=== PATIENT | female | born 1940 | race Caucasian/White ===

== ENCOUNTER 2016-10-30 12:22 | Outpatient (CLI) | payer MEDICARE ==
[~2016-10-30] VITALS: Ht 175.3 cm; Wt 96.6 kg
[~2016-10-30 12:22] MED LIST: AMOX500C2; AMOX500C2 PO; ASP81CT PO; ASPI-198 PO; ASPI-892 PO; CARB1DRO19 OP; CARV6.252 PO; CLOP75TA PO; DEXT1DRO7 OP; DILT90TA18 PO; DLT90CCR; DOXY100C2 PO; EYE SUPPLEMENT PO; FISH PO; I-VITE PO; IBUP200C92 PO; INSASP10V; INSASP10V SC; INSASP10V SQ; INSU100V5 SQ; INSU100V6; LEVO75TA58 PO; LORA10CA PO; MTF500T PO; NAPR-248 PO; NIAC-4 PO; NOVALOG; OMEP20CA6 PO; PRAV40TA PO; PRD20T PO
--- OUTSIDE RECORDS SUMMARY | 2016-10-30 12:28 | XMS REPORT | Continuity of Care Document ---
Author Author [facility] Organization [facility] Address Unknown Phone Unavailable Allergies Active Description Code Type Severity Reaction Onset Reported/Identified Relationship to Patient Clinical Status Yes adhesive [id number] Drug Allergy Unknown N/A 08/11/2013 Yes lisinopril [id number] Drug Allergy Unknown COUGH 08/11/2013 Yes Isnrefb-Ylw-Wgc Reductase Inhibitor [id number] Drug Allergy Unknown MUSCLE PAIN 08/11/2013 Yes lisinopril lisinopril Drug Allergy Severe COUGH 08/10/2014 Yes Uwclotq-Tle-Aae Reductase Inhibitor Muhpqxn-Ppd-Iaw Reductase Inhibitor Drug Allergy Severe MUSCLE ACHES 08/10/2014 Medications Problems Date Dx Coded Attending Type Code Diagnosis Diagnosed By 09/11/2010 Ot 562.10 09/11/2010 Ot V12.72 09/11/2010 Ot V76.51 01/15/2011 Ot 244.9 01/15/2011 Ot 401.9 01/15/2011 Ot 719.46 01/15/2011 Ot 724.3 01/15/2011 Ot V57.1 02/05/2011 Ot 250.00 02/05/2011 Ot 272.4 02/05/2011 Ot 309.0 02/05/2011 Ot 401.9 02/05/2011 Ot 434.91 02/05/2011 Ot 728.87 02/05/2011 Ot 784.59 02/05/2011 Ot 787.20 02/05/2011 Ot V58.67 04/03/2013 BRANDON GAYLE Ot 692.9 04/03/2013 BRANDON GAYLE Ot 911.4 04/03/2013 BRANDON GAYLE Ot E000.8 04/03/2013 BRANDON GAYLE Ot E906.4 08/16/2013 EDWIN DDS, KEYANNA Ot 173.31 08/16/2013 LOWKeren DDS, KEYANNA Ot 173.32 08/16/2013 LOWKeren DDS, KEYANNA Ot 250.00 08/16/2013 LOWE DDS, KEYANNA Ot 401.9 08/16/2013 LOWE DDS, KEYANNA Ot V58.69 08/07/2014 Ot 794.5 08/07/2014 Ot 250.00 08/07/2014 Ot 272.4 08/07/2014 Ot 401.9 08/07/2014 Ot 786.09 08/07/2014 LOWE DDS, KEYANNA Ot 173.31 08/07/2014 LOWE DDS, KEYANNA Ot V72.81 08/07/2014 LOWE DDS, KEYANNA Ot V74.8 08/15/2014 JUD ALLRED MD, Ot V72.84 08/30/2014 JUD ALLRED MD, Ot V72.84 09/25/2014 JUD ALLRED MD, Ot V72.84 Procedures Code Description Performed By Performed On 65.63 LAPAROSCOP REMOVE OVARIES/TUBES Jud Allred MD 08/11/2014 70.78 VAGINAL SUSPENSION AND FIXATION WITH GRAFT OR PROS Jud Allred MD 08/11/2014 Results Test Result Range CBC - 08/11/14 13:29 MEAN CELL HGB 27.5 pg 27.0-33.0 MEAN CELL HGB CONCENTRATION 31.6 g/dL 32.0-37.0 MEAN CELL VOLUME 86.8 fl 80.0-100.0 RED BLOOD CELL 4.33 m/cumm 4.00-6.00 RED CELL DISTRIBUTION WIDTH 13.8 % 11.0- 15.6 WHITE BLOOD CELL 4.0 k/cumm 5.0-10.0 HEMOGLOBIN 11.9 gm/dL 12.0-16.0 HEMATOCRIT 37.6 % 37.0-47.0 PLATELET COUNT 145 k/cumm 150-400 MRSA SURVEILLANCE SCREEN - 08/11/14 13:29 Microbiology METABOLIC PANEL, BASIC - 08/11/14 13:30 POTASSIUM 4.0 mmol/L 3.5-5.3 EST GFR (MDRD) > 60 mL/min > 59 ANION GAP 7 mmol/L 5-15 EST CrCl (CG) > 60 mL/min > 59 GLUCOSE 115 mg/dL 70-99 CALCIUM 9.7 mg/dL 8.5-10.1 BLOOD UREA NITROGEN 26 mg/dL 7-20 CREATININE 0.8 mg/dL 0.6-1.0 SODIUM 144 mmol/L 135-148 CHLORIDE 107 mmol/L 98-110 CARBON DIOXIDE 30 mmol/L 21-32 GLUCOSE (POC) - 08/11/14 13:56 GLUCOSE (POC) 107 mg/dL 70-99 GLUCOSE (POC) - 08/11/14 20:55 GLUCOSE (POC) 163 mg/dL 70-99 HGB HCT - 08/11/14 22:20 MEAN CELL VOLUME 84.5 fl 80.0-100.0 HEMOGLOBIN 12.1 gm/dL 12.0-16.0 HEMATOCRIT 36.0 % 37.0-47.0 CBC - 08/12/14 05:22 MEAN CELL HGB 27.6 pg 27.0-33.0 MEAN CELL HGB CONCENTRATION 32.4 g/dL 32.0-37.0 MEAN CELL VOLUME 85.2 fl 80.0-100.0 RED BLOOD CELL 4.20 m/cumm 4.00-6.00 RED CELL DISTRIBUTION WIDTH 13.7 % 11.0- 15.6 WHITE BLOOD CELL 7.1 k/cumm 5.0-10.0 HEMOGLOBIN 11.6 gm/dL 12.0-16.0 HEMATOCRIT 35.8 % 37.0-47.0 PLATELET COUNT 124 k/cumm 150-400 GLUCOSE (POC) - 08/12/14 06:38 GLUCOSE (POC) 155 mg/dL 70-99 GLUCOSE (POC) - 08/12/14 10:52 GLUCOSE (POC) 196 mg/dL 70-99 Encounters ACCT No. Visit Date/Time Discharge Status Pt. Type Provider Facility Loc./Unit Complaint [id number] 08/07/2014 08:38:00 2013 23:59:59 CLS Outpatient JUD ALLRED MD [facility] CARD [id number] 08/15/2013 10:38:00 2012 11:00:00 DIS Outpatient EDWIN NEVAREZKEYANNA [facility] SDC [id number] 08/11/2013 12:31:00 2012 23:59:59 CLS Outpatient EDWIN NEVAREZROSALINDAEW [facility] PREOP [id number] 04/03/2013 18:40:00 2012 21:17:00 DIS Emergency BRANDON GAYLE [facility] ER [id number] 06/16/2011 09:52:00 Document Registration [id number] 02/03/2011 08:17:00 Document Registration [id number] 01/15/2011 08:35:00 Document Registration [id number] 09/11/2010 07:40:00 Document Registration [id number] 01/11/2010 14:45:00 Document Registration
[2016-10-30] MEDS ORDERED: CARB15DR3 OP (12:52)
[2016-10-30] MEDS ORDERED: [UNRECOGNIZED DRUG - CODE] TP (12:52)
[2016-10-30] MEDS ORDERED: CARV12.53 PO (12:52)
[2016-10-30] MEDS ORDERED: METF500T4 PO (12:52)
[2016-10-30] MEDS ORDERED: OXYB10TA PO (12:52)
[2016-10-30] MEDS ORDERED: MELO15TA39 PO (12:52)
[2016-10-30] MEDS ORDERED: CHOL10007 PO (12:52)
[2016-10-30] MEDS ORDERED: VIT1CAPS44 PO (12:52)
[2016-10-30] MEDS ORDERED: NF-COLE1GM PO (12:52)
[2016-10-30] MEDS ORDERED: POLY17PO6 PO (12:57)
[2016-10-30 12:59] VITALS: BP 149/82
[2016-10-30 13:37] LABS: BASOPHILS % (AUTO) 0 % (0-10); EOSINOPHILS # (AUTO) 0.1 10^3/uL (0.0-0.3); EOSINOPHILS % (AUTO) 2 % (0-10); LYMPHOCYTES # (AUTO) 1.3 X 10^3 (1.0-4.0); LYMPHOCYTES % (AUTO) 25 % (12-44); MEAN CORPUSCULAR HEMOGLOBIN 28 PG (25-34); MEAN CORPUSCULAR HGB CONC 33 G/DL (32-36); MEAN CORPUSCULAR VOLUME 84 FL (80-99); MEAN PLATELET VOLUME 10.9 FL (7.4-10.4); MONOCYTES # (AUTO) 0.3 X 10^3 (0.0-1.0); MONOCYTES % (AUTO) 6 % (0-12); NEUTROPHILS # (AUTO) 3.5 X 10^3 (1.8-7.8); NEUTROPHILS % (AUTO) 67 % (42-75); PLATELET COUNT 156 10^3/uL (130-400); RED CELL DISTRIBUTION WIDTH 13.9 % (10.0-14.5); WHITE BLOOD COUNT 5.2 10^3/uL (4.3-11.0)
[2016-10-30 14:00] LABS: ALBUMIN 4.2 G/DL (3.2-4.5); BILIRUBIN,TOTAL 0.6 MG/DL (0.1-1.0); CALCIUM 9.7 MG/DL (8.5-10.1); CREATININE SERUM 0.94 MG/DL (0.60-1.30); POTASSIUM 4.4 MMOL/L (3.6-5.0); TOTAL PROTEIN 6.7 G/DL (6.4-8.2)
== END 2016-10-30 14:51 | disposition home or self-care (01) ==
LOC: PREOP 12:22
PROVIDERS: ATTEND Otolaryngology Otolaryngology/Facial Plastic Surgery
DX: Z01.812 Encounter for preprocedural laboratory examination (principal); Z01.818 Encounter for other preprocedural examination; Z11.2 Encounter for screening for other bacterial diseases; L98.9 Disorder of the skin and subcutaneous tissue, unspecified; E11.9 Type 2 diabetes mellitus without complications
CPT/HCPCS: 36415; 80053; 85025; 87081; 93005

== ENCOUNTER 2016-11-07 06:49 | Day surgery (SDC) | payer MEDICARE ==
[~2016-11-07] VITALS: Ht 175.3 cm; Wt 96.6 kg
[~2016-11-07 06:49] MED LIST changes: +CARB15DR3 OP; +CARV12.53 PO; +CHOL10007 PO; +MELO15TA39 PO; +METF500T4 PO; +NF-COLE1GM PO; +OXYB10TA PO; +POLY17PO6 PO; +VIT1CAPS44 PO; +[UNRECOGNIZED DRUG - CODE] TP
--- OUTSIDE RECORDS SUMMARY | 2016-11-07 06:53 | XMS REPORT | Continuity of Care Document ---
Author Author [facility] Organization [facility] Address Unknown Phone Unavailable Care Team Providers Care Hematology Technician Name Role Phone HUGO ALEXIS MD PCP Insurance Providers Payer Name Policy Number Subscriber Name Relationship Wps Medicare [id number] Leonora Tompkins 18 Self / Same As Patient Blue Cross [facility] Supp [id number] Leonora Tompkins 18 Self / Same As Patient Advance Directives Directive Response Recorded Date/Time Advance Directives Yes 10/30/16 12:41pm Health Care Power of Package Delivery Room Service Runner Yes 10/30/16 12:41pm Organ Donor Yes 08/15/13 8:23pm Resuscitation Status Full Code 10/30/16 12:41pm Problems No problem information available. Medications Current Home Medications Medication Dose Units Route Directions Days/Qty Instructions Start Date Levothyroxine Sodium 75 Mcg 75 Mcg Oral Daily 02/01/11 Loratadine 10 Mg 10 Mg Oral Daily 02/01/11 Omeprazole 20 Mg 20 Mg Oral Daily 02/01/11 Insulin Aspart 10 Unit/0.1 Ml 8 Unit Subcutaneously Twice A Day 08/12 Insulin Detemir 100 Unit/1 Ml 10 Unit Sub-Q Bedtime 08/11/13 Colestipol Hcl 1 Gm 1 Gm Oral Daily 10/30/16 Vit C/E/Zn/Coppr/Lutein/Zeaxan 1 Each 2 Each Oral Daily 10/30/16 Oxybutynin Chloride 10 Mg 10 Mg Oral Daily 10/30/16 Meloxicam 15 Mg 15 Mg Oral Daily 10/30/16 Cholecalciferol (Vitamin D3) 1,000 Unit 2,000 Unit Oral Daily Metformin Hcl 500 Mg 500 Mg Oral Daily 10/30/16 Carvedilol 12.5 Mg 6.25 Mg Oral Twice A Day 10/30/16 Urea 255 Gm 255 Gm Topical Twice A Day 10/30/16 Carboxymethylcellulose Sodium 15 Ml 15 Ml Ophthalmic Q3hr From Start Time 10/30/16 Polyethylene Glycol 3350 17 Gm 17 Gm Oral Daily 10/30/16 Past Home Medications Medication Directions Ordered Status Insulin Glargine 100 Unit/1 Ml Vial, 42 Noon 02/01/11 Discontinued [Novalog] , 02/01/11 Discontinued Amoxicillin 500 Mg Capsule, 02/01/11 Discontinued Aspirin 81 Mg Tabec, 81 Mg Oral Daily 02/01/11 Discontinued Carvedilol (Coreg) 6.25 Mg Tablet, 3.125 Mg Oral Twice A Day 02/01/11 Discontinued Diltiazem Hcl 90 Mg Cap.sr.12h, 0.5 Daily 02/01/11 Discontinued Metformin Hcl (Glucophage) 500 Mg Tablet, 500 Mg Oral Twice A Day 02/01/11 Discontinued Pravastatin Sodium 40 Mg Tablet, 80 Mg Oral Bedtime 02/01/11 Discontinued Insulin Aspart 10 Unit/0.1 Ml Susp, 14 Am 02/01/11 Discontinued Insulin Aspart 10 Unit/0.1 Ml Susp, 12 Unit Sub-Q Ac Bkfst Ac Supper Discontinued Diltiazem Hcl 90 Mg Tablet, 240 Mg Oral Bedtime 02/02/11 Discontinued Aspirin/Calcium Carbonate/Mag 325 Mg Tablet, 325 Mg Oral Daily 02/05/11 Discontinued Amoxicillin 500 Mg Capsule, 1 Each Oral Twice A Day 02/05/11 Discontinued Clopidogrel Bisulfate 75 Mg Tablet, 1 Each Oral Daily 02/05/11 Discontinued Prednisone 20 Mg Tab, 40 Mg Oral Daily 04/03/13 Discontinued Doxycycline Hyclate (Vibramycin) 100 Mg Capsule, 1 Each Oral Twice A Day 12/11 Discontinued Dextran 70/Hypromellose 1 Each Droperette, 1 Each Ophthalmic 5 Times Per Day 08/11/13 Discontinued Aspirin 81 Mg Chew, 81 Mg Oral Daily 08/11/13 Discontinued Ibuprofen 200 Mg Capsule, 200 Mg Oral As Needed as needed for Pain 08/11/13 Discontinued Naproxen 500 Mg Tablet.dr, 250 Mg Oral Three Times A Day 08/11/13 Discontinued Niacin 500 Mg Tab.er.24h, 500 Mg Oral Bedtime 08/11/13 Discontinued Carboxymethylcellulose Sodium 1 Each Droperette, 1 Each Ophthalmic Bedtime Discontinued [Eye Supplement+Fish] , 1 Tab Oral Twice A Day 08/11/13 Discontinued [I-Robert] , 2 Tab Oral Twice A Day 08/11/13 Discontinued Social History Social History Problem Response Recorded Date/Time Alcohol Use Rarely Uses 08/15/2013 8:23pm Recreational Drug Use No 08/15/2013 8:23pm Recent Foreign Travel No 10/30/2016 12:39pm Recent Infectious Disease Exposure No 10/30/2016 12:39pm Sexually Transmitted Disease No 10/30/2016 12:41pm HIV/AIDS No 10/30/2016 12:41pm Smoking Status Never a Smoker 10/30/2016 12:41pm Recent Hopitalizations No 10/30/2016 12:41pm Sexually Transmitted Disease No 10/30/2016 12:41pm Query Response Start Date Stop Date Smoking Status Never a Smoker Hospital Discharge Instructions No hospital discharge instructions. Plan of Care Discharge Date 10/30/16 2:51pm Prescriptions See Medication Section Functional Status No functional status results. Allergies, Adverse Reactions, Alerts Allergen Type Severity Reaction Status Last Updated Tmystbo-Xuu-Bqa Reductase Inhibitors ([id number]) Allergy Unknown MUSCLE PAIN Active 10/30/16 lisinopril ([id number]) Adverse Reaction Unknown COUGH Active 10/30/16 adhesive ([id number]) Allergy Unknown Active 10/30/16 Immunizations No immunization records. Vital Signs Acute Vital Signs Vital Response Date/Time Pulse Rate (adult) 68 bpm (60 - 90) 10/30/2016 12:59pm Respiratory Rate 16 bpm (12 - 24) 10/30/2016 12:59pm O2 Sat by Pulse Oximetry 98 % (88 - 100) 10/30/2016 12:59pm Blood Pressure 149/82 mm Hg 10/30/2016 12:59pm Blood Pressure Mean 104 mm Hg 10/30/2016 12:59pm Pain Numeric Pain Scale 0-No Pain 10/30/2016 12:59pm Height (Feet) 5 feet 10/30/2016 12:39pm Height (Inches) 9.00 inches 10/30/2016 12:39pm Height (Calculated Centimeters) 175.855794 cm 10/30/2016 12:39pm Weight (Pounds) 213 pounds 10/30/2016 12:39pm Weight (Ounces) 0.0 oz 10/30/2016 12:39pm Weight (Calculated Grams) 47629.18 gm 10/30/2016 12:39pm Weight (Calculated Kilograms) 96.808740 kilograms 10/30/2016 12:39pm Calculated BMI 31.5 10/30/2016 12:39pm Results Laboratory Results Test Name Result Units Flags Reference Collection Date/Time Result Date/ Time Comments White Blood Count 5.2 10^3/uL 4.3-11.0 10/30/2016 1:10pm 10/30/2016 1: 38pm Red Blood Count 4.60 10^6/uL 4.35-5.85 10/30/2016 1:10pm 10/30/2016 1: 38pm Hemoglobin 12.8 G/DL 11.5-16.0 10/30/2016 1:10pm 10/30/2016 1:38pm Hematocrit 39 % 35-52 10/30/2016 1:10pm 10/30/2016 1:38pm Mean Corpuscular Volume 84 FL 80-99 10/30/2016 1:10pm 10/30/2016 1: 38pm Mean Corpuscular Hemoglobin 28 PG 25-34 10/30/2016 1:10pm 10/30/2016 1: 38pm Mean Corpuscular Hemoglobin Concent 33 G/DL 32-36 10/30/2016 1:10pm 10/2016 1:38pm Red Cell Distribution Width 13.9 % 10.0-14.5 10/30/2016 1:10pm 2016 1:38pm Platelet Count 156 10^3/uL 130-400 10/30/2016 1:10pm 10/30/2016 1:38pm Mean Platelet Volume 10.9 FL H 7.4-10.4 10/30/2016 1:10pm 10/30/2016 1: 38pm Neutrophils (%) (Auto) 67 % 42-75 10/30/2016 1:10pm 10/30/2016 1:38pm Lymphocytes (%) (Auto) 25 % 12-44 10/30/2016 1:10pm 10/30/2016 1:38pm Monocytes (%) (Auto) 6 % 0-12 10/30/2016 1:10pm 10/30/2016 1:38pm Eosinophils (%) (Auto) 2 % 0-10 10/30/2016 1:10pm 10/30/2016 1:38pm Basophils (%) (Auto) 0 % 0-10 10/30/2016 1:10pm 10/30/2016 1:38pm Neutrophils # (Auto) 3.5 X 10^3 1.8-7.8 10/30/2016 1:10pm 10/30/2016 1: 38pm Lymphocytes # (Auto) 1.3 X 10^3 1.0-4.0 10/30/2016 1:10pm 10/30/2016 1: 38pm Monocytes # (Auto) 0.3 X 10^3 0.0-1.0 10/30/2016 1:10pm 10/30/2016 1: 38pm Eosinophils # (Auto) 0.1 10^3/uL 0.0-0.3 10/30/2016 1:10pm 10/30/2016 1 :38pm Basophils # (Auto) 0.0 10^3/uL 0.0-0.1 10/30/2016 1:10pm 10/30/2016 1: 38pm Sodium Level 141 MMOL/L 135-145 10/30/2016 1:10pm 10/30/2016 2:02pm Potassium Level 4.4 MMOL/L 3.6-5.0 10/30/2016 1:10pm 10/30/2016 2:02pm Chloride Level 108 MMOL/L H 98-107 10/30/2016 1:10pm 10/30/2016 2:02pm Carbon Dioxide Level 24 MMOL/L 21-32 10/30/2016 1:10pm 10/30/2016 2: 02pm Anion Gap 9 MMOL/L 5-14 10/30/2016 1:10pm 10/30/2016 2:02pm Blood Urea Nitrogen 23 MG/DL H 7-18 10/30/2016 1:10pm 10/30/2016 2:02pm Creatinine 0.94 MG/DL 0.60-1.30 10/30/2016 1:10pm 10/30/2016 2:02pm BUN/Creatinine Ratio 24 10/30/2016 1:10pm 10/30/2016 2:02pm Estimat Glomerular Filtration Rate 58 10/30/2016 1:10pm 10/30/2016 2:02pm GFR INTERPRETIVE DATA UNITS FOR ESTIMATED GFR (eGFR): mL/min/1.73 M2 REFERENCE RANGE FOR ESTIMATED GFR (eGFR) eGFR NORMAL eGFR >60 MODERATELY DECREASED eGFR 30-59 SEVERLY DECREASED eGFR 15-29 KIDNEY FAILURE <15 (OR DIALYSIS) Glucose Level 194 MG/DL H 70-105 10/30/2016 1:10pm 10/30/2016 2:02pm Calcium Level 9.7 MG/DL 8.5-10.1 10/30/2016 1:10pm 10/30/2016 2:02pm Total Bilirubin 0.6 MG/DL 0.1-1.0 10/30/2016 1:10pm 10/30/2016 2:02pm Alkaline Phosphatase 67 U/L 40-136 10/30/2016 1:10pm 10/30/2016 2:02pm Aspartate Amino Transf (AST/SGOT) 19 U/L 5-34 10/30/2016 1:10pm 2016 2:02pm Alanine Aminotransferase (ALT/SGPT) 14 U/L 0-55 10/30/2016 1:10pm 10/30 2:02pm Total Protein 6.7 G/DL 6.4-8.2 10/30/2016 1:10pm 10/30/2016 2:02pm Albumin 4.2 G/DL 3.2-4.5 10/30/2016 1:10pm 10/30/2016 2:02pm Procedures Procedure Status Date Provider(s) Tracing only of electrocardiogram Active 10/30/16 DAVID KEITA MD Encounters Encounter Location Arrival/Admit Date Discharge/Depart Date Attending Provider Departed Clinic [facility] 10/30/16 12:22pm 10/30/16 2: 51pm DAVID KEITA MD
--- OUTSIDE RECORDS SUMMARY | 2016-11-07 06:54 | XMS REPORT | Continuity of Care Document ---
Author Author [facility] Organization [facility] Address Unknown Phone Unavailable Care Team Providers Care Pressure Welder Name Role Phone HUGO ALEXIS MD PCP Insurance Providers Payer Name Policy Number Subscriber Name Relationship Wps Medicare [id number] Leonora Tompkins 18 Self / Same As Patient Blue Cross [facility] Supp [id number] Leonora Tompkins 18 Self / Same As Patient Advance Directives Directive Response Recorded Date/Time Advance Directives Yes 10/30/16 12:41pm Health Care Power of Gear Inspector Yes 10/30/16 12:41pm Organ Donor Yes 08/15/13 [...] Allergen Type Severity Reaction Status Last Updated Gmzahzk-Bsz-Mrn Reductase Inhibitors ([id number]) Allergy Unknown MUSCLE PAIN Active 10/30/16 lisinopril ([id number]) Adverse Reaction Unknown COUGH Active 10/30/16 adhesive ([id number]) Allergy Unknown Active 10/30/16 Immunizations No immunization [...] 9.00 inches 10/30/2016 12:39pm Height (Calculated Centimeters) 175.924304 cm 10/30/2016 12:39pm Weight (Pounds) 213 pounds 10/30/2016 12:39pm Weight (Ounces) 0.0 oz 10/30/2016 12:39pm Weight (Calculated Grams) 63416.18 gm 10/30/2016 12:39pm Weight (Calculated Kilograms) 96.647899 kilograms 10/30/2016 12:39pm Calculated BMI 31.5 10/30/2016 [...] Discharge/Depart Date Attending Provider Departed Clinic [facility] 10/30/16 12:22pm 10/30/16 2: 51pm DAVID KEITA MD
[2016-11-07] MEDS ORDERED: FAMOTIDINE 20MG/2ML IV (PEPCID) ONE (07:27)
[2016-11-07 07:30] VITALS: BP 186/84
[2016-11-07] MEDS: LACTATED RINGERS 1,000 ML IV PRN ×2 (07:45→10:08)
[2016-11-07] MEDS ORDERED: ONDANSETRON 4 MG/2 ML (SDV) Z0FRAN ONE (08:02)
[2016-11-07] MEDS ORDERED: LACTATED RINGERS 1,000 ML IV ONE ×2 (08:02→10:03)
[2016-11-07] MEDS ORDERED: proPOfol 200 MG/20 ML (DIPRIVAN) VIAL IV ONE (08:02)
[2016-11-07] MEDS ORDERED: LIDOCAINE PF 2% 10 ML (XYLOCAINE) AMP ONE (08:02)
[2016-11-07] MEDS ORDERED: MIDAZOLAM 2 MG/2 ML (VERSED) VIAL ONE (08:03)
[2016-11-07] MEDS ORDERED: fentaNYL INJECTION 100 MCG/2 ML AMP ONE (08:03)
[2016-11-07] MEDS ORDERED: SEVOFLURANE (ULTANE) 15 ML INHAL SOLN ONE ×8 (08:06→10:21)
[2016-11-07] MEDS ORDERED: LACTATED RINGERS 1,000 ML IV PRN (08:06)
[2016-11-07] MEDS ORDERED: MUPIROCIN 2% OINT 22 GM (BACTROBAN) TUBE ONE (08:11)
[2016-11-07] MEDS ORDERED: LIDOCAINE/EPI 1%-1:100,000 (XYLOCAINE) 20ML ONE (08:11)
[2016-11-07] MEDS ORDERED: FAMOTIDINE 20MG/2ML IV (PEPCID) IV ONE (08:15)
--- NOTE | 2016-11-07 08:32 | Progress Note-Pre Operative ---
Pre-Operative Progress Note H&P Reviewed The H&P was reviewed, patient examined and no changes noted. Date H&P Reviewed: Nov 07, 2016 Time H&P Reviewed: 08:00 Pre-Operative Diagnosis: Right EAr Lesion DAVID KEITA MD Nov 07, 2016 8:32 am
[2016-11-07] MEDS ORDERED: GLYCOPYRROLATE 0.2 MG/ML (ROBINUL) 2 ML VIAL ONE (09:05)
[2016-11-07] MEDS ORDERED: HYDROcodone/APAP 5 MG/325 MG (LORTAB) TAB PO PRN (10:30)
[2016-11-07] MEDS ORDERED: ACETAMINOPHEN 325 MG TABLET/CAPLET (TYLENOL) PO PRN ×3 (10:30)
--- NOTE | 2016-11-07 10:30 | Progress Note-Post Operative ---
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
[2016-11-07] MEDS ORDERED: ONDANSETRON 4 MG/2 ML (SDV) Z0FRAN IVP PRN (10:45)
[2016-11-07] MEDS ORDERED: MEPERIDINE (DEMEROL) INJ 50 MG/ML IVP PRN (10:45)
[2016-11-07] MEDS ORDERED: morphine INJ 10 MG/ML 1ML (SYR OR VIAL) IVP PRN (10:45)
[2016-11-07 11:30] VITALS: BP 172/85
[2016-11-07 12:00] VITALS: BP 181/92
[2016-11-07] MEDS ORDERED: HYDR-3812 PO (12:05)
[2016-11-07] MEDS ORDERED: CEPH-507 PO (12:05)
[2016-11-07] MEDS ORDERED: MUPI22OI2 TP (12:05)
[2016-11-07 12:30] VITALS: BP 179/98
== END 2016-11-07 12:37 | disposition home or self-care (01) ==
LOC: SDC 06:49
PROVIDERS: ATTEND Otolaryngology Otolaryngology/Facial Plastic Surgery
DX: C44.212 Basal cell carcinoma of skin of right ear and external auricular canal (principal); C44.310 Basal cell carcinoma of skin of unspecified parts of face; E11.9 Type 2 diabetes mellitus without complications
CPT/HCPCS: 82962; 88305; 88331

== ENCOUNTER 2016-12-16 19:22 | Emergency (ER) | payer MEDICARE ==
[~2016-12-16] VITALS: Ht 172.7 cm; Wt 96.6 kg
[~2016-12-16 19:22] MED LIST changes: +CEPH-507 PO; +HYDR-3812 PO; +MUPI22OI2 TP
--- NOTE | 2016-12-16 20:30 | ED General ---
General Chief Complaint: General Problems/Pain Stated Complaint: POST OP R EAR BLEEDING Nursing Triage Note: Post op bleeding to right ear, had skin cancer removed this a.m. in . Bleeding began on the way home, arrived home around 1900. Pt had a wide margin cut to clear area of cancer. Nursing Sepsis Screen: No Definite Risk Source of Information: Patient, Family Exam Limitations: No Limitations (BRANDON ELKINS) Source of Information: Patient (ORACIO POSEY DO) History of Present Illness Time Seen by Provider: 20:30 Initial Comments Patient seen, evaluated, and care provided by Dr. Posey. (BRANDON ELKINS) Time Seen by Provider: 19:34 Initial Comments PT HAD MOHS SURGERY TO RIGHT EAR AND FACE FOR BASAL CELL SKIN CANCER TODAY BY DR. RILEY IN [place] PT STATES SHE LEFT THERE AROUND 1600 AND DROVE HOME. SOMETIME ON THE WAY HOME, SHE BEGAN TO HAVE BLEEDING FROM THE SURGICAL SITE AND THEN CAME HERE HAS NOT ATTEMPTED TO CONTACT DR. RILEY SINCE SHE LEFT THERE. NO SIGNIFICANT PAIN, AREA STILL FEELS NUMB FROM LOCAL ANESTHETIC PT IS NOT CURRENTLY TAKING ANY ASPIRIN OR BLOOD THINNERS PT HAD SAME SURGERY TO LEFT FOREHEAD/SIKHISM AREA A WEEK AGO, AND THAT AREA IS HEALING WELL PT IS TO RETURN NEXT WEEK AND HAVE SKIN GRAFTS TO BOTH AREAS. PT HAS HAD 4 PRIOR SURGERIES TO THIS SAME AREA AROUND RIGHT EAR FOR SKIN CANCER , AND IT KEEPS COMING BACK PCP: DR. MARIE (ORACIO POSEY DO) Allergies and Home Medications Allergies Coded Allergies: Fbeezkk-Lci-Cqf Reductase Inhibitor (Unverified Allergy, Unknown, MUSCLE PAIN, 10/30/16) adhesive (Unverified Allergy, Unknown, 10/30/16) lisinopril (Unverified Adverse Reaction, Unknown, COUGH, 10/30/16) Home Medications Carboxymethylcellulose Sodium 15 Ml Drp.lq.gel, 15 ML OP Q3HR, (Reported) Carvedilol 12.5 Mg Tablet, 6.25 MG PO BID, (Reported) Cephalexin 500 Mg Capsule, 1 CAP PO TID for 10 Days, Ref 1 Prescribed by: MOR LINARES on 11/07/16 1205 Cholecalciferol (Vitamin D3) 1,000 Unit Capsule, 2,000 UNIT PO DAILY, (Reported) Colestipol HCl 1 Gm Tab, 1 GM PO DAILY, (Reported) Hydrocodone/Acetaminophen 1 Each Tablet, 1-2 TAB PO Q4H PRN for PAIN, #40 Ref 0 Prescribed by: MOR LINARES on 11/07/16 1205 Insulin Aspart 10 Unit/0.1 Ml Susp, 8 UNIT SC BID, (Reported) Insulin Detemir 100 Unit/1 Ml Vial, 10 UNIT SQ HS, (Reported) Levothyroxine Sodium 75 Mcg Tablet, 75 MCG PO DAILY, (Reported) Loratadine 10 Mg Capsule, 10 MG PO DAILY, (Reported) Meloxicam 15 Mg Tablet, 15 MG PO DAILY, (Reported) Metformin HCl 500 Mg Tablet, 500 MG PO DAILY, (Reported) Mupirocin 22 Gm Oint...g., 1 APPLIC TP BID, #1 Ref 0 Prescribed by: MOR LINARES on 11/07/16 1205 Omeprazole 20 Mg Capsule.dr, 20 MG PO DAILY, (Reported) Oxybutynin Chloride 10 Mg Tab.er.24, 10 MG PO DAILY, (Reported) Polyethylene Glycol 3350 17 Gm Powd.pack, 17 GM PO DAILY, (Reported) Urea 255 Gm Cream..g., 255 GM TP BID, (Reported) Vit C/E/Zn/Coppr/Lutein/Zeaxan 1 Each Capsule, 2 EACH PO DAILY, (Reported) Constitutional: no symptoms reported EENTM: see HPI Musculoskeletal: see HPI Skin: see HPI Psychiatric/Neurological: No Symptoms Reported (ORACIO POSEY DO) Past Ygboahf-Fxlvma-Bevpqz Hx Patient Social History Alcohol Use: Occasionally Uses Recreational Drug Use: No Smoking Status: Former Smoker Recent Foreign Travel: No Contact w/Someone Who Travel: No Recent Infectious Disease Expo: No Recent Hopitalizations: No (BRANDON ELKINS) Alcohol Use: Denies Use Recreational Drug Use: No Smoking Status: Never a Smoker (ORACIO POSEY DO) Immunizations Up To Date Tetanus Booster (TDap): Unknown Date of Pneumonia Vaccine: Jun 09, 2016 Date of Influenza Vaccine: Jun 09, 2016 (BRANDON ELKINS) Seasonal Allergies Seasonal Allergies: Yes (MILD) (BRANDON ELKINS) Surgeries HX Surgeries: Yes (EYE LIDS, CATARACTS, BLADDER TIE UP x2, SKIN CANCERS REMOVED ) Surgeries: Adenoidectomy, Hysterectomy, Tonsillectomy (BRANDON ELKINS) HX Surgeries: Yes (SKIN CANCERS REMOVED FROM FACE; BLEPHAROPLASTY; COLONOSCOPIES; HYST/OVARIES INTACT;BLADDER SUSPENSION) Surgeries: Adenoidectomy, Bladder Surgery, Hysterectomy, Tonsillectomy (JAZ,ORACIO K DO) Respiratory Hx Respiratory Disorders: No (BRANDON ELKINS) Hx Respiratory Disorders: No (JAZ,ORACIO K DO) Cardiovascular Hx Cardiac Disorders: Yes Cardiac Disorders: Hypertension (BRANDON ELKINS) Hx Cardiac Disorders: Yes Cardiac Disorders: High Cholesterol, Hypertension (JAZ,ORACIO K DO) Neurological Hx Neurological Disorders: Yes (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) Neurological Disorders: Stroke (BRANDON ELKINS) Hx Neurological Disorders: Yes Neurological Disorders: Stroke (JAZ,ORACIO K DO) Reproductive System Hx Reproductive Disorders: No Sexually Transmitted Disease: No HIV/AIDS: No 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 (BRANDON ELKINS) Genitourinary Hx Genitourinary Disorders: No (BRANDON ELKINS) Hx Genitourinary Disorders: Yes (BLADDER CONTROL ISSUES) (JAZ,ORACIO K DO) Gastrointestinal Hx Gastrointestinal Disorders: Yes Gastrointestinal Disorders: Gastroesophageal Reflux, Chronic Constipation, Diverticulosis (BRANDON ELKINS) Hx Gastrointestinal Disorders: No (JAZ,ORACIO K DO) Musculoskeletal Hx Musculoskeletal Disorders: Yes Musculoskeletal Disorders: Arthritis (BRANDON ELKINS) Hx Musculoskeletal Disorders: Yes Musculoskeletal Disorders: Arthritis (JAZ,ORACIO K DO) Endocrine Hx Endocrine Disorders: Yes Endocrine Disorders: Diabetes, Insulin dep, Hypothyroidsim (BRANDON ELKINS) Hx Endocrine Disorders: Yes (INSULIN + ORAL MEDICAITONS) Endocrine Disorders: Diabetes, Insulin dep, Hypothyroidsim (JAZ,ORACIO K DO) HEENT HX ENT Disorders: Yes (GLASSES) Loss of Vision: Bilateral Hearing Impairment: Denies (BRANDON ELKINS) HX ENT Disorders: Yes (RETINAL BLEEDS--NO SURGERY) (JAZ,ORACIO K DO) Cancer Hx Cancer: Yes Cancer: Skin (BRANDON ELKINS) Hx Cancer: Yes (BASAL CELL SKIN CANCERS--MULTIPLE) Cancer: Skin (JAZ,ORACIO K DO) Psychosocial Hx Psychiatric Problems: No (BRANDON ELKINS) Hx Psychiatric Problems: No (ORACIO POSEY DO) Integumentary HX Skin/Integumentary Disorder: Yes (Dressing to right ear with shadowing and bleeding noted, drsg to left head) (BRANDON ELKINS) HX Skin/Integumentary Disorder: Yes (SKIN CANCER) (ORACIO POSEY DO) Blood Transfusions Hx Blood Disorders: No (BRANDON ELKINS) Hx Blood Disorders: No (ORACIO POSEY DO) Family Medical History Significant Family History: No Pertinent Family Hx Family Medial History: Cancer 09 SISTER Family history: Diabetes mellitus 03 MOTHER Stroke 03 MOTHER (BRANDON ELKINS) Family Medial History: Cancer 09 SISTER Family history: Diabetes mellitus 03 MOTHER Stroke 03 MOTHER (ORACIO POSEY DO) Physical Exam Vital Signs Vital Sign - Last 12Hours 12/16/16 19:25 Temp 98.2 Pulse 71 Resp 16 B/P (MAP) 195/97 Pulse Ox 95 O2 Delivery Room Air (ORACIO POSEY DO) Vital Signs Capillary Refill : Less Than 3 Seconds (BRANDON ELKINS) General Appearance: No Apparent Distress HEENT: PERRL/EOMI, Other (LEFT PERIORBITAL EDEMA, NO BRUISING. PT WITH HEALING , VERY LARGE SKIN DEFECT TO LEFT FOREHEAD/SIKHISM FROM RECENT SKIN CANCER REMOVAL --NO BLEEDING OR SIGNS OF INFECTION. VERY LARGE FRESH SURGICAL DEFECT TO RIGHT EAR AND PREAURICULAR AREA. DRESSING WITH MODERATE AMOUNT OF BLOOD. WOUND BASE WITH MILD DIFFUSE OOZING OF BLOOD. 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 (ORACIO POSEY DO) Progress/Results/Core Measures Results/Orders Vital Signs/I&O Vital Sign - Last 12Hours 12/16/16 12/16/16 19:25 20:56 Temp 98.2 98.2 Pulse 71 71 Resp 16 16 B/P (MAP) 195/97 Pulse Ox 95 95 O2 Delivery Room Air (ORACIO POSEY DO) Blood Pressure Mean: 129 Departure Communication Progress Notes 1940--PAGING DR. RILEY 1948--SPOKE WITH DR. RILEY. SHE OK'S REMOVAL OF SURGICAL DRESSING, APPLICATION OF ANY HEMOSTATIC AGENT ( SURGICEL NU-SKIN OR GELFOAM ) AND APPLICATION OF THICK COMPRESSION BANDAGE. (ORACIO POSEY DO) Impression Impression: Primary Impression: Post-op bleeding Disposition: HOME, SELF-CARE Condition: Improved Departure-Patient Inst. Referrals: HUGO ALEXIS MD (PCP/Family) Primary Care Physician Patient Instructions: POST OP BLEEDING Add. Discharge Instructions: FOLLOW ALL POST OP INSTRUCTIONS FROM YOUR SURGEON APPLY PRESSURE, ADDITIONAL BANDAGES, THEN APPLY ICE TO AREA AT 20 MINUTE INTERVALS IF AREA STARTS TO BLEED AGAIN RETURN TO ER IF BLEEDING DOES NOT STOP AFTER AN HOUR FOLLOW UP WITH YOUR SURGEON SCHEDULED, OR SOONER IF SYMPTOMS CONTINUE All discharge instructions reviewed with patient and/or family. Voiced understanding. Images Head/Face Progress SEE ADDITIONAL PAPER DIAGRAMS FOR IMAGES (ORACIO POSEY DO) BRANDON ELKINS Dec 16, 2016 20:30 ORACIO POSEY DO Dec 16, 2016 20:45
[2016-12-16 20:56] VITALS: BP 195/97
== END 2016-12-16 20:56 | disposition home or self-care (01) ==
LOC: EDUNIT# 19:22 → ER 19:24
DX: L76.21 Postprocedural hemorrhage of skin and subcutaneous tissue following a dermatologic procedure (principal); I10 Essential (primary) hypertension; E11.9 Type 2 diabetes mellitus without complications; Z79.4 Long term (current) use of insulin; Z79.899 Other long term (current) drug therapy; Z79.84 Long term (current) use of oral hypoglycemic drugs
CPT/HCPCS: 99282

== ENCOUNTER → 2016-12-23 | Outpatient (CLI) | payer MEDICARE ==
--- NOTE | 2016-12-23 14:22 | Diagnostic Imaging Report ---
EXAMINATION: PET-CT TECHNIQUE: Serum glucose level at the time of the study is: 188 mg/dL. 13.6 mCi of FDG was administered intravenously followed by obtaining PET images with corresponding noncontrast CT scan images. The CT scan was performed for anatomic correlation and attenuation correction and was not performed according to the diagnostic protocol of the areas covered. The scan was performed from the head to mid thighs. INDICATION: Basal cell carcinoma of the right ear. FINDINGS: The brain demonstrate symmetric FDG uptake. There is mild focus of increased uptake seen involving the subcutaneous tissue anterior to the right external auditory canal with a maximum SUV of 4.6. This corresponds to nonspecific soft tissue thickening seen along the region with minimal FDG uptake and soft tissue thickening seen around the right ear pinna region in general. This might relate to recent biopsy with or without remaining local disease. There is no hypermetabolic enlarged lymph node seen in the neck. In the chest there is FDG uptake with maximum SUV of 2.8 seen in the right supraclavicular region. This appears to correlate with a supraclavicular lymph node in a relatively lateral position on the right side with short axis measurement of one CM. No significant hypermetabolic mass is seen in the chest otherwise. Abdomen and pelvis: There is expected urinary tract excretion seen. There is a hypermetabolic lesion with maximum SUV of 6.5 seen in the right sided aspect of the sacrum. This does not have a obvious correlating lytic or blastic lesion on the correlating CT scan. It is located along the undersurface of the first sacral foramen on the right side. Nonfocal generally mild to moderate FDG uptake in the colon and small bowel is seen likely physiologic or inflammatory. There is diverticulosis of the sigmoid colon seen. No diverticulitis. CT findings also include nonobstructive kidney stones in the upper and lower poles of right kidney, the larger stone is at the upper pole measuring 9 mm. IMPRESSION: 1. Mild soft tissue thickening and increased FDG uptake around the right ear may relate to a recent procedure and possible remnants of the primary tumor. 2. Minimal increase of the FDG uptake in a borderline sized right supraclavicular lymph node, favored to be reactive. Followup studies recommended. 3. Moderate hypermetabolism in the right side of the sacrum concerning for underlying metastasis. Further evaluation with enhanced MRI of the sacrum is recommended. Dictated by: Dictated on workstation # [id number]
== END ==
LOC: RAD 07:49
PROVIDERS: ATTEND Plastic Surgery
DX: C44.212 Basal cell carcinoma of skin of right ear and external auricular canal (principal)

== ENCOUNTER → 2017-01-13 | Outpatient (CLI) | payer MEDICARE ==
[~2017-01-13] VITALS: Ht 172.7 cm; Wt 96.6 kg
[~2017-01-13] MED LIST changes: +LIDOCAINE 1% INJ 20 ML (XYLOCAINE) VIAL INJ ONE; +LIDOCAINE 1% INJ 20 ML (XYLOCAINE) VIAL ONE
--- NOTE | 2017-01-13 11:47 | Diagnostic Imaging Report ---
Ultrasound of the right supraclavicular region. INDICATION: Hypermetabolic lymph node seen on PET/CT. FINDINGS: There is a 1.6-cm lymph node seen inferior to the right clavicle compatible with a deep axillary lymph node. This appears to correlate with the hypermetabolic node seen on PET/CT. IMPRESSION: A 1.6-cm lymph node in the subclavicular region laterally on the right side represents a deep axillary lymph node. This is amenable for ultrasound-guided biopsy if needed. Dictated by: Dictated on workstation # [id number]
[2017-01-13 12:04] VITALS: BP 128/72
[2017-01-13 12:33] VITALS: BP 124/74
--- NOTE | 2017-01-13 18:12 | Diagnostic Imaging Report ---
EXAMINATION: US-guided core biopsy-chest. INDICATION: Right infraclavicular lymph node. Current history and physical and other medical records are reviewed prior to the procedure. CONSENT: Informed consent was obtained from the patient. The risks, benefits, potential complications and alternatives were reviewed and all questions answered to the patient's satisfaction. The patient's vital signs, cardiac rhythm, and pulse oximetry with observed throughout the procedure by qualified nursing personnel. Sedation/medications: none. FINDINGS: Lateral right infraclavicular (anterior deep axillary) lymph node. PROCEDURE: After maximal sterile barrier technique preparation and draping, 1% lidocaine was utilized for local anesthesia. With the patient in supine position, and via anterior approach, a 19-gauge guide needle is introduced into the right subclavicular lymph node under live ultrasound guidance. After confirming adequate positioning with saved ultrasound images, multiple 20 gauge core biopsy specimens were obtained. The patient tolerated the procedure well with no immediate complications. IMPRESSION: Successful US-guided core biopsy of right infraclavicular lymph node. Dictated by: Dictated on workstation # [id number]
== END ==
LOC: RAD 09:54
PROVIDERS: ATTEND Otolaryngology Otolaryngology/Facial Plastic Surgery
DX: D49.89 Neoplasm of unspecified behavior of other specified sites (principal)
CPT/HCPCS: 76942; 76999

== ENCOUNTER → 2018-02-18 | Outpatient (CLI) | payer MEDICARE, OTHER ==
[~2018-02-18] MED LIST changes: +ACHD5005 PO; -HYDR-3812 PO; -LIDOCAINE 1% INJ 20 ML (XYLOCAINE) VIAL INJ ONE; -LIDOCAINE 1% INJ 20 ML (XYLOCAINE) VIAL ONE; -METF500T4 PO; +METF500T5 PO
--- NOTE | 2018-02-18 13:25 | Diagnostic Imaging Report ---
INDICATION: Pain in the left axilla. COMPARISON: Correlation is made with outside mammograms from 11/13/2017 and 11/06/2015. TECHNIQUE: Unilateral left 2D and 3D diagnostic mammography was performed. FINDINGS: Scattered fibroglandular densities are noted. There are multiple prominent lymph nodes in the left axilla which appear to be increased since the mammogram from 11/06/2015. An ovoid density in the lateral anterior left breast appears stable and mostly benign. No spiculated mass is seen. No suspicious calcifications are identified. IMPRESSION: Multiple prominent lymph nodes in the left axilla are noted, increased since the study dating back to 2015. Sonographic interrogation of the left axilla is recommended. In addition, sonographic interrogation of the area of pain near the patient's chest wall in the upper outer left breast is also recommended. ACR BI-RADS Category 0: Incomplete. (Needs additional imaging evaluation). Result letter will be mailed to the patient. Note: At least 10% of breast cancer is not imaged by mammography. Dictated by: Dictated on workstation # [id number]
--- NOTE | 2018-02-18 14:47 | Diagnostic Imaging Report ---
INDICATION: Palpable fullness in the left upper chest as well as multiple enlarged lymph nodes in the left axilla seen on the diagnostic study. This ultrasound is performed for further evaluation. COMPARISON: Correlation is made with the diagnostic mammography from earlier this same day. FINDINGS: Sonographic interrogation of the area of fullness in the left upper chest and left axilla was performed. This appears to represent multiple enlarged lymph nodes accounting for the fullness in the left upper chest as well as the left axilla. The largest node is approximately 3.4 x 1.8 x 2.5 cm. No fluid collections are seen. IMPRESSION: There are numerous large lymph nodes at the area of palpable fullness in the left upper chest as well as the left axilla. These appear to be pathologic. Tissue sampling is recommended. These lymph nodes would be amenable to ultrasound-guided core biopsy. ACR BI-RADS Category 4: Suspicious abnormality. Dictated by: Dictated on workstation # [id number]
== END ==
LOC: RAD 12:41
PROVIDERS: ATTEND Family Medicine
DX: R59.0 Localized enlarged lymph nodes (principal)
CPT/HCPCS: 76642

== ENCOUNTER → 2018-02-25 | Outpatient (CLI) | payer MEDICARE, OTHER ==
[~2018-02-25] VITALS: Ht 172.7 cm; Wt 96.6 kg
[~2018-02-25] MED LIST changes: +HYDR25TA4 PO; +INSU100I29 SQ; +LEVO75TA6 PO; +LIDOCAINE 1% INJ 20 ML 20 ML VIAL INJ ONE; +LORA10TA7 PO; +OMEP20TA7 PO; +SAXA5TAB PO
[2018-02-25 13:30] VITALS: BP 118/74
[2018-02-25 14:05] VITALS: BP 121/74
--- NOTE | 2018-02-25 18:19 | Diagnostic Imaging Report ---
INDICATION: Multiple enlarged left axillary lymph nodes and left upper chest lymph nodes. Patient presents for ultrasound-guided biopsy. Patient was brought to the procedure room, placed on the table in the supine position. Ultrasound imaging over the left axilla was performed to evaluate appropriate entry site. The skin of the left axilla was prepped and draped in usual sterile fashion. A small amount of 1% lidocaine was utilized for local anesthesia. A total of 4 core biopsies were made through an enlarged node in the left axilla. A localizer clip was then deployed. Hemostasis was obtained using manual compression. Patient tolerated the procedure well. IMPRESSION: Successful ultrasound-guided core biopsy of an enlarged left axillary lymph node, as described. Pathology results are currently pending. Dictated by: Dictated on workstation # [id number]
== END ==
LOC: RAD 12:48
PROVIDERS: ATTEND Nurse Practitioner Family
DX: C85.14 Unspecified B-cell lymphoma, lymph nodes of axilla and upper limb (principal); C82.14 Follicular lymphoma grade II, lymph nodes of axilla and upper limb
CPT/HCPCS: 19083; 88184; 88185; 88305; 88341; 88342

== ENCOUNTER 2018-03-05 13:33 | Outpatient (RCR) | payer MEDICARE, OTHER ==
[~2018-03-05 13:33] MED LIST changes: -HYDR25TA4 PO; -INSU100I29 SQ; -LEVO75TA6 PO; -LIDOCAINE 1% INJ 20 ML 20 ML VIAL INJ ONE; -LORA10TA7 PO; -OMEP20TA7 PO; -SAXA5TAB PO
[2018-03-09] MEDS ORDERED: INSU100I29 SQ (14:38)
[2018-03-09] MEDS ORDERED: OMEP20TA7 PO (14:38)
[2018-03-09] MEDS ORDERED: LORA10TA7 PO (14:38)
[2018-03-09] MEDS ORDERED: HYDR25TA4 PO (14:38)
[2018-03-09] MEDS ORDERED: LEVO75TA6 PO (14:38)
[2018-03-09] MEDS ORDERED: SAXA5TAB PO (14:38)
[2018-03-10] MEDS ORDERED: ACHD5005 PO (13:21)
== END 2018-03-26 10:19 | disposition home or self-care (01) ==
LOC: ONC 13:33
PROVIDERS: ATTEND Internal Medicine Hematology & Oncology
DX: C82.98 Follicular lymphoma, unspecified, lymph nodes of multiple sites (principal); E11.9 Type 2 diabetes mellitus without complications; I10 Essential (primary) hypertension; E78.5 Hyperlipidemia, unspecified; E03.9 Hypothyroidism, unspecified; K21.9 Gastro-esophageal reflux disease without esophagitis; M19.91 Primary osteoarthritis, unspecified site; I73.9 Peripheral vascular disease, unspecified; E66.9 Obesity, unspecified; Z68.31 Body mass index [BMI] 31.0-31.9, adult; Z79.4 Long term (current) use of insulin; Z79.899 Other long term (current) drug therapy
CPT/HCPCS: 99214

== ENCOUNTER 2018-03-09 12:21 | Outpatient (CLI) | payer MEDICARE, OTHER ==
[~2018-03-09] VITALS: Ht 172.7 cm; Wt 96.6 kg
[~2018-03-09 12:21] MED LIST changes: -DEXAMETHASONE 10 MG/ML (DECADRON) 1 ML VIAL ONE; -HURRICAINE EXT TUBE (BENZOCAINE) ONE; -HYDR25TA4 PO; -INSU100I29 SQ; -LACTATED RINGERS 1,000 ML IV ONE; -LEVO75TA6 PO; -LIDOCAINE PF 2% 5 ML (XYLOCAINE) VIAL ONE; -LORA10TA7 PO; -MIDAZOLAM 2 MG/2 ML (VERSED) VIAL ONE; -OMEP20TA7 PO; -SAXA5TAB PO; -SEVOFLURANE (ULTANE) 15 ML INHAL SOLN ONE; -fentaNYL INJECTION 100 MCG/2 ML AMP ONE; -proPOfol 200 MG/20 ML (DIPRIVAN) VIAL IV ONE
[2018-03-09] MEDS ORDERED: HYDR25TA4 PO (14:38)
[2018-03-09] MEDS ORDERED: LEVO75TA6 PO (14:38)
[2018-03-09] MEDS ORDERED: SAXA5TAB PO (14:38)
[2018-03-09] MEDS ORDERED: INSU100I29 SQ (14:38)
[2018-03-09] MEDS ORDERED: OMEP20TA7 PO (14:38)
[2018-03-09] MEDS ORDERED: LORA10TA7 PO (14:38)
[2018-03-10] MEDS ORDERED: ACHD5005 PO (13:21)
== END 2018-03-09 14:50 | disposition home or self-care (01) ==
LOC: PREOP 12:21
PROVIDERS: ATTEND Surgery
DX: Z01.818 Encounter for other preprocedural examination (principal)

== ENCOUNTER → 2018-03-09 | Outpatient (CLI) | payer MEDICARE, OTHER ==
[~2018-03-09] MED LIST changes: +DEXAMETHASONE 10 MG/ML (DECADRON) 1 ML VIAL ONE; +HURRICAINE EXT TUBE (BENZOCAINE) ONE; +HYDR25TA4 PO; +INSU100I29 SQ; +LACTATED RINGERS 1,000 ML IV ONE; +LEVO75TA6 PO; +LIDOCAINE PF 2% 5 ML (XYLOCAINE) VIAL ONE; +LORA10TA7 PO; +MIDAZOLAM 2 MG/2 ML (VERSED) VIAL ONE; +OMEP20TA7 PO; +SAXA5TAB PO; +SEVOFLURANE (ULTANE) 15 ML INHAL SOLN ONE; +fentaNYL INJECTION 100 MCG/2 ML AMP ONE; +proPOfol 200 MG/20 ML (DIPRIVAN) VIAL IV ONE
--- NOTE | 2018-03-09 15:01 | Diagnostic Imaging Report ---
INDICATION: Follicular lymphoma. This study is performed for initial staging. TECHNIQUE: Serum blood glucose level at the time of injection is 115 mg/dL. The patient was administered 12.7 mCi F-18 FDG intravenously administered in the right antecubital location. PET imaging was performed from the top of skull to mid thighs. Noncontrast CT was also performed for attenuation correction and anatomic correlation. COMPARISON: Comparison is made with prior PET/CT from 12/23/2016. FINDINGS: Symmetric activity within the brain is identified. Hypermetabolic nodes in the neck are identified, greatest on the right. A dominant mass on the right is just lateral to the right submandibular gland measuring 2.6 x 1.7 cm. This demonstrates SUV max of 12.5. Additional hypermetabolic submandibular nodes are seen bilaterally. There are hypermetabolic lymph nodes in the posterior cervical chain bilaterally as well. Hypermetabolic right supraclavicular node measures 1.2 x 0.7 cm with SUV max of 5.8. Marked bilateral axillary lymphadenopathy is noted which shows significant hypermetabolism. Numerous lymph nodes demonstrate an SUV max of 10 or greater. Hypermetabolic nodes more inferiorly along the right and left chest rivera are seen, largest is on the left demonstrating an SUV max of approximately 11. This node measures 2.2 cm in diameter. No pulmonary parenchymal hypermetabolism is seen. There are hypermetabolic mediastinal lymph nodes present. Superior mediastinal at the level of the great vessels lymph node demonstrates SUV max 6.4. This lymph node measures 1.3 cm. There are right paratracheal and AP window nodes present as well. No hypermetabolic hilar adenopathy is seen. There is some low-level activity in the subcarinal region. Imaging through the abdomen does show hypermetabolic node near the celiac axis measuring 2.5 cm in diameter. The SUV max is approximately 8. Bulky hypermetabolism more inferiorly is seen at the level of the aortic bifurcation. Large hypermetabolic masses are identified along the left common iliac chain as well as the right iliac chain extending inferiorly into the external iliac and obturator regions. A karrie mass at the aortic bifurcation measures 4.2 x 3.7 cm. More inferiorly, karrie mass on the left measures 6.3 x 3.0 cm. Karrie mass in the right external iliac region measures 3.6 x 3.9 cm. All of these regions demonstrate intense hypermetabolism. There are hypermetabolic bilateral inguinal lymph nodes as well. IMPRESSION: Hypermetabolic lymphadenopathy in the cervical regions bilaterally, right supraclavicular and bilateral axillary regions. There is hypermetabolic lymph nodes in the mediastinum as well as in the central retroperitoneum and bilateral iliac and obturator regions as well as the bilateral inguinal regions consistent with patient's diagnosis of lymphoma. Dictated by: Dictated on workstation # [id number]
== END ==
LOC: RAD 09:59
PROVIDERS: ATTEND Internal Medicine Hematology & Oncology
DX: C82.91 Follicular lymphoma, unspecified, lymph nodes of head, face, and neck (principal)

== ENCOUNTER 2018-03-10 09:36 | Day surgery (SDC) | payer MEDICARE, OTHER ==
[~2018-03-10] VITALS: Ht 172.7 cm; Wt 96.6 kg
[~2018-03-10 09:36] MED LIST changes: +HYDR25TA4 PO; +INSU100I29 SQ; +LEVO75TA6 PO; +LORA10TA7 PO; +OMEP20TA7 PO; +SAXA5TAB PO
--- OUTSIDE RECORDS SUMMARY | 2018-03-10 09:40 | XMS REPORT | Continuity of Care Document ---
Author Author [facility] Organization [facility] Address Unknown Phone Unavailable Allergies Active Description Code Type Severity Reaction Onset Reported/Identified Relationship to Patient Clinical Status Yes lisinopril lisinopril Drug Allergy Severe COUGH 08/10/2014 Yes Ullnrlx-Wbx-Pfm Reductase Inhibitor Qywjgxe-Mhi-Rbv Reductase Inhibitor Drug Allergy Severe MUSCLE ACHES 08/10/2014 Yes adhesive [id number] Drug Allergy Unknown N/A 10/30/2016 Yes lisinopril [id number] Drug Allergy Unknown COUGH 10/30/2016 Yes Axssrty-Wme-Sxw Reductase Inhibitor [id number] Drug Allergy Unknown MUSCLE PAIN 10/30/2016 Medications There is no data. 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 08/16/2013 LOWE DDS, KEYANNA Ot 250.00 DIAB STEPHANIE WO COMPL, TYPE II OR UNSPEC TY 08/16/2013 LOWE DDS, KEYANNA Ot 401.9 HYPERTENSION NOS 08/16/2013 LOWE DDS, KEYANNA Ot V58.69 [facility],CURRENT USE 08/07/2014 Ot 794.5 08/07/2014 Ot 250.00 08/07/2014 Ot 272.4 08/07/2014 Ot 401.9 08/07/2014 Ot 786.09 08/07/2014 LOWE DDS, KEYANNA Ot 173.31 08/07/2014 LOWE DDS, KEYANNA Ot V72.81 08/07/2014 LOWE DDS, KEYANNA Ot V74.8 08/15/2014 JEAN ORTEGA MD Ot V72.84 08/30/2014 JEAN ORTEGA MD Ot V72.84 09/25/2014 JEAN ORTEGA MD Ot V72.84 10/30/2016 Ot 250.00 DIAB STEPHANIE WO COMPL, TYPE II OR UNSPEC TY 10/30/2016 Ot 272.4 HYPERLIPIDEMIA NEC/NOS 10/30/2016 Ot 401.9 HYPERTENSION NOS 10/30/2016 Ot 786.09 RESPIRATORY ABNORM NEC 10/30/2016 LOWE DDS, KEYANNA Ot 173.31 BASAL CELL CARCINOMA OF SKIN OF [facility] 10/30/2016 LOWE DDS, KEYANNA Ot V72.81 WUOF-NWM-WISBNEUVL CARDIOVASCULAR 10/30/2016 LOWE DDS, KEYANNA Ot V74.8 SCREEN-BACTERIAL DIS NEC 10/30/2016 JEAN ORTEGA MD Ot V72.84 EXAM PRE-OPERATIVE NOS 10/30/2016 DAVID KEITA MD Ot E11.9 TYPE 2 DIABETES MELLITUS WITHOUT COMPLIC 10/30/2016 DAVID KEITA MD Ot L98.9 DISORDER OF THE SKIN AND SUBCUTANEOUS TI 10/30/2016 DAVID KEITA MD Ot Z01.812 ENCOUNTER FOR PREPROCEDURAL LABORATORY E 10/30/2016 DAVID KEITA MD Ot Z01.818 ENCOUNTER FOR OTHER PREPROCEDURAL EXAMIN 10/30/2016 DAVID KEITA MD Ot Z11.2 ENCOUNTER FOR SCREENING FOR OTHER BACTER 10/31/2016 DAVID KEITA MD Ot E11.9 TYPE 2 DIABETES MELLITUS WITHOUT COMPLIC 10/31/2016 DAVID KEITA MD, Ot L98.9 DISORDER OF THE SKIN AND SUBCUTANEOUS TI 10/31/2016 DAVID KEITA MD Ot Z01.812 ENCOUNTER FOR PREPROCEDURAL LABORATORY E 10/31/2016 DAVID KEITA MD Ot Z01.818 ENCOUNTER FOR OTHER PREPROCEDURAL EXAMIN 10/31/2016 DAVID KEITA MD Ot Z11.2 ENCOUNTER FOR SCREENING FOR OTHER BACTER 11/01/2016 DAVID KEITA MD, Ot E11.9 TYPE 2 DIABETES MELLITUS WITHOUT COMPLIC 11/01/2016 DAVID KEITA MD, Ot L98.9 DISORDER OF THE SKIN AND SUBCUTANEOUS TI 11/01/2016 DAVID KEITA MD Ot Z01.812 ENCOUNTER FOR PREPROCEDURAL LABORATORY E 11/01/2016 DAVID KEITA MD Ot Z01.818 ENCOUNTER FOR OTHER PREPROCEDURAL EXAMIN 11/01/2016 DAVID KEITA MD Ot Z11.2 ENCOUNTER FOR SCREENING FOR OTHER BACTER 11/07/2016 DAVID KEITA MD Ot C44.212 BASAL CELL CARCINOMA SKIN/ R EAR AND EXT 11/07/2016 DAVID KEITA MD Ot C44.310 BASAL CELL CARCINOMA OF SKIN OF UNSPECIF 11/07/2016 DAVID KEITA MD Ot E11.9 TYPE 2 DIABETES MELLITUS WITHOUT COMPLIC 11/10/2016 DAVID KEITA MD Ot C44.212 BASAL CELL CARCINOMA SKIN/ R EAR AND EXT 11/10/2016 DAVID KEITA MD Ot C44.310 BASAL CELL CARCINOMA OF SKIN OF UNSPECIF 11/10/2016 DAVID KEITA MD Ot E11.9 TYPE 2 DIABETES MELLITUS WITHOUT COMPLIC 12/16/2016 JAZ CURRAN ORACIO K Ot E11.9 TYPE 2 DIABETES MELLITUS WITHOUT COMPLIC 12/16/2016 JAZPaige CURRAN ORACIO K Ot I10 ESSENTIAL (PRIMARY) HYPERTENSION 12/16/2016 JAZ CURRAN ORACIO K Ot L76.21 POSTPROC HEMOR OF SKIN, SUBCU FOL A DERM 12/16/2016 JAZ CURRAN ORACIO K Ot Z79.4 HELICOPTER DISPATCHER (CURRENT) USE OF INSULIN 12/16/2016 JAZ CURRAN ORACIO K Ot Z79.84 PRISON (CURRENT) USE OF ORAL HYPOGLYC 12/16/2016 JAZ CURRAN ORACIO K Ot Z79.899 OTHER HELICOPTER DISPATCHER (CURRENT) DRUG THERAPY 12/17/2016 JAZ DO, ORACIO K Ot E11.9 TYPE 2 DIABETES MELLITUS WITHOUT COMPLIC 12/17/2016 JAZ DO, ORACIO K Ot I10 ESSENTIAL (PRIMARY) HYPERTENSION 12/17/2016 JAZ DO, ORACIO K Ot L76.21 POSTPROC HEMOR OF SKIN, SUBCU FOL A DERM 12/17/2016 JAZ DO, ORACIO K Ot Z79.4 PRISON (CURRENT) USE OF INSULIN 12/17/2016 JAZ DO, ORACIO K Ot Z79.84 PRISON (CURRENT) USE OF ORAL HYPOGLYC 12/17/2016 JAZ DO, ORACIO K Ot Z79.899 OTHER HELICOPTER DISPATCHER (CURRENT) DRUG THERAPY 12/18/2016 JAZ DO, ORACIO K Ot E11.9 TYPE 2 DIABETES MELLITUS WITHOUT COMPLIC 12/18/2016 JAZ DO, ORACIO K Ot I10 ESSENTIAL (PRIMARY) HYPERTENSION 12/18/2016 JAZ DO, ORACIO K Ot L76.21 POSTPROC HEMOR OF SKIN, SUBCU FOL A DERM 12/18/2016 JAZ DO, ORACIO K Ot Z79.4 HELICOPTER DISPATCHER (CURRENT) USE OF INSULIN 12/18/2016 JAZ DO, ORACIO K Ot Z79.84 PRISON (CURRENT) USE OF ORAL HYPOGLYC 12/18/2016 JAZ DO, ORACIO K Ot Z79.899 OTHER PRISON (CURRENT) DRUG THERAPY 12/22/2016 JAZ DO, ORACIO K Ot E11.9 TYPE 2 DIABETES MELLITUS WITHOUT COMPLIC 12/22/2016 JAZ DO, ORACIO K Ot I10 ESSENTIAL (PRIMARY) HYPERTENSION 12/22/2016 JAZ DO, ORACIO K Ot L76.21 POSTPROC HEMOR OF SKIN, SUBCU FOL A DERM 12/22/2016 JAZ DO, ORACIO K Ot Z79.4 HELICOPTER DISPATCHER (CURRENT) USE OF INSULIN 12/22/2016 JAZ DO, ORACIO K Ot Z79.84 HELICOPTER DISPATCHER (CURRENT) USE OF ORAL HYPOGLYC 12/22/2016 JAZ DO, ORACIO K Ot Z79.899 OTHER HELICOPTER DISPATCHER (CURRENT) DRUG THERAPY 12/23/2016 PETE SOFIA MD, Ot 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 12/24/2016 BORTNICK MD, PETE P Ot 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 01/08/2017 PETE SOFIA MD Ot C44.212 BASAL CELL CARCINOMA SKIN/ R EAR AND EXT 01/19/2017 DAVID KEITA MD Ot 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 01/21/2017 DAVID KEITA MD Ot 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 01/22/2017 DAVID KEITA MD Ot 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 02/03/2017 PETE SOFIA MD, Ot C44.212 BASAL CELL CARCINOMA SKIN/ R EAR AND EXT 02/05/2017 DAVID KEITA MD Ot 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 02/09/2017 PETE SOFIA MD, Ot C44.212 BASAL CELL CARCINOMA SKIN/ R EAR AND EXT 02/11/2017 DAVID KEITA MD Ot 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 02/11/2018 REUBEN HEWITT, HUGO Quiñonez Ot N63.21 UNSPECIFIED LUMP IN THE LEFT BREAST, UPP 02/11/2018 HUGO ALEXIS MD A Ot N63.21 UNSPECIFIED LUMP IN THE LEFT BREAST, UPP 02/11/2018 REUBEN HEWITT, HUGO Quiñonez Ot N63.21 UNSPECIFIED LUMP IN THE LEFT BREAST, UPP 02/19/2018 REUBEN HEWITT, HUGO A Ot R59.0 LOCALIZED ENLARGED LYMPH NODES 02/22/2018 GUADENCIO MCKEON POLICY WRITER Ot R59.0 LOCALIZED ENLARGED LYMPH NODES 02/25/2018 GAUDENCIO MCKEON POLICY WRITER Ot R59.0 LOCALIZED ENLARGED LYMPH NODES 03/02/2018 EDWIN DDS, KEYANNA Ot 173.31 BASAL CELL CARCINOMA OF SKIN OF OTH UN 03/02/2018 LUIS AE DDS, KEYANNA Ot V72.81 QWYM-XYT-HVPMDJJKX CARDIOVASCULAR 03/02/2018 EDWIN DDS, KEYANNA Ot V74.8 SCREEN-BACTERIAL DIS NEC 03/02/2018 JORDAN HEWITT, JEAN Veliz Ot V72.84 EXAM PRE-OPERATIVE NOS 03/02/2018 PETE SOFIA MD Ot C44.212 BASAL CELL CARCINOMA SKIN/ R EAR AND EXT 03/02/2018 DAVID KEITA MD Ot 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 03/02/2018 REUBEN HEWITT, HUGO Quiñonez Ot R59.0 LOCALIZED ENLARGED LYMPH NODES 03/02/2018 LINDA GAUDENCIO M ARNP Ot R59.0 LOCALIZED ENLARGED LYMPH NODES 03/04/2018 MCKEONJASSJALIL Matson POLICY WRITER Ot 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, NODES OF A 03/04/2018 GAUDENCIO MCKEON POLICY WRITER Ot 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, LYMPH NODES OF AXI 03/06/2018 MCKEONGAUDENCIO Huyen POLICY WRITER Ot 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, NODES OF A 03/06/2018 GAUDENCIO MCKEON POLICY WRITER Ot 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, LYMPH NODES OF AXI 03/08/2018 LOWE DDS, KEYANNA Ot 173.31 BASAL CELL CARCINOMA OF SKIN OF OTH UN 03/08/2018 LOWE DDS, KEYANNA Ot V72.81 WMNP-QZE-TUIQGJEJJ CARDIOVASCULAR 03/08/2018 LOWE DDS, KEYANNA Ot V74.8 SCREEN-BACTERIAL DIS NEC 03/08/2018 JEAN ORTEGA MD Ot V72.84 EXAM PRE-OPERATIVE NOS 03/08/2018 BISMARK HEWITT, PETE P Ot C44.212 BASAL CELL CARCINOMA SKIN/ R EAR AND EXT 03/08/2018 BOSSMAN HEWITT, DAVID P Ot 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 03/08/2018 REUBEN HEWITT, HUGO Quiñonez Ot R59.0 LOCALIZED ENLARGED LYMPH NODES 03/08/2018 DAVID MCKEONHANJALIL SOUSA Ot 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, NODES OF A 03/08/2018 LINADJASSJALIL SOUSA Ot 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, LYMPH NODES OF AXI Procedures Code Description Performed By Performed On 65.63 LAPAROSCOP REMOVE OVARIES/ TUBES Jean Ortega MD 08/11/2014 70.78 VAGINAL SUSPENSION AND FIXATION WITH GRAFT OR PROS Jean Ortega MD 08/11/2014 <section xmlns="urn:hl7-org:v3" xmlns:xsi="http://www.w3.org/2001/ XMLSchema-instance"> <templateId root="[id number]" /> < templateId root="[id number]" /> <code codeSystemName= "MARQUIS" codeSystem="[id number]" code="46333-8" displayName="Results" /> <title>Results</title> <text> <table> <thead> <tr> <th>Test</th> <th>Result</th> <th>Range</th> </tr> </thead> <tbody> <tr> <th colspan="10">CBC - 08/11/14 13: 29</th> </tr> <tr> <td>MEAN CELL HGB</td> <td> 27.5 pg</td> <td>27.0-33.0</td> </tr> <tr> <td> MEAN CELL HGB CONCENTRATION</td> <td>31.6 g/dL</td> <td>32.0- 37.0</td> </tr> <tr> <td>MEAN CELL VOLUME</td> < td>86.8 fl</td> <td>80.0-100.0</td> </tr> <tr> < td>RED BLOOD CELL</td> <td>4.33 m/cumm</td> <td>4.00-6.00</td > </tr> <tr> <td>RED CELL DISTRIBUTION WIDTH</td> <td>13.8 %</td> <td>11.0-15.6</td> </tr> <tr> <td>WHITE BLOOD CELL</td> <td>4.0 k/cumm</td> <td>5.0- 10.0</td> </tr> <tr> <td>HEMOGLOBIN</td> <td> 11.9 gm/dL</td> <td>12.0-16.0</td> </tr> <tr> < td>HEMATOCRIT</td> <td>37.6 %</td> <td>37.0-47.0</td> </tr> <tr> <td>PLATELET COUNT</td> <td>145 k/cumm</ td> <td>150-400</td> </tr> <tr> <th colspan="10 ">MRSA SURVEILLANCE SCREEN - 08/11/14 13:29</th> </tr> <tr> <td>Microbiology</td> <td> </td> <td /> </tr> <tr> <th colspan="10">METABOLIC PANEL, BASIC - 08/11/14 13:30</th> </tr> <tr> <td>POTASSIUM</td> <td>4.0 mmol/L</td > <td>3.5-5.3</td> </tr> <tr> <td>EST GFR (MDRD) </td> <td>> 60 mL/min</td> <td>> 59</td> </tr> <tr> <td>ANION GAP</td> <td>7 mmol/L</td> <td>5 -15</td> </tr> <tr> <td>EST CrCl (CG)</td> <td>& gt; 60 mL/min</td> <td>> 59</td> </tr> <tr> < td>GLUCOSE</td> <td>115 mg/dL</td> <td>70-99</td> </tr > <tr> <td>CALCIUM</td> <td>9.7 mg/dL</td> <td >8.5-10.1</td> </tr> <tr> <td>BLOOD UREA NITROGEN</td> <td>26 mg/dL</td> <td>7-20</td> </tr> <tr> <td>CREATININE</td> <td>0.8 mg/dL</td> <td>0.6-1.0</td> </tr> <tr> <td>SODIUM</td> <td>144 mmol/L</td> <td>135-148</td> </tr> <tr> <td>CHLORIDE</td> <td>107 mmol/L</td> <td>98-110</td> </tr> <tr> <td>CARBON DIOXIDE</td> <td>30 mmol/L</td> <td>21-32</ td> </tr> <tr> <th colspan="10">GLUCOSE (POC) - 08/11/14 13:56</th> </tr> <tr> <td>GLUCOSE (POC)</td> <td >107 mg/dL</td> <td>70-99</td> </tr> <tr> <th colspan="10">GLUCOSE (POC) - 08/11/14 20:55</th> </tr> <tr> <td>GLUCOSE (POC)</td> <td>163 mg/dL</td> <td>70-99</td> </tr> <tr> < colspan="10">HGB HCT - 08/11/14 22:20</ th> </tr> <tr> <td>MEAN CELL VOLUME</td> <td> 84.5 fl</td> <td>80.0-100.0</td> </tr> <tr> <td> HEMOGLOBIN</td> <td>12.1 gm/dL</td> <td>12.0-16.0</td> </tr> <tr> <td>HEMATOCRIT</td> <td>36.0 %</td> <td>37.0-47.0</td> </tr> <tr> <th colspan="10">CBC - 08/12/14 05:22</th> </tr> <tr> <td>MEAN CELL HGB</td> <td>27.6 pg</td> <td>27.0-33.0</td> </tr> <tr> <td>MEAN CELL HGB CONCENTRATION</td> <td>32.4 g/dL</td> <td>32.0-37.0</td> </tr> <tr> <td>MEAN CELL VOLUME</ td> <td>85.2 fl</td> <td>80.0-100.0</td> </tr> < tr> <td>RED BLOOD CELL</td> <td>4.20 m/cumm</td> <td> 4.00-6.00</td> </tr> <tr> <td>RED CELL DISTRIBUTION WIDTH </td> <td>13.7 %</td> <td>11.0-15.6</td> </tr> <tr> <td>WHITE BLOOD CELL</td> <td>7.1 k/cumm</td> <td>5.0-10.0</td> </tr> <tr> <td>HEMOGLOBIN</td> <td>11.6 gm/dL</td> <td>12.0-16.0</td> </tr> <tr> <td>HEMATOCRIT</td> <td>35.8 %</td> <td>37.0-47.0< /td> </tr> <tr> <td>PLATELET COUNT</td> <td>124 k/cumm</td> <td>150-400</td> </tr> <tr> <th colspan="10">GLUCOSE (POC) - 08/12/14 06:38</th> </tr> <tr> <td>GLUCOSE (POC)</td> <td>155 mg/dL</td> <td>70-99</td> </tr> <tr> <th colspan="10">GLUCOSE (POC) - 08/12/14 10: 52</th> </tr> <tr> <td>GLUCOSE (POC)</td> <td> 196 mg/dL</td> <td>70-99</td> </tr> <tr> <th colspan="10">Complete blood count (CBC) with automated white blood cell (WBC) differential - 10/30/16 13:10</th> </tr> <tr> <td>Blood leukocytes automated count (number/volume)</td> <td>5.2 10*3/uL</td> <td>4.3-11.0</td> </tr> <tr> <td>Blood erythrocytes automated count (number/volume)</td> <td>4.60 10*6/uL</td > <td>4.35-5.85</td> </tr> <tr> <td>Venous blood hemoglobin measurement (mass/volume)</td> <td>12.8 g/dL</td> <td>11.5-16.0</td> </tr> <tr> <td>Blood hematocrit (volume fraction)</td> <td>39 %</td> <td>35-52</td> </tr> <tr> <td>Automated erythrocyte mean corpuscular volume</ td> <td>84 [foz_us]</td> <td>80-99</td> </tr> < tr> <td>Automated erythrocyte mean corpuscular hemoglobin (mass per erythrocyte)</td> <td>28 pg</td> <td>25-34</td> </tr> <tr> <td>Automated erythrocyte mean corpuscular hemoglobin concentration measurement (mass/volume)</td> <td>33 g/dL</td> <td>32-36</td> </tr> <tr> <td>Automated erythrocyte distribution width ratio</td> <td>13.9 %</td> <td>10.0- 14.5</td> </tr> <tr> <td>Automated blood platelet count ( count/volume)</td> <td>156 10*3/uL</td> <td>130-400</td> </tr> <tr> <td>Automated blood platelet mean volume measurement</td> <td>10.9 [foz_us]</td> <td>7.4-10.4</td> </tr> <tr> <td>Automated blood neutrophils/100 leukocytes</ td> <td>67 %</td> <td>42-75</td> </tr> <tr> <td>Automated blood lymphocytes/100 leukocytes</td> <td>25 &# 37;</td> <td>12-44</td> </tr> <tr> <td>Blood monocytes/100 leukocytes</td> <td>6 %</td> <td>0-12</td> </tr> <tr> <td>Automated blood eosinophils/100 leukocytes </td> <td>2 %</td> <td>0-10</td> </tr> <tr> <td>Automated blood basophils/100 leukocytes</td> <td>0 % </td> <td>0-10</td> </tr> <tr> <td>Blood neutrophils automated count (number/volume)</td> <td>3.5 10*3</td> <td>1.8-7.8</td> </tr> <tr> <td>Blood lymphocytes automated count (number/volume)</td> <td>1.3 10*3</td> <td>1.0 -4.0</td> </tr> <tr> <td>Blood monocytes automated count (number/volume)</td> <td>0.3 10*3</td> <td>0.0-1.0</td> </tr> <tr> <td>Automated eosinophil count</td> <td> 0.1 10*3/uL</td> <td>0.0-0.3</td> </tr> <tr> <td >Automated blood basophil count (count/volume)</td> <td>0.0 10*3/uL</td > <td>0.0-0.1</td> </tr> <tr> <th colspan="10"> Comprehensive metabolic panel - 10/30/16 13:10</th> </tr> <tr> <td>Serum or plasma sodium measurement (moles/volume)</td> <td> 141 mmol/L</td> <td>135-145</td> </tr> <tr> <td> Serum or plasma potassium measurement (moles/volume)</td> <td>4.4 mmol/ L</td> <td>3.6-5.0</td> </tr> <tr> <td>Serum or plasma chloride measurement (moles/volume)</td> <td>108 mmol/L</td> <td>98-107</td> </tr> <tr> <td>Carbon dioxide</td > <td>24 mmol/L</td> <td>21-32</td> </tr> <tr> <td>Serum or plasma anion gap determination (moles/volume)</td> <td>9 mmol/L</td> <td>5-14</td> </tr> <tr> < td>Serum or plasma urea nitrogen measurement (mass/volume)</td> <td>23 mg/dL</td> <td>7-18</td> </tr> <tr> <td>Serum or plasma creatinine measurement (mass/volume)</td> <td>0.94 mg/dL</td > <td>0.60-1.30</td> </tr> <tr> <td>Serum or plasma urea nitrogen/creatinine mass ratio</td> <td>24 </td> < td>NRG</td> </tr> <tr> <td>Serum or plasma creatinine measurement with calculation of estimated glomerular filtration rate</td> <td>58 </td> <td>NRG</td> </tr> <tr> <td> Serum or plasma glucose measurement (mass/volume)</td> <td>194 mg/dL</ td> <td>70-105</td> </tr> <tr> <td>Serum or plasma calcium measurement (mass/volume)</td> <td>9.7 mg/dL</td> <td>8.5-10.1</td> </tr> <tr> <td>Serum or plasma total bilirubin measurement (mass/volume)</td> <td>0.6 mg/dL</td> <td>0.1-1.0</td> </tr> <tr> <td>Serum or plasma alkaline phosphatase measurement (enzymatic activity/volume)</td> <td> 67 U/L</td> <td>40-136</td> </tr> <tr> <td> Serum or plasma aspartate aminotransferase measurement (enzymatic activity/ volume)</td> <td>19 U/L</td> <td>5-34</td> </tr> <tr> <td>Serum or plasma alanine aminotransferase measurement ( enzymatic activity/volume)</td> <td>14 U/L</td> <td>0-55</td> </tr> <tr> <td>Serum or plasma protein measurement (mass /volume)</td> <td>6.7 g/dL</td> <td>6.4-8.2</td> </tr> <tr> <td>Serum or plasma albumin measurement (mass/volume)</td > <td>4.2 g/dL</td> <td>3.2-4.5</td> </tr> <tr> <th colspan="10">Methicillin resistant Staphylococcus aureus (MRSA) screening culture - 10/30/16 13:10</th> </tr> <tr> <td> Methicillin resistant Staphylococcus aureus (MRSA) screening culture</td> <td>NEG </td> <td>NRG</td> </tr> <tr> <th colspan="10">Capillary blood glucose measurement by glucometer (mass/volume) - 11/07/16 07:22</th> </tr> <tr> <td>Capillary blood glucose measurement by glucometer (mass/volume)</td> <td>168 mg/dL</td > <td>70-110</td> </tr> </tbody> </table> </text> < entry> <organizer moodCode="EVN" classCode="BATTERY"> <templateId root= "[id number]" /> <id nullFlavor="NA" /> <code codeSystem="local" code="CBC" displayName="CBC" /> <statusCode code= "completed" /> <component> <observation moodCode="EVN" classCode= "OBS"> <templateId root="[id number]" /> < id nullFlavor="NA" /> <code codeSystem="local" code="MCH" displayName= "MEAN CELL HGB" /> <statusCode code="completed" /> < effectiveTime value="" /> <value unit="pg" xsi:type="PQ" value="27.5" /> <referenceRange> <observationRange> <text>27.0-33.0</text> </observationRange> </ referenceRange> </observation> </component> <component> <observation moodCode="EVN" classCode="OBS"> <templateId root= "[id number]" /> <id nullFlavor="NA" /> < code codeSystem="local" code="MCHC" displayName="MEAN CELL HGB CONCENTRATION" / > <statusCode code="completed" /> <effectiveTime value= "" /> <value unit="g/dL" xsi:type="PQ" value="31.6" /> <interpretationCode codeSystem="local" code="*" /> < referenceRange> <observationRange> <text>32.0-37.0</text > </observationRange> </referenceRange> </observation > </component> <component> <observation moodCode="EVN" classCode="OBS"> <templateId root="[id number]" /> <id nullFlavor="NA" /> <code codeSystem="local" code="MCV" displayName="MEAN CELL VOLUME" /> <statusCode code="completed" /> <effectiveTime value="" /> <value unit="fl" xsi:type= "PQ" value="86.8" /> <referenceRange> <observationRange> <text>80.0-100.0</text> </observationRange> </ referenceRange> </observation> </component> <component> <observation moodCode="EVN" classCode="OBS"> <templateId root= "[id number]" /> <id nullFlavor="NA" /> < code codeSystem="local" code="RBC" displayName="RED BLOOD CELL" /> < statusCode code="completed" /> <effectiveTime value="" /> <value unit="m/cumm" xsi:type="PQ" value="4.33" /> < referenceRange> <observationRange> <text>4.00-6.00</text > </observationRange> </referenceRange> </observation > </component> <component> <observation moodCode="EVN" classCode="OBS"> <templateId root="[id number]" /> <id nullFlavor="NA" /> <code codeSystem="local" code="RDW" displayName="RED CELL DISTRIBUTION WIDTH" /> <statusCode code= "completed" /> <effectiveTime value="" /> <value unit="%" xsi:type="PQ" value="13.8" /> <referenceRange> <observationRange> <text>11.0-15.6</text> </ observationRange> </referenceRange> </observation> </ component> <component> <observation moodCode="EVN" classCode="OBS"> <templateId root="[id number].2" /> <id nullFlavor="NA" /> <code codeSystem="local" code="WBC" displayName= "WHITE BLOOD CELL" /> <statusCode code="completed" /> < effectiveTime value="" /> <value unit="k/cumm" xsi:type="PQ " value="4.0" /> <interpretationCode codeSystem="local" code="*" /> <referenceRange> <observationRange> <text>5.0- 10.0</text> </observationRange> </referenceRange> </ observation> </component> <component> <observation moodCode= "EVN" classCode="OBS"> <templateId root="840.1.512060.10..4.2 " /> <id nullFlavor="NA" /> <code codeSystem="local" code= "HGBT" displayName="HEMOGLOBIN" /> <statusCode code="completed" /> <effectiveTime value="" /> <value unit="gm/dL" xsi: type="PQ" value="11.9" /> <interpretationCode codeSystem="local" code= "*" /> <referenceRange> <observationRange> < text>12.0-16.0</text> </observationRange> </referenceRange> </observation> </component> <component> <observation moodCode="EVN" classCode="OBS"> <templateId root= "840.1.088655.10.2022.4.2" /> <id nullFlavor="NA" /> < code codeSystem="local" code="HCTT" displayName="HEMATOCRIT" /> < statusCode code="completed" /> <effectiveTime value="" /> <value unit="%" xsi:type="PQ" value="37.6" /> < referenceRange> <observationRange> <text>37.0-47.0</text > </observationRange> </referenceRange> </observation > </component> <component> <observation moodCode="EVN" classCode="OBS"> <templateId root="16.840.1.550823.10.4.2" /> <id nullFlavor="NA" /> <code codeSystem="local" code="PLT" displayName="PLATELET COUNT" /> <statusCode code="completed" /> <effectiveTime value="" /> <value unit="k/cumm" xsi:type ="PQ" value="145" /> <interpretationCode codeSystem="local" code="*" / > <referenceRange> <observationRange> <text>150 -400</text> </observationRange> </referenceRange> </ observation> </component> </organizer> </entry> <entry> <organizer moodCode="EVN" classCode="BATTERY"> <templateId root= "10.16.840.1.702024.06.19.22.4.1" /> <id nullFlavor="NA" /> <code codeSystem="local" code="MRSAS" displayName="MRSA SURVEILLANCE SCREEN" /> < statusCode code="completed" /> <component> <observation moodCode= "EVN" classCode="OBS"> <templateId root="10.16.840.1.771849.10.4.2 " /> <id nullFlavor="NA" /> <code codeSystem="local" code="MB " displayName="Microbiology" /> <statusCode code="completed" /> <effectiveTime value="[id number]" /> <value xsi:type="ST" value="< pre><b>MRSA SURVEILLANCE SCREEN</b> See BelowMRSA SURVEILLANCE SCREEN(F) Sus[place] Date/Time: 08/11/2014 13:29 [place] Date/Time: 08/12/2014 13:57SOURCE: ANTERIOR NARESSPEC DESC: [facility] [phone] [place] [address] </pre>" /> <referenceRange> <observationRange> <text /> </observationRange> </referenceRange> </ observation> </component> </organizer> </entry> <entry> <organizer moodCode="EVN" classCode="BATTERY"> <templateId root= "2.16.840.1.741123.10..22.4.1" /> <id nullFlavor="NA" /> <code codeSystem="local" code="METAB" displayName="METABOLIC PANEL, BASIC" /> < statusCode code="completed" /> <component> <observation moodCode= "EVN" classCode="OBS"> <templateId root="2.16.840.1.546521.10..22.4.2 " /> <id nullFlavor="NA" /> <code codeSystem="local" code="K" displayName="POTASSIUM" /> <statusCode code="completed" /> < effectiveTime value="[id number]" /> <value unit="mmol/L" xsi:type="PQ " value="4.0" /> <referenceRange> <observationRange> <text>3.5-5.3</text> </observationRange> </ referenceRange> </observation> </component> <component> <observation moodCode="EVN" classCode="OBS"> <templateId root= "2.16.840.1.147203.10..22.4.2" /> <id nullFlavor="NA" /> < code codeSystem="local" code="eGFR" displayName="EST GFR (MDRD)" /> < statusCode code="completed" /> <effectiveTime value="" /> <value unit="mL/min" xsi:type="PQ" value="> 60" /> < referenceRange> <observationRange> <text>> 59</text> </observationRange> </referenceRange> </observation > </component> <component> <observation moodCode="EVN" classCode="OBS"> <templateId root="216.840.1.023691.22.4.2" /> <id nullFlavor="NA" /> <code codeSystem="local" code="GAP" displayName="ANION GAP" /> <statusCode code="completed" /> < effectiveTime value="" /> <value unit="mmol/L" xsi:type="PQ " value="7" /> <referenceRange> <observationRange> <text>5-15</text> </observationRange> </referenceRange > </observation> </component> <component> <observation moodCode="EVN" classCode="OBS"> <templateId root= "10.16.840.1.171127.22.4.2" /> <id nullFlavor="NA" /> < code codeSystem="local" code="eCrCl" displayName="EST CrCl (CG)" /> < statusCode code="completed" /> <effectiveTime value="" /> <value unit="mL/min" xsi:type="PQ" value="> 60" /> < referenceRange> <observationRange> <text>> 59</text> </observationRange> </referenceRange> </observation > </component> <component> <observation moodCode="EVN" classCode="OBS"> <templateId root="216.840.1.486800.10.2022.4.2" /> <id nullFlavor="NA" /> <code codeSystem="local" code="GLU" displayName="GLUCOSE" /> <statusCode code="completed" /> < effectiveTime value="" /> <value unit="mg/dL" xsi:type="PQ " value="115" /> <interpretationCode codeSystem="local" code="*" /> <referenceRange> <observationRange> <text>70-99</ text> </observationRange> </referenceRange> </ observation> </component> <component> <observation moodCode= "EVN" classCode="OBS"> <templateId root="2.16.840.1.904135.10...4.2 " /> <id nullFlavor="NA" /> <code codeSystem="local" code="CA " displayName="CALCIUM" /> <statusCode code="completed" /> < effectiveTime value="" /> <value unit="mg/dL" xsi:type="PQ " value="9.7" /> <referenceRange> <observationRange> <text>8.5-10.1</text> </observationRange> </ referenceRange> </observation> </component> <component> <observation moodCode="EVN" classCode="OBS"> <templateId root= "2.16.840.1.656805.10...4.2" /> <id nullFlavor="NA" /> < code codeSystem="local" code="BUN" displayName="BLOOD UREA NITROGEN" /> <statusCode code="completed" /> <effectiveTime value="" / > <value unit="mg/dL" xsi:type="PQ" value="26" /> < interpretationCode codeSystem="local" code="*" /> <referenceRange> <observationRange> <text>7-20</text> </ observationRange> </referenceRange> </observation> </ component> <component> <observation moodCode="EVN" classCode="OBS"> <templateId root="216.840.1.255631.10..4.2" /> <id nullFlavor="NA" /> <code codeSystem="local" code="CREAT" displayName= "CREATININE" /> <statusCode code="completed" /> < effectiveTime value="" /> <value unit="mg/dL" xsi:type="PQ " value="0.8" /> <referenceRange> <observationRange> <text>0.6-1.0</text> </observationRange> </ referenceRange> </observation> </component> <component> <observation moodCode="EVN" classCode="OBS"> <templateId root= "216.840.1.312485.06.19.22.4.2" /> <id nullFlavor="NA" /> < code codeSystem="local" code="NA" displayName="SODIUM" /> <statusCode code="completed" /> <effectiveTime value="" /> < value unit="mmol/L" xsi:type="PQ" value="144" /> <referenceRange> <observationRange> <text>135-148</text> </ observationRange> </referenceRange> </observation> </ component> <component> <observation moodCode="EVN" classCode="OBS"> <templateId root="16.840.1.443911...4.2" /> <id nullFlavor="NA" /> <code codeSystem="local" code="CL" displayName= "CHLORIDE" /> <statusCode code="completed" /> <effectiveTime value="" /> <value unit="mmol/L" xsi:type="PQ" value="107" /> <referenceRange> <observationRange> <text>98 -110</text> </observationRange> </referenceRange> </ observation> </component> <component> <observation moodCode= "EVN" classCode="OBS"> <templateId root="216.840.1.638425.10..22.4.2 " /> <id nullFlavor="NA" /> <code codeSystem="local" code="CO2 " displayName="CARBON DIOXIDE" /> <statusCode code="completed" /> <effectiveTime value="[id number]" /> <value unit="mmol/L" xsi: type="PQ" value="30" /> <referenceRange> <observationRange> <text>21-32</text> </observationRange> </ referenceRange> </observation> </component> </organizer> </entry > <entry> <organizer moodCode="EVN" classCode="BATTERY"> <templateId root="216.840.1.162729.10..22.4.1" /> <id nullFlavor="NA" /> <code codeSystem="local" code="GLUMON" displayName="GLUCOSE (POC)" /> < statusCode code="completed" /> <component> <observation moodCode= "EVN" classCode="OBS"> <templateId root="216.840.1.256274.10..22.4.2 " /> <id nullFlavor="NA" /> <code codeSystem="local" code= "GLUMON" displayName="GLUCOSE (POC)" /> <statusCode code="completed" / > <effectiveTime value="[id number]" /> <value unit="mg/dL" xsi:type="PQ" value="107" /> <interpretationCode codeSystem="local" code="*" /> <referenceRange> <observationRange> <text>70-99</text> </observationRange> </referenceRange> </observation> </component> </organizer> </entry> <entry> < organizer moodCode="EVN" classCode="BATTERY"> <templateId root= "840.1.081134.06.19.22.4.1" /> <id nullFlavor="NA" /> <code codeSystem="local" code="GLUMON" displayName="GLUCOSE (POC)" /> < statusCode code="completed" /> <component> <observation moodCode= "EVN" classCode="OBS"> <templateId root="840.1.373768.06.19.224.2 " /> <id nullFlavor="NA" /> <code codeSystem="local" code= "GLUMON" displayName="GLUCOSE (POC)" /> <statusCode code="completed" / > <effectiveTime value="964565211944" /> <value unit="mg/dL" xsi:type="PQ" value="163" /> <interpretationCode codeSystem="local" code="*" /> <referenceRange> <observationRange> <text>70-99</text> </observationRange> </referenceRange> </observation> </component> </organizer> </entry> <entry> < organizer moodCode="EVN" classCode="BATTERY"> <templateId root= "840.1.653798.06.19.22.4.1" /> <id nullFlavor="NA" /> <code codeSystem="local" code="HH" displayName="HGB HCT" /> <statusCode code= "completed" /> <component> <observation moodCode="EVN" classCode= "OBS"> <templateId root="840.1.595343.06.19.22.4.2" /> < id nullFlavor="NA" /> <code codeSystem="local" code="MCV" displayName= "MEAN CELL VOLUME" /> <statusCode code="completed" /> < effectiveTime value="" /> <value unit="fl" xsi:type="PQ" value="84.5" /> <referenceRange> <observationRange> <text>80.0-100.0</text> </observationRange> </ referenceRange> </observation> </component> <component> <observation moodCode="EVN" classCode="OBS"> <templateId root= "216.840.1.032791.10.20.22.4.2" /> <id nullFlavor="NA" /> < code codeSystem="local" code="HGBT" displayName="HEMOGLOBIN" /> < statusCode code="completed" /> <effectiveTime value="" /> <value unit="gm/dL" xsi:type="PQ" value="12.1" /> < referenceRange> <observationRange> <text>12.0-16.0</text > </observationRange> </referenceRange> </observation > </component> <component> <observation moodCode="EVN" classCode="OBS"> <templateId root="2.16.840.1.798609.10.20.22.4.2" /> <id nullFlavor="NA" /> <code codeSystem="local" code="HCTT" displayName="HEMATOCRIT" /> <statusCode code="completed" /> < effectiveTime value="" /> <value unit="%" xsi:type="PQ " value="36.0" /> <interpretationCode codeSystem="local" code="*" /> <referenceRange> <observationRange> <text>37.0- 47.0</text> </observationRange> </referenceRange> </ observation> </component> </organizer> </entry> <entry> <organizer moodCode="EVN" classCode="BATTERY"> <templateId root= "10.16.840.1.770781.10...4.1" /> <id nullFlavor="NA" /> <code codeSystem="local" code="CBC" displayName="CBC" /> <statusCode code= "completed" /> <component> <observation moodCode="EVN" classCode= "OBS"> <templateId root="840.1.545881.06.19.22.4.2" /> < id nullFlavor="NA" /> <code codeSystem="local" code="MCH" displayName= "MEAN CELL HGB" /> <statusCode code="completed" /> < effectiveTime value="" /> <value unit="pg" xsi:type="PQ" value="27.6" /> <referenceRange> <observationRange> <text>27.0-33.0</text> </observationRange> </ referenceRange> </observation> </component> <component> <observation moodCode="EVN" classCode="OBS"> <templateId root= "840.1.806179.06.19.22.4.2" /> <id nullFlavor="NA" /> < code codeSystem="local" code="MCHC" displayName="MEAN CELL HGB CONCENTRATION" / > <statusCode code="completed" /> <effectiveTime value= "" /> <value unit="g/dL" xsi:type="PQ" value="32.4" /> <referenceRange> <observationRange> <text>32.0- 37.0</text> </observationRange> </referenceRange> </ observation> </component> <component> <observation moodCode= "EVN" classCode="OBS"> <templateId root="10.16.840.1.113192.06.19.22.4.2 " /> <id nullFlavor="NA" /> <code codeSystem="local" code="MCV " displayName="MEAN CELL VOLUME" /> <statusCode code="completed" /> <effectiveTime value="" /> <value unit="fl" xsi:type ="PQ" value="85.2" /> <referenceRange> <observationRange> <text>80.0-100.0</text> </observationRange> </ referenceRange> </observation> </component> <component> <observation moodCode="EVN" classCode="OBS"> <templateId root= "2.16.840.1.678356.06.19.22.4.2" /> <id nullFlavor="NA" /> < code codeSystem="local" code="RBC" displayName="RED BLOOD CELL" /> < statusCode code="completed" /> <effectiveTime value="" /> <value unit="m/cumm" xsi:type="PQ" value="4.20" /> < referenceRange> <observationRange> <text>4.00-6.00</text > </observationRange> </referenceRange> </observation > </component> <component> <observation moodCode="EVN" classCode="OBS"> <templateId root="2.16.840.1.687268.06.19.22.4.2" /> <id nullFlavor="NA" /> <code codeSystem="local" code="RDW" displayName="RED CELL DISTRIBUTION WIDTH" /> <statusCode code= "completed" /> <effectiveTime value="" /> <value unit="%" xsi:type="PQ" value="13.7" /> <referenceRange> <observationRange> <text>11.0-15.6</text> </ observationRange> </referenceRange> </observation> </ component> <component> <observation moodCode="EVN" classCode="OBS"> <templateId root="16.840.1.654096.10.20.22.4.2" /> <id nullFlavor="NA" /> <code codeSystem="local" code="WBC" displayName= "WHITE BLOOD CELL" /> <statusCode code="completed" /> < effectiveTime value="" /> <value unit="k/cumm" xsi:type="PQ " value="7.1" /> <referenceRange> <observationRange> <text>5.0-10.0</text> </observationRange> </ referenceRange> </observation> </component> <component> <observation moodCode="EVN" classCode="OBS"> <templateId root= "10.16.840.1.763623.22.4.2" /> <id nullFlavor="NA" /> < code codeSystem="local" code="HGBT" displayName="HEMOGLOBIN" /> < statusCode code="completed" /> <effectiveTime value="" /> <value unit="gm/dL" xsi:type="PQ" value="11.6" /> < interpretationCode codeSystem="local" code="*" /> <referenceRange> <observationRange> <text>12.0-16.0</text> </ observationRange> </referenceRange> </observation> </ component> <component> <observation moodCode="EVN" classCode="OBS"> <templateId root="10.16.840.1.351604.10.22.4.2" /> <id nullFlavor="NA" /> <code codeSystem="local" code="HCTT" displayName= "HEMATOCRIT" /> <statusCode code="completed" /> < effectiveTime value="" /> <value unit="%" xsi:type="PQ " value="35.8" /> <interpretationCode codeSystem="local" code="*" /> <referenceRange> <observationRange> <text>37.0- 47.0</text> </observationRange> </referenceRange> </ observation> </component> <component> <observation moodCode= "EVN" classCode="OBS"> <templateId root="10.16.840.1.433914.06.19.22.4.2 " /> <id nullFlavor="NA" /> <code codeSystem="local" code="PLT " displayName="PLATELET COUNT" /> <statusCode code="completed" /> <effectiveTime value="" /> <value unit="k/cumm" xsi: type="PQ" value="124" /> <interpretationCode codeSystem="local" code="* " /> <referenceRange> <observationRange> <text> 150-400</text> </observationRange> </referenceRange> </observation> </component> </organizer> </entry> <entry> < organizer moodCode="EVN" classCode="BATTERY"> <templateId root= "10.16.840.1.481325...4.1" /> <id nullFlavor="NA" /> <code codeSystem="local" code="GLUMON" displayName="GLUCOSE (POC)" /> < statusCode code="completed" /> <component> <observation moodCode= "EVN" classCode="OBS"> <templateId root="10.16.840.1.611818.06.19.22.4.2 " /> <id nullFlavor="NA" /> <code codeSystem="local" code= "GLUMON" displayName="GLUCOSE (POC)" /> <statusCode code="completed" / > <effectiveTime value="" /> <value unit="mg/dL" xsi:type="PQ" value="155" /> <interpretationCode codeSystem="local" code="*" /> <referenceRange> <observationRange> <text>70-99</text> </observationRange> </referenceRange> </observation> </component> </organizer> </entry> <entry> < organizer moodCode="EVN" classCode="BATTERY"> <templateId root= "216.840.1.121345.10..22.4.1" /> <id nullFlavor="NA" /> <code codeSystem="local" code="GLUMON" displayName="GLUCOSE (POC)" /> < statusCode code="completed" /> <component> <observation moodCode= "EVN" classCode="OBS"> <templateId root="2.16.840.1.822848.10..22.4.2 " /> <id nullFlavor="NA" /> <code codeSystem="local" code= "GLUMON" displayName="GLUCOSE (POC)" /> <statusCode code="completed" / > <effectiveTime value="359114626891" /> <value unit="mg/dL" xsi:type="PQ" value="196" /> <interpretationCode codeSystem="local" code="*" /> <referenceRange> <observationRange> <text>70-99</text> </observationRange> </referenceRange> </observation> </component> </organizer> </entry> <entry> < organizer moodCode="EVN" classCode="BATTERY"> <templateId root= "216.840.1.524135.10..22.4.1" /> <id nullFlavor="NA" /> <code codeSystem="local" code="12435-2" displayName="Complete blood count (CBC) with automated white blood cell (WBC) differential" /> <statusCode code= "completed" /> <component> <observation moodCode="EVN" classCode= "OBS"> <templateId root="2.16.840.1.781694.10.20.22.4.2" /> < id nullFlavor="NA" /> <code codeSystem="local" code="6690-2" displayName="Blood leukocytes automated count (number/volume)" /> < statusCode code="completed" /> <effectiveTime value="" /> <value unit="10*3/uL" xsi:type="PQ" value="5.2" /> < referenceRange> <observationRange> <text>4.3-11.0</text > </observationRange> </referenceRange> </observation > </component> <component> <observation moodCode="EVN" classCode="OBS"> <templateId root="2.16.840.1.166449.10..22.4.2" /> <id nullFlavor="NA" /> <code codeSystem="local" code="789-8" displayName="Blood erythrocytes automated count (number/volume)" /> < statusCode code="completed" /> <effectiveTime value="" /> <value unit="10*6/uL" xsi:type="PQ" value="4.60" /> < referenceRange> <observationRange> <text>4.35-5.85</text > </observationRange> </referenceRange> </observation > </component> <component> <observation moodCode="EVN" classCode="OBS"> <templateId root="2.16.840.1.775739.10.20.22.4.2" /> <id nullFlavor="NA" /> <code codeSystem="local" code="03974-4 " displayName="Venous blood hemoglobin measurement (mass/volume)" /> < statusCode code="completed" /> <effectiveTime value="" /> <value unit="g/dL" xsi:type="PQ" value="12.8" /> < referenceRange> <observationRange> <text>11.5-16.0</text > </observationRange> </referenceRange> </observation > </component> <component> <observation moodCode="EVN" classCode="OBS"> <templateId root="2.16.840.1.194095.10.20.22.4.2" /> <id nullFlavor="NA" /> <code codeSystem="local" code="60836-0 " displayName="Blood hematocrit (volume fraction)" /> <statusCode code= "completed" /> <effectiveTime value="238886903309" /> <value unit="%" xsi:type="PQ" value="39" /> <referenceRange> < observationRange> <text>35-52</text> </observationRange > </referenceRange> </observation> </component> < component> <observation moodCode="EVN" classCode="OBS"> < templateId root="216.840.1.852311.10..22.4.2" /> <id nullFlavor="NA " /> <code codeSystem="local" code="787-2" displayName="Automated erythrocyte mean corpuscular volume" /> <statusCode code="completed" / > <effectiveTime value="825376198009" /> <value unit="[foz_us] " xsi:type="PQ" value="84" /> <referenceRange> < observationRange> <text>80-99</text> </observationRange > </referenceRange> </observation> </component> < component> <observation moodCode="EVN" classCode="OBS"> < templateId root="2.16.840.1.204377.10.20.22.4.2" /> <id nullFlavor="NA " /> <code codeSystem="local" code="785-6" displayName="Automated erythrocyte mean corpuscular hemoglobin (mass per erythrocyte)" /> < statusCode code="completed" /> <effectiveTime value="" /> <value unit="pg" xsi:type="PQ" value="28" /> <referenceRange> <observationRange> <text>25-34</text> </ observationRange> </referenceRange> </observation> </ component> <component> <observation moodCode="EVN" classCode="OBS"> <templateId root="2.16.840.1.416901.10.20.22.4.2" /> <id nullFlavor="NA" /> <code codeSystem="local" code="786-4" displayName= "Automated erythrocyte mean corpuscular hemoglobin concentration measurement ( mass/volume)" /> <statusCode code="completed" /> < effectiveTime value="660549370502" /> <value unit="g/dL" xsi:type="PQ" value="33" /> <referenceRange> <observationRange> <text>32-36</text> </observationRange> </referenceRange > </observation> </component> <component> <observation moodCode="EVN" classCode="OBS"> <templateId root= "2.16.840.1.013623.10.20.22.4.2" /> <id nullFlavor="NA" /> < code codeSystem="local" code="788-0" displayName="Automated erythrocyte distribution width ratio" /> <statusCode code="completed" /> < effectiveTime value="" /> <value unit="%" xsi:type="PQ " value="13.9" /> <referenceRange> <observationRange> <text>10.0-14.5</text> </observationRange> </ referenceRange> </observation> </component> <component> <observation moodCode="EVN" classCode="OBS"> <templateId root= "216.840.1.122675.10.20.22.4.2" /> <id nullFlavor="NA" /> < code codeSystem="local" code="777-3" displayName="Automated blood platelet count (count/volume)" /> <statusCode code="completed" /> < effectiveTime value="412631185426" /> <value unit="10*3/uL" xsi:type= "PQ" value="156" /> <referenceRange> <observationRange> <text>130-400</text> </observationRange> </ referenceRange> </observation> </component> <component> <observation moodCode="EVN" classCode="OBS"> <templateId root= "216.840.1.639132..22.4.2" /> <id nullFlavor="NA" /> < code codeSystem="local" code="79100-4" displayName="Automated blood platelet mean volume measurement" /> <statusCode code="completed" /> < effectiveTime value="331961308310" /> <value unit="[foz_us]" xsi:type= "PQ" value="10.9" /> <interpretationCode codeSystem="local" code="" / > <referenceRange> <observationRange> <text>7.4 -10.4</text> </observationRange> </referenceRange> </ observation> </component> <component> <observation moodCode= "EVN" classCode="OBS"> <templateId root="216.840.1.577174.10.20.22.4.2 " /> <id nullFlavor="NA" /> <code codeSystem="local" code="770 -8" displayName="Automated blood neutrophils/100 leukocytes" /> < statusCode code="completed" /> <effectiveTime value="443709279317" /> <value unit="%" xsi:type="PQ" value="67" /> < referenceRange> <observationRange> <text>42-75</text> </observationRange> </referenceRange> </observation> </component> <component> <observation moodCode="EVN" classCode= "OBS"> <templateId root="2.16.840.1.993740.10..22.4.2" /> < id nullFlavor="NA" /> <code codeSystem="local" code="736-9" displayName ="Automated blood lymphocytes/100 leukocytes" /> <statusCode code= "completed" /> <effectiveTime value="055130113080" /> <value unit="%" xsi:type="PQ" value="25" /> <referenceRange> < observationRange> <text>12-44</text> </observationRange > </referenceRange> </observation> </component> < component> <observation moodCode="EVN" classCode="OBS"> < templateId root="216.840.1.363983.10..22.4.2" /> <id nullFlavor="NA " /> <code codeSystem="local" code="06879-9" displayName="Blood monocytes/100 leukocytes" /> <statusCode code="completed" /> < effectiveTime value="402987449418" /> <value unit="%" xsi:type="PQ " value="6" /> <referenceRange> <observationRange> <text>0-12</text> </observationRange> </referenceRange > </observation> </component> <component> <observation moodCode="EVN" classCode="OBS"> <templateId root= "216.840.1.595782.06.19.22.4.2" /> <id nullFlavor="NA" /> < code codeSystem="local" code="713-8" displayName="Automated blood eosinophils/ 100 leukocytes" /> <statusCode code="completed" /> < effectiveTime value="661633562622" /> <value unit="%" xsi:type="PQ " value="2" /> <referenceRange> <observationRange> <text>0-10</text> </observationRange> </referenceRange > </observation> </component> <component> <observation moodCode="EVN" classCode="OBS"> <templateId root= "2.16.840.1.482903.06.19.22.4.2" /> <id nullFlavor="NA" /> < code codeSystem="local" code="706-2" displayName="Automated blood basophils/100 leukocytes" /> <statusCode code="completed" /> <effectiveTime value="615225563473" /> <value unit="%" xsi:type="PQ" value="0" /> <referenceRange> <observationRange> <text>0-10 </text> </observationRange> </referenceRange> </ observation> </component> <component> <observation moodCode= "EVN" classCode="OBS"> <templateId root="2.16.840.1.784033.06.19.22.4.2 " /> <id nullFlavor="NA" /> <code codeSystem="local" code="751 -8" displayName="Blood neutrophils automated count (number/volume)" /> <statusCode code="completed" /> <effectiveTime value="462352218359" /> <value unit="10*3" xsi:type="PQ" value="3.5" /> < referenceRange> <observationRange> <text>1.8-7.8</text> </observationRange> </referenceRange> </observation > </component> <component> <observation moodCode="EVN" classCode="OBS"> <templateId root="2.16.840.1.782169.10..22.4.2" /> <id nullFlavor="NA" /> <code codeSystem="local" code="731-0" displayName="Blood lymphocytes automated count (number/volume)" /> < statusCode code="completed" /> <effectiveTime value="" /> <value unit="10*3" xsi:type="PQ" value="1.3" /> < referenceRange> <observationRange> <text>1.0-4.0</text> </observationRange> </referenceRange> </observation > </component> <component> <observation moodCode="EVN" classCode="OBS"> <templateId root="2.16.840.1.252093.22.4.2" /> <id nullFlavor="NA" /> <code codeSystem="local" code="742-7" displayName="Blood monocytes automated count (number/volume)" /> < statusCode code="completed" /> <effectiveTime value="065496802791" /> <value unit="10*3" xsi:type="PQ" value="0.3" /> < referenceRange> <observationRange> <text>0.0-1.0</text> </observationRange> </referenceRange> </observation > </component> <component> <observation moodCode="EVN" classCode="OBS"> <templateId root="2.16.840.1.459449.10.2022.4.2" /> <id nullFlavor="NA" /> <code codeSystem="local" code="711-2" displayName="Automated eosinophil count" /> <statusCode code="completed " /> <effectiveTime value="851809485125" /> <value unit="10*3/ uL" xsi:type="PQ" value="0.1" /> <referenceRange> < observationRange> <text>0.0-0.3</text> </ observationRange> </referenceRange> </observation> </ component> <component> <observation moodCode="EVN" classCode="OBS"> <templateId root="10.16.840.1.889630.06.19.22.4.2" /> <id nullFlavor="NA" /> <code codeSystem="local" code="704-7" displayName= "Automated blood basophil count (count/volume)" /> <statusCode code= "completed" /> <effectiveTime value="270918676771" /> <value unit="10*3/uL" xsi:type="PQ" value="0.0" /> <referenceRange> <observationRange> <text>0.0-0.1</text> </ observationRange> </referenceRange> </observation> </ component> </organizer> </entry> <entry> <organizer moodCode="EVN" classCode="BATTERY"> <templateId root="10.16.840.1.589654.10..4.1" /> <id nullFlavor="NA" /> <code codeSystem="local" code="56241-3" displayName="Comprehensive metabolic panel" /> <statusCode code="completed " /> <component> <observation moodCode="EVN" classCode="OBS"> <templateId root="10.16.840.1.397827.10..4.2" /> <id nullFlavor ="NA" /> <code codeSystem="local" code="2951-2" displayName="Serum or plasma sodium measurement (moles/volume)" /> <statusCode code= "completed" /> <effectiveTime value="191450596410" /> <value unit="mmol/L" xsi:type="PQ" value="141" /> <referenceRange> <observationRange> <text>135-145</text> </ observationRange> </referenceRange> </observation> </ component> <component> <observation moodCode="EVN" classCode="OBS"> <templateId root="2.16.840.1.745875.10.20.22.4.2" /> <id nullFlavor="NA" /> <code codeSystem="local" code="2823-3" displayName= "Serum or plasma potassium measurement (moles/volume)" /> <statusCode code="completed" /> <effectiveTime value="797886114614" /> < value unit="mmol/L" xsi:type="PQ" value="4.4" /> <referenceRange> <observationRange> <text>3.6-5.0</text> </ observationRange> </referenceRange> </observation> </ component> <component> <observation moodCode="EVN" classCode="OBS"> <templateId root="2.16.840.1.454725.10.20.22.4.2" /> <id nullFlavor="NA" /> <code codeSystem="local" code="2075-0" displayName= "Serum or plasma chloride measurement (moles/volume)" /> <statusCode code="completed" /> <effectiveTime value="632427924534" /> < value unit="mmol/L" xsi:type="PQ" value="108" /> <interpretationCode codeSystem="local" code="" /> <referenceRange> < observationRange> <text>98-107</text> </observationRange > </referenceRange> </observation> </component> < component> <observation moodCode="EVN" classCode="OBS"> < templateId root="216.840.1.337471.10..22.4.2" /> <id nullFlavor="NA " /> <code codeSystem="local" code="2028-05" displayName="Carbon dioxide " /> <statusCode code="completed" /> <effectiveTime value= "945530232073" /> <value unit="mmol/L" xsi:type="PQ" value="24" /> <referenceRange> <observationRange> <text>21-32</ text> </observationRange> </referenceRange> </ observation> </component> <component> <observation moodCode= "EVN" classCode="OBS"> <templateId root="2.16.840.1.678239.10..22.4.2 " /> <id nullFlavor="NA" /> <code codeSystem="local" code= "86470-9" displayName="Serum or plasma anion gap determination (moles/volume)" / > <statusCode code="completed" /> <effectiveTime value= "681799681273" /> <value unit="mmol/L" xsi:type="PQ" value="9" /> <referenceRange> <observationRange> <text>5-14</ text> </observationRange> </referenceRange> </ observation> </component> <component> <observation moodCode= "EVN" classCode="OBS"> <templateId root=".16.840.1.134562.10..22.4.2 " /> <id nullFlavor="NA" /> <code codeSystem="local" code= "3094-0" displayName="Serum or plasma urea nitrogen measurement (mass/volume)" / > <statusCode code="completed" /> <effectiveTime value= "" /> <value unit="mg/dL" xsi:type="PQ" value="23" /> <interpretationCode codeSystem="local" code="" /> < referenceRange> <observationRange> <text>7-18</text> </observationRange> </referenceRange> </observation> </component> <component> <observation moodCode="EVN" classCode= "OBS"> <templateId root="216.840.1.709902.10.20.22.4.2" /> < id nullFlavor="NA" /> <code codeSystem="local" code="2160-0" displayName="Serum or plasma creatinine measurement (mass/volume)" /> < statusCode code="completed" /> <effectiveTime value="442659432333" /> <value unit="mg/dL" xsi:type="PQ" value="0.94" /> < referenceRange> <observationRange> <text>0.60-1.30</text > </observationRange> </referenceRange> </observation > </component> <component> <observation moodCode="EVN" classCode="OBS"> <templateId root="10.16.840.1.151849.10.20.22.4.2" /> <id nullFlavor="NA" /> <code codeSystem="local" code="3097-3" displayName="Serum or plasma urea nitrogen/creatinine mass ratio" /> < statusCode code="completed" /> <effectiveTime value="766424059614" /> <value unit="" xsi:type="PQ" value="24" /> <referenceRange> <observationRange> <text>NRG</text> </ observationRange> </referenceRange> </observation> </ component> <component> <observation moodCode="EVN" classCode="OBS"> <templateId root="10.16.840.1.615027.10.20.22.4.2" /> <id nullFlavor="NA" /> <code codeSystem="local" code="24880-5" displayName= "Serum or plasma creatinine measurement with calculation of estimated glomerular filtration rate" /> <statusCode code="completed" /> <effectiveTime value="012620597906" /> <value unit="" xsi:type="PQ" value="58" /> <referenceRange> <observationRange> <text>NRG</text> </observationRange> </referenceRange> </observation> </component> <component> <observation moodCode="EVN" classCode="OBS"> <templateId root= "2.16.840.1.581540.10.20.22.4.2" /> <id nullFlavor="NA" /> < code codeSystem="local" code="2345-7" displayName="Serum or plasma glucose measurement (mass/volume)" /> <statusCode code="completed" /> <effectiveTime value="023976449685" /> <value unit="mg/dL" xsi:type="PQ " value="194" /> <interpretationCode codeSystem="local" code="" /> <referenceRange> <observationRange> <text>70-105 </text> </observationRange> </referenceRange> </ observation> </component> <component> <observation moodCode= "EVN" classCode="OBS"> <templateId root="2.16.840.1.384134.10.20.22.4.2 " /> <id nullFlavor="NA" /> <code codeSystem="local" code= "80551-1" displayName="Serum or plasma calcium measurement (mass/volume)" /> <statusCode code="completed" /> <effectiveTime value= "996363680196" /> <value unit="mg/dL" xsi:type="PQ" value="9.7" /> <referenceRange> <observationRange> <text>8.5-10.1 </text> </observationRange> </referenceRange> </ observation> </component> <component> <observation moodCode= "EVN" classCode="OBS"> <templateId root="2.16.840.1.005657.10.20.22.4.2 " /> <id nullFlavor="NA" /> <code codeSystem="local" code= "1974-10" displayName="Serum or plasma total bilirubin measurement (mass/volume) " /> <statusCode code="completed" /> <effectiveTime value= "393472549731" /> <value unit="mg/dL" xsi:type="PQ" value="0.6" /> <referenceRange> <observationRange> <text>0.1-1.0< /text> </observationRange> </referenceRange> </ observation> </component> <component> <observation moodCode= "EVN" classCode="OBS"> <templateId root="2.16.840.1.193115.10..22.4.2 " /> <id nullFlavor="NA" /> <code codeSystem="local" code= "6768-6" displayName="Serum or plasma alkaline phosphatase measurement ( enzymatic activity/volume)" /> <statusCode code="completed" /> <effectiveTime value="455743739957" /> <value unit="U/L" xsi:type="PQ " value="67" /> <referenceRange> <observationRange> <text>40-136</text> </observationRange> </ referenceRange> </observation> </component> <component> <observation moodCode="EVN" classCode="OBS"> <templateId root= "2.16.840.1.927154.10.20.22.4.2" /> <id nullFlavor="NA" /> < code codeSystem="local" code="192" displayName="Serum or plasma aspartate aminotransferase measurement (enzymatic activity/volume)" /> < statusCode code="completed" /> <effectiveTime value="830812709330" /> <value unit="U/L" xsi:type="PQ" value="19" /> <referenceRange > <observationRange> <text>5-34</text> </ observationRange> </referenceRange> </observation> </ component> <component> <observation moodCode="EVN" classCode="OBS"> <templateId root="2.16.840.1.473646.10.20.22.4.2" /> <id nullFlavor="NA" /> <code codeSystem="local" code="1742-6" displayName= "Serum or plasma alanine aminotransferase measurement (enzymatic activity/volume )" /> <statusCode code="completed" /> <effectiveTime value= "730495290283" /> <value unit="U/L" xsi:type="PQ" value="14" /> <referenceRange> <observationRange> <text>0-55</text > </observationRange> </referenceRange> </observation > </component> <component> <observation moodCode="EVN" classCode="OBS"> <templateId root="2.16.840.1.383891.10..22.4.2" /> <id nullFlavor="NA" /> <code codeSystem="local" code="2885-2" displayName="Serum or plasma protein measurement (mass/volume)" /> < statusCode code="completed" /> <effectiveTime value="614970368483" /> <value unit="g/dL" xsi:type="PQ" value="6.7" /> < referenceRange> <observationRange> <text>6.4-8.2</text> </observationRange> </referenceRange> </observation > </component> <component> <observation moodCode="EVN" classCode="OBS"> <templateId root="2.16.840.1.972791.10.20.22.4.2" /> <id nullFlavor="NA" /> <code codeSystem="local" code="1751-7" displayName="Serum or plasma albumin measurement (mass/volume)" /> < statusCode code="completed" /> <effectiveTime value="324126170269" /> <value unit="g/dL" xsi:type="PQ" value="4.2" /> < referenceRange> <observationRange> <text>3.2-4.5</text> </observationRange> </referenceRange> </observation > </component> </organizer> </entry> <entry> <organizer moodCode= "EVN" classCode="BATTERY"> <templateId root="2.16.840.1.987545.10.20.22.4.1 " /> <id nullFlavor="NA" /> <code codeSystem="local" code="83622-1" displayName="Methicillin resistant Staphylococcus aureus (MRSA) screening culture" /> <statusCode code="completed" /> <component> < observation moodCode="EVN" classCode="OBS"> <templateId root= "2.16.840.1.777807.10.20.22.4.2" /> <id nullFlavor="NA" /> < code codeSystem="local" code="55132-2" displayName="Methicillin resistant Staphylococcus aureus (MRSA) screening culture" /> <statusCode code= "completed" /> <effectiveTime value="842259793661" /> <value unit="" xsi:type="PQ" value="NEG" /> <referenceRange> < observationRange> <text>NRG</text> </observationRange> </referenceRange> </observation> </component> </ organizer> </entry> <entry> <organizer moodCode="EVN" classCode="BATTERY"> <templateId root="2.16.840.1.021152.10.20.22.4.1" /> <id nullFlavor= "NA" /> <code codeSystem="local" code="62262-2" displayName="Capillary blood glucose measurement by glucometer (mass/volume)" /> <statusCode code= "completed" /> <component> <observation moodCode="EVN" classCode= "OBS"> <templateId root="2.16.840.1.869138.10.20.22.4.2" /> < id nullFlavor="NA" /> <code codeSystem="local" code="64329-9" displayName="Capillary blood glucose measurement by glucometer (mass/volume)" / > <statusCode code="completed" /> <effectiveTime value= "872330370324" /> <value unit="mg/dL" xsi:type="PQ" value="168" /> <interpretationCode codeSystem="local" code="" /> < referenceRange> <observationRange> <text>70-110</text> </observationRange> </referenceRange> </observation> </component> </organizer> </entry></section> Encounters ACCT No. Visit Date/Time Discharge Status Pt. Type Provider Facility Loc./Unit Complaint [id number] 03/05/2018 13:33:00 03/05/2018 23:59:59 CLS Outpatient TISHA PINK MD [facility] ONC [id number] 02/25/2018 12:48:00 02/25/2018 23:59:59 CLS Outpatient GAUDENCIO MCKEON [facility] RAD ENLARGED LYMPH NODES LEFT [id number] 02/18/2018 12:41:00 02/18/2018 23:59:59 CLS Outpatient REUBEN HEWITT, HUGO Quiñonez [facility] RAD LT CHEST WALL PAIN W / LUMP [id number] 01/13/2017 09:54:00 01/13/2017 23:59:59 CLS Outpatient DAVID KEITA MD [facility] RAD HYPERMATBOLIC LYMPH NODE D49.89 [id number] 12/23/2016 07:49:00 12/23/2016 23:59:59 CLS Outpatient BISMARK HEWITT, PETE Jones [facility] RAD 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 [id number] 12/16/2016 19:24:00 12/16/2016 20:56:00 DIS Emergency ORACIO SEBASTIAN DO [facility] ER POST OP R EAR BLEEDING [id number] 11/07/2016 06:49:00 11/07/2016 12:37:00 DIS Outpatient DAVID KEITA MD [facility] RIGHT EAR LESION [id number] 10/30/2016 12:22:00 10/30/2016 14:51:00 DIS Outpatient DAVID KEITA MD [facility] PREOP RIGHT EAR LESION [id number] 08/07/2014 08:38:00 08/07/2014 23:59:59 CLS Outpatient JEAN ORTGEA MD [facility] CARD PRE OP UNSPECIFIED [id number] 08/15/2013 10:38:00 08/16/2013 11:00:00 DIS Outpatient LUIS AE DDKEYANNA Walters [facility] BCC CHEEK AND FOREHEAD [id number] 08/11/2013 12:31:00 08/11/2013 23:59:59 CLS Outpatient LUIS AE DDKEYANNA Walters [facility] PREOP BCC FOREHEAD AND CHEEK [id number] 04/03/2013 18:40:00 04/03/2013 21:17:00 DIS Emergency BRANDON GAYLE [facility] ER RASH [id number] 03/09/2018 09:59:00 ACT Outpatient EFRAIN HERRING [facility] RAD FOLLICULAR LYMPHOMA [id number] 06/16/2011 09:52:00 Document Registration [id number] 02/03/2011 08:17:00 Document Registration [id number] 01/15/2011 08:35:00 Document Registration [id number] 09/11/2010 07:40:00 Document Registration [id number] 01/11/2010 14:45:00 Document Registration [id number] 08/11/2014 09:35:00 08/12/2014 14:36:00 DIS Outpatient Jordan HEWITT, Jean Veliz [facility] W.OPRA [id number] 08/11/2014 13:00:00 08/11/2014 13:00:00 CAN Outpatient Jean Ortega MD 05/14/2017 16:51:51 05/14/2017 23:59:59 CLS Outpatient
[2018-03-10] MEDS ORDERED: LIDOCAINE PF 2% 5 ML (XYLOCAINE) VIAL INJ ONE (10:08)
[2018-03-10] MEDS ORDERED: HURRICAINE EXT TUBE (BENZOCAINE) XX ONE (10:08)
[2018-03-10] MEDS ORDERED: LACTATED RINGERS 1,000 ML IV ONE (10:08)
[2018-03-10] MEDS ORDERED: proPOfol 200 MG/20 ML (DIPRIVAN) VIAL IV ONE (10:08)
[2018-03-10] MEDS ORDERED: DEXAMETHASONE 10 MG/ML (DECADRON) 1 ML VIAL IV ONE (10:08)
[2018-03-10] MEDS ORDERED: MIDAZOLAM 2 MG/2 ML (VERSED) VIAL INJ ONE (10:09)
[2018-03-10] MEDS ORDERED: fentaNYL INJECTION 100 MCG/2 ML AMP INJ ONE (10:09)
[2018-03-10 10:10] VITALS: BP 136/70
--- NOTE | 2018-03-10 10:24 | Progress Note-Pre Operative ---
Pre-Operative Progress Note H&P Reviewed The H&P was reviewed, patient examined and no changes noted. Date Seen by Provider: Mar 09, 2018 Time Seen by Provider: 11:20 Date H&P Reviewed: Mar 10, 2018 Time H&P Reviewed: 10:24 Pre-Operative Diagnosis: Lymphoma JESSI FIGUEROA MD Mar 10, 2018 10:24 am
[2018-03-10] MEDS ORDERED: ceFAZolin 2 GM IV Premixed 50 ML IV ONE (10:30)
[2018-03-10] MEDS ORDERED: 0.9% SODIUM CHLORIDE PF INJ 20 ML VIAL ONE (10:40)
[2018-03-10] MEDS ORDERED: HEParin (CENTRAL IV FLUSH) 500 UNIT/5 ML SYR ONE (10:40)
[2018-03-10] MEDS ORDERED: BUP/EPI 0.5% 1:200,000 (SENSORCAINE) 30 ML VIAL ONE (10:40)
[2018-03-10] MEDS: LACTATED RINGERS 1,000 ML IV SCH ×2 (10:55→12:24)
[2018-03-10] MEDS ORDERED: SEVOFLURANE (ULTANE) 15 ML INHAL SOLN INH ONE ×3 (11:44→13:15)
--- NOTE | 2018-03-10 13:19 | Operative Report ---
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 To facilitate further histologic identification to direct systemic therapy, excision biopsy of a lymph node was requested by the oncologist. In anticipation of systemic therapy, placing an Sanyne-i-Rtov was also felt to be reasonable. Informed consent was obtained after reviewing the operative details and complications of hematoma and wound infection. Description of the procedures: 1. Tclcib-e-Kpqd placement: She was placed supine on the operating table and general anesthesia induced. Ancef was administered intravenously as prophylaxis against wound infection sequential compression devices were placed around her legs, to minimize the risk of venous thrombosis. Her neck and upper chest were prepared and draped in the usual sterile manner. Right internal jugular vein was localized using and 12 MHz ultrasound probe and a floppy guidewire introduced into the heart, under fluoroscopy's pocket was created over the infraclavicular fossa and the Jeremias catheter brought into the neck, in a retrograde fashion. It was then advanced into the heart, under fluoroscopy , subsequently being pulled back to the superior vena cava. The port was then connected to the catheter and secured to the pectoralis tissue using 2-0 Prolene sutures. Incision was closed using 3-0 Vicryl for the subcutaneous tissue and 4-0 Vicryl for skin, in a subcuticular fashion. 0.5 percent Marcaine with epinephrine was infiltrated along the incision preemptively. 2. Excision biopsy of left axillary lymph node: After adequate antiseptic preparation, preemptive analgesia was established using 0.5 percent Marcaine with epinephrine. A 5 cm incision was made inferior to the axillary hairline and axillary fascia incised. A large superficial lymph node came into view and was excised intact, lymphatics being controlled with ligaclips. The tissue was sent fresh for histologic examination. Hemostasis was optimized using ligaclips and a use of cautery. The incision was then closed using 3-0 Vicryl for the subcutaneous tissue and 4-0 Vicryl for skin, in a subcuticular fashion. She tolerated the procedures well, was extubated in the operating room and taken to the recovery room in a stable condition. Findings of the Procedure See op report Allergies and Home Medications Allergies Coded Allergies: Vbvpepd-Jip-Ezm Reductase Inhibitor (Unverified Allergy, Mild, MUSCLE PAIN , 03/09/18) adhesive (Unverified Allergy, Unknown, 03/09/18) lisinopril (Unverified Adverse Reaction, Mild, COUGH, 03/09/18) Home Medications Carboxymethylcellulose Sodium 15 Ml Drp.lq.gel, 15 ML OP Q3HR, (Reported) Carvedilol 12.5 Mg Tablet, 6.25 MG PO BID, (Reported) Cholecalciferol (Vitamin D3) 1,000 Unit Capsule, 2,000 UNIT PO DAILY, (Reported) Hydrochlorothiazide 25 Mg Tablet, 25 MG PO EVERY OTHER DAY, (Reported) Insulin Detemir 100 Unit/1 Ml Insuln.pen, 13 UNIT SQ BID, (Reported) Levothyroxine Sodium 75 Mcg Tablet, 75 MCG PO DAILY, (Reported) Loratadine 10 Mg Tablet, 10 MG PO DAILY, (Reported) Meloxicam 15 Mg Tablet, 15 MG PO DAILY, (Reported) Metformin HCl 500 Mg Tablet, 500 MG PO BID, (Reported) Omeprazole 20 Mg Tablet.dr, 20 MG PO DAILY, (Reported) Oxybutynin Chloride 10 Mg Tab.er.24, 10 MG PO DAILY, (Reported) Polyethylene Glycol 3350 17 Gm Powd.pack, 17 GM PO DAILY, (Reported) Saxagliptin HCl 5 Mg Tablet, 5 MG PO DAILY, (Reported) Urea 255 Gm Cream..g., 255 GM TP BID, (Reported) Vit C/E/Zn/Coppr/Lutein/Zeaxan 1 Each Capsule, 2 EACH PO DAILY, (Reported) Patient Home Medication List Home Medication List Reviewed: Yes JESSI FIGUEROA MD Mar 10, 2018 1:19 pm
[2018-03-10] MEDS ORDERED: ACHD5005 PO (13:21)
--- NOTE | 2018-03-10 13:22 | Discharge Inst-Simple/Standard ---
Discharge Inst-Standard Discharge Medications New, Converted or Re-Newed RX: RX on Chart Patient Instructions/Follow Up Plan of Care/Instructions/FU: Dressings off in 48 hours. Incentive spirometry. Follow-up in 2 weeks. Activity as Tolerated: Yes Discharge Diet: No Restrictions JESSI FIGUEROA MD Mar 10, 2018 1:22 pm
[2018-03-10] MEDS ORDERED: morphine INJ 10 MG/ML 1ML (SYR OR VIAL) IVP PRN (13:30)
[2018-03-10] MEDS ORDERED: ONDANSETRON 4 MG/2 ML (SDV) Z0FRAN IVP PRN (13:30)
--- NOTE | 2018-03-10 13:58 | Diagnostic Imaging Report ---
Indication: Fluoroscopy for port placement. Fluoroscopy was provided for Dr. Tovar for port placement. 59 seconds of fluoroscopy was utilized. The right IJ line appears to have the tip at the SVC right atrial junction. Impression: Fluoroscopy for right chest wall port placement. Dictated by: Dictated on workstation # [id number]
[2018-03-10 14:10] VITALS: BP 177/71
[2018-03-10 14:40] VITALS: BP 159/87
[2018-03-10 15:00] VITALS: BP 159/81
[2018-03-10 15:10] VITALS: BP 159/81
--- NOTE | 2018-03-10 15:19 | Anesthesia-General Post-Op ---
General Patient Condition Mental Status/LOC: Same as Preop Cardiovascular: Satisfactory Nausea/Vomiting: Absent Respiratory: Satisfactory Pain: Controlled Complications: Absent Post Op Complications Complications None Follow Up Care/Instructions Patient Instructions None needed. Anesthesia/Patient Condition Patient Condition Patient was seen after the procedure and she was doing well, no complaints, stable vital signs, no apparent adverse anesthesia problems. KELTON PEREZ DO Mar 10, 2018 15:19
== END 2018-03-10 15:15 | disposition home or self-care (01) ==
LOC: SDC 09:36
PROVIDERS: ATTEND Surgery
DX: C85.14 Unspecified B-cell lymphoma, lymph nodes of axilla and upper limb (principal); E11.9 Type 2 diabetes mellitus without complications; I10 Essential (primary) hypertension; Z79.4 Long term (current) use of insulin; Z79.899 Other long term (current) drug therapy
CPT/HCPCS: 82962; 87081; 94664

== ENCOUNTER 2018-05-27 12:30 | Outpatient (RCR) | payer MEDICARE, OTHER ==
[2018-04-08 12:34] LABS: BASOPHILS % (AUTO) 0 % (0-10); EOSINOPHILS # (AUTO) 0.1 10^3/uL (0.0-0.3); EOSINOPHILS % (AUTO) 2 % (0-10); HEMATOCRIT 36 % (35-52); HEMOGLOBIN 11.8 G/DL (11.5-16.0); LYMPHOCYTES # (AUTO) 0.8 X 10^3 (1.0-4.0); LYMPHOCYTES % (AUTO) 19 % (12-44); MEAN CORPUSCULAR HEMOGLOBIN 27 PG (25-34); MEAN CORPUSCULAR HGB CONC 33 G/DL (32-36); MEAN CORPUSCULAR VOLUME 83 FL (80-99); MEAN PLATELET VOLUME 10.6 FL (7.4-10.4); MONOCYTES # (AUTO) 0.3 X 10^3 (0.0-1.0); MONOCYTES % (AUTO) 7 % (0-12); NEUTROPHILS # (AUTO) 3.1 X 10^3 (1.8-7.8); NEUTROPHILS % (AUTO) 71 % (42-75); PLATELET COUNT 141 10^3/uL (130-400); RED CELL DISTRIBUTION WIDTH 15.1 % (10.0-14.5); WHITE BLOOD COUNT 4.3 10^3/uL (4.3-11.0)
[2018-04-08 12:54] LABS: ALBUMIN 4.2 GM/DL (3.2-4.5); BILIRUBIN,TOTAL 0.6 MG/DL (0.1-1.0); CREATININE SERUM 0.98 MG/DL (0.60-1.30); POTASSIUM 4.5 MMOL/L (3.6-5.0); TOTAL PROTEIN 6.4 GM/DL (6.4-8.2); URIC ACID 5.8 MG/DL (2.6-7.2)
[2018-04-09 08:07] LABS: HEPATITIS C ANTIBODY C Non-Reactive (Non-Reactive)
[2018-04-21 09:48] LABS: BASOPHILS % (AUTO) 0 % (0-10); EOSINOPHILS # (AUTO) 0.1 10^3/uL (0.0-0.3); EOSINOPHILS % (AUTO) 3 % (0-10); HEMATOCRIT 37 % (35-52); HEMOGLOBIN 12.1 G/DL (11.5-16.0); LYMPHOCYTES # (AUTO) 0.3 X 10^3 (1.0-4.0); LYMPHOCYTES % (AUTO) 7 % (12-44); MEAN CORPUSCULAR HEMOGLOBIN 28 PG (25-34); MEAN CORPUSCULAR HGB CONC 33 G/DL (32-36); MEAN CORPUSCULAR VOLUME 83 FL (80-99); MEAN PLATELET VOLUME 10.3 FL (7.4-10.4); MONOCYTES # (AUTO) 0.4 X 10^3 (0.0-1.0); MONOCYTES % (AUTO) 9 % (0-12); NEUTROPHILS # (AUTO) 3.6 X 10^3 (1.8-7.8); NEUTROPHILS % (AUTO) 81 % (42-75); PLATELET COUNT 150 10^3/uL (130-400); RED BLOOD COUNT 4.39 10^6/uL (4.35-5.85); RED CELL DISTRIBUTION WIDTH 14.9 % (10.0-14.5); WHITE BLOOD COUNT 4.5 10^3/uL (4.3-11.0)
[2018-04-21 10:08] LABS: BUN/CREATININE RATIO 22; CALCIUM 10.4 MG/DL (8.5-10.1); CARBON DIOXIDE 30 MMOL/L (21-32); CHLORIDE 103 MMOL/L (98-107); CREATININE SERUM 0.86 MG/DL (0.60-1.30); GFR ESTIMATED > 60; GLUCOSE 194 MG/DL (70-105); POTASSIUM 4.8 MMOL/L (3.6-5.0); SODIUM 138 MMOL/L (135-145)
[2018-04-29 13:04] LABS: BASOPHILS % (AUTO) 0 % (0-10); EOSINOPHILS # (AUTO) 0.1 10^3/uL (0.0-0.3); EOSINOPHILS % (AUTO) 2 % (0-10); HEMATOCRIT 35 % (35-52); HEMOGLOBIN 11.9 G/DL (11.5-16.0); LYMPHOCYTES # (AUTO) 0.7 X 10^3 (1.0-4.0); LYMPHOCYTES % (AUTO) 12 % (12-44); MEAN CORPUSCULAR HEMOGLOBIN 28 PG (25-34); MEAN CORPUSCULAR HGB CONC 34 G/DL (32-36); MEAN CORPUSCULAR VOLUME 83 FL (80-99); MONOCYTES # (AUTO) 0.6 X 10^3 (0.0-1.0); MONOCYTES % (AUTO) 10 % (0-12); NEUTROPHILS # (AUTO) 4.4 X 10^3 (1.8-7.8); NEUTROPHILS % (AUTO) 76 % (42-75); PLATELET COUNT 141 10^3/uL (130-400); RED BLOOD COUNT 4.25 10^6/uL (4.35-5.85); RED CELL DISTRIBUTION WIDTH 14.9 % (10.0-14.5); WHITE BLOOD COUNT 5.9 10^3/uL (4.3-11.0)
[2018-04-29 13:20] LABS: CALCIUM 10.3 MG/DL (8.5-10.1); CREATININE SERUM 1.13 MG/DL (0.60-1.30); POTASSIUM 4.2 MMOL/L (3.6-5.0)
[2018-05-06 11:29] LABS: BASOPHILS % (AUTO) 0 % (0-10); EOSINOPHILS # (AUTO) 0.1 10^3/uL (0.0-0.3); EOSINOPHILS % (AUTO) 3 % (0-10); HEMATOCRIT 34 % (35-52); HEMOGLOBIN 11.3 G/DL (11.5-16.0); LYMPHOCYTES # (AUTO) 0.5 X 10^3 (1.0-4.0); LYMPHOCYTES % (AUTO) 14 % (12-44); MEAN CORPUSCULAR HEMOGLOBIN 27 PG (25-34); MEAN CORPUSCULAR HGB CONC 33 G/DL (32-36); MEAN CORPUSCULAR VOLUME 82 FL (80-99); MEAN PLATELET VOLUME 9.9 FL (7.4-10.4); MONOCYTES # (AUTO) 0.4 X 10^3 (0.0-1.0); MONOCYTES % (AUTO) 10 % (0-12); NEUTROPHILS # (AUTO) 2.7 X 10^3 (1.8-7.8); NEUTROPHILS % (AUTO) 73 % (42-75); PLATELET COUNT 156 10^3/uL (130-400); RED BLOOD COUNT 4.14 10^6/uL (4.35-5.85); RED CELL DISTRIBUTION WIDTH 14.8 % (10.0-14.5); WHITE BLOOD COUNT 3.7 10^3/uL (4.3-11.0)
[2018-05-06 11:45] LABS: BUN/CREATININE RATIO 20; CALCIUM 9.7 MG/DL (8.5-10.1); CARBON DIOXIDE 24 MMOL/L (21-32); CHLORIDE 104 MMOL/L (98-107); CREATININE SERUM 0.87 MG/DL (0.60-1.30); GFR ESTIMATED > 60; GLUCOSE 197 MG/DL (70-105); POTASSIUM 3.9 MMOL/L (3.6-5.0); SODIUM 136 MMOL/L (135-145)
[2018-05-12 12:55] LABS: BASOPHILS % (AUTO) 1 % (0-10); EOSINOPHILS # (AUTO) 0.2 10^3/uL (0.0-0.3); EOSINOPHILS % (AUTO) 4 % (0-10); HEMATOCRIT 35 % (35-52); HEMOGLOBIN 11.8 G/DL (11.5-16.0); LYMPHOCYTES # (AUTO) 0.6 X 10^3 (1.0-4.0); LYMPHOCYTES % (AUTO) 12 % (12-44); MEAN CORPUSCULAR HEMOGLOBIN 28 PG (25-34); MEAN CORPUSCULAR HGB CONC 34 G/DL (32-36); MEAN CORPUSCULAR VOLUME 82 FL (80-99); MEAN PLATELET VOLUME 10.1 FL (7.4-10.4); MONOCYTES # (AUTO) 0.5 X 10^3 (0.0-1.0); MONOCYTES % (AUTO) 10 % (0-12); NEUTROPHILS # (AUTO) 3.4 X 10^3 (1.8-7.8); NEUTROPHILS % (AUTO) 73 % (42-75); PLATELET COUNT 143 10^3/uL (130-400); RED BLOOD COUNT 4.27 10^6/uL (4.35-5.85); RED CELL DISTRIBUTION WIDTH 14.9 % (10.0-14.5); WHITE BLOOD COUNT 4.6 10^3/uL (4.3-11.0)
[2018-05-12 13:12] LABS: ALANINE AMINOTRANSFERASE 14 U/L (0-55); ALBUMIN 4.1 GM/DL (3.2-4.5); ALKALINE PHOSPHATASE 61 U/L (40-136); BILIRUBIN,TOTAL 0.6 MG/DL (0.1-1.0); BUN/CREATININE RATIO 26; CALCIUM 9.7 MG/DL (8.5-10.1); CARBON DIOXIDE 24 MMOL/L (21-32); CHLORIDE 105 MMOL/L (98-107); CREATININE SERUM 0.85 MG/DL (0.60-1.30); GFR ESTIMATED > 60; GLUCOSE 196 MG/DL (70-105); POTASSIUM 4.2 MMOL/L (3.6-5.0); SODIUM 137 MMOL/L (135-145); TOTAL PROTEIN 6.7 GM/DL (6.4-8.2)
[2018-05-20 12:38] LABS: BASOPHILS % (AUTO) 0 % (0-10); EOSINOPHILS # (AUTO) 0.2 10^3/uL (0.0-0.3); EOSINOPHILS % (AUTO) 5 % (0-10); HEMATOCRIT 33 % (35-52); HEMOGLOBIN 11.2 G/DL (11.5-16.0); LYMPHOCYTES # (AUTO) 0.2 X 10^3 (1.0-4.0); LYMPHOCYTES % (AUTO) 5 % (12-44); MEAN CORPUSCULAR HEMOGLOBIN 29 PG (25-34); MEAN CORPUSCULAR HGB CONC 34 G/DL (32-36); MEAN CORPUSCULAR VOLUME 83 FL (80-99); MONOCYTES # (AUTO) 0.4 X 10^3 (0.0-1.0); MONOCYTES % (AUTO) 11 % (0-12); NEUTROPHILS % (AUTO) 79 % (42-75); PLATELET COUNT 104 10^3/uL (130-400); RED BLOOD COUNT 3.92 10^6/uL (4.35-5.85); RED CELL DISTRIBUTION WIDTH 14.9 % (10.0-14.5); WHITE BLOOD COUNT 3.7 10^3/uL (4.3-11.0)
[2018-05-20 12:47] LABS: CALCIUM 9.4 MG/DL (8.5-10.1); CREATININE SERUM 0.97 MG/DL (0.60-1.30); POTASSIUM 4.5 MMOL/L (3.6-5.0)
[~2018-05-27] VITALS: Ht 176.5 cm; Wt 95.3 kg
[~2018-05-27 12:30] MED LIST changes: +ACETAMINOPHEN 325 MG TAB (TYLENOL) CANCER CTR PO PRN; +BENDAMUSTINE HCL 180 MG in NS (IVPB) CANCER CENTER 50 ML IV SCH; +MEPERIDINE (DEMEROL) INJ 50 MG/ML CANCER CTR IV PRN; +METF-397 PO; -METF500T5 PO; +NS IV 1000 ML (CANCER CTR) IV SCH; +ONDANSETRON MDV (CANCER CENTER 16 MG, DEXAMETHASONE INJECTION 10 MG in NS (IVPB) CANCER... IV SCH; +PALONOSETRON HCL 0.25 MG, DEXAMETHASONE INJECTION 10 MG in NS (IVPB) CANCER CENTER 50 ML IV SCH; +diphenhydrAMINE 25 MG TAB (BENADRYL) CANCER CENTER PO SCH; +riTUXimab 500 MG, riTUXimab FOR IV INJ CONC 300 MG in NS (IVPB) CANCER CENTER 186 ML IV SCH
[2018-05-27 12:45] LABS: BASOPHILS % (AUTO) 0 % (0-10); EOSINOPHILS # (AUTO) 0.1 10^3/uL (0.0-0.3); EOSINOPHILS % (AUTO) 3 % (0-10); HEMATOCRIT 33 % (35-52); HEMOGLOBIN 11.1 G/DL (11.5-16.0); LYMPHOCYTES # (AUTO) 0.3 X 10^3 (1.0-4.0); LYMPHOCYTES % (AUTO) 8 % (12-44); MEAN CORPUSCULAR HEMOGLOBIN 28 PG (25-34); MEAN CORPUSCULAR HGB CONC 34 G/DL (32-36); MEAN CORPUSCULAR VOLUME 82 FL (80-99); MEAN PLATELET VOLUME 10.1 FL (7.4-10.4); MONOCYTES # (AUTO) 0.5 X 10^3 (0.0-1.0); MONOCYTES % (AUTO) 11 % (0-12); NEUTROPHILS # (AUTO) 3.1 X 10^3 (1.8-7.8); NEUTROPHILS % (AUTO) 78 % (42-75); PLATELET COUNT 139 10^3/uL (130-400); RED BLOOD COUNT 3.98 10^6/uL (4.35-5.85); RED CELL DISTRIBUTION WIDTH 15.2 % (10.0-14.5); WHITE BLOOD COUNT 4.1 10^3/uL (4.3-11.0)
[2018-05-27 13:04] LABS: CALCIUM 9.1 MG/DL (8.5-10.1); CREATININE SERUM 0.91 MG/DL (0.60-1.30); POTASSIUM 3.9 MMOL/L (3.6-5.0)
== END 2018-06-03 11:18 | disposition home or self-care (01) ==
LOC: ONC 12:30
PROVIDERS: ATTEND Internal Medicine Hematology & Oncology
DX: Z51.11 Encounter for antineoplastic chemotherapy (principal); C82.98 Follicular lymphoma, unspecified, lymph nodes of multiple sites; E11.9 Type 2 diabetes mellitus without complications; I10 Essential (primary) hypertension; E78.5 Hyperlipidemia, unspecified; E03.9 Hypothyroidism, unspecified; K21.9 Gastro-esophageal reflux disease without esophagitis; M19.91 Primary osteoarthritis, unspecified site; I73.9 Peripheral vascular disease, unspecified; E66.9 Obesity, unspecified; Z68.31 Body mass index [BMI] 31.0-31.9, adult; Z79.4 Long term (current) use of insulin; Z79.899 Other long term (current) drug therapy
CPT/HCPCS: 36415; 36591; 80048; 80053; 80074; 82232; 82784; 83615; 84155; 84165; 84550; 85025; 96375; 96409; 96411; 96413; 96415; 99213

== ENCOUNTER → 2018-09-01 | Outpatient (RCR) | payer MEDICARE, OTHER ==
[2018-06-03 11:36] LABS: BASOPHILS % (AUTO) 1 % (0-10); EOSINOPHILS # (AUTO) 0.1 10^3/uL (0.0-0.3); EOSINOPHILS % (AUTO) 3 % (0-10); HEMATOCRIT 33 % (35-52); HEMOGLOBIN 11.3 G/DL (11.5-16.0); LYMPHOCYTES # (AUTO) 0.5 X 10^3 (1.0-4.0); LYMPHOCYTES % (AUTO) 11 % (12-44); MEAN CORPUSCULAR HEMOGLOBIN 28 PG (25-34); MEAN CORPUSCULAR HGB CONC 34 G/DL (32-36); MEAN CORPUSCULAR VOLUME 83 FL (80-99); MEAN PLATELET VOLUME 10.4 FL (7.4-10.4); MONOCYTES # (AUTO) 0.5 X 10^3 (0.0-1.0); MONOCYTES % (AUTO) 12 % (0-12); NEUTROPHILS # (AUTO) 3.1 X 10^3 (1.8-7.8); NEUTROPHILS % (AUTO) 73 % (42-75); PLATELET COUNT 149 10^3/uL (130-400); RED CELL DISTRIBUTION WIDTH 14.9 % (10.0-14.5); WHITE BLOOD COUNT 4.3 10^3/uL (4.3-11.0)
[2018-06-03 11:53] LABS: CALCIUM 9.6 MG/DL (8.5-10.1); CREATININE SERUM 0.93 MG/DL (0.60-1.30); POTASSIUM 4.1 MMOL/L (3.6-5.0)
[2018-06-09 13:06] LABS: BASOPHILS % (AUTO) 0 % (0-10); EOSINOPHILS # (AUTO) 0.2 10^3/uL (0.0-0.3); EOSINOPHILS % (AUTO) 3 % (0-10); HEMATOCRIT 34 % (35-52); HEMOGLOBIN 11.5 G/DL (11.5-16.0); LYMPHOCYTES # (AUTO) 0.6 X 10^3 (1.0-4.0); LYMPHOCYTES % (AUTO) 11 % (12-44); MEAN CORPUSCULAR HEMOGLOBIN 28 PG (25-34); MEAN CORPUSCULAR HGB CONC 34 G/DL (32-36); MEAN CORPUSCULAR VOLUME 82 FL (80-99); MEAN PLATELET VOLUME 10.6 FL (7.4-10.4); MONOCYTES # (AUTO) 0.5 X 10^3 (0.0-1.0); MONOCYTES % (AUTO) 11 % (0-12); NEUTROPHILS # (AUTO) 3.7 X 10^3 (1.8-7.8); NEUTROPHILS % (AUTO) 75 % (42-75); PLATELET COUNT 129 10^3/uL (130-400); RED BLOOD COUNT 4.15 10^6/uL (4.35-5.85); RED CELL DISTRIBUTION WIDTH 15.2 % (10.0-14.5); WHITE BLOOD COUNT 4.9 10^3/uL (4.3-11.0)
[2018-06-09 13:26] LABS: ALBUMIN 4.1 GM/DL (3.2-4.5); BILIRUBIN,TOTAL 0.6 MG/DL (0.1-1.0); CALCIUM 9.6 MG/DL (8.5-10.1); CREATININE SERUM 0.98 MG/DL (0.60-1.30); POTASSIUM 4.1 MMOL/L (3.6-5.0); TOTAL PROTEIN 6.8 GM/DL (6.4-8.2)
[2018-06-17 13:18] LABS: BASOPHILS % (AUTO) 1 % (0-10); EOSINOPHILS # (AUTO) 0.1 10^3/uL (0.0-0.3); EOSINOPHILS % (AUTO) 3 % (0-10); HEMATOCRIT 33 % (35-52); LYMPHOCYTES # (AUTO) 0.3 X 10^3 (1.0-4.0); LYMPHOCYTES % (AUTO) 7 % (12-44); MEAN CORPUSCULAR HEMOGLOBIN 28 PG (25-34); MEAN CORPUSCULAR HGB CONC 33 G/DL (32-36); MEAN CORPUSCULAR VOLUME 83 FL (80-99); MEAN PLATELET VOLUME 10.5 FL (7.4-10.4); MONOCYTES # (AUTO) 0.6 X 10^3 (0.0-1.0); MONOCYTES % (AUTO) 14 % (0-12); NEUTROPHILS # (AUTO) 3.2 X 10^3 (1.8-7.8); NEUTROPHILS % (AUTO) 75 % (42-75); PLATELET COUNT 129 10^3/uL (130-400); RED BLOOD COUNT 3.98 10^6/uL (4.35-5.85); RED CELL DISTRIBUTION WIDTH 15.3 % (10.0-14.5); WHITE BLOOD COUNT 4.3 10^3/uL (4.3-11.0)
[2018-06-17 13:40] LABS: CALCIUM 9.2 MG/DL (8.5-10.1); CREATININE SERUM 0.97 MG/DL (0.60-1.30); POTASSIUM 4.1 MMOL/L (3.6-5.0)
[2018-06-24 13:20] LABS: BASOPHILS % (AUTO) 1 % (0-10); EOSINOPHILS # (AUTO) 0.1 10^3/uL (0.0-0.3); EOSINOPHILS % (AUTO) 3 % (0-10); HEMATOCRIT 34 % (35-52); HEMOGLOBIN 11.2 G/DL (11.5-16.0); LYMPHOCYTES # (AUTO) 0.4 X 10^3 (1.0-4.0); LYMPHOCYTES % (AUTO) 11 % (12-44); MEAN CORPUSCULAR HEMOGLOBIN 28 PG (25-34); MEAN CORPUSCULAR HGB CONC 33 G/DL (32-36); MEAN CORPUSCULAR VOLUME 83 FL (80-99); MEAN PLATELET VOLUME 10.7 FL (7.4-10.4); MONOCYTES # (AUTO) 0.6 X 10^3 (0.0-1.0); MONOCYTES % (AUTO) 16 % (0-12); NEUTROPHILS # (AUTO) 2.7 X 10^3 (1.8-7.8); NEUTROPHILS % (AUTO) 70 % (42-75); PLATELET COUNT 151 10^3/uL (130-400); RED BLOOD COUNT 4.08 10^6/uL (4.35-5.85); RED CELL DISTRIBUTION WIDTH 15.4 % (10.0-14.5); WHITE BLOOD COUNT 3.8 10^3/uL (4.3-11.0)
[2018-06-24 13:41] LABS: CALCIUM 9.4 MG/DL (8.5-10.1); CREATININE SERUM 0.97 MG/DL (0.60-1.30); POTASSIUM 3.9 MMOL/L (3.6-5.0)
[2018-07-01 12:25] LABS: BASOPHILS % (AUTO) 1 % (0-10); EOSINOPHILS # (AUTO) 0.1 10^3/uL (0.0-0.3); EOSINOPHILS % (AUTO) 4 % (0-10); HEMATOCRIT 34 % (35-52); HEMOGLOBIN 11.4 G/DL (11.5-16.0); LYMPHOCYTES # (AUTO) 0.5 X 10^3 (1.0-4.0); LYMPHOCYTES % (AUTO) 13 % (12-44); MEAN CORPUSCULAR HEMOGLOBIN 28 PG (25-34); MEAN CORPUSCULAR HGB CONC 34 G/DL (32-36); MEAN CORPUSCULAR VOLUME 83 FL (80-99); MEAN PLATELET VOLUME 10.1 FL (7.4-10.4); MONOCYTES # (AUTO) 0.5 X 10^3 (0.0-1.0); MONOCYTES % (AUTO) 14 % (0-12); NEUTROPHILS # (AUTO) 2.6 X 10^3 (1.8-7.8); NEUTROPHILS % (AUTO) 70 % (42-75); PLATELET COUNT 135 10^3/uL (130-400); RED CELL DISTRIBUTION WIDTH 15.4 % (10.0-14.5); WHITE BLOOD COUNT 3.8 10^3/uL (4.3-11.0)
[2018-07-01 12:44] LABS: CREATININE SERUM 0.93 MG/DL (0.60-1.30); POTASSIUM 4.4 MMOL/L (3.6-5.0)
[2018-07-07 11:34] LABS: BASOPHILS % (AUTO) 0 % (0-10); EOSINOPHILS # (AUTO) 0.2 10^3/uL (0.0-0.3); EOSINOPHILS % (AUTO) 4 % (0-10); HEMATOCRIT 33 % (35-52); HEMOGLOBIN 11.1 G/DL (11.5-16.0); LYMPHOCYTES # (AUTO) 0.5 X 10^3 (1.0-4.0); LYMPHOCYTES % (AUTO) 15 % (12-44); MEAN CORPUSCULAR HEMOGLOBIN 27 PG (25-34); MEAN CORPUSCULAR HGB CONC 33 G/DL (32-36); MEAN CORPUSCULAR VOLUME 82 FL (80-99); MEAN PLATELET VOLUME 10.4 FL (7.4-10.4); MONOCYTES # (AUTO) 0.4 X 10^3 (0.0-1.0); MONOCYTES % (AUTO) 11 % (0-12); NEUTROPHILS # (AUTO) 2.3 X 10^3 (1.8-7.8); NEUTROPHILS % (AUTO) 69 % (42-75); PLATELET COUNT 124 10^3/uL (130-400); RED BLOOD COUNT 4.06 10^6/uL (4.35-5.85); RED CELL DISTRIBUTION WIDTH 15.2 % (10.0-14.5); WHITE BLOOD COUNT 3.4 10^3/uL (4.3-11.0)
[2018-07-07 11:57] LABS: ALANINE AMINOTRANSFERASE 19 U/L (0-55); ALKALINE PHOSPHATASE 79 U/L (40-136); BILIRUBIN,TOTAL 0.5 MG/DL (0.1-1.0); BUN/CREATININE RATIO 23; CALCIUM 9.6 MG/DL (8.5-10.1); CARBON DIOXIDE 23 MMOL/L (21-32); CHLORIDE 105 MMOL/L (98-107); CREATININE SERUM 0.88 MG/DL (0.60-1.30); GFR ESTIMATED > 60; GLUCOSE 235 MG/DL (70-105); POTASSIUM 4.5 MMOL/L (3.6-5.0); SODIUM 136 MMOL/L (135-145); TOTAL PROTEIN 6.5 GM/DL (6.4-8.2)
[2018-07-15 12:14] LABS: BASOPHILS % (AUTO) 0 % (0-10); EOSINOPHILS # (AUTO) 0.1 10^3/uL (0.0-0.3); EOSINOPHILS % (AUTO) 4 % (0-10); HEMATOCRIT 33 % (35-52); HEMOGLOBIN 11.1 G/DL (11.5-16.0); LYMPHOCYTES # (AUTO) 0.2 X 10^3 (1.0-4.0); LYMPHOCYTES % (AUTO) 7 % (12-44); MEAN CORPUSCULAR HEMOGLOBIN 28 PG (25-34); MEAN CORPUSCULAR HGB CONC 33 G/DL (32-36); MEAN CORPUSCULAR VOLUME 83 FL (80-99); MEAN PLATELET VOLUME 10.7 FL (7.4-10.4); MONOCYTES # (AUTO) 0.4 X 10^3 (0.0-1.0); MONOCYTES % (AUTO) 15 % (0-12); NEUTROPHILS # (AUTO) 2.2 X 10^3 (1.8-7.8); NEUTROPHILS % (AUTO) 74 % (42-75); PLATELET COUNT 115 10^3/uL (130-400); RED BLOOD COUNT 4.01 10^6/uL (4.35-5.85)
[2018-07-15 12:36] LABS: BUN/CREATININE RATIO 23; CALCIUM 9.4 MG/DL (8.5-10.1); CARBON DIOXIDE 27 MMOL/L (21-32); CHLORIDE 103 MMOL/L (98-107); CREATININE SERUM 0.83 MG/DL (0.60-1.30); GFR ESTIMATED > 60; GLUCOSE 187 MG/DL (70-105); POTASSIUM 4.1 MMOL/L (3.6-5.0); SODIUM 138 MMOL/L (135-145)
[2018-07-21 11:19] LABS: BASOPHILS % (AUTO) 0 % (0-10); EOSINOPHILS # (AUTO) 0.1 10^3/uL (0.0-0.3); EOSINOPHILS % (AUTO) 3 % (0-10); HEMATOCRIT 33 % (35-52); HEMOGLOBIN 10.7 G/DL (11.5-16.0); LYMPHOCYTES # (AUTO) 0.4 X 10^3 (1.0-4.0); LYMPHOCYTES % (AUTO) 15 % (12-44); MEAN CORPUSCULAR HEMOGLOBIN 27 PG (25-34); MEAN CORPUSCULAR HGB CONC 32 G/DL (32-36); MEAN CORPUSCULAR VOLUME 84 FL (80-99); MEAN PLATELET VOLUME 10.3 FL (7.4-10.4); MONOCYTES # (AUTO) 0.4 X 10^3 (0.0-1.0); MONOCYTES % (AUTO) 13 % (0-12); NEUTROPHILS % (AUTO) 69 % (42-75); PLATELET COUNT 133 10^3/uL (130-400); RED BLOOD COUNT 3.94 10^6/uL (4.35-5.85); RED CELL DISTRIBUTION WIDTH 15.4 % (10.0-14.5); WHITE BLOOD COUNT 2.9 10^3/uL (4.3-11.0)
[2018-07-21 11:41] LABS: BUN/CREATININE RATIO 24; CALCIUM 9.6 MG/DL (8.5-10.1); CARBON DIOXIDE 27 MMOL/L (21-32); CHLORIDE 106 MMOL/L (98-107); CREATININE SERUM 0.85 MG/DL (0.60-1.30); GFR ESTIMATED > 60; GLUCOSE 143 MG/DL (70-105); POTASSIUM 4.6 MMOL/L (3.6-5.0); SODIUM 139 MMOL/L (135-145)
[2018-07-29 13:32] LABS: BASOPHILS % (AUTO) 1 % (0-10); EOSINOPHILS # (AUTO) 0.1 10^3/uL (0.0-0.3); EOSINOPHILS % (AUTO) 3 % (0-10); HEMATOCRIT 35 % (35-52); HEMOGLOBIN 11.7 G/DL (11.5-16.0); LYMPHOCYTES # (AUTO) 0.5 X 10^3 (1.0-4.0); LYMPHOCYTES % (AUTO) 16 % (12-44); MEAN CORPUSCULAR HEMOGLOBIN 28 PG (25-34); MEAN CORPUSCULAR HGB CONC 33 G/DL (32-36); MEAN CORPUSCULAR VOLUME 84 FL (80-99); MEAN PLATELET VOLUME 10.4 FL (7.4-10.4); MONOCYTES # (AUTO) 0.4 X 10^3 (0.0-1.0); MONOCYTES % (AUTO) 13 % (0-12); NEUTROPHILS # (AUTO) 2.2 X 10^3 (1.8-7.8); NEUTROPHILS % (AUTO) 68 % (42-75); PLATELET COUNT 147 10^3/uL (130-400); RED BLOOD COUNT 4.21 10^6/uL (4.35-5.85); RED CELL DISTRIBUTION WIDTH 15.5 % (10.0-14.5); WHITE BLOOD COUNT 3.2 10^3/uL (4.3-11.0)
[2018-07-29 13:47] LABS: CALCIUM 10.1 MG/DL (8.5-10.1); CREATININE SERUM 0.95 MG/DL (0.60-1.30); POTASSIUM 4.5 MMOL/L (3.6-5.0)
[2018-08-04 10:38] LABS: BASOPHILS % (AUTO) 0 % (0-10); EOSINOPHILS # (AUTO) 0.1 10^3/uL (0.0-0.3); EOSINOPHILS % (AUTO) 2 % (0-10); HEMATOCRIT 34 % (35-52); HEMOGLOBIN 11.3 G/DL (11.5-16.0); LYMPHOCYTES # (AUTO) 0.4 X 10^3 (1.0-4.0); LYMPHOCYTES % (AUTO) 14 % (12-44); MEAN CORPUSCULAR HEMOGLOBIN 28 PG (25-34); MEAN CORPUSCULAR HGB CONC 33 G/DL (32-36); MEAN CORPUSCULAR VOLUME 83 FL (80-99); MEAN PLATELET VOLUME 10.1 FL (7.4-10.4); MONOCYTES # (AUTO) 0.4 X 10^3 (0.0-1.0); MONOCYTES % (AUTO) 14 % (0-12); NEUTROPHILS % (AUTO) 69 % (42-75); PLATELET COUNT 118 10^3/uL (130-400); RED BLOOD COUNT 4.11 10^6/uL (4.35-5.85); RED CELL DISTRIBUTION WIDTH 15.1 % (10.0-14.5); WHITE BLOOD COUNT 2.9 10^3/uL (4.3-11.0)
[2018-08-04 10:52] LABS: ALANINE AMINOTRANSFERASE 19 U/L (0-55); ALKALINE PHOSPHATASE 89 U/L (40-136); BILIRUBIN,TOTAL 0.4 MG/DL (0.1-1.0); BUN/CREATININE RATIO 23; CARBON DIOXIDE 27 MMOL/L (21-32); CHLORIDE 104 MMOL/L (98-107); CREATININE SERUM 0.83 MG/DL (0.60-1.30); GFR ESTIMATED > 60; GLUCOSE 179 MG/DL (70-105); POTASSIUM 4.5 MMOL/L (3.6-5.0); SODIUM 138 MMOL/L (135-145); TOTAL PROTEIN 6.5 GM/DL (6.4-8.2)
[2018-08-12 13:29] LABS: BASOPHILS % (AUTO) 1 % (0-10); EOSINOPHILS # (AUTO) 0.1 10^3/uL (0.0-0.3); EOSINOPHILS % (AUTO) 3 % (0-10); HEMATOCRIT 34 % (35-52); HEMOGLOBIN 11.4 G/DL (11.5-16.0); LYMPHOCYTES # (AUTO) 0.2 X 10^3 (1.0-4.0); LYMPHOCYTES % (AUTO) 8 % (12-44); MEAN CORPUSCULAR HEMOGLOBIN 28 PG (25-34); MEAN CORPUSCULAR HGB CONC 33 G/DL (32-36); MEAN CORPUSCULAR VOLUME 84 FL (80-99); MEAN PLATELET VOLUME 10.5 FL (7.4-10.4); MONOCYTES # (AUTO) 0.4 X 10^3 (0.0-1.0); MONOCYTES % (AUTO) 14 % (0-12); NEUTROPHILS # (AUTO) 2.2 X 10^3 (1.8-7.8); NEUTROPHILS % (AUTO) 74 % (42-75); PLATELET COUNT 132 10^3/uL (130-400); RED BLOOD COUNT 4.08 10^6/uL (4.35-5.85); RED CELL DISTRIBUTION WIDTH 15.1 % (10.0-14.5); WHITE BLOOD COUNT 2.9 10^3/uL (4.3-11.0)
[2018-08-12 13:49] LABS: BUN/CREATININE RATIO 21; CALCIUM 9.9 MG/DL (8.5-10.1); CARBON DIOXIDE 25 MMOL/L (21-32); CHLORIDE 104 MMOL/L (98-107); CREATININE SERUM 0.89 MG/DL (0.60-1.30); GFR ESTIMATED > 60; GLUCOSE 211 MG/DL (70-105); POTASSIUM 4.2 MMOL/L (3.6-5.0); SODIUM 139 MMOL/L (135-145)
[2018-08-19 13:14] LABS: BASOPHILS % (AUTO) 0 % (0-10); EOSINOPHILS # (AUTO) 0.1 10^3/uL (0.0-0.3); EOSINOPHILS % (AUTO) 3 % (0-10); HEMATOCRIT 32 % (35-52); HEMOGLOBIN 10.9 G/DL (11.5-16.0); LYMPHOCYTES # (AUTO) 0.4 X 10^3 (1.0-4.0); LYMPHOCYTES % (AUTO) 15 % (12-44); MEAN CORPUSCULAR HEMOGLOBIN 28 PG (25-34); MEAN CORPUSCULAR HGB CONC 34 G/DL (32-36); MEAN CORPUSCULAR VOLUME 83 FL (80-99); MEAN PLATELET VOLUME 10.3 FL (7.4-10.4); MONOCYTES # (AUTO) 0.5 X 10^3 (0.0-1.0); MONOCYTES % (AUTO) 16 % (0-12); NEUTROPHILS # (AUTO) 1.8 X 10^3 (1.8-7.8); NEUTROPHILS % (AUTO) 66 % (42-75); PLATELET COUNT 134 10^3/uL (130-400); RED BLOOD COUNT 3.91 10^6/uL (4.35-5.85); RED CELL DISTRIBUTION WIDTH 15.2 % (10.0-14.5); WHITE BLOOD COUNT 2.8 10^3/uL (4.3-11.0)
[2018-08-19 13:32] LABS: BUN/CREATININE RATIO 20; CALCIUM 9.5 MG/DL (8.5-10.1); CARBON DIOXIDE 26 MMOL/L (21-32); CHLORIDE 104 MMOL/L (98-107); CREATININE SERUM 0.88 MG/DL (0.60-1.30); GFR ESTIMATED > 60; GLUCOSE 233 MG/DL (70-105); POTASSIUM 4.5 MMOL/L (3.6-5.0); SODIUM 138 MMOL/L (135-145)
[2018-08-26 10:02] LABS: BASOPHILS % (AUTO) 0 % (0-10); EOSINOPHILS # (AUTO) 0.1 10^3/uL (0.0-0.3); EOSINOPHILS % (AUTO) 2 % (0-10); HEMATOCRIT 32 % (35-52); HEMOGLOBIN 10.7 G/DL (11.5-16.0); LYMPHOCYTES # (AUTO) 0.3 X 10^3 (1.0-4.0); LYMPHOCYTES % (AUTO) 15 % (12-44); MEAN CORPUSCULAR HEMOGLOBIN 28 PG (25-34); MEAN CORPUSCULAR HGB CONC 34 G/DL (32-36); MEAN CORPUSCULAR VOLUME 84 FL (80-99); MONOCYTES # (AUTO) 0.3 X 10^3 (0.0-1.0); MONOCYTES % (AUTO) 13 % (0-12); NEUTROPHILS # (AUTO) 1.6 X 10^3 (1.8-7.8); NEUTROPHILS % (AUTO) 70 % (42-75); PLATELET COUNT 111 10^3/uL (130-400); RED BLOOD COUNT 3.78 10^6/uL (4.35-5.85); RED CELL DISTRIBUTION WIDTH 15.4 % (10.0-14.5); WHITE BLOOD COUNT 2.4 10^3/uL (4.3-11.0)
[2018-08-26 10:21] LABS: BUN/CREATININE RATIO 18; CALCIUM 9.5 MG/DL (8.5-10.1); CARBON DIOXIDE 26 MMOL/L (21-32); CHLORIDE 106 MMOL/L (98-107); CREATININE SERUM 0.87 MG/DL (0.60-1.30); GFR ESTIMATED > 60; GLUCOSE 235 MG/DL (70-105); POTASSIUM 4.5 MMOL/L (3.6-5.0); SODIUM 139 MMOL/L (135-145)
[~2018-09-01] VITALS: Ht 176.5 cm; Wt 96.2 kg
[2018-09-01 13:30] LABS: BASOPHILS % (AUTO) 0 % (0-10); EOSINOPHILS # (AUTO) 0.1 10^3/uL (0.0-0.3); EOSINOPHILS % (AUTO) 3 % (0-10); HEMATOCRIT 33 % (35-52); HEMOGLOBIN 11.1 G/DL (11.5-16.0); LYMPHOCYTES # (AUTO) 0.5 X 10^3 (1.0-4.0); LYMPHOCYTES % (AUTO) 17 % (12-44); MEAN CORPUSCULAR HEMOGLOBIN 28 PG (25-34); MEAN CORPUSCULAR HGB CONC 34 G/DL (32-36); MEAN CORPUSCULAR VOLUME 84 FL (80-99); MEAN PLATELET VOLUME 10.3 FL (7.4-10.4); MONOCYTES # (AUTO) 0.5 X 10^3 (0.0-1.0); MONOCYTES % (AUTO) 18 % (0-12); NEUTROPHILS # (AUTO) 1.7 X 10^3 (1.8-7.8); NEUTROPHILS % (AUTO) 62 % (42-75); PLATELET COUNT 106 10^3/uL (130-400); RED BLOOD COUNT 3.93 10^6/uL (4.35-5.85); RED CELL DISTRIBUTION WIDTH 15.6 % (10.0-14.5); WHITE BLOOD COUNT 2.7 10^3/uL (4.3-11.0)
[2018-09-01 13:52] LABS: ALBUMIN 4.1 GM/DL (3.2-4.5); BILIRUBIN,TOTAL 0.5 MG/DL (0.1-1.0); CALCIUM 9.8 MG/DL (8.5-10.1); CREATININE SERUM 0.99 MG/DL (0.60-1.30); POTASSIUM 4.4 MMOL/L (3.6-5.0); TOTAL PROTEIN 6.7 GM/DL (6.4-8.2)
== END | disposition home or self-care (01) ==
LOC: ONC 06-03 11:21
PROVIDERS: ATTEND Internal Medicine Hematology & Oncology
DX: Z51.11 Encounter for antineoplastic chemotherapy (principal); C82.98 Follicular lymphoma, unspecified, lymph nodes of multiple sites; E11.9 Type 2 diabetes mellitus without complications; I10 Essential (primary) hypertension; E78.5 Hyperlipidemia, unspecified; E03.9 Hypothyroidism, unspecified; K21.9 Gastro-esophageal reflux disease without esophagitis; M19.91 Primary osteoarthritis, unspecified site; I73.9 Peripheral vascular disease, unspecified; E66.9 Obesity, unspecified; Z68.31 Body mass index [BMI] 31.0-31.9, adult; Z79.4 Long term (current) use of insulin; Z79.899 Other long term (current) drug therapy
CPT/HCPCS: 36415; 36591; 80048; 80053; 83615; 85025; 96375; 96409; 96411; 96413; J9310; J9312

== ENCOUNTER → 2018-09-22 | Outpatient (CLI) | payer MEDICARE, OTHER ==
[~2018-09-22] MED LIST changes: -ACETAMINOPHEN 325 MG TAB (TYLENOL) CANCER CTR PO PRN; +BARIUM SUSPENSION 2.1% (VANILLA SILQ) 450 ML PO ONE; -BENDAMUSTINE HCL 180 MG in NS (IVPB) CANCER CENTER 50 ML IV SCH; +IOHEXOL 350 MG/ML 100 ML (OMNIPAQUE 350) VIAL IV ONE; -MEPERIDINE (DEMEROL) INJ 50 MG/ML CANCER CTR IV PRN; +NS 100 ML (IVPB) BAG IV ONE; -NS IV 1000 ML (CANCER CTR) IV SCH; -ONDANSETRON MDV (CANCER CENTER 16 MG, DEXAMETHASONE INJECTION 10 MG in NS (IVPB) CANCER... IV SCH; -PALONOSETRON HCL 0.25 MG, DEXAMETHASONE INJECTION 10 MG in NS (IVPB) CANCER CENTER 50 ML IV SCH; +RECEIVED CONTRAST (Hold Metformin) IV SCH; -diphenhydrAMINE 25 MG TAB (BENADRYL) CANCER CENTER PO SCH; -riTUXimab 500 MG, riTUXimab FOR IV INJ CONC 300 MG in NS (IVPB) CANCER CENTER 186 ML IV SCH
--- NOTE | 2018-09-22 13:19 | Diagnostic Imaging Report ---
INDICATION: Lymphoma. TECHNIQUE: CT chest, abdomen and pelvis obtained with a post IV contrast CT of the chest with pre-and post IV contrast CT of the abdomen and pelvis. COMPARISON: There is no prior CT study for comparison. CT CHEST FINDINGS: Port-A-Cath is seen over the right chest with catheter entering the right internal jugular vein. There are no enlarged mediastinal or hilar nodes. There are coronary artery calcifications. There appear to be some surgical clips in the left axilla. There are no appreciably enlarged nodes in the axilla, there are a few scattered subcentimeter nodes in both axillary regions. There is no chest wall lesion. There is no pleural or pericardial fluid. Lung parenchymal windows demonstrate no pulmonary parenchymal lesions. CT ABDOMEN AND PELVIS FINDINGS: The liver appears unremarkable. The gallbladder shows a few small stones posteriorly without gallbladder distention. The spleen is mildly enlarged measuring up to 13.5 cm. The adrenals and pancreas appear normal. The kidneys bilaterally show no hydronephrosis. There is a small nonocclusive stone in the lower pole of the right kidney. There is a larger nonocclusive stone in the upper pole of the right kidney with area of cortical scarring in the right kidney superiorly. There is no retroperitoneal adenopathy or mass. There is no ascites or abnormal fluid collection. There is no pelvic mass or lymphadenopathy. There is moderate stool throughout the colon with colonic diverticulosis. There is no overt bowel obstruction. There is a small ventral hernia in the midline in the periumbilical region containing fat. IMPRESSION: 1. CT chest demonstrates evidence of previous surgical clips in the left axilla. There are no enlarged nodes in the mediastinum or devin or axillary regions. There is no pleural fluid or pulmonary parenchymal lesion. There are coronary artery calcifications compatible with coronary artery disease. Port-A-Cath is in place as above. 2. CT of the abdomen and pelvis demonstrates no overt mass or adenopathy. There are incidental gallstones. There are nonocclusive stones in the right kidney with cortical scarring in the right kidney superiorly. There is a small ventral hernia containing fat. There is prominent stool in the colon. There is uncomplicated colonic diverticulosis. Dictated by: Dictated on workstation # [id number]
== END ==
LOC: RAD 11:03
PROVIDERS: ATTEND Internal Medicine Hematology & Oncology
DX: C82.88 Other types of follicular lymphoma, lymph nodes of multiple sites (principal); I25.10 Atherosclerotic heart disease of native coronary artery without angina pectoris; N20.0 Calculus of kidney; K43.9 Ventral hernia without obstruction or gangrene; K57.30 Diverticulosis of large intestine without perforation or abscess without bleeding; Z95.828 Presence of other vascular implants and grafts
CPT/HCPCS: 71260; 74178

== ENCOUNTER → 2018-10-19 | Outpatient (CLI) | payer MEDICARE, OTHER ==
--- NOTE | 2018-10-19 17:49 | Diagnostic Imaging Report ---
INDICATION: Routine screening. COMPARISON: 11/13/2017 and 11/06/2015. TECHNIQUE: 2D and 3D bilateral screening mammography was performed with CAD. FINDINGS: Both breasts are heterogeneously dense, limiting the sensitivity of mammography. A circumscribed density in the outer left breast at anterior depth on the CC view appears stable. No new mass or malignant appearing microcalcifications are seen. The axillae are unremarkable. There are surgical clips in the left axilla. The previously noted large lymph nodes have resolved. IMPRESSION: No mammographic features suspicious for malignancy are identified. ACR BI-RADS Category 2: Benign findings. Result letter will be mailed to the patient. Note: At least 10% of breast cancer is not imaged by mammography. Dictated by: Dictated on workstation # [id number]
== END ==
LOC: RAD 10:10
PROVIDERS: ATTEND Nurse Practitioner Adult Health
DX: Z12.31 Encounter for screening mammogram for malignant neoplasm of breast (principal)
CPT/HCPCS: 77067

== ENCOUNTER 2018-11-25 13:17 | Outpatient (RCR) | payer MEDICARE, OTHER ==
[2018-09-09 11:20] LABS: BASOPHILS % (AUTO) 0 % (0-10); EOSINOPHILS # (AUTO) 0.1 10^3/uL (0.0-0.3); EOSINOPHILS % (AUTO) 2 % (0-10); HEMATOCRIT 33 % (35-52); HEMOGLOBIN 11.3 G/DL (11.5-16.0); LYMPHOCYTES # (AUTO) 0.2 X 10^3 (1.0-4.0); LYMPHOCYTES % (AUTO) 6 % (12-44); MEAN CORPUSCULAR HEMOGLOBIN 28 PG (25-34); MEAN CORPUSCULAR HGB CONC 34 G/DL (32-36); MEAN CORPUSCULAR VOLUME 84 FL (80-99); MEAN PLATELET VOLUME 10.1 FL (7.4-10.4); MONOCYTES # (AUTO) 0.4 X 10^3 (0.0-1.0); MONOCYTES % (AUTO) 12 % (0-12); NEUTROPHILS # (AUTO) 2.4 X 10^3 (1.8-7.8); NEUTROPHILS % (AUTO) 79 % (42-75); PLATELET COUNT 118 10^3/uL (130-400); RED CELL DISTRIBUTION WIDTH 15.2 % (10.0-14.5)
[2018-09-09 11:39] LABS: CALCIUM 9.7 MG/DL (8.5-10.1); CREATININE SERUM 0.97 MG/DL (0.60-1.30)
[2018-09-16 13:30] LABS: BASOPHILS % (AUTO) 0 % (0-10); EOSINOPHILS # (AUTO) 0.1 10^3/uL (0.0-0.3); EOSINOPHILS % (AUTO) 3 % (0-10); HEMATOCRIT 34 % (35-52); HEMOGLOBIN 11.3 G/DL (11.5-16.0); LYMPHOCYTES # (AUTO) 0.4 X 10^3 (1.0-4.0); LYMPHOCYTES % (AUTO) 14 % (12-44); MEAN CORPUSCULAR HEMOGLOBIN 28 PG (25-34); MEAN CORPUSCULAR HGB CONC 33 G/DL (32-36); MEAN CORPUSCULAR VOLUME 84 FL (80-99); MEAN PLATELET VOLUME 10.5 FL (7.4-10.4); MONOCYTES # (AUTO) 0.3 X 10^3 (0.0-1.0); MONOCYTES % (AUTO) 13 % (0-12); NEUTROPHILS # (AUTO) 1.8 X 10^3 (1.8-7.8); NEUTROPHILS % (AUTO) 69 % (42-75); PLATELET COUNT 124 10^3/uL (130-400); RED CELL DISTRIBUTION WIDTH 15.2 % (10.0-14.5); WHITE BLOOD COUNT 2.5 10^3/uL (4.3-11.0)
[2018-09-16 13:55] LABS: CALCIUM 9.3 MG/DL (8.5-10.1); CREATININE SERUM 0.96 MG/DL (0.60-1.30); POTASSIUM 3.6 MMOL/L (3.6-5.0)
[2018-09-23 13:50] LABS: BASOPHILS % (AUTO) 1 % (0-10); EOSINOPHILS # (AUTO) 0.1 10^3/uL (0.0-0.3); EOSINOPHILS % (AUTO) 3 % (0-10); HEMATOCRIT 33 % (35-52); HEMOGLOBIN 11.1 G/DL (11.5-16.0); LYMPHOCYTES # (AUTO) 0.3 X 10^3 (1.0-4.0); LYMPHOCYTES % (AUTO) 15 % (12-44); MEAN CORPUSCULAR HEMOGLOBIN 28 PG (25-34); MEAN CORPUSCULAR HGB CONC 34 G/DL (32-36); MEAN CORPUSCULAR VOLUME 84 FL (80-99); MEAN PLATELET VOLUME 10.5 FL (7.4-10.4); MONOCYTES # (AUTO) 0.4 X 10^3 (0.0-1.0); MONOCYTES % (AUTO) 17 % (0-12); NEUTROPHILS # (AUTO) 1.4 X 10^3 (1.8-7.8); NEUTROPHILS % (AUTO) 64 % (42-75); PLATELET COUNT 113 10^3/uL (130-400); RED CELL DISTRIBUTION WIDTH 15.3 % (10.0-14.5); WHITE BLOOD COUNT 2.2 10^3/uL (4.3-11.0)
[2018-09-23 13:58] LABS: CALCIUM 9.5 MG/DL (8.5-10.1); CREATININE SERUM 1.11 MG/DL (0.60-1.30); POTASSIUM 4.1 MMOL/L (3.6-5.0)
[2018-09-29 13:09] LABS: BASOPHILS % (AUTO) 1 % (0-10); EOSINOPHILS # (AUTO) 0.1 10^3/uL (0.0-0.3); EOSINOPHILS % (AUTO) 2 % (0-10); HEMATOCRIT 32 % (35-52); HEMOGLOBIN 10.8 G/DL (11.5-16.0); LYMPHOCYTES # (AUTO) 0.4 X 10^3 (1.0-4.0); LYMPHOCYTES % (AUTO) 16 % (12-44); MEAN CORPUSCULAR HEMOGLOBIN 28 PG (25-34); MEAN CORPUSCULAR HGB CONC 34 G/DL (32-36); MEAN CORPUSCULAR VOLUME 84 FL (80-99); MEAN PLATELET VOLUME 9.8 FL (7.4-10.4); MONOCYTES # (AUTO) 0.3 X 10^3 (0.0-1.0); MONOCYTES % (AUTO) 13 % (0-12); NEUTROPHILS # (AUTO) 1.7 X 10^3 (1.8-7.8); NEUTROPHILS % (AUTO) 67 % (42-75); PLATELET COUNT 91 10^3/uL (130-400); RED CELL DISTRIBUTION WIDTH 14.9 % (10.0-14.5); WHITE BLOOD COUNT 2.5 10^3/uL (4.3-11.0)
[2018-09-29 13:26] LABS: ALANINE AMINOTRANSFERASE 18 U/L (0-55); ALKALINE PHOSPHATASE 86 U/L (40-136); BILIRUBIN,TOTAL 0.5 MG/DL (0.1-1.0); BUN/CREATININE RATIO 24; CALCIUM 9.7 MG/DL (8.5-10.1); CARBON DIOXIDE 25 MMOL/L (21-32); CHLORIDE 106 MMOL/L (98-107); CREATININE SERUM 0.82 MG/DL (0.60-1.30); GFR ESTIMATED > 60; GLUCOSE 147 MG/DL (70-105); POTASSIUM 4.4 MMOL/L (3.6-5.0); SODIUM 141 MMOL/L (135-145); TOTAL PROTEIN 6.5 GM/DL (6.4-8.2)
[~2018-11-25 13:17] MED LIST changes: +ACETAMINOPHEN 325 MG TAB (TYLENOL) CANCER CTR PO PRN; -BARIUM SUSPENSION 2.1% (VANILLA SILQ) 450 ML PO ONE; +BENDAMUSTINE HCL 180 MG in NS (IVPB) CANCER CENTER 50 ML IV SCH; -IOHEXOL 350 MG/ML 100 ML (OMNIPAQUE 350) VIAL IV ONE; +MEPERIDINE (DEMEROL) INJ 50 MG/ML CANCER CTR IV PRN; -NS 100 ML (IVPB) BAG IV ONE; +NS IV 1000 ML (CANCER CTR) IV SCH; +ONDANSETRON MDV (CANCER CENTER 16 MG, DEXAMETHASONE INJECTION 10 MG in NS (IVPB) CANCER... IV SCH; +PALONOSETRON HCL 0.25 MG, DEXAMETHASONE INJECTION 10 MG in NS (IVPB) CANCER CENTER 50 ML IV SCH; -RECEIVED CONTRAST (Hold Metformin) IV SCH; +diphenhydrAMINE 25 MG TAB (BENADRYL) CANCER CENTER PO SCH; +riTUXimab 500 MG, riTUXimab FOR IV INJ CONC 300 MG in NS (IVPB) CANCER CENTER 186 ML IV SCH
== END 2018-12-01 | disposition home or self-care (01) ==
LOC: ONC 13:17
PROVIDERS: ATTEND Internal Medicine Hematology & Oncology
DX: C82.98 Follicular lymphoma, unspecified, lymph nodes of multiple sites (principal); E11.9 Type 2 diabetes mellitus without complications; I10 Essential (primary) hypertension; E78.5 Hyperlipidemia, unspecified; E03.9 Hypothyroidism, unspecified; K21.9 Gastro-esophageal reflux disease without esophagitis; M19.91 Primary osteoarthritis, unspecified site; I73.9 Peripheral vascular disease, unspecified; E66.9 Obesity, unspecified; Z68.31 Body mass index [BMI] 31.0-31.9, adult; Z79.4 Long term (current) use of insulin; Z79.899 Other long term (current) drug therapy; Z45.2 Encounter for adjustment and management of vascular access device
CPT/HCPCS: 36415; 36591; 80048; 80053; 83615; 85025; 96375; 96409; 96523; J9312

== ENCOUNTER 2019-06-09 13:59 | Outpatient (RCR) | payer OTHER ==
[2019-03-24 13:17] LABS: BASOPHILS % (AUTO) 0 % (0-10); EOSINOPHILS # (AUTO) 0.1 10^3/uL (0.0-0.3); EOSINOPHILS % (AUTO) 2 % (0-10); HEMATOCRIT 35 % (35-52); HEMOGLOBIN 11.5 G/DL (11.5-16.0); LYMPHOCYTES # (AUTO) 0.6 X 10^3 (1.0-4.0); LYMPHOCYTES % (AUTO) 10 % (12-44); MEAN CORPUSCULAR HEMOGLOBIN 28 PG (25-34); MEAN CORPUSCULAR HGB CONC 33 G/DL (32-36); MEAN CORPUSCULAR VOLUME 85 FL (80-99); MEAN PLATELET VOLUME 10.4 FL (7.4-10.4); MONOCYTES # (AUTO) 0.5 X 10^3 (0.0-1.0); MONOCYTES % (AUTO) 8 % (0-12); NEUTROPHILS # (AUTO) 4.9 X 10^3 (1.8-7.8); NEUTROPHILS % (AUTO) 80 % (42-75); PLATELET COUNT 154 10^3/uL (130-400); RED CELL DISTRIBUTION WIDTH 14.1 % (10.0-14.5); WHITE BLOOD COUNT 6.2 10^3/uL (4.3-11.0)
[2019-03-24 13:38] LABS: ALBUMIN 4.2 GM/DL (3.2-4.5); BILIRUBIN,TOTAL 0.5 MG/DL (0.1-1.0); CALCIUM 10.2 MG/DL (8.5-10.1); CREATININE SERUM 1.32 MG/DL (0.60-1.30); POTASSIUM 4.7 MMOL/L (3.6-5.0); TOTAL PROTEIN 6.8 GM/DL (6.4-8.2)
[~2019-06-09 13:59] MED LIST changes: -ACETAMINOPHEN 325 MG TAB (TYLENOL) CANCER CTR PO PRN; -BENDAMUSTINE HCL 180 MG in NS (IVPB) CANCER CENTER 50 ML IV SCH; -MEPERIDINE (DEMEROL) INJ 50 MG/ML CANCER CTR IV PRN; -NS IV 1000 ML (CANCER CTR) IV SCH; -ONDANSETRON MDV (CANCER CENTER 16 MG, DEXAMETHASONE INJECTION 10 MG in NS (IVPB) CANCER... IV SCH; -PALONOSETRON HCL 0.25 MG, DEXAMETHASONE INJECTION 10 MG in NS (IVPB) CANCER CENTER 50 ML IV SCH; -diphenhydrAMINE 25 MG TAB (BENADRYL) CANCER CENTER PO SCH; -riTUXimab 500 MG, riTUXimab FOR IV INJ CONC 300 MG in NS (IVPB) CANCER CENTER 186 ML IV SCH
[2019-06-09 14:19] LABS: BASOPHILS % (AUTO) 0 % (0-10); EOSINOPHILS # (AUTO) 0.2 10^3/uL (0.0-0.3); EOSINOPHILS % (AUTO) 4 % (0-10); HEMATOCRIT 35 % (35-52); HEMOGLOBIN 11.5 G/DL (11.5-16.0); LYMPHOCYTES # (AUTO) 0.6 X 10^3 (1.0-4.0); LYMPHOCYTES % (AUTO) 10 % (12-44); MEAN CORPUSCULAR HEMOGLOBIN 28 PG (25-34); MEAN CORPUSCULAR HGB CONC 33 G/DL (32-36); MEAN CORPUSCULAR VOLUME 84 FL (80-99); MEAN PLATELET VOLUME 10.2 FL (7.4-10.4); MONOCYTES # (AUTO) 0.5 X 10^3 (0.0-1.0); MONOCYTES % (AUTO) 8 % (0-12); NEUTROPHILS % (AUTO) 78 % (42-75); PLATELET COUNT 178 10^3/uL (130-400); RED CELL DISTRIBUTION WIDTH 14.3 % (10.0-14.5); WHITE BLOOD COUNT 6.4 10^3/uL (4.3-11.0)
[2019-06-09 14:41] LABS: ALBUMIN 4.1 GM/DL (3.2-4.5); BILIRUBIN,TOTAL 0.4 MG/DL (0.1-1.0); CREATININE SERUM 1.06 MG/DL (0.60-1.30); POTASSIUM 4.4 MMOL/L (3.6-5.0); TOTAL PROTEIN 6.9 GM/DL (6.4-8.2)
== END 2019-06-22 | disposition home or self-care (01) ==
LOC: ONC 13:59
PROVIDERS: ATTEND Internal Medicine Hematology & Oncology
DX: C82.98 Follicular lymphoma, unspecified, lymph nodes of multiple sites (principal); E11.9 Type 2 diabetes mellitus without complications; I10 Essential (primary) hypertension; E78.5 Hyperlipidemia, unspecified; E03.9 Hypothyroidism, unspecified; K21.9 Gastro-esophageal reflux disease without esophagitis; M19.91 Primary osteoarthritis, unspecified site; I73.9 Peripheral vascular disease, unspecified; E66.9 Obesity, unspecified; Z68.31 Body mass index [BMI] 31.0-31.9, adult; Z79.4 Long term (current) use of insulin; Z79.899 Other long term (current) drug therapy; Z45.2 Encounter for adjustment and management of vascular access device
CPT/HCPCS: 36591; 80053; 83615; 85025; 96523

== ENCOUNTER 2019-09-02 12:55 | Outpatient (RCR) | payer OTHER ==
[~2019-09-02 12:55] MED LIST changes: -OXYB10TA PO; +OXYB10TA2 PO
[2019-09-02 13:23] LABS: BASOPHILS % (AUTO) 0 % (0-10); EOSINOPHILS # (AUTO) 0.2 10^3/uL (0.0-0.3); EOSINOPHILS % (AUTO) 3 % (0-10); HEMATOCRIT 37 % (35-52); HEMOGLOBIN 11.8 G/DL (11.5-16.0); LYMPHOCYTES # (AUTO) 0.7 X 10^3 (1.0-4.0); LYMPHOCYTES % (AUTO) 15 % (12-44); MEAN CORPUSCULAR HEMOGLOBIN 28 PG (25-34); MEAN CORPUSCULAR HGB CONC 32 G/DL (32-36); MEAN CORPUSCULAR VOLUME 86 FL (80-99); MEAN PLATELET VOLUME 10.7 FL (7.4-10.4); MONOCYTES # (AUTO) 0.3 X 10^3 (0.0-1.0); MONOCYTES % (AUTO) 6 % (0-12); NEUTROPHILS # (AUTO) 3.9 X 10^3 (1.8-7.8); NEUTROPHILS % (AUTO) 76 % (42-75); PLATELET COUNT 146 10^3/uL (130-400); RED CELL DISTRIBUTION WIDTH 14.7 % (10.0-14.5); WHITE BLOOD COUNT 5.1 10^3/uL (4.3-11.0)
[2019-09-02 13:44] LABS: ALBUMIN 4.1 GM/DL (3.2-4.5); BILIRUBIN,TOTAL 0.4 MG/DL (0.1-1.0); CALCIUM 9.6 MG/DL (8.5-10.1); CREATININE SERUM 1.02 MG/DL (0.60-1.30); POTASSIUM 4.3 MMOL/L (3.6-5.0); TOTAL PROTEIN 6.8 GM/DL (6.4-8.2)
== END 2019-10-05 | disposition home or self-care (01) ==
LOC: ONC 12:55
PROVIDERS: ATTEND Internal Medicine Hematology & Oncology
DX: C82.98 Follicular lymphoma, unspecified, lymph nodes of multiple sites (principal); E11.9 Type 2 diabetes mellitus without complications; I10 Essential (primary) hypertension; E78.5 Hyperlipidemia, unspecified; E03.9 Hypothyroidism, unspecified; K21.9 Gastro-esophageal reflux disease without esophagitis; M19.91 Primary osteoarthritis, unspecified site; I73.9 Peripheral vascular disease, unspecified; E66.9 Obesity, unspecified; Z68.31 Body mass index [BMI] 31.0-31.9, adult; Z79.4 Long term (current) use of insulin; Z79.899 Other long term (current) drug therapy; Z45.2 Encounter for adjustment and management of vascular access device
CPT/HCPCS: 36591; 80053; 83615; 85025; 96523

== ENCOUNTER 2019-12-20 12:37 | Outpatient (RCR) | payer MEDICARE, OTHER ==
[~2019-12-20 12:37] MED LIST changes: -OXYB10TA2 PO; +OXYB10TA29 PO
[2019-12-20 12:54] LABS: BASOPHILS % (AUTO) 0 % (0-10); EOSINOPHILS # (AUTO) 0.1 10^3/uL (0.0-0.3); EOSINOPHILS % (AUTO) 2 % (0-10); HEMATOCRIT 37 % (35-52); HEMOGLOBIN 12.3 G/DL (11.5-16.0); LYMPHOCYTES # (AUTO) 0.8 X 10^3 (1.0-4.0); LYMPHOCYTES % (AUTO) 16 % (12-44); MEAN CORPUSCULAR HGB CONC 33 G/DL (32-36); MEAN CORPUSCULAR VOLUME 85 FL (80-99); MEAN PLATELET VOLUME 9.8 FL (7.4-10.4); MONOCYTES # (AUTO) 0.4 X 10^3 (0.0-1.0); MONOCYTES % (AUTO) 8 % (0-12); NEUTROPHILS # (AUTO) 3.4 X 10^3 (1.8-7.8); NEUTROPHILS % (AUTO) 73 % (42-75); PLATELET COUNT 169 10^3/uL (130-400); RED CELL DISTRIBUTION WIDTH 14.6 % (10.0-14.5); WHITE BLOOD COUNT 4.6 10^3/uL (4.3-11.0)
[2019-12-20 12:57] LABS: MEAN CORPUSCULAR HEMOGLOBIN 28 PG (25-34)
[2019-12-20 13:19] LABS: BILIRUBIN,TOTAL 0.5 MG/DL (0.1-1.0); CALCIUM 9.8 MG/DL (8.5-10.1); CREATININE SERUM 1.04 MG/DL (0.60-1.30); POTASSIUM 4.4 MMOL/L (3.6-5.0); TOTAL PROTEIN 6.7 GM/DL (6.4-8.2)
== END 2020-01-12 | disposition home or self-care (01) ==
LOC: ONC 12:37
PROVIDERS: ATTEND Internal Medicine Hematology & Oncology
DX: C82.98 Follicular lymphoma, unspecified, lymph nodes of multiple sites (principal); E11.9 Type 2 diabetes mellitus without complications; I10 Essential (primary) hypertension; E78.5 Hyperlipidemia, unspecified; E03.9 Hypothyroidism, unspecified; K21.9 Gastro-esophageal reflux disease without esophagitis; M19.91 Primary osteoarthritis, unspecified site; I73.9 Peripheral vascular disease, unspecified; E66.9 Obesity, unspecified; Z68.31 Body mass index [BMI] 31.0-31.9, adult; Z79.4 Long term (current) use of insulin; Z79.899 Other long term (current) drug therapy; Z45.2 Encounter for adjustment and management of vascular access device
CPT/HCPCS: 36591; 80053; 83615; 85025; 96523

== ENCOUNTER 2020-01-19 12:16 | Outpatient (RCR) | payer MEDICARE, OTHER | END 2020-02-02 11:14 | disposition home or self-care (01) | LOC: ONC 12:16 | PROVIDERS: ATTEND Internal Medicine Hematology & Oncology | DX: Z45.2 Encounter for adjustment and management of vascular access device (principal); C82.88 Other types of follicular lymphoma, lymph nodes of multiple sites; I10 Essential (primary) hypertension; E78.5 Hyperlipidemia, unspecified; E03.9 Hypothyroidism, unspecified; K21.9 Gastro-esophageal reflux disease without esophagitis; M19.91 Primary osteoarthritis, unspecified site; E11.51 Type 2 diabetes mellitus with diabetic peripheral angiopathy without gangrene; E66.9 Obesity, unspecified; I73.9 Peripheral vascular disease, unspecified; Z79.4 Long term (current) use of insulin; Z79.899 Other long term (current) drug therapy; Z68.31 Body mass index [BMI] 31.0-31.9, adult | CPT/HCPCS: 96523 ==

== ENCOUNTER → 2020-02-10 | Outpatient (CLI) | payer MEDICARE, OTHER ==
[~2020-02-10] MED LIST changes: +BARIUM SUSPENSION 2.1% (VANILLA SILQ) 450 ML PO ONE; +HOLD METFORMIN - RECEIVED CONTRAST 20 ML VIAL IV SCH; +IOHEXOL 350 MG/ML 100 ML (OMNIPAQUE 350) VIAL IV ONE; +NS 100 ML (IVPB) BAG IV ONE
--- NOTE | 2020-02-10 09:36 | Diagnostic Imaging Report ---
PROCEDURE: CT chest with contrast, CT abdomen and pelvis with and without contrast. TECHNIQUE: Pre and post intravenous contrast axial imaging of the abdomen and pelvis and post contrast axial imaging of the chest were performed. Auto Exposure Controls were utilized during the CT exam to meet ALARA standards for radiation dose reduction. INDICATION: Lymphoma. Correlation is made with prior CT from 09/22/2018. CT CHEST: A right chest wall port has the tip at the SVC right atrial junction. No axillary lymphadenopathy is detected. Mediastinal or hilar lymphadenopathy is detected. No pericardial or pleural fluid is detected. Coronary arterial calcifications are again noted. Tiny nodule right middle lobe 3 to 4 mm in size appears stable. No new pulmonary nodule is identified. No infiltrates or masses are seen. IMPRESSION: Stable CT chest since 09/22/2018. No thoracic lymphadenopathy is detected. CT abdomen and pelvis: No discrete liver mass is detected. There are small stones in the gallbladder. No biliary duct dilatation is identified. The pancreas and spleen are unremarkable. No adrenal mass is detected. Right upper pole renal scarring with right upper pole calculus is again noted. No hydronephrosis is identified. Aorta and iliac vessels are calcified but non-aneurysmal. No pathologically enlarged lymph nodes in the central retroperitoneum or mesentery are identified. The small and large bowel loops are normal caliber. There is no obstruction. There is diverticulosis of the sigmoid colon but no evidence of acute diverticulitis. No free fluid or fluid collection is identified. The bladder is unremarkable. Uterus appears to be surgically absent. No pelvic lymphadenopathy is detected. Bony structures are unremarkable. A fat-containing midline ventral hernia is again noted. IMPRESSION: 1. Stable CT abdomen and pelvis since 09/22/2018. Cholelithiasis and right renal calculus stable. No abdominal or pelvic lymphadenopathy is detected. Dictated by: Dictated on workstation # [id number]
== END ==
LOC: RAD 08:17
PROVIDERS: ATTEND Internal Medicine Hematology & Oncology
DX: C82.88 Other types of follicular lymphoma, lymph nodes of multiple sites (principal); N20.0 Calculus of kidney; K80.20 Calculus of gallbladder without cholecystitis without obstruction; Z95.828 Presence of other vascular implants and grafts
CPT/HCPCS: 71260; 74178

== ENCOUNTER 2020-04-10 09:54 | Outpatient (RCR) | payer MEDICARE, OTHER ==
[2020-02-03 10:54] LABS: BASOPHILS % (AUTO) 0 % (0-10); EOSINOPHILS # (AUTO) 0.2 10^3/uL (0.0-0.3); EOSINOPHILS % (AUTO) 3 % (0-10); HEMATOCRIT 37 % (35-52); HEMOGLOBIN 12.2 G/DL (11.5-16.0); LYMPHOCYTES # (AUTO) 0.8 X 10^3 (1.0-4.0); LYMPHOCYTES % (AUTO) 15 % (12-44); MEAN CORPUSCULAR HEMOGLOBIN 28 PG (25-34); MEAN CORPUSCULAR HGB CONC 33 G/DL (32-36); MEAN CORPUSCULAR VOLUME 86 FL (80-99); MEAN PLATELET VOLUME 10.2 FL (7.4-10.4); MONOCYTES # (AUTO) 0.4 X 10^3 (0.0-1.0); MONOCYTES % (AUTO) 8 % (0-12); NEUTROPHILS # (AUTO) 3.8 X 10^3 (1.8-7.8); NEUTROPHILS % (AUTO) 73 % (42-75); PLATELET COUNT 164 10^3/uL (130-400); WHITE BLOOD COUNT 5.2 10^3/uL (4.3-11.0)
[2020-02-03 11:16] LABS: BILIRUBIN,TOTAL 0.4 MG/DL (0.1-1.0); CALCIUM 9.4 MG/DL (8.5-10.1); CREATININE SERUM 0.98 MG/DL (0.60-1.30); POTASSIUM 4.3 MMOL/L (3.6-5.0); TOTAL PROTEIN 6.5 GM/DL (6.4-8.2)
[~2020-04-10 09:54] MED LIST changes: -BARIUM SUSPENSION 2.1% (VANILLA SILQ) 450 ML PO ONE; -HOLD METFORMIN - RECEIVED CONTRAST 20 ML VIAL IV SCH; -IOHEXOL 350 MG/ML 100 ML (OMNIPAQUE 350) VIAL IV ONE; -NS 100 ML (IVPB) BAG IV ONE
== END 2020-05-03 | disposition home or self-care (01) ==
LOC: ONC 09:54
PROVIDERS: ATTEND Internal Medicine Hematology & Oncology
DX: Z45.2 Encounter for adjustment and management of vascular access device (principal); C82.88 Other types of follicular lymphoma, lymph nodes of multiple sites; I10 Essential (primary) hypertension; E78.5 Hyperlipidemia, unspecified; E03.9 Hypothyroidism, unspecified; K21.9 Gastro-esophageal reflux disease without esophagitis; M19.91 Primary osteoarthritis, unspecified site; E11.51 Type 2 diabetes mellitus with diabetic peripheral angiopathy without gangrene; E66.9 Obesity, unspecified; I73.9 Peripheral vascular disease, unspecified; Z79.4 Long term (current) use of insulin; Z79.899 Other long term (current) drug therapy; Z68.31 Body mass index [BMI] 31.0-31.9, adult
CPT/HCPCS: 80053; 83615; 85025; G0463; 96523; 99213

== ENCOUNTER 2020-08-02 13:07 | Outpatient (RCR) | payer MEDICARE, OTHER | END 2020-08-06 | disposition home or self-care (01) | LOC: ONC 13:07 | PROVIDERS: ATTEND Internal Medicine Hematology & Oncology | DX: Z45.2 Encounter for adjustment and management of vascular access device (principal); C82.88 Other types of follicular lymphoma, lymph nodes of multiple sites; I10 Essential (primary) hypertension; E78.5 Hyperlipidemia, unspecified; E03.9 Hypothyroidism, unspecified; K21.9 Gastro-esophageal reflux disease without esophagitis; M19.91 Primary osteoarthritis, unspecified site; E11.51 Type 2 diabetes mellitus with diabetic peripheral angiopathy without gangrene; E11.65 Type 2 diabetes mellitus with hyperglycemia; E66.9 Obesity, unspecified; K80.20 Calculus of gallbladder without cholecystitis without obstruction; N20.0 Calculus of kidney; I73.9 Peripheral vascular disease, unspecified; Z79.4 Long term (current) use of insulin; Z79.899 Other long term (current) drug therapy; Z68.31 Body mass index [BMI] 31.0-31.9, adult | CPT/HCPCS: 96523 ==

== ENCOUNTER 2020-08-30 12:19 | Outpatient (RCR) | payer MEDICARE, OTHER | END 2020-09-21 12:38 | disposition still patient (30) | LOC: ONC 12:19 | PROVIDERS: ATTEND Internal Medicine Hematology & Oncology | DX: Z45.2 Encounter for adjustment and management of vascular access device (principal); C82.88 Other types of follicular lymphoma, lymph nodes of multiple sites; I10 Essential (primary) hypertension; E78.5 Hyperlipidemia, unspecified; K21.9 Gastro-esophageal reflux disease without esophagitis; E66.9 Obesity, unspecified; K80.20 Calculus of gallbladder without cholecystitis without obstruction; N20.0 Calculus of kidney; R73.9 Hyperglycemia, unspecified; Z79.899 Other long term (current) drug therapy | CPT/HCPCS: 96523 ==

== ENCOUNTER 2020-12-20 09:00 | Outpatient (RCR) | payer MEDICARE, OTHER ==
[2020-09-27 13:56] LABS: BASOPHILS % (AUTO) 1 % (0-10); EOSINOPHILS % (AUTO) 1 % (0-10); HEMATOCRIT 38 % (35-52); HEMOGLOBIN 12.2 g/dL (11.5-16.0); LYMPHOCYTES # (AUTO) 0.9 10^3/uL (1.0-4.0); LYMPHOCYTES % (AUTO) 22 % (12-44); MEAN CORPUSCULAR HEMOGLOBIN 28 pg (25-34); MEAN CORPUSCULAR HGB CONC 32 g/dL (32-36); MEAN CORPUSCULAR VOLUME 89 fL (80-99); MEAN PLATELET VOLUME 10.9 fL (9.0-12.2); MONOCYTES # (AUTO) 0.3 10^3/uL (0.0-1.0); MONOCYTES % (AUTO) 7 % (0-12); NEUTROPHILS # (AUTO) 2.8 10^3/uL (1.8-7.8); NEUTROPHILS % (AUTO) 70 % (42-75); PLATELET COUNT 148 10^3/uL (130-400); WHITE BLOOD COUNT 4.1 10^3/uL (4.3-11.0)
[2020-09-27 14:15] LABS: ALBUMIN 3.8 GM/DL (3.2-4.5); BILIRUBIN,TOTAL 0.4 MG/DL (0.1-1.0); CALCIUM 8.9 MG/DL (8.5-10.1); CREATININE SERUM 1.02 MG/DL (0.60-1.30); POTASSIUM 4.1 MMOL/L (3.6-5.0); TOTAL PROTEIN 6.1 GM/DL (6.4-8.2)
== END 2020-12-26 | disposition home or self-care (01) ==
LOC: ONC 09:00
PROVIDERS: ATTEND Internal Medicine Hematology & Oncology
DX: Z45.2 Encounter for adjustment and management of vascular access device (principal); C82.88 Other types of follicular lymphoma, lymph nodes of multiple sites; I10 Essential (primary) hypertension; E78.5 Hyperlipidemia, unspecified; E03.9 Hypothyroidism, unspecified; K21.9 Gastro-esophageal reflux disease without esophagitis; M19.91 Primary osteoarthritis, unspecified site; E11.51 Type 2 diabetes mellitus with diabetic peripheral angiopathy without gangrene; E11.65 Type 2 diabetes mellitus with hyperglycemia; E66.9 Obesity, unspecified; K80.20 Calculus of gallbladder without cholecystitis without obstruction; N20.0 Calculus of kidney; I73.9 Peripheral vascular disease, unspecified; Z79.4 Long term (current) use of insulin; Z79.899 Other long term (current) drug therapy; Z68.31 Body mass index [BMI] 31.0-31.9, adult
CPT/HCPCS: 80053; 83615; 85025; G0463; 36591; 96523

== ENCOUNTER 2021-04-01 10:22 | Outpatient (RCR) | payer MEDICARE, OTHER ==
[2021-04-01 11:08] LABS: BASOPHILS % (AUTO) 1 % (0-10); HEMOGLOBIN 11.8 g/dL (11.5-16.0)
[2021-04-01 11:10] LABS: EOSINOPHILS # (AUTO) 0.1 10^3/uL (0.0-0.3); EOSINOPHILS % (AUTO) 3 % (0-10); HEMATOCRIT 36 % (35-52); LYMPHOCYTES # (AUTO) 0.8 10^3/uL (1.0-4.0); LYMPHOCYTES % (AUTO) 19 % (12-44); MEAN CORPUSCULAR HEMOGLOBIN 28 pg (25-34); MEAN CORPUSCULAR HGB CONC 33 g/dL (32-36); MEAN CORPUSCULAR VOLUME 86 fL (80-99); MEAN PLATELET VOLUME 10.5 fL (9.0-12.2); MONOCYTES # (AUTO) 0.3 10^3/uL (0.0-1.0); MONOCYTES % (AUTO) 8 % (0-12); NEUTROPHILS # (AUTO) 2.7 10^3/uL (1.8-7.8); NEUTROPHILS % (AUTO) 69 % (42-75); PLATELET COUNT 145 10^3/uL (130-400); WHITE BLOOD COUNT 3.9 10^3/uL (4.3-11.0)
[2021-04-01 11:30] LABS: ALBUMIN 3.7 GM/DL (3.2-4.5); BILIRUBIN,TOTAL 0.5 MG/DL (0.1-1.0); CALCIUM 8.9 MG/DL (8.5-10.1); CREATININE SERUM 1.17 MG/DL (0.60-1.30); POTASSIUM 4.2 MMOL/L (3.6-5.0); TOTAL PROTEIN 6.4 GM/DL (6.4-8.2)
== END 2021-04-17 | disposition home or self-care (01) ==
LOC: ONC 10:22
PROVIDERS: ATTEND Internal Medicine Hematology & Oncology
DX: Z45.2 Encounter for adjustment and management of vascular access device (principal); C85.18 Unspecified B-cell lymphoma, lymph nodes of multiple sites; I10 Essential (primary) hypertension; E78.5 Hyperlipidemia, unspecified; K21.9 Gastro-esophageal reflux disease without esophagitis; E66.9 Obesity, unspecified; R73.9 Hyperglycemia, unspecified; Z79.899 Other long term (current) drug therapy; Z68.31 Body mass index [BMI] 31.0-31.9, adult; Z87.891 Personal history of nicotine dependence
CPT/HCPCS: 36591; 80053; 83615; 85025; 96523

== ENCOUNTER 2021-07-24 10:46 | Outpatient (RCR) | payer MEDICARE, OTHER | END 2021-07-28 | disposition home or self-care (01) | LOC: ONC 10:46 | PROVIDERS: ATTEND Internal Medicine Hematology & Oncology | DX: Z45.2 Encounter for adjustment and management of vascular access device (principal); C82.88 Other types of follicular lymphoma, lymph nodes of multiple sites; N20.0 Calculus of kidney; I10 Essential (primary) hypertension; E78.5 Hyperlipidemia, unspecified; E66.9 Obesity, unspecified; R73.9 Hyperglycemia, unspecified; Z79.899 Other long term (current) drug therapy; Z68.31 Body mass index [BMI] 31.0-31.9, adult | CPT/HCPCS: 96523 ==

== ENCOUNTER 2021-08-29 14:17 | Emergency (ER) | payer MEDICARE, OTHER ==
[~2021-08-29] VITALS: Ht 172.7 cm; Wt 102.0 kg
--- NOTE | 2021-08-29 14:56 | ED General ---
General Chief Complaint: Glucose Problems Stated Complaint: LOW BLOOD SUGAR Nursing Triage Note: AMB TO ROOM WITH DAUGHTER REPORTS THAT PATIENT BS WAS IN THER 50'S SHE WAS ON HER WAY TO THE [facility] ATE SOME CANDY IS DOING BETTER HER DEXCOM SHOWS 86 PATIENT ALERT AND TALKING. REPORTS THAT [facility] DR [facility] MEDS FOR BLOOD SUGAR, Source of Information: Patient (ASHLEE SNIDER) History of Present Illness Date Seen by Provider: Aug 29, 2021 Time Seen by Provider: 14:53 Initial Comments Patient is a 81-year-old female with a history of type 2 diabetes who presents to the ED with low blood sugar. She states her blood sugar has been running low for the past 2 days. She recently increased her empagliflozin and pioglitazone to a full tablet few weeks ago. Currently on regular insulin and long-acting insulin. She states today her blood sugar got as low as 57. Has been running in the 60s to 70s over the past 2 days. She reports symptoms of fatigue, weakness, jitteriness and not feeling as well. She states she feels much better at this time. Initial blood sugar on arrival 87. She did attempt to eat a biscuit and candy this morning with improvement. Was not able to go to her chiropractor visit. She denies any chest pain, shortness of breath, vomiting, diarrhea, dysuria, headache, dizziness. She states she just feels "different". She denies Frequent urination, dysuria (ASHLEE SNIDER) Allergies and Home Medications Allergies Coded Allergies: Laotoyo-Itm-Lzo Reductase Inhibitor (Unverified Allergy, Mild, MUSCLE PAIN, 03/09/18) adhesive (Unverified Allergy, Unknown, 03/09/18) lisinopril (Unverified Adverse Reaction, Mild, COUGH, 03/09/18) Patient Home Medication List Home Medication List Reviewed: Yes (ASHLEE SNIDER) Home Medication List Reviewed: Yes (DAVID GRIMALDO MD) Carboxymethylcellulose Sodium (Refresh Liquigel) 15 Ml Drp.lq.gel, 15 ML OP Q3HR, (Reported) Entered as Reported by: CHRISTIANO LOPEZ on 10/30/16 1252 Carvedilol (Carvedilol) 12.5 Mg Tablet, 6.25 MG PO BID, (Reported) Entered as Reported by: CHRISTIANO LOPEZ on 10/30/16 1252 Cholecalciferol (Vitamin D3) (Vitamin D3) 1,000 Unit Capsule, 2,000 UNIT PO DAILY, (Reported) Entered as Reported by: CHRISTIANO LOPEZ on 10/30/16 1252 Hydrochlorothiazide (Hydrochlorothiazide) 25 Mg Tablet, 25 MG PO EVERY OTHER DAY, (Reported) Entered as Reported by: CHRISTIANO LOPEZ on 03/09/18 1438 Hydrocodone Bit/Acetaminophen (Lortab 5 Mg Tablet) 1 Tab Tab, 1-2 TAB PO 4-6HR PRN for PAIN Prescribed by: JESSI FIGUEROA on 03/10/18 1321 Insulin Detemir (Levemir Flextouch) 100 Unit/1 Ml Insuln.pen, 13 UNIT SQ BID, (Reported) Entered as Reported by: CHRISTIANO LOPEZ on 03/09/18 1438 Levothyroxine Sodium (Levothyroxine Sodium) 75 Mcg Tablet, 75 MCG PO DAILY, (Reported) Entered as Reported by: CHRISTIANO LOPEZ on 03/09/18 1438 Loratadine (Loratadine) 10 Mg Tablet, 10 MG PO DAILY, (Reported) Entered as Reported by: CHRISTIANO LOPEZ on 03/09/18 1438 Meloxicam (Meloxicam) 15 Mg Tablet, 15 MG PO DAILY, (Reported) Entered as Reported by: CHRISTIANO LOPEZ on 10/30/16 1252 Metformin HCl (Metformin HCl) 500 Mg Tablet, 500 MG PO BID, (Reported) Entered as Reported by: CHRISTIANO LOPEZ on 10/30/16 1252 Omeprazole (Omeprazole) 20 Mg Tablet.dr, 20 MG PO DAILY, (Reported) Entered as Reported by: CHRISTIANO LOPEZ on 03/09/18 1438 Oxybutynin Chloride (Oxybutynin Chloride ER) 10 Mg Tab.er.24, 10 MG PO DAILY, (Reported) Entered as Reported by: CHRISTIANO LOPEZ on 10/30/16 1252 Polyethylene Glycol 3350 (Miralax) 17 Gm Powd.pack, 17 GM PO DAILY, (Reported) Entered as Reported by: CHRISTIANO LOPEZ on 10/30/16 1257 Saxagliptin HCl (Onglyza) 5 Mg Tablet, 5 MG PO DAILY, (Reported) Entered as Reported by: CHRISTIANO LOPEZ on 03/09/18 1438 Urea (Urea) 255 Gm Cream..g., 255 GM TP BID, (Reported) Entered as Reported by: CHRISTIANO LOPEZ on 10/30/16 1252 Vit C/E/Zn/Coppr/Lutein/Zeaxan (Preservision Areds 2 Softgel) 1 Each Capsule, 2 EACH PO DAILY, (Reported) Entered as Reported by: CHRISTIANO LOPEZ on 10/30/16 1252 Review of Systems Review of Systems Constitutional: No chills, No diaphoresis, No dizziness; malaise, weakness EENTM: No hearing loss, No ear pain, No blurred vision, No double vision Respiratory: No cough, No dyspnea on exertion, No hemoptysis, No orthopnea Gastrointestinal: No abdominal pain, No diarrhea, No nausea, No vomiting Genitourinary: No see HPI, No dysuria, No frequency Musculoskeletal: No back pain, No joint pain, No joint swelling, No muscle pain Skin: No change in color, No change in hair/nails Hematologic/Lymphatic: Denies Anemia (ASHLEE SNIDER) Past Zrgsbwo-Noywie-Wwsril Hx Immunizations Up To Date Tetanus Booster (TDap): Unknown (ASHLEE SNIDER) Seasonal Allergies Seasonal Allergies: Yes (MILD) (ASHLEE SNIDER) Past Medical History Adenoidectomy, Bladder Surgery, Hysterectomy, Tonsillectomy High Cholesterol, Hypertension Stroke Reproductive Disorders: No 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 Sexually Transmitted Disease: No HIV/AIDS: No Gastroesophageal Reflux, Chronic Constipation, Diverticulosis Arthritis Diabetes, Insulin dep, Hypothyroidsim Loss of Vision: Bilateral Hearing Impairment: Denies Skin, Lymphoma What Type of Treatment Did You: Surgical Intervention Adverse Reaction/Blood Tranf: No (N/A) (ASHLEE SNIDER) Family Medical History Cancer 09 SISTER Family history: Diabetes mellitus 03 MOTHER Stroke 03 MOTHER No Pertinent Family Hx (ASHLEE SNIDER) Physical Exam Vital Signs Vital Signs - First Documented 08/29/21 14:23 Temp 35.1 Pulse 78 Resp 18 B/P (MAP) 178/108 (131) Pulse Ox 98 O2 Delivery Room Air (DAVID GRIMALDO MD) Vital Signs Capillary Refill : Less Than 3 Seconds (ASHLEE SNIDER) Height, Weight, BMI Height: 5'8.00" Weight: 213lbs. 0.0oz. [id number]; 34.00 BMI Method:Stated General Appearance: No Apparent Distress, WD/WN Eyes: Bilateral Eye Normal Inspection, Bilateral Eye PERRL, Bilateral Eye EOMI HEENT: PERRL/EOMI, TMs Normal, Normal ENT Inspection, Pharynx Normal Neck: Full Range of Motion, Normal Inspection, Non Tender, Supple Respiratory: Chest Non Tender, Lungs Clear, Normal Breath Sounds Cardiovascular: Regular Rate, Rhythm, No Edema, No Gallop Gastrointestinal: Normal Bowel Sounds, No Organomegaly, No Pulsatile Mass, Non Tender Back: Normal Inspection, No CVA Tenderness Extremity: Normal Capillary Refill, Normal Inspection, Normal Range of Motion, Non Tender Neurologic/Psychiatric: Alert, Oriented x3, No Motor/Sensory Deficits Skin: Normal Color (ASHLEE SNIDER) Progress/Results/Core Measures Suspected Sepsis SIRS Temperature: Pulse: 78 Respiratory Rate: 18 Laboratory Tests 08/29/21 14:55: White Blood Count 5.3 Blood Pressure 178 /108 Mean: 131 Laboratory Tests 08/29/21 14:55: Creatinine 1.30, Platelet Count 208, Total Bilirubin 0.4 (ASHLEE SNIDER) Results/Orders Lab Results Laboratory Tests Test 08/29/21 14:32 08/29/21 14:55 08/29/21 16:16 Range/Units Glucometer 65 L 115 H 70-110 MG/DL White Blood Count 5.3 4.3-11.0 10^3/uL Red Blood Count 5.25 H 3.80-5.11 10^6/uL Hemoglobin 14.3 11.5-16.0 g/dL Hematocrit 47 35-52 % Mean Corpuscular Volume 89 80-99 fL Mean Corpuscular Hemoglobin 27 25-34 pg Mean Corpuscular Hemoglobin Concent 31 L 32-36 g/dL Red Cell Distribution Width 15.0 H 10.0-14.5 % Platelet Count 208 130-400 10^3/uL Mean Platelet Volume 10.3 9.0-12.2 fL Immature Granulocyte % (Auto) 0 % Neutrophils (%) (Auto) 60 42-75 % Lymphocytes (%) (Auto) 25 12-44 % Monocytes (%) (Auto) 10 0-12 % Eosinophils (%) (Auto) 4 0-10 % Basophils (%) (Auto) 0 0-10 % Neutrophils # (Auto) 3.2 1.8-7.8 10^3/uL Lymphocytes # (Auto) 1.3 1.0-4.0 10^3/uL Monocytes # (Auto) 0.5 0.0-1.0 10^3/uL Eosinophils # (Auto) 0.2 0.0-0.3 10^3/uL Basophils # (Auto) 0.0 0.0-0.1 10^3/uL Immature Granulocyte # (Auto) 0.0 0.0-0.1 10^3/uL Sodium Level 142 135-145 MMOL/L Potassium Level 4.2 3.6-5.0 MMOL/L Chloride Level 104 98-107 MMOL/L Carbon Dioxide Level 28 21-32 MMOL/L Anion Gap 10 5-14 MMOL/L Blood Urea Nitrogen 33 H 7-18 MG/DL Creatinine 1.30 0.60-1.30 MG/DL Estimat Glomerular Filtration Rate 40 BUN/Creatinine Ratio 25 Glucose Level 62 L 70-105 MG/DL Calcium Level 10.0 8.5-10.1 MG/DL Corrected Calcium 9.8 8.5-10.1 MG/DL Total Bilirubin 0.4 0.1-1.0 MG/DL Aspartate Amino Transf (AST/SGOT) 28 5-34 U/L Alanine Aminotransferase (ALT/SGPT) 20 0-55 U/L Alkaline Phosphatase 72 40-136 U/L Total Protein 7.5 6.4-8.2 GM/DL Albumin 4.3 3.2-4.5 GM/DL (DAVID GRIMALDO MD) Vital Signs/I&O 08/29/21 08/29/21 14:23 16:27 Temp 35.1 Pulse 78 76 Resp 18 18 B/P (MAP) 178/108 (131) 144/87 Pulse Ox 98 O2 Delivery Room Air Room Air (DAVID GRIMALDO MD) Vital Signs/I&O Capillary Refill : Less Than 3 Seconds (ASHLEE SNIDER) Blood Pressure Mean: 131 Point of Care Testing Finger Stick Blood Glucose: 65 Blood Glucose Action Taken: RN AND HEATING AND VENTILATION ENGINEER NOTIFIED (ASHLEE SNIDER) Departure Communication (Admissions) Patient arrival has no current complaints. Recently increased her Jardiance and actos which may have increased the effect of her insulin. Currently on a fast acting insulin and long-acting insulin. Initial blood sugar 67. Improvement to 115 through over a 2-hour. Patient did eat here in the ED. She had no current complaints. Lab work was otherwise unremarkable. Patient resting comfortably. Recommend recheck within another 30 to 45 minutes. Patient refused and is wanting to go home. She states she monitors her sugar quite often. She does have her own monitor. Type II diabetic. Discussed monitoring over the next 6 to 8 hours. Continue with eating if need be. If any worsening symptoms strongly recommend return back to ED. Discussed with patient if her blood sugar continues to decrease may need supplement IV D50 or even a D10 drip. Patient acknowledges. She will follow up with her primary care physician for further evaluation. Discussed possibly decreasing the amount of her Jardiance and Actos back to her previous level. No recent infection. No other change in medication. (ASHLEE SNIDER) Impression Primary Impression: Hypoglycemia Disposition: 01 HOME, SELF-CARE Condition: Stable Departure-Patient Inst. Decision time for Depature: 16:23 (ASHLEE SNIDER) Referrals: [facility],LOCAL PHYSICIAN (PCP) Primary Care Physician Patient Instructions: Low Blood Sugar in People With Diabetes ATTENDING PHYSICIAN NOTE: I was physically present as attending physician in the emergency department during the care of this patient, but I was not directly involved in the decision making or delivery of care for this patient. (DAVID GRIMALDO MD) ASHLEE SNIDER Aug 29, 2021 14:56 DAVID GRIMALDO MD Aug 29, 2021 19:15
[2021-08-29 15:23] LABS: BASOPHILS % (AUTO) 0 % (0-10); EOSINOPHILS # (AUTO) 0.2 10^3/uL (0.0-0.3); EOSINOPHILS % (AUTO) 4 % (0-10); HEMATOCRIT 47 % (35-52); HEMOGLOBIN 14.3 g/dL (11.5-16.0); LYMPHOCYTES # (AUTO) 1.3 10^3/uL (1.0-4.0); LYMPHOCYTES % (AUTO) 25 % (12-44); MEAN CORPUSCULAR HEMOGLOBIN 27 pg (25-34); MEAN CORPUSCULAR HGB CONC 31 g/dL (32-36); MEAN CORPUSCULAR VOLUME 89 fL (80-99); MEAN PLATELET VOLUME 10.3 fL (9.0-12.2); MONOCYTES # (AUTO) 0.5 10^3/uL (0.0-1.0); MONOCYTES % (AUTO) 10 % (0-12); NEUTROPHILS # (AUTO) 3.2 10^3/uL (1.8-7.8); NEUTROPHILS % (AUTO) 60 % (42-75); PLATELET COUNT 208 10^3/uL (130-400); WHITE BLOOD COUNT 5.3 10^3/uL (4.3-11.0)
[2021-08-29 15:31] LABS: ALBUMIN 4.3 GM/DL (3.2-4.5); POTASSIUM 4.2 MMOL/L (3.6-5.0)
[2021-08-29 15:34] LABS: TOTAL PROTEIN 7.5 GM/DL (6.4-8.2)
[2021-08-29 15:36] LABS: BILIRUBIN,TOTAL 0.4 MG/DL (0.1-1.0)
[2021-08-29 15:38] LABS: CREATININE SERUM 1.3 MG/DL (0.60-1.30)
[2021-08-29 16:27] VITALS: BP 144/87
== END 2021-08-29 16:29 | disposition home or self-care (01) ==
LOC: EDUNIT# 14:17 → ER 14:20
DX: E11.649 Type 2 diabetes mellitus with hypoglycemia without coma (principal); I10 Essential (primary) hypertension; K21.9 Gastro-esophageal reflux disease without esophagitis; E03.9 Hypothyroidism, unspecified; Z86.73 Personal history of transient ischemic attack (TIA), and cerebral infarction without residual deficits; Z79.890 Hormone replacement therapy; Z79.4 Long term (current) use of insulin
CPT/HCPCS: 36415; 80053; 82947; 85025

== ENCOUNTER 2021-09-02 11:13 | Outpatient (RCR) | payer MEDICARE, OTHER | END 2021-09-30 | disposition home or self-care (01) | LOC: ONC 11:13 | PROVIDERS: ATTEND Internal Medicine Hematology & Oncology | DX: Z45.2 Encounter for adjustment and management of vascular access device (principal); C82.88 Other types of follicular lymphoma, lymph nodes of multiple sites; N20.0 Calculus of kidney; I10 Essential (primary) hypertension; E78.5 Hyperlipidemia, unspecified; E66.9 Obesity, unspecified; K21.9 Gastro-esophageal reflux disease without esophagitis; R73.9 Hyperglycemia, unspecified; Z79.899 Other long term (current) drug therapy; Z68.31 Body mass index [BMI] 31.0-31.9, adult | CPT/HCPCS: 96523 ==

== ENCOUNTER 2021-10-07 10:39 | Outpatient (RCR) | payer MEDICARE, OTHER ==
[2021-10-07 11:35] LABS: BASOPHILS % (AUTO) 0 % (0-10); EOSINOPHILS # (AUTO) 0.2 10^3/uL (0.0-0.3); EOSINOPHILS % (AUTO) 4 % (0-10); HEMATOCRIT 44 % (35-52); HEMOGLOBIN 13.7 g/dL (11.5-16.0); LYMPHOCYTES # (AUTO) 0.8 10^3/uL (1.0-4.0); LYMPHOCYTES % (AUTO) 22 % (12-44); MEAN CORPUSCULAR HEMOGLOBIN 27 pg (25-34); MEAN CORPUSCULAR HGB CONC 31 g/dL (32-36); MEAN CORPUSCULAR VOLUME 86 fL (80-99); MEAN PLATELET VOLUME 10.5 fL (9.0-12.2); MONOCYTES # (AUTO) 0.3 10^3/uL (0.0-1.0); MONOCYTES % (AUTO) 9 % (0-12); NEUTROPHILS # (AUTO) 2.4 10^3/uL (1.8-7.8); NEUTROPHILS % (AUTO) 65 % (42-75); PLATELET COUNT 165 10^3/uL (130-400); WHITE BLOOD COUNT 3.8 10^3/uL (4.3-11.0)
[2021-10-07 11:58] LABS: ALBUMIN 3.9 GM/DL (3.2-4.5); BILIRUBIN,TOTAL 0.4 MG/DL (0.1-1.0); CALCIUM 9.5 MG/DL (8.5-10.1); CREATININE SERUM 1.29 MG/DL (0.60-1.30); TOTAL PROTEIN 6.9 GM/DL (6.4-8.2)
== END 2021-10-28 | disposition home or self-care (01) ==
LOC: ONC 10:39
PROVIDERS: ATTEND Internal Medicine Hematology & Oncology
DX: Z45.2 Encounter for adjustment and management of vascular access device (principal); C82.90 Follicular lymphoma, unspecified, unspecified site; I10 Essential (primary) hypertension; E78.5 Hyperlipidemia, unspecified; R73.9 Hyperglycemia, unspecified; K21.9 Gastro-esophageal reflux disease without esophagitis; E66.9 Obesity, unspecified; Z79.899 Other long term (current) drug therapy; Z68.31 Body mass index [BMI] 31.0-31.9, adult
CPT/HCPCS: 80053; 85025; 96523; G0463; 36591; 99213

== ENCOUNTER 2021-12-05 12:37 | Outpatient (RCR) | payer MEDICARE, OTHER ==
[~2021-12-05 12:37] MED LIST changes: +OMEP20TA56 PO; -OMEP20TA7 PO
[2021-12-05] MEDS ORDERED: HEParin (CENTRAL IV FLUSH) 500 UNIT/5 ML SYR ONE (12:59)
== END 2021-12-28 | disposition home or self-care (01) ==
LOC: ONC 12:37
PROVIDERS: ATTEND Internal Medicine Hematology & Oncology
DX: Z45.2 Encounter for adjustment and management of vascular access device (principal); C82.90 Follicular lymphoma, unspecified, unspecified site; I10 Essential (primary) hypertension; E78.5 Hyperlipidemia, unspecified; R73.9 Hyperglycemia, unspecified; K21.9 Gastro-esophageal reflux disease without esophagitis; E66.9 Obesity, unspecified; Z79.899 Other long term (current) drug therapy; Z68.31 Body mass index [BMI] 31.0-31.9, adult
CPT/HCPCS: 36591

== ENCOUNTER 2022-01-09 11:55 | Outpatient (RCR) | payer MEDICARE, OTHER | END 2022-01-28 | disposition home or self-care (01) | LOC: ONC 11:55 | PROVIDERS: ATTEND Internal Medicine Hematology & Oncology | DX: Z45.2 Encounter for adjustment and management of vascular access device (principal); C82.90 Follicular lymphoma, unspecified, unspecified site; I10 Essential (primary) hypertension; E78.5 Hyperlipidemia, unspecified; R73.9 Hyperglycemia, unspecified; K21.9 Gastro-esophageal reflux disease without esophagitis; E66.9 Obesity, unspecified; Z79.899 Other long term (current) drug therapy; Z68.31 Body mass index [BMI] 31.0-31.9, adult | CPT/HCPCS: 96523 ==

== ENCOUNTER 2022-02-20 12:18 | Outpatient (RCR) | payer MEDICARE, OTHER ==
[2022-02-20] MEDS ORDERED: HEParin (CENTRAL IV FLUSH) 500 UNIT/5 ML SYR ONE (12:45)
== END 2022-02-27 | disposition home or self-care (01) ==
LOC: ONC 12:18
PROVIDERS: ATTEND Internal Medicine Hematology & Oncology
DX: Z45.2 Encounter for adjustment and management of vascular access device (principal); C82.90 Follicular lymphoma, unspecified, unspecified site; I10 Essential (primary) hypertension; E78.5 Hyperlipidemia, unspecified; R73.9 Hyperglycemia, unspecified; K21.9 Gastro-esophageal reflux disease without esophagitis; E66.9 Obesity, unspecified; Z79.899 Other long term (current) drug therapy; Z68.31 Body mass index [BMI] 31.0-31.9, adult
CPT/HCPCS: 96523

== ENCOUNTER 2022-04-10 12:34 | Outpatient (RCR) | payer MEDICARE, OTHER ==
[2022-04-10 13:25] LABS: MONOCYTES # (AUTO) 0.3 10^3/uL (0.0-1.0)
[2022-04-10 13:27] LABS: BASOPHILS % (AUTO) 0 % (0-10); EOSINOPHILS # (AUTO) 0.2 10^3/uL (0.0-0.3); EOSINOPHILS % (AUTO) 5 % (0-10); HEMATOCRIT 36 % (35-52); HEMOGLOBIN 11.5 g/dL (11.5-16.0); LYMPHOCYTES # (AUTO) 0.8 10^3/uL (1.0-4.0); LYMPHOCYTES % (AUTO) 24 % (12-44); MEAN CORPUSCULAR HEMOGLOBIN 29 pg (25-34); MEAN CORPUSCULAR HGB CONC 32 g/dL (32-36); MEAN CORPUSCULAR VOLUME 88 fL (80-99); MEAN PLATELET VOLUME 10.5 fL (9.0-12.2); MONOCYTES % (AUTO) 8 % (0-12); NEUTROPHILS % (AUTO) 61 % (42-75); PLATELET COUNT 121 10^3/uL (130-400); WHITE BLOOD COUNT 3.3 10^3/uL (4.3-11.0)
[2022-04-10 13:50] LABS: ALBUMIN 3.8 GM/DL (3.2-4.5); BILIRUBIN,TOTAL 0.6 MG/DL (0.1-1.0); CALCIUM 9.5 MG/DL (8.5-10.1); CREATININE SERUM 1.19 MG/DL (0.60-1.30); POTASSIUM 4.3 MMOL/L (3.6-5.0); TOTAL PROTEIN 6.2 GM/DL (6.4-8.2)
== END 2022-04-30 14:01 | disposition home or self-care (01) ==
LOC: ONC 12:34
PROVIDERS: ATTEND Internal Medicine Hematology & Oncology
DX: Z45.2 Encounter for adjustment and management of vascular access device (principal); C82.90 Follicular lymphoma, unspecified, unspecified site; I10 Essential (primary) hypertension; E78.5 Hyperlipidemia, unspecified; R73.9 Hyperglycemia, unspecified; K21.9 Gastro-esophageal reflux disease without esophagitis; E66.9 Obesity, unspecified; Z79.899 Other long term (current) drug therapy; Z68.31 Body mass index [BMI] 31.0-31.9, adult
CPT/HCPCS: 80053; 83615; 85025; G0463; 36591

== ENCOUNTER → 2022-04-15 | Outpatient (CLI) | payer MEDICARE, OTHER ==
[~2022-04-15] MED LIST changes: +CATHETER FLUSH 10 ML SYR IV PRN; +HOLD METFORMIN - RECEIVED CONTRAST 20 ML VIAL IV SCH; +IOHEXOL 350 MG/ML 100 ML (OMNIPAQUE 350) VIAL IV ONE; +NS 100 ML (IVPB) BAG IV ONE
--- NOTE | 2022-04-15 12:44 | Diagnostic Imaging Report ---
PROCEDURE: CT chest, abdomen, and pelvis with contrast. TECHNIQUE: Multiple contiguous axial images were obtained through the chest, abdomen, and pelvis after the administration of intravenous contrast. Auto Exposure Controls were utilized during the CT exam to meet ALARA standards for radiation dose reduction. INDICATION: History of lymphoma, for follow-up. COMPARISON: Exam is compared with study 02/10/2020. FINDINGS: CHEST: There is new mild bilateral axillary lymphadenopathy. The largest node on the right measures 1.9 x 1.6 cm, the largest node on the left measures 9 mm x 7 mm. There is no hilar or mediastinal lymphadenopathy. No lung mass. No pulmonary consolidation. No findings of pneumonia or edema. There is no pleural or pericardial effusion. Heart and aorta appeared unremarkable. There are coronary artery atherosclerotic vascular calcifications. No suspicious or acute soft tissue or osseous chest wall pathology. ABDOMEN AND PELVIS: There is new mild periaortic retroperitoneal adenopathy. Nodes have developed below the level of the renal arteries. The largest left-sided node near the aorta's bifurcation measured 1.6 x 1.1 cm. The largest aortocaval node has a diameter of 1.1 cm. The precaval node is 1.2 x 1.0 cm. There is some new mild right common iliac chain adenopathy where the largest node was 12 mm x 11 mm. Some new pelvic sidewall adenopathy. The largest node on the left measures 2.3 x 1.7 cm. Right-sided pelvic sidewall node at the obturator level medial to the acetabulum is 2.4 x 1.3 cm. There is a distal left external iliac elongated node, 2.8 x 1.5 cm. There is new mild bilateral inguinal adenopathy, the largest node on the right 1.7 x 1.3 cm. There is also a new right subcutaneous nodule lateral and superficial to sartorius, 1.7 x 1.4 cm. There is no bowel, biliary, or urinary tract obstruction. There is noninflamed sigmoid diverticulosis. There is a fatty umbilical hernia, noninflamed. Spleen size is normal and nonfocal. The adrenals and pancreas are negative. The gallbladder and bile ducts are normal. There is nonobstructing right-sided nephrolithiasis and a chronic unruptured benign fatty nodule at the upper pole of the right kidney consistent with angiomyolipoma, 1.3 cm. No suspicious bony lesion. IMPRESSION: Interval development of mild axillary, abdominal, and pelvic lymphadenopathy. None of the nodes are suspiciously enlarged; however, these are all new and more numerous than typically expected as well as mildly prominent, and given the history, neoplastic recurrence could not be excluded. Metabolic PET/CT may be of benefit. Right inguinal and lateral subcutaneous nodules may also provide appropriate targets for percutaneous sampling if desired. Otherwise, chronic benign findings detailed above include: Nonobstructing nephrolithiasis, benign right renal angiomyolipoma, noninflamed colonic diverticulosis, and cholecystolithiasis without evidence for cholecystitis. Dictated by: Dictated on workstation # [id number]
== END ==
LOC: RAD 11:07
PROVIDERS: ATTEND Internal Medicine Hematology & Oncology
DX: D17.71 Benign lipomatous neoplasm of kidney (principal); N20.0 Calculus of kidney; K57.30 Diverticulosis of large intestine without perforation or abscess without bleeding; K80.20 Calculus of gallbladder without cholecystitis without obstruction; Z85.72 Personal history of non-Hodgkin lymphomas
CPT/HCPCS: 71260; 74177

== ENCOUNTER 2022-05-01 12:47 | Outpatient (RCR) | payer MEDICARE, OTHER ==
[~2022-05-01 12:47] MED LIST changes: -CATHETER FLUSH 10 ML SYR IV PRN; -HOLD METFORMIN - RECEIVED CONTRAST 20 ML VIAL IV SCH; -IOHEXOL 350 MG/ML 100 ML (OMNIPAQUE 350) VIAL IV ONE; -NS 100 ML (IVPB) BAG IV ONE
== END 2022-05-30 | disposition home or self-care (01) ==
LOC: ONC 12:47
PROVIDERS: ATTEND Internal Medicine Hematology & Oncology
DX: C82.90 Follicular lymphoma, unspecified, unspecified site (principal); I10 Essential (primary) hypertension; E78.5 Hyperlipidemia, unspecified; R73.9 Hyperglycemia, unspecified; K21.9 Gastro-esophageal reflux disease without esophagitis; E66.9 Obesity, unspecified; Z79.899 Other long term (current) drug therapy
CPT/HCPCS: 99213

== ENCOUNTER → 2022-05-26 | Outpatient (CLI) | payer MEDICARE, OTHER ==
--- NOTE | 2022-05-26 15:08 | Diagnostic Imaging Report ---
INDICATION: B-cell lymphoma, restaging. Serum blood glucose level time injection is 147 mg/dL. Patient was administered 13.7 mCi F-18 FDG intravenously and whole body PET imaging was performed. In addition, noncontrast CT was performed for attenuation correction and anatomic correlation. Correlation is made with prior PET/CT study from 03/09/2018. There is symmetric activity throughout the brain. There has been significant response to therapy when compared with prior PET/CT study from 03/09/2018. Multiple cervical lymph nodes have reduced in size. There is a left-sided mildly hypermetabolic lymph node with SUV maximum of approximately 4.8. This compares to 12.5 SUV max of the larger lymph nodes on prior exam. SUV max of the right supraclavicular node is 4.7. There has been significant improvement in bilateral axillary lymph nodes, a dominant lymph node in the right axilla has SUV max of 7.0. No definite hypermetabolic foci in the mediastinum or hilar identified on today's exam. No hypermetabolic foci in the central retroperitoneum is identified on today's study. Bulky iliac hypermetabolic lymphadenopathy has markedly improved. Bilateral inguinal hypermetabolic lymphadenopathy has markedly improved. Bilateral lower extremities are unremarkable. IMPRESSION: There has been significant improvement in hypermetabolic lymphadenopathy within the neck, chest, abdomen and pelvis when compared with prior PET/CT study from 03/09/2018. Dictated by: Dictated on workstation # [id number]
== END ==
LOC: RAD 05-19 08:45
PROVIDERS: ATTEND Internal Medicine Hematology & Oncology
DX: C85.10 Unspecified B-cell lymphoma, unspecified site (principal)
CPT/HCPCS: 78816; A9552

== ENCOUNTER 2022-06-05 12:35 | Outpatient (RCR) | payer MEDICARE, OTHER ==
[2022-06-23] MEDS ORDERED: CARB15DR OU (14:28)
[2022-06-23] MEDS ORDERED: ALIR75PE5 SQ (14:30)
[2022-06-23] MEDS ORDERED: INSU100I74 SQ (14:32)
[2022-06-23] MEDS ORDERED: PIOG45TA65 PO (14:33)
[2022-06-23] MEDS ORDERED: DICL20GE TP (14:34)
[2022-06-23] MEDS ORDERED: DEXT-157 PO (14:37)
[2022-06-23] MEDS ORDERED: UREA85CR23 TP (14:41)
[2022-06-25] MEDS ORDERED: GANC5GEL2 OS (10:47)
[2022-06-25] MEDS ORDERED: VALA10007 PO (10:47)
[2022-06-25] MEDS ORDERED: PRED5DRO17 OS (10:47)
[2022-06-30] MEDS ORDERED: VALA10007 PO (09:53)
[2022-06-30] MEDS ORDERED: PRED5DRO17 OP (09:58)
[2022-06-30] MEDS ORDERED: GANC5GEL2 OS (10:02)
[2022-06-30] MEDS ORDERED: CEPH500T PO (10:59)
== END 2022-06-30 | disposition home or self-care (01) ==
LOC: ONC 12:35
PROVIDERS: ATTEND Internal Medicine Hematology & Oncology
DX: C82.90 Follicular lymphoma, unspecified, unspecified site (principal); I10 Essential (primary) hypertension; E78.5 Hyperlipidemia, unspecified; R73.9 Hyperglycemia, unspecified; K21.9 Gastro-esophageal reflux disease without esophagitis; E66.9 Obesity, unspecified; Z79.899 Other long term (current) drug therapy
CPT/HCPCS: 99213

== ENCOUNTER 2022-06-23 07:03 | Inpatient (IN) | payer MEDICARE, OTHER ==
[~2022-06-23] VITALS: Ht 172 cm; Wt 103.4 kg
[2022-06-23] MEDS ORDERED: ONDANSETRON 4 MG/2 ML (SDV) Z0FRAN ONE (07:39)
--- NOTE | 2022-06-23 07:39 | ED General ---
General Chief Complaint: Skin/Wound Problems Stated Complaint: SWELLING ON FACE/UPSET STOMACH Source of Information: Patient, Family (Son) Exam Limitations: No Limitations History of Present Illness Date Seen by Provider: Jun 23, 2022 Time Seen by Provider: 07:34 Initial Comments Patient is an 82-year-old diabetic who presents to the emergency department today with a chief complaint of severe nausea and vomiting, generalized malaise and fatigue, not feeling well for the last 4 days. She developed a rash to her face a couple of days ago. She states she does have pain to her face. She denies fevers or chills. No abdominal pain. No dysuria, urgency or frequency. No diarrhea. She wears a diabetic monitor on her right upper shoulder. She tells me that she has recently had bedbugs in her home. She has had itching legs. She states that her monitor does give her low limits and high limit alarms. She does not recall any recently. Her son is present at the bedside, she lives with him. He states she has not eaten any food since Thursday. She has been sipping on fluids. She denies any recent falls. [facility] She cannot recall the last time she saw her doctor. On my entry into the room the patient is satting 82 to 83% on room air. She is not tachycardic her blood pressure is good. All other review of systems reviewed and negative except as stated. Timing/Duration: 2-3 Days Severity: Moderate Associated Systoms: Malaise, Nausea/Vomiting, Weakness Allergies and Home Medications Allergies Coded Allergies: Nkpymfs-HAU-DmZ Reductase Inhibitor (Unverified Allergy, Mild, MUSCLE PAIN , 03/09/18) adhesive (Unverified Allergy, Unknown, 03/09/18) lisinopril (Unverified Adverse Reaction, Mild, COUGH, 03/09/18) Patient Home Medication List Home Medication List Reviewed: Yes Carboxymethylcellulose Sodium (Refresh Liquigel) 15 Ml Drp.lq.gel, 15 ML OP Q3HR, (Reported) Entered as Reported by: CHRISTIANO LOPEZ on 10/30/16 1252 Carvedilol (Carvedilol) 12.5 Mg Tablet, 6.25 MG PO BID, (Reported) Entered as Reported by: CHRISTIANO LOPEZ on 10/30/16 1252 Cholecalciferol (Vitamin D3) (Vitamin D3) 1,000 Unit Capsule, 2,000 UNIT PO DAILY, (Reported) Entered as Reported by: CHRISTIANO LOPEZ on 10/30/16 1252 Hydrochlorothiazide (Hydrochlorothiazide) 25 Mg Tablet, 25 MG PO EVERY OTHER DAY, (Reported) Entered as Reported by: CHRISTIANO LOPEZ on 03/09/18 1438 Hydrocodone Bit/Acetaminophen (Lortab 5 Mg Tablet) 1 Tab Tab, 1-2 TAB PO 4-6HR PRN for PAIN Prescribed by: JESSI FIGUEROA on 03/10/18 1321 Insulin Detemir (Levemir Flextouch) 100 Unit/1 Ml Insuln.pen, 13 UNIT SQ BID, (Reported) Entered as Reported by: CHRISTIANO LOPEZ on 03/09/18 1438 Levothyroxine Sodium (Levothyroxine Sodium) 75 Mcg Tablet, 75 MCG PO DAILY, (Reported) Entered as Reported by: CHRISTIANO LOPEZ on 03/09/18 1438 Loratadine (Loratadine) 10 Mg Tablet, 10 MG PO DAILY, (Reported) Entered as Reported by: CHRISTIANO LOPEZ on 03/09/18 1438 Meloxicam (Meloxicam) 15 Mg Tablet, 15 MG PO DAILY, (Reported) Entered as Reported by: CHRISTIANO LOPEZ on 10/30/16 1252 Metformin HCl (Metformin HCl) 500 Mg Tablet, 500 MG PO BID, (Reported) Entered as Reported by: CHRISTIANO LOPEZ on 10/30/16 1252 Omeprazole (Omeprazole) 20 Mg Tablet.dr, 20 MG PO DAILY, (Reported) Entered as Reported by: CHRISTIANO LOPEZ on 03/09/18 1438 Oxybutynin Chloride (Oxybutynin Chloride ER) 10 Mg Tab.er.24, 10 MG PO DAILY, (Reported) Entered as Reported by: CHRISTIANO LOPEZ on 10/30/16 1252 Polyethylene Glycol 3350 (Miralax) 17 Gm Powd.pack, 17 GM PO DAILY, (Reported) Entered as Reported by: CHRISTIANO LOPEZ on 10/30/16 1257 Saxagliptin HCl (Onglyza) 5 Mg Tablet, 5 MG PO DAILY, (Reported) Entered as Reported by: CHRISTIANO LOPEZ on 03/09/18 1438 Urea (Urea) 255 Gm Cream..g., 255 GM TP BID, (Reported) Entered as Reported by: CHRISTIANO LOPEZ on 10/30/16 1252 Vit C/E/Zn/Coppr/Lutein/Zeaxan (Preservision Areds 2 Softgel) 1 Each Capsule, 2 EACH PO DAILY, (Reported) Entered as Reported by: CHRISTIANO LOPEZ on 10/30/16 1252 Review of Systems Review of Systems Constitutional: dizziness, malaise, weakness EENTM: eye pain (left) Respiratory: no symptoms reported Cardiovascular: no symptoms reported Gastrointestinal: nausea, vomiting Genitourinary: no symptoms reported : No Musculoskeletal: no symptoms reported Skin: rash (left upper face) All Other Systems Reviewed Negative Unless Noted: Yes Past Jsemytq-Fnlfty-Dlfgep Hx Patient Social History Tobacco Use?: No Substance use?: No Alcohol Use?: No Pt feels they are or have been: No Immunizations Up To Date Tetanus Booster (TDap): Unknown Influenza Vaccine Up-to-Date: No; Not Current Seasonal Allergies Seasonal Allergies: Yes (MILD) Past Medical History Adenoidectomy, Bladder Surgery, Hysterectomy, Tonsillectomy High Cholesterol, Hypertension Stroke Reproductive Disorders: No 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 0.0oz. 96.163893dt; 34.00 BMI Method:Stated General Appearance: No Apparent Distress, WD/WN Eyes: Right Eye Normal Inspection; Left Eye Other (conjunctival injection; periororbital edema and erythema); Bilateral Eye PERRL, Bilateral Eye EOMI HEENT: Other (dry oral mucosa; left TM occluded by cerumen, no lesions appreciated on my limited visualization of the EAC on the left) Respiratory: Lungs Clear, Normal Breath Sounds, No Accessory Muscle Use, No Respiratory Distress Cardiovascular: Regular Rate, Rhythm, Normal Peripheral Pulses Gastrointestinal: Non Tender, Soft, Abnormal Bowel Sounds (hyperactive) Extremity: Normal Capillary Refill, Normal Inspection, Pedal Edema Neurologic/Psychiatric: Alert, Oriented x3, No Motor/Sensory Deficits, Normal Mood/Affect, 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 Norm as Tested Skin: Normal Color, Warm/Dry, Rash (erythematous rash to the left upper face with blistering, yellow) Focused Exam Lactate Level 06/23/22 07:40: Lactic Acid Level 1.70 Lactic Acid Level Laboratory Tests Test 06/23/22 07:40 Lactic Acid Level 1.70 MMOL/L (0.50-2.00) Progress/Results/Core Measures Suspected Sepsis SIRS Temperature: Pulse: Respiratory Rate: Laboratory Tests 06/23/22 07:25: White Blood Count 5.3 Blood Pressure / Mean: 06/23/22 07:40: Lactic Acid Level 1.70 Laboratory Tests 06/23/22 07:25: Creatinine 1.31H, INR Comment 1.0, Platelet Count 153, Total Bilirubin 0.8 Results/Orders Lab Results Laboratory Tests Test 06/23/22 07:25 06/23/22 07:40 06/23/22 08:25 Range/Units White Blood Count 5.3 4.3-11.0 10^3/uL Red Blood Count 4.99 3.80-5.11 10^6/uL Hemoglobin 13.8 11.5-16.0 g/dL Hematocrit 43 35-52 % Mean Corpuscular Volume 86 80-99 fL Mean Corpuscular Hemoglobin 28 25-34 pg Mean Corpuscular Hemoglobin Concent 32 32-36 g/dL Red Cell Distribution Width 15.2 H 10.0-14.5 % Platelet Count 153 130-400 10^3/uL Mean Platelet Volume 10.3 9.0-12.2 fL Immature Granulocyte % (Auto) 0 % Neutrophils (%) (Auto) 69 42-75 % Lymphocytes (%) (Auto) 24 12-44 % Monocytes (%) (Auto) 7 0-12 % Eosinophils (%) (Auto) 0 0-10 % Basophils (%) (Auto) 0 0-10 % Neutrophils # (Auto) 3.6 1.8-7.8 10^3/uL Lymphocytes # (Auto) 1.3 1.0-4.0 10^3/uL Monocytes # (Auto) 0.4 0.0-1.0 10^3/uL Eosinophils # (Auto) 0.0 0.0-0.3 10^3/uL Basophils # (Auto) 0.0 0.0-0.1 10^3/uL Immature Granulocyte # (Auto) 0.0 0.0-0.1 10^3/uL Prothrombin Time 13.3 12.2-14.7 SEC INR Comment 1.0 0.8-1.4 Activated Partial Thromboplast Time 24 24-35 SEC Sodium Level 139 135-145 MMOL/L Potassium Level 4.3 3.6-5.0 MMOL/L Chloride Level 102 98-107 MMOL/L Carbon Dioxide Level 23 21-32 MMOL/L Anion Gap 14 5-14 MMOL/L Blood Urea Nitrogen 26 H 7-18 MG/DL Creatinine 1.31 H 0.60-1.30 MG/DL Estimat Glomerular Filtration Rate 41 BUN/Creatinine Ratio 20 Glucose Level 343 H 70-105 MG/DL Calcium Level 10.0 8.5-10.1 MG/DL Corrected Calcium 10.2 H 8.5-10.1 MG/DL Total Bilirubin 0.8 0.1-1.0 MG/DL Aspartate Amino Transf (AST/SGOT) 19 5-34 U/L Alanine Aminotransferase (ALT/SGPT) 17 0-55 U/L Alkaline Phosphatase 58 40-136 U/L Total Protein 6.9 6.4-8.2 GM/DL Albumin 3.8 3.2-4.5 GM/DL Lactic Acid Level 1.70 0.50-2.00 MMOL/L Influenza Type A (RT-PCR) Not Detected Not Detecte Influenza Type B (RT-PCR) Not Detected Not Detecte SARS-CoV-2 RNA (RT-PCR) Not Detected Not Detecte My Orders Orders - MAXWELL ORELLANA MD Ondansetron Injection (Zofran Injectio (06/23/22 07:39) Cbc With Automated Diff (06/23/22 07:52) Comprehensive Metabolic Panel (06/23/22 07:52) Blood Culture (06/23/22 07:52) Sputum Culture (06/23/22 07:52) Urinalysis (06/23/22 07:52) Urine Culture (06/23/22 07:52) Protime With Inr (06/23/22 07:52) Partial Thromboplastin Time (06/23/22 07:52) Chest 1 View, Ap/Pa Only (06/23/22 07:52) Ed Iv/Invasive Line Start (06/23/22 07:52) Ed Iv/Invasive Line Start (06/23/22 07:52) Vital Signs Adult Sepsis Patie Q15M (06/23/22 07:52) O2 (06/23/22 07:52) Remove Rings In Anticipation O (06/23/22 07:52) Lactic Acid Analyzer (06/23/22 07:52) Tetracaine 0.5% Ophth Chel Sdv (Tetracai (06/23/22 08:00) Fluorescein Strips (Rwmie-G-Wueshq) (06/23/22 08:00) Ns Iv 1000 Ml (Sodium Chloride 0.9%) (06/23/22 08:00) Accucheck Stat ONCE (06/23/22 07:52) Covid 19 Inhouse Test (06/23/22 07:52) Influenza A And B By Pcr (06/23/22 07:52) Isolation Central Supply Req (06/23/22 07:52) Ondansetron Injection (Zofran Injectio (06/23/22 08:00) Acyclovir Injection (Zovirax Injection) (06/23/22 11:33) Ondansetron Injection (Zofran Injectio (06/23/22 11:45) Fentanyl Inj (Sublimaze Injection) (06/23/22 11:45) Ns Iv 1000 Ml (Sodium Chloride 0.9%) (06/23/22 11:45) Prednisolone 1% Ophthalmic Katya (Pred For (06/23/22 11:40) Ganciclovir 0.15% Ophth Gel (Zirgan 0.15 (06/23/22 11:40) Ed Admission (Communication) (06/23/22 11:40) Medications Given in ED Current Medications Medications Dose Ordered Sig/Williams Route Start Time Stop Time Status Last Admin Dose Admin Fluorescein Sodium 1 mg ONCE ONCE OU 06/23/22 08:00 10/24/22 08:01 DC 06/23/22 08:20 1 MG Ondansetron HCl 4 mg STK-MED ONCE .ROUTE 06/23/22 07:39 06/23/22 07:40 DC 06/23/22 07:45 4 MG Tetracaine HCl 4 ml ONCE ONCE OU 06/23/22 08:00 06/23/22 08:01 DC 06/23/22 08:20 4 ML Vital Signs/I&O Capillary Refill : Progress Note : Time: 11:51 Progress Note Patient reevaluated after labs, IV fluids. She I stained her left eye to evaluate for involvement of the conjunctive a, there does appear to be some uptake over the cornea. Discussed with Dr. Jerez who recommends Pred forte 1 to 2 drops 4 times daily as well as Zirgan 4 times daily 1/4 inch ribbon. He indicated these were not to be applied within 15 minutes of each other. Acyclovir has been ordered. I discussed the case with Dr. Wolfe who accepts the patient for observation admission to the medical floor. She is complaining of mild to moderate discomfort in the face. 25 mcg of fentanyl was ordered. She is also nauseated. We will give some Zofran. She has no clinical or objective findings concerning for sepsis at this time. She does not have disseminated zoster. Anticipate fluids, treatment of the zoster and discharged home within a couple of days. Her son is at the bedside I discussed the plan of care with him he is comfortable. All questions are sought and answered Critical Care Note Critical Care Start Time: 07:34 Departure Communication (Admissions) Time/Spoke to Admitting Phy: 11:[address] Wolfe Time/Spoke to Consulting Phy: 11:[address] Armendariz Impression Primary Impression: Herpes zoster Qualified Codes: B02.31 - Zoster conjunctivitis Additional Impressions: Ophthalmic herpes zoster Diabetes Qualified Codes: E13.39 - Other specified diabetes mellitus with other diabetic ophthalmic complication; Z79.4 - terminal gauger (current) use of insulin Disposition: ADMITTED INPATIENT Condition: Stable Admissions Decision to Admit Reason: Admit from ER (General) Decision to Admit/Date: Jun 23, 2022 Time/Decision to Admit Time: 11:49 Departure-Patient Inst. Referrals: NO,LOCAL PHYSICIAN (PCP/Family) Primary Care Physician MAXWELL ORELLANA MD Jun 23, 2022 07:39
[2022-06-23] MEDS ORDERED: FLUORESCEIN (FLUOR-I-STRIPS) 1 MG STRP OU ONE (08:00)
[2022-06-23] MEDS ORDERED: TETRACAINE 0.5% OPHTH SOLN 4 ML BTL (SINGLE DOSE ONLY) OU ONE (08:00)
[2022-06-23] MEDS ORDERED: ONDANSETRON 4 MG/2 ML (SDV) Z0FRAN IVP ONE ×2 (08:00→11:45)
[2022-06-23] MEDS ORDERED: NS IV 1000 ML 1,000 ML IV SCH ×2 (08:00→11:45)
[2022-06-23 08:05] LABS: BASOPHILS % (AUTO) 0 % (0-10); EOSINOPHILS % (AUTO) 0 % (0-10); HEMATOCRIT 43 % (35-52); HEMOGLOBIN 13.8 g/dL (11.5-16.0); LYMPHOCYTES # (AUTO) 1.3 10^3/uL (1.0-4.0); LYMPHOCYTES % (AUTO) 24 % (12-44); MEAN CORPUSCULAR HEMOGLOBIN 28 pg (25-34); MEAN CORPUSCULAR HGB CONC 32 g/dL (32-36); MEAN CORPUSCULAR VOLUME 86 fL (80-99); MEAN PLATELET VOLUME 10.3 fL (9.0-12.2); MONOCYTES # (AUTO) 0.4 10^3/uL (0.0-1.0); MONOCYTES % (AUTO) 7 % (0-12); NEUTROPHILS # (AUTO) 3.6 10^3/uL (1.8-7.8); NEUTROPHILS % (AUTO) 69 % (42-75); PLATELET COUNT 153 10^3/uL (130-400); WHITE BLOOD COUNT 5.3 10^3/uL (4.3-11.0)
[2022-06-23 08:07] LABS: ALBUMIN 3.8 GM/DL (3.2-4.5); POTASSIUM 4.3 MMOL/L (3.6-5.0)
[2022-06-23 08:10] LABS: TOTAL PROTEIN 6.9 GM/DL (6.4-8.2)
[2022-06-23 08:12] LABS: BILIRUBIN,TOTAL 0.8 MG/DL (0.1-1.0)
[2022-06-23 08:13] LABS: CREATININE SERUM 1.31 MG/DL (0.60-1.30)
[2022-06-23 08:22] LABS: PROTHROMBIN TIME PATIENT 13.3 SEC (12.2-14.7)
--- NOTE | 2022-06-23 08:39 | Diagnostic Imaging Report ---
INDICATION: Facial swelling Portable chest 8:23 AM Heart and mediastinum are normal. Lungs are clear. There are no effusions or pneumothoraces. Right IJ Port-A-Cath tip projects over the SVC. IMPRESSION: No acute abnormalities in the chest Dictated by: Dictated on workstation # [id number]
[2022-06-23] MEDS ORDERED: ACYCLOVIR INJECTION 800 MG in NS (IVPB) 250 ML IV STA (11:33)
[2022-06-23] MEDS ORDERED: GANCICLOVIR 0.15% OS STA (11:40)
[2022-06-23] MEDS ORDERED: prednisoLONE 1% OPTH (PRED FORTE) 5 ML BTL OS STA (11:40)
[2022-06-23] MEDS ORDERED: fentaNYL INJ 100 MCG/2 ML AMP IVP ONE (11:45)
[2022-06-23] MEDS ORDERED: MELATONIN 3 MG TABLET PO PRN (13:30)
[2022-06-23] MEDS ORDERED: ACETAMINOPHEN 325 MG TABLET PO PRN (13:30)
[2022-06-23] MEDS ORDERED: BISACODYL 10 MG SUPP (DULCOLAX) PR PRN (13:30)
[2022-06-23] MEDS ORDERED: NS IV 500 ML 500 ML IV PRN (13:30)
[2022-06-23] MEDS ORDERED: diphenhydrAMINE 50 MG/ML INJ (BENADRYL) IVP PRN (13:30)
[2022-06-23] MEDS ORDERED: ONDANSETRON 4 MG (ZOFRAN) ORAL DISSOLVE TAB PO PRN (13:30)
[2022-06-23] MEDS ORDERED: diphenhydrAMINE 25 MG TAB (BENADRYL) PO PRN (13:30)
[2022-06-23] MEDS ORDERED: LACTULOSE SYRUP 10GM/15ML (ENULOSE) 30ML UDC PO PRN (13:30)
[2022-06-23] MEDS ORDERED: ANTACID SUSP 30 ML UDC (MYLANTA) PO PRN (13:30)
[2022-06-23] MEDS ORDERED: CALCIUM CARBONATE 500 MG (TUMS) TAB.CHEW PO PRN (13:30)
[2022-06-23] MEDS ORDERED: ONDANSETRON 4 MG/2 ML (SDV) Z0FRAN IV PRN (13:30)
[2022-06-23] MEDS ORDERED: MILK OF MAGNESIA 400 MG/5 ML 30 ML UDC PO PRN (13:30)
[2022-06-23] MEDS ORDERED: polyethylene glycoL POWDER 17 GM (MIRALAX) PACK PO PRN (13:30)
--- NOTE | 2022-06-23 13:59 | Physical Therapy Progress Note ---
Therapy Progress Note Order received for PT evaluation. Attempted but patient and daughter refuse therapy at this time due to patient fatigue. Patient educated on the importance of therapy but continues to refuse. JACLYN GERMAN PT Jun 23, 2022 13:59
[2022-06-23] MEDS ORDERED: prednisoLONE 1% OPTH (PRED FORTE) 5 ML BTL OS SCH (14:00)
[2022-06-23] MEDS ORDERED: ACYCLOVIR INJECTION 500 MG/10 ML INJ IV SCH (14:00)
--- NOTE | 2022-06-23 14:11 | Occ Therapy Progress Note ---
Therapy Progress Note OT orders received and chart reviewed. Upon arrival to room, pt was laying in bed with eyes closed with family present. Pt stayed asleep/with eyes closed and family member requested we come back tomorrow, due to fatigue. 1 visit Noemi Aldana OT Jun 23, 2022 14:11
[2022-06-23] MEDS ORDERED: CARB15DR OU (14:28)
[2022-06-23 14:30] VITALS: BP 185/76
[2022-06-23] MEDS ORDERED: ALIR75PE5 SQ (14:30)
[2022-06-23] MEDS: ENOXAPARIN 40 MG/0.4 ML (LOVENOX) SYR SC SCH (14:30)
[2022-06-23] MEDS: NS IV 1000 ML 1,000 ML IV SCH ×2 (14:30→23:16)
[2022-06-23] MEDS ORDERED: INSU100I74 SQ (14:32)
[2022-06-23] MEDS ORDERED: PIOG45TA65 PO (14:33)
[2022-06-23] MEDS ORDERED: DICL20GE TP (14:34)
[2022-06-23] MEDS ORDERED: DEXT-157 PO (14:37)
[2022-06-23] MEDS ORDERED: UREA85CR23 TP (14:41)
[2022-06-23 16:09] VITALS: BP 175/74
[2022-06-23] MEDS: inSUlin ASPART (NovoLOG) 1 UNIT/0.01 ML (CHARGE PER UNIT) SC SCH ×2 (16:20→21:18)
[2022-06-23] MEDS: prednisoLONE 1% OPTH (PRED FORTE) 5 ML BTL OS SCH ×2 (18:15→23:15)
[2022-06-23] MEDS: GANCICLOVIR 0.15% OS SCH (18:40)
[2022-06-23 20:20] VITALS: BP 176/102
[2022-06-23] MEDS: DOCUSATE SODIUM 100 MG (COLACE) CAP PO SCH (20:42)
[2022-06-23] MEDS: SENNOSIDES 8.6 MG (SENOKOT) TAB PO SCH (20:42)
[2022-06-23] MEDS ORDERED: ACYCLOVIR 800 MG/NS 250 ML IVPB IV SCH ×2 (23:00)
[2022-06-24] VITALS (7 sets, daily range): BP systolic 144–184; BP diastolic 65–84
[2022-06-24] MEDS: GANCICLOVIR 0.15% OS SCH ×4 (00:58→17:45)
[2022-06-24] MEDS: inSUlin ASPART (NovoLOG) 1 UNIT/0.01 ML (CHARGE PER UNIT) SC SCH ×4 (05:11→21:35)
[2022-06-24] MEDS: prednisoLONE 1% OPTH (PRED FORTE) 5 ML BTL OS SCH ×4 (05:12→23:48)
[2022-06-24 06:14] LABS: CALCIUM 9.4 MG/DL (8.5-10.1); CREATININE SERUM 1.03 MG/DL (0.60-1.30); MAGNESIUM 1.8 MG/DL (1.6-2.4); POTASSIUM 3.9 MMOL/L (3.6-5.0)
[2022-06-24] MEDS: POTASSIUM CL 10MEQ/50ML IVPB 50 ML IV SCH (06:17)
[2022-06-24] MEDS: MAGNESIUM 1 GM/100 ML IVPB 100 ML IV SCH (06:17)
[2022-06-24] MEDS: KCL 20 MEQ TAB (K-DUR) PO SCH (06:18)
[2022-06-24] MEDS: LORATADINE (CLARITIN) 10 MG TAB PO SCH (09:08)
[2022-06-24] MEDS: SENNOSIDES 8.6 MG (SENOKOT) TAB PO SCH ×2 (09:09→22:06)
[2022-06-24] MEDS: LEVOTHYROXINE 75 MCG (LEVOTHROID) TABLET PO SCH (09:09)
[2022-06-24] MEDS: polyethylene glycoL POWDER 17 GM (MIRALAX) PACK PO SCH (09:09)
[2022-06-24] MEDS: DOCUSATE SODIUM 100 MG (COLACE) CAP PO SCH ×2 (09:09→21:44)
[2022-06-24] MEDS: NS IV 1000 ML 1,000 ML IV SCH ×2 (09:10→21:35)
[2022-06-24] MEDS: ACYCLOVIR 800 MG/NS 250 ML IVPB IV SCH ×4 (10:00→17:03)
[2022-06-24] MEDS: PANTOPRAZOLE 20 MG TABLET (PROTONIX) PO SCH (10:00)
[2022-06-24] MEDS: OXYBUTYNIN (DITROPAN) 5 MG TAB PO SCH (10:00)
[2022-06-24] MEDS: ARTIFICAL TEARS 0.4 ML UNIT DOSE (REFRESH PLUS) OU SCH ×4 (10:01→21:44)
--- NOTE | 2022-06-24 10:02 | Physical Therapy Progress Note ---
Therapy Progress Note Patient adamantly declined PT stating she is up with nursing to restroom and does not want to do any more activity than that. RN notified. Family present and confirms. No skilled PT indicated due to patient not actively participating. 1 ref/DC from services SAURAV BROWER PT Jun 24, 2022 10:02
--- NOTE | 2022-06-24 10:18 | Occupational Therapy Eval ---
OT Evaluation-General/PLF Medical Diagnosis Admission Date Jun 23, 2022 at 11:47 Medical Diagnosis: DM Onset Date: Jun 23, 2022 Therapy Diagnosis Therapy Diagnosis: N/a Height/Weight Height (Feet): 5 Height (Inches): 8.00 Weight (Pounds): 213 Weight (Ounces): 0.0 Precautions Precautions/Isolations: Contact Isolation, Fall Prevention Referral Physician: Tameka Referral Reason: Evaluation/Treatment Medical History Pertinent Medical History: Arthritis, CVA, DM, HTN Current History Pt came to ER with nausea, malaise and vomiting for the last 4 days. She lives with her son in a single story. She was independent with all ADLs and IADLs. She is able to drive, but her son drives her around to appointments and to the grocery store, but she is able to shop for herself. She uses a cane sometimes at home, but often forgets it. Reviewed History: Yes Social History Home: Single Level Current Living Status: Children Entry Into Home: Ramp, Stairs With Railing Steps Into Home: 6 ADL-Prior Level of Function SCALE: Activities may be completed with or without assistive devices. 7-Augewgrtua-mzudbfv completes the activity by him/herself with no assistance from a helper. 5-Set-up or Clean-up Assistance-helper sets up or cleans up; patient completes activity. Dorr assists only prior to or following the activity. 4-Supervision or Touching Assistance-helper provides verbal cues and/or touchi ng/steadying and/or contact guard assistance as patient completes activity. Assistance may be provided throughout the activity or intermittently. 3-Partial/Moderate Assistance-helper does LESS THAN HALF the effort. Dorr lifts, holds or supports trunk or limbs, but provides less than half the effort. 2-Substantial/Maximal Assistance-helper does MORE THAN HALF the effort. Dorr lifts or holds trunk or limbs and provides more than half the effort. 4-Dvrlwmmyx-elnrjp does ALL the effort. Patient does none of the effort to complete the activity. Or, the assistance of 2 or more helpers is required for the patient to complete the activity. If activity was not attempted, code reason: 7-Patient Refused. 9-Not Applicable-not attempted and the patient did not perform the activity before the current illness, exacerbation or injury. 10-Not Attempted due to Environmental Limitations-(lack of equipment, weather restraints, etc.). 88-Not Attempted due to Medical Conditions or Safety Concerns. Self Care: Independent Functional Cognition: Independent DME/Equipment: Tub/Shower OT Current Status Subjective Pt laying in bed upon arrival. She agrees to a therapy eval. Appearance Pt was left laying in bed with all needs within reach and nursing present. 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 Sit<>stand: independent. Pt is able to manage her IV pole throughout room and bathroom with independence. Pt performed toileting and toileting hygiene with independence. Pt noticed urine incontinence and was able to clean herself, and doff/don new clothes with independence. She reported no concerns with self-care tasks once return to home and per today's eval, she does not qualify for skilled OT service s due to independence with self-care tasks. She will be d/c from skilled OT at this time. Education OT Patient Education: Progress toward Goal/Update tx plan, Purpose of tx/functional activities, Reviewed precautions, Rehab process Teaching Recipient: Patient, Family Teaching Methods: Discussion Response to Teaching: Verbalize Understanding, Return Demonstration OT Optics Test Technician Goals Longterm Goals 1=Demonstrate adherence to instructed precautions during ADL tasks. 2=Patient will verbalize/demonstrate understanding of assistive devices/modifications for ADL. 3=Patient will improve strength/tolerance for activity to enable patient to perform ADL's. OT Education/Plan Problem List/Assessment Assessment: No Skilled OT Needs ID'd Discharge Recommendations Plan/Recommendations: Discontinue OT Therapy Discharge Recommendati: Homemaker Support, Home & Family Equpiment Recommendations-D/C: Bath Chair Treatment Plan/Plan of Care Treatment,Training & Education: Yes Patient would benefit from OT for education, treatment and training to promote independence in ADL's, mobility, safety and/or upper extremity function for ADL's. Plan of Care: ADL Retraining, Functional Mobility Treatment Duration: Jun 24, 2022 Frequency: 1 time per week Estimated Hrs Per Day: .25 hour per day Agreement: Yes Time/GCodes Start Time: 09:54 Stop Time: 10:10 Total Time Billed (hr/min): 16 Billed Treatment Time 1 visit Noemi Nails OT Jun 24, 2022 10:18
[2022-06-24] MEDS ORDERED: DICLOFENAC 1% GEL 100 GM (VOLTAREN) TUBE TP PRN (10:30)
[2022-06-24] MEDS: ENOXAPARIN 40 MG/0.4 ML (LOVENOX) SYR SC SCH (13:14)
--- NOTE | 2022-06-24 18:57 | History & Physical-Hospitalist ---
History of Present Illness HPI/Chief Complaint Leonora Leger is an 82 year old female with PMH HTN, T2DM, GERD, obesity, who presented with facial pain. She has also had nausea and vomiting. She has a rash on the left side of her face. She reports pain and itching. She has chronic vision issues due to macular degeneration. She denies any further visual impairment at this time. She has not had any further vomiting since arrival. She is feeling nauseous. She tried some food this morning but it made her more nauseous. She says she never had chicken pox as a kid. Her brother and sister had it. She did have measles. She did not get the shingles vaccine. Source: patient, family Exam Limitations: no limitations Date Seen 06/24/22 Time Seen by a Provider: 10:15 Attending Physician No,Local Physician PCP Admitting Physician: Tameka Grigsby MD Attending Physician: Tameka Grigsby MD Referring Physician Date of Admission Jun 23, 2022 at 11:47 Home Medications & Allergies Home Medications Reviewed patient Home Medication Reconciliation performed by pharmacy medication reconciliations health care sanitary technician and/or nursing. Patients Allergies have been reviewed. Allergies Allergies Coded Allergies Wpbzrrv-VMM-WkO Reductase Inhibitor (Unverified Allergy, Mild, MUSCLE PAIN, 03/09/18) adhesive (Unverified Allergy, Unknown, 03/09/18) lisinopril (Unverified Adverse Reaction, Mild, COUGH, 03/09/18) Past Rkjfzki-Eutrfp-Bupogj Hx Patient Social History Tobacco Use?: No Smoking Status: Never a Smoker Use of E-Cig and/or Vaping dev: No Substance use?: No Alcohol Use?: No Pt feels they are or have been: No Immunizations Up To Date Date of Influenza Vaccine: Jun 09, 2016 Tetanus Booster (TDap): Unknown Hepatitis A: No Hepatitis B: No Date of Pneumonia Vaccine: Jun 09, 2016 Seasonal Allergies Seasonal Allergies: Yes (MILD) Current Status Advance Directives: Yes Advance Directive Location: Family not sure- been 11 yrs Communicates: Verbally Primary Language: South Korean Preferred Spoken Language: South Korean Is interpretation needed?: No Sensory deficits: Vision impairment Additional sensory deficits: because of shingles- doesn't use glassess Implanted or Applied Medical D: Port-a-cath Past Medical History Surgeries: Adenoidectomy, Bladder Surgery, Hysterectomy, Tonsillectomy High Cholesterol, Hypertension 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 Sexually Transmitted Disease: No HIV/AIDS: No Gastroesophageal Reflux, Chronic Constipation, Diverticulosis Arthritis Diabetes, Insulin dep, Hypothyroidsim Loss of Vision: Bilateral Hearing Impairment: Denies Skin, Lymphoma What Type of Treatment Did You: Surgical Intervention Adverse Reaction/Blood Tranf: No (N/A) Family Medical History Cancer 09 SISTER Family history: Diabetes mellitus 03 MOTHER Stroke 03 MOTHER No Pertinent Family Hx Review of Systems Constitutional: malaise Respiratory: no symptoms reported Cardiovascular: no symptoms reported Gastrointestinal: nausea, vomiting Genitourinary: no symptoms reported Physical Exam Physical Exam Vital Signs Vital Signs - First Documented 06/23/22 07:15 Temp 36.9 Pulse 63 Resp 24 B/P (MAP) 170/80 (110) Pulse Ox 99 O2 Delivery Nasal Cannula O2 Flow Rate 2.00 Capillary Refill : Less Than 3 Seconds Height, Weight, BMI Height: 5'8.00" Weight: 213lbs. 0.0oz. 96.800951si; 34.95 BMI Method:Stated General Appearance: No Apparent Distress, Obese HEENT: PERRL/EOMI, Pharynx Normal Neck: Normal Inspection, Supple Respiratory: Lungs Clear, No Respiratory Distress Cardiovascular: Regular Rate, Rhythm, No Murmur Gastrointestinal: Normal Bowel Sounds, Soft Extremity: Normal Inspection, No Pedal Edema Neurologic/Psychiatric: Alert, Normal Mood/Affect Skin: Normal Color, Warm/Dry Results Results/Procedures Labs Laboratory Tests 06/23/22 07:25 06/24/22 05:51 Patient resulted labs reviewed. 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
[2022-06-24] MEDS ORDERED: hydrALAZINE (APESOLINE) 20 MG/ML VIAL IV PRN (19:00)
[2022-06-25 00:33] VITALS: BP 169/72
[2022-06-25] MEDS: ACYCLOVIR 800 MG/NS 250 ML IVPB IV SCH ×4 (00:42→09:36)
[2022-06-25] MEDS: GANCICLOVIR 0.15% OS SCH ×3 (00:42→13:41)
[2022-06-25 04:53] VITALS: BP 176/74
[2022-06-25] MEDS: NS IV 1000 ML 1,000 ML IV SCH ×2 (06:07→09:39)
[2022-06-25] MEDS: prednisoLONE 1% OPTH (PRED FORTE) 5 ML BTL OS SCH ×2 (06:07→12:29)
[2022-06-25] MEDS: LEVOTHYROXINE 75 MCG (LEVOTHROID) TABLET PO SCH (06:07)
[2022-06-25 06:08] LABS: CALCIUM 8.7 MG/DL (8.5-10.1); CREATININE SERUM 1.02 MG/DL (0.60-1.30); MAGNESIUM 1.6 MG/DL (1.6-2.4); POTASSIUM 3.7 MMOL/L (3.6-5.0)
[2022-06-25] MEDS: inSUlin ASPART (NovoLOG) 1 UNIT/0.01 ML (CHARGE PER UNIT) SC SCH ×3 (06:10→16:49)
[2022-06-25] MEDS: POTASSIUM CL 10MEQ/50ML IVPB 50 ML IV SCH (06:15)
[2022-06-25] MEDS: KCL 20 MEQ TAB (K-DUR) PO SCH (06:15)
[2022-06-25] MEDS: MAGNESIUM 1 GM/100 ML IVPB 100 ML IV SCH ×3 (06:27→07:56)
[2022-06-25 07:53] VITALS: BP 139/63
[2022-06-25] MEDS: PANTOPRAZOLE 20 MG TABLET (PROTONIX) PO SCH (07:56)
[2022-06-25] MEDS: OXYBUTYNIN (DITROPAN) 5 MG TAB PO SCH (07:58)
[2022-06-25] MEDS: LORATADINE (CLARITIN) 10 MG TAB PO SCH (07:58)
[2022-06-25] MEDS: ARTIFICAL TEARS 0.4 ML UNIT DOSE (REFRESH PLUS) OU SCH ×2 (08:00→13:41)
[2022-06-25] MEDS: DOCUSATE SODIUM 100 MG (COLACE) CAP PO SCH (08:41)
[2022-06-25] MEDS: SENNOSIDES 8.6 MG (SENOKOT) TAB PO SCH (08:42)
[2022-06-25] MEDS: polyethylene glycoL POWDER 17 GM (MIRALAX) PACK PO SCH (08:42)
[2022-06-25] MEDS ORDERED: GANC5GEL2 OS (10:47)
[2022-06-25] MEDS ORDERED: PRED5DRO17 OS (10:47)
[2022-06-25] MEDS ORDERED: VALA10007 PO (10:47)
[2022-06-25 12:00] VITALS: BP 139/64
[2022-06-25] MEDS: ENOXAPARIN 40 MG/0.4 ML (LOVENOX) SYR SC SCH (13:41)
[2022-06-25 16:16] VITALS: BP 168/78
--- NOTE | 2022-06-25 16:34 | Discharge Summary ---
Discharge Summary Hospital Course Problems/Dx: (1) Herpes zoster ophthalmicus Status: Acute (2) T2DM (type 2 diabetes mellitus) Status: Chronic Qualifiers: Qualified Codes: E11.9 - Type 2 diabetes mellitus without complications; Z79.4 - [employer] (current) use of insulin (3) HTN (hypertension) Status: Acute (4) GERD (gastroesophageal reflux disease) Status: Chronic (5) Obesity Status: Chronic Hospital Course Date of Admission: Jun 23, 2022 at 11:47 Admission Diagnosis : Herpes zoster ophthalmicus Family Physician/Provider: IleneLocal Physician Date of Discharge: 06/25/22 Discharge Diagnosis: Herpes zoster ophthalmicus Hospital Course: Leonora Leger is an 82 year old female who was admitted with herpes zoster ophthalmicus. Dr. Chaparro was consulted from the ER and assisted with her plan of care. She was treated with IV Acyclovir. She was also given Pred Forte eye drops and Zirgan gel at the request of Dr. Chaparro. Her pain improved. Her rash was evolving with pustules and blisters in various stages, some crusted and some remaining fluid filled. She was given a prescription of Valtrex, Pred Forte, and Zirgan, to continue treating her shingles infection at home. She should follow up with Dr. Chaparro as scheduled. [facility] and [facility] up with them in the next 1-2 weeks. She was discharged home in improved, stable condition. Labs and Pending Lab Test: Laboratory Tests 06/24/22 20:38: Glucometer 151H 06/25/22 04:56: Glucometer 154H 06/25/22 05:45: Sodium Level 140, Potassium Level 3.7, Chloride Level 107, Carbon Dioxide Level 23, Anion Gap 10, Blood Urea Nitrogen 15, Creatinine 1.02, Estimat Glomerular Filtration Rate 56, BUN/Creatinine Ratio 15, Glucose Level 174H, Calcium Level 8.7, Magnesium Level 1.6 06/25/22 11:47: Glucometer 217H 06/25/22 11:54: Glucometer 224H 06/25/22 16:06: Glucometer 219H Microbiology 06/23/22 Blood Culture - Preliminary, Resulted No growth Home Meds Active Valacyclovir (Valacyclovir HCl) 1,000 Mg Tablet 1,000 Mg PO Q8H 7 Days Prednisolone Acetate 1 % Drops.susp 0 Ml OS Q6H 10 Days 1 TO 2 DROPS TO LEFT EYE FOUR TIMES DAILY, DO NOT USE WITHIN 15 MINUTES OF ZIRGAN Zirgan (Ganciclovir) 0.15 % Gel..gram. 0 Gm OS Q6H 10 Days APPLY TO LEFT EYE FOUR TIMES DAILY, DO NOT USE WITHIN 15 MINUTES OF PRED FORTE Reported Urea 20 % Cream..g. 1 Applic TP DAILY PRN Glucose (Dextrose) 4 Gram Tab.chew 4 Gm PO DAILY PRN Voltaren Arthritis Pain (Diclofenac Sodium) 1 % Gel..gram. 1 Applic TP DAILY PRN Pioglitazone HCl 45 Mg Tablet 45 Mg PO DAILY Semglee (Yfgn) Pen (Insulin Glargine-Yfgn) 100 Unit/Ml (3 Ml) Insuln.pen 47 Unit SQ HS Praluent Pen (Alirocumab) 75 Mg/Ml Pen.injctr 75 Mg SQ [id number] ON SATURDAYS Refresh Tears (Carboxymethylcellulose Sodium) 0.5 % Drops 1 Drop OU QID Hydrochlorothiazide 25 Mg Tablet 25 Mg PO DAILY Omeprazole 20 Mg Tablet.dr 20 Mg PO DAILY Loratadine 10 Mg Tablet 10 Mg PO DAILY Levothyroxine Sodium 75 Mcg Tablet 75 Mcg PO DAILY Miralax (Polyethylene Glycol 3350) 17 Gm Powd.pack 17 Gm PO DAILY Carvedilol 12.5 Mg Tablet 6.25 Mg PO BID TAKES 1/2 OF (12.5MG) TAB Oxybutynin Chloride ER (Oxybutynin Chloride) 10 Mg Tab.er.24 10 Mg PO DAILY Preservision Areds 2 Softgel (Vit C/E/Zn/Coppr/Lutein/Zeaxan) 1 Each Capsule 2 Each PO DAILY Assessment/Pt Instructions See instructions Discharge Planning: >30 minutes discharge planning Discharge Instructions Discharge Diet: Low Sodium Diet, ADA Diet Activity as Tolerated: Yes Discharge Physical Examination Vital Signs Vital Signs Date Time Temp Pulse Resp B/P (MAP) Pulse Ox O2 Delivery O2 Flow Rate FiO2 06/25/22 16:16 36.8 70 18 168/78 (108) 99 Nasal Cannula 2.00 General Appearance: No Apparent Distress, Obese HEENT: Other (left forehead rash, left eye swelling and erythema, vision and extraocular movements intact) Respiratory: Lungs Clear, No Respiratory Distress Cardiovascular: Regular Rate, Rhythm, No Murmur Gastrointestinal: Normal Bowel Sounds, Soft Extremity: Normal Inspection, Pedal Edema Skin: Rash (left face V1 distrubution with blisters and pustules some crusted) Neurologic/Psychiatric: Alert, Normal Mood/Affect Allergies: Coded Allergies: Uuscvdx-YBA-TsP Reductase Inhibitor (Unverified Allergy, Mild, MUSCLE PAIN, 03/09/18) adhesive (Unverified Allergy, Unknown, 03/09/18) lisinopril (Unverified Adverse Reaction, Mild, COUGH, 03/09/18) Copy Copies To 1: LATRICE CHAPARRO OD Discharge Summary Date of Admission Jun 23, 2022 at 11:47 Date of Discharge Discharge Date: Jun 25, 2022 Discharge Time: 16:30 Admission Diagnosis Herpes zoster ophthalmicus Discharge Diagnosis Herpes zoster ophthalmicus T2DM HTN GERD Obesity (1) Herpes zoster ophthalmicus Status: Acute (2) T2DM (type 2 diabetes mellitus) Status: Chronic Qualifiers: Qualified Codes: E11.9 - Type 2 diabetes mellitus without complications; Z79.4 - [facility] (current) use of insulin (3) HTN (hypertension) Status: Acute (4) GERD (gastroesophageal reflux disease) Status: Chronic (5) Obesity Status: Chronic JACQUES GRIGSBY MD Jun 25, 2022 16:34
[2022-06-25 16:50] VITALS: BP 168/78
== END 2022-06-25 16:50 | disposition home or self-care (01) | DRG 125 ==
LOC: EDUNIT# 07:03 → ER 07:05 → OBSVTOIN 11:47 → 4TH 11:47
PROVIDERS: ADMIT Internal Medicine; ATTEND Internal Medicine
DX: B02.30 Zoster ocular disease, unspecified (principal); E11.9 Type 2 diabetes mellitus without complications; I10 Essential (primary) hypertension; K21.9 Gastro-esophageal reflux disease without esophagitis; E66.9 Obesity, unspecified; Z68.35 Body mass index [BMI] 35.0-35.9, adult; H54.3 Unqualified visual loss, both eyes; E78.00 Pure hypercholesterolemia, unspecified; Z20.822 Contact with and (suspected) exposure to COVID-19; Z85.72 Personal history of non-Hodgkin lymphomas; Z79.84 Long term (current) use of oral hypoglycemic drugs; Z79.4 Long term (current) use of insulin; Z91.09 Other allergy status, other than to drugs and biological substances
CPT/HCPCS: 36415; 71045; 80048; 80053; 82947; 83605; 83735; 85025; 85610; 85730; 87040; 87636; 94761

== ENCOUNTER 2022-06-27 10:30 | Inpatient (IN) | payer MEDICARE, OTHER ==
[~2022-06-27] VITALS: Ht 174 cm; Wt 103.7 kg
[~2022-06-27 10:30] MED LIST changes: +ALIR75PE5 SQ; +CARB15DR OU; +DEXT-157 PO; +DICL20GE TP; +GANC5GEL2 OS; +INSU100I74 SQ; +PIOG45TA65 PO; +PRED5DRO17 OS; +UREA85CR23 TP; +VALA10007 PO
--- NOTE | 2022-06-27 10:59 | ED EENT ---
History of Present Illness General Chief Complaint: Facial Problems Stated Complaint: FACE SWELLING Source: patient Exam Limitations: no limitations History of Present Illness Date Seen by Provider: Jun 27, 2022 Time Seen by Provider: 10:55 Initial Comments To ER by private vehicle with worsening facial swelling. She has herpes of the face admitted last week for this for a few days. She was discharged on Thursday. Comes in today with now right infraorbital edema and erythema. She is still on her valacyclovir 1 g 3 times a day, Zirgan ophthalmic and prednisolone ophthalmic. Has been Timing/Duration: this morning Severity: moderate Location: eye (L) Prearrival Treatment: prescription meds Associated Symptoms: facial pain/swelling Allergies and Home Medications Allergies Coded Allergies: Hswwcxj-MRI-CaF Reductase Inhibitor (Unverified Allergy, Mild, MUSCLE PAIN, 03/09/18) adhesive (Unverified Allergy, Unknown, 03/09/18) lisinopril (Unverified Adverse Reaction, Mild, COUGH, 03/09/18) Patient Home Medication List Home Medication List Reviewed: Yes Alirocumab (Praluent Pen) 75 Mg/Ml Pen.injctr, 75 MG SQ [id number], (Reported) Entered as Reported by: NURA DENNIS on 06/23/22 1430 Carboxymethylcellulose Sodium (Refresh Tears) 0.5 % Drops, 1 DROP OU QID, (Reported) Entered as Reported by: NURA DENNIS on 06/23/22 1428 Carvedilol (Carvedilol) 12.5 Mg Tablet, 6.25 MG PO BID, (Reported) Entered as Reported by: CHRISTIANO LOPEZ on 10/30/16 1252 Dextrose (Glucose) 4 Gram Tab.chew, 4 GM PO DAILY PRN for HYPOGLYCEMIA, (Reported) Entered as Reported by: NURA DENNIS on 06/23/22 1437 Diclofenac Sodium (Voltaren Arthritis Pain) 1 % Gel..gram., 1 APPLIC TP DAILY PRN for PAIN-MILD (1-4), (Reported) Entered as Reported by: NURA DENNIS on 06/23/22 1434 Ganciclovir (Zirgan) 0.15 % Gel..gram., 0 GM OS Q6H Prescribed by: JACQUES GRIGSBY on 06/25/22 1047 Hydrochlorothiazide (Hydrochlorothiazide) 25 Mg Tablet, 25 MG PO DAILY, (Reported) Entered as Reported by: CHRISTIANO LOPEZ on 03/09/18 1438 Insulin Glargine-Yfgn (Semglee (Yfgn) Pen) 100 Unit/Ml (3 Ml) Insuln.pen, 47 UNIT SQ HS, (Reported) Entered as Reported by: NURA DENNIS on 06/23/22 1432 Levothyroxine Sodium (Levothyroxine Sodium) 75 Mcg Tablet, 75 MCG PO DAILY, (Reported) Entered as Reported by: CHRISTIANO LOPEZ on 03/09/18 1438 Loratadine (Loratadine) 10 Mg Tablet, 10 MG PO DAILY, (Reported) Entered as Reported by: CHRISTIANO LOPEZ on 03/09/18 1438 Omeprazole (Omeprazole) 20 Mg Tablet.dr, 20 MG PO DAILY, (Reported) Entered as Reported by: CHRISTIANO LOPEZ on 03/09/18 1438 Oxybutynin Chloride (Oxybutynin Chloride ER) 10 Mg Tab.er.24, 10 MG PO DAILY, (Reported) Entered as Reported by: CHRISTIANO LOPEZ on 10/30/16 1252 Pioglitazone HCl (Pioglitazone HCl) 45 Mg Tablet, 45 MG PO DAILY, (Reported) Entered as Reported by: NURA DENNIS on 06/23/22 1433 Polyethylene Glycol 3350 (Miralax) 17 Gm Powd.pack, 17 GM PO DAILY, (Reported) Entered as Reported by: CHRISTIANO LOPEZ on 10/30/16 1257 Prednisolone Acetate (Prednisolone Acetate) 1 % Drops.susp, 0 ML OS Q6H Prescribed by: JACQUES GRIGSBY on 06/25/22 1047 Urea (Urea) 20 % Cream..g., 1 APPLIC TP DAILY PRN for DRY SKIN, (Reported) Entered as Reported by: NURA DENNIS on 06/23/22 1441 Valacyclovir HCl (Valacyclovir) 1,000 Mg Tablet, 1,000 MG PO Q8H Prescribed by: JACQUES GRIGSBY on 06/25/22 1047 Vit C/E/Zn/Coppr/Lutein/Zeaxan (Preservision Areds 2 Softgel) 1 Each Capsule, 2 EACH PO DAILY, (Reported) Entered as Reported by: CHRISTIANO LOPEZ on 10/30/16 1252 Review of Systems Review of Systems Constitutional: see HPI Eyes: See HPI Ears: No Symptoms Reported Nose: no symptoms reported Mouth: no symptoms reported Throat: no symptoms reported Respiratory: no symptoms reported Cardiovascular: no symptoms reported Musculoskeletal: no symptoms reported Skin: no symptoms reported Neurological: No Symptoms Reported Hematologic/Lymphatic: No Symptoms Reported Past Erdlpfm-Jsbtbv-Ybzuei Hx Patient Social History Tobacco Use?: No Use of E-Cig and/or Vaping dev: No Substance use?: No Alcohol Use?: No Immunizations Up To Date Tetanus Booster (TDap): Unknown Influenza Vaccine Up-to-Date: No; Not Current Seasonal Allergies Seasonal Allergies: Yes (MILD) Past Medical History Adenoidectomy, Bladder Surgery, Hysterectomy, Tonsillectomy High Cholesterol, Hypertension Stroke Reproductive Disorders: No 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 Sexually Transmitted Disease: No HIV/AIDS: No Gastroesophageal Reflux, Chronic Constipation, Diverticulosis Arthritis Diabetes, Insulin dep, Hypothyroidsim Loss of Vision: Bilateral Hearing Impairment: Denies Skin, Lymphoma What Type of Treatment Did You: Surgical Intervention Adverse Reaction/Blood Tranf: No (N/A) Family Medical History Cancer 09 SISTER Family history: Diabetes mellitus 03 MOTHER Stroke 03 MOTHER No Pertinent Family Hx Physical Exam Vital Signs Vital Signs - First Documented 06/27/22 10:34 Temp 37.7 Pulse 64 Resp 20 B/P (MAP) 163/80 (107) Pulse Ox 93 O2 Delivery Room Air Height, Weight, BMI Height: 5'8.00" Weight: 213lbs. 0.0oz. 96.622125gn; 34.95 BMI Method:Stated General Appearance: WD/WN, no apparent distress Eyes: left eye other (Left facial erythema and vesicles, some ruptured, a lot of purulent exudate from left eye. Right infraorbital eyelid sweling and erythema. There is no fluorescein dye uptake. There is bulbar and palpebral conjunctivitis. The right intraocular pressure is 15 mmHg the left is 12.); bilateral eye PERRL, bilateral eye EOMI Ears: bilateral ear auricle normal, bilateral ear canal normal, bilateral ear TM normal Mouth/Throat: normal mouth inspection, pharynx normal Neck: non-tender, full range of motion Cardiovascular: regular rate, rhythm, no murmur Respiratory: no respiratory distress, no accessory muscle use Gastrointestinal: non tender, soft Neurologic/Psychiatric: alert, normal mood/affect, oriented x 3 Skin: normal color, warm/dry Progress/Results/Core Measures Results/Orders Lab Results Laboratory Tests Test 06/27/22 10:53 Range/Units White Blood Count 4.1 L 4.3-11.0 10^3/uL Red Blood Count 4.19 3.80-5.11 10^6/uL Hemoglobin 11.7 11.5-16.0 g/dL Hematocrit 36 35-52 % Mean Corpuscular Volume 85 80-99 fL Mean Corpuscular Hemoglobin 28 25-34 pg Mean Corpuscular Hemoglobin Concent 33 32-36 g/dL Red Cell Distribution Width 14.4 10.0-14.5 % Platelet Count 89 L 130-400 10^3/uL Mean Platelet Volume 10.5 9.0-12.2 fL Immature Granulocyte % (Auto) 0 % Neutrophils (%) (Auto) 68 42-75 % Lymphocytes (%) (Auto) 22 12-44 % Monocytes (%) (Auto) 9 0-12 % Eosinophils (%) (Auto) 1 0-10 % Basophils (%) (Auto) 0 0-10 % Neutrophils # (Auto) 2.8 1.8-7.8 10^3/uL Lymphocytes # (Auto) 0.9 L 1.0-4.0 10^3/uL Monocytes # (Auto) 0.4 0.0-1.0 10^3/uL Eosinophils # (Auto) 0.0 0.0-0.3 10^3/uL Basophils # (Auto) 0.0 0.0-0.1 10^3/uL Immature Granulocyte # (Auto) 0.0 0.0-0.1 10^3/uL Percent Immature Platelet Fraction 3.4 0.0-7.6 % Sodium Level 132 L 135-145 MMOL/L Potassium Level 3.1 L 3.6-5.0 MMOL/L Chloride Level 96 L 98-107 MMOL/L Carbon Dioxide Level 26 21-32 MMOL/L Anion Gap 10 5-14 MMOL/L Blood Urea Nitrogen 16 7-18 MG/DL Creatinine 1.01 0.60-1.30 MG/DL Estimat Glomerular Filtration Rate 56 BUN/Creatinine Ratio 16 Glucose Level 230 H 70-105 MG/DL Calcium Level 8.5 8.5-10.1 MG/DL Corrected Calcium 9.0 8.5-10.1 MG/DL Total Bilirubin 0.8 0.1-1.0 MG/DL Aspartate Amino Transf (AST/SGOT) 27 5-34 U/L Alanine Aminotransferase (ALT/SGPT) 19 0-55 U/L Alkaline Phosphatase 50 40-136 U/L Total Protein 6.0 L 6.4-8.2 GM/DL Albumin 3.4 3.2-4.5 GM/DL My Orders Orders - ALFREDO FOREMAN APRN Body Fluid Culture (06/27/22 10:49) Cbc With Automated Diff (06/27/22 10:49) Comprehensive Metabolic Panel (06/27/22 10:49) Ed Iv/Invasive Line Start (06/27/22 10:49) Tetracaine 0.5% Ophth Chel Sdv (Tetracai (06/27/22 11:00) Fluorescein Strips (Uhxso-A-Jbjudv) (06/27/22 11:00) Ceftriaxone 1 Gm Pre-Mix (Rocephin 1 Gm (06/27/22 11:45) Vancomycin Injection (Vancomycin Injecti (06/27/22 11:45) Ed Admission (Communication) (06/27/22 11:37) Medications Given in ED Current Medications Medications Dose Ordered Sig/Williams Route Start Time Stop Time Status Last Admin Dose Admin Fluorescein Sodium 1 mg ONCE ONCE OU 06/27/22 11:00 06/27/22 11:01 DC 06/27/22 11:08 1 MG Tetracaine HCl 4 ml ONCE ONCE OU 06/27/22 11:00 06/27/22 11:01 DC 06/27/22 11:08 4 ML Vital Signs/I&O 06/27/22 10:34 Temp 37.7 Pulse 64 Resp 20 B/P (MAP) 163/80 (107) Pulse Ox 93 O2 Delivery Room Air Departure Communication (Admissions) 1140-spoke with Dr. Jasso, patient's own computer clerk. Like to see her admitted for IV acyclovir, he will be up to see the patient later this afternoon or evening. Spoke with Dr. Grigsby agrees to admit. I will do a dose of Rocephin and vancomycin here in the emergency room in case 1 of these open wounds is secondarily bacterial infected given the spread of redness and edema to the right side of the face. Wound culture pending. Impression Primary Impression: Herpes zoster ophthalmicus Disposition: ADMITTED INPATIENT Condition: Stable Admissions Decision to Admit Reason: Admit from ER (General) Decision to Admit/Date: Jun 27, 2022 Time/Decision to Admit Time: 11:42 Departure-Patient Inst. Referrals: NO,LOCAL PHYSICIAN (PCP/Family) Primary Care Physician ALFREDO FOREMAN APRN Jun 27, 2022 10:58
[2022-06-27] MEDS ORDERED: TETRACAINE 0.5% OPHTH SOLN 4 ML BTL (SINGLE DOSE ONLY) OU ONE (11:00)
[2022-06-27] MEDS ORDERED: FLUORESCEIN (FLUOR-I-STRIPS) 1 MG STRP OU ONE (11:00)
[2022-06-27 11:03] LABS: BASOPHILS % (AUTO) 0 % (0-10); EOSINOPHILS % (AUTO) 1 % (0-10); HEMOGLOBIN 11.7 g/dL (11.5-16.0); MEAN CORPUSCULAR HEMOGLOBIN 28 pg (25-34); MEAN PLATELET VOLUME 10.5 fL (9.0-12.2)
[2022-06-27 11:04] LABS: HEMATOCRIT 36 % (35-52); LYMPHOCYTES # (AUTO) 0.9 10^3/uL (1.0-4.0); LYMPHOCYTES % (AUTO) 22 % (12-44); MEAN CORPUSCULAR HGB CONC 33 g/dL (32-36); MEAN CORPUSCULAR VOLUME 85 fL (80-99); MONOCYTES # (AUTO) 0.4 10^3/uL (0.0-1.0); MONOCYTES % (AUTO) 9 % (0-12); NEUTROPHILS # (AUTO) 2.8 10^3/uL (1.8-7.8); NEUTROPHILS % (AUTO) 68 % (42-75); WHITE BLOOD COUNT 4.1 10^3/uL (4.3-11.0)
[2022-06-27 11:06] LABS: PLATELET COUNT 89 10^3/uL (130-400)
[2022-06-27 11:16] LABS: ALBUMIN 3.4 GM/DL (3.2-4.5); POTASSIUM 3.1 MMOL/L (3.6-5.0)
[2022-06-27 11:17] LABS: CALCIUM 8.5 MG/DL (8.5-10.1)
[2022-06-27 11:20] LABS: BILIRUBIN,TOTAL 0.8 MG/DL (0.1-1.0)
[2022-06-27 11:22] LABS: CREATININE SERUM 1.01 MG/DL (0.60-1.30)
[2022-06-27] MEDS ORDERED: VANCOMYCIN INJECTION 1,000 MG in NS (IVPB) 250 ML IV ONE (11:45)
[2022-06-27] MEDS ORDERED: cefTRIAXone 1 GM PRE-MIX 50 ML IV ONE (11:45)
[2022-06-27] MEDS ORDERED: diphenhydrAMINE 25 MG TAB (BENADRYL) PO PRN (13:30)
[2022-06-27] MEDS ORDERED: ACETAMINOPHEN 325 MG TABLET PO PRN (13:30)
[2022-06-27] MEDS ORDERED: MILK OF MAGNESIA 400 MG/5 ML 30 ML UDC PO PRN (13:30)
[2022-06-27] MEDS ORDERED: LACTULOSE SYRUP 10GM/15ML (ENULOSE) 30ML UDC PO PRN (13:30)
[2022-06-27] MEDS ORDERED: ONDANSETRON 4 MG (ZOFRAN) ORAL DISSOLVE TAB PO PRN (13:30)
[2022-06-27] MEDS ORDERED: ONDANSETRON 4 MG/2 ML (SDV) Z0FRAN IV PRN (13:30)
[2022-06-27] MEDS ORDERED: ANTACID SUSP 30 ML UDC (MYLANTA) PO PRN (13:30)
[2022-06-27] MEDS ORDERED: MELATONIN 3 MG TABLET PO PRN (13:30)
[2022-06-27] MEDS ORDERED: CALCIUM CARBONATE 500 MG (TUMS) TAB.CHEW PO PRN (13:30)
[2022-06-27] MEDS ORDERED: BISACODYL 10 MG SUPP (DULCOLAX) PR PRN (13:30)
[2022-06-27] MEDS ORDERED: diphenhydrAMINE 50 MG/ML INJ (BENADRYL) IVP PRN (13:30)
[2022-06-27] MEDS ORDERED: polyethylene glycoL POWDER 17 GM (MIRALAX) PACK PO PRN (13:30)
[2022-06-27] MEDS: NS IV 1000 ML 1,000 ML IV SCH (14:17)
[2022-06-27] MEDS: ENOXAPARIN 40 MG/0.4 ML (LOVENOX) SYR SC SCH (14:17)
[2022-06-27] MEDS ORDERED: ACYCLOVIR INJECTION 500 MG/10 ML INJ IV SCH (15:00)
[2022-06-27] MEDS: ACYCLOVIR INJECTION 650 MG in NS (IVPB) 250 ML IV SCH ×2 (15:29→23:14)
[2022-06-27 16:02] VITALS: BP 169/78
[2022-06-27] MEDS: inSUlin ASPART (NovoLOG) 1 UNIT/0.01 ML (CHARGE PER UNIT) SC SCH ×2 (16:49→21:00)
[2022-06-27] MEDS: GANCICLOVIR 0.15% OS SCH ×2 (16:50→23:04)
[2022-06-27] MEDS ORDERED: GANCICLOVIR 0.15% OS SCH (17:00)
[2022-06-27] MEDS ORDERED: hydrALAZINE (APESOLINE) 20 MG/ML VIAL IV PRN (17:45)
[2022-06-27 19:32] VITALS: BP 169/80
[2022-06-27] MEDS: SENNOSIDES 8.6 MG (SENOKOT) TAB PO SCH (23:04)
[2022-06-27] MEDS: DOCUSATE SODIUM 100 MG (COLACE) CAP PO SCH (23:04)
[2022-06-28 00:13] VITALS: BP 185/81
[2022-06-28] MEDS: NS IV 1000 ML 1,000 ML IV SCH ×3 (01:04→21:14)
[2022-06-28 04:00] VITALS: BP 167/74
[2022-06-28] MEDS: inSUlin ASPART (NovoLOG) 1 UNIT/0.01 ML (CHARGE PER UNIT) SC SCH ×4 (07:07→22:46)
[2022-06-28] MEDS: ACYCLOVIR INJECTION 650 MG in NS (IVPB) 250 ML IV SCH ×2 (07:08→14:32)
[2022-06-28 07:48] VITALS: BP 161/72
[2022-06-28] MEDS ORDERED: VANCOMYCIN INJECTION 0.1 MG in NS (IVPB) 250 ML IV SCH (09:00)
[2022-06-28] MEDS: SENNOSIDES 8.6 MG (SENOKOT) TAB PO SCH ×3 (09:40→21:15)
[2022-06-28] MEDS: GANCICLOVIR 0.15% OS SCH ×5 (09:40→22:45)
[2022-06-28] MEDS: DOCUSATE SODIUM 100 MG (COLACE) CAP PO SCH ×3 (09:40→21:15)
[2022-06-28] MEDS ORDERED: VANCOMYCIN 2000 MG/NS 500 ML IVPB IV NR ×2 (10:00)
[2022-06-28 11:27] VITALS: BP 157/72
[2022-06-28] MEDS: ENOXAPARIN 40 MG/0.4 ML (LOVENOX) SYR SC SCH (13:08)
[2022-06-28] MEDS: prednisoLONE 1% OPTH (PRED FORTE) 5 ML BTL OS SCH ×3 (13:08→22:46)
[2022-06-28 16:10] VITALS: BP 170/72
--- NOTE | 2022-06-28 18:10 | History & Physical-Hospitalist ---
History of Present Illness HPI/Chief Complaint Leonora Leger is an 82 year old female with PMH HTN, T2DM, GERD, obesity, who presented with facial swelling. She was recently discharged after being admitted with a shingles infection on the left side of her face. She was improving and was discharged home on oral Valtrex, Zirgan gel, and Pred Forte eye drops. She began developing redness and swelling around her right eye as well. She has pustular lesions on the left side of her forehead. She has had fevers. She denies chest pain, shortness of breath, and abdominal pain. Her supervisor money room, Dr. Jasso, came by to see her last night and reportedly agreed with all current treatment. Source: patient, family Exam Limitations: no limitations Date Seen 06/28/22 Time Seen by a Provider: 11:10 Attending Physician No,Local Physician PCP Admitting Physician: Tameka Grigsby MD Attending Physician: Tameka Grigsby MD Referring Physician Date of Admission Jun 28, 2022 at 12:46 Home Medications & Allergies Home Medications Reviewed patient Home Medication Reconciliation performed by pharmacy medication reconciliations quick technician and/or nursing. Patients Allergies have been reviewed. Allergies Allergies Coded Allergies Rdsedmu-UCK-PwJ Reductase Inhibitor (Unverified Allergy, Mild, MUSCLE PAIN, 06/17) adhesive (Unverified Allergy, Unknown, 03/09/18) lisinopril (Unverified Adverse Reaction, Mild, COUGH, 03/09/18) Past Yfbnncl-Jsbrcw-Ogtgtx Hx Patient Social History Tobacco Use?: No Smoking Status: Former Smoker Smokeless Tobacco Frequency: Never a User Use of E-Cig and/or Vaping dev: No Substance use?: No Alcohol Use?: No Pt feels they are or have been: No Immunizations Up To Date Date of Influenza Vaccine: Jun 09, 2016 Tetanus Booster (TDap): Unknown Hepatitis A: No Hepatitis B: No Date of Pneumonia Vaccine: Jun 09, 2016 Seasonal Allergies Seasonal Allergies: Yes (MILD) Current Status Advance Directives: Yes Advance Directive Location: Unknown Communicates: Verbally Primary Language: Syriac Preferred Spoken Language: Syriac Is interpretation needed?: No Implanted or Applied Medical D: Port-a-cath Past Medical History Surgeries: Adenoidectomy, Bladder Surgery, Hysterectomy, Tonsillectomy High Cholesterol, Hypertension 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 Sexually Transmitted Disease: No HIV/AIDS: No Gastroesophageal Reflux, Chronic Constipation, Diverticulosis Arthritis Diabetes, Insulin dep, Hypothyroidsim Loss of Vision: Bilateral Hearing Impairment: Denies Skin, Lymphoma What Type of Treatment Did You: Surgical Intervention Adverse Reaction/Blood Tranf: No (N/A) Family Medical History Cancer 09 SISTER Family history: Diabetes mellitus 03 MOTHER Stroke 03 MOTHER No Pertinent Family Hx Review of Systems Constitutional: fever EENTM: no symptoms reported Respiratory: no symptoms reported Cardiovascular: no symptoms reported Gastrointestinal: no symptoms reported Physical Exam Physical Exam Vital Signs Vital Signs - First Documented 06/27/22 10:34 Temp 37.7 Pulse 64 Resp 20 B/P (MAP) 163/80 (107) Pulse Ox 93 O2 Delivery Room Air Capillary Refill : Less Than 3 Seconds Height, Weight, BMI Height: 5'8.00" Weight: 213lbs. 0.0oz. 96.415783gb; 34.25 BMI Method:Stated General Appearance: No Apparent Distress, Obese HEENT: Pharynx Normal, Other (bilateral suborbital swelling, redness, left forehead with rash and pustular discharge) Neck: Normal Inspection, Supple Respiratory: Lungs Clear, No Respiratory Distress Cardiovascular: Regular Rate, Rhythm, No Murmur Gastrointestinal: Normal Bowel Sounds, Non Tender, Soft Extremity: Normal Inspection, No Pedal Edema Neurologic/Psychiatric: Alert, Normal Mood/Affect Skin: Normal Color, Warm/Dry Results Results/Procedures Labs Laboratory Tests 06/27/22 10:53 Patient resulted labs reviewed. Imaging: Reviewed Imaging Report Assessment/Plan Admission Diagnosis Facial cellulitis Admission Status: Observation Assessment and Plan Herpes zoster ophthalmicus Facial cellulitis Bacterial superinfection IV Acyclovir Zirgan gel Pred forte eye drops Cultures with presumed MSSA IV Vancomycin T2DM Levemir Sliding scale insulin HTN GERD Hypothyroidism Obesity Continue home meds DVT prophylaxis: Lovenox Diagnosis/Problems Diagnosis/Problems (1) Herpes zoster ophthalmicus Status: Acute (2) Superinfection Status: Acute (3) Facial cellulitis Status: Acute (4) T2DM (type 2 diabetes mellitus) Status: Chronic Qualifiers: Diabetes mellitus longterm insulin use: with termite technician use (5) HTN (hypertension) Status: Acute (6) Obesity Status: Chronic (7) GERD (gastroesophageal reflux disease) Status: Chronic TAMEKA GRIGSBY MD Jun 28, 2022 18:10
[2022-06-28 19:20] VITALS: BP 174/80
[2022-06-28] MEDS: VANCOMYCIN 1250 MG/NS 250 ML IVPB IV SCH ×2 (21:16)
[2022-06-29] VITALS (7 sets, daily range): BP systolic 130–167; BP diastolic 61–79
[2022-06-29] MEDS: ACYCLOVIR INJECTION 650 MG in NS (IVPB) 250 ML IV SCH ×3 (01:00→14:22)
[2022-06-29] MEDS: LEVOTHYROXINE 75 MCG (LEVOTHROID) TABLET PO SCH (06:31)
[2022-06-29] MEDS: GANCICLOVIR 0.15% OS SCH ×5 (06:34→21:44)
[2022-06-29] MEDS: inSUlin ASPART (NovoLOG) 1 UNIT/0.01 ML (CHARGE PER UNIT) SC SCH ×4 (06:37→21:43)
[2022-06-29] MEDS: DOCUSATE SODIUM 100 MG (COLACE) CAP PO SCH ×2 (09:14→21:42)
[2022-06-29] MEDS: OXYBUTYNIN (DITROPAN) 5 MG TAB PO SCH (09:14)
[2022-06-29] MEDS: SENNOSIDES 8.6 MG (SENOKOT) TAB PO SCH ×2 (09:14→21:42)
[2022-06-29] MEDS: PANTOPRAZOLE 20 MG TABLET (PROTONIX) PO SCH (09:14)
[2022-06-29] MEDS: NS IV 1000 ML 1,000 ML IV SCH ×3 (09:14→21:59)
[2022-06-29] MEDS: prednisoLONE 1% OPTH (PRED FORTE) 5 ML BTL OS SCH ×4 (09:15→21:44)
[2022-06-29 09:37] LABS: BASOPHILS % (AUTO) 0 % (0-10); MONOCYTES # (AUTO) 0.3 10^3/uL (0.0-1.0); PLATELET COUNT 86 10^3/uL (130-400)
[2022-06-29 09:39] LABS: EOSINOPHILS # (AUTO) 0.1 10^3/uL (0.0-0.3); EOSINOPHILS % (AUTO) 4 % (0-10); HEMATOCRIT 33 % (35-52); HEMOGLOBIN 10.9 g/dL (11.5-16.0); LYMPHOCYTES % (AUTO) 31 % (12-44); MEAN CORPUSCULAR HEMOGLOBIN 28 pg (25-34); MEAN CORPUSCULAR HGB CONC 33 g/dL (32-36); MEAN CORPUSCULAR VOLUME 85 fL (80-99); MEAN PLATELET VOLUME 10.7 fL (9.0-12.2); MONOCYTES % (AUTO) 8 % (0-12); NEUTROPHILS # (AUTO) 1.8 10^3/uL (1.8-7.8); NEUTROPHILS % (AUTO) 57 % (42-75); WHITE BLOOD COUNT 3.2 10^3/uL (4.3-11.0)
[2022-06-29 09:55] LABS: CALCIUM 7.7 MG/DL (8.5-10.1)
[2022-06-29] MEDS: VANCOMYCIN 1250 MG/NS 250 ML IVPB IV SCH ×4 (10:19→23:00)
[2022-06-29] MEDS ORDERED: KCL 20 MEQ TAB (K-DUR) PO ONE (13:15)
[2022-06-29] MEDS: ENOXAPARIN 40 MG/0.4 ML (LOVENOX) SYR SC SCH (13:23)
--- NOTE | 2022-06-29 17:02 | Progress Note - Hospitalist ---
Subjective HPI/CC On Admission Date Seen by Provider: Jun 29, 2022 Time Seen by Provider: 10:45 Leonora Leger is an 82 year old female with PMH HTN, T2DM, GERD, obesity, who presented with facial swelling. She was recently discharged after being admitted with a shingles infection on the left side of her face. She was improving and was discharged home on oral Valtrex, Zirgan gel, and Pred Forte eye drops. She began developing redness and swelling around her right eye as well. She has pustular lesions on the left side of her forehead. She has had fevers. She denies chest pain, shortness of breath, and abdominal pain. Her electrical timing device calibrator, Dr. Jasso, came by to see her last night and reportedly agreed with all current treatment. Subjective/Events-last exam She is feeling better. Her swelling and redness if improving. She is not having pain. Objective Exam Vital Signs Vital Signs Date Time Temp Pulse Resp B/P (MAP) Pulse Ox O2 Delivery O2 Flow Rate FiO2 06/29/22 16:22 36.2 95 18 167/79 (108) 97 Room Air Capillary Refill : Less Than 3 Seconds General Appearance: No Apparent Distress, Obese Neck: Normal Inspection, Supple Respiratory: Lungs Clear, No Respiratory Distress Cardiovascular: Regular Rate, Rhythm, No Murmur Gastrointestinal: Normal Bowel Sounds, Soft Extremity: Normal Inspection, No Pedal Edema Neurologic/Psychiatric: Alert, Normal Mood/Affect Skin: Rash (left forehead crusted, bilateral infraorbital edema ) Results/Procedures Lab Laboratory Tests 06/29/22 09:30 Patient resulted labs reviewed. Imaging: Reviewed Imaging Report Assessment/Plan Assessment and Plan Assess & Plan/Chief Complaint Herpes zoster ophthalmicus Facial cellulitis Bacterial superinfection IV Acyclovir Zirgan gel Pred forte eye drops Cultures with presumed MSSA IV Vancomycin T2DM Levemir Sliding scale insulin HTN GERD Hypothyroidism Obesity Continue home meds DVT prophylaxis: Lovenox Diagnosis/Problems Diagnosis/Problems (1) Herpes zoster ophthalmicus Status: Acute (2) Superinfection Status: Acute (3) Facial cellulitis Status: Acute (4) T2DM (type 2 diabetes mellitus) Status: Chronic Qualifiers: Diabetes mellitus terminologist insulin use: with retirement use (5) HTN (hypertension) Status: Acute (6) Obesity Status: Chronic (7) GERD (gastroesophageal reflux disease) Status: Chronic JACQUES GRIGSBY MD Jun 29, 2022 17:02
[2022-06-29] MEDS ORDERED: TROUGH ORDER-PHARMACY XX NR (21:00)
[2022-06-30 00:08] VITALS: BP 142/80
[2022-06-30] MEDS: ACYCLOVIR INJECTION 650 MG in NS (IVPB) 250 ML IV SCH ×2 (00:28→06:07)
[2022-06-30 04:05] VITALS: BP 152/71
[2022-06-30] MEDS: LEVOTHYROXINE 75 MCG (LEVOTHROID) TABLET PO SCH (06:07)
[2022-06-30] MEDS: inSUlin ASPART (NovoLOG) 1 UNIT/0.01 ML (CHARGE PER UNIT) SC SCH ×3 (06:21→12:17)
[2022-06-30] MEDS: GANCICLOVIR 0.15% OS SCH ×3 (06:22→12:18)
[2022-06-30] MEDS: prednisoLONE 1% OPTH (PRED FORTE) 5 ML BTL OS SCH ×2 (08:11→12:18)
[2022-06-30] MEDS: PANTOPRAZOLE 20 MG TABLET (PROTONIX) PO SCH (08:11)
[2022-06-30] MEDS: OXYBUTYNIN (DITROPAN) 5 MG TAB PO SCH (08:11)
[2022-06-30 08:12] VITALS: BP 139/65
[2022-06-30] MEDS: SENNOSIDES 8.6 MG (SENOKOT) TAB PO SCH (08:12)
[2022-06-30] MEDS: DOCUSATE SODIUM 100 MG (COLACE) CAP PO SCH (08:12)
[2022-06-30] MEDS ORDERED: VALA10007 PO (09:53)
[2022-06-30] MEDS ORDERED: PRED5DRO17 OP (09:58)
[2022-06-30] MEDS ORDERED: VANCOMYCIN 1 GM/NS 250 ML IVPB IV SCH ×2 (10:00)
[2022-06-30] MEDS ORDERED: GANC5GEL2 OS (10:02)
[2022-06-30] MEDS: NS IV 1000 ML 1,000 ML IV SCH (10:05)
--- NOTE | 2022-06-30 10:45 | Discharge Summary ---
Diagnosis/Chief Complaint Date of Admission Jun 28, 2022 at 12:46 Date of Discharge Admission Diagnosis Facial cellulitis Primary Care No,Local Physician Discharge Diagnosis (1) Herpes zoster ophthalmicus Status: Acute (2) Superinfection Status: Acute (3) Facial cellulitis Status: Acute (4) T2DM (type 2 diabetes mellitus) Status: Chronic (5) HTN (hypertension) Status: Acute (6) Obesity Status: Chronic (7) GERD (gastroesophageal reflux disease) Status: Chronic Discharge Summary Discharge Physical Exam Allergies: Coded Allergies: Kufgozl-YWX-XhO Reductase Inhibitor (Unverified Allergy, Mild, MUSCLE CHIDI N, 03/09/18) adhesive (Unverified Allergy, Unknown, 03/09/18) lisinopril (Unverified Adverse Reaction, Mild, COUGH, 03/09/18) Vitals & I&Os Vital Signs Date Time Temp Pulse Resp B/P (MAP) Pulse Ox O2 Delivery O2 Flow Rate FiO2 06/30/22 08:12 36.4 110 18 139/65 (89) Room Air 06/30/22 04:05 98 Hospital Course Labs (last 24 hrs) Laboratory Tests 06/29/22 10:55: Glucometer 109 06/29/22 16:25: Glucometer 147H 06/29/22 20:51: Glucometer 213H 06/29/22 21:45: Vancomycin Level Trough 18.1 06/30/22 06:09: Glucometer 163H Microbiology 06/27/22 Gram Stain - Final, Complete 06/27/22 Wound Culture - Final, Complete Staphylococcus aureus Gram Positive Titus Patient resulted labs reviewed. Pending Labs Laboratory Tests 06/30/22 06:09: Glucometer 163 Imaging: Reviewed Imaging Report Discharge Home Medications: Active Scripts Active Reported Zirgan (Ganciclovir) 0.15 % Gel..gram. 1 Applic OS QID FILLED 06-25-2022 #5, DO NOT USE WITHIN 15 MINUTES OF PREDNISOLONE EYE DROPS Prednisolone Acetate 1 % Drops.susp 1-2 Drop OP QID FILLED 06-25-2022 #06/24 DAY SUPPLY, ONLY USE FOR 10 DAYS Valacyclovir (Valacyclovir HCl) 1,000 Mg Tablet 1,000 Mg PO TID FILLED 06-25-2022 #20/03 DAY SUPPLY Urea 20 % Cream..g. 1 Applic TP DAILY PRN Glucose (Dextrose) 4 Gram Tab.chew 4 Gm PO DAILY PRN Voltaren Arthritis Pain (Diclofenac Sodium) 1 % Gel..gram. 1 Applic TP DAILY PRN Pioglitazone HCl 45 Mg Tablet 45 Mg PO DAILY Semglee (Yfgn) Pen (Insulin Glargine-Yfgn) 100 Unit/Ml (3 Ml) Insuln.pen 47 Unit SQ HS Praluent Pen (Alirocumab) 75 Mg/Ml Pen.injctr 75 Mg SQ [id number] ON SATURDAYS Refresh Tears (Carboxymethylcellulose Sodium) 0.5 % Drops 1 Drop OU QID Hydrochlorothiazide 25 Mg Tablet 25 Mg PO DAILY Omeprazole 20 Mg Tablet.dr 20 Mg PO DAILY Loratadine 10 Mg Tablet 10 Mg PO DAILY Levothyroxine Sodium 75 Mcg Tablet 75 Mcg PO DAILY Miralax (Polyethylene Glycol 3350) 17 Gm Powd.pack 17 Gm PO DAILY Carvedilol 12.5 Mg Tablet 6.25 Mg PO BID TAKES 1/2 OF (12.5MG) TAB Oxybutynin Chloride ER (Oxybutynin Chloride) 10 Mg Tab.er.24 10 Mg PO DAILY Preservision Areds 2 Softgel (Vit C/E/Zn/Coppr/Lutein/Zeaxan) 1 Each Capsule 2 Each PO DAILY Instructions to patient/family Please see electronic discharge instructions given to patient. Problem Qualifiers (1) T2DM (type 2 diabetes mellitus): Diabetes mellitus jail insulin use: with jail use FITZ MCCARTHY MD Jun 30, 2022 10:45
[2022-06-30] MEDS ORDERED: CEPH500T PO (10:59)
--- NOTE | 2022-06-30 11:01 | Discharge Inst-Simple/Standard ---
Discharge Inst-Standard Discharge Medications New, Converted or Re-Newed RX: Transmitted to Pharmacy Patient Instructions/Follow Up Plan of Care/Instructions/FU: Please continue to take your medications as written. Please follow up with your primary care doctor to follow up this hospital stay. Activity as Tolerated: Yes Discharge Diet: ADA Diet Return to The Hospital For: Chest pain, shortness of breath, fever, weakness, if you feel you are getting worse. FITZ MCCARTHY MD Jun 30, 2022 11:01
[2022-06-30 11:08] LABS: HEMOGLOBIN 10.6 g/dL (11.5-16.0)
[2022-06-30 11:10] LABS: MEAN PLATELET VOLUME 11.4 fL (9.0-12.2); WHITE BLOOD COUNT 2.3 10^3/uL (4.3-11.0)
[2022-06-30 11:22] LABS: POTASSIUM 3.3 MMOL/L (3.6-5.0)
[2022-06-30 11:23] LABS: CALCIUM 7.9 MG/DL (8.5-10.1)
[2022-06-30 11:27] LABS: CREATININE SERUM 0.93 MG/DL (0.60-1.30)
[2022-06-30 12:47] VITALS: BP 121/84
[2022-06-30 14:02] VITALS: BP 121/84
[2022-06-30] MEDS: ENOXAPARIN 40 MG/0.4 ML (LOVENOX) SYR SC SCH (14:37)
[2022-07-01] MEDS ORDERED: TROUGH ORDER-PHARMACY XX ONE (21:00)
== END 2022-06-30 15:00 | disposition home or self-care (01) | DRG 125 ==
LOC: EDUNIT# 10:30 → ER 10:33 → 4TH 11:39 → OBSVTOIN 06-28 12:46
PROVIDERS: ADMIT Internal Medicine; ATTEND Internal Medicine
DX: B02.39 Other herpes zoster eye disease (principal); L03.211 Cellulitis of face; A02.9 Salmonella infection, unspecified; E11.9 Type 2 diabetes mellitus without complications; I10 Essential (primary) hypertension; E66.9 Obesity, unspecified; K21.9 Gastro-esophageal reflux disease without esophagitis; E03.9 Hypothyroidism, unspecified; Z87.891 Personal history of nicotine dependence; E78.00 Pure hypercholesterolemia, unspecified; K57.90 Diverticulosis of intestine, part unspecified, without perforation or abscess without bleeding; Z79.4 Long term (current) use of insulin; Z79.899 Other long term (current) drug therapy; Z68.34 Body mass index [BMI] 34.0-34.9, adult
CPT/HCPCS: 36415; 80048; 80053; 80202; 82947; 85025; 85027; 87070; 87077; 87186; 87205; G0378

== ENCOUNTER 2022-12-02 10:41 | Day surgery (SDC) | payer MEDICARE, OTHER ==
[~2022-12-02] VITALS: Ht 176 cm; Wt 114.0 kg
[2022-12-02] VITALS (9 sets, daily range): BP systolic 140–176; BP diastolic 65–83
[~2022-12-02 10:41] MED LIST changes: +CARB15DR OD; -CARB15DR OU; +CEPH500T PO; -INSU100I29 SQ; +INSU100I30 SQ; +PRED5DRO17 OP
[2022-12-02] MEDS ORDERED: LIDOCAINE 1% INJ 20 ML VIAL ONE (10:58)
[2022-12-02] MEDS ORDERED: NS IV 1000 ML 1,000 ML ONE (10:58)
[2022-12-02] MEDS ORDERED: HEParin (CATH LAB) 2,000 ML IV ONE (10:58)
[2022-12-02] MEDS ORDERED: NS IV 1000 ML 1,000 ML IV SCH ×2 (11:00→16:00)
[2022-12-02 11:26] LABS: HEMATOCRIT 37 % (35-52); HEMOGLOBIN 11.8 g/dL (11.5-16.0); MEAN CORPUSCULAR HEMOGLOBIN 29 pg (25-34); MEAN CORPUSCULAR HGB CONC 32 g/dL (32-36); MEAN CORPUSCULAR VOLUME 90 fL (80-99); MEAN PLATELET VOLUME 9.2 fL (9.0-12.2); PLATELET COUNT 150 10^3/uL (130-400); WHITE BLOOD COUNT 4.7 10^3/uL (4.3-11.0)
[2022-12-02 11:38] LABS: PROTHROMBIN TIME PATIENT 13.8 SEC (12.2-14.7)
[2022-12-02 11:47] LABS: ALBUMIN 4.4 GM/DL (3.2-4.5); BILIRUBIN,TOTAL 0.4 MG/DL (0.1-1.0); CALCIUM 10.4 MG/DL (8.5-10.1); CREATININE SERUM 1.05 MG/DL (0.60-1.30); POTASSIUM 3.8 MMOL/L (3.6-5.0); TOTAL PROTEIN 7.2 GM/DL (6.4-8.2)
[2022-12-02] MEDS ORDERED: CLOB15CR2 TP (12:07)
[2022-12-02] MEDS ORDERED: CHOL-34 PO (12:07)
[2022-12-02] MEDS ORDERED: FURO20TA4 PO (12:07)
[2022-12-02] MEDS ORDERED: ASPI-1238 PO (12:07)
[2022-12-02] MEDS ORDERED: CARB10DR5 OS (12:07)
[2022-12-02] MEDS ORDERED: ACET-2267 PO (12:10)
[2022-12-02] MEDS ORDERED: fentaNYL INJ 100 MCG/2 ML AMP ONE (13:52)
[2022-12-02] MEDS ORDERED: VERAPAMIL 5 MG/2 ML (CALAN) VIAL IV ONE (13:52)
[2022-12-02] MEDS ORDERED: HEParin 1000 UNIT/ML (10ML VIAL) FOR BOLUS ONE (13:53)
[2022-12-02] MEDS ORDERED: NITRO DRIP 25000 MCG/D5W 250 ML IV ONE (13:53)
[2022-12-02] MEDS ORDERED: MIDAZOLAM 5 MG/5 ML (VERSED) VIAL ONE (13:53)
--- NOTE | 2022-12-02 15:18 | Cardiac Procedure Note-CS/ASA ---
Pre-Procedure Note Pre-Op Procedure Note Date of Available H&P: Nov 27, 2022 Date H&P Reviewed: Dec 02, 2022 Time H&P Reviewed: 14:00 History & Physical: H&P Reviewed, No changes noted Moderate Sedation PreProcedure ASA Score 3 Airway Lungs Heart ASA score ASA 1: a normal healthy patient ASA 2: a patient with a mild systemic disease (mid diabetes, controlled hypertension, obesity ASA 3: a patient with a severe systemic disease that limits activity (angina, COPD, prior Myocardial infarction) ASA 4: a patient with an incapacitating disease that is a constant threat to life (CHF, renal failure) ASA 5: a moribund patient not expected to survive 24 hrs. (ruptured aneurysm) ASA 6: a declared brain- patient whose organs are being harvested. For emergent operations, add the letter E after the classification Mallampati Classification Grade 2 Sedation Plan Analgesia, Amnesia, Plan communicated to team members The patient is an appropriate candidate to undergo the planned procedure, sedation, and anesthesia. The patient immediately re-assessed prior to indication. MAXIM WRIGHT MD FACP [facility] Dec 02, 2022 15:18
--- NOTE | 2022-12-02 15:28 | Cardiac Cath Report ---
CARDIAC CATHETERIZATION DATE OF PROCEDURE: 12-02-22 INDICATION: New onset of exertional angina HISTORY: The patient is a 82 year old female with onset of exertional angina a few months. Has risk factors of hypertension, hyperlipidemia, and DM II. Has h/o non-Hodgkin's treated only with chemo (no radiation) and now stated to be in remission (per patient). Last chemo was a few years ago PROCEDURES PERFORMED: 1. Cor angio 2. LHC PROCEDURE DESCRIPTION: After informed consent and in the fasting state, left heart catheterization was performed through the R radial artery utilizing a 6 Latvian system by percutaneous approach. TIG cath for L cors, JR4 for R cor and LHC and left ventricular angio. All catheters were exchanged over a guidewire. HEMODYNAMICS: LVEDP 20 mmHg, no significant gradient on pullback CORONARY ANGIOGRAPHY: Coronary calcification present LEFT VENTRICULAR ANGIO: LVEF approx 60% IMPRESSION: 1) CAD Left main coronary artery: Ok; Left anterior descending coronary artery: Long, up to 90% in ostial and prox LAD; Left circumflex coronary artery: Long, up to 80 in prox portion of a large OM, and 80% distal left circumflex; Right coronary artery: Dominant with up to 80 distal (but prox to PDA and PL) 2) LVEDP 20 mmHg 3) LVEF 60% PLAN CABG appears to be the best treatment option. I have called Dr Benjamin of CV Surg at [facility] and referred her to him. MAXIM WRIGHT MD FACP [facility] Dec 02, 2022 15:28
[2022-12-02] MEDS ORDERED: PATIENT MAY USE OWN MEDS, ALL PO SCH (16:00)
[2022-12-02] MEDS ORDERED: ASPI-999 PO (16:02)
[2022-12-02] MEDS ORDERED: POTA-177 PO (16:05)
[2022-12-02] MEDS ORDERED: CARV12.53 PO (16:05)
[2022-12-02] MEDS ORDERED: NITR0.4T42 SL (16:05)
--- NOTE | 2022-12-02 16:07 | Discharge Inst-Post CATH ---
Discharge Inst-CATH/EP Post Cardiac Cath/EP D/C Inst Follow Up/Plan F/u with Dr Sharma in 2 weeks ACTIVITY * Go Home directly and rest. * Limit activity of the leg (or wrist if it was used) for 7 days including aerobics, swimming, jogging, bicycling, etc. * Restrict stair-climbing for 7 days if possible, if not, climb up with your no n-cath leg, then bring together on the same step. * Avoid lifting, pushing, pulling or excessive movement of the affected ext remity for 7 days. * Customary sexual activity may be resumed after 2 days-use caution not to use a position that strains or causes pain to the affected extremity. * No driving for 24 hours. * NO SMOKING. * Avoid straining for bowel movements for 7 days. * Gentle walking on level ground is allowed. * Returning to work will depend on the type of procedure and the results. Your doctor will discuss this with you. CALL YOUR DOCTOR FOR ANY OF THE FOLLOWING: *If bleeding from the puncture site occurs- Apply gentle pressure to site with clean cloth and call your doctor or EMS. * If a knot or lump forms under the skin, increases in size, or causes pain. * If bruising appears to be worsening or moving further down your leg instead of disappearing. * Temperature above 101 F. CARE OF YOUR GROIN INCISION; * Bruising or purple discoloration of the skin near the puncture site is common. * You may shower only, no bathtub bathing for 5 days. Be careful to avoid slipping as your leg may feel stiff. * If a closure device was used on your femoral artery, please see the attached guide regarding care of the device and your leg. * Leave dressing on FOR 24 hours. CARE OF YOUR WRIST INCISION; * Bruising or purple discoloration of the skin near the puncture site is common. * You may shower. * DO NOT submerge wrist. * Leave dressing on FOR 24 hours. MAXIM SHARMA MD [facility] Dec 02, 2022 16:07
--- NOTE | 2022-12-02 16:07 | Discharge Inst-Cardiology ---
Discharge Inst-Cardiac Discharge Medications New Medications: Aspirin (Aspirin) 81 Mg Tab.chew 81 MG PO DAILY, #90 TAB 3 Refills Carvedilol (Carvedilol) 12.5 Mg Tablet 12.5 MG PO BID, #60 TAB 3 Refills Nitroglycerin (Nitroglycerin) 0.4 Mg Tab.subl 0.4 MG SL PRN, #25 TAB 3 Refills Potassium Chloride (Potassium Chloride) 10 Meq Tab.er.prt 10 MEQ PO DAILY, #30 TAB 5 Refills Continued Medications: Acetaminophen (Tylenol Extra Strength) 500 Mg Tablet 1000 MG PO Q8H PRN for PAIN-MILD (1-4), TAB TAKES 2 (500MG) TABS Alirocumab (Praluent Pen) 75 Mg/Ml Pen.injctr 75 MG SQ [id number], EA ON SATURDAYS Carboxymethylcellulos/Glycerin (Refresh Relieva 0.5-0.9% Drop) 0.5 %-0.9 % Drops 1 DROP OS QID PRN for DRY EYES, DROPS Carboxymethylcellulose Sodium (Refresh Tears) 0.5 % Drops 1 DROP OD QID PRN for DRY EYES, DROPS Cholecalciferol (Vitamin D3) (Vitamin D3) 25 Mcg (1000 Unit) Tablet 25 MCG PO DAILY, TAB Clobetasol Propionate (Clobetasol Propionate) 0.05 % Cream..g. 1 APPLIC TP BID, EA Dextrose (Glucose) 4 Gram Tab.chew 4 GM PO DAILY PRN for HYPOGLYCEMIA, TAB Furosemide (Furosemide) 20 Mg Tablet 20 MG PO DAILY, TAB Hydrochlorothiazide (Hydrochlorothiazide) 25 Mg Tablet 25 MG PO DAILY, TAB Insulin Glargine-Yfgn (Semglee (Yfgn) Pen) 100 Unit/Ml (3 Ml) Insuln.pen 28 UNIT SQ BID, EA Levothyroxine Sodium (Levothyroxine Sodium) 75 Mcg Tablet 75 MCG PO DAILY, TAB Loratadine (Loratadine) 10 Mg Tablet 10 MG PO DAILY, TAB Omeprazole (Omeprazole) 20 Mg Tablet.dr 20 MG PO DAILY, TAB Oxybutynin Chloride (Oxybutynin Chloride ER) 10 Mg Tab.er.24 10 MG PO DAILY, TAB Pioglitazone HCl (Pioglitazone HCl) 45 Mg Tablet 45 MG PO DAILY, TAB Vit C/E/Zn/Coppr/Lutein/Zeaxan (Preservision Areds 2 Softgel) 1 Each Capsule 2 EACH PO DAILY, CAP Discontinued Medications: Aspirin (Aspirin EC) 81 Mg Tablet.dr 81 MG PO DAILY, TAB Carvedilol (Carvedilol) 12.5 Mg Tablet 6.25 MG PO BID, TAB TAKES 1/2 OF (12.5MG) TAB MAXIM WRIGHT MD [facility]S Dec 02, 2022 16:07
[2022-12-02] MEDS ORDERED: ASPIRIN 81 MG CHEW (CHILDREN'S ASA) PO ONE (16:15)
== END 2022-12-02 18:00 | disposition home or self-care (01) ==
LOC: CATH 10:41 → SDC 15:45 → CATH 18:00
PROVIDERS: ATTEND Internal Medicine Cardiovascular Disease
DX: I25.118 Atherosclerotic heart disease of native coronary artery with other forms of angina pectoris (principal); I10 Essential (primary) hypertension; E11.9 Type 2 diabetes mellitus without complications; E78.5 Hyperlipidemia, unspecified; E66.9 Obesity, unspecified; Z68.36 Body mass index [BMI] 36.0-36.9, adult; Z87.891 Personal history of nicotine dependence; Z28.310 Unvaccinated for COVID-19; Z85.72 Personal history of non-Hodgkin lymphomas; Z79.4 Long term (current) use of insulin
CPT/HCPCS: 80053; 80061; 85027; 85610; 85730; 87081; 93458; C1894; 36415

== ENCOUNTER 2022-12-04 12:57 | Outpatient (RCR) | payer MEDICARE, OTHER ==
[~2022-12-04 12:57] MED LIST changes: +ACET-2267 PO; +ASPI-1238 PO; +ASPI-999 PO; +CARB10DR5 OS; +CHOL-34 PO; +CLOB15CR2 TP; +FURO20TA4 PO; +NITR0.4T42 SL; +POTA-177 PO
[2022-12-04 13:33] LABS: BASOPHILS % (AUTO) 0 % (0-10); EOSINOPHILS # (AUTO) 0.2 10^3/uL (0.0-0.3); EOSINOPHILS % (AUTO) 7 % (0-10); HEMATOCRIT 34 % (35-52); HEMOGLOBIN 10.8 g/dL (11.5-16.0); LYMPHOCYTES # (AUTO) 0.9 10^3/uL (1.0-4.0); LYMPHOCYTES % (AUTO) 25 % (12-44); MEAN CORPUSCULAR HEMOGLOBIN 29 pg (25-34); MEAN CORPUSCULAR HGB CONC 32 g/dL (32-36); MEAN CORPUSCULAR VOLUME 91 fL (80-99); MEAN PLATELET VOLUME 9.6 fL (9.0-12.2); MONOCYTES # (AUTO) 0.3 10^3/uL (0.0-1.0); MONOCYTES % (AUTO) 8 % (0-12); NEUTROPHILS # (AUTO) 2.1 10^3/uL (1.8-7.8); NEUTROPHILS % (AUTO) 60 % (42-75); PLATELET COUNT 147 10^3/uL (130-400); WHITE BLOOD COUNT 3.5 10^3/uL (4.3-11.0)
[2022-12-04 13:51] LABS: ALBUMIN 3.9 GM/DL (3.2-4.5); POTASSIUM 4.7 MMOL/L (3.6-5.0)
[2022-12-04 13:53] LABS: CALCIUM 9.4 MG/DL (8.5-10.1)
[2022-12-04 13:54] LABS: TOTAL PROTEIN 6.4 GM/DL (6.4-8.2)
[2022-12-04 13:55] LABS: BILIRUBIN,TOTAL 0.4 MG/DL (0.1-1.0)
[2022-12-04 13:57] LABS: CREATININE SERUM 1.31 MG/DL (0.60-1.30)
[2022-12-10] MEDS ORDERED: NITR0.4T39 SL (10:41)
[2022-12-10] MEDS ORDERED: DICL100G13 TOP (10:41)
[2022-12-10] MEDS ORDERED: POLY17PO6 PO (10:41)
[2022-12-10] MEDS ORDERED: POTA10CA44 PO (10:41)
[2022-12-10] MEDS ORDERED: ASPI-1238 PO (10:41)
[2022-12-10] MEDS ORDERED: CARV12.53 PO (10:41)
[2022-12-10] MEDS ORDERED: UREA85CR23 TOP (10:45)
[2022-12-17] MEDS ORDERED: PANT40TA52 PO (12:38)
== END 2022-12-28 | disposition home or self-care (01) ==
LOC: ONC 12:57
PROVIDERS: ATTEND Internal Medicine Hematology & Oncology
DX: C85.10 Unspecified B-cell lymphoma, unspecified site (principal); I10 Essential (primary) hypertension; E78.5 Hyperlipidemia, unspecified; R73.9 Hyperglycemia, unspecified; E66.9 Obesity, unspecified; Z79.899 Other long term (current) drug therapy
CPT/HCPCS: 36415; 80053; 82728; 83540; 83550; 85025

== ENCOUNTER 2022-12-10 03:33 | Inpatient (IN) | payer MEDICARE, OTHER ==
[2022-12-10] VITALS (9 sets, daily range): BP systolic 118–144; BP diastolic 60–79
[~2022-12-10] VITALS: Ht 172 cm; Wt 114.6 kg
[2022-12-10 04:12] LABS: BASOPHILS % (AUTO) 0 % (0-10); EOSINOPHILS # (AUTO) 0.4 10^3/uL (0.0-0.3); EOSINOPHILS % (AUTO) 7 % (0-10); HEMATOCRIT 28 % (35-52); HEMOGLOBIN 8.9 g/dL (11.5-16.0); LYMPHOCYTES % (AUTO) 19 % (12-44); MEAN CORPUSCULAR HEMOGLOBIN 29 pg (25-34); MEAN CORPUSCULAR HGB CONC 31 g/dL (32-36); MEAN CORPUSCULAR VOLUME 92 fL (80-99); MEAN PLATELET VOLUME 9.6 fL (9.0-12.2); MONOCYTES # (AUTO) 0.4 10^3/uL (0.0-1.0); MONOCYTES % (AUTO) 8 % (0-12); NEUTROPHILS # (AUTO) 3.4 10^3/uL (1.8-7.8); NEUTROPHILS % (AUTO) 65 % (42-75); PLATELET COUNT 151 10^3/uL (130-400); WHITE BLOOD COUNT 5.2 10^3/uL (4.3-11.0)
[2022-12-10 04:20] LABS: ALBUMIN 3.4 GM/DL (3.2-4.5)
[2022-12-10 04:22] LABS: CALCIUM 9.1 MG/DL (8.5-10.1)
[2022-12-10 04:23] LABS: TOTAL PROTEIN 5.8 GM/DL (6.4-8.2)
[2022-12-10 04:24] LABS: INR 1.1 (0.8-1.4); PROTHROMBIN TIME PATIENT 14.7 SEC (12.2-14.7)
[2022-12-10 04:25] LABS: BILIRUBIN,TOTAL 0.4 MG/DL (0.1-1.0)
[2022-12-10 04:27] LABS: CREATININE SERUM 1.16 MG/DL (0.60-1.30)
--- NOTE | 2022-12-10 04:34 | ED General ---
General Chief Complaint: Rect Problems Stated Complaint: BLOOD IN STOOL Nursing Triage Note: patient states since last night has had bright red bleeding from rectum. patient states started with a large bloody formed stool, and now no stool just blood. Source of Information: Patient Exam Limitations: No Limitations History of Present Illness Date Seen by Provider: Dec 10, 2022 Time Seen by Provider: 03:50 Initial Comments This 82-year-old woman presents to the emergency room with complaints of bright red blood per rectum that started around 2200. It started as a small amount of reddish bowel movement and has escalated into grossly bloody stool. She denies any pain or fever. She is not taking any blood thinning medications. Review of her chart notes a history of diverticulosis on a prior colonoscopy. She denies ever having problems with significant rectal bleeding in the past. She has history of lymphoma which is in remission and she [facility] week. Vital signs are stable at this time. Allergies and Home Medications Allergies Coded Allergies: Mwmbhft-GOA-GyH Reductase Inhibitor (Unverified Allergy, Mild, MUSCLE PAIN, 03/09/18) adhesive (Unverified Allergy, Unknown, 03/09/18) lisinopril (Unverified Adverse Reaction, Mild, COUGH, 03/09/18) Patient Home Medication List Home Medication List Reviewed: Yes Acetaminophen (Tylenol Extra Strength) 500 Mg Tablet, 1,000 MG PO Q8H PRN for PAIN-MILD (1-4), (Reported) Entered as Reported by: NURA DENNIS on 12/02/22 1210 Alirocumab (Praluent Pen) 75 Mg/Ml Pen.injctr, 75 MG SQ [id number], (Reported) Entered as Reported by: NURA DENNIS on 06/23/22 1430 Aspirin (Aspirin) 81 Mg Tab.chew, 81 MG PO DAILY Prescribed by: MAXIM SHARMA on 12/02/22 1602 Carboxymethylcellulos/Glycerin (Refresh Relieva 0.5-0.9% Drop) 0.5 %-0.9 % Drops, 1 DROP OS QID PRN for DRY EYES, (Reported) Entered as Reported by: NURA DENNIS on 12/02/22 1207 Carboxymethylcellulose Sodium (Refresh Tears) 0.5 % Drops, 1 DROP OD QID PRN for DRY EYES, (Reported) Entered as Reported by: NURA DENNIS on 06/23/22 1428 Carvedilol (Carvedilol) 12.5 Mg Tablet, 12.5 MG PO BID Prescribed by: MAXIM SHARMA on 12/02/22 1605 Cholecalciferol (Vitamin D3) (Vitamin D3) 25 Mcg (1000 Unit) Tablet, 25 MCG PO DAILY, (Reported) Entered as Reported by: NURA DENNIS on 12/02/22 1207 Clobetasol Propionate (Clobetasol Propionate) 0.05 % Cream..g., 1 APPLIC TP BID, (Reported) Entered as Reported by: NURA DENNIS on 12/02/22 1207 Dextrose (Glucose) 4 Gram Tab.chew, 4 GM PO DAILY PRN for HYPOGLYCEMIA, (Reported) Entered as Reported by: NURA DENNIS on 06/23/22 143 Furosemide (Furosemide) 20 Mg Tablet, 20 MG PO DAILY, (Reported) Entered as Reported by: NURA DENNIS on 12/02/22 1207 Hydrochlorothiazide (Hydrochlorothiazide) 25 Mg Tablet, 25 MG PO DAILY, (Reported) Entered as Reported by: CHRISTIANO LOPEZ on 03/09/18 1438 Insulin Glargine-Yfgn (Semglee (Yfgn) Pen) 100 Unit/Ml (3 Ml) Insuln.pen, 28 UNIT SQ BID, (Reported) Entered as Reported by: NURA DENNIS on 06/23/22 1432 Levothyroxine Sodium (Levothyroxine Sodium) 75 Mcg Tablet, 75 MCG PO DAILY, (Reported) Entered as Reported by: CHRISTIANO LOPEZ on 03/09/18 1438 Loratadine (Loratadine) 10 Mg Tablet, 10 MG PO DAILY, (Reported) Entered as Reported by: CHRISTIANO LOPEZ on 03/09/18 1438 Nitroglycerin (Nitroglycerin) 0.4 Mg Tab.subl, 0.4 MG SL PRN Prescribed by: MAXIM SHARMA on 12/02/22 1605 Omeprazole (Omeprazole) 20 Mg Tablet.dr, 20 MG PO DAILY, (Reported) Entered as Reported by: CHRISTIANO LOPEZ on 03/09/18 1438 Oxybutynin Chloride (Oxybutynin Chloride ER) 10 Mg Tab.er.24, 10 MG PO DAILY, (Reported) Entered as Reported by: CHRISTIANO LOPEZ on 10/30/16 1252 Pioglitazone HCl (Pioglitazone HCl) 45 Mg Tablet, 45 MG PO DAILY, (Reported) Entered as Reported by: NURA DENNIS on 06/23/22 1433 Potassium Chloride (Potassium Chloride) 10 Meq Tab.er.prt, 10 MEQ PO DAILY Prescribed by: MAXIM SHARMA on 12/02/22 1605 Vit C/E/Zn/Coppr/Lutein/Zeaxan (Preservision Areds 2 Softgel) 1 Each Capsule, 2 EACH PO DAILY, (Reported) Entered as Reported by: CHRISTIANO LOPEZ on 10/30/16 1252 Review of Systems Review of Systems Constitutional: no symptoms reported EENTM: no symptoms reported Respiratory: no symptoms reported Cardiovascular: no symptoms reported Gastrointestinal: see HPI Genitourinary: no symptoms reported : No Musculoskeletal: no symptoms reported Skin: no symptoms reported Psychiatric/Neurological: No Symptoms Reported Hematologic/Lymphatic: No Symptoms Reported Past Upvtuim-Ncexxj-Nkpypn Hx Patient Social History Tobacco Use?: No Use of E-Cig and/or Vaping dev: No Substance use?: No Alcohol Use?: No Immunizations Up To Date Tetanus Booster (TDap): Unknown Seasonal Allergies Seasonal Allergies: Yes (MILD) Past Medical History Surgeries: Yes Abdominal (Colonoscopy), Adenoidectomy, Bladder Surgery, Cardiac (Heart cath without intervention), Hysterectomy, Tonsillectomy Respiratory: No Cardiac: Yes Coronary Artery Disease, High Cholesterol, Hypertension Stroke Reproductive Disorders: No [employer] History: Hysterectomy Sexually Transmitted Disease: No HIV/AIDS: No Gastrointestinal: Yes Gastroesophageal Reflux, Chronic Constipation, Diverticulosis Musculoskeletal: Yes Arthritis Endocrine: Yes Diabetes, Insulin dep, Hypothyroidsim Loss of Vision: Bilateral Hearing Impairment: Denies Cancer: Yes Skin, Lymphoma Did You Recieve Any Treatments: Yes What Type of Treatment Did You: Surgical Intervention Integumentary: Yes (Chronic shingles of the left face and scalp) Adverse Reaction/Blood Tranf: No (N/A) Family Medical History Cancer 09 SISTER Family history: Diabetes mellitus 03 MOTHER Stroke 03 MOTHER No Pertinent Family Hx Physical Exam Vital Signs Vital Signs - First Documented 12/10/22 03:38 Temp 36.0 Pulse 94 Resp 20 B/P (MAP) 163/88 (113) Pulse Ox 98 O2 Delivery Room Air Capillary Refill : Less Than 3 Seconds Height, Weight, BMI Height: 5'8.00" Weight: 213lbs. 0.0oz. 96.450554fo; 38.00 BMI Method:Stated General Appearance: No Apparent Distress, WD/WN HEENT: PERRL/EOMI, Normal ENT Inspection Neck: Normal Inspection Respiratory: Lungs Clear, Normal Breath Sounds, No Accessory Muscle Use Cardiovascular: Regular Rate, Rhythm, No Murmur, Other (Lower extremity edema) Gastrointestinal: Non Tender, Soft; No Distended Extremity: Swelling Neurologic/Psychiatric: Alert, Oriented x3, No Motor/Sensory Deficits, Normal Mood/Affect Skin: Normal Color, Warm/Dry, Other (Stage II pressure ulcers on the buttock bilaterally) Progress/Results/Core Measures Suspected Sepsis SIRS Temperature: Pulse: 94 Respiratory Rate: 20 Laboratory Tests 12/10/22 04:00: White Blood Count 5.2 Blood Pressure 163 /88 Mean: 113 Laboratory Tests 12/10/22 04:00: Creatinine 1.16, INR Comment 1.1, Platelet Count 151, Total Bilirubin 0.4 Results/Orders Lab Results Laboratory Tests Test 12/10/22 04:00 Range/Units White Blood Count 5.2 4.3-11.0 10^3/uL Red Blood Count 3.08 L 3.80-5.11 10^6/uL Hemoglobin 8.9 L 11.5-16.0 g/dL Hematocrit 28 L 35-52 % Mean Corpuscular Volume 92 80-99 fL Mean Corpuscular Hemoglobin 29 25-34 pg Mean Corpuscular Hemoglobin Concent 31 L 32-36 g/dL Red Cell Distribution Width 14.6 H 10.0-14.5 % Platelet Count 151 130-400 10^3/uL Mean Platelet Volume 9.6 9.0-12.2 fL Immature Granulocyte % (Auto) 0 % Neutrophils (%) (Auto) 65 42-75 % Lymphocytes (%) (Auto) 19 12-44 % Monocytes (%) (Auto) 8 0-12 % Eosinophils (%) (Auto) 7 0-10 % Basophils (%) (Auto) 0 0-10 % Neutrophils # (Auto) 3.4 1.8-7.8 10^3/uL Lymphocytes # (Auto) 1.0 1.0-4.0 10^3/uL Monocytes # (Auto) 0.4 0.0-1.0 10^3/uL Eosinophils # (Auto) 0.4 H 0.0-0.3 10^3/uL Basophils # (Auto) 0.0 0.0-0.1 10^3/uL Immature Granulocyte # (Auto) 0.0 0.0-0.1 10^3/uL Prothrombin Time 14.7 12.2-14.7 SEC INR Comment 1.1 0.8-1.4 Activated Partial Thromboplast Time 28 24-35 SEC Sodium Level 139 135-145 MMOL/L Potassium Level 5.0 3.6-5.0 MMOL/L Chloride Level 108 H 98-107 MMOL/L Carbon Dioxide Level 22 21-32 MMOL/L Anion Gap 9 5-14 MMOL/L Blood Urea Nitrogen 35 H 7-18 MG/DL Creatinine 1.16 0.60-1.30 MG/DL Estimat Glomerular Filtration Rate 48 BUN/Creatinine Ratio 30 Glucose Level 154 H 70-105 MG/DL Calcium Level 9.1 8.5-10.1 MG/DL Corrected Calcium 9.6 8.5-10.1 MG/DL Total Bilirubin 0.4 0.1-1.0 MG/DL Aspartate Amino Transf (AST/SGOT) 14 5-34 U/L Alanine Aminotransferase (ALT/SGPT) 18 0-55 U/L Alkaline Phosphatase 63 40-136 U/L Total Protein 5.8 L 6.4-8.2 GM/DL Albumin 3.4 3.2-4.5 GM/DL My Orders Orders - DAVID GRIMALDO MD Cbc With Automated Diff (12/10/22 03:52) Comprehensive Metabolic Panel (12/10/22 03:52) Protime With Inr (12/10/22 03:52) Partial Thromboplastin Time (12/10/22 03:52) Ed Iv/Invasive Line Start (12/10/22 03:52) Type And Screen (12/10/22 04:44) D5 1/2 Ns 1000 Ml Iv Solution (Dextrose (12/10/22 04:44) Red Cells Leukocytes Reduced (12/10/22 05:36) Ondansetron Injection (Zofran Injectio (12/10/22 06:15) Code/Resuscitation (12/10/22 06:02) Ed Admission (Communication) (12/10/22 06:03) Vital Signs/I&O 12/10/22 03:38 Temp 36.0 Pulse 94 Resp 20 B/P (MAP) 163/88 (113) Pulse Ox 98 O2 Delivery Room Air Capillary Refill : Less Than 3 Seconds Blood Pressure Mean: 113 Progress Note #1: Time: 04:46 Progress Note Patient was interviewed and examined. Labs have been reviewed including CBC, CMP, and coagulation panel. Hemoglobin demonstrated a 2 g drop from 10.8 on December 04 down to 8.9 today. Patient [facility] on December 04 for routine maintenance as she is in remission from lymphoma. CMP and coag panel are grossly unremarkable. Patient has had multiple bloody stools since arrival. She is presently hemodynamically stable. We discussed options. She was offered admission for observation with monitoring of vital signs, recheck on blood work, and consultation with a surgeon. Alternatively, she was offered observation in the emergency room for 1 to 2 hours and reevaluation at that time. She elects the latter. She experienced some hypoglycemia on her continuous glucose monitoring system with blood sugars as low as the 60s. She drank some sweet tea to correct this. We are keeping her n.p.o. now at this point. We will run some D5 half-normal saline to maintain her blood sugars. Progress Note #2: Time: 05:44 Progress Note Patient has continued to have frequent bouts of bloody stool. She is now starting to feel weak and ill. She would like to be admitted to the hospital. I have ordered a crossmatch of 2 units of PRBC to be held. I have discussed the case with Dr. Forbes, surgeon on-call. He requests a CT scan with GI bleed protocol. Once that is reviewed, plan is to admit to the medicine service with a surgery consult. He also requested that Dr. Sharma be consulted. Progress Note #3: Time: 05:[address] staff is uncertain of what contrast protocol should be done to obtain the images requested by Dr. Forbes. I have communicated [id number] between Dr. Forbes and the construction equipment technician. We will hold off on imaging at this time. I discussed case with Dr. Doran who will place admission orders. Progress Note #4: Time: 06:01 Progress Note I have discussed CODE STATUS with the patient. She request to remain full code. We just checked her blood sugar with her own continuous monitor. Blood sugars presently 73. The D5 half-normal saline is infusing. She has had some transient nausea which will be treated with Zofran. Departure Communication (Admissions) Time/Spoke to Admitting Phy: 05:56 Dr. Doran Time/Spoke to Consulting Phy: 05:52 Dr. Forbes Impression Primary Impression: Rectal bleeding Additional Impressions: History of diverticulosis Acute blood loss anemia Hypoglycemia Disposition: ADMITTED INPATIENT Condition: Stable Admissions Decision to Admit Reason: Admit from ER (General) Decision to Admit/Date: Dec 10, 2022 Time/Decision to Admit Time: 05:52 Departure-Patient Inst. Referrals: NO,LOCAL PHYSICIAN (PCP/Family) Primary Care Physician DAVID GRIMALDO MD Dec 10, 2022 04:34
[2022-12-10] MEDS ORDERED: D5 1/2 NS 1000 ML IV SOLUTION 1,000 ML IV STA (04:44)
[2022-12-10] MEDS ORDERED: ONDANSETRON 4 MG/2 ML (SDV) Z0FRAN IVP ONE (06:15)
[2022-12-10] MEDS ORDERED: HYDROmorphone 2 MG/ML VIAL (DILAUDID) IV PRN (07:30)
[2022-12-10] MEDS ORDERED: CALCIUM CARBONATE 500 MG (TUMS) TAB.CHEW PO PRN (07:30)
[2022-12-10] MEDS ORDERED: BISACODYL 10 MG SUPP (DULCOLAX) PR PRN (07:30)
[2022-12-10] MEDS ORDERED: MELATONIN 3 MG TABLET PO PRN (07:30)
[2022-12-10] MEDS ORDERED: ANTACID SUSP 30 ML UDC (MYLANTA) PO PRN (07:30)
[2022-12-10] MEDS ORDERED: LACTULOSE SYRUP 10GM/15ML (ENULOSE) 30ML UDC PO PRN (07:30)
[2022-12-10] MEDS ORDERED: ONDANSETRON 4 MG (ZOFRAN) ORAL DISSOLVE TAB PO PRN (07:30)
[2022-12-10] MEDS ORDERED: ONDANSETRON 4 MG/2 ML (SDV) Z0FRAN IV PRN (07:30)
[2022-12-10] MEDS ORDERED: diphenhydrAMINE 50 MG/ML INJ (BENADRYL) IVP PRN (07:30)
[2022-12-10] MEDS ORDERED: ACETAMINOPHEN 325 MG TABLET PO PRN (07:30)
[2022-12-10] MEDS ORDERED: polyethylene glycoL POWDER 17 GM (MIRALAX) PACK PO PRN (07:30)
[2022-12-10] MEDS ORDERED: ALPRAZolam 0.25 MG (XANAX) TAB PO PRN (07:30)
[2022-12-10] MEDS ORDERED: diphenhydrAMINE 25 MG TAB (BENADRYL) PO PRN (07:30)
[2022-12-10] MEDS ORDERED: MILK OF MAGNESIA 400 MG/5 ML 30 ML UDC PO PRN (07:30)
--- NOTE | 2022-12-10 07:56 | Consultation-Cardiology ---
HPI-Cardiology Cardiology Consultation: Date of Consultation 12/10/22 Date of Admission Attending Physician Esme Odom Physician Admitting Physician Admitting Physician: Breana Doran DO Attending Physician: Breana Doran DO Consulting Physician ERIKA SOUSA Review of Systems-Cardiology Review of Systems : No GMN-Ibnzhi-Yfalej Hx Patient Social History Alcohol Use?: No Immunizations Up To Date Tetanus Booster (TDap): Unknown Date of Pneumonia Vaccine: Jun 09, 2016 Date of Influenza Vaccine: Jun 09, 2016 Past Medical History PMH As described under Assessment. Family Medical History Family History: Cancer 09 SISTER Family history: Diabetes mellitus 03 MOTHER Stroke 03 MOTHER Allergies and Home Medications Allergies Coded Allergies: Nigvvnm-PXK-LaK Reductase Inhibitor (Unverified Allergy, Mild, MUSCLE PAIN, 03/09/18) adhesive (Unverified Allergy, Unknown, 03/09/18) lisinopril (Unverified Adverse Reaction, Mild, COUGH, 03/09/18) Patient Home Medication List Acetaminophen (Tylenol Extra Strength) 500 Mg Tablet, 1,000 MG PO Q8H PRN for PAIN-MILD (1-4), (Reported) Entered as Reported by: NURA DENNIS on 12/02/22 1210 Last Action: Held Alirocumab (Praluent Pen) 75 Mg/Ml Pen.injctr, 75 MG SQ [id number], (Reported) Entered as Reported by: NURA DENNIS on 06/23/22 1430 Last Action: Held Aspirin (Aspirin EC) 81 Mg Tablet.dr, 81 MG PO DAILY, (Reported) Entered as Reported by: CRISTIN JEFFREY on 12/10/22 1041 Last Action: Held Carboxymethylcellulos/Glycerin (Refresh Relieva 0.5-0.9% Drop) 0.5 %-0.9 % Drops, 1 DROP OS QID PRN for DRY EYES, (Reported) Entered as Reported by: NURA DENNIS on 12/02/22 1207 Last Action: Converted Carboxymethylcellulose Sodium (Refresh Tears) 0.5 % Drops, 1 DROP OD QID PRN for DRY EYES, (Reported) Entered as Reported by: NURA DENNIS on 06/23/22 1428 Last Action: Converted Carvedilol (Carvedilol) 12.5 Mg Tablet, 12.5 MG PO BID, (Reported) Entered as Reported by: CRISTIN JEFFREY on 12/10/221040 Last Action: Continued Cholecalciferol (Vitamin D3) (Vitamin D3) 25 Mcg (1000 Unit) Tablet, 50 MCG PO BID, (Reported) Entered as Reported by: NURA DENNIS on 12/02/221206 Last Action: Continued Clobetasol Propionate (Clobetasol Propionate) 0.05 % Cream..g., 1 APPLIC TP BID, (Reported) Entered as Reported by: NURA DENNIS on 12/02/221206 Last Action: Converted Dextrose (Glucose) 4 Gram Tab.chew, 4 GM PO UD PRN for HYPOGLYCEMIA, (Reported) Entered as Reported by: NURA DENNIS on 06/23/221436 Last Action: Held Diclofenac Sodium (Diclofenac Sodium) 1 % Gel..gram., 1 APPLIC TOP QID PRN for PAIN-BREAKTHROUGH, (Reported) Entered as Reported by: CRISTIN JEFFREY on 12/10/221040 Last Action: Continued Furosemide (Furosemide) 20 Mg Tablet, 20 MG PO DAILY, (Reported) Entered as Reported by: NURA DENNIS on 12/02/221206 Last Action: Continued Hydrochlorothiazide (Hydrochlorothiazide) 25 Mg Tablet, 25 MG PO DAILY, (Reported) Entered as Reported by: CHRISTIANO LOPEZ on 03/09/181437 Last Action: Held Insulin Glargine-Yfgn (Semglee (Yfgn) Pen) 100 Unit/Ml (3 Ml) Insuln.pen, 28 UNIT SQ BID, (Reported) Entered as Reported by: NURA DENNIS on 06/23/22 143 Last Action: Held Levothyroxine Sodium (Levothyroxine Sodium) 75 Mcg Tablet, 75 MCG PO DAILY, (Reported) Entered as Reported by: CHRISTIANO LOPEZ on 03/09/181437 Last Action: Continued Loratadine (Loratadine) 10 Mg Tablet, 10 MG PO DAILY, (Reported) Entered as Reported by: CHRISTIANO LOPEZ on 03/09/181437 Last Action: Continued Nitroglycerin (Nitroglycerin) 0.4 Mg Tab.subl, 0.4 MG SL UD PRN for CHEST PAIN, (Reported) Entered as Reported by: CRISTIN JEFFREY on 4/12/23 1041 Last Action: Continued Omeprazole (Omeprazole) 20 Mg Tablet.dr, 20 MG PO DAILY, (Reported) Entered as Reported by: CHRISTIANO LOPEZ on 03/09/18 1438 Last Action: Converted Oxybutynin Chloride (Oxybutynin Chloride ER) 10 Mg Tab.er.24, 10 MG PO DAILY, (Reported) Entered as Reported by: CHRISTIANO LOPEZ on 10/30/16 1252 Last Action: Converted Pioglitazone HCl (Pioglitazone HCl) 45 Mg Tablet, 45 MG PO DAILY, (Reported) Entered as Reported by: NURA DENNIS on 06/23/22 1433 Last Action: Converted Polyethylene Glycol 3350 (Miralax) 17 Gram Powd.pack, 17 GM PO DAILY, (Reported) Entered as Reported by: CRISTIN JEFFREY on 12/10/22 104 Last Action: Continued Potassium Chloride (Potassium Chloride) 10 Meq Capsule.er, 10 MEQ PO DAILY, ( Reported) Entered as Reported by: CRISTIN JEFFREY on 12/10/22 104 Last Action: Converted Urea (Urea) 20 % Cream..g., 1 APPLIC TOP UD PRN for ITCHING, (Reported) Entered as Reported by: CRISTIN JEFFREY on 12/10/22 104 Last Action: Converted Vit C/E/Zn/Coppr/Lutein/Zeaxan (Preservision Areds 2 Softgel) 250MG-90MG Capsule, 1 EACH PO BID, (Reported) Entered as Reported by: CHRISTIANO LOPEZ on 10/30/16 1252 Last Action: Converted Discontinued Medications Aspirin (Aspirin) 81 Mg Tab.chew, 81 MG PO DAILY Discontinued Reason: Duplicate Order Prescribed by: MAXIM WRIGHT on 12/02/22 160 Last Action: Discontinued Carvedilol (Carvedilol) 12.5 Mg Tablet, 12.5 MG PO BID Discontinued Reason: Duplicate Order Prescribed by: MAXIM WRIGHT on 12/02/221604 Last Action: Discontinued Nitroglycerin (Nitroglycerin) 0.4 Mg Tab.subl, 0.4 MG SL PRN Discontinued Reason: Duplicate Order Prescribed by: MAXIM WRIGHT on 12/02/22 160 Last Action: Discontinued Potassium Chloride (Potassium Chloride) 10 Meq Tab.er.prt, 10 MEQ PO DAILY Discontinued Reason: Duplicate Order Prescribed by: MAXIM WRIGHT on 12/02/22 2096 Last Action: Discontinued Physical Exam-Cardiology Physical Exam Vital Signs/I&O 12/10/22 12/11/22 12/11/22 12/11/22 23:12 01:00 03:36 07:00 Temp 36.9 36.7 Pulse 80 80 82 81 Resp 18 18 B/P (MAP) 121/60 (80) 132/62 (85) Pulse Ox 95 96 O2 Delivery Room Air Room Air 12/11/22 08:12 Temp 36.8 Pulse 77 Resp 19 B/P (MAP) 117/58 (77) Pulse Ox 97 O2 Delivery Room Air 12/10/22 23:59 Intake Total 1960 ml Output Total 1300 ml Balance 660 ml Capillary Refill : Less Than 3 Seconds Data Review Labs Laboratory Tests 12/10/22 12:00: White Blood Count 4.7, Red Blood Count 2.48L, Hemoglobin 7.0L, Hematocrit 23L, Mean Corpuscular Volume 91, Mean Corpuscular Hemoglobin 28, Mean Corpuscular Hemoglobin Concent 31L, Red Cell Distribution Width 14.6H, Platelet Count 142, Mean Platelet Volume 9.8, Immature Granulocyte % (Auto) 0, Neutrophils (%) (Auto) 72, Lymphocytes (%) (Auto) 17, Monocytes (%) (Auto) 7, Eosinophils (%) (Auto) 4, Basophils (%) (Auto) 0, Neutrophils # (Auto) 3.3, Lymphocytes # (Auto) 0.8L, Monocytes # (Auto) 0.3, Eosinophils # (Auto) 0.2, Basophils # (Auto) 0.0, Immature Granulocyte # (Auto) 0.0, Percent Immature Platelet Fraction 1.3 12/11/22 06:35: White Blood Count 4.5, Red Blood Count 2.51L, Hemoglobin 7.1L, Hematocrit 22L, Mean Corpuscular Volume 89, Mean Corpuscular Hemoglobin 28, Mean Corpuscular Hemoglobin Concent 32, Red Cell Distribution Width 16.8H, Platelet Count 127L, Mean Platelet Volume 9.7, Immature Granulocyte % (Auto) 0, Neutrophils (%) (Auto) 71, Lymphocytes (%) (Auto) 17, Monocytes (%) (Auto) 7, Eosinophils (%) (Auto) 4, Basophils (%) (Auto) 0, Neutrophils # (Auto) 3.2, Lymphocytes # (Auto) 0.8L, Monocytes # (Auto) 0.3, Eosinophils # (Auto) 0.2, Basophils # (Auto) 0.0, Immature Granulocyte # (Auto) 0.0, Percent Immature Platelet Fraction 1.6, Sod ium Level 137, Potassium Level 4.4, Chloride Level 108H, Carbon Dioxide Level 21, Anion Gap 8, Blood Urea Nitrogen 23H, Creatinine 1.05, Estimat Glomerular Filtration Rate 54, BUN/Creatinine Ratio 22, Glucose Level 201H, Calcium Level 8.6, Corrected Calcium 9.5, Total Bilirubin 0.4, Aspartate Amino Transf (AST/SGOT) 19, Alanine Aminotransferase (ALT/SGPT) 15, Alkaline Phosphatase 39L, Total Protein 4.9L, Albumin 2.9L A/P-Cardiology Assessment/Admission Diagnosis GIB - management per Dr. Forbes CAD - Cardiac cath of 12-02-22: Left main coronary artery: Ok; Left anterior descending coronary artery: Long, up to 90% in ostial and prox LAD; Left circumflex coronary artery: Long, up to 80 in prox portion of a large OM, and 80% distal left circumflex; Right coronary artery: Dominant with up to 80 distal (but prox to PDA and PL). LVEDP 20 mmHg. LVEF 60% - referred to [facility] for eval for CABG DM II Hyperlipidemia Hypertension Non-Hodgkin's Lymphoma - following with Dr. Torres Clinical Quality Measures DVT/VTE Risk/Contraindication: Contraindications-Pharm: Other *list below* Other: ERIKA Pearson [employer] Dec 10, 2022 07:56
[2022-12-10] MEDS ORDERED: RT-ALBUTEROL SULF 2.5 MG/3 ML PRE-MIX VIAL INH PRN (08:30)
--- NOTE | 2022-12-10 08:43 | History & Physical ---
RAFAEL POZO 12/10/22 0843: History of Present Illness History of Present Illness Reason for visit/HPI This patient is an 82 year old female with history of Diverticulosis, CAD, HLD, HTN, CVA, GERD, Chronic Constipation, Insulin dependent Diabetes, hypothyroidism, lymphoma (in remission), skin cancer, and shingles who presented to the ED overnight for acute hematochezia which began last night at around 2200. She reports having a small BM at that time and noticing bright red blood in a small amount. Following this she had several other BM's with increasing amount of bright red blood. She denies pain associated with the BM's and also denies rectal bleeding between BM's. She denies fevers, chills, recent abd pain, or prior occurence of this happening. While in the ED her Hgb was found to be 8.9 which is down from 10.8 on 12/04/22. Date of Admission Dec 10, 2022 at 07:30 Date Seen by a Provider: Dec 10, 2022 Time Seen by a Provider: 07:40 I consulted on this patient on 12/10/22 08:35 Attending Physician No,Local Physician Admitting Physician Admitting Physician: Breana Blount DO Attending Physician: Breana Blount DO Consult Allergies and Home Medications Allergies Coded Allergies: Iikptiy-GPX-WlN Reductase Inhibitor (Unverified Allergy, Mild, MUSCLE PAIN, 03/09/18) adhesive (Unverified Allergy, Unknown, 03/09/18) lisinopril (Unverified Adverse Reaction, Mild, COUGH, 03/09/18) Patient Home Medication List Acetaminophen (Tylenol Extra Strength) 500 Mg Tablet, 1,000 MG PO Q8H PRN for PAIN-MILD (1-4), (Reported) Entered as Reported by: NURA DENNIS on 12/02/22 1210 Last Action: Held Alirocumab (Praluent Pen) 75 Mg/Ml Pen.injctr, 75 MG SQ [id number], (Reported) Entered as Reported by: NURA DENNIS on 06/23/22 1430 Last Action: Held Aspirin (Aspirin EC) 81 Mg Tablet.dr, 81 MG PO DAILY, (Reported) Entered as Reported by: CRISTIN JEFFREY on 12/10/22 1041 Last Action: Held Carboxymethylcellulos/Glycerin (Refresh Relieva 0.5-0.9% Drop) 0.5 %-0.9 % Drops, 1 DROP OS QID PRN for DRY EYES, (Reported) Entered as Reported by: NURA DENNIS on 12/02/221206 Last Action: Converted Carboxymethylcellulose Sodium (Refresh Tears) 0.5 % Drops, 1 DROP OD QID PRN for DRY EYES, (Reported) Entered as Reported by: NURA DENNIS on 06/23/22 1428 Last Action: Converted Carvedilol (Carvedilol) 12.5 Mg Tablet, 12.5 MG PO BID, (Reported) Entered as Reported by: CRISTIN JEFFREY on 12/10/22 104 Last Action: Continued Cholecalciferol (Vitamin D3) (Vitamin D3) 25 Mcg (1000 Unit) Tablet, 50 MCG PO BID, (Reported) Entered as Reported by: NURA DENNIS on 12/02/221206 Last Action: Continued Clobetasol Propionate (Clobetasol Propionate) 0.05 % Cream..g., 1 APPLIC TP BID, (Reported) Entered as Reported by: NURA DENNIS on 12/02/221206 Last Action: Converted Dextrose (Glucose) 4 Gram Tab.chew, 4 GM PO UD PRN for HYPOGLYCEMIA, (Reported) Entered as Reported by: NURA DENNIS on 06/23/22 143 Last Action: Held Diclofenac Sodium (Diclofenac Sodium) 1 % Gel..gram., 1 APPLIC TOP QID PRN for PAIN-BREAKTHROUGH, (Reported) Entered as Reported by: CRISTIN JEFFREY on 12/10/22 104 Last Action: Continued Furosemide (Furosemide) 20 Mg Tablet, 20 MG PO DAILY, (Reported) Entered as Reported by: NURA DENNIS on 12/02/221206 Last Action: Continued Hydrochlorothiazide (Hydrochlorothiazide) 25 Mg Tablet, 25 MG PO DAILY, (Reported) Entered as Reported by: CHRISTIANO LOPEZ on 03/09/18 1438 Last Action: Held Insulin Glargine-Yfgn (Semglee (Yfgn) Pen) 100 Unit/Ml (3 Ml) Insuln.pen, 28 UNIT SQ BID, (Reported) Entered as Reported by: NURA DENNIS on 06/23/22 1432 Last Action: Held Levothyroxine Sodium (Levothyroxine Sodium) 75 Mcg Tablet, 75 MCG PO DAILY, (Reported) Entered as Reported by: CHRISTIANO LOPEZ on 03/09/181437 Last Action: Continued Loratadine (Loratadine) 10 Mg Tablet, 10 MG PO DAILY, (Reported) Entered as Reported by: CHRISTIANO LOPEZ on 03/09/181437 Last Action: Continued Nitroglycerin (Nitroglycerin) 0.4 Mg Tab.subl, 0.4 MG SL UD PRN for CHEST PAIN, (Reported) Entered as Reported by: CRISTIN JEFFREY on 12/10/22 104 Last Action: Continued Omeprazole (Omeprazole) 20 Mg Tablet.dr, 20 MG PO DAILY, (Reported) Entered as Reported by: CHRISTIANO LOPEZ on 03/09/181437 Last Action: Converted Oxybutynin Chloride (Oxybutynin Chloride ER) 10 Mg Tab.er.24, 10 MG PO DAILY, (Reported) Entered as Reported by: CHRISTIANO LOPEZ on 10/30/16 1252 Last Action: Converted Pioglitazone HCl (Pioglitazone HCl) 45 Mg Tablet, 45 MG PO DAILY, (Reported) Entered as Reported by: NURA DENNIS on 06/23/22 1433 Last Action: Converted Polyethylene Glycol 3350 (Miralax) 17 Gram Powd.pack, 17 GM PO DAILY, (Reported) Entered as Reported by: CRISTIN JEFFREY on 12/10/22 1041 Last Action: Continued Potassium Chloride (Potassium Chloride) 10 Meq Capsule.er, 10 MEQ PO DAILY, (Reported) Entered as Reported by: CRISTIN JEFFREY on 12/10/22 1041 Last Action: Converted Urea (Urea) 20 % Cream..g., 1 APPLIC TOP UD PRN for ITCHING, (Reported) Entered as Reported by: CRISTIN JEFFREY on 12/10/22 1045 Last Action: Converted Vit C/E/Zn/Coppr/Lutein/Zeaxan (Preservision Areds 2 Softgel) 250MG-90MG Capsule, 1 EACH PO BID, (Reported) Entered as Reported by: CHRISTIANO LOPEZ on 10/30/16 1252 Last Action: Converted Discontinued Medications Aspirin (Aspirin) 81 Mg Tab.chew, 81 MG PO DAILY Discontinued Reason: Duplicate Order Prescribed by: MAXIM SHARMA on 12/02/22 160 Last Action: Discontinued Carvedilol (Carvedilol) 12.5 Mg Tablet, 12.5 MG PO BID Discontinued Reason: Duplicate Order Prescribed by: MAXIM SHARMA on 12/02/221604 Last Action: Discontinued Nitroglycerin (Nitroglycerin) 0.4 Mg Tab.subl, 0.4 MG SL PRN Discontinued Reason: Duplicate Order Prescribed by: MAXIM SHARMA on 12/02/221604 Last Action: Discontinued Potassium Chloride (Potassium Chloride) 10 Meq Tab.er.prt, 10 MEQ PO DAILY Discontinued Reason: Duplicate Order Prescribed by: MAXIM SHARMA on 12/02/221604 Last Action: Discontinued Past Boarrnx-Fvwkwp-Lgbcns Hx Patient Social History Marrital Status: Employed/Student: retired Tobacco Use?: No Use of E-Cig and/or Vaping dev: No Substance use?: No Alcohol Use?: No Immunizations Up To Date Date of Influenza Vaccine: Jun 09, 2016 Tetanus Booster (TDap): Unknown Hepatitis A: No Hepatitis B: No Date of Pneumonia Vaccine: Jun 09, 2016 Seasonal Allergies Seasonal Allergies: Yes (MILD) Current Status Communicates: Verbally Primary Language: Malay Preferred Spoken Language: Malay Past Medical History Surgeries: Abdominal (Colonoscopy), Adenoidectomy, Bladder Surgery, Cardiac (Heart cath without intervention), Hysterectomy, Tonsillectomy Coronary Artery Disease, High Cholesterol, Hypertension Stroke [employer] History: Hysterectomy Sexually Transmitted Disease: No HIV/AIDS: No Gastroesophageal Reflux, Chronic Constipation, Diverticulosis Arthritis Diabetes, Insulin dep, Hypothyroidsim Loss of Vision: Bilateral Hearing Impairment: Denies Skin, Lymphoma Did You Recieve Any Treatments: Yes What Type of Treatment Did You: Surgical Intervention Adverse Reaction/Blood Tranf: No (N/A) Family Medical History Cancer 09 SISTER Family history: Diabetes mellitus 03 MOTHER Stroke 03 MOTHER No Pertinent Family Hx Review of Systems Constitutional: No chills, No fever EENTM: No hearing loss, No vision loss Respiratory: No cough; dyspnea on exertion; No short of breath Cardiovascular: No palpitations; other (on going chest pressure last few months) Gastrointestinal: No abdominal pain, No constipation; nausea; No vomiting; other Genitourinary: No decreased output, No dysuria, No hematuria Musculoskeletal: no symptoms reported Skin: no symptoms reported Psychiatric/Neurological: No Symptoms Reported Physical Exam Vital Signs Vital Signs - First Documented 12/10/22 12/10/22 03:38 08:18 Temp 36.0 Pulse 94 Resp 20 B/P (MAP) 163/88 (113) Pulse Ox 98 O2 Delivery Room Air FiO2 21 Capillary Refill : Less Than 3 Seconds Height, Weight, BMI Height: 5'8.00" Weight: 213lbs. 0.0oz. 96.019911qg; 38.00 BMI Method:Stated General Appearance: No Apparent Distress, WD/WN, Obese Eyes: Bilateral Eye PERRL, Bilateral Eye EOMI HEENT: PERRL/EOMI, Moist Mucous Membranes Neck: Non Tender, Supple Respiratory: Chest Non Tender, Lungs Clear, Normal Breath Sounds, No Accessory Muscle Use, No Respiratory Distress Cardiovascular: Regular Rate, Rhythm, No Murmur, Normal Peripheral Pulses Gastrointestinal: Normal Bowel Sounds, Non Tender, Soft Back: Normal Inspection, No Vertebral Tenderness Extremity: Normal Capillary Refill, Non Tender, No Calf Tenderness, No Pedal Edema Neurologic/Psychiatric: Alert, Oriented x3, No Motor/Sensory Deficits, Normal Mood/Affect Skin: Normal Color, Warm/Dry Lymphatic: No Adenopathy Assessment/Plan Assessment and Plan Acute Rectal Bleeding -upper vs. lower GI bleed. 2nd to diverticulosis vs. internal hemorrhoid vs mass vs upper GI. -No history of Blood thinner use and normal coag study. -NPO. Hold ASA until bleeding stops. Zofran for nausea. Consult Surg Anemia -Hgb 8.9 today down from 10.8 on 12/04. Will monitor and replace with pRBC for Hgb < 8.0 given CAD history. Insulin Dependent Diabetes -Insulin sliding scale HX CAD -Heart Cath 12/02/[address] Sharma -> Multi-vessel disease. Refferal placed to Dr. Benjamin at [place] to discuss CABG. LVEF of 60% at that time. -Praluent Injectable for HLD. Allergic to statins. -Cardiology Consulted with recommendations appreciated HLD HTN -Will monitor BP and restart home meds as able. Hypothyroidism -Continue home medications Diet: NPO DVT proph: Lovenox & SCDs Clinical Quality Measures DVT/VTE Risk/Contraindication: Contraindications-Pharm: Other *list below* Other: BREANA Fritz DO 12/11/22 0458: Allergies and Home Medications Allergies Coded Allergies: Nmymdqw-IYT-ZfR Reductase Inhibitor (Unverified Allergy, Mild, MUSCLE PAIN, 03/09/18) adhesive (Unverified Allergy, Unknown, 03/09/18) lisinopril (Unverified Adverse Reaction, Mild, COUGH, 03/09/18) Patient Home Medication List Home Medication List Reviewed: Yes Acetaminophen (Tylenol Extra Strength) 500 Mg Tablet, 1,000 MG PO Q8H PRN for PAIN-MILD (1-4), (Reported) Entered as Reported by: NURA DENNIS on 12/02/22 1210 Last Action: Held Alirocumab (Praluent Pen) 75 Mg/Ml Pen.injctr, 75 MG SQ [id number], (Reported) Entered as Reported by: NURA DENNIS on 06/23/22 1430 Last Action: Held Aspirin (Aspirin EC) 81 Mg Tablet.dr, 81 MG PO DAILY, (Reported) Entered as Reported by: CRISTIN JEFFREY on 12/10/22 1041 Last Action: Held Carboxymethylcellulos/Glycerin (Refresh Relieva 0.5-0.9% Drop) 0.5 %-0.9 % Drops , 1 DROP OS QID PRN for DRY EYES, (Reported) Entered as Reported by: NURA DENNIS on 12/02/22 120 Last Action: Converted Carboxymethylcellulose Sodium (Refresh Tears) 0.5 % Drops, 1 DROP OD QID PRN for DRY EYES, (Reported) Entered as Reported by: NURA DENNIS on 06/23/22 1428 Last Action: Converted Carvedilol (Carvedilol) 12.5 Mg Tablet, 12.5 MG PO BID, (Reported) Entered as Reported by: CRISTIN JEFFREY on 12/10/22 104 Last Action: Continued Cholecalciferol (Vitamin D3) (Vitamin D3) 25 Mcg (1000 Unit) Tablet, 50 MCG PO BID, (Reported) Entered as Reported by: NURA DENNIS on 12/02/22 120 Last Action: Continued Clobetasol Propionate (Clobetasol Propionate) 0.05 % Cream..g., 1 APPLIC TP BID, (Reported) Entered as Reported by: NURA DENNIS on 12/02/22 120 Last Action: Converted Dextrose (Glucose) 4 Gram Tab.chew, 4 GM PO UD PRN for HYPOGLYCEMIA, (Reported) Entered as Reported by: NURA DENNIS on 06/23/22 143 Last Action: Held Diclofenac Sodium (Diclofenac Sodium) 1 % Gel..gram., 1 APPLIC TOP QID PRN for PAIN-BREAKTHROUGH, (Reported) Entered as Reported by: CRISTIN JEFFREY on 12/10/22 1041 Last Action: Continued Furosemide (Furosemide) 20 Mg Tablet, 20 MG PO DAILY, (Reported) Entered as Reported by: NURA DENNIS on 12/02/22 1207 Last Action: Continued Hydrochlorothiazide (Hydrochlorothiazide) 25 Mg Tablet, 25 MG PO DAILY, ( Reported) Entered as Reported by: CHRISTIANO LOPEZ on 03/09/18 143 Last Action: Held Insulin Glargine-Yfgn (Semglee (Yfgn) Pen) 100 Unit/Ml (3 Ml) Insuln.pen, 28 UNIT SQ BID, (Reported) Entered as Reported by: NURA DENNIS on 06/23/22 143 Last Action: Held Levothyroxine Sodium (Levothyroxine Sodium) 75 Mcg Tablet, 75 MCG PO DAILY, (Reported) Entered as Reported by: CHRISTIANO LOPEZ on 03/09/18 143 Last Action: Continued Loratadine (Loratadine) 10 Mg Tablet, 10 MG PO DAILY, (Reported) Entered as Reported by: CHRISTIANO LOPEZ on 03/09/181437 Last Action: Continued Nitroglycerin (Nitroglycerin) 0.4 Mg Tab.subl, 0.4 MG SL UD PRN for CHEST PAIN, (Reported) Entered as Reported by: CRISTIN JEFFREY on 12/10/22 1041 Last Action: Continued Omeprazole (Omeprazole) 20 Mg Tablet.dr, 20 MG PO DAILY, (Reported) Entered as Reported by: CHRISTIANO LOPEZ on 03/09/18 143 Last Action: Converted Oxybutynin Chloride (Oxybutynin Chloride ER) 10 Mg Tab.er.24, 10 MG PO DAILY, (Reported) Entered as Reported by: CHRISTIANO LOPEZ on 10/30/16 1252 Last Action: Converted Pioglitazone HCl (Pioglitazone HCl) 45 Mg Tablet, 45 MG PO DAILY, (Reported) Entered as Reported by: NURA DENNIS on 06/23/22 1433 Last Action: Converted Polyethylene Glycol 3350 (Miralax) 17 Gram Powd.pack, 17 GM PO DAILY, (Reported) Entered as Reported by: CRISTIN JEFFREY on 12/10/22 104 Last Action: Continued Potassium Chloride (Potassium Chloride) 10 Meq Capsule.er, 10 MEQ PO DAILY, (Reported) Entered as Reported by: CRISTIN JEFFREY on 12/10/22 104 Last Action: Converted Urea (Urea) 20 % Cream..g., 1 APPLIC TOP UD PRN for ITCHING, (Reported) Entered as Reported by: CRISTIN JEFFREY on 12/10/22 104 Last Action: Converted Vit C/E/Zn/Coppr/Lutein/Zeaxan (Preservision Areds 2 Softgel) 250MG-90MG Capsule, 1 EACH PO BID, (Reported) Entered as Reported by: CHRISTIANO LOPEZ on 10/30/16 1252 Last Action: Converted Discontinued Medications Aspirin (Aspirin) 81 Mg Tab.chew, 81 MG PO DAILY Discontinued Reason: Duplicate Order Prescribed by: MAXIM SHARMA on 12/02/22 160 Last Action: Discontinued Carvedilol (Carvedilol) 12.5 Mg Tablet, 12.5 MG PO BID Discontinued Reason: Duplicate Order Prescribed by: MAXIM SHARMA on 12/02/221604 Last Action: Discontinued Nitroglycerin (Nitroglycerin) 0.4 Mg Tab.subl, 0.4 MG SL PRN Discontinued Reason: Duplicate Order Prescribed by: MAXIM SHARMA on 12/02/221604 Last Action: Discontinued Potassium Chloride (Potassium Chloride) 10 Meq Tab.er.prt, 10 MEQ PO DAILY Discontinued Reason: Duplicate Order Prescribed by: MAXIM SHARMA on 12/02/221604 Last Action: Discontinued Past Pxwfgvl-Jwhmfh-Ffnuze Hx Patient Social History Marrital Status: Employed/Student: retired Past Medical History Coronary Artery Disease, High Cholesterol, Hypertension Family Medical History Cancer 09 SISTER Family history: Diabetes mellitus 03 MOTHER Stroke 03 MOTHER Review of Systems Constitutional: see HPI Physical Exam General Appearance: No Apparent Distress, WD/WN, Chronically ill Respiratory: Lungs Clear, Normal Breath Sounds Cardiovascular: Regular Rate, Rhythm Assessment/Plan Assessment and Plan Problems: (1) Rectal bleeding Status: Acute (2) Acute blood loss anemia Status: Acute (3) Hypoglycemia Status: Acute Admission Diagnosis Admission Status: Observation Supervisory-Addendum Brief Verification & Attestation Participated in pt care: history, MDM, physical Personally performed: exam, history, MDM, supervision of care Care discussed with: Medical Student Procedures: n/a Results interpretation: Verified all documentation Verification and Attestation of Medical Student E/M Service A medical student performed and documented this service in my presence. I reviewed and verified all information documented by the medical student and made modifications to such information, when appropriate. I personally performed the physical exam and medical decision making. Breana Blount, Dec 11, 2022,04:57 RAFAEL POZO Dec 10, 2022 08:43 BREANA BLOUNT DO Dec 11, 2022 04:58
--- NOTE | 2022-12-10 08:53 | Consultation-Cardiology ---
HPI-Cardiology Cardiology Consultation: Date of Consultation 12/10/22 Time Seen by a Provider: 08:00 Date of Admission Attending Physician No,Local Physician Admitting Physician Admitting Physician: Breana Doran DO Attending Physician: Breana Doran DO Consulting Physician MAXIM WRIGHT MD, MA, FACP, FACC, FSCAI, CCDS Physician requesting consult: Dr Doran HPI: Chief Complaint: Reason for Card consult: CAD 82 yo woman who develop bright red blood per rectum last night and has not been hospitalized. No cp or abd pain or syncope or shortness of breath at rest. Has been diagnosed with multivessel CAD on card cath of 12/02/22. Is awaiting CABG. Has not been having any chest pain lately. No n/v/d. No focal weakness. Some gen malaise and weakness. Mild chronic ankle swelling Review of Systems-Cardiology Review of Systems Constitutional: malaise; No weight loss; weight gain (states 50lb wgt gain since developing L facial shingle in May 2022); No other Eyes: No vision change Ears/Nose/Throat: No ear discharge, No nasal drainage, No recent hearing loss Respiratory: As described under HPI Cardiovascular: As described under HPI Gastrointestinal: As described under HPI Genitourinary: No dysuria, No hematuria, No urine frequency changes : No Musculoskeletal: back pain (chronic), joint pain (chronic) Skin: No rash, No ulcerations Psychiatric/Neurological: No seizure, No focal weakness, No syncope Hematologic: No bleeding abnormalities DKF-Vdclsy-Msastc Hx Patient Social History Alcohol Use?: No Immunizations Up To Date Tetanus Booster (TDap): Unknown Date of Pneumonia Vaccine: Jun 09, 2016 Date of Influenza Vaccine: Jun 09, 2016 Past Medical History PMH As described under Assessment. Family Medical History Family History: Cancer 09 SISTER Family history: Diabetes mellitus 03 MOTHER Stroke 03 MOTHER Allergies and Home Medications Allergies Coded Allergies: Frzjfco-FWJ-NfO Reductase Inhibitor (Unverified Allergy, Mild, MUSCLE PAIN, 03/09/18) adhesive (Unverified Allergy, Unknown, 03/09/18) lisinopril (Unverified Adverse Reaction, Mild, COUGH, 03/09/18) Patient Home Medication List Home Medication List Reviewed: Yes Acetaminophen (Tylenol Extra Strength) 500 Mg Tablet, 1,000 MG PO Q8H PRN for PAIN-MILD (1-4), (Reported) Entered as Reported by: NURA DENNIS on 12/02/22 1210 Alirocumab (Praluent Pen) 75 Mg/Ml Pen.injctr, 75 MG SQ [id number], (Reported) Entered as Reported by: NURA DENNIS on 06/23/22 1430 Aspirin (Aspirin) 81 Mg Tab.chew, 81 MG PO DAILY Prescribed by: MAXIM WRIGHT on 12/02/22 1602 Carboxymethylcellulos/Glycerin (Refresh Relieva 0.5-0.9% Drop) 0.5 %-0.9 % Drops, 1 DROP OS QID PRN for DRY EYES, (Reported) Entered as Reported by: NURA DENNIS on 12/02/22 1207 Carboxymethylcellulose Sodium (Refresh Tears) 0.5 % Drops, 1 DROP OD QID PRN for DRY EYES, (Reported) Entered as Reported by: NURA DENNIS on 06/23/22 1428 Carvedilol (Carvedilol) 12.5 Mg Tablet, 12.5 MG PO BID Prescribed by: MAXIM WRIGHT on 12/02/22 1605 Cholecalciferol (Vitamin D3) (Vitamin D3) 25 Mcg (1000 Unit) Tablet, 25 MCG PO DAILY, (Reported) Entered as Reported by: NURA DENNIS on 12/02/22 1207 Clobetasol Propionate (Clobetasol Propionate) 0.05 % Cream..g., 1 APPLIC TP BID, (Reported) Entered as Reported by: NURA DENNIS on 12/02/22 1207 Dextrose (Glucose) 4 Gram Tab.chew, 4 GM PO DAILY PRN for HYPOGLYCEMIA, (Reported) Entered as Reported by: NURA DENNIS on 06/23/22 1437 Furosemide (Furosemide) 20 Mg Tablet, 20 MG PO DAILY, (Reported) Entered as Reported by: NURA DENNIS on 12/02/22 1207 Hydrochlorothiazide (Hydrochlorothiazide) 25 Mg Tablet, 25 MG PO DAILY, (Reported) Entered as Reported by: CHRISTIANO LOPEZ on 03/09/18 1438 Insulin Glargine-Yfgn (Semglee (Yfgn) Pen) 100 Unit/Ml (3 Ml) Insuln.pen, 28 UNIT SQ BID, (Reported) Entered as Reported by: NURA DENNIS on 06/23/22 1432 Levothyroxine Sodium (Levothyroxine Sodium) 75 Mcg Tablet, 75 MCG PO DAILY, (Reported) Entered as Reported by: CHRISTIANO LOPEZ on 03/09/18 1438 Loratadine (Loratadine) 10 Mg Tablet, 10 MG PO DAILY, (Reported) Entered as Reported by: CHRISTIANO LOPEZ on 03/09/18 1438 Nitroglycerin (Nitroglycerin) 0.4 Mg Tab.subl, 0.4 MG SL PRN Prescribed by: MAXIM WRIGHT on 12/02/22 1605 Omeprazole (Omeprazole) 20 Mg Tablet.dr, 20 MG PO DAILY, (Reported) Entered as Reported by: CHRISTIANO LOPEZ on 03/09/18 1438 Oxybutynin Chloride (Oxybutynin Chloride ER) 10 Mg Tab.er.24, 10 MG PO DAILY, (Reported) Entered as Reported by: CHRISTIANO LOPEZ on 10/30/16 1252 Pioglitazone HCl (Pioglitazone HCl) 45 Mg Tablet, 45 MG PO DAILY, (Reported) Entered as Reported by: NURA DENNIS on 06/23/22 1433 Potassium Chloride (Potassium Chloride) 10 Meq Tab.er.prt, 10 MEQ PO DAILY Prescribed by: MAXIM WRIGHT on 12/02/22 1605 Vit C/E/Zn/Coppr/Lutein/Zeaxan (Preservision Areds 2 Softgel) 1 Each Capsule, 2 EACH PO DAILY, (Reported) Entered as Reported by: CHRISTIANO LOPEZ on 10/30/16 1252 Physical Exam-Cardiology Physical Exam Vital Signs/I&O 12/10/22 12/10/22 12/10/22 12/10/22 03:38 07:47 08:18 08:25 Temp 36.0 36.1 36.1 Pulse 94 71 71 Resp 20 19 B/P (MAP) 163/88 (113) 142/79 (100) Pulse Ox 98 100 100 100 O2 Delivery Room Air Room Air Room Air FiO2 21 Capillary Refill : Less Than 3 Seconds Constitutional: AAO x 3, well-developed, well-nourished HEENT: EOMI, hearing is well preserved Neck: carotid pulses are 2 + bilaterally, with good upstrokes Respiratory: No accessory muscle use; chest expansion is symmetric, chest is bilaterally symmetric, other (good, bilateral air entry) Cardiovascular: regular rate-rhythm, S1 and S2, systolic murmur Gastrointestinal: No tender; soft; No guarding, No rebound; audible bowel sounds Extremities: swelling (mild, bilat leg swelling); No clubbing, No cyanosis Neurologic/Psychiatric: oriented x 3, other (moves all limbs equally) Skin: rash (mild rash and swelling on L forehead (pt states residual from shingles)) Data Review Labs Laboratory Tests 12/10/22 04:00: White Blood Count 5.2, Red Blood Count 3.08L, Hemoglobin 8.9L, Hematocrit 28L, Mean Corpuscular Volume 92, Mean Corpuscular Hemoglobin 29, Mean Corpuscular Hemoglobin Concent 31L, Red Cell Distribution Width 14.6H, Platelet Count 151, Mean Platelet Volume 9.6, Immature Granulocyte % (Auto) 0, Neutrophils (%) (Auto) 65, Lymphocytes (%) (Auto) 19, Monocytes (%) (Auto) 8, Eosinophils (%) (Auto) 7, Basophils (%) (Auto) 0, Neutrophils # (Auto) 3.4, Lymphocytes # (Auto) 1.0, Monocytes # (Auto) 0.4, Eosinophils # (Auto) 0.4H, Basophils # (Auto) 0.0, Immature Granulocyte # (Auto) 0.0, Prothrombin Time 14.7, INR Comment 1.1, Activated Partial Thromboplast Time 28, Sodium Level 139, Potassium Level 5.0, Chloride Level 108H, Carbon Dioxide Level 22, Anion Gap 9, Blood Urea Nitrogen 35H, Creatinine 1.16, Estimat Glomerular Filtration Rate 48, BUN/Creatinine Ratio 30, Glucose Level 154H, Calcium Level 9.1, Corrected Calcium 9.6, Total Bilirubin 0.4, Aspartate Amino Transf (AST/SGOT) 14, Alanine Aminotransferase (ALT/SGPT) 18, Alkaline Phosphatase 63, Total Protein 5.8L, Albumin 3.4 A/P-Cardiology Assessment/Admission Diagnosis GIB - management per Dr. Forbes CAD - Cardiac cath of 12-02-22: Left main coronary artery: Ok; Left anterior descending coronary artery: Long, up to 90% in ostial and prox LAD; Left circumflex coronary artery: Long, up to 80 in prox portion of a large OM, and 80% distal left circumflex; Right coronary artery: Dominant with up to 80 distal (but prox to PDA and PL). LVEDP 20 mmHg. LVEF 60% - referred to [facility] for eval for CABG DM II Hyperlipidemia Hypertension Non-Hodgkin's Lymphoma - following with Dr. Torres Discussion and Recomendations * Complex management due to parallel issues of multivessel CAD (needs ASA) and GIB (needs to hold ASA) * We recommend that ASA 81 mg daily be continued if possible and if not bleeding actively * Ok for endoscopy form cardiac standpoint. Risk reviewed with her * Monitor labs closely * I called Dr Forbes and spoke with him Clinical Quality Measures DVT/VTE Risk/Contraindication: Contraindications-Pharm: Other *list below* Other: MAXIM Alamo MD [facility] CCDS Dec 10, 2022 08:53
--- NOTE | 2022-12-10 09:08 | Consultation - Surgery ---
[facility] 12[facility]10[facility]22 0908: History of Present Illness History of Present Illness Patient Consulted On(erinn/time) 12/10/22 09:02 Date Seen by Provider: Dec 10, 2022 Time Seen by Provider: 09:04 History of Present Illness Consult requested by Dr. Doran for hematochezia. This is an 82y F with PMH of diverticulosis who presented to the ER overnight with BRBPR that started at 10pm last night. She had multiple BMs since that time with 5 since being in the ER. She has not had any pain or vomiting though she had some slight nausea last night relieved with antiemetics. She has had a colonoscopy in the past that revealed diverticulosis but has never had bleeding like this in the past. Today she reports she is more cold than normal. Her hemoglobin was 10.8 on 12/04 and down to Denies SOB, CP, fevers. Allergies and Home Medications Allergies Coded Allergies: Gadmlpq-OHM-NgP Reductase Inhibitor (Unverified Allergy, Mild, MUSCLE PAIN, 03/09/18) adhesive (Unverified Allergy, Unknown, 03/09/18) lisinopril (Unverified Adverse Reaction, Mild, COUGH, 03/09/18) Patient Home Medication List Home Medication List Reviewed: Yes Acetaminophen (Tylenol Extra Strength) 500 Mg Tablet, 1,000 MG PO Q8H PRN for PAIN-MILD (1-4), (Reported) Entered as Reported by: NURA DENNIS on 12/02/22 1210 Last Action: Held Alirocumab (Praluent Pen) 75 Mg/Ml Pen.injctr, 75 MG SQ [id number], (Reported) Entered as Reported by: NURA DENNIS on 06/23/22 1430 Last Action: Held Aspirin (Aspirin EC) 81 Mg Tablet.dr, 81 MG PO DAILY, (Reported) Entered as Reported by: CRISTIN JEFFREY on 12/10/22 1041 Last Action: Held Carboxymethylcellulos/Glycerin (Refresh Relieva 0.5-0.9% Drop) 0.5 %-0.9 % Drops, 1 DROP OS QID PRN for DRY EYES, (Reported) Entered as Reported by: NURA DENNIS on 12/02/22 1207 Last Action: Converted Carboxymethylcellulose Sodium (Refresh Tears) 0.5 % Drops, 1 DROP OD QID PRN for DRY EYES, (Reported) Entered as Reported by: NURA DENNIS on 06/23/22 1428 Last Action: Converted Carvedilol (Carvedilol) 12.5 Mg Tablet, 12.5 MG PO BID, (Reported) Entered as Reported by: CRISTIN JEFFREY on 12/10/22 1041 Last Action: Continued Cholecalciferol (Vitamin D3) (Vitamin D3) 25 Mcg (1000 Unit) Tablet, 50 MCG PO BID, (Reported) Entered as Reported by: NURA DENNIS on 12/02/22 120 Last Action: Continued Clobetasol Propionate (Clobetasol Propionate) 0.05 % Cream..g., 1 APPLIC TP BID, (Reported) Entered as Reported by: NURA DENNIS on 12/02/221206 Last Action: Converted Dextrose (Glucose) 4 Gram Tab.chew, 4 GM PO UD PRN for HYPOGLYCEMIA, (Reported) Entered as Reported by: NURA DENNIS on 06/23/22 143 Last Action: Held Diclofenac Sodium (Diclofenac Sodium) 1 % Gel..gram., 1 APPLIC TOP QID PRN for PAIN-BREAKTHROUGH, (Reported) Entered as Reported by: CRISTIN JEFFREY on 12/10/22 104 Last Action: Continued Furosemide (Furosemide) 20 Mg Tablet, 20 MG PO DAILY, (Reported) Entered as Reported by: NURA DENNIS on 12/02/221206 Last Action: Continued Hydrochlorothiazide (Hydrochlorothiazide) 25 Mg Tablet, 25 MG PO DAILY, (Reported) Entered as Reported by: CHRISTIANO LOPEZ on 03/09/18 143 Last Action: Held Insulin Glargine-Yfgn (Semglee (Yfgn) Pen) 100 Unit/Ml (3 Ml) Insuln.pen, 28 UNIT SQ BID, (Reported) Entered as Reported by: NURA DENNIS on 06/23/22 143 Last Action: Held Levothyroxine Sodium (Levothyroxine Sodium) 75 Mcg Tablet, 75 MCG PO DAILY, (Reported) Entered as Reported by: CHRISTIANO LOPEZ on 03/09/18 143 Last Action: Continued Loratadine (Loratadine) 10 Mg Tablet, 10 MG PO DAILY, (Reported) Entered as Reported by: CHRISTIANO LOPEZ on 7/10/18 1438 Last Action: Continued Nitroglycerin (Nitroglycerin) 0.4 Mg Tab.subl, 0.4 MG SL UD PRN for CHEST PAIN, (Reported) Entered as Reported by: CRISTIN JEFFREY on 12/10/22 1041 Last Action: Continued Omeprazole (Omeprazole) 20 Mg Tablet.dr, 20 MG PO DAILY, (Reported) Entered as Reported by: CHRISTIANO LOPEZ on 03/09/18 1438 Last Action: Converted Oxybutynin Chloride (Oxybutynin Chloride ER) 10 Mg Tab.er.24, 10 MG PO DAILY, (Reported) Entered as Reported by: CHRISTIANO LOPEZ on 10/30/16 1252 Last Action: Converted Pioglitazone HCl (Pioglitazone HCl) 45 Mg Tablet, 45 MG PO DAILY, (Reported) Entered as Reported by: NURA DENNIS on 06/23/22 1433 Last Action: Converted Polyethylene Glycol 3350 (Miralax) 17 Gram Powd.pack, 17 GM PO DAILY, (Reported) Entered as Reported by: CRISTIN JEFFREY on 12/10/22 1041 Last Action: Continued Potassium Chloride (Potassium Chloride) 10 Meq Capsule.er, 10 MEQ PO DAILY, (Reported) Entered as Reported by: CRISTIN JEFFREY on 12/10/22 104 Last Action: Converted Urea (Urea) 20 % Cream..g., 1 APPLIC TOP UD PRN for ITCHING, (Reported) Entered as Reported by: CRISTIN JEFFREY on 12/10/22 1045 Last Action: Converted Vit C/E/Zn/Coppr/Lutein/Zeaxan (Preservision Areds 2 Softgel) 250MG-90MG Capsule, 1 EACH PO BID, (Reported) Entered as Reported by: CHRISTIANO LOPEZ on 10/30/16 1252 Last Action: Converted Discontinued Medications Aspirin (Aspirin) 81 Mg Tab.chew, 81 MG PO DAILY Discontinued Reason: Duplicate Order Prescribed by: MAXIM WRIGHT on 12/02/22 1602 Last Action: Discontinued Carvedilol (Carvedilol) 12.5 Mg Tablet, 12.5 MG PO BID Discontinued Reason: Duplicate Order Prescribed by: MAXIM WRIGHT on 12/02/22 1605 Last Action: Discontinued Nitroglycerin (Nitroglycerin) 0.4 Mg Tab.subl, 0.4 MG SL PRN Discontinued Reason: Duplicate Order Prescribed by: MAXIM WRIGHT on 12/02/221604 Last Action: Discontinued Potassium Chloride (Potassium Chloride) 10 Meq Tab.er.prt, 10 MEQ PO DAILY Discontinued Reason: Duplicate Order Prescribed by: MAXIM WRIGHT on 12/02/221604 Last Action: Discontinued Past Xmmnjpz-Buxtli-Atuhpk Hx Patient Social History Smoking Status: Never a Smoker Former Smoker, Quit: Aug 31, 1967 Recent Hopitalizations: No Alcohol Use?: No Have you traveled recently?: No Immunizations Up To Date Tetanus Booster (TDap): Unknown Date of Pneumonia Vaccine: Jun 09, 2016 Date of Influenza Vaccine: Jun 09, 2016 Seasonal Allergies Seasonal Allergies: Yes (MILD) Surgeries History of Surgeries: Yes Surgeries: Abdominal (Colonoscopy), Adenoidectomy, Bladder Surgery, Cardiac (Heart cath without intervention), Hysterectomy, Oophorectomy, Tonsillectomy Respiratory History of Respiratory Disorde: No Cardiovascular History of Cardiac Disorders: Yes Cardiac Disorders: Coronary Artery Disease, High Cholesterol, Hypertension Neurological History of Neurological Disord: Yes Neurological Disorders: Stroke Reproductive System Hx Reproductive Disorders: No Sexually Transmitted Disease: No HIV/AIDS: No 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 Gastrointestinal History of Gastrointestinal Di: Yes Gastrointestinal Disorders: Gastroesophageal Reflux, Chronic Constipation, Diverticulosis Musculoskeletal History of Musculoskeletal Dis: Yes Musculoskeletal Disorders: Arthritis Endocrine History of Endocrine Disorders: Yes Endocrine Disorders: Diabetes, Insulin dep, Hypothyroidsim HEENT Loss of Vision: Bilateral Hearing Impairment: Denies Cancer History of Cancer: Yes Cancer: Skin, Lymphoma Integumentary History of Skin or Integumenta: Yes (Chronic shingles of the left face and scalp, multiple skin cancers removed) Blood Transfusions Adverse Reaction to a Blood Tr: No (N/A) Family Medical History Significant Family History: No Pertinent Family Hx Family Medial History: Cancer 09 SISTER Family history: Diabetes mellitus 03 MOTHER Stroke 03 MOTHER Review of Systems-General Constitutional: No chills, No dizziness; other (colder than normal for her) EENTM: No blurred vision, No double vision Respiratory: No cough, No short of breath Cardiovascular: No chest pain, No edema Gastrointestinal: No abdominal pain; other (hematochezia) Genitourinary: No decreased output, No dysuria : No Musculoskeletal: No back pain, No joint pain Skin: hx of skin cancer, other (pale) Psychiatric/Neurological: Denies Anxiety, Denies Depressed All Other Systems Reviewed Negative Unless Noted: Yes (Negative excepted noted.) Physical Exam-General Problems Physical Exam Vital Signs Vital Signs - First Documented 12/10/22 12/10/22 03:38 08:18 Temp 36.0 Pulse 94 Resp 20 B/P (MAP) 163/88 (113) Pulse Ox 98 O2 Delivery Room Air FiO2 21 Capillary Refill : Less Than 3 Seconds General Appearance: WD/WN, no apparent distress HEENT: PERRL/EOMI, pharynx normal Neck: non-tender, full range of motion Respiratory: chest non-tender, no respiratory distress, no accessory muscle use Cardiovascular: normal peripheral pulses, no edema Gastrointestinal: non tender, soft Rectal: deferred Back: normal inspection, no vertebral tenderness Extremities: non-tender, normal inspection, no pedal edema Neurologic/Psychiatric: no motor/sensory deficits, alert, normal mood/affect, oriented x 3 Skin: cool, pallor Lymphatic: no adenopathy Data Review Labs Laboratory Tests 12/10/22 04:00: White Blood Count 5.2, Red Blood Count 3.08L, Hemoglobin 8.9L, Hematocrit 28L, Mean Corpuscular Volume 92, Mean Corpuscular Hemoglobin 29, Mean Corpuscular Hemoglobin Concent 31L, Red Cell Distribution Width 14.6H, Platelet Count 151, Mean Platelet Volume 9.6, Immature Granulocyte % (Auto) 0, Neutrophils (%) (Auto) 65, Lymphocytes (%) (Auto) 19, Monocytes (%) (Auto) 8, Eosinophils (%) (Auto) 7, Basophils (%) (Auto) 0, Neutrophils # (Auto) 3.4, Lymphocytes # (Auto) 1.0, Monocytes # (Auto) 0.4, Eosinophils # (Auto) 0.4H, Basophils # (Auto) 0.0, Immature Granulocyte # (Auto) 0.0, Prothrombin Time 14.7, INR Comment 1.1, Activated Partial Thromboplast Time 28, Sodium Level 139, Potassium Level 5.0, Chloride Level 108H, Carbon Dioxide Level 22, Anion Gap 9, Blood Urea Nitrogen 35H, Creatinine 1.16, Estimat Glomerular Filtration Rate 48, BUN/Creatinine Ratio 30, Glucose Level 154H, Calcium Level 9.1, Corrected Calcium 9.6, Total Bilirubin 0.4, Aspartate Amino Transf (AST/SGOT) 14, Alanine Aminotransferase (ALT/SGPT) 18, Alkaline Phosphatase 63, Total Protein 5.8L, Albumin 3.4 Assessment/Plan Assessment/Plan Assessment/Plan GI bleed Diverticulosis Anemia NPO IV fluids, antiemetics Track and trend hemoglobin, transfuse as needed Repeat CBC at noon today Discussed likely diverticular bleed given hx of diverticulosis and no pain Continue conservative management Discussed need for colonoscopy outpatient after resolution of symptoms in near future Clinical Quality Measures DVT/VTE Risk/Contraindication: Contraindications-Pharm: Other *list below* Other: VARUN Hagan DO 12/10/221915: History of Present Illness History of Present Illness History of Present Illness 82 year old female that began having bright red blood per rectum last night starting around 10 pm. Having multiple bowel movements and continued today as well. While in the ER early this morning had about 5 more. Patient states it seemed to have slown down a little currently. She has no abomdinal pain. She states years ago had a colonoscopy and told has diverticulosis. Hgb down to 8.9. Had some nausea, no emesis. Denies fever sweats chills shortness of breath or chest pain. Allergies and Home Medications Allergies Coded Allergies: Wvmrtrz-AFG-YgX Reductase Inhibitor (Unverified Allergy, Mild, MUSCLE PAIN, 03/09/18) adhesive (Unverified Allergy, Unknown, 03/09/18) lisinopril (Unverified Adverse Reaction, Mild, COUGH, 03/09/18) Patient Home Medication List Home Medication List Reviewed: Yes Acetaminophen (Tylenol Extra Strength) 500 Mg Tablet, 1,000 MG PO Q8H PRN for PAIN-MILD (1-4), (Reported) Entered as Reported by: NURA DENNIS on 12/02/22 1210 Last Action: Held Alirocumab (Praluent Pen) 75 Mg/Ml Pen.injctr, 75 MG SQ [id number], (Reported) Entered as Reported by: NURA DENNIS on 06/23/22 1430 Last Action: Held Aspirin (Aspirin EC) 81 Mg Tablet.dr, 81 MG PO DAILY, (Reported) Entered as Reported by: CRISTIN JEFFREY on 12/10/22 1041 Last Action: Held Carboxymethylcellulos/Glycerin (Refresh Relieva 0.5-0.9% Drop) 0.5 %-0.9 % Drops, 1 DROP OS QID PRN for DRY EYES, (Reported) Entered as Reported by: NURA DENNIS on 12/02/221206 Last Action: Converted Carboxymethylcellulose Sodium (Refresh Tears) 0.5 % Drops, 1 DROP OD QID PRN for DRY EYES, (Reported) Entered as Reported by: NURA DENNIS on 06/23/22 1428 Last Action: Converted Carvedilol (Carvedilol) 12.5 Mg Tablet, 12.5 MG PO BID, (Reported) Entered as Reported by: CRISTIN JEFFREY on 12/10/22 104 Last Action: Continued Cholecalciferol (Vitamin D3) (Vitamin D3) 25 Mcg (1000 Unit) Tablet, 50 MCG PO BID, (Reported) Entered as Reported by: NURA DENNIS on 12/02/221206 Last Action: Continued Clobetasol Propionate (Clobetasol Propionate) 0.05 % Cream..g., 1 APPLIC TP BID, (Reported) Entered as Reported by: NURA DENNIS on 12/02/221206 Last Action: Converted Dextrose (Glucose) 4 Gram Tab.chew, 4 GM PO UD PRN for HYPOGLYCEMIA, (Reported) Entered as Reported by: NURA DENNIS on 06/23/22 143 Last Action: Held Diclofenac Sodium (Diclofenac Sodium) 1 % Gel..gram., 1 APPLIC TOP QID PRN for PAIN-BREAKTHROUGH, (Reported) Entered as Reported by: CRISTIN JEFFREY on 12/10/22 104 Last Action: Continued Furosemide (Furosemide) 20 Mg Tablet, 20 MG PO DAILY, (Reported) Entered as Reported by: NURA DENNIS on 12/02/221206 Last Action: Continued Hydrochlorothiazide (Hydrochlorothiazide) 25 Mg Tablet, 25 MG PO DAILY, (R eported) Entered as Reported by: CHRISTIANO LOPEZ on 03/09/18 1438 Last Action: Held Insulin Glargine-Yfgn (Semglee (Yfgn) Pen) 100 Unit/Ml (3 Ml) Insuln.pen, 28 UNIT SQ BID, (Reported) Entered as Reported by: NURA DENNIS on 06/23/22 1432 Last Action: Held Levothyroxine Sodium (Levothyroxine Sodium) 75 Mcg Tablet, 75 MCG PO DAILY, (Reported) Entered as Reported by: CHRISTIANO LOPEZ on 03/09/18 1438 Last Action: Continued Loratadine (Loratadine) 10 Mg Tablet, 10 MG PO DAILY, (Reported) Entered as Reported by: CHRISTIANO LOPEZ on 03/09/18 1438 Last Action: Continued Nitroglycerin (Nitroglycerin) 0.4 Mg Tab.subl, 0.4 MG SL UD PRN for CHEST PAIN, (Reported) Entered as Reported by: CRITSIN JEFFREY on 12/10/22 104 Last Action: Continued Omeprazole (Omeprazole) 20 Mg Tablet.dr, 20 MG PO DAILY, (Reported) Entered as Reported by: CHRISTIANO LOPEZ on 03/09/18 143 Last Action: Converted Oxybutynin Chloride (Oxybutynin Chloride ER) 10 Mg Tab.er.24, 10 MG PO DAILY, (Reported) Entered as Reported by: CHRISTIANO LOPEZ on 10/30/16 1252 Last Action: Converted Pioglitazone HCl (Pioglitazone HCl) 45 Mg Tablet, 45 MG PO DAILY, (Reported) Entered as Reported by: NURA DENNIS on 06/23/22 1433 Last Action: Converted Polyethylene Glycol 3350 (Miralax) 17 Gram Powd.pack, 17 GM PO DAILY, (Reported) Entered as Reported by: CRISTIN JEFFREY on 12/10/22 1041 Last Action: Continued Potassium Chloride (Potassium Chloride) 10 Meq Capsule.er, 10 MEQ PO DAILY, (Reported) Entered as Reported by: CRISTIN JEFFREY on 12/10/22 1041 Last Action: Converted Urea (Urea) 20 % Cream..g., 1 APPLIC TOP UD PRN for ITCHING, (Reported) Entered as Reported by: CRISTIN JEFFREY on 12/10/22 1045 Last Action: Converted Vit C/E/Zn/Coppr/Lutein/Zeaxan (Preservision Areds 2 Softgel) 250MG-90MG Capsule, 1 EACH PO BID, (Reported) Entered as Reported by: CHRISTIANO LOPEZ on 10/30/16 1252 Last Action: Converted Discontinued Medications Aspirin (Aspirin) 81 Mg Tab.chew, 81 MG PO DAILY Discontinued Reason: Duplicate Order Prescribed by: MAXIM WRIGHT on 12/02/221601 Last Action: Discontinued Carvedilol (Carvedilol) 12.5 Mg Tablet, 12.5 MG PO BID Discontinued Reason: Duplicate Order Prescribed by: MAXIM WRIGHT on 12/02/221604 Last Action: Discontinued Nitroglycerin (Nitroglycerin) 0.4 Mg Tab.subl, 0.4 MG SL PRN Discontinued Reason: Duplicate Order Prescribed by: MAXIM WRIGHT on 12/02/221604 Last Action: Discontinued Potassium Chloride (Potassium Chloride) 10 Meq Tab.er.prt, 10 MEQ PO DAILY Discontinued Reason: Duplicate Order Prescribed by: MAXIM WRIGHT on 12/02/221604 Last Action: Discontinued Past Rnaehng-Hoabjt-Qdytbt Hx Surgeries Surgeries: Abdominal (Colonoscopy), Adenoidectomy, Bladder Surgery, Cardiac (Heart cath without intervention), Hysterectomy, Oophorectomy, Tonsillectomy Respiratory History of Respiratory Disorde: No Cardiovascular History of Cardiac Disorders: No Genitourinary History of Genitourinary Disor: No Gastrointestinal Gastrointestinal Disorders: Diverticulosis Musculoskeletal History of Musculoskeletal Dis: No Cancer History of Cancer: Yes Cancer: Skin Psychosocial History of Psychiatric Problem: No Integumentary History of Skin or Integumenta: Yes (Chronic shingles of the left face and scalp, multiple skin cancers removed) Reviewed Nursing Assessment Reviewed/Agree w Nursing PMH: Yes Family Medical History Family Medial History: Cancer 09 SISTER Family history: Diabetes mellitus 03 MOTHER Stroke 03 MOTHER Review of Systems-General Constitutional: No chills, No dizziness EENTM: No blurred vision, No double vision Respiratory: No cough, No short of breath Cardiovascular: No edema Gastrointestinal: No abdominal pain; nausea; No vomiting; other (hematochezia) Genitourinary: No decreased output, No dysuria Musculoskeletal: No back pain, No joint pain Skin: change in color, hx of skin cancer, other (pale) Psychiatric/Neurological: Denies Anxiety, Denies Depressed, Denies Emotional Problems All Other Systems Reviewed Negative Unless Noted: Yes (Negative excepted noted.) Physical Exam-General Problems Physical Exam General Appearance: WD/WN, no apparent distress HEENT: PERRL/EOMI, normal ENT inspection Neck: non-tender, full range of motion Respiratory: chest non-tender, no respiratory distress, no accessory muscle use Cardiovascular: normal peripheral pulses, no edema Gastrointestinal: non tender, soft Rectal: deferred Back: normal inspection, no vertebral tenderness Extremities: non-tender, normal inspection, no pedal edema Neurologic/Psychiatric: no motor/sensory deficits, alert, normal mood/affect, oriented x 3 Skin: cool, pallor Lymphatic: no adenopathy Assessment/Plan Assessment/Plan Assessment/Plan GI bleed-likely lower Diverticulosis Anemia NPO IV fluids, antiemetics Track and trend hemoglobin, transfuse as needed Repeat CBC at noon today Discussed likely diverticular bleed given hx of diverticulosis and no pain Continue conservative management Discussed need for colonoscopy outpatient after resolution of symptoms in near future unless continues to drop and need to do for futher evaluation Supervisory-Addendum Brief Verification & Attestation Participated in pt care: history, MDM, physical Personally performed: exam, history, MDM, supervision of care Care discussed with: Medical Student Procedures: n/a Results interpretation: Verified all documentation Verification and Attestation of Medical Student E/M Service A medical student performed and documented this service in my presence. I reviewed and verified all information documented by the medical student and made modifications to such information, when appropriate. I personally performed the physical exam and medical decision making. Varun Betancourt, Dec 10, 2022,19:20 MELISA MONAHAN Dec 10, 2022 09:08 VARUN BETANCOURT DO Dec 10, 2022 19:16
[2022-12-10] MEDS: PANTOPRAZOLE 40 MG (PROTONIX) VIAL IV SCH (09:26)
[2022-12-10] MEDS: D5 1/2 NS W/KCL 10 MEQ/L 1,000 ML IV SCH ×3 (09:34→20:53)
[2022-12-10] MEDS: DOCUSATE SODIUM 100 MG (COLACE) CAP PO SCH ×2 (09:35→20:33)
[2022-12-10] MEDS: SENNOSIDES 8.6 MG (SENOKOT) TAB PO SCH ×2 (09:35→20:33)
[2022-12-10] MEDS ORDERED: ASPI-1238 PO (10:41)
[2022-12-10] MEDS ORDERED: NITR0.4T39 SL (10:41)
[2022-12-10] MEDS ORDERED: POLY17PO6 PO (10:41)
[2022-12-10] MEDS ORDERED: CARV12.53 PO (10:41)
[2022-12-10] MEDS ORDERED: DICL100G13 TOP (10:41)
[2022-12-10] MEDS ORDERED: POTA10CA44 PO (10:41)
[2022-12-10] MEDS ORDERED: UREA85CR23 TOP (10:45)
[2022-12-10 12:46] LABS: BASOPHILS % (AUTO) 0 % (0-10); EOSINOPHILS # (AUTO) 0.2 10^3/uL (0.0-0.3); EOSINOPHILS % (AUTO) 4 % (0-10); HEMATOCRIT 23 % (35-52); LYMPHOCYTES # (AUTO) 0.8 10^3/uL (1.0-4.0); LYMPHOCYTES % (AUTO) 17 % (12-44); MEAN CORPUSCULAR HEMOGLOBIN 28 pg (25-34); MEAN CORPUSCULAR HGB CONC 31 g/dL (32-36); MEAN CORPUSCULAR VOLUME 91 fL (80-99); MEAN PLATELET VOLUME 9.8 fL (9.0-12.2); MONOCYTES # (AUTO) 0.3 10^3/uL (0.0-1.0); MONOCYTES % (AUTO) 7 % (0-12); NEUTROPHILS # (AUTO) 3.3 10^3/uL (1.8-7.8); NEUTROPHILS % (AUTO) 72 % (42-75); PLATELET COUNT 142 10^3/uL (130-400); WHITE BLOOD COUNT 4.7 10^3/uL (4.3-11.0)
[2022-12-10] MEDS ORDERED: NS IV 500 ML 500 ML IV SCH (16:00)
[2022-12-10] MEDS ORDERED: NON-FORMULARY MEDICATION 1 EA EA (Carboxymethylcellulose Sodium (Refresh Tears) 1 DROP) OD PRN (16:00)
[2022-12-10] MEDS ORDERED: UREA TOP PRN (16:00)
[2022-12-10] MEDS ORDERED: [UNRECOGNIZED DRUG - OTHER] OS PRN (16:00)
[2022-12-10] MEDS ORDERED: GLYCERIN OS PRN (16:00)
[2022-12-10] MEDS ORDERED: CARBOXYMETHYLCELLULOS OS PRN (16:00)
[2022-12-10] MEDS ORDERED: DICLOFENAC 1% GEL 100 GM (VOLTAREN) TUBE TOP PRN (16:00)
[2022-12-10] MEDS ORDERED: ARTIFICAL TEARS 0.4 ML UNIT DOSE (REFRESH PLUS) OS PRN (16:15)
[2022-12-10] MEDS ORDERED: ARTIFICAL TEARS 0.4 ML UNIT DOSE (REFRESH PLUS) OU PRN (16:15)
[2022-12-10] MEDS: VITAMIN D3 25 MCG (1,000 UNITS) TABLET PO SCH (20:35)
[2022-12-10] MEDS: BETAMETHASONE DIPRO (AUGMENTED) 0.05% CREAM 15 GM TOP SCH (20:36)
[2022-12-10] MEDS ORDERED: OXYBUTYNIN (DITROPAN) 5 MG TAB ONE (20:48)
[2022-12-10] MEDS: OXYBUTYNIN (DITROPAN) 5 MG TAB PO SCH (20:49)
[2022-12-10] MEDS ORDERED: NON-FORMULARY MEDICATION 1 EA EA (Clobetasol Propionate 1 APPLIC) TP SCH (21:00)
[2022-12-11] VITALS (9 sets, daily range): BP systolic 110–148; BP diastolic 53–65
[2022-12-11] MEDS: LEVOTHYROXINE 75 MCG (LEVOTHROID) TABLET PO SCH (05:19)
[2022-12-11] MEDS: NITROGLYCERIN 0.4 MG SL TABS BTL 25'S SL PRN (05:27)
[2022-12-11 06:42] LABS: EOSINOPHILS # (AUTO) 0.2 10^3/uL (0.0-0.3); HEMOGLOBIN 7.1 g/dL (11.5-16.0); MEAN PLATELET VOLUME 9.7 fL (9.0-12.2)
[2022-12-11] MEDS: PIOGLITAZONE 30MG (ACTOS) TAB PO SCH (06:43)
[2022-12-11 06:44] LABS: BASOPHILS % (AUTO) 0 % (0-10); EOSINOPHILS % (AUTO) 4 % (0-10); HEMATOCRIT 22 % (35-52); LYMPHOCYTES # (AUTO) 0.8 10^3/uL (1.0-4.0); LYMPHOCYTES % (AUTO) 17 % (12-44); MEAN CORPUSCULAR HEMOGLOBIN 28 pg (25-34); MEAN CORPUSCULAR HGB CONC 32 g/dL (32-36); MEAN CORPUSCULAR VOLUME 89 fL (80-99); MONOCYTES # (AUTO) 0.3 10^3/uL (0.0-1.0); MONOCYTES % (AUTO) 7 % (0-12); NEUTROPHILS # (AUTO) 3.2 10^3/uL (1.8-7.8); NEUTROPHILS % (AUTO) 71 % (42-75); PLATELET COUNT 127 10^3/uL (130-400); WHITE BLOOD COUNT 4.5 10^3/uL (4.3-11.0)
[2022-12-11 07:08] LABS: ALBUMIN 2.9 GM/DL (3.2-4.5); POTASSIUM 4.4 MMOL/L (3.6-5.0)
[2022-12-11 07:09] LABS: CALCIUM 8.6 MG/DL (8.5-10.1)
[2022-12-11 07:10] LABS: TOTAL PROTEIN 4.9 GM/DL (6.4-8.2)
[2022-12-11 07:12] LABS: BILIRUBIN,TOTAL 0.4 MG/DL (0.1-1.0)
[2022-12-11 07:14] LABS: CREATININE SERUM 1.05 MG/DL (0.60-1.30)
[2022-12-11] MEDS ORDERED: NS IV 500 ML 500 ML IV SCH (07:15)
--- NOTE | 2022-12-11 08:31 | Progress Note ---
RAFAEL POZO 12/11/22 0831: Subjective Date Seen by a Provider: Dec 11, 2022 Time Seen by a Provider: 07:45 Subjective/Events-last exam Patient was awake sitting in bed when seen this morning. She received 1 unit pRBC yesterday afternoon after having a Hgb of 7.0 with noon bloodwork. She has not had any rectal bleeding or BM's since being seen yesterday. Her Hgb this morning is 7.1. She reports having continued Chest pain/tightness. She took a sublingual Nitro this morning and reports a resolution in symptoms. This is unchanged from baseline and she sees Dr. Sharma who has not been by yet today. Her diet was advanced to clear liquids yesterday and Surgery is assessing the need for scopes. She Denies LH, Palpitations, SOB, Dyspnea w/ exertion, abd pain, N/V/D, numbness/weakness of extremities. Of note, when doing my exam today the patient reports ongoing bed bugs at home. Review of Systems General: No Chills; Fatigue HEENT: No Head Aches Pulmonary: No Dyspnea, No Cough Cardiovascular: Chest Pain; No: Palpitations Gastrointestinal: No: Nausea, Vomiting, Abdominal Pain, Diarrhea, Hematochezia (None since yesterday morning) Genitourinary: No Dysuria, No Hematuria Neurological: No: Weakness, Numbness Objective Exam Last Set of Vital Signs Vital Signs Date Time Temp Pulse Resp B/P (MAP) Pulse Ox O2 Delivery O2 Flow Rate FiO2 12/11/22 08:12 36.8 77 19 117/58 (77) 97 Room Air 12/10/22 08:18 21 Capillary Refill : Less Than 3 Seconds I&O Intake and Output 12/11/22 00:00 Intake Total 1960 ml Output Total 1300 ml Balance 660 ml Intake Oral 960 ml IV Total 1000 ml Output Urine Total 1300 ml Daily Weight Change No General: Alert, Oriented X3, No Acute Distress HEENT: Atraumatic, PERRLA Neck: Supple, No Thyromegaly Lungs: Clear to Auscultation, Normal Air Movement Heart: Regular Rate, No Murmurs Abdomen: Normal Bowel Sounds, Soft, No Tenderness Extremities: No Clubbing, No Cyanosis, No Edema, Other (Has some non-blanching petechiae on LE.) Skin: No Breakdown, No Significant Lesion Neuro: Normal Speech, Normal Tone, Sensation Intact Psych/Mental Status: Mental Status NL Results Lab Laboratory Tests 12/10/22 12:00: White Blood Count 4.7, Red Blood Count 2.48L, Hemoglobin 7.0L, Hematocrit 23L, Mean Corpuscular Volume 91, Mean Corpuscular Hemoglobin 28, Mean Corpuscular Hemoglobin Concent 31L, Red Cell Distribution Width 14.6H, Platelet Count 142, Mean Platelet Volume 9.8, Immature Granulocyte % (Auto) 0, Neutrophils (%) (Auto) 72, Lymphocytes (%) (Auto) 17, Monocytes (%) (Auto) 7, Eosinophils (%) (Auto) 4, Basophils (%) (Auto) 0, Neutrophils # (Auto) 3.3, Lymphocytes # (Auto) 0.8L, Monocytes # (Auto) 0.3, Eosinophils # (Auto) 0.2, Basophils # (Auto) 0.0, Immature Granulocyte # (Auto) 0.0, Percent Immature Platelet Fraction 1.3 12/11/22 06:35: White Blood Count 4.5, Red Blood Count 2.51L, Hemoglobin 7.1L, Hematocrit 22L, Mean Corpuscular Volume 89, Mean Corpuscular Hemoglobin 28, Mean Corpuscular Hemoglobin Concent 32, Red Cell Distribution Width 16.8H, Platelet Count 127L, Mean Platelet Volume 9.7, Immature Granulocyte % (Auto) 0, Neutrophils (%) (Auto) 71, Lymphocytes (%) (Auto) 17, Monocytes (%) (Auto) 7, Eosinophils (%) (Auto) 4, Basophils (%) (Auto) 0, Neutrophils # (Auto) 3.2, Lymphocytes # (Auto) 0.8L, Monocytes # (Auto) 0.3, Eosinophils # (Auto) 0.2, Basophils # (Auto) 0.0, Immature Granulocyte # (Auto) 0.0, Percent Immature Platelet Fraction 1.6, Sodium Level 137, Potassium Level 4.4, Chloride Level 108H, Carbon Dioxide Level 21, Anion Gap 8, Blood Urea Nitrogen 23H, Creatinine 1.05, Estimat Glomerular Filtration Rate 54, BUN/Creatinine Ratio 22, Glucose Level 201H, Calcium Level 8.6, Corrected Calcium 9.5, Total Bilirubin 0.4, Aspartate Amino Transf (AST/SGOT) 19, Alanine Aminotransferase (ALT/SGPT) 15, Alkaline Phosphatase 39L, Total Protein 4.9L, Albumin 2.9L Assessment/Plan Assessment/Plan Assess & Plan/Chief Complaint Acute Rectal Bleeding -upper vs. lower GI bleed. 2nd to diverticulosis vs. internal hemorrhoid vs mass vs upper GI. -No history of Blood thinner use and normal coag study. -Clear liquid diet. Hold ASA until bleeding stops. Zofran for nausea. Seeing Surgery to assess need for scope. Anemia -(12/10) Hgb 8.9 today down from 10.8 on 12/04. Will monitor and replace with pRBC for Hgb < 8.0 given CAD history. -(12/11) Patient had repeat CBC yesterday afternoon which showed Hgb 7.0. She was given 1 unit pRBC yesterday yesterday. Hgb this morning 7.1. Insulin Dependent Diabetes -Insulin sliding scale HX CAD -Heart Cath 12/02/[address] Sharma -> Multi-vessel disease. Refferal placed to Dr. Benjamin at [place] to discuss CABG. LVEF of 60% at that time. -Reports seeing a Doctor at [place] 12/09 and was told she isn't a candidate for CABG due to small vessel size and that they would try medication for a year instead. -Praluent Injectable for HLD. Allergic to statins. -Cardiology Consulted with recommendations appreciated Angina -Ongoing in nature. Part of what initiated the work-up above. Management per cardiology. HLD HTN -Will monitor BP and restart home meds as able. Hypothyroidism -Continue home medications Diet: NPO DVT proph: SCDs Clinical Quality Measures Admission Status Admission Dx Acute Rectal Bleeding -upper vs. lower GI bleed. 2nd to diverticulosis vs. internal hemorrhoid vs mass vs upper GI. -No history of Blood thinner use and normal coag study. -NPO. Hold ASA until bleeding stops. Zofran for nausea. Consult Surg Anemia -Hgb 8.9 today down from 10.8 on 12/04. Will monitor and replace with pRBC for Hgb < 8.0 given CAD history. Insulin Dependent Diabetes -Insulin sliding scale HX CAD -Heart Cath 12/02/[address] Sharma -> Multi-vessel disease. Refferal placed to Dr. Benjamin at [place] [facility] to discuss CABG. LVEF of 60% at that time. -Praluent Injectable for HLD. Allergic to statins. -Cardiology Consulted with recommendations appreciated HLD HTN -Will monitor BP and restart home meds as able. Hypothyroidism -Continue home medications Diet: NPO DVT proph: Lovenox & SCDs DVT/VTE Risk/Contraindication: Contraindications-Pharm: Other *list below* Other: BREANA Fritz DO 12/12/22 0449: Supervisory-Addendum Brief Verification & Attestation Participated in pt care: history, MDM, physical Personally performed: exam, history, MDM, supervision of care Care discussed with: Medical Student Procedures: n/a Results interpretation: Verified all documentation Verification and Attestation of Medical Student E/M Service A medical student performed and documented this service in my presence. I reviewed and verified all information documented by the medical student and made modifications to such information, when appropriate. I personally performed the physical exam and medical decision making. Breana Blount, Dec 12, 2022,04:49 RAFAEL POZO Dec 11, 2022 08:31 BREANA BLOUNT DO Dec 12, 2022 04:49
[2022-12-11] MEDS: VITAMIN D3 25 MCG (1,000 UNITS) TABLET PO SCH ×2 (08:57→19:58)
[2022-12-11] MEDS: FUROSEMIDE 20 MG (LASIX) TAB PO SCH (08:57)
[2022-12-11] MEDS: polyethylene glycoL POWDER 17 GM (MIRALAX) PACK PO SCH (08:58)
[2022-12-11] MEDS: PANTOPRAZOLE 40 MG (PROTONIX) VIAL IV SCH (08:58)
[2022-12-11] MEDS: LORATADINE (CLARITIN) 10 MG TAB PO SCH (08:58)
[2022-12-11] MEDS: OXYBUTYNIN (DITROPAN) 5 MG TAB PO SCH ×2 (08:58→19:59)
[2022-12-11] MEDS: KCL 10 MEQ TAB (MICRO K) PO SCH (08:58)
[2022-12-11] MEDS: SENNOSIDES 8.6 MG (SENOKOT) TAB PO SCH ×2 (08:58→19:59)
[2022-12-11] MEDS: DOCUSATE SODIUM 100 MG (COLACE) CAP PO SCH ×2 (08:58→19:59)
--- NOTE | 2022-12-11 08:59 | Progress Note - Surgery ---
ISRAEL RONQUILLO 12/11/22 0859: Subjective Date Seen by a Provider: Dec 11, 2022 Time Seen by a Provider: 07:30 Subjective/Events-last exam Patient says she is feeling fine today. She denies any pain. She has not had a BM since she has been admitted. She was transfused 1 unit of blood yesterday w hich only raised her Hgb from 7.0 to 7.1. Review of Systems General: No Chills, No Night Sweats HEENT: No Head Aches, No Dysphasia, No Sore Throat Pulmonary: No Dyspnea, No Cough Cardiovascular: No: Chest Pain, Palpitations, Lt Headedness Gastrointestinal: No: Nausea, Vomiting, Abdominal Pain Genitourinary: No Dysuria, No Frequency Musculoskeletal: No: neck pain, back pain Neurological: No: Weakness, Numbness, Confusion Objective Exam Vital Signs Date Time Temp Pulse Resp B/P (MAP) Pulse Ox O2 Delivery O2 Flow Rate FiO2 12/11/22 08:12 36.8 77 19 117/58 (77) 97 Room Air 12/11/22 07:00 81 12/11/22 03:36 36.7 82 18 132/62 (85) 96 Room Air 12/11/22 01:00 80 12/10/22 23:12 36.9 80 18 121/60 (80) 95 Room Air 12/10/22 19:13 36.4 87 18 118/77 (91) 96 Room Air 12/10/22 19:09 36.4 88 18 118/77 96 Room Air 12/10/22 19:00 90 12/10/22 16:57 36.4 83 18 127/63 95 Room Air 12/10/22 16:35 36.5 83 18 144/72 96 Room Air 12/10/22 16:16 36.5 83 18 144/72 (96) 96 Room Air 12/10/22 12:59 78 12/10/22 12:00 36.1 83 18 126/66 (86) 99 Room Air 12/10/22 09:08 81 I & O 12/11/22 07:00 Intake Total 2330 ml Output Total 2000 ml Balance 330 ml Capillary Refill : Less Than 3 Seconds General Appearance: No Apparent Distress, Chronically ill, Obese HEENT: PERRL/EOMI, Moist Mucous Membranes Neck: Non Tender, Supple Respiratory: Lungs Clear, Normal Breath Sounds Cardiovascular: Regular Rate, Rhythm, No Murmur Gastrointestinal: non tender, soft Extremity: Normal Capillary Refill, Calf Tenderness (bilaterally tender, pain only occurred when I pressed very hard, there is no obvious calf size discrepency, no erythema), Pedal Edema (3+) Neurologic/Psychiatric: Alert, Oriented x3, No Motor/Sensory Deficits, Normal Mood/Affect Skin: Normal Color, Warm/Dry Lymphatic: No Adenopathy Results Lab Laboratory Tests 12/10/22 12:00: White Blood Count 4.7, Red Blood Count 2.48L, Hemoglobin 7.0L, Hematocrit 23L, Mean Corpuscular Volume 91, Mean Corpuscular Hemoglobin 28, Mean Corpuscular Hemoglobin Concent 31L, Red Cell Distribution Width 14.6H, Platelet Count 142, Mean Platelet Volume 9.8, Immature Granulocyte % (Auto) 0, Neutrophils (%) (Auto) 72, Lymphocytes (%) (Auto) 17, Monocytes (%) (Auto) 7, Eosinophils (%) (Auto) 4, Basophils (%) (Auto) 0, Neutrophils # (Auto) 3.3, Lymphocytes # (Auto) 0.8L, Monocytes # (Auto) 0.3, Eosinophils # (Auto) 0.2, Basophils # (Auto) 0.0, Immature Granulocyte # (Auto) 0.0, Percent Immature Platelet Fraction 1.3 12/11/22 06:35: White Blood Count 4.5, Red Blood Count 2.51L, Hemoglobin 7.1L, Hematocrit 22L, Mean Corpuscular Volume 89, Mean Corpuscular Hemoglobin 28, Mean Corpuscular Hemoglobin Concent 32, Red Cell Distribution Width 16.8H, Platelet Count 127L, Mean Platelet Volume 9.7, Immature Granulocyte % (Auto) 0, Neutrophils (%) (Auto) 71, Lymphocytes (%) (Auto) 17, Monocytes (%) (Auto) 7, Eosinophils (%) ( Auto) 4, Basophils (%) (Auto) 0, Neutrophils # (Auto) 3.2, Lymphocytes # (Auto) 0.8L, Monocytes # (Auto) 0.3, Eosinophils # (Auto) 0.2, Basophils # (Auto) 0.0, Immature Granulocyte # (Auto) 0.0, Percent Immature Platelet Fraction 1.6, Sodium Level 137, Potassium Level 4.4, Chloride Level 108H, Carbon Dioxide Level 21, Anion Gap 8, Blood Urea Nitrogen 23H, Creatinine 1.05, Estimat Glomerular Filtration Rate 54, BUN/Creatinine Ratio 22, Glucose Level 201H, Calcium Level 8.6, Corrected Calcium 9.5, Total Bilirubin 0.4, Aspartate Amino Transf (AST/SGOT) 19, Alanine Aminotransferase (ALT/SGPT) 15, Alkaline Phosphatase 39L, Total Protein 4.9L, Albumin 2.9L Assessment/Plan Assessment/Plan Assessment/Plan GI bleed-likely lower Diverticulosis Anemia NPO IV fluids Antiemetics as needed Track and trend hemoglobin, transfuse as needed- pt. received one unit of RBC yesterday, hgb went from 7.0 to 7.1 Transfuse 1 more unit of RBC today, recheck hgb after Discussed likely diverticular bleed given hx of diverticulosis and no pain Continue conservative management Discussed need for colonoscopy, due to her Hgb not rising after a unit of blood was given, we will likely do on this admission as opposed to outpatient, started colon prep today Clinical Quality Measures DVT/VTE Risk/Contraindication: Contraindications-Pharm: Other *list below* Other: VARUN Hagan DO 12/11/22 0940: Subjective Subjective/Events-last exam Feeling okay. Got 1 unit prbc yesterday. Hgb went up 0.1. No abdominal pain. No bm since admitted. Denies n/v fever sweats chills shortness of breath or chest pain. Objective Exam General Appearance: No Apparent Distress, Chronically ill, Obese HEENT: Moist Mucous Membranes, Other (rash left forehead (shingles)) Neck: Non Tender, Supple Respiratory: Chest Non Tender, No Accessory Muscle Use, No Respiratory Distress Cardiovascular: Regular Rate, Rhythm, No JVD Gastrointestinal: non tender, soft Extremity: Normal Capillary Refill, Pedal Edema (3+) Neurologic/Psychiatric: Alert, Oriented x3, No Motor/Sensory Deficits, Normal Mood/Affect Skin: Warm/Dry, Pallor Lymphatic: No Adenopathy Assessment/Plan Assessment/Plan Assessment/Plan GI bleed-likely lower Diverticulosis Anemia NPO IV fluids Antiemetics as needed Track and trend hemoglobin, transfuse as needed- pt. received one unit of RBC yesterday, hgb went from 7.0 to 7.1 Transfuse 1 more unit of RBC today, Discussed likely diverticular bleed given hx of diverticulosis and no pain Continue conservative management Discussed need for egd/ colonoscopy to further evaluate, start colon prep today consent npo after midnight Supervisory-Addendum Brief Verification & Attestation Participated in pt care: history, MDM, physical Personally performed: exam, history, MDM, supervision of care Care discussed with: Medical Student Procedures: n/a Results interpretation: Verified all documentation Verification and Attestation of Medical Student E/M Service A medical student performed and documented this service in my presence. I reviewed and verified all information documented by the medical student and made modifications to such information, when appropriate. I personally performed the physical exam and medical decision making. Varun Forbes, Dec 11, 2022,09:40 ISRAEL RONQUILLO Dec 11, 2022 08:59 VARUN FORBES DO Dec 11, 2022 09:40
[2022-12-11] MEDS ORDERED: GOLYTELY POWDER 4000 ML BTL PO NR (09:00)
[2022-12-11] MEDS: BETAMETHASONE DIPRO (AUGMENTED) 0.05% CREAM 15 GM TOP SCH ×2 (09:00→19:59)
[2022-12-11] MEDS ORDERED: NON-FORMULARY MEDICATION 1 EA EA (Potassium Chloride 10 MEQ) PO SCH (09:00)
[2022-12-11] MEDS ORDERED: NON-FORMULARY MEDICATION 1 EA EA (Pioglitazone HCl 45 MG) PO SCH (09:00)
[2022-12-11] MEDS ORDERED: NON-FORMULARY MEDICATION 1 EA EA (Oxybutynin Chloride (Oxybutynin Chloride ER) 10 MG) PO SCH (09:00)
--- NOTE | 2022-12-11 09:41 | Progress Note - Cardiology ---
Cardiology SOAP Progress Note Subjective: Sitting up in bed States she has had no further blood in her stools No c/o CP or SOB or palpitations Objective: I&O/Vital Signs 12/11/22 12/12/22 12/12/22 12/12/22 23:03 01:00 04:39 07:00 Temp 36.0 37.5 Pulse 78 80 80 82 Resp 20 20 B/P (MAP) 123/58 (79) 124/60 (81) Pulse Ox 96 96 O2 Delivery Room Air Room Air 12/12/22 07:58 Temp 36.4 Pulse 79 Resp 18 B/P (MAP) 125/61 (82) Pulse Ox 97 O2 Delivery Room Air 12/12/22 00:00 Intake Total 6750 ml Balance 6750 ml Weight (Pounds): 213 Weight (Ounces): 0.0 Weight (Calculated Kilograms): 96.052182 Constitutional: AAO x 3, well-developed, well-nourished Respiratory: No accessory muscle use; chest expansion is symmetric, chest is bilaterally symmetric, other (good, bilateral air entry) Cardiovascular: regular rate-rhythm, S1 and S2, systolic murmur Gastrointestional: No tender; soft; No guarding, No rebound; audible bowel sounds Extremities: swelling (mild, bilat leg swelling); No clubbing, No cyanosis Neurologic/Psychiatric: oriented x 3, other (moves all limbs equally) Skin: rash (mild rash and swelling on L forehead (pt states residual from shingles)) Results/Procedures: Labs Laboratory Tests 12/12/22 04:58: Glucometer 148H 12/12/22 05:12: White Blood Count 3.0L, Red Blood Count 2.95L, Hemoglobin 8.2L, Hematocrit 26L, Mean Corpuscular Volume 87, Mean Corpuscular Hemoglobin 28, Mean Corpuscular Hemoglobin Concent 32, Red Cell Distribution Width 16.4H, Platelet Count 120L, Mean Platelet Volume 9.9, Immature Granulocyte % (Auto) 0, Neutrophils (%) (Auto) 64, Lymphocytes (%) (Auto) 19, Monocytes (%) (Auto) 10, Eosinophils (%) (Auto) 6, Basophils (%) (Auto) 1, Neutrophils # (Auto) 1.9, Lymphocytes # (Auto) 0.6L, Monocytes # (Auto) 0.3, Eosinophils # (Auto) 0.2, Basophils # (Auto) 0.0, Immature Granulocyte # (Auto) 0.0, Percent Immature Platelet Fraction 1.6, Sodium Level 140, Potassium Level 3.9, Chloride Level 107, Carbon Dioxide Level 23, Anion Gap 10, Blood Urea Nitrogen 17, Creatinine 1.01, Estimat Glomerular Filtration Rate 56, BUN/Creatinine Ratio 17, Glucose Level 159H, Calcium Level 9.1, Corrected Calcium 9.7, Total Bilirubin 0.5, Aspartate Amino Transf (AST/SGOT) 27, Alanine Aminotransferase (ALT/SGPT) 20, Alkaline Phosphatase 46, Total Protein 5.3L, Albumin 3.2 Microbiology 12/11/22 MRSA Screen - Final, Complete MRSA not isolated A/P: Assessment: GIB with anemia - management per Dr. Forbes - endoscopy planned for tomorrow CAD - Cardiac cath of 12-02-22: Left main coronary artery: Ok; Left anterior descending coronary artery: Long, up to 90% in ostial and prox LAD; Left circumflex coronary artery: Long, up to 80 in prox portion of a large OM, and 80% distal left circumflex; Right coronary artery: Dominant with up to 80 distal (but prox to PDA and PL). LVEDP 20 mmHg. LVEF 60% - referred to [place] [facility] for eval for CABG - pt reports she saw Dr. Rdz at [place] and then she saw Dr. Rodriguez who she reports has advise medication tx and then consideration for stent placement at a later date DM II Hyperlipidemia Hypertension Non-Hodgkin's Lymphoma - following with Dr. Torres Plan: * Complex management due to parallel issues of multivessel CAD (needs ASA) and GIB (needs to hold ASA) * We recommend that ASA 81 mg daily be continued as soon as allowed by the surgical services * We advise Hgb be kept greater than 8.0 d/t severe 3 vessel CAD * Ok for endoscopy form cardiac standpoint. Risk reviewed with her * Monitor labs closely * I called Dr Forbes and spoke with him ERIKA MEDINA Dec 11, 2022 09:40
[2022-12-11] MEDS ORDERED: diphenhydrAMINE 50 MG/ML INJ (BENADRYL) IVP NR (11:30)
[2022-12-11] MEDS ORDERED: diphenhydrAMINE 50 MG/ML INJ (BENADRYL) IVP PRN (11:30)
--- NOTE | 2022-12-11 17:16 | Progress Note - Cardiology ---
Cardiology SOAP Progress Note Subjective: Gen weakness and malaise No cp or palp or syncope Shortness of breath with exertion No n/v/d No further rectal bleed Objective: I&O/Vital Signs 12/11/22 12/11/22 12/11/22 12/11/22 07:00 08:12 09:45 10:05 Temp 36.8 36.5 36.7 Pulse 81 77 74 72 Resp 19 16 14 B/P (MAP) 117/58 (77) 121/56 124/58 Pulse Ox 97 94 94 O2 Delivery Room Air Room Air Room Air 12/11/22 12/11/22 12/11/22 12/11/22 12:04 12:18 13:00 16:36 Temp 36.3 36.6 37.1 Pulse 72 73 76 75 Resp 18 14 16 B/P (MAP) 110/56 (74) 115/53 116/56 (76) Pulse Ox 93 97 O2 Delivery Room Air OxyMask Room Air 12/11/22 00:00 Intake Total 1960 ml Output Total 1300 ml Balance 660 ml Weight (Pounds): 213 Weight (Ounces): 0.0 Weight (Calculated Kilograms): 96.595293 Constitutional: AAO x 3, well-developed, well-nourished Respiratory: No accessory muscle use; chest expansion is symmetric, chest is bilaterally symmetric, other (good, bilateral air entry) Cardiovascular: regular rate-rhythm, S1 and S2, systolic murmur Gastrointestional: No tender; soft; No guarding, No rebound; audible bowel sounds Extremities: swelling (mild, bilat leg swelling); No clubbing, No cyanosis Neurologic/Psychiatric: oriented x 3, other (moves all limbs equally) Skin: rash (mild rash and swelling on L forehead (pt states residual from shingles)) Results/Procedures: Labs Laboratory Tests 12/11/22 06:35: White Blood Count 4.5, Red Blood Count 2.51L, Hemoglobin 7.1L, Hematocrit 22L, Mean Corpuscular Volume 89, Mean Corpuscular Hemoglobin 28, Mean Corpuscular Hemoglobin Concent 32, Red Cell Distribution Width 16.8H, Platelet Count 127L, Mean Platelet Volume 9.7, Immature Granulocyte % (Auto) 0, Neutrophils (%) (Auto) 71, Lymphocytes (%) (Auto) 17, Monocytes (%) (Auto) 7, Eosinophils (%) (Auto) 4, Basophils (%) (Auto) 0, Neutrophils # (Auto) 3.2, Lymphocytes # (Auto) 0.8L, Monocytes # (Auto) 0.3, Eosinophils # (Auto) 0.2, Basophils # (Auto) 0.0, Immature Granulocyte # (Auto) 0.0, Percent Immature Platelet Fraction 1.6, Sodium Level 137, Potassium Level 4.4, Chloride Level 108H, Carbon Dioxide Level 21, Anion Gap 8, Blood Urea Nitrogen 23H, Creatinine 1.05, Estimat Glomerular Filtration Rate 54, BUN/Creatinine Ratio 22, Glucose Level 201H, Calcium Level 8.6, Corrected Calcium 9.5, Total Bilirubin 0.4, Aspartate Amino Transf (AST/SGOT) 19, Alanine Aminotransferase (ALT/SGPT) 15, Alkaline Phosphatase 39L, Total Protein 4.9L, Albumin 2.9L Laboratory Tests 12/10/22 04:00 12/10/22 12:00 12/11/22 06:35 A/P: Assessment: GIB with anemia - management per Dr. Forbes - endoscopy planned for tomorrow CAD - Cardiac cath of 12-02-22: Left main coronary artery: Ok; Left anterior descending coronary artery: Long, up to 90% in ostial and prox LAD; Left circumflex coronary artery: Long, up to 80 in prox portion of a large OM, and 80% distal left circumflex; Right coronary artery: Dominant with up to 80 distal (but prox to PDA and PL). LVEDP 20 mmHg. LVEF 60% - referred to [place] [facility] for eval for CABG - CV Surg felt coronaries to be too small for bypass, referred to interventional cardiology (Dr Ely) who advised med therapy as an initial step DM II Hyperlipidemia Hypertension Non-Hodgkin's Lymphoma - following with Dr. Torres Plan: * Complex management due to parallel issues of multivessel CAD (needs ASA) and GIB (needs to hold ASA) * We recommend that ASA 81 mg daily be continued as soon as allowed by the surgical services * We advise Hgb be kept greater than 8.0 d/t severe 3 vessel CAD. We recommend blood transfusions today * Ok for endoscopy form cardiac standpoint. Risk reviewed with her * Monitor labs closely * I reviewed her CV surg consult records from [facility] (summarized above) MAXIM WRIGHT MD FACP FACC CCDS Dec 11, 2022 17:16
[2022-12-11] MEDS: D5 1/2 NS W/KCL 10 MEQ/L 1,000 ML IV SCH (21:39)
[2022-12-12] VITALS (8 sets, daily range): BP systolic 107–147; BP diastolic 53–80
[2022-12-12] MEDS: PIOGLITAZONE 30MG (ACTOS) TAB PO SCH (05:21)
[2022-12-12 05:28] LABS: HEMOGLOBIN 8.2 g/dL (11.5-16.0); LYMPHOCYTES % (AUTO) 19 % (12-44); MEAN PLATELET VOLUME 9.9 fL (9.0-12.2)
[2022-12-12 05:31] LABS: BASOPHILS % (AUTO) 1 % (0-10); EOSINOPHILS # (AUTO) 0.2 10^3/uL (0.0-0.3); EOSINOPHILS % (AUTO) 6 % (0-10); HEMATOCRIT 26 % (35-52); LYMPHOCYTES # (AUTO) 0.6 10^3/uL (1.0-4.0); MEAN CORPUSCULAR HEMOGLOBIN 28 pg (25-34); MEAN CORPUSCULAR HGB CONC 32 g/dL (32-36); MEAN CORPUSCULAR VOLUME 87 fL (80-99); MONOCYTES # (AUTO) 0.3 10^3/uL (0.0-1.0); MONOCYTES % (AUTO) 10 % (0-12); NEUTROPHILS # (AUTO) 1.9 10^3/uL (1.8-7.8); NEUTROPHILS % (AUTO) 64 % (42-75); PLATELET COUNT 120 10^3/uL (130-400)
[2022-12-12 05:58] LABS: ALBUMIN 3.2 GM/DL (3.2-4.5); BILIRUBIN,TOTAL 0.5 MG/DL (0.1-1.0); CALCIUM 9.1 MG/DL (8.5-10.1); CREATININE SERUM 1.01 MG/DL (0.60-1.30); POTASSIUM 3.9 MMOL/L (3.6-5.0); TOTAL PROTEIN 5.3 GM/DL (6.4-8.2)
[2022-12-12] MEDS: LEVOTHYROXINE 75 MCG (LEVOTHROID) TABLET PO SCH (06:18)
[2022-12-12] MEDS: MULTIVIT W/MINERALS TAB (THERAGRAN M) PO SCH (06:34)
--- NOTE | 2022-12-12 07:26 | Progress Note - Surgery ---
TANIYAMELISA 12/12/22 0726: Subjective Date Seen by a Provider: Dec 12, 2022 Time Seen by a Provider: 07:21 Subjective/Events-last exam Today pt reports she started feeling somewhat better after her 2nd unit of PRBC received yesterday, still cold. She has had many loose BMs with blood since taking the bowel prep. She is ready for her scope today. Hemoglobin up to 8.2 from 7.1 yesterday. She has received a total of 2 units PRBC, 1 on 12/10 and another on 12/11. She has more color in her face today with pink cheeks. Denies SOB, CP, fever. Review of Systems General: No Chills, No Night Sweats HEENT: No Head Aches, No Visual Changes Pulmonary: No Dyspnea, No Cough Cardiovascular: No: Chest Pain, Palpitations Gastrointestinal: Diarrhea, Hematochezia; No: Nausea, Vomiting Genitourinary: No Dysuria, No Frequency Musculoskeletal: No: neck pain, shoulder pain Neurological: No: Weakness, Numbness Objective Exam Vital Signs Date Time Temp Pulse Resp B/P (MAP) Pulse Ox O2 Delivery O2 Flow Rate FiO2 12/12/22 04:39 37.5 80 20 124/60 (81) 96 Room Air 12/12/22 01:00 80 12/11/22 23:03 36.0 78 20 123/58 (79) 96 Room Air 12/11/22 20:21 36.6 87 16 148/65 (92) 100 Room Air 12/11/22 19:00 87 12/11/22 18:47 Room Air 12/11/22 16:36 37.1 75 16 116/56 (76) 97 Room Air 12/11/22 13:00 76 12/11/22 12:18 36.6 73 14 115/53 93 OxyMask 12/11/22 12:04 36.3 72 18 110/56 (74) Room Air 12/11/22 10:05 36.7 72 14 124/58 94 Room Air 12/11/22 09:45 36.5 74 16 121/56 94 Room Air 12/11/22 08:12 36.8 77 19 117/58 (77) 97 Room Air I & O 12/12/22 07:00 Intake Total 6750 ml Balance 6750 ml Capillary Refill : Less Than 3 Seconds General Appearance: No Apparent Distress, Chronically ill, Obese HEENT: Moist Mucous Membranes, Other (rash left forehead (shingles)) Neck: Non Tender, Supple Respiratory: Chest Non Tender, No Accessory Muscle Use, No Respiratory Distress Cardiovascular: No JVD, Normal Peripheral Pulses Peripheral Pulses: 2+ Dorsalis Pedis (R), 2+ Left Dors-Pedis (L), 2+ Radial Pulses (R), 2+ Radial Pulses (L) Gastrointestinal: non tender, soft Extremity: Normal Capillary Refill, Pedal Edema (2+) Neurologic/Psychiatric: Alert, Oriented x3, Normal Mood/Affect Skin: Normal Color, Warm/Dry Lymphatic: No Adenopathy Results Lab Laboratory Tests 12/12/22 04:58: Glucometer 148H 12/12/22 05:12: White Blood Count 3.0L, Red Blood Count 2.95L, Hemoglobin 8.2L, Hematocrit 26L, Mean Corpuscular Volume 87, Mean Corpuscular Hemoglobin 28, Mean Corpuscular Hemoglobin Concent 32, Red Cell Distribution Width 16.4H, Platelet Count 120L, Mean Platelet Volume 9.9, Immature Granulocyte % (Auto) 0, Neutrophils (%) (Auto) 64, Lymphocytes (%) (Auto) 19, Monocytes (%) (Auto) 10, Eosinophils (%) (Auto) 6, Basophils (%) (Auto) 1, Neutrophils # (Auto) 1.9, Lymphocytes # (Auto) 0.6L, Monocytes # (Auto) 0.3, Eosinophils # (Auto) 0.2, Basophils # (Auto) 0.0, Immature Granulocyte # (Auto) 0.0, Percent Immature Platelet Fraction 1.6, Sodium Level 140, Potassium Level 3.9, Chloride Level 107, Carbon Dioxide Level 23, Anion Gap 10, Blood Urea Nitrogen 17, Creatinine 1.01, Estimat Glomerular Filtration Rate 56, BUN/Creatinine Ratio 17, Glucose Level 159H, Calcium Level 9.1, Corrected Calcium 9.7, Total Bilirubin 0.5, Aspartate Amino Transf ( T/SGOT) 27, Alanine Aminotransferase (ALT/SGPT) 20, Alkaline Phosphatase 46, Total Protein 5.3L, Albumin 3.2 Assessment/Plan Assessment/Plan Assessment/Plan GI bleed-likely lower Diverticulosis Anemia NPO IV fluids Antiemetics as needed Track and trend hemoglobin, transfuse as needed- pt. received additional unit of PRBC yesterday, hgb went from 7.1 to 8.2 (total 2 units transfused during stay) Discussed likely diverticular bleed given hx of diverticulosis and no pain Egd/colonoscopy to further evaluate scheduled today Clinical Quality Measures DVT/VTE Risk/Contraindication: Contraindications-Pharm: Other *list below* Other: VARUN Hagan DO 12/12/22 1017: Subjective Subjective/Events-last exam Feeling a little better. Still with some blood in stools. Tolerated bowel prep. No new complaints. Hgb 8.2. Denies n/v fever sweats chills shortness of breath or chest pain. Objective Exam General Appearance: No Apparent Distress, Chronically ill, Obese HEENT: PERRL/EOMI, Moist Mucous Membranes Neck: Non Tender, Supple Respiratory: Chest Non Tender, No Accessory Muscle Use, No Respiratory Distress Cardiovascular: Regular Rate, Rhythm, No JVD Gastrointestinal: non tender, soft Extremity: Pedal Edema (2+) Neurologic/Psychiatric: Alert, Oriented x3 Skin: Normal Color, Warm/Dry Lymphatic: No Adenopathy Assessment/Plan Assessment/Plan Assessment/Plan GI bleed-likely lower Diverticulosis Anemia NPO IV fluids Antiemetics as needed Track and trend hemoglobin, transfuse as needed- pt. received additional unit of PRBC yesterday, hgb went from 7.1 to 8.2 (total 2 units transfused during stay) Discussed likely diverticular bleed given hx of diverticulosis and no pain Egd/colonoscopy to further evaluate scheduled today All questions answered with patient and family in room. Supervisory-Addendum Brief Verification & Attestation Participated in pt care: history, MDM, physical Personally performed: exam, history, MDM, supervision of care Care discussed with: Medical Student Procedures: n/a Results interpretation: Verified all documentation Verification and Attestation of Medical Student E/M Service A medical student performed and documented this service in my presence. I reviewed and verified all information documented by the medical student and made modifications to such information, when appropriate. I personally performed the physical exam and medical decision making. Varun Forbes, Dec 12, 2022,10:16 MELISA MONAHAN Dec 12, 2022 07:26 VARUN FORBES DO Dec 12, 2022 10:17
[2022-12-12] MEDS: KCL 10 MEQ TAB (MICRO K) PO SCH (08:00)
[2022-12-12] MEDS: PANTOPRAZOLE 40 MG (PROTONIX) VIAL IV SCH (09:00)
[2022-12-12] MEDS: BETAMETHASONE DIPRO (AUGMENTED) 0.05% CREAM 15 GM TOP SCH ×2 (09:00→20:57)
[2022-12-12] MEDS: OXYBUTYNIN (DITROPAN) 5 MG TAB PO SCH ×2 (09:00→20:56)
[2022-12-12] MEDS: DOCUSATE SODIUM 100 MG (COLACE) CAP PO SCH ×2 (09:00→21:02)
--- NOTE | 2022-12-12 09:48 | Progress Note - Cardiology ---
Cardiology SOAP Progress Note Subjective: No cp or palp or syncope No shortness of breath at rest No n/v/d Gen malaise and weakness present No focal weakness Still intermittently having blood in stools Objective: I&O/Vital Signs 12/11/22 12/12/22 12/12/22 12/12/22 23:03 01:00 04:39 07:00 Temp 36.0 37.5 Pulse 78 80 80 82 Resp 20 20 B/P (MAP) 123/58 (79) 124/60 (81) Pulse Ox 96 96 O2 Delivery Room Air Room Air 12/12/22 07:58 Temp 36.4 Pulse 79 Resp 18 B/P (MAP) 125/61 (82) Pulse Ox 97 O2 Delivery Room Air 12/12/22 00:00 Intake Total 6750 ml Balance 6750 ml Weight (Pounds): 213 Weight (Ounces): 0.0 Weight (Calculated Kilograms): [id number] Constitutional: AAO x 3, well-developed, well-nourished Respiratory: No accessory muscle use; chest expansion is symmetric, chest is bilaterally symmetric, other (good, bilateral air entry) Cardiovascular: regular rate-rhythm, S1 and S2, systolic murmur Gastrointestional: No tender; soft; No guarding, No rebound; audible bowel sounds Extremities: swelling (mild, bilat leg swelling); No clubbing, No cyanosis Neurologic/Psychiatric: oriented x 3, other (moves all limbs equally) Skin: rash (mild rash and swelling on L forehead (pt states residual from shingles)) Results/Procedures: Labs Laboratory Tests 12/12/22 04:58: Glucometer 148H 12/12/22 05:12: White Blood Count 3.0L, Red Blood Count 2.95L, Hemoglobin 8.2L, Hematocrit 26L, Mean Corpuscular Volume 87, Mean Corpuscular Hemoglobin 28, Mean Corpuscular Hemoglobin Concent 32, Red Cell Distribution Width 16.4H, Platelet Count 120L, Mean Platelet Volume 9.9, Immature Granulocyte % (Auto) 0, Neutrophils (%) (Auto) 64, Lymphocytes (%) (Auto) 19, Monocytes (%) (Auto) 10, Eosinophils (%) (Auto) 6, Basophils (%) (Auto) 1, Neutrophils # (Auto) 1.9, Lymphocytes # (Auto) 0.6L, Monocytes # (Auto) 0.3, Eosinophils # (Auto) 0.2, Basophils # (Auto) 0.0, Immature Granulocyte # (Auto) 0.0, Percent Immature Platelet Fraction 1.6, Sodium Level 140, Potassium Level 3.9, Chloride Level 107, Carbon Dioxide Level 23, Anion Gap 10, Blood Urea Nitrogen 17, Creatinine 1.01, Estimat Glomerular Filtration Rate 56, BUN/Creatinine Ratio 17, Glucose Level 159H, Calcium Level 9.1, Corrected Calcium 9.7, Total Bilirubin 0.5, Aspartate Amino Transf (AST/SGOT) 27, Alanine Aminotransferase (ALT/SGPT) 20, Alkaline Phosphatase 46, Total Protein 5.3L, Albumin 3.2 Microbiology 12/11/22 MRSA Screen - Final, Complete MRSA not isolated Laboratory Tests 12/10/22 12:00 12/11/22 06:35 12/12/22 05:12 A/P: Assessment: GIB with anemia - management per Dr. Forbes - endoscopy planned for today CAD - Cardiac cath of 12-02-22: Left main coronary artery: Ok; Left anterior descending coronary artery: Long, up to 90% in ostial and prox LAD; Left circumflex coronary artery: Long, up to 80 in prox portion of a large OM, and 80% distal left circumflex; Right coronary artery: Dominant with up to 80 distal (but prox to PDA and PL). LVEDP 20 mmHg. LVEF 60% - referred to [facility] for eval for CABG - CV Surg felt coronaries to be too small for bypass, referred to interventional cardiology (Dr Ely) who has advised medical therapy as an initial step DM II Hyperlipidemia Hypertension Non-Hodgkin's Lymphoma - following with Dr. Torres Plan: * Complex management due to parallel issues of multivessel CAD (needs ASA) and GIB (needs to hold ASA) * We recommend that ASA 81 mg daily be continued as soon as allowed by the Surgical services * We advise Hgb be kept greater than 8.0 d/t severe 3 vessel CAD. We recommend blood transfusions if Hgb falls below 8 * Ok for endoscopy form cardiac standpoint. Risk reviewed with her * Monitor labs closely MAXIM WRIGHT MD FACP [facility] Dec 12, 2022 09:48
--- NOTE | 2022-12-12 11:47 | Progress Note ---
RAFAEL POZO 12/12/22 1147: Subjective Date Seen by a Provider: Dec 12, 2022 Time Seen by a Provider: 07:15 Subjective/Events-last exam Hospital Course This patient is an 82 year old female who was admitted to [facility] on 12/11 for acute rectal bleeding and anemia. She began experiencing rectal bleeding following a BM the night prior to admission. Upon arrival her Hgb was 8.9 which was down from 10.8 on 12/04/22. During her stay her Hgb dropped as low as 7.0. She received 2 units pRBC during her stay. She was seen by Surgery who had her complete a bowel prep on 12/11 for a colonoscopy 12/12. She was also followed by Cardiology due to ongoing angina and CAD. Dr. Sharma is familiar with her care and no remarkable cardiac events occured during her stay. Her ASA was held due to her rectal bleeding and will be restarted as surgery allows. Progress When seen today, this patient was awake sitting in bed. Since being seen yesterday she received 1 more unit pRBC and her Hgb this morning was improved to 8.2 from 7.1. Surgery saw her yesterday and had her do a bowel prep for a planned colonoscopy today. She reports completing it without issues. She continues to have some intermittent CP, as well as blood in her stools. She denies palpitations, SOB, abd pain, or N/V Review of Systems General: No Chills, No Night Sweats HEENT: No Head Aches, No Visual Changes Pulmonary: No Dyspnea, No Cough Cardiovascular: Chest Pain (intermittent); No: Palpitations Gastrointestinal: Hematochezia; No: Nausea, Vomiting, Abdominal Pain Genitourinary: No Dysuria, No Hematuria Neurological: No: Weakness, Numbness Objective Exam Last Set of Vital Signs Vital Signs Date Time Temp Pulse Resp B/P (MAP) Pulse Ox O2 Delivery O2 Flow Rate FiO2 12/12/22 11:16 36.6 80 18 121/60 (80) 97 Room Air 12/10/22 08:18 21 Capillary Refill : Less Than 3 Seconds I&O Intake and Output 12/12/22 00:00 Intake Total 7120 ml Output Total 700 ml Balance 6420 ml Intake Oral 5870 ml IV Total 1000 ml Other 250 ml Output Urine Total 700 ml # Voids 8 # Bowel Movements 11 General: Alert, Oriented X3, No Acute Distress HEENT: Atraumatic, EOMI Neck: Supple, No Thyromegaly Lungs: Clear to Auscultation, Normal Air Movement Heart: Regular Rate, No Murmurs Abdomen: Normal Bowel Sounds, Soft, No Tenderness Extremities: No Clubbing, No Cyanosis, No Edema Skin: No Rashes, No Breakdown Neuro: Normal Speech, Normal Tone, Sensation Intact Results Lab Laboratory Tests 12/12/22 04:58: Glucometer 148H 12/12/22 05:12: White Blood Count 3.0L, Red Blood Count 2.95L, Hemoglobin 8.2L, Hematocrit 26L, Mean Corpuscular Volume 87, Mean Corpuscular Hemoglobin 28, Mean Corpuscular Hemoglobin Concent 32, Red Cell Distribution Width 16.4H, Platelet Count 120L, Mean Platelet Volume 9.9, Immature Granulocyte % (Auto) 0, Neutrophils (%) (Auto) 64, Lymphocytes (%) (Auto) 19, Monocytes (%) (Auto) 10, Eosinophils (%) (Auto) 6, Basophils (%) (Auto) 1, Neutrophils # (Auto) 1.9, Lymphocytes # (Auto) 0.6L, Monocytes # (Auto) 0.3, Eosinophils # (Auto) 0.2, Basophils # (Auto) 0.0, Immature Granulocyte # (Auto) 0.0, Percent Immature Platelet Fraction 1.6, Sodium Level 140, Potassium Level 3.9, Chloride Level 107, Carbon Dioxide Level 23, Anion Gap 10, Blood Urea Nitrogen 17, Creatinine 1.01, Estimat Glomerular Filtration Rate 56, BUN/Creatinine Ratio 17, Glucose Level 159H, Calcium Level 9.1, Corrected Calcium 9.7, Total Bilirubin 0.5, Aspartate Amino Transf (AST/SGOT) 27, Alanine Aminotransferase (ALT/SGPT) 20, Alkaline Phosphatase 46, Total Protein 5.3L, Albumin 3.2 12/12/22 10:56: Glucometer 152H Microbiology 12/11/22 MRSA Screen - Final, Complete MRSA not isolated Assessment/Plan Assessment/Plan Assess & Plan/Chief Complaint Acute Rectal Bleeding -upper vs. lower GI bleed. 2nd to diverticulosis vs. internal hemorrhoid vs mass vs upper GI. -No history of Blood thinner use and normal coag study. -Bowel prep yesterday for planned colonoscopy today. Management per surg. Anemia -(12/10) Hgb 8.9 today down from 10.8 on 12/04. Will monitor and replace with pRBC for Hgb < 8.0 given CAD history. -(12/11) Patient had repeat CBC yesterday afternoon which showed Hgb 7.0. She was given 1 unit pRBC yesterday yesterday. Hgb this morning 7.1. -(12/12) Hgb improved to 8.2 from 7.1 after receiving 1 unit pRBC. Insulin Dependent Diabetes -Insulin sliding scale HX CAD -Heart Cath 12/02/[address] Sharma -> Multi-vessel disease. Refferal placed to Dr. Benjamin at [facility] to discuss CABG. LVEF of 60% at that time. -Reports seeing a Doctor at [facility] 12/09 and was told she isn't a candidate for CABG due to small vessel size and that they would try medication for a year instead. -Praluent Injectable for HLD. Allergic to statins. -ASA on hold until okay by surgery -Cardiology Consulted with recommendations appreciated Angina -Ongoing in nature. Part of what initiated the work-up above. Management per cardiology. HLD HTN -Will monitor BP and restart home meds as able. Hypothyroidism -Continue home medications Diet: NPO DVT proph: SCDs Clinical Quality Measures Admission Status Admission Dx Acute Rectal Bleeding -upper vs. lower GI bleed. 2nd to diverticulosis vs. internal hemorrhoid vs mass vs upper GI. -No history of Blood thinner use and normal coag study. -NPO. Hold ASA until bleeding stops. Zofran for nausea. Consult Surg Anemia -Hgb 8.9 today down from 10.8 on 12/04. Will monitor and replace with pRBC for Hgb < 8.0 given CAD history. Insulin Dependent Diabetes -Insulin sliding scale HX CAD -Heart Cath 12/02/[address] Sharma -> Multi-vessel disease. Refferal placed to Dr. Benjamin at [facility] to discuss CABG. LVEF of 60% at that time. -Praluent Injectable for HLD. Allergic to statins. -Cardiology Consulted with recommendations appreciated HLD HTN -Will monitor BP and restart home meds as able. Hypothyroidism -Continue home medications Diet: NPO DVT proph: Lovenox & SCDs DVT/VTE Risk/Contraindication: Contraindications-Pharm: Other *list below* Other: BREANA Fritz DO 12/12/22 1332: Supervisory-Addendum Brief Verification & Attestation Participated in pt care: history, MDM, physical Personally performed: exam, history, MDM, supervision of care Care discussed with: Medical Student Procedures: n/a Results interpretation: Verified all documentation Verification and Attestation of Medical Student E/M Service A medical student performed and documented this service in my presence. I reviewed and verified all information documented by the medical student and made modifications to such information, when appropriate. I personally performed the physical exam and medical decision making. Breana Blount, Dec 12, 2022,13:32 RAFAEL POZO Dec 12, 2022 11:47 BREANA BLOUNT DO Dec 12, 2022 13:32
[2022-12-12] MEDS ORDERED: LACTATED RINGERS 1,000 ML IV STA (12:08)
[2022-12-12] MEDS ORDERED: HURRICAINE EXT TUBE (BENZOCAINE) XX PRN (12:15)
[2022-12-12] MEDS: LORATADINE (CLARITIN) 10 MG TAB PO SCH (15:49)
[2022-12-12] MEDS: polyethylene glycoL POWDER 17 GM (MIRALAX) PACK PO SCH (15:50)
[2022-12-12] MEDS: FUROSEMIDE 20 MG (LASIX) TAB PO SCH (15:50)
[2022-12-12] MEDS: SENNOSIDES 8.6 MG (SENOKOT) TAB PO SCH ×2 (15:50→21:02)
[2022-12-12] MEDS: VITAMIN D3 25 MCG (1,000 UNITS) TABLET PO SCH ×2 (15:50→20:56)
[2022-12-12] MEDS ORDERED: PROPOFOL INJECTION 50 ML IV ONE (16:13)
--- NOTE | 2022-12-12 17:06 | Progress Note-Post Operative ---
Post-Operative Progess Note Surgeon (s)/Loss Prevention Consultant (s) Surgeon VARUN BETANCOURT DO Loss Prevention Consultant: n/a Pre-Operative Diagnosis GI bleed Post-Operative Diagnosis mucosal change body of stomach, diverticulosis Procedure & Operative Findings Date of Procedure 12/12/22 Procedure Performed/Findings EGD with biopsy, colonoscopy Anesthesia Type per de icer Estimated Blood Loss Estimated blood loss (mL): none Specimens/Packing Specimens Removed biopsy body of stomach VARUN BETANCOURT DO Dec 12, 2022 17:06
[2022-12-12] MEDS: D5 1/2 NS W/KCL 10 MEQ/L 1,000 ML IV SCH (19:35)
[2022-12-13] VITALS (14 sets, daily range): BP systolic 105–132; BP diastolic 53–67
[2022-12-13] MEDS: LACTATED RINGERS 1,000 ML IV SCH ×2 (00:26→16:54)
[2022-12-13] MEDS: NITROGLYCERIN 0.4 MG SL TABS BTL 25'S SL PRN ×3 (02:24→04:51)
[2022-12-13 04:02] LABS: BASOPHILS % (AUTO) 0 % (0-10); MONOCYTES # (AUTO) 0.3 10^3/uL (0.0-1.0)
[2022-12-13 04:04] LABS: EOSINOPHILS # (AUTO) 0.1 10^3/uL (0.0-0.3); EOSINOPHILS % (AUTO) 2 % (0-10); LYMPHOCYTES # (AUTO) 0.7 10^3/uL (1.0-4.0); LYMPHOCYTES % (AUTO) 19 % (12-44); MEAN CORPUSCULAR HEMOGLOBIN 28 pg (25-34); MEAN CORPUSCULAR HGB CONC 32 g/dL (32-36); MEAN CORPUSCULAR VOLUME 88 fL (80-99); MEAN PLATELET VOLUME 9.6 fL (9.0-12.2); MONOCYTES % (AUTO) 8 % (0-12); NEUTROPHILS # (AUTO) 2.6 10^3/uL (1.8-7.8); NEUTROPHILS % (AUTO) 71 % (42-75); PLATELET COUNT 128 10^3/uL (130-400); WHITE BLOOD COUNT 3.7 10^3/uL (4.3-11.0)
[2022-12-13 04:09] LABS: ALBUMIN 2.9 GM/DL (3.2-4.5)
[2022-12-13 04:11] LABS: CALCIUM 8.5 MG/DL (8.5-10.1)
[2022-12-13 04:12] LABS: TOTAL PROTEIN 4.8 GM/DL (6.4-8.2)
[2022-12-13 04:14] LABS: BILIRUBIN,TOTAL 0.6 MG/DL (0.1-1.0)
[2022-12-13 04:16] LABS: CREATININE SERUM 0.87 MG/DL (0.60-1.30)
[2022-12-13 04:18] LABS: HEMOGLOBIN 6.5 g/dL (11.5-16.0)
[2022-12-13 04:19] LABS: HEMATOCRIT 20 % (35-52)
[2022-12-13] MEDS ORDERED: NS IV 500 ML 500 ML IV SCH ×2 (04:30→08:45)
--- NOTE | 2022-12-13 04:46 | OPERATIVE REPORT ---
DATE OF SERVICE: 12/12/2022 PREOPERATIVE DIAGNOSIS: Gastrointestinal bleed. POSTOPERATIVE DIAGNOSES: Mucosal change in body of stomach and diverticulosis. PROCEDURE: EGD with biopsy, colonoscopy. SURGEON: Roger Forbes DO ANESTHESIA: Per CLERK ANALYST. ESTIMATED BLOOD LOSS: None. COMPLICATIONS: None. SPECIMENS: Biopsy of the body of the stomach. INDICATIONS: The patient is an 82-year-old female who is having gastrointestinal bleeding. She required 2 units of packed red blood cells. She was discussed risks and benefits of having EGD and colonoscopy for further evaluation and family understand and wished to proceed. Consent was signed and in chart. DESCRIPTION OF PROCEDURE: The patient was taken to endoscopy suite, placed in the left lateral recumbent position. Timeout was performed. Scope was inserted in the mouth, down the esophagus, stomach, into the duodenum without difficulty. No polyps, masses or ulcerations. duodenum and antrum had normal appearance. In the body, had mucosal changes, biopsy was obtained. Scope was retroflexed noting a small hiatal hernia, no other pathology. Scope was returned to its normal position, slowly withdrawn until distal esophagus. No polyps, masses or ulcerations within the GE junction. Scope was slowly retracted back until completely removed. Digital rectal exam was performed. No palpable polyps, masses or ulcerations. Scope was inserted in the rectum, advanced all the way to the cecum, which had some difficulty due to still a large clot burden despite prep. The prep was okay with utilizing lots of irrigation and suction. Scope was then slowly retracted back, irrigated and suctioned trying to improve visualization as well. There were no polyps, masses or ulcerations visualized within the cecum, ascending, transverse, descending and sigmoid colon. Throughout the colon had diverticula present. Once in the rectum, scope was retroflexed, noting no other pathology. Scope was returned to its normal position, slowly withdrawn until completely removed. The patient tolerated the procedure well, no complications, she was taken to recovery room in stable condition. RECOMMENDATIONS: The patient will stay on clear liquids. When hemoglobin stabilizes when advance. Likely source of bleeding from a diverticular bleed, If continues to have bleeding could do a tagged rbc bleeding scan to help also she may need repeat endoscopy as well. Job ID: [id number] DocumentID: [id number] Dictated Date: 12/12/2022 21:16:43 Laboratory Technologist Date: 12/13/2022 01:07:00 Dictated By: DO KRISHNA CAVAZOS
[2022-12-13] MEDS: LEVOTHYROXINE 75 MCG (LEVOTHROID) TABLET PO SCH (06:21)
[2022-12-13] MEDS: MULTIVIT W/MINERALS TAB (THERAGRAN M) PO SCH (06:21)
[2022-12-13] MEDS: PIOGLITAZONE 30MG (ACTOS) TAB PO SCH (06:21)
--- NOTE | 2022-12-13 09:13 | Cardiology Progress Note ---
Subjective Date Seen by Provider: Dec 13, 2022 Time Seen by Provider: 09:12 Subjective/Events-last exam Patient was seen at bedside, laying down comfortably Complaining of chest pain, generalized body ache Objective-Cardiology Exam Last Set of Vital Signs Vital Signs 12/10/22 12/12/22 12/13/22 08:18 18:44 08:45 Temp 36.5 Pulse 104 Resp 20 B/P (MAP) 123/58 (79) Pulse Ox 90 O2 Delivery Room Air O2 Flow Rate 0.00 FiO2 21 I&O Intake and Output 12/13/22 00:00 Intake Total 850 ml Balance 850 ml Intake Oral 350 ml IV Total 500 ml # Voids 7 # Bowel Movements 5 General: Alert, Oriented X3, No Acute Distress HEENT: Atraumatic, EOMI Neck: Supple, No Thyromegaly Lungs: Clear to Auscultation, Normal Air Movement Heart: Regular Rate, No Murmurs Abdomen: Normal Bowel Sounds, Soft, No Tenderness Extremities: No Clubbing, No Cyanosis, No Edema Skin: No Rashes, No Breakdown Neuro: Normal Speech, Normal Tone, Sensation Intact Psych/Mental Status: Mental Status NL Results Lab Laboratory Tests 12/13/22 03:50 A/P-Cardiology Admission Diagnosis GI bleed Anemia Non-ST elevation myocardial infarction Hypertension Assessment/Plan GIB with anemia - management per Dr. Forbes I will transfuse 2 units of packed RBCs, trying to keep hemoglobin over 8. Chest pain, probably secondary to severe anemia and coronary artery disease Transfuse and monitor CAD - Cardiac cath of 12-02-22: Left main coronary artery: Ok; Left anterior descending coronary artery: Long, up to 90% in ostial and prox LAD; Left circumflex coronary artery: Long, up to 80 in prox portion of a large OM, and 80% distal left circumflex; Right coronary artery: Dominant with up to 80 distal (but prox to PDA and PL). LVEDP 20 mmHg. LVEF 60% - referred to [facility] for eval for CABG - CV Surg felt coronaries to be too small for bypass, referred to interventional cardiology (Dr Ely) who has advised medical t herapy as an initial step DM II Hyperlipidemia Hypertension Non-Hodgkin's Lymphoma - following with FARRUKH Solorio MD Dec 13, 2022 09:13
[2022-12-13] MEDS: KCL 10 MEQ TAB (MICRO K) PO SCH (10:29)
[2022-12-13] MEDS: OXYBUTYNIN (DITROPAN) 5 MG TAB PO SCH ×2 (10:29→22:47)
[2022-12-13] MEDS: FUROSEMIDE 20 MG (LASIX) TAB PO SCH (10:29)
[2022-12-13] MEDS: LORATADINE (CLARITIN) 10 MG TAB PO SCH (10:29)
[2022-12-13] MEDS: VITAMIN D3 25 MCG (1,000 UNITS) TABLET PO SCH ×2 (10:29→22:47)
[2022-12-13] MEDS ORDERED: FUROSEMIDE 40 MG/4 ML INJ (LASIX) IVP ONE (10:30)
[2022-12-13] MEDS: PANTOPRAZOLE 40 MG (PROTONIX) VIAL IV SCH (10:30)
[2022-12-13] MEDS: BETAMETHASONE DIPRO (AUGMENTED) 0.05% CREAM 15 GM TOP SCH ×2 (10:31→22:50)
[2022-12-13] MEDS: SENNOSIDES 8.6 MG (SENOKOT) TAB PO SCH ×2 (10:45→22:46)
[2022-12-13] MEDS: polyethylene glycoL POWDER 17 GM (MIRALAX) PACK PO SCH (10:45)
[2022-12-13] MEDS: DOCUSATE SODIUM 100 MG (COLACE) CAP PO SCH ×2 (10:45→22:45)
--- NOTE | 2022-12-13 10:54 | Progress Note - Surgery ---
JONO LEO 12/13/22 1054: Subjective Date Seen by a Provider: Dec 13, 2022 Time Seen by a Provider: 10:00 Subjective/Events-last exam Patient is seen laying upright in bed, son at bedside. Patient is very short of breath this morning and is unable to answer many questions due to this. The patient's son indicated that he feels all questions have already been answered and recorded. Patient's history is mostly obtained from records and nursing staff. Per nursing, patient had an episode of chest pain and shortness of breath that started approximately 02:30 today, has been given a total of 3 doses of sublingual nitro without relief of symptoms. While in the room, the patient was placed on 2L of O2 and O2 saturation improved from 91 to 94%, but the patient reports that her symptoms are still persisting. Patient's hemoglobin was measured at 6.5 this AM, she has been transfused with 1 unit of PRBCs this morning, with a 2nd unit being transfused during the encounter. This will be her 4th unit transfused during this stay after receiving 1 unit on 12/10 and another on 12/11. Patient underwent endoscopy yesterday which showed diverticulosis. Per nursing, patient passed two stools this morning that contained dark material appearing to be clotted blood and bright red blood. Patient has no other complaints at this time. Review of Systems Unable to obtain due to patient's condition. Objective Exam Vital Signs Date Time Temp Pulse Resp B/P (MAP) Pulse Ox O2 Delivery O2 Flow Rate FiO2 12/13/22 09:43 36.5 101 20 124/62 91 Room Air 12/13/22 09:28 36.5 100 14 121/63 91 Room Air 12/13/22 08:45 36.5 104 20 123/58 (79) 90 Room Air 12/13/22 08:08 36.5 94 14 132/61 93 Room Air 12/13/22 07:38 36.8 91 20 131/60 (83) 93 Room Air 12/13/22 07:07 94 12/13/22 06:07 36.7 88 18 126/60 98 Room Air 12/13/22 06:01 36.5 97 78 119/56 98 Room Air 12/13/22 05:46 36.8 98 18 112/56 95 Simple Mask 12/13/22 03:54 36.4 92 20 117/67 (84) 98 Room Air 12/13/22 01:00 90 12/12/22 23:50 36.3 89 20 120/57 (78) 95 Room Air 12/12/22 20:15 36.0 90 20 123/71 (88) 100 Room Air 12/12/22 19:00 92 12/12/22 18:44 90 Room Air 0.00 12/12/22 17:44 36.1 86 20 147/80 (102) 90 Room Air 12/12/22 17:15 85 16 95 Room Air 12/12/22 17:10 78 16 99 OxyMask 8.00 12/12/22 15:16 94 Room Air 0.00 12/12/22 12:45 78 12/12/22 11:16 36.6 80 18 121/60 (80) 97 Room Air I & O 12/13/22 07:00 Intake Total 1250 ml Balance 1250 ml Capillary Refill : Less Than 3 Seconds General Appearance: WD/WN, Moderate Distress, Obese HEENT: PERRL/EOMI, Pale Conjunctivae (L), Pale Conjunctivae (R) Neck: Non Tender, Supple Respiratory: Accessory Muscle Use, Crackles (All lobes, worse in lower lobes b/l, able to be auscultated anteriorly), Respiratory Distress (I) Cardiovascular: Regular Rate, Rhythm, No JVD Peripheral Pulses: 2+ Dorsalis Pedis (R), 2+ Left Dors-Pedis (L), 2+ Radial Pulses (R), 2+ Radial Pulses (L) Gastrointestinal: non tender, soft Extremity: Normal Capillary Refill, Non Tender, No Calf Tenderness, Pedal Edema (2+ b/l, patient states chronic) Neurologic/Psychiatric: Alert, Oriented x3 Skin: Warm/Dry, Pallor Lymphatic: No Adenopathy Results Lab Laboratory Tests 12/12/22 10:56: Glucometer 152H 12/12/22 17:42: Glucometer 159H 12/12/22 20:55: Glucometer 190H 12/13/22 03:50: White Blood Count 3.7L, Red Blood Count 2.31L, Hemoglobin 6.5#*L, Hematocrit 20*L, Mean Corpuscular Volume 88, Mean Corpuscular Hemoglobin 28, Mean Corpuscular Hemoglobin Concent 32, Red Cell Distribution Width 16.3H, Platelet Count 128L, Mean Platelet Volume 9.6, Immature Granulocyte % (Auto) 0, Neutrophils (%) (Auto) 71, Lymphocytes (%) (Auto) 19, Monocytes (%) (Auto) 8, Eosinophils (%) (Auto) 2, Basophils (%) (Auto) 0, Neutrophils # (Auto) 2.6, Lymphocytes # (Auto) 0.7L, Monocytes # (Auto) 0.3, Eosinophils # (Auto) 0.1, Basophils # (Auto) 0.0, Immature Granulocyte # (Auto) 0.0, Percent Immature Platelet Fraction 1.7, Sodium Level 141, Potassium Level 4.0, Chloride Level 110H, Carbon Dioxide Level 20L, Anion Gap 11, Blood Urea Nitrogen 16, Creatinine 0.87, Estimat Glomerular Filtration Rate 67, BUN/Creatinine Ratio 18, Glucose Level 239H, Calcium Level 8.5, Corrected Calcium 9.4, Total Bilirubin 0.6, Aspartate Amino Transf (AST/SGOT) 22, Alanine Aminotransferase (ALT/SGPT) 14, Alkaline Phosphatase 37L, Total Protein 4.8L, Albumin 2.9L Microbiology 12/11/22 MRSA Screen - Final, Complete MRSA not isolated Assessment/Plan Assessment/Plan Assessment/Plan GI bleed Diverticulosis Anemia Patient underwent EGD/colonoscopy yesterday, showed diverticulosis, no areas of active bleeding were visualized Patient is scheduled to undergo a GI bleeding scan this afternoon Hg measured at 6.5 this AM, patient transfused with 1 unit this morning, currently being transfused with a 2nd unit. Will recheck Hg later today. Currently on clears Continue IV protonix Clinical Quality Measures DVT/VTE Risk/Contraindication: Contraindications-Pharm: Other *list below* Other: BRADY Otto DO 12/13/22 1317: Subjective Time Seen by a Provider: 11:23 Subjective/Events-last exam Pt seen and examined, sitting up in bed. States she feels a little weak but denies any pain. She is currently getting blood transfusion. Review of Systems General: Fatigue, Malaise Pulmonary: Dyspnea; No Cough Cardiovascular: Chest Pain (earlier, but none now); No: Palpitations Gastrointestinal: No: Nausea, Vomiting, Abdominal Pain Objective Exam General Appearance: Moderate Distress, Obese HEENT: Pale Conjunctivae (L), Pale Conjunctivae (R) Respiratory: Accessory Muscle Use, Crackles (All lobes, worse in lower lobes b/l, able to be auscultated anteriorly), Respiratory Distress (I) Cardiovascular: Regular Rate, Rhythm, No Murmur Gastrointestinal: soft, tenderness (mild with deep palpation) Extremity: No Calf Tenderness, Pedal Edema (2+ b/l, patient states chronic) Neurologic/Psychiatric: Alert, Oriented x3 Skin: Warm/Dry, Pallor Assessment/Plan Assessment/Plan Assessment/Plan GI bleed Diverticulosis Anemia Patient underwent EGD/colonoscopy yesterday, showed diverticulosis, no areas of active bleeding were visualized Patient is scheduled to undergo a GI bleeding scan this afternoon Hg measured at 6.5 this AM, patient transfused with 1 unit this morning, currently being transfused with a 2nd unit. Will recheck Hg later today. Currently on clears Continue IV protonix Supervisory-Addendum Brief Verification & Attestation Participated in pt care: history, MDM, physical Personally performed: exam, history, MDM, supervision of care Care discussed with: Medical Student Procedures: n/a Verification and Attestation of Medical Student E/M Service A medical student performed and documented this service. I then reviewed and verified all information documented by the medical student and made modifications to such information, when appropriate. I personally performed a physical exam, medical decision making and then discussed any differences between the notes and made revisions as necessary to create one note. Brady Reyes , 12/13/22 , 13:17 JONO LEO Dec 13, 2022 10:54 BRADY REYES DO Dec 13, 2022 13:17
[2022-12-13] MEDS ORDERED: HEParin (CENTRAL IV FLUSH) 500 UNIT/5 ML SYR ONE (11:00)
--- NOTE | 2022-12-13 13:39 | Progress Note - Hospitalist ---
CYNTHIA BARRON 12/13/22 1339: Subjective HPI/CC On Admission Date Seen by Provider: Dec 13, 2022 Subjective/Events-last exam Pt presenting for Acute GI bleed that began 12/09/22. Pt received an EGD/Colonoscopy yesterday that was significant for Diverticulosis. Pt began having melena again today w/o any associated abdominal pain. Pt states today feels weak, sob, and has associated 2-3/10 chest pain that has been present for about a week. Due to patients known history of cardiovascular disease and hgb at 6.5, she received two units of blood. Pt denies dizziness, headache, N/V/, and abdominal pain. Review of Systems General: No Chills HEENT: No Head Aches Pulmonary: Dyspnea Cardiovascular: Chest Pain (Chest Pain has been present for about a week; Rates it a 2-3/10) Gastrointestinal: Melena; No: Nausea, Vomiting, Abdominal Pain Objective Exam Vital Signs Vital Signs Date Time Temp Pulse Resp B/P (MAP) Pulse Ox O2 Delivery O2 Flow Rate FiO2 12/13/22 12:30 36.5 90 14 105/53 96 Nasal Cannula 1.00 12/10/22 08:18 21 Capillary Refill : Less Than 3 Seconds General Appearance: No Apparent Distress Respiratory: Lungs Clear, Normal Breath Sounds Cardiovascular: Regular Rate, Rhythm, No Murmur, Normal Peripheral Pulses Gastrointestinal: Normal Bowel Sounds, Non Tender, Soft Neurologic/Psychiatric: Alert, Oriented x3 Skin: Normal Color, Warm/Dry Results/Procedures Lab Laboratory Tests 12/13/22 03:50 Patient resulted labs reviewed. Assessment/Plan Assessment and Plan Assess & Plan/Chief Complaint Leonora Leger is a 82yo male presenting due to Acute GI Bleed secondary to Diverticulosis. Acute GI Bleed EGD/Colonoscopy - Diverticulosis IV Fluid Replacement Anemia 2 Units Blood Transfused this AM, Due to Hgb being 6.5 and pt having known Cardiovascular Disease Continue to monitor CAD Aspirin Held; Will restart when bleed stops Diabetes Mellitus Insulin Sliding Scale Continue Pioglitazone Hyperlipidemia HTN Continue to monitor Blood Pressure Continue Carvedilol Hypothyroidism Continue Levothyroxine Clinical Quality Measures DVT/VTE Risk/Contraindication: Contraindications-Pharm: Other *list below* Other: JACQUES Hidalgo MD 12/13/226: Subjective HPI/CC On Admission Time Seen by Provider: 10:15 Objective Exam General Appearance: Mild Distress (uncomfortable), Obese Respiratory: Crackles, Decreased Breath Sounds, Respiratory Distress (tachypnea) Cardiovascular: No Murmur, Tachycardia Gastrointestinal: Normal Bowel Sounds, Non Tender, Soft Extremity: Normal Inspection, Pedal Edema Neurologic/Psychiatric: Alert, Depressed Affect Skin: Normal Color, Warm/Dry Assessment/Plan Assessment and Plan Assess & Plan/Chief Complaint Transfuse 2 units PRBC due to acute blood loss anemia associated with acute GI bleeding. Surgery following. Underwent EGD/colonoscopy yesterday, showed diverticulosis. Intermittent chest pain, Cardiology following. Given Lasix due to respiratory issues likely from volume overload, possible TACO, but cardiomyopathy associated with known underlying coronary disease also likely. Monitor closely. Diagnosis/Problems Diagnosis/Problems (1) GI bleeding Status: Acute (2) Acute blood loss anemia Status: Acute (3) Volume overload Status: Acute Qualifiers: Qualified Codes: E87.70 - Fluid overload, unspecified (4) Chest discomfort Status: Acute (5) T2DM (type 2 diabetes mellitus) Status: Chronic (6) HTN (hypertension) Status: Acute (7) Obesity Status: Chronic Supervisory-Addendum Brief Verification & Attestation Participated in pt care: history, MDM, physical Personally performed: exam, history, MDM, supervision of care Care discussed with: Medical Student Procedures: n/a Results interpretation: Verified all documentation A medical student performed and documented this service in my presence. I reviewed and verified all information documented by the medical student and made modifications to such information, when appropriate. I personally performed the physical exam and medical decision making. CYNTHIA BARRON Dec 13, 2022 13:39 JACQUES GRIGSBY MD Dec 13, 2022 18:16
--- NOTE | 2022-12-13 15:00 | Diagnostic Imaging Report ---
EXAMINATION: Nuclear medicine gastrointestinal bleeding study. HISTORY: Gastrointestinal bleeding. FINDINGS: After administration of 30.9 mCi of technetium 99m tagged red blood cells projection images of the abdomen were obtained. There is expected activity within the vasculature. There is slow accumulation of activity within the urinary bladder. No activity is seen within the gastrointestinal tract. IMPRESSION: No scintigraphic evidence of gastrointestinal bleeding. Dictated by: Dictated on workstation # [id number]
[2022-12-13 16:18] LABS: HEMOGLOBIN 8.5 g/dL (11.5-16.0)
[2022-12-14 00:12] VITALS: BP 105/51
[2022-12-14 03:46] VITALS: BP 105/55
[2022-12-14] MEDS: PIOGLITAZONE 30MG (ACTOS) TAB PO SCH (06:14)
[2022-12-14] MEDS: MULTIVIT W/MINERALS TAB (THERAGRAN M) PO SCH (06:14)
[2022-12-14] MEDS: LEVOTHYROXINE 75 MCG (LEVOTHROID) TABLET PO SCH (06:14)
[2022-12-14 07:58] VITALS: BP 118/57
[2022-12-14 07:59] LABS: BASOPHILS % (AUTO) 0 % (0-10); EOSINOPHILS % (AUTO) 0 % (0-10); HEMATOCRIT 26 % (35-52); HEMOGLOBIN 8.5 g/dL (11.5-16.0); LYMPHOCYTES % (AUTO) 14 % (12-44); MEAN CORPUSCULAR HEMOGLOBIN 30 pg (25-34); MEAN CORPUSCULAR HGB CONC 33 g/dL (32-36); MEAN CORPUSCULAR VOLUME 89 fL (80-99); MEAN PLATELET VOLUME 9.8 fL (9.0-12.2); MONOCYTES # (AUTO) 0.7 10^3/uL (0.0-1.0); MONOCYTES % (AUTO) 10 % (0-12); NEUTROPHILS # (AUTO) 5.4 10^3/uL (1.8-7.8); NEUTROPHILS % (AUTO) 76 % (42-75); PLATELET COUNT 142 10^3/uL (130-400); WHITE BLOOD COUNT 7.1 10^3/uL (4.3-11.0)
[2022-12-14 08:19] LABS: ALBUMIN 3.1 GM/DL (3.2-4.5); BILIRUBIN,TOTAL 0.7 MG/DL (0.1-1.0); CREATININE SERUM 1.09 MG/DL (0.60-1.30); TOTAL PROTEIN 5.3 GM/DL (6.4-8.2)
[2022-12-14] MEDS: FUROSEMIDE 20 MG (LASIX) TAB PO SCH (08:53)
[2022-12-14] MEDS: LORATADINE (CLARITIN) 10 MG TAB PO SCH (08:53)
[2022-12-14] MEDS: KCL 10 MEQ TAB (MICRO K) PO SCH (08:53)
[2022-12-14] MEDS: VITAMIN D3 25 MCG (1,000 UNITS) TABLET PO SCH ×2 (08:53→21:06)
[2022-12-14] MEDS: PANTOPRAZOLE 40 MG (PROTONIX) VIAL IV SCH (08:53)
[2022-12-14] MEDS: OXYBUTYNIN (DITROPAN) 5 MG TAB PO SCH ×2 (08:53→21:06)
[2022-12-14] MEDS: BETAMETHASONE DIPRO (AUGMENTED) 0.05% CREAM 15 GM TOP SCH ×2 (08:54→21:07)
[2022-12-14] MEDS: SENNOSIDES 8.6 MG (SENOKOT) TAB PO SCH ×2 (08:59→21:06)
[2022-12-14] MEDS: polyethylene glycoL POWDER 17 GM (MIRALAX) PACK PO SCH (08:59)
[2022-12-14] MEDS: DOCUSATE SODIUM 100 MG (COLACE) CAP PO SCH ×2 (09:00→21:06)
--- NOTE | 2022-12-14 09:23 | Cardiology Progress Note ---
Subjective Date Seen by Provider: Dec 14, 2022 Time Seen by Provider: 09:22 Subjective/Events-last exam Patient was seen at bedside, sitting comfortably, feeling better No new complaint. Review of Systems General: No Chills, No Night Sweats; Fatigue; No Malaise, No Appetite, No Other HEENT: No Head Aches, No Visual Changes, No Eye Pain, No Ear Pain, No Dysphasia, No Sinus Congestion, No Post Nasal Drip, No Sore Throat, No Other Pulmonary: No Dyspnea, No Cough, No Pleuritic Chest Pain, No Other Cardiovascular: Edema; No: Chest Pain, Palpitations, Orthopnea, Paroxysmal Noc. Dyspnea, Lt Headedness, Other Objective-Cardiology Exam Last Set of Vital Signs Vital Signs 12/10/22 12/14/22 08:18 07:58 Temp 36.1 Pulse 94 Resp 20 B/P (MAP) 118/57 (77) Pulse Ox 95 O2 Delivery High Flow N/C O2 Flow Rate 1.00 FiO2 21 I&O Intake and Output 12/14/22 00:00 Intake Total 1850 ml Balance 1850 ml Intake Oral 1540 ml Other 310 ml # Voids 6 # Bowel Movements 4 General: Alert, Oriented X3, Cooperative, No Acute Distress HEENT: Atraumatic, EOMI Neck: Supple, No Thyromegaly Lungs: Clear to Auscultation, Normal Air Movement Heart: Regular Rate, Normal S1, Normal S2, No Murmurs Abdomen: Normal Bowel Sounds, Soft, No Tenderness Extremities: No Clubbing, No Cyanosis, No Edema Skin: No Rashes, No Breakdown Neuro: Normal Speech, Normal Tone, Sensation Intact Psych/Mental Status: Mental Status NL Results Lab Laboratory Tests 12/13/22 15:35 12/14/22 07:50 A/P-Cardiology Admission Diagnosis GI bleed Anemia Non-ST elevation myocardial infarction Hypertension Assessment/Plan GIB with anemia Status posttransfusion of 2 units of packed RBCs, hemoglobin is better Continue to monitor closely. Chest pain, probably secondary to severe anemia and coronary artery disease Reporting improvement, no further episodes of chest pain, continue to monitor CAD - Cardiac cath of 12-02-22: Left main coronary artery: Ok; Left anterior descending coronary artery: Long, up to 90% in ostial and prox LAD; Left circumflex coronary artery: Long, up to 80 in prox portion of a large OM, and 80% distal left circumflex; Right coronary artery: Dominant with up to 80 distal (but prox to PDA and PL). LVEDP 20 mmHg. LVEF 60% - referred to [facility] for eval for CABG - CV Surg felt coronaries to be too small for bypass, referred to interventional cardiology (Dr Ely) who has advised medical therapy as an initial step DM II, managed and followed by primary care team Hyperlipidemia, continue to monitor Hypertension, continue to monitor Non-Hodgkin's Lymphoma - following with FARRUKH Solorio MD Dec 14, 2022 09:23
[2022-12-14] MEDS: RT-ALBUTEROL SULF 2.5 MG/3 ML PRE-MIX VIAL INH SCH ×2 (09:31→21:01)
[2022-12-14] MEDS: LACTATED RINGERS 1,000 ML IV SCH (10:39)
--- NOTE | 2022-12-14 11:20 | Progress Note - Surgery ---
JONO LEO 12/14/22 1120: Subjective Date Seen by a Provider: Dec 14, 2022 Time Seen by a Provider: 07:30 Subjective/Events-last exam Patient is seen laying upright in bed, son at bedside. Patient reports that she feels greatly improved from yesterday. She is back on room air this morning and has maintained good O2 sats and has not had any further SOB. Patient underwent a GI bleed scan yesterday which did visualize any areas of active bleeding. Patient received two units of PRBCs yesterday morning. Her Hg was measured that afternoon to be 8.5 and measures at 8.5 this morning. Patient has no new complaints. Review of Systems General: No Chills, No Night Sweats HEENT: No Head Aches, No Visual Changes Pulmonary: No Dyspnea; Cough (slight dry cough, pt reports started after receiving her breathing treatment today) Cardiovascular: No: Chest Pain, Palpitations Gastrointestinal: No: Nausea, Vomiting, Abdominal Pain Genitourinary: No Dysuria, No Hematuria Musculoskeletal: No: neck pain, back pain Neurological: No: Weakness, Numbness Unable to obtain due to patient's condition. Objective Exam Vital Signs Date Time Temp Pulse Resp B/P (MAP) Pulse Ox O2 Delivery O2 Flow Rate FiO2 12/14/22 09:35 Room Air 0.00 12/14/22 09:31 97 Nasal Cannula 1.00 12/14/22 07:58 36.1 94 20 118/57 (77) 95 High Flow N/C 1.00 12/14/22 07:00 81 12/14/22 03:46 36.3 91 16 105/55 (72) 95 High Flow N/C 1.00 12/14/22 01:00 82 12/14/22 00:12 36.8 93 16 105/51 (69) 95 High Flow N/C 1.00 12/13/22 21:36 36.6 18 97 12/13/22 19:55 Nasal Cannula 2.00 12/13/22 19:16 36.2 95 20 128/58 (81) 98 Nasal Cannula 3.00 12/13/22 19:00 107 12/13/22 15:50 36.2 95 17 123/57 (79) 94 Room Air 12/13/22 12:30 36.5 90 14 105/53 96 Nasal Cannula 1.00 12/13/22 12:01 96 12/13/22 11:31 36.5 90 18 128/61 (83) 96 Nasal Cannula 3.00 I & O 12/14/22 07:00 Intake Total 1600 ml Output Total 900 ml Balance 700 ml Capillary Refill : Less Than 3 Seconds General Appearance: No Apparent Distress, WD/WN, Obese HEENT: Pale Conjunctivae (L) (improved from yesterday), Pale Conjunctivae (R) (improved from yesterday) Neck: Non Tender, Supple Respiratory: Chest Non Tender, Lungs Clear, No Accessory Muscle Use Cardiovascular: Regular Rate, Rhythm, No Murmur, Normal Peripheral Pulses, Tachycardia Peripheral Pulses: 2+ Dorsalis Pedis (R), 2+ Left Dors-Pedis (L), 2+ Radial Pulses (R), 2+ Radial Pulses (L) Gastrointestinal: non tender, soft Extremity: Normal Capillary Refill, Pedal Edema (Pt states chronic issue) Neurologic/Psychiatric: Alert, Oriented x3 Skin: Warm/Dry, Pallor (Improved from yesterday) Lymphatic: No Adenopathy Results Lab Laboratory Tests 12/13/22 15:35: Hemoglobin 8.5#L, Hematocrit 25L 12/14/22 07:50: Hemoglobin 8.5L, Hematocrit 26L, White Blood Count 7.1, Red Blood Count 2.88L, Mean Corpuscular Volume 89, Mean Corpuscular Hemoglobin 30, Mean Corpuscular Hemoglobin Concent 33, Red Cell Distribution Width 16.0H, Platelet Count 142, Mean Platelet Volume 9.8, Immature Granulocyte % (Auto) 0, Neutrophils (%) (Auto) 76H, Lymphocytes (%) (Auto) 14, Monocytes (%) (Auto) 10, Eosinophils (%) (Auto) 0, Basophils (%) (Auto) 0, Neutrophils # (Auto) 5.4, Lymphocytes # (Auto) 1.0, Monocytes # (Auto) 0.7, Eosinophils # (Auto) 0.0, Basophils # (Auto) 0.0, Immature Granulocyte # (Auto) 0.0, Sodium Level 138, Potassium Level 4.0, Chloride Level 106, Carbon Dioxide Level 22, Anion Gap 10, Blood Urea Nitrogen 18, Creatinine 1.09, Estimat Glomerular Filtration Rate 51, BUN/Creatinine Ratio 17, Glucose Level 240H, Calcium Level 9.0, Corrected Calcium 9.7, Total Bilirubin 0.7, Aspartate Amino Transf (AST/SGOT) 126H, Alanine Aminotransferase (ALT/SGPT) 38, Alkaline Phosphatase 41, Total Protein 5.3L, Albumin 3.1L Microbiology 12/11/22 MRSA Screen - Final, Complete MRSA not isolated Assessment/Plan Assessment/Plan Assessment/Plan GI bleed Diverticulosis Anemia Patient underwent GI bleeding scan yesterday, did not show any areas of active bleeding Hg measured at 8.5 this AM, will continue to monitor, transfuse if needed Currently on clears Continue IV protonix Clinical Quality Measures DVT/VTE Risk/Contraindication: Contraindications-Pharm: Other *list below* Other: BRADY Otto DO 12/14/22 1330: Subjective Time Seen by a Provider: 11:36 Subjective/Events-last exam Pt seen and examined, states she feels better than yesterday. Review of Systems General: Fatigue Pulmonary: No Dyspnea; Cough (slight dry cough, pt reports started after receiv ing her breathing treatment today) Cardiovascular: No: Chest Pain, Palpitations Gastrointestinal: No: Nausea, Vomiting, Abdominal Pain Objective Exam General Appearance: No Apparent Distress, Obese HEENT: Pale Conjunctivae (L) (improved from yesterday), Pale Conjunctivae (R) (improved from yesterday) Respiratory: Chest Non Tender, Lungs Clear, Normal Breath Sounds, No Accessory Muscle Use, No Respiratory Distress Cardiovascular: Regular Rate, Rhythm, No Murmur Gastrointestinal: non tender, soft Extremity: No Calf Tenderness, Pedal Edema (Pt states chronic issue) Neurologic/Psychiatric: Alert, Oriented x3 Skin: Warm/Dry, Pallor (Improved from yesterday) Assessment/Plan Assessment/Plan Assessment/Plan GI bleed Diverticulosis Anemia Patient underwent GI bleeding scan yesterday, did not show any areas of active bleeding Hg measured at 8.5 this AM, will continue to monitor, transfuse if needed Currently on clears Continue IV protonix Supervisory-Addendum Brief Verification & Attestation Participated in pt care: history, MDM, physical Personally performed: exam, history, MDM, supervision of care Care discussed with: Medical Student Procedures: n/a Verification and Attestation of Medical Student E/M Service A medical student performed and documented this service. I then reviewed and verified all information documented by the medical student and made modifications to such information, when appropriate. I personally performed a physical exam, medical decision making and then discussed any differences between the notes and made revisions as necessary to create one note. Brady Reyes , 12/14/22 , 13:30 JONO LEO Dec 14, 2022 11:20 BRADY REYES DO Dec 14, 2022 13:30
[2022-12-14 11:52] VITALS: BP 106/52
--- NOTE | 2022-12-14 13:24 | Progress Note - Hospitalist ---
CYNTHIA BARRON 12/14/22 1324: Subjective HPI/CC On Admission Date Seen by Provider: Dec 14, 2022 Time Seen by Provider: 08:15 Subjective/Events-last exam Pt is doing well and improving. Pt states she no longer has chest pain. Pt hasn't had a bowel movement since yesterday. General Surgery ordered Tech99 w hich indicated that there were no active bleeds present. Pt denies Fever, Chills, N/V/D, SOB, Chest Pain and abdominal pain. Review of Systems General: No Chills Pulmonary: No Dyspnea Cardiovascular: No: Chest Pain Gastrointestinal: No: Nausea, Vomiting, Abdominal Pain, Diarrhea Neurological: Weakness (Improved) Objective Exam Vital Signs Vital Signs Date Time Temp Pulse Resp B/P (MAP) Pulse Ox O2 Delivery O2 Flow Rate FiO2 12/14/22 12:42 85 12/14/22 11:52 36.6 20 106/52 (70) 91 Room Air 12/14/22 09:35 0.00 12/10/22 08:18 21 Capillary Refill : Less Than 3 Seconds General Appearance: No Apparent Distress Respiratory: Chest Non Tender, Lungs Clear, Normal Breath Sounds Cardiovascular: Regular Rate, Rhythm, No Murmur, Normal Peripheral Pulses Gastrointestinal: Normal Bowel Sounds, Non Tender, Soft Extremity: Swelling (b/l 2+ pitting LE) Neurologic/Psychiatric: Alert, Oriented x3 Skin: Normal Color, Warm/Dry Results/Procedures Lab Laboratory Tests 12/13/22 15:35 12/14/22 07:50 Patient resulted labs reviewed. Assessment/Plan Assessment and Plan Assess & Plan/Chief Complaint Leonora Leger is a 82yo male presenting due to Anemia Secondary to Acute GI Bleed of Unknown Source Anemia Secondary to Acute GI Bleed of Unknown Source EGD/Colonoscopy - Diverticulosis Negative Tech99 Scan: Highly sensitive for active GI bleed. IV Fluid Replacement 2 Units Blood Transfused this AM, Due to Hgb being 6.5 and pt having known Cardiovascular Disease Continue to monitor Volume Overload Continue Lasix CAD Aspirin Held; Will restart when bleed stops Diabetes Mellitus Insulin Sliding Scale Continue Pioglitazone Hyperlipidemia HTN Continue to monitor Blood Pressure Continue Carvedilol Hypothyroidism Continue Levothyroxine Clinical Quality Measures DVT/VTE Risk/Contraindication: Contraindications-Pharm: Other *list below* Other: JACQUES Hidalgo MD 12/14/22 1630: Subjective HPI/CC On Admission Time Seen by Provider: 11:40 Assessment/Plan Assessment and Plan Assess & Plan/Chief Complaint Hemoglobin stable. No further bloody stools. No chest pain or shortness of breath. Surgery and Cardiology following. PT/OT ordered. Diagnosis/Problems Diagnosis/Problems (1) GI bleeding Status: Acute (2) Acute blood loss anemia Status: Acute (3) Chest discomfort Status: Acute (4) Volume overload Status: Acute Qualifiers: Qualified Codes: E87.70 - Fluid overload, unspecified (5) HTN (hypertension) Status: Acute (6) T2DM (type 2 diabetes mellitus) Status: Chronic (7) Obesity Status: Chronic Supervisory-Addendum Brief Verification & Attestation Participated in pt care: history, MDM, physical Personally performed: exam, history, MDM, supervision of care Care discussed with: Medical Student Procedures: n/a Results interpretation: Verified all documentation A medical student performed and documented this service in my presence. I reviewed and verified all information documented by the medical student and made modifications to such information, when appropriate. I personally performed the physical exam and medical decision making. CYNTHIA BARRON Dec 14, 2022 13:24 JACQUES GRIGSBY MD Dec 14, 2022 16:30
[2022-12-14 15:41] VITALS: BP 100/55
[2022-12-14 19:16] VITALS: BP 108/55
[2022-12-15] VITALS (13 sets, daily range): BP systolic 90–114; BP diastolic 49–61
[2022-12-15] MEDS: LEVOTHYROXINE 75 MCG (LEVOTHROID) TABLET PO SCH (06:10)
[2022-12-15] MEDS: MULTIVIT W/MINERALS TAB (THERAGRAN M) PO SCH (06:10)
[2022-12-15] MEDS: PIOGLITAZONE 30MG (ACTOS) TAB PO SCH (06:11)
[2022-12-15 06:15] LABS: BASOPHILS % (AUTO) 0 % (0-10); EOSINOPHILS # (AUTO) 0.1 10^3/uL (0.0-0.3); EOSINOPHILS % (AUTO) 2 % (0-10); HEMATOCRIT 22 % (35-52); HEMOGLOBIN 7.2 g/dL (11.5-16.0); LYMPHOCYTES # (AUTO) 0.8 10^3/uL (1.0-4.0); LYMPHOCYTES % (AUTO) 19 % (12-44); MEAN CORPUSCULAR HEMOGLOBIN 29 pg (25-34); MEAN CORPUSCULAR HGB CONC 32 g/dL (32-36); MEAN CORPUSCULAR VOLUME 91 fL (80-99); MEAN PLATELET VOLUME 10.1 fL (9.0-12.2); MONOCYTES # (AUTO) 0.3 10^3/uL (0.0-1.0); MONOCYTES % (AUTO) 8 % (0-12); NEUTROPHILS % (AUTO) 70 % (42-75); PLATELET COUNT 119 10^3/uL (130-400); SMEAR SCAN COMMENT YES; WHITE BLOOD COUNT 4.2 10^3/uL (4.3-11.0)
[2022-12-15] MEDS: RT-ALBUTEROL SULF 2.5 MG/3 ML PRE-MIX VIAL INH SCH ×2 (06:37→19:17)
--- NOTE | 2022-12-15 07:11 | Progress Note - Surgery ---
[facility] 12/15/22 0711: Subjective Date Seen by a Provider: Dec 15, 2022 Time Seen by a Provider: 07:06 Subjective/Events-last exam Today she is lying comfortably, upright in bed. She has not had any BMs overnight, no rectal bleeding. Has a slight cough and quite a bit of sneezing she attributes to allergies. Denies CP, SOB, nausea/vomiting, fevers at this time. Review of Systems General: No Night Sweats; Appetite HEENT: No Head Aches, No Visual Changes Pulmonary: No Dyspnea; Cough; No Pleuritic Chest Pain Cardiovascular: No: Chest Pain, Palpitations Gastrointestinal: No: Nausea, Vomiting, Abdominal Pain Genitourinary: No Dysuria, No Frequency Musculoskeletal: No: neck pain, shoulder pain Neurological: No: Weakness, Numbness Objective Exam Vital Signs Date Time Temp Pulse Resp B/P (MAP) Pulse Ox O2 Delivery O2 Flow Rate FiO2 12/15/22 06:37 99 Room Air 0.00 12/15/22 04:02 36.2 84 16 98/54 (69) 93 Room Air 12/15/22 01:00 80 12/15/22 00:26 36.6 84 16 98/52 (67) 91 Room Air 12/14/22 21:17 98 Room Air 0.00 12/14/22 21:01 98 Room Air 0.00 12/14/22 19:16 36.8 97 19 108/55 (72) 93 Room Air 12/14/22 19:00 94 12/14/22 15:41 36.2 85 18 100/55 (70) 91 Room Air 12/14/22 12:42 85 12/14/22 11:52 36.6 81 20 106/52 (70) 91 Room Air 12/14/22 09:35 Room Air 0.00 12/14/22 09:31 97 Nasal Cannula 1.00 12/14/22 08:00 Room Air 12/14/22 07:58 36.1 94 20 118/57 (77) 95 High Flow N/C 1.00 I & O 12/15/22 06:59 Intake Total 2520 ml Output Total 800 ml Balance 1720 ml Capillary Refill : Less Than 3 Seconds General Appearance: No Apparent Distress, WD/WN HEENT: PERRL/EOMI, Moist Mucous Membranes Neck: Non Tender, Supple Respiratory: Chest Non Tender, Lungs Clear, Normal Breath Sounds, No Accessory Muscle Use, No Respiratory Distress Cardiovascular: Regular Rate, Rhythm, No Murmur, Normal Peripheral Pulses Peripheral Pulses: 2+ Radial Pulses (R), 2+ Radial Pulses (L) Gastrointestinal: normal bowel sounds, non tender, soft Extremity: Normal Capillary Refill, Swelling (b/l 1+ pitting LE) Neurologic/Psychiatric: Alert, Oriented x3, Normal Mood/Affect Skin: Normal Color, Warm/Dry Lymphatic: No Adenopathy Results Lab Laboratory Tests 12/14/22 07:50: White Blood Count 7.1, Red Blood Count 2.88L, Hemoglobin 8.5L, Hematocrit 26L, Mean Corpuscular Volume 89, Mean Corpuscular Hemoglobin 30, Mean Corpuscular Hemoglobin Concent 33, Red Cell Distribution Width 16.0H, Platelet Count 142, Mean Platelet Volume 9.8, Immature Granulocyte % (Auto) 0, Neutrophils (%) (Auto) 76H, Lymphocytes (%) (Auto) 14, Monocytes (%) (Auto) 10, Eosinophils (%) (Auto) 0, Basophils (%) (Auto) 0, Neutrophils # (Auto) 5.4, Lymphocytes # (Auto) 1.0, Monocytes # (Auto) 0.7, Eosinophils # (Auto) 0.0, Basophils # (Auto) 0.0, Immature Granulocyte # (Auto) 0.0, Sodium Level 138, Potassium Level 4.0, Chloride Level 106, Carbon Dioxide Level 22, Anion Gap 10, Blood Urea Nitrogen 18, Creatinine 1.09, Estimat Glomerular Filtration Rate 51, BUN/Creatinine Ratio 17, Glucose Level 240H, Calcium Level 9.0, Corrected Calcium 9.7, Total Bilirubin 0.7, Aspartate Amino Transf (AST/SGOT) 126H, Alanine Aminotransferase (ALT/SGPT) 38, Alkaline Phosphatase 41, Total Protein 5.3L, Albumin 3.1L 12/15/22 06:03: White Blood Count 4.2L, Red Blood Count 2.45L, Hemoglobin 7.2L, Hematocrit 22L, Mean Corpuscular Volume 91, Mean Corpuscular Hemoglobin 29, Mean Corpuscular Hemoglobin Concent 32, Red Cell Distribution Width 16.3H, Platelet Count 119L, Mean Platelet Volume 10.1, Immature Granulocyte % (Auto) 0, Neutrophils (%) (Auto) 70, Lymphocytes (%) (Auto) 19, Monocytes (%) (Auto) 8, Eosinophils (%) (Auto) 2, Basophils (%) (Auto) 0, Neutrophils # (Auto) 3.0, Lymphocytes # (Auto) 0.8L, Monocytes # (Auto) 0.3, Eosinophils # (Auto) 0.1, Basophils # (Auto) 0.0, Immature Granulocyte # (Auto) 0.0, Percent Immature Platelet Fraction 2.8, Smear Scan YES Microbiology 12/11/22 MRSA Screen - Final, Complete MRSA not isolated Assessment/Plan Assessment/Plan Assessment/Plan GI bleed Diverticulosis Anemia Patient underwent GI bleeding scan 12/13 did not show any areas of active bleeding Hgb down to 7.2 from 8.5, will continue to monitor, transfuse as needed Currently on clears Continue IV protonix Clinical Quality Measures DVT/VTE Risk/Contraindication: Contraindications-Pharm: Other *list below* Other: VARUN Hagan DO 12/15/22 1313: Subjective Subjective/Events-last exam No more bloody bowel movements yesterday/today. Hgb dropped and going to get a unit of PRBC today. No abdominal pain. Slight cough. Denies n/v fever sweats c [place] shortness of breath or chest pain at this time. Objective Exam General Appearance: No Apparent Distress, WD/WN HEENT: PERRL/EOMI, Moist Mucous Membranes Neck: Non Tender, Supple Respiratory: Chest Non Tender, No Accessory Muscle Use, No Respiratory Distress Cardiovascular: Regular Rate, Rhythm, No JVD Gastrointestinal: non tender, soft Extremity: Normal Capillary Refill, Swelling (b/l 1+ pitting LE) Neurologic/Psychiatric: Alert, Oriented x3 Skin: Normal Color, Warm/Dry, Other (left forehead lesions on skin) Lymphatic: No Adenopathy Assessment/Plan Assessment/Plan Assessment/Plan GI bleed Diverticulosis Anemia Patient underwent GI bleeding scan 12/13 did not show any areas of active bleeding Hgb down to 7.2 from 8.5, will continue to monitor, transfuse as needed Currently on clears Continue IV protonix No bloody bm today, if continues to drop consider repeat endoscopy. If stable slowly advance diet. Supervisory-Addendum Brief Verification & Attestation Participated in pt care: history, MDM, physical Personally performed: exam, history, MDM, supervision of care Care discussed with: Medical Student Procedures: n/a Results interpretation: Verified all documentation Verification and Attestation of Medical Student E/M Service A medical student performed and documented this service in my presence. I reviewed and verified all information documented by the medical student and made modifications to such information, when appropriate. I personally performed the physical exam and medical decision making. Varun Forbes, Dec 15, 2022,13:13 MELISA MONAHAN Dec 15, 2022 07:11 VARUN FORBES DO Dec 15, 2022 13:13
[2022-12-15 07:13] LABS: ALBUMIN 2.8 GM/DL (3.2-4.5); POTASSIUM 3.6 MMOL/L (3.6-5.0)
[2022-12-15 07:15] LABS: CALCIUM 8.7 MG/DL (8.5-10.1)
[2022-12-15 07:18] LABS: BILIRUBIN,TOTAL 0.6 MG/DL (0.1-1.0)
[2022-12-15 07:19] LABS: CREATININE SERUM 1.1 MG/DL (0.60-1.30)
[2022-12-15] MEDS: KCL 10 MEQ TAB (MICRO K) PO SCH (08:59)
[2022-12-15] MEDS: VITAMIN D3 25 MCG (1,000 UNITS) TABLET PO SCH ×2 (08:59→21:40)
[2022-12-15] MEDS: OXYBUTYNIN (DITROPAN) 5 MG TAB PO SCH ×2 (08:59→21:39)
[2022-12-15] MEDS: PANTOPRAZOLE 40 MG (PROTONIX) VIAL IV SCH (08:59)
[2022-12-15] MEDS: LACTATED RINGERS 1,000 ML IV SCH (09:00)
[2022-12-15] MEDS: BETAMETHASONE DIPRO (AUGMENTED) 0.05% CREAM 15 GM TOP SCH ×2 (09:01→21:39)
[2022-12-15] MEDS: LORATADINE (CLARITIN) 10 MG TAB PO SCH (09:01)
[2022-12-15] MEDS: FUROSEMIDE 20 MG (LASIX) TAB PO SCH (09:06)
--- NOTE | 2022-12-15 09:08 | Physical Therapy Evaluation ---
PT Evaluation-General Medical Diagnosis Admission Date Dec 11, 2022 at 07:00 Medical Diagnosis: acute blood loss/rectal bleed Onset Date: Dec 11, 2022 Therapy Diagnosis Therapy Diagnosis: generalized weakness/debility Height/Weight Height (Feet): 5 Height (Inches): 8.00 Weight (Pounds): 213 Weight (Ounces): 0.0 Precautions Precautions/Isolations: Contact Isolation Referral Physician: Aiden Reason for Referral: Evaluation/Treatment Medical History Pertinent Medical History: Arthritis, CVA, DM, HTN, Hypothroidism, Lymphoma Current History ER secondary to rectal bleed Reviewed History: Yes Social History Home: Single Level Current Living Status: Children Entry Into Home: Ramp Prior Prior Level of Function SCALE: Activities may be completed with or without assistive devices. 4-Wbwddatizp-czocrdw completes the activity by him/herself with no assistance from a helper. 5-Set-up or Clean-up Assistance-helper sets up or cleans up; patient completes activity. [place] assists only prior to or following the activity. 4-Supervision or Touching Assistance-helper provides verbal cues and/or touching/steadying and/or contact guard assistance as patient completes activity. Assistance may be provided throughout the activity or intermittently. 3-Partial/Moderate Assistance-helper does LESS THAN HALF the effort. [place] lifts, holds or supports trunk or limbs, but provides less than half the effort. 2-Substantial/Maximal Assistance-helper does MORE THAN HALF the effort. [place] lifts or holds trunk or limbs and provides more than half the effort. 8-Uthxhlsiy-vdjyry does ALL the effort. Patient does none of the effort to complete the activity. Or, the assistance of 2 or more helpers is required for the patient to complete the activity. If activity was not attempted, code reason: 7-Patient Refused. 9-Not Applicable-not attempted and the patient did not perform the activity before the current illness, exacerbation or injury. 10-Not Attempted due to Environmental Limitations-(lack of equipment, weather restraints, etc.). 88-Not Attempted due to Medical Conditions or Safety Concerns. Bed Mobility: 6 Transfers (B,C,W/C): 6 Gait: 6 Stairs: 6 Indoor Mobility (Ambulation): Independent Stairs: Independent Prior Devices Use: None PT Evaluation-Current Subjective Patient agrees to PT. Objective Patient Orientation: Normal For Age ROM/Strength ROM Lower Extremities bilateral LE WFL Strength Lower Extremities 3+/5 grossly bilateral LE all planes Integumentary/Posture Bowel Incontinence: No Bladder Incontinence: No Posture WFL Neuromuscular (Tone, Coordination, Reflexes) grossly intact Sensory Vision: Functional Hearing: Functional Transfers Lying to Sitting/Side of Bed(Q: 6 Sit to Stand (QC): 6 Chair/Bqs-jo-Cnqyq Xfer(QC): 6 Gait Mode of Locomotion: Walk Anticipated Mode of Locomotion: Walk Walk 10 feet (QC): 5 Walk 50 ft with 2 Turns(QC): 5 Walk 150 ft (QC): 88 Distance: 100' Gait Assistive Device: FWW Comments/Gait Description very slow/FWW for energy conservation Wheelchair Training Does the Pt Use a Wheelchair?: No Balance Sitting Static: Normal Sitting Dynamic: Normal Standing Static: Fair Standing Dynamic: Fair Assessment/Needs Patient will benefit from skilled PT to address functional strength and mobility to improve current LOF to safely return to home at maximum LOF. Rehab Potential: Fair PT Care Home Goals Care Home Goals PT Care Home Goals Time Frame: Dec 27, 2022 Roll Left & Right (QC): 6 Sit to Lying (QC): 6 Lying-Sitting on Side/Bed(QC): 6 Sit to Stand (QC): 6 Chair/Bxx-le-Fstaq Xfer(QC): 6 Toilet Transfer (QC): 6 Walk 10 feet (QC): 6 Walk 50ft with 2 Turns (QC): 6 Walk 150 ft (QC): 6 PT Plan Problem List Problem List: Activity Tolerance, Functional Strength, Gait, Transfer Treatment/Plan Treatment Plan: Continue Plan of Care Treatment Plan: Education, Functional Activity Timothy, Functional Strength, Gait, Safety, Therapeutic Exercise, Transfers Treatment Duration: Dec 27, 2022 Frequency: 6 times per week Estimated Hrs Per Day: .25 hour per day Patient and/or Family Agrees t: Yes Time Time In: 820 Time Out: 833 DATE: Dec 15, 2022 Total Billed Treatment Time: 13 Total Billed Treatment 1 visit EVModC 13 min SAURAV BROWER PT Dec 15, 2022 09:08
[2022-12-15] MEDS: polyethylene glycoL POWDER 17 GM (MIRALAX) PACK PO SCH (09:15)
[2022-12-15] MEDS: SENNOSIDES 8.6 MG (SENOKOT) TAB PO SCH ×2 (09:15→21:32)
[2022-12-15] MEDS: DOCUSATE SODIUM 100 MG (COLACE) CAP PO SCH ×2 (09:15→21:32)
[2022-12-15] MEDS ORDERED: NS IV 500 ML 500 ML IV SCH (09:15)
[2022-12-15] MEDS ORDERED: NS IV 500 ML 500 ML IV PRN (09:30)
--- NOTE | 2022-12-15 09:30 | Progress Note - Cardiology ---
Cardiology SOAP Progress Note Subjective: Gen weakness and malaise No focal weakness No n/v/d No cp or palp or syncope Poor stamina Shortness of breath with activity Objective: I&O/Vital Signs 12/15/22 12/15/22 12/15/22 12/15/22 00:26 01:00 04:02 06:37 Temp 36.6 36.2 Pulse 84 80 84 Resp 16 16 B/P (MAP) 98/52 (67) 98/54 (69) Pulse Ox 91 93 99 O2 Delivery Room Air Room Air Room Air O2 Flow Rate 0.00 12/15/22 12/15/22 07:13 07:48 Temp 36.4 Pulse 77 75 Resp 18 B/P (MAP) 97/59 (72) Pulse Ox 94 O2 Delivery Room Air 12/14/22 23:59 Intake Total 1220 ml Output Total 500 ml Balance 720 ml Weight (Pounds): 213 Weight (Ounces): 0.0 Weight (Calculated Kilograms): 96.832543 Constitutional: AAO x 3, well-developed, well-nourished Respiratory: No accessory muscle use; chest expansion is symmetric, chest is bilaterally symmetric, other (good, bilateral air entry) Cardiovascular: regular rate-rhythm, S1 and S2, systolic murmur Gastrointestional: No tender; soft; No guarding, No rebound; audible bowel sounds Extremities: swelling (mild, bilat leg swelling); No clubbing, No cyanosis Neurologic/Psychiatric: oriented x 3, other (moves all limbs equally) Skin: rash (mild rash and swelling on L forehead (pt states residual from shingles)) Results/Procedures: Labs Laboratory Tests 12/15/22 06:03: White Blood Count 4.2L, Red Blood Count 2.45L, Hemoglobin 7.2L, Hematocrit 22L, Mean Corpuscular Volume 91, Mean Corpuscular Hemoglobin 29, Mean Corpuscular Hemoglobin Concent 32, Red Cell Distribution Width 16.3H, Platelet Count 119L, Mean Platelet Volume 10.1, Immature Granulocyte % (Auto) 0, Neutrophils (%) (Auto) 70, Lymphocytes (%) (Auto) 19, Monocytes (%) (Auto) 8, Eosinophils (%) (Auto) 2, Basophils (%) (Auto) 0, Neutrophils # (Auto) 3.0, Lymphocytes # (Auto) 0.8L, Monocytes # (Auto) 0.3, Eosinophils # (Auto) 0.1, Basophils # (Auto) 0.0, Immature Granulocyte # (Auto) 0.0, Percent Immature Platelet Fraction 2.8, Sodium Level 138, Potassium Level 3.6, Chloride Level 106, Carbon Dioxide Level 23, Anion Gap 9, Blood Urea Nitrogen 18, Creatinine 1.10, Estimat Glomerular Filtration Rate 51, BUN/Creatinine Ratio 16, Glucose Level 142H, Calcium Level 8.7, Corrected Calcium 9.7, Total Bilirubin 0.6, Aspartate Amino Transf (AST/SGOT) 74H, Alanine Aminotransferase (ALT/SGPT) 29, Alkaline Phosphatase 36L , Total Protein 5.0L, Albumin 2.8L, Smear Scan YES Microbiology 12/11/22 MRSA Screen - Final, Complete MRSA not isolated Laboratory Tests 12/13/22 15:35 12/14/22 07:50 12/15/22 06:03 A/P: Assessment: GIB with anemia - management is by the Hospitalist and Surgical services CAD - Cardiac cath of 12-02-22: Left main coronary artery: Ok; Left anterior descending coronary artery: Long, up to 90% in ostial and prox LAD; Left circumflex coronary artery: Long, up to 80 in prox portion of a large OM, and 80% distal left circumflex; Right coronary artery: Dominant with up to 80 distal (but prox to PDA and PL). LVEDP 20 mmHg. LVEF 60% - referred to [facility] for eval for CABG - CV Surg felt coronaries to be too small for bypass, referred to interventional cardiology (Dr Ely) who has advised medical therapy as an initial step DM II Hyperlipidemia Hypertension Non-Hodgkin's Lymphoma - following with Dr. Torres Plan: * Complex management due to parallel issues of multivessel CAD (needs ASA) and GIB (needs to hold ASA) * We recommend that ASA 81 mg daily be continued as soon as allowed by the Surgical services * We advise Hgb be kept greater than 8.0 d/t severe 3 vessel CAD. We recommend blood transfusions if Hgb falls below 8 * Ok for repeat endoscopy form cardiac standpoint. if needed. Risk reviewed with her * Monitor labs closely * Not suitable for beta- or calcium channel blockers because of relatively low or low normal bp MAXIM WRIGHT MD FACP FACC CCDS Dec 15, 2022 09:30
--- NOTE | 2022-12-15 09:59 | Occupational Therapy Eval ---
OT Evaluation-General/PLF Medical Diagnosis Admission Date Dec 11, 2022 at 07:00 Medical Diagnosis: acute blood loss/rectal bleed Onset Date: Dec 11, 2022 Therapy Diagnosis Therapy Diagnosis: general weakness Height/Weight Height (Feet): 5 Height (Inches): 8.00 Weight (Pounds): 213 Weight (Ounces): 0.0 Precautions Precautions/Isolations: Contact Isolation Weight Bear Status Weight Bearing Restriction: Full Weight Bearing Referral Physician: Aiden Referral Reason: Activity Tolerance, Self Care, Evaluation/Treatment, Strengthening/ROM Medical History Pertinent Medical History: Arthritis, CVA, DM, HTN, Hypothroidism, Lymphoma Additional Medical History shingles Current History Patient to receive 2 units of blood. Social History Home: Single Level Current Living Status: Children Entry Into Home: Ramp ADL-Prior Level of Function SCALE: Activities may be completed with or without assistive devices. 2-Eyehxtfqbi-gnxpmgx completes the activity by him/herself with no assistance from a helper. 5-Set-up or Clean-up Assistance-helper sets up or cleans up; patient completes activity. [place] assists only prior to or following the activity. 4-Supervision or Touching Assistance-helper provides verbal cues and/or touching/steadying and/or contact guard assistance as patient completes activity. Assistance may be provided throughout the activity or intermittently. 3-Partial/Moderate Assistance-helper does LESS THAN HALF the effort. [place] lifts, holds or supports trunk or limbs, but provides less than half the effort. 2-Substantial/Maximal Assistance-helper does MORE THAN HALF the effort. [place] lifts or holds trunk or limbs and provides more than half the effort. 3-Lzwwylhox-webbae does ALL the effort. Patient does none of the effort to complete the activity. Or, the assistance of 2 or more helpers is required for the patient to complete the activity. If activity was not attempted, code reason: 7-Patient Refused. 9-Not Applicable-not attempted and the patient did not perform the activity b efore the current illness, exacerbation or injury. 10-Not Attempted due to Environmental Limitations-(lack of equipment, weather restraints, etc.). 88-Not Attempted due to Medical Conditions or Safety Concerns. Self Care: Independent Functional Cognition: Needed Some Help Patient reports older home w/ tub that is difficult to transfer, has clamp on GB but does not assist for both entry and exit, Patient reports son in installing vertical GB and looking in to a shower chair OT Current Status Subjective UP in chair, agreeable to OT, reports urgencies to void and can not wait for assistance, BSC in room.OT instructs patient to use call light to notify team d/t weakness and fall risk Pain Numeric Pain Scale: 5-Moderate Pain Location Body Site: Face Mental Status/Objective Patient Orientation: Person, Place, Time, Situation Attachments: IV Current Glasses/Contacts: Yes Upper Extremity ROM BUE ROM WFLs reduced joint approximation d/t excessive soft tissue Upper Extremity Coordination INTACT Upper Extremity Sensation INTACT PER PATIENT REPORT Upper Extremity Strength -4/5 BUE GROSSLY ADL-Treatment Eating (QC): 88 (NPO FOR PROCEDURE) Oral Hygiene (QC): 5 Shower/Bathe Self (QC): 3 Upper Body Dressing (QC): 4 Lower Body Dressing (QC): 4 On/Off Footwear (QC): 4 Toileting Hygiene (QC): 4 Education OT Patient Education: Energy conservation, Modified ADL techniques, Progress toward Goal/Update tx plan, Purpose of tx/functional activities, Reviewed precautions, Rehab process, Safety issues, Transfer techniques, Use of adapted equipment Teaching Recipient: Patient Teaching Methods: Demonstration, Discussion Response to Teaching: Verbalize Understanding, Reinforcement Needed OT Fpc Goals Head Librarian Goals Oral Hygiene (QC): 6 Toileting Hygiene (QC): 6 Shower/Bathe Self (QC): 6 Upper Body Dressing (QC): 6 Lower Body Dressing (QC): 6 On/Off Footwear (QC): 6 1=Demonstrate adherence to instructed precautions during ADL tasks. 2=Patient will verbalize/demonstrate understanding of assistive devices/modifications for ADL. 3=Patient will improve strength/tolerance for activity to enable patient to perform ADL's. OT Education/Plan Problem List/Assessment Assessment: Decreased Activ Tolerance, Decreased UE Strength, Impaired Self- Care Skills Discharge Recommendations Plan/Recommendations: Continue POC Equpiment Recommendations-D/C: Bath Chair Treatment Plan/Plan of Care Treatment,Training & Education: Yes Patient would benefit from OT for education, treatment and training to promote independence in ADL's, mobility, safety and/or upper extremity function for ADL's. Plan of Care: ADL Retraining, Functional Mobility, Group Exercise/Act as Ind, UE Funct Exercise/Act Treatment Duration: Dec 20, 2022 Frequency: 3 times per week (3-5 TIMES PER WEEK) Estimated Hrs Per Day: .25 hour per day Rehab Potential: Fair REMAINS IN RECLINER ALL NEEDS MET Time Start Time: :17 Stop Time: 23:00 DATE: Dec 15, 2022 Total Time Billed (hr/min): 23 Billed Treatment Time EVM, ADL 23 MIN KAITY PARMAR OT Dec 15, 2022 09:59
--- NOTE | 2022-12-15 11:24 | Progress Note ---
RAFAEL POZO 12/15/22 1123: Subjective Date Seen by a Provider: Dec 15, 2022 Time Seen by a Provider: 08:20 Subjective/Events-last exam Patient was awake sitting in her chair this morning. Her Hgb this morning is 7.2 despite receiving 4 units pRBC thus far. She reports having a BM this morning and not seeing if there was blood present. Her nurse this morning believes there was some melena present. She denies LH/dizziness, CP, palpitations, SOB, abd pain, N/V/D, numbness/weakness of extremities. She was been seen by surgery already who plans to wait another day and see how she does and reassess need for repeat scopes tomorrow. She has been on clear liquid diet since previous scopes 12/12. Review of Systems General: No Chills; Fatigue HEENT: No Head Aches Pulmonary: No Dyspnea, No Cough Cardiovascular: No: Chest Pain, Palpitations Gastrointestinal: No: Nausea, Vomiting, Abdominal Pain Genitourinary: No Dysuria, No Hematuria Neurological: No: Weakness, Numbness Objective Exam Last Set of Vital Signs Vital Signs Date Time Temp Pulse Resp B/P (MAP) Pulse Ox O2 Delivery O2 Flow Rate FiO2 12/15/22 10:20 36.5 77 20 98/49 97 Room Air 12/15/22 06:37 0.00 12/10/22 08:18 21 Capillary Refill : Less Than 3 Seconds I&O Intake and Output 12/15/22 00:00 Intake Total 1370 ml Output Total 1400 ml Balance -30 ml Intake Oral 1370 ml Output Urine Total 1400 ml # Voids 3 General: Alert, Oriented X3, No Acute Distress HEENT: Atraumatic, EOMI Neck: Supple, No Thyromegaly Lungs: Clear to Auscultation, Normal Air Movement Heart: Regular Rate, No Murmurs Abdomen: Normal Bowel Sounds, Soft, No Tenderness Extremities: No Clubbing, No Cyanosis Skin: No Rashes, No Breakdown Neuro: Normal Gait, Normal Speech Psych/Mental Status: Mental Status NL Results Lab Laboratory Tests 12/15/22 06:03: White Blood Count 4.2L, Red Blood Count 2.45L, Hemoglobin 7.2L, Hematocrit 22L, Mean Corpuscular Volume 91, Mean Corpuscular Hemoglobin 29, Mean Corpuscular Hemoglobin Concent 32, Red Cell Distribution Width 16.3H, Platelet Count 119L, Mean Platelet Volume 10.1, Immature Granulocyte % (Auto) 0, Neutrophils (%) (Auto) 70, Lymphocytes (%) (Auto) 19, Monocytes (%) (Auto) 8, Eosinophils (%) (Auto) 2, Basophils (%) (Auto) 0, Neutrophils # (Auto) 3.0, Lymphocytes # (Auto) 0.8L, Monocytes # (Auto) 0.3, Eosinophils # (Auto) 0.1, Basophils # (Auto) 0.0, Immature Granulocyte # (Auto) 0.0, Percent Immature Platelet Fraction 2.8, Sodium Level 138, Potassium Level 3.6, Chloride Level 106, Carbon Dioxide Level 23, Anion Gap 9, Blood Urea Nitrogen 18, Creatinine 1.10, Estimat Glomerular Filtration Rate 51, BUN/Creatinine Ratio 16, Glucose Level 142H, Calcium Level 8.7, Corrected Calcium 9.7, Total Bilirubin 0.6, Aspartate Amino Transf (AST/SGOT) 74H, Alanine Aminotransferase (ALT/SGPT) 29, Alkaline Phosphatase 36L , Total Protein 5.0L, Albumin 2.8L, Smear Scan YES Microbiology 12/11/22 MRSA Screen - Final, Complete MRSA not isolated Assessment/Plan Assessment/Plan Assess & Plan/Chief Complaint Acute Rectal Bleeding -12/12 EGD/colonoscopy--> no polyps, masses, or ulcerations. Diverticuli throughout colon. No areas indicative of acute bleeding -12/13 Tech99 study -> no acute GI bleed appreciated. -12/15 Unclear where the source of patients GI bleed is. Will continue to monitor with the help of surgery who plans to reassess need for repeat scopes tomorrow. Anemia -(12/10) Hgb 8.9 today down from 10.8 on 12/04. Will monitor and replace with pRBC for Hgb < 8.0 given CAD history. -(12/11) Patient had repeat CBC yesterday afternoon which showed Hgb 7.0. She was given 1 unit pRBC yesterday yesterday. Hgb this morning 7.1. -(12/12) Hgb improved to 8.2 from 7.1 after receiving 1 unit pRBC. -(12/15) Hgb today of 7.1 despite receiving 2 more units pRBC over the weekend (total of 4). Will again transfuse with goal > 8.0 given cardiac history. Insulin Dependent Diabetes -Insulin sliding scale HX CAD -Heart Cath 12/02/[address] Sharma -> Multi-vessel disease. Refferal placed to Dr. Benjamin at [place] to discuss CABG. LVEF of 60% at that time. -Reports seeing a Doctor at [facility] [place] 12/09 and was told she isn't a candidate for CABG due to small vessel size and that they would try medication for a year instead. -Praluent Injectable for HLD. Allergic to statins. -ASA on hold until okay by surgery -Cardiology Consulted with recommendations appreciated Angina -Ongoing and intermittent in nature. Part of what initiated the work-up above. Management per cardiology. HLD HTN Continue Carvedilol 12.5mg PO BID Hypothyroidism -Continue levothyroxine 75 mcg PO QD Diet: NPO DVT proph: SCDs Clinical Quality Measures Admission Status Admission Dx Acute Rectal Bleeding -upper vs. lower GI bleed. 2nd to diverticulosis vs. internal hemorrhoid vs mass vs upper GI. -No history of Blood thinner use and normal coag study. -NPO. Hold ASA until bleeding stops. Zofran for nausea. Consult Surg Anemia -Hgb 8.9 today down from 10.8 on 12/04. Will monitor and replace with pRBC for Hgb < 8.0 given CAD history. Insulin Dependent Diabetes -Insulin sliding scale HX CAD -Heart Cath 12/02/[address] Sharma -> Multi-vessel disease. Refferal placed to Dr. Benjamin at [place] to discuss CABG. LVEF of 60% at that time. -Praluent Injectable for HLD. Allergic to statins. -Cardiology Consulted with recommendations appreciated HLD HTN -Will monitor BP and restart home meds as able. Hypothyroidism -Continue home medications Diet: NPO DVT proph: Lovenox & SCDs DVT/VTE Risk/Contraindication: Contraindications-Pharm: Other *list below* Other: BREANA Fritz DO 12/16/22 0447: Supervisory-Addendum Brief Verification & Attestation Participated in pt care: history, MDM, physical Personally performed: exam, history, MDM, supervision of care Care discussed with: Medical Student Procedures: n/a Results interpretation: Verified all documentation Verification and Attestation of Medical Student E/M Service A medical student performed and documented this service in my presence. I reviewed and verified all information documented by the medical student and made modifications to such information, when appropriate. I personally performed the physical exam and medical decision making. Breana Blount, Dec 16, 2022,04:47 RAFAEL POZO Dec 15, 2022 11:23 BREANA BLOUNT DO Dec 16, 2022 04:47
[2022-12-15 14:07] LABS: HEMOGLOBIN 8.1 g/dL (11.5-16.0)
[2022-12-16 04:03] VITALS: BP 108/56
[2022-12-16] MEDS: LACTATED RINGERS 1,000 ML IV SCH (05:39)
[2022-12-16] MEDS: LEVOTHYROXINE 75 MCG (LEVOTHROID) TABLET PO SCH (06:22)
[2022-12-16] MEDS: PIOGLITAZONE 30MG (ACTOS) TAB PO SCH (06:22)
[2022-12-16] MEDS: MULTIVIT W/MINERALS TAB (THERAGRAN M) PO SCH (06:22)
[2022-12-16 06:37] LABS: HEMATOCRIT 27 % (35-52); HEMOGLOBIN 8.9 g/dL (11.5-16.0); MEAN CORPUSCULAR HGB CONC 33 g/dL (32-36)
--- NOTE | 2022-12-16 06:37 | Progress Note - Surgery ---
TANIYAMELISA 12/16/22 0637: Subjective Date Seen by a Provider: Dec 16, 2022 Time Seen by a Provider: 06:32 Subjective/Events-last exam Today pt reports she is feeling better. She had 2 BMs yesterday without blood but none since. Tolerating clears well. She does note she is feeling "puffy" t cj. Denies nausea, CP, SOB, fevers. Hgb today was 8.9 up from 8.1 yesterday. Review of Systems General: No Chills, No Night Sweats HEENT: No Head Aches, No Visual Changes Pulmonary: No Dyspnea, No Cough Cardiovascular: No: Chest Pain, Palpitations Gastrointestinal: No: Nausea, Vomiting Genitourinary: No Dysuria, No Frequency Musculoskeletal: No: neck pain, shoulder pain Neurological: No: Weakness, Numbness Objective Exam Vital Signs Date Time Temp Pulse Resp B/P (MAP) Pulse Ox O2 Delivery O2 Flow Rate FiO2 12/16/22 04:03 36.8 74 16 108/56 (73) 95 Room Air 12/16/22 01:14 80 12/15/22 23:46 36.2 80 16 110/55 (73) 93 Room Air 12/15/22 20:36 36.3 79 18 114/56 (75) 96 Room Air 12/15/22 19:45 97 Room Air 12/15/22 19:25 80 12/15/22 19:18 95 Room Air 12/15/22 19:01 36.5 81 18 111/53 Room Air 12/15/22 16:40 36.5 76 18 97/49 95 Room Air 12/15/22 16:25 36.2 78 20 106/53 (70) 94 Room Air 12/15/22 16:21 36.2 77 18 106/53 94 Room Air 12/15/22 12:59 82 12/15/22 12:52 36.4 80 18 90/55 93 Room Air 12/15/22 11:26 36.6 75 18 99/61 (74) 95 Room Air 12/15/22 10:20 36.5 77 20 98/49 97 Room Air 12/15/22 09:59 36.2 80 20 97/51 95 Room Air 12/15/22 08:00 97 Room Air 12/15/22 07:48 36.4 75 18 97/59 (72) 94 Room Air 12/15/22 07:13 77 12/15/22 06:37 99 Room Air 0.00 I & O 12/16/22 07:00 Intake Total 2280 ml Output Total 450 ml Balance 1830 ml Capillary Refill : Less Than 3 Seconds General Appearance: No Apparent Distress, WD/WN HEENT: PERRL/EOMI, Moist Mucous Membranes Neck: Non Tender, Supple Respiratory: Chest Non Tender, No Accessory Muscle Use, No Respiratory Distress Cardiovascular: No JVD, Normal Peripheral Pulses Peripheral Pulses: 2+ Radial Pulses (R), 2+ Radial Pulses (L) Gastrointestinal: non tender, soft Extremity: Normal Capillary Refill, Swelling (b/l 1+ pitting LE, minimal edema of hands and UE) Neurologic/Psychiatric: Alert, Oriented x3 Skin: Normal Color, Warm/Dry, Other (left forehead lesions on skin) Lymphatic: No Adenopathy Results Lab Laboratory Tests 12/15/22 12:32: Lab Scanned Report Transfusion Reaction Form 12/15/22 13:54: Hemoglobin 8.1L, Hematocrit 25L Microbiology 12/11/22 MRSA Screen - Final, Complete MRSA not isolated Assessment/Plan Assessment/Plan Assessment/Plan GI bleed Diverticulosis Anemia S/p 6 units PRBC transfused Patient underwent GI bleeding scan 12/13 did not show any areas of active bleeding Hgb at 8.9 this AM up from 8.1, will continue to monitor, transfuse as needed Currently on clears and tolerating well Continue IV protonix If hgb continues to drop consider repeat endoscopy Advance diet slowly to softs given improved Hgb Clinical Quality Measures DVT/VTE Risk/Contraindication: Contraindications-Pharm: Other *list below* Other: VARUN Hagan DO 12/16/22 2222: Subjective Subjective/Events-last exam Having bowel movements that look normal. Hgb up to 8.9. No abdominal pain. No new complaints. Denies n/v fever sweats chills shortness of breath or chest pain. Objective Exam General Appearance: No Apparent Distress, WD/WN HEENT: PERRL/EOMI, Normal ENT Inspection Neck: Non Tender, Supple Respiratory: Chest Non Tender, No Accessory Muscle Use, No Respiratory Distress Cardiovascular: Regular Rate, Rhythm, No JVD Gastrointestinal: non tender, soft Extremity: Normal Capillary Refill, Non Tender, Swelling (b/l 1+ pitting LE, minimal edema of hands and UE) Neurologic/Psychiatric: Alert, Oriented x3 Skin: Normal Color, Warm/Dry, Other (left forehead lesions on skin) Lymphatic: No Adenopathy Assessment/Plan Assessment/Plan Assessment/Plan GI bleed Diverticulosis Anemia S/p 6 units PRBC transfused Patient underwent GI bleeding scan 12/13 did not show any areas of active bleeding Hgb at 8.9 this AM up from 8.1, will continue to monitor, transfuse as needed Currently on clears and tolerating well Continue IV protonix If hgb continues to drop consider repeat endoscopy Advance diet slowly to softs given improved Hgb Supervisory-Addendum Brief Verification & Attestation Participated in pt care: history, MDM, physical Personally performed: exam, history, MDM, supervision of care Care discussed with: Medical Student Procedures: n/a Results interpretation: Verified all documentation Verification and Attestation of Medical Student E/M Service A medical student performed and documented this service in my presence. I reviewed and verified all information documented by the medical student and made modifications to such information, when appropriate. I personally performed the physical exam and medical decision making. Varun Forbes, Dec 16, 2022,22:22 MELISA MONAHAN Dec 16, 2022 06:37 VARUN FORBES DO Dec 16, 2022 22:22
[2022-12-16 06:39] LABS: BASOPHILS % (AUTO) 1 % (0-10); EOSINOPHILS # (AUTO) 0.2 10^3/uL (0.0-0.3); EOSINOPHILS % (AUTO) 5 % (0-10); LYMPHOCYTES # (AUTO) 0.6 10^3/uL (1.0-4.0); LYMPHOCYTES % (AUTO) 15 % (12-44); MEAN CORPUSCULAR HEMOGLOBIN 30 pg (25-34); MEAN CORPUSCULAR VOLUME 89 fL (80-99); MEAN PLATELET VOLUME 10.6 fL (9.0-12.2); MONOCYTES # (AUTO) 0.3 10^3/uL (0.0-1.0); MONOCYTES % (AUTO) 8 % (0-12); NEUTROPHILS # (AUTO) 2.9 10^3/uL (1.8-7.8); NEUTROPHILS % (AUTO) 71 % (42-75); PLATELET COUNT 115 10^3/uL (130-400)
[2022-12-16 07:33] LABS: ALBUMIN 2.9 GM/DL (3.2-4.5); BILIRUBIN,TOTAL 0.7 MG/DL (0.1-1.0); CALCIUM 8.7 MG/DL (8.5-10.1); CREATININE SERUM 1.03 MG/DL (0.60-1.30); POTASSIUM 3.5 MMOL/L (3.6-5.0); TOTAL PROTEIN 5.2 GM/DL (6.4-8.2)
[2022-12-16 07:44] VITALS: BP 117/57
[2022-12-16] MEDS: BETAMETHASONE DIPRO (AUGMENTED) 0.05% CREAM 15 GM TOP SCH ×2 (08:30→21:23)
[2022-12-16] MEDS: PANTOPRAZOLE 40 MG (PROTONIX) TAB PO SCH (08:30)
[2022-12-16] MEDS: FUROSEMIDE 20 MG (LASIX) TAB PO SCH (08:30)
[2022-12-16] MEDS: OXYBUTYNIN (DITROPAN) 5 MG TAB PO SCH ×2 (08:30→21:21)
[2022-12-16] MEDS: LORATADINE (CLARITIN) 10 MG TAB PO SCH (08:30)
[2022-12-16] MEDS: KCL 10 MEQ TAB (MICRO K) PO SCH (08:30)
[2022-12-16] MEDS: VITAMIN D3 25 MCG (1,000 UNITS) TABLET PO SCH ×2 (08:30→21:21)
--- NOTE | 2022-12-16 09:19 | Cardiology Progress Note ---
Subjective Date Seen by Provider: Dec 16, 2022 Time Seen by Provider: 09:18 Subjective/Events-last exam Patient was seen at bedside, sitting comfortably, feeling better. Objective-Cardiology Exam Last Set of Vital Signs Vital Signs 12/10/22 12/15/22 12/16/22 08:18 06:37 07:44 Temp 36.6 Pulse 80 Resp 18 B/P (MAP) 117/57 (77) Pulse Ox 96 O2 Delivery Room Air O2 Flow Rate 0.00 FiO2 21 I&O Intake and Output 12/16/22 00:00 Intake Total 3280 ml Output Total 300 ml Balance 2980 ml Intake Oral 2280 ml IV Total 1000 ml Output Urine Total 300 ml # Voids 5 # Bowel Movements 3 General: Alert, Oriented X3, No Acute Distress HEENT: Atraumatic, EOMI Neck: Supple, No Thyromegaly Lungs: Clear to Auscultation, Normal Air Movement Heart: Regular Rate, No Murmurs Abdomen: Normal Bowel Sounds, Soft, No Tenderness Extremities: No Clubbing, No Cyanosis Skin: No Rashes, No Breakdown Neuro: Normal Gait, Normal Speech Psych/Mental Status: Mental Status NL Results Lab Laboratory Tests 12/15/22 13:54 12/16/22 06:30 A/P-Cardiology Admission Diagnosis GI bleed Anemia Non-ST elevation myocardial infarction Hypertension Assessment/Plan GIB with anemia Better at this time, continue to monitor H&H Patient will need repeat endoscopy with possible capsule endoscopy Consider bleeding scan Chest pain, probably secondary to severe anemia and coronary artery disease Reporting improvement, no further episodes of chest pain, continue to monitor CAD - Cardiac cath of 12-02-22: Left main coronary artery: Ok; Left anterior descending coronary artery: Long, up to 90% in ostial and prox LAD; Left circum flex coronary artery: Long, up to 80 in prox portion of a large OM, and 80% distal left circumflex; Right coronary artery: Dominant with up to 80 distal (but prox to PDA and PL). LVEDP 20 mmHg. LVEF 60% - referred to [facility] for eval for CABG - CV Surg felt coronaries to be too small for bypass, referred to interventional cardiology (Dr Ely) who has advised medical therapy as an initial step DM II, managed and followed by primary care team Hyperlipidemia, continue to monitor Hypertension, continue to monitor Non-Hodgkin's Lymphoma - following with FARRUKH Solorio MD Dec 16, 2022 09:19
[2022-12-16] MEDS: DOCUSATE SODIUM 100 MG (COLACE) CAP PO SCH ×2 (09:46→21:21)
[2022-12-16] MEDS: SENNOSIDES 8.6 MG (SENOKOT) TAB PO SCH ×2 (09:47→21:21)
[2022-12-16] MEDS: polyethylene glycoL POWDER 17 GM (MIRALAX) PACK PO SCH (09:47)
--- NOTE | 2022-12-16 09:57 | Physical Therapy Daily Note ---
PT Daily Note-Current Subjective Patient agrees to PT. Pain Section J - Health Conditions 1. Rarely or not at all 2. Occasionally 3. Frequently 4. Almost constantly 8. Unable to answer Pain Effect on Sleep: 1 Pain Interference with Therapy: 1 Pain Interference w/Day-to-Day: 1 Mental Status Patient Orientation: Normal For Age Attachments: Central Line Transfers SCALE: Activities may be completed with or without assistive devices. 2-Bsuugrdxah-qnloins completes the activity by him/herself with no assistance from a helper. 5-Set-up or Clean-up Assistance-helper sets up or cleans up; patient completes activity. Sherman assists only prior to or following the activity. 4-Supervision or Touching Assistance-helper provides verbal cues and/or touching/steadying and/or contact guard assistance as patient completes activity. Assistance may be provided throughout the activity or intermittently. 3-Partial/Moderate Assistance-helper does LESS THAN HALF the effort. Sherman lifts, holds or supports trunk or limbs, but provides less than half the effort. 2-Substantial/Maximal Assistance-helper does MORE THAN HALF the effort. Sherman lifts or holds trunk or limbs and provides more than half the effort. 0-Rkrhxndro-hdqgfr does ALL the effort. Patient does none of the effort to complete the activity. Or, the assistance of 2 or more helpers is required for the patient to complete the activity. If activity was not attempted, code reason: 7-Patient Refused. 9-Not Applicable-not attempted and the patient did not perform the activity before the current illness, exacerbation or injury. 10-Not Attempted due to Environmental Limitations-(lack of equipment, weather restraints, etc.). 88-Not Attempted due to Medical Conditions or Safety Concerns. Lying to Sitting/Side of Bed(Q: 6 Sit to Stand (QC): 4 Chair/Lhl-kj-Mclie Xfer(QC): 4 Gait Training Distance: 125' Walk 10 feet (QC): 4 Walk 50 ft with 2 Turns(QC): 4 Walk 150 ft (QC): 88 Gait Assistive Device: FWW slow, steady with 2 standing recovery periods due to fatigue Exercises Seated Therapy Exercises: Ankle pumps, Long arc quads, Hip flexion Seated Reps: 15 Assessment Patient fatigues quickly with minimal activity. Patient encouraged to be OOB most of day and instructed to perform exercises PRN. Patient voices understanding. PT Machine Presser Goals Machine Presser Goals PT Machine Presser Goals Time Frame: Dec 27, 2022 Roll Left & Right (QC): 6 Sit to Lying (QC): 6 Lying-Sitting on Side/Bed(QC): 6 Sit to Stand (QC): 6 Chair/Uly-ft-Kbwax Xfer(QC): 6 Toilet Transfer (QC): 6 Walk 10 feet (QC): 6 Walk 50ft with 2 Turns (QC): 6 Walk 150 ft (QC): 6 PT Plan Treatment/Plan Treatment Plan: Continue Plan of Care Treatment Plan: Education, Functional Activity Timothy, Functional Strength, Gait, Safety, Therapeutic Exercise, Transfers Treatment Duration: Dec 27, 2022 Frequency: 6 times per week Estimated Hrs Per Day: .25 hour per day Patient and/or Family Agrees t: Yes Time Time In: 900 Time Out: 912 DATE: Dec 16, 2022 Total Billed Treatment Time: 12 Total Billed Treatment 1 visit FA 12 min SAURAV BROWER PT Dec 16, 2022 09:57
--- NOTE | 2022-12-16 10:45 | Progress Note ---
RAFAEL POZO 12/16/22 1045: Subjective Date Seen by a Provider: Dec 16, 2022 Time Seen by a Provider: 08:05 Subjective/Events-last exam This patient was awake sitting in her chair when seen this morning. Her Hgb this morning was 8.9 which is increased from 7.2 yesterday. She received 2 more units pRBC yesterday, bringing her total received up to 6. She had 2 BM's yesterday that she reports had no blood. Surgery had already been in who is opting to monitor for another day rather than proeed with repeat scopes given that her condition appears to be stabilizing hopefully. She has not had any chest pain for the past 48 hrs per the patient. She reports feeling great at this time and denies LH, CP, palpitations, SOB, abd pain, N/V/D. Review of Systems General: No Chills HEENT: No Head Aches, No Visual Changes Pulmonary: No Dyspnea, No Cough Cardiovascular: No: Chest Pain, Palpitations Gastrointestinal: No: Nausea, Vomiting, Abdominal Pain, Diarrhea, Hematochezia Genitourinary: No Dysuria, No Hematuria Neurological: No: Weakness, Numbness Objective Exam Last Set of Vital Signs Vital Signs Date Time Temp Pulse Resp B/P (MAP) Pulse Ox O2 Delivery O2 Flow Rate FiO2 12/16/22 07:44 36.6 80 18 117/57 (77) 96 Room Air 12/15/22 06:37 0.00 12/10/22 08:18 21 Capillary Refill : Less Than 3 Seconds I&O Intake and Output 12/16/22 00:00 Intake Total 3280 ml Output Total 300 ml Balance 2980 ml Intake Oral 2280 ml IV Total 1000 ml Output Urine Total 300 ml # Voids 5 # Bowel Movements 3 General: Alert, Oriented X3, No Acute Distress HEENT: Atraumatic, EOMI Lungs: Clear to Auscultation, Normal Air Movement Heart: Regular Rate, No Murmurs Abdomen: Normal Bowel Sounds, Soft Extremities: No Clubbing, No Cyanosis, No Edema Skin: No Rashes, No Breakdown Neuro: Normal Speech, Normal Tone, Sensation Intact Results Lab Laboratory Tests 12/15/22 12:32: Lab Scanned Report Transfusion Reaction Form 12/15/22 13:54: Hemoglobin 8.1L, Hematocrit 25L 12/16/22 06:30: Hemoglobin 8.9L, Hematocrit 27L, White Blood Count 4.0L, Red Blood Count 3.02L, Mean Corpuscular Volume 89, Mean Corpuscular Hemoglobin 30, Mean Corpuscular Hemoglobin Concent 33, Red Cell Distribution Width 16.2H, Platelet Count 115L, Mean Platelet Volume 10.6, Immature Granulocyte % (Auto) 0, Neutrophils (%) (Auto) 71, Lymphocytes (%) (Auto) 15, Monocytes (%) (Auto) 8, Eosinophils (%) (Auto) 5, Basophils (%) (Auto) 1, Neutrophils # (Auto) 2.9, Lymphocytes # (Auto) 0.6L, Monocytes # (Auto) 0.3, Eosinophils # (Auto) 0.2, Basophils # (Auto) 0.0, Immature Granulocyte # (Auto) 0.0, Percent Immature Platelet Fraction 3.6, Sodium Level 139, Potassium Level 3.5L, Chloride Level 106, Carbon Dioxide Level 23, Anion Gap 10, Blood Urea Nitrogen 17, Creatinine 1.03, Estimat Glomerular Filtration Rate 55, BUN/Creatinine Ratio 17, Glucose Level 157H, Calcium Level 8.7, Corrected Calcium 9.6, Total Bilirubin 0.7, Aspartate Amino Transf (AST/SGOT) 54H, Alanine Aminotransferase (ALT/SGPT) 26, Alkaline Phosphatase 42, Total Protein 5.2L, Albumin 2.9L Microbiology 12/11/22 MRSA Screen - Final, Complete MRSA not isolated Assessment/Plan Assessment/Plan Assess & Plan/Chief Complaint Acute Rectal Bleeding -12/12 EGD/colonoscopy--> no polyps, masses, or ulcerations. Diverticuli throughout colon. No areas indicative of acute bleeding -12/13 Tech99 study -> no acute GI bleed appreciated. -12/15 Unclear where the source of patients GI bleed is. Will continue to monitor with the help of surgery who plans to reassess need for repeat scopes tomorrow. -12/16 condition appears stable at this time w/ no rectal bleeding since seen yesterday. Monitoring 1 more day with hopes to DC tomorrow if Hgb can remain stable per surgery recommendations. Anemia -(12/10) Hgb 8.9 today down from 10.8 on 12/04. Will monitor and replace with pRBC for Hgb < 8.0 given CAD history. -(12/11) Patient had repeat CBC yesterday afternoon which showed Hgb 7.0. She was given 1 unit pRBC yesterday yesterday. Hgb this morning 7.1. -(12/12) Hgb improved to 8.2 from 7.1 after receiving 1 unit pRBC. -(12/15) Hgb today of 7.1 despite receiving 2 more units pRBC over the weekend (total of 4). Will again transfuse with goal > 8.0 given cardiac history. -(12/16) Hgb today 8.9 after receiving 2 more units pRBC yesterday (Total of 6). Insulin Dependent Diabetes -Insulin sliding scale HX CAD -Heart Cath 12/02/[address] Sharma -> Multi-vessel disease. Refferal placed to Dr. Benjamin at [place] to discuss CABG. LVEF of 60% at that time. -Reports seeing a Doctor at [place] 12/09 and was told she isn't a candidate for CABG due to small vessel size and that they would try medication for a year instead. -Praluent Injectable for HLD. Allergic to statins. -ASA on hold until okay by surgery. Restart tomorrow? -Cardiology Consulted with recommendations appreciated Angina -None for past 48 hrs per patient. Part of what initiated the work-up above. Management per cardiology. HLD HTN Continue Carvedilol 12.5mg PO BID Hypothyroidism -Continue levothyroxine 75 mcg PO QD Diet: NPO DVT proph: SCDs Clinical Quality Measures Admission Status Admission Dx Acute Rectal Bleeding -upper vs. lower GI bleed. 2nd to diverticulosis vs. internal hemorrhoid vs mass vs upper GI. -No history of Blood thinner use and normal coag study. -NPO. Hold ASA until bleeding stops. Zofran for nausea. Consult Surg Anemia -Hgb 8.9 today down from 10.8 on 12/04. Will monitor and replace with pRBC for Hgb < 8.0 given CAD history. Insulin Dependent Diabetes -Insulin sliding scale HX CAD -Heart Cath 12/02/[address] Sharma -> Multi-vessel disease. Refferal placed to Dr. Benjamin at [place] to discuss CABG. LVEF of 60% at that time. -Praluent Injectable for HLD. Allergic to statins. -Cardiology Consulted with recommendations appreciated HLD HTN -Will monitor BP and restart home meds as able. Hypothyroidism -Continue home medications Diet: NPO DVT proph: Lovenox & SCDs DVT/VTE Risk/Contraindication: Contraindications-Pharm: Other *list below* Other: BREANA Fritz DO 12/17/22 0457: Supervisory-Addendum Brief Verification & Attestation Participated in pt care: history, MDM, physical Personally performed: exam, history, MDM, supervision of care Care discussed with: Medical Student Procedures: n/a Results interpretation: Verified all documentation Verification and Attestation of Medical Student E/M Service A medical student performed and documented this service in my presence. I reviewed and verified all information documented by the medical student and made modifications to such information, when appropriate. I personally performed the physical exam and medical decision making. Breana Blount, Dec 17, 2022,04:57 RAFAEL POZO Dec 16, 2022 10:45 BREANA BLOUNT DO Dec 17, 2022 04:57
[2022-12-16] MEDS: RT-ALBUTEROL SULF 2.5 MG/3 ML PRE-MIX VIAL INH SCH ×2 (11:12→21:46)
[2022-12-16 11:48] VITALS: BP 104/51
--- NOTE | 2022-12-16 12:00 | Occupational Ther Daily Note ---
OT Current Status-Daily Note Subjective Up in recliner and agreeable to participate. Mental Status/Objective Patient Orientation: Situation Attachments: IV ADL-Treatment Therapy Code Descriptions/Definitions Functional [place] Measure: 0=Not Assessed/NA 4=Minimal Assistance 1=Total Assistance 5=Supervision or Setup 2=Maximal Assistance 6=Modified [place] 3=Moderate Assistance 7=Complete IndependenceSCALE: Activities may be completed with or without assistive devices. 3-Hdfebesifc-opebubd completes the activity by him/herself with no assistance from a helper. 5-Set-up or Clean-up Assistance-helper sets up or cleans up; patient completes activity. [place] assists only prior to or following the activity. 4-Supervision or Touching Assistance-helper provides verbal cues and/or touching/steadying and/or contact guard assistance as patient completes activity. Assistance may be provided throughout the activity or intermittently. 3-Partial/Moderate Assistance-helper does LESS THAN HALF the effort. [place] lifts, holds or supports trunk or limbs, but provides less than half the effort. 2-Substantial/Maximal Assistance-helper does MORE THAN HALF the effort. [place] lifts or holds trunk or limbs and provides more than half the effort. 7-Razznisux-zjpkis does ALL the effort. Patient does none of the effort to complete the activity. Or, the assistance of 2 or more helpers is required for the patient to complete the activity. If activity was not attempted, code reason: 7-Patient Refused. 9-Not Applicable-not attempted and the patient did not perform the activity before the current illness, exacerbation or injury. 10-Not Attempted due to Environmental Limitations-(lack of equipment, weather restraints, etc.). 88-Not Attempted due to Medical Conditions or Safety Concerns. no changes in ADLS Other Treatment Timed sit stand reps, 1:30 10 reps 2 RB, second 1:20 seconds 3 RB Education OT Patient Education: Correct positioning, Exercise program Teaching Recipient: Patient Teaching Methods: Demonstration, Discussion Response to Teaching: Return Demonstration, Reinforcement Needed OT Load Manager Goals Load Manager Goals Oral Hygiene (QC): 6 Toileting Hygiene (QC): 6 Shower/Bathe Self (QC): 6 Upper Body Dressing (QC): 6 Lower Body Dressing (QC): 6 On/Off Footwear (QC): 6 1=Demonstrate adherence to instructed precautions during ADL tasks. 2=Patient will verbalize/demonstrate understanding of assistive devices/modific ations for ADL. 3=Patient will improve strength/tolerance for activity to enable patient to perform ADL's. OT Education/Plan Problem List/Assessment Assessment: Decreased Activ Tolerance, Decreased UE Strength, Impaired Self- Care Skills Discharge Recommendations Plan/Recommendations: Continue POC Treatment Plan/Plan of Care Treatment,Training & Education: Yes Patient would benefit from OT for education, treatment and training to promote independence in ADL's, mobility, safety and/or upper extremity function for ADL's. Plan of Care: ADL Retraining, Functional Mobility, Group Exercise/Act as Ind, UE Funct Exercise/Act Treatment Duration: Dec 20, 2022 Frequency: 3 times per week (3-5 TIMES PER WEEK) Estimated Hrs Per Day: .25 hour per day Rehab Potential: Fair Time Start Time: 09:15 Stop Time: 09:30 DATE: Dec 16, 2022 Total Time Billed (hr/min): 15 Billed Treatment Time EX 15 min KAITY PARMAR OT Dec 16, 2022 12:00
[2022-12-16 15:35] VITALS: BP 93/52
[2022-12-16 19:44] VITALS: BP 112/58
[2022-12-16 23:45] VITALS: BP 112/57
[2022-12-17 03:28] VITALS: BP 117/55
[2022-12-17 04:53] VITALS: BP 117/55
[2022-12-17] MEDS: PIOGLITAZONE 30MG (ACTOS) TAB PO SCH (06:03)
[2022-12-17] MEDS: LEVOTHYROXINE 75 MCG (LEVOTHROID) TABLET PO SCH (06:03)
[2022-12-17] MEDS: MULTIVIT W/MINERALS TAB (THERAGRAN M) PO SCH (06:03)
[2022-12-17 06:20] LABS: BASOPHILS % (AUTO) 0 % (0-10); HEMOGLOBIN 8.9 g/dL (11.5-16.0); LYMPHOCYTES # (AUTO) 0.6 10^3/uL (1.0-4.0); PLATELET COUNT 121 10^3/uL (130-400)
[2022-12-17 06:22] LABS: EOSINOPHILS # (AUTO) 0.2 10^3/uL (0.0-0.3); EOSINOPHILS % (AUTO) 6 % (0-10); HEMATOCRIT 27 % (35-52); LYMPHOCYTES % (AUTO) 16 % (12-44); MEAN CORPUSCULAR HEMOGLOBIN 30 pg (25-34); MEAN CORPUSCULAR HGB CONC 33 g/dL (32-36); MEAN CORPUSCULAR VOLUME 90 fL (80-99); MONOCYTES # (AUTO) 0.3 10^3/uL (0.0-1.0); MONOCYTES % (AUTO) 8 % (0-12); NEUTROPHILS # (AUTO) 2.5 10^3/uL (1.8-7.8); NEUTROPHILS % (AUTO) 69 % (42-75); WHITE BLOOD COUNT 3.6 10^3/uL (4.3-11.0)
[2022-12-17 06:42] LABS: ALBUMIN 2.9 GM/DL (3.2-4.5); BILIRUBIN,TOTAL 0.7 MG/DL (0.1-1.0); CALCIUM 8.7 MG/DL (8.5-10.1); CREATININE SERUM 1.01 MG/DL (0.60-1.30); POTASSIUM 3.6 MMOL/L (3.6-5.0); TOTAL PROTEIN 5.2 GM/DL (6.4-8.2)
--- NOTE | 2022-12-17 07:03 | Progress Note - Surgery ---
[facility] 12/17/22 0703: Subjective Date Seen by a Provider: Dec 17, 2022 Time Seen by a Provider: 07:01 Subjective/Events-last exam Today pt is lying comfortably upright in bed. She had a BM early this morning that was without blood or pain. Tolerating diet well without nausea or vomiting. Denies CP, SOB, fevers. She states she is ready to go home. Review of Systems General: No Chills, No Night Sweats HEENT: No Head Aches, No Visual Changes Pulmonary: No Dyspnea, No Cough Cardiovascular: No: Chest Pain, Palpitations Gastrointestinal: No: Nausea, Vomiting Genitourinary: No Dysuria, No Frequency Musculoskeletal: No: neck pain, shoulder pain Neurological: No: Weakness, Numbness Objective Exam Vital Signs Date Time Temp Pulse Resp B/P (MAP) Pulse Ox O2 Delivery O2 Flow Rate FiO2 12/17/22 04:53 36.8 20 98 21 12/17/22 03:28 36.8 20 117/55 (75) 94 Room Air 12/17/22 01:14 77 12/16/22 23:45 36.4 81 20 112/57 (75) 92 Room Air 12/16/22 21:46 93 Room Air 12/16/22 20:00 Room Air 12/16/22 19:44 36.1 84 19 112/58 (76) 95 Room Air 12/16/22 19:20 85 12/16/22 15:35 36.0 69 20 93/52 (66) 97 Room Air 12/16/22 13:23 73 12/16/22 11:48 36.6 66 18 104/51 (68) 94 Room Air 12/16/22 11:12 95 Room Air 12/16/22 08:00 Room Air 12/16/22 07:44 36.6 80 18 117/57 (77) 96 Room Air 12/16/22 07:02 69 I & O 12/17/22 07:00 Intake Total 2650 ml Balance 2650 ml Capillary Refill : Less Than 3 Seconds General Appearance: No Apparent Distress, WD/WN HEENT: PERRL/EOMI, Normal ENT Inspection, Moist Mucous Membranes Neck: Non Tender, Supple Respiratory: Chest Non Tender, No Accessory Muscle Use, No Respiratory Distress Cardiovascular: Regular Rate, Rhythm, No JVD Peripheral Pulses: 2+ Radial Pulses (R), 2+ Radial Pulses (L) Gastrointestinal: non tender, soft Extremity: Normal Capillary Refill, Non Tender, Swelling (b/l 1+ pitting LE) Neurologic/Psychiatric: Alert, Oriented x3 Skin: Normal Color, Warm/Dry, Other (left forehead lesions on skin) Lymphatic: No Adenopathy Results Lab Laboratory Tests 12/16/22 13:02: Lab Scanned Report Transfusion Reaction Form 12/16/22 21:24: Glucometer 250H 12/17/22 06:05: White Blood Count 3.6L, Red Blood Count 2.98L, Hemoglobin 8.9L, Hematocrit 27L, Mean Corpuscular Volume 90, Mean Corpuscular Hemoglobin 30, Mean Corpuscular Hemoglobin Concent 33, Red Cell Distribution Width 16.0H, Platelet Count 121L, Mean Platelet Volume 11.0, Immature Granulocyte % (Auto) 0, Neutrophils (%) (Auto) 69, Lymphocytes (%) (Auto) 16, Monocytes (%) (Auto) 8, Eosinophils (%) (Auto) 6, Basophils (%) (Auto) 0, Neutrophils # (Auto) 2.5, Lymphocytes # (Auto) 0.6L, Monocytes # (Auto) 0.3, Eosinophils # (Auto) 0.2, Basophils # (Auto) 0.0, Immature Granulocyte # (Auto) 0.0, Percent Immature Platelet Fraction 3.0, Sodium Level 138, Potassium Level 3.6, Chloride Level 105, Carbon Dioxide Level 24, Anion Gap 9, Blood Urea Nitrogen 19H, Creatinine 1.01, Estimat Glomerular Filtration Rate 56, BUN/Creatinine Ratio 19, Glucose Level 184H, Calcium Level 8.7, Corrected Calcium 9.6, Total Bilirubin 0.7, Aspartate Amino Transf (AST/SGOT) 35H, Alanine Aminotransferase (ALT/SGPT) 21, Alkaline Phosphatase 49, Total Protein 5.2L, Albumin 2.9L Microbiology 12/11/22 MRSA Screen - Final, Complete MRSA not isolated Assessment/Plan Assessment/Plan Assessment/Plan GI bleed Diverticulosis Anemia S/p 6 units PRBC transfused Patient underwent GI bleeding scan 12/13 did not show any areas of active bl eeding Hgb at 8.9 this AM stable, will continue to monitor, transfuse as needed Currently on softs and tolerating well Continue protonix If hgb continues to drop consider repeat endoscopy Advance diet given stable Hgb Likely d/c tomorrow as long as tolerating regular diet Clinical Quality Measures DVT/VTE Risk/Contraindication: Contraindications-Pharm: Other *list below* Other: VARUN Hagan DO 12/17/22 1648: Subjective Subjective/Events-last exam Tolerating diet. Hgb stable. Wanting to go home. No abominal pain. No blood with BM today. Denies n/v fever sweats chills shortness of breath or chest pain. Objective Exam General Appearance: No Apparent Distress, WD/WN, Obese HEENT: PERRL/EOMI, Normal ENT Inspection, Moist Mucous Membranes Neck: Non Tender, Supple Respiratory: Chest Non Tender, No Accessory Muscle Use, No Respiratory Distress Cardiovascular: Regular Rate, Rhythm, No JVD Gastrointestinal: non tender, soft Extremity: Normal Capillary Refill, Non Tender, Swelling (b/l 1+ pitting LE) Neurologic/Psychiatric: Alert, Oriented x3 Skin: Normal Color, Warm/Dry, Other (left forehead lesions on skin) Lymphatic: No Adenopathy Assessment/Plan Assessment/Plan Assessment/Plan GI bleed Diverticulosis Anemia S/p 6 units PRBC transfused Patient underwent GI bleeding scan 12/13 did not show any areas of active bleeding Hgb at 8.9 this AM stable, will continue to monitor, transfuse as needed Currently on softs and tolerating well Continue protonix If hgb continues to drop consider repeat endoscopy Advance diet given stable Hgb Since on diet and no bloody bm and hgb stable okay with DC an close follow up. Supervisory-Addendum Brief Verification & Attestation Participated in pt care: history, MDM, physical Personally performed: exam, history, MDM, supervision of care Care discussed with: Medical Student Procedures: n/a Results interpretation: Verified all documentation Verification and Attestation of Medical Student E/M Service A medical student performed and documented this service in my presence. I reviewed and verified all information documented by the medical student and made modifications to such information, when appropriate. I personally performed the physical exam and medical decision making. Varun Forbes, Dec 17, 2022,16:48 MELISA MONAHAN Dec 17, 2022 07:03 VARUN FORBES DO Dec 17, 2022 16:48
[2022-12-17] MEDS: RT-ALBUTEROL SULF 2.5 MG/3 ML PRE-MIX VIAL INH SCH (07:42)
[2022-12-17] MEDS: polyethylene glycoL POWDER 17 GM (MIRALAX) PACK PO SCH (07:48)
[2022-12-17] MEDS: SENNOSIDES 8.6 MG (SENOKOT) TAB PO SCH (07:48)
[2022-12-17] MEDS: DOCUSATE SODIUM 100 MG (COLACE) CAP PO SCH (07:49)
[2022-12-17 08:36] VITALS: BP 109/58
[2022-12-17] MEDS: VITAMIN D3 25 MCG (1,000 UNITS) TABLET PO SCH (08:46)
[2022-12-17] MEDS: LORATADINE (CLARITIN) 10 MG TAB PO SCH (08:46)
[2022-12-17] MEDS: OXYBUTYNIN (DITROPAN) 5 MG TAB PO SCH (08:46)
[2022-12-17] MEDS: KCL 10 MEQ TAB (MICRO K) PO SCH (08:46)
[2022-12-17] MEDS: FUROSEMIDE 20 MG (LASIX) TAB PO SCH (08:46)
[2022-12-17] MEDS: PANTOPRAZOLE 40 MG (PROTONIX) TAB PO SCH (08:46)
[2022-12-17] MEDS: BETAMETHASONE DIPRO (AUGMENTED) 0.05% CREAM 15 GM TOP SCH (08:47)
--- NOTE | 2022-12-17 10:24 | Occupational Ther Daily Note ---
OT Current Status-Daily Note Subjective Patient in bathroom with door locked, OT educated patient of safety and privacy balance Mental Status/Objective Patient Orientation: Situation ADL-Treatment Therapy Code Descriptions/Definitions Functional [place] Measure: 0=Not Assessed/NA 4=Minimal Assistance 1=Total Assistance 5=Supervision or Setup 2=Maximal Assistance 6=Modified [place] 3=Moderate Assistance 7=Complete IndependenceSCALE: Activities may be completed with or without assistive devices. 5-[id number]-dmsmnwo completes the activity by him/herself with no assistance fr om a helper. 5-Set-up or Clean-up Assistance-helper sets up or cleans up; patient completes activity. [place] assists only prior to or following the activity. 4-Supervision or Touching Assistance-helper provides verbal cues and/or touching/steadying and/or contact guard assistance as patient completes activity. Assistance may be provided throughout the activity or intermittently. 3-Partial/Moderate Assistance-helper does LESS THAN HALF the effort. [place] lifts, holds or supports trunk or limbs, but provides less than half the effort. 2-Substantial/Maximal Assistance-helper does MORE THAN HALF the effort. [place] lifts or holds trunk or limbs and provides more than half the effort. 7-Viudsxaoi-akzwau does ALL the effort. Patient does none of the effort to complete the activity. Or, the assistance of 2 or more helpers is required for the patient to complete the activity. If activity was not attempted, code reason: 7-Patient Refused. 9-Not Applicable-not attempted and the patient did not perform the activity before the current illness, exacerbation or injury. 10-Not Attempted due to Environmental Limitations-(lack of equipment, weather restraints, etc.). 88-Not Attempted due to Medical Conditions or Safety Concerns. Eating (QC): 6 Oral Hygiene (QC): 6 Shower/Bathe Self (QC): 7 Upper Body Dressing (QC): 4 (d/t lines and monitors, gown change) Lower Body Dressing (QC): 5 On/Off Footwear: 5 Toileting Hygiene (QC): 5 Toilet Transfer (QC): 6 Education OT Patient Education: Energy conservation, Exercise program, Modified ADL techniques, Progress toward Goal/Update tx plan, Purpose of tx/functional activities, Reviewed precautions, Rehab process, Safety issues Teaching Recipient: Patient Teaching Methods: Demonstration Response to Teaching: Reinforcement Needed OT Clinical Documentation Developer Goals Clinical Documentation Developer Goals Oral Hygiene (QC): 6 Toileting Hygiene (QC): 6 Shower/Bathe Self (QC): 6 Upper Body Dressing (QC): 6 Lower Body Dressing (QC): 6 On/Off Footwear (QC): 6 1=Demonstrate adherence to instructed precautions during ADL tasks. 2=Patient will verbalize/demonstrate understanding of assistive devices/m odifications for ADL. 3=Patient will improve strength/tolerance for activity to enable patient to perform ADL's. OT Education/Plan Problem List/Assessment Assessment: Decreased Activ Tolerance, Impaired Self-Care Skills Discharge Recommendations Plan/Recommendations: Continue POC Comment Patient would like a FWW when she goes home Treatment Plan/Plan of Care Patient would benefit from OT for education, treatment and training to promote independence in ADL's, mobility, safety and/or upper extremity function for A DL's. Plan of Care: ADL Retraining, Functional Mobility, Group Exercise/Act as Ind, UE Funct Exercise/Act Treatment Duration: Dec 20, 2022 Frequency: 3 times per week (3-5 TIMES PER WEEK) Estimated Hrs Per Day: .25 hour per day Rehab Potential: Fair Prefers standard chair vs recliner, all needs met Time Start Time: 08:55 Stop Time: 09:06 DATE: Dec 17, 2022 Total Time Billed (hr/min): 11 Billed Treatment Time ADL 11 min KAITY PARMAR OT Dec 17, 2022 10:24
--- NOTE | 2022-12-17 10:45 | Physical Therapy Progress Note ---
Therapy Progress Note Patient refused stating she just got into bed. Reports she should be leaving to go home today. Will attempt treatment again tomorrow if patient is still present. COURTNEY AYALA PT Dec 17, 2022 10:45
[2022-12-17 11:40] VITALS: BP 111/58
[2022-12-17] MEDS ORDERED: PANT40TA52 PO (12:38)
--- NOTE | 2022-12-17 12:39 | Discharge Summary ---
Diagnosis/Chief Complaint Date of Admission Dec 11, 2022 at 07:00 Date of Discharge Discharge Date: Dec 17, 2022 Discharge Diagnosis Acute Rectal Bleeding -upper vs. lower GI bleed. 2nd to diverticulosis vs. internal hemorrhoid vs mass vs upper GI. -No history of Blood thinner use and normal coag study. -NPO. Hold ASA until bleeding stops. Zofran for nausea. Consult Surg Anemia -Hgb 8.9 today down from 10.8 on 12/04. Will monitor and replace with pRBC for Hgb < 8.0 given CAD history. Insulin Dependent Diabetes -Insulin sliding scale HX CAD -Heart Cath 12/02/[address] Sharma -> Multi-vessel disease. Refferal placed to Dr. Benjamin at [place] to discuss CABG. LVEF of 60% at that time. -Praluent Injectable for HLD. Allergic to statins. -Cardiology Consulted with recommendations appreciated HLD HTN -Will monitor BP and restart home meds as able. Hypothyroidism -Continue home medications Diet: NPO DVT proph: Lovenox & SCDs Reason Hospital Visit Discharge Summary Discharge Physical Examination Allergies: Coded Allergies: [id number] Reductase Inhibitor (Unverified Allergy, Mild, MUSCLE PAIN, 03/09/18) adhesive (Unverified Allergy, Unknown, 03/09/18) lisinopril (Unverified Adverse Reaction, Mild, COUGH, 03/09/18) Vitals & I&Os Vital Signs Date Time Temp Pulse Resp B/P (MAP) Pulse Ox O2 Delivery O2 Flow Rate FiO2 12/17/22 13:40 36.6 82 18 111/58 95 Room Air 0.00 12/17/22 04:53 21 General Appearance: Alert, Oriented X3, Cooperative Respiratory: Clear to Auscultation Cardiovascular: Regular Rate Psych/Mental Status: Mental Status NL Hospital Course Was the Problem List Reviewed?: Yes Hospital Course This patient is an 82 year old female who was admitted to [facility] from 12/11-12/17 for acute blood loss anemia secondary to hematochezia. Her Hgb on admission ws 8.9. During her stay she continued to have hematochezia with BM's, but none in between. She required a total of 6 units pRBC during her stay. This was being managed concurrently with General Surgery who performed an EGD and colonoscopy on 12/12 that showed diverticula throughout her colon but no masses, polyps, or ulcerations and no areas of probable source of acute GI bleed. Tech 99 scan on 12/13 also showed no signs of GI bleed. This patient does have a History of CAD and intermittent chest pain for which she has been having worked up by Dr. Sharma. During her stay, her aspirin was held due to bleeding concerns. By day of discharge (12/17) this patient had maintained a Hgb of 8.9 two mornings in a row and had been with out a bloody stool for 2-3 days. Her vitals were stable as was the rest of her labwork. She was deemed to be safe for discharge with instructions from surgery on when to resume asa. She will need to follow up with PCP upon D/C to ensure Hgb is maintaining >8 given CAD history. [facility] (last 24 hrs) Laboratory Tests 12/10/22 04:00: White Blood Count 5.2, Red Blood Count 3.08L, Hemoglobin 8.9L, Hematocrit 28L, Mean Corpuscular Volume 92, Mean Corpuscular Hemoglobin 29, Mean Corpuscular Hemoglobin Concent 31L, Red Cell Distribution Width 14.6H, Platelet Count 151, Mean Platelet Volume 9.6, Immature Granulocyte % (Auto) 0, Neutrophils (%) (Auto) 65, Lymphocytes (%) (Auto) 19, Monocytes (%) (Auto) 8, Eosinophils (%) (Auto) 7, Basophils (%) (Auto) 0, Neutrophils # (Auto) 3.4, Lymphocytes # (Auto) 1.0, Monocytes # (Auto) 0.4, Eosinophils # (Auto) 0.4H, Basophils # (Auto) 0.0, Immature Granulocyte # (Auto) 0.0, Prothrombin Time 14.7, INR Comment 1.1, Activated Partial Thromboplast Time 28, Sodium Level 139, Potassium Level 5.0, Chloride Level 108H, Carbon Dioxide Level 22, Anion Gap 9, Blood Urea Nitrogen 35H, Creatinine 1.16, Estimat Glomerular Filtration Rate 48, BUN/Creatinine Ratio 30, Glucose Level 154H, Calcium Level 9.1, Corrected Calcium 9.6, Iron Level 78, Total Bilirubin 0.4, Aspartate Amino Transf (AST/SGOT) 14, Alanine Aminotransferase (ALT/SGPT) 18, Alkaline Phosphatase 63, Total Protein 5.8L, Albumin 3.4, Vitamin B12 Level 308 12/10/22 12:00: White Blood Count 4.7, Red Blood Count 2.48L, Hemoglobin 7.0L, Hematocrit 23L, Mean Corpuscular Volume 91, Mean Corpuscular Hemoglobin 28, Mean Corpuscular Hem oglobin Concent 31L, Red Cell Distribution Width 14.6H, Platelet Count 142, Mean Platelet Volume 9.8, Immature Granulocyte % (Auto) 0, Neutrophils (%) (Auto) 72, Lymphocytes (%) (Auto) 17, Monocytes (%) (Auto) 7, Eosinophils (%) (Auto) 4, Basophils (%) (Auto) 0, Neutrophils # (Auto) 3.3, Lymphocytes # (Auto) 0.8L, Monocytes # (Auto) 0.3, Eosinophils # (Auto) 0.2, Basophils # (Auto) 0.0, Immature Granulocyte # (Auto) 0.0, Percent Immature Platelet Fraction 1.3 12/11/22 06:35: White Blood Count 4.5, Red Blood Count 2.51L, Hemoglobin 7.1L, Hematocrit 22L, Mean Corpuscular Volume 89, Mean Corpuscular Hemoglobin 28, Mean Corpuscular Hemoglobin Concent 32, Red Cell Distribution Width 16.8H, Platelet Count 127L, Mean Platelet Volume 9.7, Immature Granulocyte % (Auto) 0, Neutrophils (%) (Auto) 71, Lymphocytes (%) (Auto) 17, Monocytes (%) (Auto) 7, Eosinophils (%) (Auto) 4, Basophils (%) (Auto) 0, Neutrophils # (Auto) 3.2, Lymphocytes # (Auto) 0.8L, Monocytes # (Auto) 0.3, Eosinophils # (Auto) 0.2, Basophils # (Auto) 0.0, Immature Granulocyte # (Auto) 0.0, Sodium Level 137, Potassium Level 4.4, Chloride Level 108H, Carbon Dioxide Level 21, Anion Gap 8, Blood Urea Nitrogen 23H, Creatinine 1.05, Estimat Glomerular Filtration Rate 54, BUN/Creatinine Ratio 22, Glucose Level 201H, Calcium Level 8.6, Corrected Calcium 9.5, Total Bilirubin 0.4, Aspartate Amino Transf (AST/SGOT) 19, Alanine Aminotransferase (ALT/SGPT) 15, Alkaline Phosphatase 39L, Total Protein 4.9L, Albumin 2.9L, Percent Immature Platelet Fraction 1.6 12/12/22 04:58: Glucometer 148H 12/12/22 05:12: White Blood Count 3.0L, Red Blood Count 2.95L, Hemoglobin 8.2L, Hematocrit 26L, Mean Corpuscular Volume 87, Mean Corpuscular Hemoglobin 28, Mean Corpuscular Hemoglobin Concent 32, Red Cell Distribution Width 16.4H, Platelet Count 120L, Mean Platelet Volume 9.9, Immature Granulocyte % (Auto) 0, Neutrophils (%) (Auto) 64, Lymphocytes (%) (Auto) 19, Monocytes (%) (Auto) 10, Eosinophils (%) (Auto) 6, Basophils (%) (Auto) 1, Neutrophils # (Auto) 1.9, Lymphocytes # (Auto) 0.6L, Monocytes # (Auto) 0.3, Eosinophils # (Auto) 0.2, Basophils # (Auto) 0.0, Immature Granulocyte # (Auto) 0.0, Percent Immature Platelet Fraction 1.6, Sodium Level 140, Potassium Level 3.9, Chloride Level 107, Carbon Dioxide Level 23, Anion Gap 10, Blood Urea Nitrogen 17, Creatinine 1.01, Estimat Glomerular Filtration Rate 56, BUN/Creatinine Ratio 17, Glucose Level 159H, Calcium Level 9.1, Corrected Calcium 9.7, Total Bilirubin 0.5, Aspartate Amino Transf (AST/SGOT) 27, Alanine Aminotransferase (ALT/SGPT) 20, Alkaline Phosphatase 46, Total Protein 5.3L, Albumin 3.2 12/12/22 10:56: Glucometer 152H 12/12/22 17:42: Glucometer 159H 12/12/22 20:55: Glucometer 190H 12/13/22 03:50: White Blood Count 3.7L, Red Blood Count 2.31L, Hemoglobin 6.5#*L, Hematocrit 20*L, Mean Corpuscular Volume 88, Mean Corpuscular Hemoglobin 28, Mean Corpuscular Hemoglobin Concent 32, Red Cell Distribution Width 16.3H, Platelet Count 128L, Mean Platelet Volume 9.6, Immature Granulocyte % (Auto) 0, Neutrophils (%) (Auto) 71, Lymphocytes (%) (Auto) 19, Monocytes (%) (Auto) 8, Eosinophils (%) (Auto) 2, Basophils (%) (Auto) 0, Neutrophils # (Auto) 2.6, Lymphocytes # (Auto) 0.7L, Monocytes # (Auto) 0.3, Eosinophils # (Auto) 0.1, Basophils # (Auto) 0.0, Immature Granulocyte # (Auto) 0.0, Percent Immature Platelet Fraction 1.7, Sodium Level 141, Potassium Level 4.0, Chloride Level 110H, Carbon Dioxide Level 20L, Anion Gap 11, Blood Urea Nitrogen 16, Creatinine 0.87, Estimat Glomerular Filtration Rate 67, BUN/Creatinine Ratio 18, Glucose Level 239H, Calcium Level 8.5, Corrected Calcium 9.4, Total Bilirubin 0.6, Aspartate Amino Transf (AST/SGOT) 22, Alanine Aminotransferase (ALT/SGPT) 14, Alkaline Phosphatase 37L, Total Protein 4.8L, Albumin 2.9L 12/13/22 15:35: Hemoglobin 8.5#L, Hematocrit 25L 12/14/22 07:50: White Blood Count 7.1, Red Blood Count 2.88L, Hemoglobin 8.5L, Hematocrit 26L, Mean Corpuscular Volume 89, Mean Corpuscular Hemoglobin 30, Mean Corpuscular Hemoglobin Concent 33, Red Cell Distribution Width 16.0H, Platelet Count 142, Mean Platelet Volume 9.8, Immature Granulocyte % (Auto) 0, Neutrophils (%) (Auto) 76H, Lymphocytes (%) (Auto) 14, Monocytes (%) (Auto) 10, Eosinophils (%) (Auto) 0, Basophils (%) (Auto) 0, Neutrophils # (Auto) 5.4, Lymphocytes # (Auto) 1.0, Monocytes # (Auto) 0.7, Eosinophils # (Auto) 0.0, Basophils # (Auto) 0.0, Immature Granulocyte # (Auto) 0.0, Sodium Level 138, Potassium Level 4.0, Chloride Level 106, Carbon Dioxide Level 22, Anion Gap 10, Blood Urea Nitrogen 18, Creatinine 1.09, Estimat Glomerular Filtration Rate 51, BUN/Creatinine Ratio 17, Glucose Level 240H, Calcium Level 9.0, Corrected Calcium 9.7, Total Bilirubin 0.7, Aspartate Amino Transf (AST/SGOT) 126H, Alanine Aminotransferase (ALT/SGPT) 38, Alkaline Phosphatase 41, Total Protein 5.3L, Albumin 3.1L 12/15/22 06:03: White Blood Count 4.2L, Red Blood Count 2.45L, Hemoglobin 7.2L, Hematocrit 22L, Mean Corpuscular Volume 91, Mean Corpuscular Hemoglobin 29, Mean Corpuscular Hemoglobin Concent 32, Red Cell Distribution Width 16.3H, Platelet Count 119L, Mean Platelet Volume 10.1, Immature Granulocyte % (Auto) 0, Neutrophils (%) (Auto) 70, Lymphocytes (%) (Auto) 19, Monocytes (%) (Auto) 8, Eosinophils (%) (Auto) 2, Basophils (%) (Auto) 0, Neutrophils # (Auto) 3.0, Lymphocytes # (Auto) 0.8L, Monocytes # (Auto) 0.3, Eosinophils # (Auto) 0.1, Basophils # (Auto) 0.0, Immature Granulocyte # (Auto) 0.0, Percent Immature Platelet Fraction 2.8, Sodium Level 138, Potassium Level 3.6, Chloride Level 106, Carbon Dioxide Level 23, Anion Gap 9, Blood Urea Nitrogen 18, Creatinine 1.10, Estimat Glomerular Filtration Rate 51, BUN/Creatinine Ratio 16, Glucose Level 142H, Calcium Level 8.7, Corrected Calcium 9.7, Total Bilirubin 0.6, Aspartate Amino Transf (AST/SGOT) 74H, Alanine Aminotransferase (ALT/SGPT) 29, Alkaline Phosphatase 36L , Total Protein 5.0L, Albumin 2.8L, Smear Scan YES 12/15/22 12:32: Lab Scanned Report Transfusion Reaction Form 12/15/22 13:54: Hemoglobin 8.1L, Hematocrit 25L 12/16/22 06:30: Hemoglobin 8.9L, Hematocrit 27L, White Blood Count 4.0L, Red Blood Count 3.02L, Mean Corpuscular Volume 89, Mean Corpuscular Hemoglobin 30, Mean Corpuscular Hemoglobin Concent 33, Red Cell Distribution Width 16.2H, Platelet Count 115L, Mean Platelet Volume 10.6, Immature Granulocyte % (Auto) 0, Neutrophils (%) (Auto) 71, Lymphocytes (%) (Auto) 15, Monocytes (%) (Auto) 8, Eosinophils (%) (Auto) 5, Basophils (%) (Auto) 1, Neutrophils # (Auto) 2.9, Lymphocytes # (Auto) 0.6L, Monocytes # (Auto) 0.3, Eosinophils # (Auto) 0.2, Basophils # (Auto) 0.0, Immature Granulocyte # (Auto) 0.0, Percent Immature Platelet Fraction 3.6, Sodium Level 139, Potassium Level 3.5L, Chloride Level 106, Carbon Dioxide Level 23, Anion Gap 10, Blood Urea Nitrogen 17, Creatinine 1.03, Estimat Glomerular Filtration Rate 55, BUN/Creatinine Ratio 17, Glucose Level 157H, Calcium Level 8.7, Corrected Calcium 9.6, Total Bilirubin 0.7, Aspartate Amino Transf (AST/SGOT) 54H, Alanine Aminotransferase (ALT/SGPT) 26, Alkaline Phosphatase 42, Total Protein 5.2L, Albumin 2.9L 12/16/22 13:02: Lab Scanned Report Transfusion Reaction Form 12/16/22 21:24: Glucometer 250H 12/17/22 06:05: White Blood Count 3.6L, Red Blood Count 2.98L, Hemoglobin 8.9L, Hematocrit 27L, Mean Corpuscular Volume 90, Mean Corpuscular Hemoglobin 30, Mean Corpuscular Hemoglobin Concent 33, Red Cell Distribution Width 16.0H, Platelet Count 121L, Mean Platelet Volume 11.0, Immature Granulocyte % (Auto) 0, Neutrophils (%) (Auto) 69, Lymphocytes (%) (Auto) 16, Monocytes (%) (Auto) 8, Eosinophils (%) (Auto) 6, Basophils (%) (Auto) 0, Neutrophils # (Auto) 2.5, Lymphocytes # (Auto) 0.6L, Monocytes # (Auto) 0.3, Eosinophils # (Auto) 0.2, Basophils # (Auto) 0.0, Immature Granulocyte # (Auto) 0.0, Percent Immature Platelet Fraction 3.0, Sodium Level 138, Potassium Level 3.6, Chloride Level 105, Carbon Dioxide Level 24, Anion Gap 9, Blood Urea Nitrogen 19H, Creatinine 1.01, Estimat Glomerular Filtration Rate 56, BUN/Creatinine Ratio 19, Glucose Level 184H, Calcium Level 8.7, Corrected Calcium 9.6, Total Bilirubin 0.7, Aspartate Amino Transf (AST/SGOT) 35H, Alanine Aminotransferase (ALT/SGPT) 21, Alkaline Phosphatase 49, Total Protein 5.2L, Albumin 2.9L 12/17/22 08:15: Glucometer 178H Microbiology 12/11/22 MRSA Screen - Final, Complete MRSA not isolated Pending Labs Microbiology Date/Time Source Procedure Growth Status 12/11/22 11:10 Nasal MRSA Screen - Final MRSA not isolated Complete Laboratory Tests 12/10/22 04:00: White Blood Count 5.2, Red Blood Count 3.08, Hemoglobin 8.9, Hematocrit 28, Mean Corpuscular Volume 92, Mean Corpuscular Hemoglobin 29, Mean Corpuscular Hemoglobin Concent 31, Red Cell Distribution Width 14.6, Platelet Count 151, Mean Platelet Volume 9.6, Immature Granulocyte % (Auto) 0, Neutrophils (%) (Auto) 65, Lymphocytes (%) (Auto) 19, Monocytes (%) (Auto) 8, Eosinophils (%) (Auto) 7, Basophils (%) (Auto) 0, Neutrophils # (Auto) 3.4, Lymphocytes # (Auto) 1.0, Monocytes # (Auto) 0.4, Eosinophils # (Auto) 0.4, Basophils # (Auto) 0.0, Immature Granulocyte # (Auto) 0.0, Prothrombin Time 14.7, INR Comment 1.1, Activated Partial Thromboplast Time 28, Sodium Level 139, Potassium Level 5.0, Chloride Level 108, Carbon Dioxide Level 22, Anion Gap 9, Blood Urea Nitrogen 35, Creatinine 1.16, Estimat Glomerular Filtration Rate 48, BUN/Creatinine Ratio 30, Glucose Level 154, Calcium Level 9.1, Corrected Calcium 9.6, Iron Level 78, Total Bilirubin 0.4, Aspartate Amino Transf (AST/SGOT) 14, Alanine Aminotransferase (ALT/SGPT) 18, Alkaline Phosphatase 63, Total Protein 5.8, Albumin 3.4, Vitamin B12 Level 308 12/10/22 12:00: White Blood Count 4.7, Red Blood Count 2.48, Hemoglobin 7.0, Hematocrit 23, Mean Corpuscular Volume 91, Mean Corpuscular Hemoglobin 28, Mean Corpuscular Hemoglobin Concent 31, Red Cell Distribution Width 14.6, Platelet Count 142, Mean Platelet Volume 9.8, Immature Granulocyte % (Auto) 0, Neutrophils (%) (Auto) 72, Lymphocytes (%) (Auto) 17, Monocytes (%) (Auto) 7, Eosinophils (%) (Auto) 4, Basophils (%) (Auto) 0, Neutrophils # (Auto) 3.3, Lymphocytes # (Auto) 0.8, Monocytes # (Auto) 0.3, Eosinophils # (Auto) 0.2, Basophils # (Auto) 0.0, Immature Granulocyte # (Auto) 0.0, Percent Immature Platelet Fraction 1.3 12/11/22 06:35: White Blood Count 4.5, Red Blood Count 2.51, Hemoglobin 7.1, Hematocrit 22, Mean Corpuscular Volume 89, Mean Corpuscular Hemoglobin 28, Mean Corpuscular Hemoglobin Concent 32, Red Cell Distribution Width 16.8, Platelet Count 127, Mean Platelet Volume 9.7, Immature Granulocyte % (Auto) 0, Neutrophils (%) (Auto) 71, Lymphocytes (%) (Auto) 17, Monocytes (%) (Auto) 7, Eosinophils (%) (Auto) 4, Basophils (%) (Auto) 0, Neutrophils # (Auto) 3.2, Lymphocytes # (Auto) 0.8, Monocytes # (Auto) 0.3, Eosinophils # (Auto) 0.2, Basophils # (Auto) 0.0, Immature Granulocyte # (Auto) 0.0, Sodium Level 137, Potassium Level 4.4, Chloride Level 108, Carbon Dioxide Level 21, Anion Gap 8, Blood Urea Nitrogen 23, Creatinine 1.05, Estimat Glomerular Filtration Rate 54, BUN/Creatinine Ratio 22, Glucose Level 201, Calcium Level 8.6, Corrected Calcium 9.5, Total Bilirubin 0.4, Aspartate Amino Transf (AST/SGOT) 19, Alanine Aminotransferase (ALT/SGPT) 15, Alkaline Phosphatase 39, Total Protein 4.9, Albumin 2.9, Percent Immature Platelet Fraction 1.6 12/12/22 04:58: Glucometer 148 12/12/22 05:12: White Blood Count 3.0, Red Blood Count 2.95, Hemoglobin 8.2, Hematocrit 26, Mean Corpuscular Volume 87, Mean Corpuscular Hemoglobin 28, Mean Corpuscular Hemoglobin Concent 32, Red Cell Distribution Width 16.4, Platelet Count 120, Mean Platelet Volume 9.9, Immature Granulocyte % (Auto) 0, Neutrophils (%) (Auto) 64, Lymphocytes (%) (Auto) 19, Monocytes (%) (Auto) 10, Eosinophils (%) (Auto) 6, Basophils (%) (Auto) 1, Neutrophils # (Auto) 1.9, Lymphocytes # (Auto) 0.6, Monocytes # (Auto) 0.3, Eosinophils # (Auto) 0.2, Basophils # (Auto) 0.0, Immature Granulocyte # (Auto) 0.0, Percent Immature Platelet Fraction 1.6, Sodium Level 140, Potassium Level 3.9, Chloride Level 107, Carbon Dioxide Level 23, Anion Gap 10, Blood Urea Nitrogen 17, Creatinine 1.01, Estimat Glomerular Filtration Rate 56, BUN/Creatinine Ratio 17, Glucose Level 159, Calcium Level 9.1, Corrected Calcium 9.7, Total Bilirubin 0.5, Aspartate Amino Transf (AST/SGOT) 27, Alanine Aminotransferase (ALT/SGPT) 20, Alkaline Phosphatase 46, Total Protein 5.3, Albumin 3.2 12/12/22 10:56: Glucometer 152 12/12/22 17:42: Glucometer 159 12/12/22 20:55: Glucometer 190 12/13/22 03:50: White Blood Count 3.7, Red Blood Count 2.31, Hemoglobin 6.5, Hematocrit 20, Mean Corpuscular Volume 88, Mean Corpuscular Hemoglobin 28, Mean Corpuscular Hemoglobin Concent 32, Red Cell Distribution Width 16.3, Platelet Count 128, Mean Platelet Volume 9.6, Immature Granulocyte % (Auto) 0, Neutrophils (%) (Auto) 71, Lymphocytes (%) (Auto) 19, Monocytes (%) (Auto) 8, Eosinophils (%) (Auto) 2, Basophils (%) (Auto) 0, Neutrophils # (Auto) 2.6, Lymphocytes # (Auto) 0.7, Monocytes # (Auto) 0.3, Eosinophils # (Auto) 0.1, Basophils # (Auto) 0.0, Immature Granulocyte # (Auto) 0.0, Percent Immature Platelet Fraction 1.7, Sodium Level 141, Potassium Level 4.0, Chloride Level 110, Carbon Dioxide Level 20, Anion Gap 11, Blood Urea Nitrogen 16, Creatinine 0.87, Estimat Glomerular Filtration Rate 67, BUN/Creatinine Ratio 18, Glucose Level 239, Calcium Level 8.5, Corrected Calcium 9.4, Total Bilirubin 0.6, Aspartate Amino Transf (AST/SGOT) 22, Alanine Aminotransferase (ALT/SGPT) 14, Alkaline Phosphatase 37, Total Protein 4.8, Albumin 2.9 12/13/22 15:35: Hemoglobin 8.5, Hematocrit 25 12/14/22 07:50: White Blood Count 7.1, Red Blood Count 2.88, Hemoglobin 8.5, Hematocrit 26, Mean Corpuscular Volume 89, Mean Corpuscular Hemoglobin 30, Mean Corpuscular Hemoglo bin Concent 33, Red Cell Distribution Width 16.0, Platelet Count 142, Mean Platelet Volume 9.8, Immature Granulocyte % (Auto) 0, Neutrophils (%) (Auto) 76, Lymphocytes (%) (Auto) 14, Monocytes (%) (Auto) 10, Eosinophils (%) (Auto) 0, Basophils (%) (Auto) 0, Neutrophils # (Auto) 5.4, Lymphocytes # (Auto) 1.0, Monocytes # (Auto) 0.7, Eosinophils # (Auto) 0.0, Basophils # (Auto) 0.0, Immature Granulocyte # (Auto) 0.0, Sodium Level 138, Potassium Level 4.0, Chloride Level 106, Carbon Dioxide Level 22, Anion Gap 10, Blood Urea Nitrogen 18, Creatinine 1.09, Estimat Glomerular Filtration Rate 51, BUN/Creatinine Ratio 17, Glucose Level 240, Calcium Level 9.0, Corrected Calcium 9.7, Total Bilirubin 0.7, Aspartate Amino Transf (AST/SGOT) 126, Alanine Aminotransferase (ALT/SGPT) 38, Alkaline Phosphatase 41, Total Protein 5.3, Albumin 3.1 12/15/22 06:03: White Blood Count 4.2, Red Blood Count 2.45, Hemoglobin 7.2, Hematocrit 22, Mean Corpuscular Volume 91, Mean Corpuscular Hemoglobin 29, Mean Corpuscular Hemoglobin Concent 32, Red Cell Distribution Width 16.3, Platelet Count 119, Mean Platelet Volume 10.1, Immature Granulocyte % (Auto) 0, Neutrophils (%) (Auto) 70, Lymphocytes (%) (Auto) 19, Monocytes (%) (Auto) 8, Eosinophils (%) (Auto) 2, Basophils (%) (Auto) 0, Neutrophils # (Auto) 3.0, Lymphocytes # (Auto) 0.8, Monocytes # (Auto) 0.3, Eosinophils # (Auto) 0.1, Basophils # (Auto) 0.0, Immature Granulocyte # (Auto) 0.0, Percent Immature Platelet Fraction 2.8, Sodium Level 138, Potassium Level 3.6, Chloride Level 106, Carbon Dioxide Level 23, Anion Gap 9, Blood Urea Nitrogen 18, Creatinine 1.10, Estimat Glomerular Filtration Rate 51, BUN/Creatinine Ratio 16, Glucose Level 142, Calcium Level 8.7, Corrected Calcium 9.7, Total Bilirubin 0.6, Aspartate Amino Transf (AST/SGOT) 74, Alanine Aminotransferase (ALT/SGPT) 29, Alkaline Phosphatase 36, Total Protein 5.0, Albumin 2.8, Smear Scan YES 12/15/22 12:32: Lab Scanned Report Transfusion Reaction Form 12/15/22 13:54: Hemoglobin 8.1, Hematocrit 25 12/16/22 06:30: Hemoglobin 8.9, Hematocrit 27, White Blood Count 4.0, Red Blood Count 3.02, Mean Corpuscular Volume 89, Mean Corpuscular Hemoglobin 30, Mean Corpuscular Hemoglobin Concent 33, Red Cell Distribution Width 16.2, Platelet Count 115, Mean Platelet Volume 10.6, Immature Granulocyte % (Auto) 0, Neutrophils (%) (Auto) 71, Lymphocytes (%) (Auto) 15, Monocytes (%) (Auto) 8, Eosinophils (%) (Auto) 5, Basophils (%) (Auto) 1, Neutrophils # (Auto) 2.9, Lymphocytes # (Auto) 0.6, Monocytes # (Auto) 0.3, Eosinophils # (Auto) 0.2, Basophils # (Auto) 0.0, Immature Granulocyte # (Auto) 0.0, Percent Immature Platelet Fraction 3.6, Sodium Level 139, Potassium Level 3.5, Chloride Level 106, Carbon Dioxide Level 23, Anion Gap 10, Blood Urea Nitrogen 17, Creatinine 1.03, Estimat Glomerular Filtration Rate 55, BUN/Creatinine Ratio 17, Glucose Level 157, Calcium Level 8.7, Corrected Calcium 9.6, Total Bilirubin 0.7, Aspartate Amino Transf (AST/SGOT) 54, Alanine Aminotransferase (ALT/SGPT) 26, Alkaline Phosphatase 42, Total Protein 5.2, Albumin 2.9 12/16/22 13:02: Lab Scanned Report Transfusion Reaction Form 12/16/22 21:24: Glucometer 250 12/17/22 06:05: White Blood Count 3.6, Red Blood Count 2.98, Hemoglobin 8.9, Hematocrit 27, Mean Corpuscular Volume 90, Mean Corpuscular Hemoglobin 30, Mean Corpuscular Hemoglobin Concent 33, Red Cell Distribution Width 16.0, Platelet Count 121, Mean Platelet Volume 11.0, Immature Granulocyte % (Auto) 0, Neutrophils (%) (Auto) 69, Lymphocytes (%) (Auto) 16, Monocytes (%) (Auto) 8, Eosinophils (%) (Auto) 6, Basophils (%) (Auto) 0, Neutrophils # (Auto) 2.5, Lymphocytes # (Auto) 0.6, Monocytes # (Auto) 0.3, Eosinophils # (Auto) 0.2, Basophils # (Auto) 0.0, Immature Granulocyte # (Auto) 0.0, Percent Immature Platelet Fraction 3.0, Sodium Level 138, Potassium Level 3.6, Chloride Level 105, Carbon Dioxide Level 24, Anion Gap 9, Blood Urea Nitrogen 19, Creatinine 1.01, Estimat Glomerular Filtration Rate 56, BUN/Creatinine Ratio 19, Glucose Level 184, Calcium Level 8.7, Corrected Calcium 9.6, Total Bilirubin 0.7, Aspartate Amino Transf (AST/SGOT) 35, Alanine Aminotransferase (ALT/SGPT) 21, Alkaline Phosphatase 49, Total Protein 5.2, Albumin 2.9 12/17/22 08:15: Glucometer 178 Discharge Home Medications: Active Scripts Active Pantoprazole Sodium 40 Mg Tablet.dr 40 Mg PO DAILY Reported Urea 20 % Cream..g. 1 Applic TOP UD PRN Miralax (Polyethylene Glycol 3350) 17 Gram Powd.pack 17 Gm PO DAILY Potassium Chloride 10 Meq Capsule.er 10 Meq PO DAILY Nitroglycerin 0.4 Mg Tab.subl 0.4 Mg SL UD PRN Diclofenac Sodium 1 % Gel..gram. 1 Applic TOP QID PRN Carvedilol 12.5 Mg Tablet 12.5 Mg PO BID Tylenol Extra Strength (Acetaminophen) 500 Mg Tablet 1,000 Mg PO Q8H PRN TAKES 2 (500MG) TABS Clobetasol Propionate 0.05 % Cream..g. 1 Applic TP BID Refresh Relieva 0.5-0.9% Drop (Carboxymethylcellulos/Glycerin) 0.5 %-0.9 % Drops 1 Drop OS QID PRN Vitamin D3 (Cholecalciferol (Vitamin D3)) 25 Mcg (1000 Unit) Tablet 50 Mcg PO BID TAKES 2 (25MCG) TABS Furosemide 20 Mg Tablet 20 Mg PO DAILY Glucose (Dextrose) 4 Gram Tab.chew 4 Gm PO UD PRN Pioglitazone HCl 45 Mg Tablet 45 Mg PO DAILY Semglee (Yfgn) Pen (Insulin Glargine-Yfgn) 100 Unit/Ml (3 Ml) Insuln.pen 28 Unit SQ BID Praluent Pen (Alirocumab) 75 Mg/Ml Pen.injctr 75 Mg SQ [id number] ON SATURDAYS Refresh Tears (Carboxymethylcellulose Sodium) 0.5 % Drops 1 Drop OD QID PRN Loratadine 10 Mg Tablet 10 Mg PO DAILY Levothyroxine Sodium 75 Mcg Tablet 75 Mcg PO DAILY Oxybutynin Chloride ER (Oxybutynin Chloride) 10 Mg Tab.er.24 10 Mg PO DAILY Preservision Areds 2 Softgel (Vit C/E/Zn/Coppr/Lutein/Zeaxan) 250MG-90MG Capsule 1 Each PO BID Instructions to patient/family Please see electronic discharge instructions given to patient. Diagnosis/Problems Diagnosis/Problems (1) Rectal bleeding Status: Acute (2) Acute blood loss anemia Status: Acute (3) Hypoglycemia Status: Acute Clinical Quality Measures DVT/VTE Risk/Contraindication: Contraindications-Pharm: Other *list below* Other: MICKEY Fritz DO Dec 17, 2022 12:39
--- NOTE | 2022-12-17 13:25 | Progress Note - Cardiology ---
Cardiology SOAP Progress Note Subjective: No cp or palp or syncope Some gen weakness No focal weakness No rectal blood No change in color of stools No n/v Wishes to go home Objective: I&O/Vital Signs 12/17/22 12/17/22 12/17/22 12/17/22 03:28 04:53 07:28 07:42 Temp 36.8 36.8 Pulse 20 75 Resp 20 B/P (MAP) 117/55 (75) Pulse Ox 94 98 94 O2 Delivery Room Air Room Air FiO2 21 12/17/22 12/17/22 12/17/22 12/17/22 08:00 08:36 11:40 12:33 Temp 36.7 36.6 Pulse 77 75 82 Resp 18 18 B/P (MAP) 109/58 (75) 111/58 (75) Pulse Ox 94 94 95 O2 Delivery Room Air Room Air Room Air 12/17/22 00:00 Intake Total 2200 ml Balance 2200 ml Weight (Pounds): 213 Weight (Ounces): 0.0 Weight (Calculated Kilograms): 96.277640 Constitutional: AAO x 3, well-developed, well-nourished Respiratory: No accessory muscle use; chest expansion is symmetric, chest is bilaterally symmetric, other (good, bilateral air entry) Cardiovascular: regular rate-rhythm, S1 and S2, systolic murmur Gastrointestional: No tender; soft; No guarding, No rebound; audible bowel sounds Extremities: swelling (mild, bilat leg swelling); No clubbing, No cyanosis Neurologic/Psychiatric: oriented x 3, other (moves all limbs equally) Skin: rash (mild rash and swelling on L forehead (pt states residual from shingles)) Results/Procedures: Labs Laboratory Tests 12/16/22 21:24: Glucometer 250H 12/17/22 06:05: White Blood Count 3.6L, Red Blood Count 2.98L, Hemoglobin 8.9L, Hematocrit 27L, Mean Corpuscular Volume 90, Mean Corpuscular Hemoglobin 30, Mean Corpuscular Hemoglobin Concent 33, Red Cell Distribution Width 16.0H, Platelet Count 121L, Mean Platelet Volume 11.0, Immature Granulocyte % (Auto) 0, Neutrophils (%) (Auto) 69, Lymphocytes (%) (Auto) 16, Monocytes (%) (Auto) 8, Eosinophils (%) (Auto) 6, Basophils (%) (Auto) 0, Neutrophils # (Auto) 2.5, Lymphocytes # (Auto) 0.6L, Monocytes # (Auto) 0.3, Eosinophils # (Auto) 0.2, Basophils # (Auto) 0.0, Immature Granulocyte # (Auto) 0.0, Percent Immature Platelet Fraction 3.0, Sodium Level 138, Potassium Level 3.6, Chloride Level 105, Carbon Dioxide Level 24, Anion Gap 9, Blood Urea Nitrogen 19H, Creatinine 1.01, Estimat Glomerular Filtration Rate 56, BUN/Creatinine Ratio 19, Glucose Level 184H, Calcium Level 8.7, Corrected Calcium 9.6, Total Bilirubin 0.7, Aspartate Amino Transf (AST/SGOT) 35H, Alanine Aminotransferase (ALT/SGPT) 21, Alkaline Phosphatase 49, Total Protein 5.2L, Albumin 2.9L 12/17/22 08:15: Glucometer 178H Microbiology 12/11/22 MRSA Screen - Final, Complete MRSA not isolated A/P: Assessment: GIB with anemia multiple blood transfusions - management is by the Hospitalist and Surgical services - Surgical service has advised holding off on aspirin until at least next week CAD - Cardiac cath of 12-02-22: Left main coronary artery: Ok; Left anterior descending coronary artery: Long, up to 90% in ostial and prox LAD; Left circumflex coronary artery: Long, up to 80 in prox portion of a large OM, and 80% distal left circumflex; Right coronary artery: Dominant with up to 80 distal (but prox to PDA and PL). LVEDP 20 mmHg. LVEF 60% - referred to [facility] for eval for CABG - CV Surg felt coronaries to be too small for bypass, referred to interventional cardiology (Dr Ely) who has advised medical therapy as an initial step DM II Hyperlipidemia Hypertension Non-Hodgkin's Lymphoma - following with Dr. Torres Plan: * Complex management due to parallel issues of multivessel CAD (needs ASA) and GIB (needs to hold ASA) * We recommend that ASA 81 mg daily be continued as soon as allowed by the Surgical services. I called Dr Forbes of Surg svce today and spoke with him. He advises hold off on ASA until next week, given that bleeding has barely stabilized at this point * We have recommended close outpt cardiac f/u KYLE,ALI MD FACP FAC CCDS Dec 17, 2022 13:25
[2022-12-17 13:40] VITALS: BP 111/58
--- NOTE | 2022-12-17 14:32 | Progress Note ---
RAFAEL POZO 12/17/22 1432: Progress Note Hospital Course This patient is an 82 year old female who was admitted to [facility] from 12/11-12/17 for acute blood loss anemia secondary to hematochezia. Her Hgb on admission ws 8.9. During her stay she continued to have hematochezia with BM's, but none in between. She required a total of 6 units pRBC during her stay. This was being managed concurrently with General Surgery who performed an EGD and colonoscopy on 12/12 that showed diverticula throughout her colon but no masses, polyps, or ulcerations and no areas of probable source of acute GI bleed. Tech 99 scan on 12/13 also showed no signs of GI bleed. This patient does have a History of CAD and intermittent chest pain for which she has been having worked up by Dr. Sharma. During her stay, her aspirin was held due to bleeding concerns. By day of discharge (12/17) this patient had maintained a Hgb of 8.9 two mornings in a row and had been with out a bloody stool for 2-3 days. Her vitals were stable as was the rest of her labwork. She was deemed to be safe for discharge with instructions from surgery on when to resume asa. She will need to follow up with PCP upon D/C to ensure Hgb is maintaining >8 given CAD history. BREANA DORAN DO 12/18/22 0454: Supervisory-Addendum Brief Verification & Attestation Participated in pt care: history, MDM, physical Personally performed: exam, history, MDM, supervision of care Care discussed with: Medical Student Procedures: n/a Results interpretation: Verified all documentation Verification and Attestation of Medical Student E/M Service A medical student performed and documented this service in my presence. I reviewed and verified all information documented by the medical student and made modifications to such information, when appropriate. I personally performed the physical exam and medical decision making. Breana Doran Dec 18, 2022,04:54 RAFAEL POZO Dec 17, 2022 14:32 BREANA DORAN DO Dec 18, 2022 04:54
--- NOTE | 2022-12-17 14:43 | Physician Query Clarification ---
Physician Query-General Query to Physician: Clinical Validation Clarification Dr Dany Doran Non-STEMI has been documented in the medical record. After study, has non-STEMI been ruled out? If it has been ruled out, please document non-STEMI ruled out" in the progress notes and/or discharge summary. Yes/Agreed, non-STEMI ruled out/is not clinically valid Not agreed, non-STEMI has not been ruled out/is clinically valid* *Please document the clinical evidence supportive of this diagnosis (even if now resolved) in the Progress Notes and Discharge Summary Other, with explanation of the clinical findings Clinically undetermined, no explanation for the clinical findings Additional information: History of CAD and hypertension admitted with anemia chest pain, cardiology consult can find no evidence of troponin levels ordered or done, EKG done stating "possible anterior myocardial infarction probably old" does have history of heart cath with cardiac disease medical therapy was re commended at that time treatments include aspirin blood products keep hemoglobin above 8 In responding to this query, please exercise your independent professional judgment. The purpose of this communication is to more accurately reflect the complexity of your patients condition. The fact that a question is asked does not imply that any particular answer is desired or expected. Thank you for your timely response to this clarification. Bryanna Rios MSN, RN Clinical Grocery Store Associate [email or web address] PHYSICIAN RESPONSE: Based on the clinical findings in the record, please respond to the query above on this document as an addendum. Physician Response: Physician Response no MA If you have questions please contact: Family Day Care Provider: Ext: Thank you for your time and cooperation. Clinical Grocery Store Associate/Family Day Care Provider This is a permanent part of the medical record BRYANNA RIOS Dec 17, 2022 14:43 MICKEY DORAN DO Dec 17, 2022 18:40
== END 2022-12-17 13:40 | disposition home or self-care (01) | DRG 378 ==
LOC: EDUNIT# 03:33 → ER 03:35 → 4TH 07:30 → OBSVTOIN 12-11 07:00
PROVIDERS: ADMIT Internal Medicine; ATTEND Internal Medicine
PROC: 0DB68ZX Excision of Stomach, Via Natural or Artificial Opening Endoscopic, Diagnostic (ICD-10-PCS; principal; 2022-12-12 16:00)
PROC: 0DJD8ZZ Inspection of Lower Intestinal Tract, Via Natural or Artificial Opening Endoscopic (ICD-10-PCS; 2022-12-12 16:00)
DX: K57.31 Diverticulosis of large intestine without perforation or abscess with bleeding (principal); C85.90 Non-Hodgkin lymphoma, unspecified, unspecified site; D62 Acute posthemorrhagic anemia; I42.9 Cardiomyopathy, unspecified; E78.5 Hyperlipidemia, unspecified; I10 Essential (primary) hypertension; Z86.73 Personal history of transient ischemic attack (TIA), and cerebral infarction without residual deficits; K21.9 Gastro-esophageal reflux disease without esophagitis; E30.9 Disorder of puberty, unspecified; Z79.82 Long term (current) use of aspirin; Z79.899 Other long term (current) drug therapy; E78.00 Pure hypercholesterolemia, unspecified; M19.90 Unspecified osteoarthritis, unspecified site; E11.649 Type 2 diabetes mellitus with hypoglycemia without coma; I25.119 Atherosclerotic heart disease of native coronary artery with unspecified angina pectoris; Z79.4 Long term (current) use of insulin
CPT/HCPCS: 36415; 78278; 80053; 82607; 82947; 83540; 85014; 85018; 85025; 85610; 85730; 86850; 86900; 86901; 86920; 87081; 93005; 94640; 94760; 96374

== ENCOUNTER 2023-01-29 08:42 | Outpatient (RCR) | payer MEDICARE, OTHER ==
[~2023-01-29 08:42] MED LIST changes: +DICL100G13 TOP; +NITR0.4T39 SL; +PANT40TA52 PO; +POTA10CA44 PO; +UREA85CR23 TOP
[2023-01-29 09:04] LABS: BASOPHILS % (AUTO) 0 % (0-10); EOSINOPHILS # (AUTO) 0.3 10^3/uL (0.0-0.3); EOSINOPHILS % (AUTO) 9 % (0-10); HEMATOCRIT 31 % (35-52); HEMOGLOBIN 8.9 g/dL (11.5-16.0); LYMPHOCYTES # (AUTO) 0.6 10^3/uL (1.0-4.0); LYMPHOCYTES % (AUTO) 19 % (12-44); MEAN CORPUSCULAR HEMOGLOBIN 26 pg (25-34); MEAN CORPUSCULAR HGB CONC 29 g/dL (32-36); MEAN CORPUSCULAR VOLUME 88 fL (80-99); MEAN PLATELET VOLUME 9.9 fL (9.0-12.2); MONOCYTES # (AUTO) 0.3 10^3/uL (0.0-1.0); MONOCYTES % (AUTO) 9 % (0-12); NEUTROPHILS # (AUTO) 1.9 10^3/uL (1.8-7.8); NEUTROPHILS % (AUTO) 62 % (42-75); PLATELET COUNT 158 10^3/uL (130-400); WHITE BLOOD COUNT 3.1 10^3/uL (4.3-11.0)
[2023-01-29 09:20] LABS: ALBUMIN 3.7 GM/DL (3.2-4.5); BILIRUBIN,TOTAL 0.6 MG/DL (0.1-1.0); CALCIUM 9.6 MG/DL (8.5-10.1); CREATININE SERUM 1.3 MG/DL (0.60-1.30); POTASSIUM 4.2 MMOL/L (3.6-5.0)
== END 2023-02-27 | disposition home or self-care (01) ==
LOC: ONC 08:42
PROVIDERS: ATTEND Internal Medicine Hematology & Oncology
DX: C85.10 Unspecified B-cell lymphoma, unspecified site (principal); I10 Essential (primary) hypertension; E78.5 Hyperlipidemia, unspecified; R73.9 Hyperglycemia, unspecified; E66.9 Obesity, unspecified; K21.9 Gastro-esophageal reflux disease without esophagitis; Z79.899 Other long term (current) drug therapy
CPT/HCPCS: 80053; 82728; 83540; 83550; 85025

== ENCOUNTER → 2023-02-04 | Outpatient (CLI) | payer MEDICARE, OTHER ==
--- NOTE | 2023-02-04 12:32 | Diagnostic Imaging Report ---
INDICATION: Routine screening. Comparison is made with prior mammogram 10/19/2018 and 11/13/2017. 2-D and 3-D bilateral screening mammography was performed with CAD. Both breasts are heterogeneously dense, limiting the sensitivity of mammography. The left breast is unremarkable. There is an ovoid density in the outer right breast. No definite correlate on this MLO view is seen. Additional views are recommended. There are benign calcifications right breast. No malignant-appearing microcalcifications are seen. Axillae are unremarkable. IMPRESSION: Right breast density. Additional views are recommended for further evaluation. ACR BI-RADS Category 0: Incomplete. (Needs additional imaging evaluation). Result letter will be mailed to the patient. Note: At least 10% of breast cancer is not imaged by mammography. BI-RADS Category 0 Dictated by: Dictated on workstation # [id number]
== END ==
LOC: RAD 09:42
PROVIDERS: ATTEND Nurse Practitioner Family
DX: Z12.31 Encounter for screening mammogram for malignant neoplasm of breast (principal)
CPT/HCPCS: 77063; 77067

== ENCOUNTER → 2023-02-20 | Outpatient (CLI) | payer MEDICARE, OTHER ==
--- NOTE | 2023-02-20 12:55 | Diagnostic Imaging Report ---
Indication: Right breast density. Patient presents for additional views. Correlation is made with screening mammogram from 02/04/2023. Unilateral right 2-D and 3-D diagnostic mammography was performed. This included rolled CC views as well as spot compression CC and conventional 90 degree lateral views. Additional views fail to demonstrate a discrete mass. The area of density in the lateral right breast appears to resolve and most likely represents superimposed tissue. No suspicious microcalcifications are seen. Right axilla is unremarkable. IMPRESSION: BI-RADS Category 1 Additional views fail to demonstrate a discrete mass. The patient may return to routine annual screening mammography. ACR BI-RADS Category 1: Negative. Result letter will be mailed to the patient. Note: At least 10% of breast cancer is not imaged by mammography. Dictated by: Dictated on workstation # [id number]
== END ==
LOC: RAD 12:28
PROVIDERS: ATTEND Nurse Practitioner Family
DX: R92.2 Inconclusive mammogram (principal)
CPT/HCPCS: 77065; G0279

== ENCOUNTER 2023-03-09 10:59 | Outpatient (RCR) | payer MEDICARE, OTHER ==
[2023-03-02 10:18] LABS: BASOPHILS % (AUTO) 0 % (0-10); EOSINOPHILS # (AUTO) 0.1 10^3/uL (0.0-0.3); EOSINOPHILS % (AUTO) 3 % (0-10); HEMATOCRIT 32 % (35-52); HEMOGLOBIN 9.2 g/dL (11.5-16.0); LYMPHOCYTES # (AUTO) 0.5 10^3/uL (1.0-4.0); LYMPHOCYTES % (AUTO) 15 % (12-44); MEAN CORPUSCULAR HEMOGLOBIN 24 pg (25-34); MEAN CORPUSCULAR HGB CONC 29 g/dL (32-36); MEAN CORPUSCULAR VOLUME 83 fL (80-99); MEAN PLATELET VOLUME 10.2 fL (9.0-12.2); MONOCYTES # (AUTO) 0.2 10^3/uL (0.0-1.0); MONOCYTES % (AUTO) 6 % (0-12); NEUTROPHILS # (AUTO) 2.4 10^3/uL (1.8-7.8); NEUTROPHILS % (AUTO) 76 % (42-75); PLATELET COUNT 142 10^3/uL (130-400); WHITE BLOOD COUNT 3.2 10^3/uL (4.3-11.0)
[2023-03-02 10:37] LABS: ALBUMIN 3.3 GM/DL (3.2-4.5); BILIRUBIN,TOTAL 0.4 MG/DL (0.1-1.0); CREATININE SERUM 1.51 MG/DL (0.60-1.30); POTASSIUM 4.4 MMOL/L (3.6-5.0); TOTAL PROTEIN 5.5 GM/DL (6.4-8.2)
[2023-03-02 12:45] VITALS: BP 97/52
[~2023-03-09] VITALS: Ht 172.7 cm; Wt 118.4 kg
[2023-03-09 10:55] VITALS: BP 118/59
[~2023-03-09 10:59] MED LIST changes: +FERRIC CARBOXYMALTOSE INJ 750 MG in NS (IVPB) 250 ML 250 ML IV SCH; +NS (IVPB) 250 ML 250 ML ONE; -POTA10CA44 PO; +POTA10CA84 PO
== END 2023-03-30 | disposition home or self-care (01) ==
LOC: ONC 10:59
PROVIDERS: ATTEND Internal Medicine Hematology & Oncology
DX: Z45.2 Encounter for adjustment and management of vascular access device (principal); C85.10 Unspecified B-cell lymphoma, unspecified site; I10 Essential (primary) hypertension; E78.5 Hyperlipidemia, unspecified; R73.9 Hyperglycemia, unspecified; E66.9 Obesity, unspecified; K21.9 Gastro-esophageal reflux disease without esophagitis; Z79.899 Other long term (current) drug therapy
CPT/HCPCS: 36415; 80053; 82728; 83540; 83550; 85025; 96365; 96523

== ENCOUNTER 2023-04-13 07:39 | Inpatient (IN) | payer MEDICARE, OTHER ==
[2023-04-13] VITALS (7 sets, daily range): BP systolic 112–172; BP diastolic 58–86
[~2023-04-13] VITALS: Ht 172 cm; Wt 126.3 kg
[~2023-04-13 07:39] MED LIST changes: -FERRIC CARBOXYMALTOSE INJ 750 MG in NS (IVPB) 250 ML 250 ML IV SCH; -NS (IVPB) 250 ML 250 ML ONE
--- NOTE | 2023-04-13 07:53 | ED Respiratory ---
General Chief Complaint: Respiratory Problems Stated Complaint: SOB Source: patient, old records Exam Limitations: no limitations History of Present Illness Date Seen by Provider: Apr 13, 2023 Time Seen by Provider: 07:40 Initial Comments 83-year-old female with past medical history of A-fib coming in due to respiratory issues. She states she woke up at 4 AM in respiratory distress. She states this is happened in the past and she had fluid on her lungs. She endorses a new cough this morning as well. Denies any significant chest pain, abdominal pain, nausea, vomiting, focal weakness or numbness, or any other concerns. She states she was supposed to present to the surgical center here today. Allergies and Home Medications Allergies Coded Allergies: Kyyogxl-KQZ-OuQ Reductase Inhibitor (Unverified Allergy, Mild, MUSCLE PAIN, 03/09/18) adhesive (Unverified Allergy, Unknown, 03/09/18) lisinopril (Unverified Adverse Reaction, Mild, COUGH, 03/09/18) Patient Home Medication List Home Medication List Reviewed: Yes Acetaminophen (Tylenol Extra Strength) 500 Mg Tablet, 1,000 MG PO Q8H PRN for PAIN-MILD (1-4), (Reported) Entered as Reported by: NURA DENNIS on 12/02/22 1210 Alirocumab (Praluent Pen) 75 Mg/Ml Pen.injctr, 75 MG SQ [id number], (Reported) Entered as Reported by: NURA DENNIS on 06/23/22 1430 Carboxymethylcellulos/Glycerin (Refresh Relieva 0.5-0.9% Drop) 0.5 %-0.9 % Drops, 1 DROP OS QID PRN for DRY EYES, (Reported) Entered as Reported by: NURA DENNIS on 12/02/22 1207 Carboxymethylcellulose Sodium (Refresh Tears) 0.5 % Drops, 1 DROP OD QID PRN for DRY EYES, (Reported) Entered as Reported by: NURA DENNIS on 06/23/22 1428 Carvedilol (Carvedilol) 12.5 Mg Tablet, 12.5 MG PO BID, (Reported) Entered as Reported by: CRISTIN JEFFREY on 12/10/22 1041 Cholecalciferol (Vitamin D3) (Vitamin D3) 25 Mcg (1000 Unit) Tablet, 50 MCG PO BID, (Reported) Entered as Reported by: NURA DENNIS on 12/02/22 1207 Clobetasol Propionate (Clobetasol Propionate) 0.05 % Cream..g., 1 APPLIC TP BID, (Reported) Entered as Reported by: NURA DENNIS on 12/02/22 1207 Dextrose (Glucose) 4 Gram Tab.chew, 4 GM PO UD PRN for HYPOGLYCEMIA, (Reported) Entered as Reported by: NURA DENNIS on 06/23/22 1437 Diclofenac Sodium (Diclofenac Sodium) 1 % Gel..gram., 1 APPLIC TOP QID PRN for PAIN-BREAKTHROUGH, (Reported) Entered as Reported by: CRISTIN JEFFREY on 12/10/22 1041 Furosemide (Furosemide) 20 Mg Tablet, 20 MG PO DAILY, (Reported) Entered as Reported by: NURA DENNIS on 12/02/22 1207 Insulin Glargine-Yfgn (Semglee (Yfgn) Pen) 100 Unit/Ml (3 Ml) Insuln.pen, 28 UNIT SQ BID, (Reported) Entered as Reported by: NURA DENNIS on 06/23/22 1432 Levothyroxine Sodium (Levothyroxine Sodium) 75 Mcg Tablet, 75 MCG PO DAILY, (Reported) Entered as Reported by: CHRISTIANO LOPEZ on 03/09/18 1438 Loratadine (Loratadine) 10 Mg Tablet, 10 MG PO DAILY, (Reported) Entered as Reported by: CHRISTIANO LOPEZ on 03/09/18 1438 Nitroglycerin (Nitroglycerin) 0.4 Mg Tab.subl, 0.4 MG SL UD PRN for CHEST PAIN, (Reported) Entered as Reported by: CRISTIN JEFFREY on 12/10/22 1041 Oxybutynin Chloride (Oxybutynin Chloride ER) 10 Mg Tab.er.24, 10 MG PO DAILY, (Reported) Entered as Reported by: CHRISTIANO LOPEZ on 10/30/16 1252 Pantoprazole Sodium (Pantoprazole Sodium) 40 Mg Tablet.dr, 40 MG PO DAILY Prescribed by: MICKEY BLOUNT on 12/17/22 1238 Pioglitazone HCl (Pioglitazone HCl) 45 Mg Tablet, 45 MG PO DAILY, (Reported) Entered as Reported by: NURA DENNIS on 06/23/22 1433 Polyethylene Glycol 3350 (Miralax) 17 Gram Powd.pack, 17 GM PO DAILY, (Reported) Entered as Reported by: CRISTIN JEFFREY on 12/10/22 1041 Potassium Chloride (Potassium Chloride) 10 Meq Capsule.er, 10 MEQ PO DAILY, (Reported) Entered as Reported by: CRISTIN JEFFREY on 12/10/22 1041 Urea (Urea) 20 % Cream..g., 1 APPLIC TOP UD PRN for ITCHING, (Reported) Entered as Reported by: CRISTIN JEFFREY on 12/10/22 1045 Vit C/E/Zn/Coppr/Lutein/Zeaxan (Preservision Areds 2 Softgel) 250MG-90MG Capsule, 1 EACH PO BID, (Reported) Entered as Reported by: CHRISTIANO LOPEZ on 10/30/16 1252 Review of Systems Review of Systems Constitutional: No fever EENTM: no symptoms reported Respiratory: see HPI Cardiovascular: no symptoms reported Gastrointestinal: no symptoms reported Genitourinary: no symptoms reported Musculoskeletal: no symptoms reported Skin: no symptoms reported Past Vuqhrfs-Vkmzxd-Wfegbi Hx Patient Social History Tobacco Use?: No Immunizations Up To Date Tetanus Booster (TDap): Unknown Seasonal Allergies Seasonal Allergies: Yes (MILD) Past Medical History Surgeries: Yes Abdominal, Adenoidectomy, Bladder Surgery, Cardiac, Hysterectomy, Oophorectomy, Tonsillectomy Respiratory: No Cardiac: No Coronary Artery Disease, High Cholesterol, Hypertension Neurological: Yes Stroke Reproductive Disorders: No 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 Sexually Transmitted Disease: No HIV/AIDS: No Genitourinary: No Gastrointestinal: Yes Diverticulosis Musculoskeletal: No Arthritis Endocrine: Yes Diabetes, Insulin dep, Hypothyroidsim Loss of Vision: Bilateral Hearing Impairment: Denies Cancer: Yes Skin Did You Recieve Any Treatments: Yes What Type of Treatment Did You: Surgical Intervention Psychosocial: No Integumentary: Yes (Chronic shingles of the left face and scalp, multiple skin cancers removed) Adverse Reaction/Blood Tranf: No (N/A) Family Medical History Cancer 09 SISTER Family history: Diabetes mellitus 03 MOTHER Stroke 03 MOTHER No Pertinent Family Hx Physical Exam Vital Signs - First Documented 04/13/23 07:39 Pulse 78 Resp 39 B/P (MAP) 182/95 (124) Pulse Ox 95 O2 Delivery Room Air O2 Flow Rate 4.00 Capillary Refill : Height: 5'8.00" Weight: 213lbs. 0.0oz. 96.495217lq; 39.69 BMI Method:Stated General Appearance: severe distress Eyes: Bilateral Eye Normal Inspection HEENT: PERRL/EOMI, normal ENT inspection, pharynx normal Neck: non-tender, full range of motion, supple, normal inspection Respiratory: chest non-tender, respiratory distress, accessory muscle use, crackles, rhonchi Cardiovascular: regular rate, rhythm Gastrointestinal: normal bowel sounds, non tender, soft; No distended, No guarding, No rebound Extremities: normal range of motion, non-tender, no calf tenderness Neurologic/Psychiatric: no motor/sensory deficits, alert, normal mood/affect Skin: normal color, warm/dry Focused Exam Lactate Level 04/13/23 07:54: Lactic Acid Level 2.01*H Lactic Acid Level Laboratory Tests Test 04/13/23 07:54 Lactic Acid Level 2.01 MMOL/L (0.50-2.00) *H Progress/Results/Core Measures Suspected Sepsis SIRS Temperature: Pulse: Respiratory Rate: Laboratory Tests 04/13/23 07:54: White Blood Count 4.2L Blood Pressure / Mean: 04/13/23 07:54: Lactic Acid Level 2.01*H Laboratory Tests 04/13/23 07:54: Creatinine 1.46H, INR Comment 1.1, Platelet Count 130, Total Bilirubin 1.2H Results/Orders Lab Results Laboratory Tests Test 04/13/23 07:54 04/13/23 07:59 Range/Units White Blood Count 4.2 L 4.3-11.0 10^3/uL Red Blood Count 3.98 3.80-5.11 10^6/uL Hemoglobin 10.8 L 11.5-16.0 g/dL Hematocrit 36 35-52 % Mean Corpuscular Volume 91 80-99 fL Mean Corpuscular Hemoglobin 27 25-34 pg Mean Corpuscular Hemoglobin Concent 30 L 32-36 g/dL Red Cell Distribution Width 23.1 H 10.0-14.5 % Platelet Count 130 130-400 10^3/uL Mean Platelet Volume 9.5 9.0-12.2 fL Immature Granulocyte % (Auto) 0 % Neutrophils (%) (Auto) 70 42-75 % Lymphocytes (%) (Auto) 18 12-44 % Monocytes (%) (Auto) 6 0-12 % Eosinophils (%) (Auto) 5 0-10 % Basophils (%) (Auto) 1 0-10 % Neutrophils # (Auto) 2.9 1.8-7.8 10^3/uL Lymphocytes # (Auto) 0.8 L 1.0-4.0 10^3/uL Monocytes # (Auto) 0.2 0.0-1.0 10^3/uL Eosinophils # (Auto) 0.2 0.0-0.3 10^3/uL Basophils # (Auto) 0.0 0.0-0.1 10^3/uL Immature Granulocyte # (Auto) 0.0 0.0-0.1 10^3/uL Prothrombin Time 14.4 12.2-14.7 SEC INR Comment 1.1 0.8-1.4 Activated Partial Thromboplast Time 27 24-35 SEC Sodium Level 136 135-145 MMOL/L Potassium Level 4.3 3.6-5.0 MMOL/L Chloride Level 103 98-107 MMOL/L Carbon Dioxide Level 23 21-32 MMOL/L Anion Gap 10 5-14 MMOL/L Blood Urea Nitrogen 22 H 7-18 MG/DL Creatinine 1.46 H 0.60-1.30 MG/DL Estimat Glomerular Filtration Rate 36 BUN/Creatinine Ratio 15 Glucose Level 372 H 70-105 MG/DL Lactic Acid Level 2.01 *H 0.50-2.00 MMOL/L Calcium Level 9.4 8.5-10.1 MG/DL Corrected Calcium 9.4 8.5-10.1 MG/DL Magnesium Level 2.0 1.6-2.4 MG/DL Total Bilirubin 1.2 H 0.1-1.0 MG/DL Aspartate Amino Transf (AST/SGOT) 22 5-34 U/L Alanine Aminotransferase (ALT/SGPT) 28 0-55 U/L Alkaline Phosphatase 120 40-136 U/L Troponin I < 0.028 <0.028 NG/ML B-Type Natriuretic Peptide 1287.9 H <100.0 PG/ML Total Protein 6.8 6.4-8.2 GM/DL Albumin 4.0 3.2-4.5 GM/DL Influenza Type A (RT-PCR) Not Detected Not Detecte Influenza Type B (RT-PCR) Not Detected Not Detecte SARS-CoV-2 RNA (RT-PCR) Not Detected Not Detecte My Orders Orders - ASHLEE MARIE MD Ekg Tracing (04/13/23 07:47) Cbc With Automated Diff (04/13/23 07:48) Magnesium (04/13/23 07:48) Chest 1 View, Ap/Pa Only (04/13/23 07:48) Comprehensive Metabolic Panel (04/13/23 07:48) Protime With Inr (04/13/23 07:48) Partial Thromboplastin Time (04/13/23 07:48) O2 (04/13/23 07:48) Monitor-Rhythm Ecg Trace Only (04/13/23 07:48) Bnp Johnny (04/13/23 07:48) Troponin I [place] (04/13/23 07:48) Lactic Acid Analyzer (04/13/23 07:48) Influenza A And B By Pcr (04/13/23 07:48) Covid 19 Inhouse Test (04/13/23 07:48) Implanted Port: Ok To Use (04/13/23 07:48) Blood Culture (04/13/23 07:48) Cefepime Injection (Cefepime Injection) (04/13/23 08:00) Ipratropium/Albuterol Inh Soln (Ipratrop (04/13/23 08:00) Furosemide Injection (Furosemide Injec (04/13/23 08:45) Medications Given in ED Current Medications Medications Dose Ordered Sig/Williams Route Start Time Stop Time Status Last Admin Dose Admin Albuterol/ Ipratropium 3 ml ONCE ONCE INH 04/13/23 08:00 04/13/23 08:01 DC 04/13/23 08:05 3 ML Cefepime HCl 1000 mg/Sodium Chloride 50 ml @ 100 mls/hr ONCE ONCE IV 04/13/23 08:00 04/13/23 08:29 DC 04/13/23 08:17 100 MLS/HR Furosemide 40 mg ONCE ONCE IVP 04/13/23 08:45 04/13/23 08:46 DC 04/13/23 08:45 40 MG Vital Signs/I&O 04/13/23 04/13/23 04/13/23 07:39 07:39 08:06 Pulse 78 Resp 39 B/P (MAP) 182/95 (124) Pulse Ox 95 95 O2 Delivery Room Air Nasal Cannula Nasal Cannula O2 Flow Rate 4.00 4.00 Capillary Refill : Progress Note : Progress Note 83-year-old female with above history coming in in respiratory distress. The patient's oxygen saturation was in the high 70s on arrival. She was immediately placed on 6 L via nasal cannula with improvement. She did have some wheezing, mostly crackles on exam. She was given a DuoNeb with no significant change. Chest x-ray ordered and interpreted by me showing bilateral pulmonary edema which is new for her. EKG ordered and interpreted by me showing normal sinus rhythm with some subtle depressions in the lateral leads, actually appears improved from prior. I reviewed the chart, she has had a cath relatively re cently showing multivessel disease. Ejection fraction during that cath was reportedly normal. An IV was placed and basic labs were obtained here and were significant for normal creatinine, normal troponin, elevated BNP most notably. She was given cefepime on arrival here empirically due to concerns for potential infection. After the chest x-ray, however, she was given IV Lasix. Blood pressure has trended down to 150s over 70s, will hold off on any type of nitro at this time to bring it down further. I paged Dr. Sharma as he is her biomedical technician and am awaiting a call back for consult. I then contacted Dr. Wolfe who will admit her to the step down under inpatient status for further evaluation and management. ECG Initial ECG Impression Date: Apr 13, 2023 Initial ECG Impression Time: 07:49 Initial ECG Rate: 79 Initial ECG Rhythm: Normal Sinus Comment Narrow QRS, normal axis, ST depression in the lateral leads, no STEMI Diagnostic Imaging Diagonstic Imaging: Xray (chest) Comments NAME: OBDULIA TOMPKINS [facility] REC#: [id number] PT STATUS: REG ER : 1940 PHYSICIAN: ASHLEE MARIE MD ADMIT DATE: 04/13/23/ER Draft Date of Exam:04/13/23 CHEST 1 VIEW, AP/PA ONLY INDICATION: Chest pain, shortness of breath . TECHNIQUE: Single view chest 8:33 AM CORRELATION STUDY: 06/23/2022 FINDINGS: Right IJ Jyayhg-u-Ebec catheter unchanged. Heart size is stable. There has been development of rather extensive bilateral pulmonary opacities most pronounced in the central and lower lung distribution. Given the distribution, favors probable rather significant perihilar and pulmonary edema. Small bilateral pleural effusions. Superimposed areas of infiltrate particularly the right lung base would be difficult to exclude. Surgical clips over the left axilla. IMPRESSION: 1. Development of rather extensive more central and lower lobe opacities. The distribution which favors a rather significant perihilar and pulmonary edema. Superimposed infiltrate however not excluded. Followup imaging is recommended until resolution. Dictated on workstation # [id number] Dict: 04/13/23 0835 Trans: 04/13/23 0844 [facility] [id number] Interpreted by: RICHIE GUILLEN DO Electronically signed by: Departure Impression Primary Impression: Respiratory failure Qualified Codes: J96.01 - Acute respiratory failure with hypoxia Additional Impression: Pulmonary edema Qualified Codes: J81.0 - Acute pulmonary edema Disposition: ADMITTED INPATIENT Condition: Stable Admissions Decision to Admit Reason: Admit from ER (General) Decision to Admit/Date: Apr 13, 2023 Time/Decision to Admit Time: 08:45 Departure-Patient Inst. Referrals: BRITTANIE RAUSCH MD (PCP/Family) Primary Care Physician ASHLEE MARIE MD Apr 13, 2023 07:53
[2023-04-13] MEDS ORDERED: RT-Ipratropium/Albuterol NEB 3 ML VIAL INH ONE (08:00)
[2023-04-13] MEDS ORDERED: CEFEPIME INJECTION 1,000 MG in NS (IVPB) 50 ML 50 ML IV ONE (08:00)
[2023-04-13 08:06] LABS: BASOPHILS % (AUTO) 1 % (0-10); EOSINOPHILS # (AUTO) 0.2 10^3/uL (0.0-0.3); EOSINOPHILS % (AUTO) 5 % (0-10); HEMATOCRIT 36 % (35-52); HEMOGLOBIN 10.8 g/dL (11.5-16.0); LYMPHOCYTES # (AUTO) 0.8 10^3/uL (1.0-4.0); LYMPHOCYTES % (AUTO) 18 % (12-44); MEAN CORPUSCULAR HEMOGLOBIN 27 pg (25-34); MEAN CORPUSCULAR HGB CONC 30 g/dL (32-36); MEAN CORPUSCULAR VOLUME 91 fL (80-99); MEAN PLATELET VOLUME 9.5 fL (9.0-12.2); MONOCYTES # (AUTO) 0.2 10^3/uL (0.0-1.0); MONOCYTES % (AUTO) 6 % (0-12); NEUTROPHILS # (AUTO) 2.9 10^3/uL (1.8-7.8); NEUTROPHILS % (AUTO) 70 % (42-75); PLATELET COUNT 130 10^3/uL (130-400); WHITE BLOOD COUNT 4.2 10^3/uL (4.3-11.0)
[2023-04-13 08:21] LABS: CHLORIDE 103 MMOL/L (98-107); INR 1.1 (0.8-1.4); POTASSIUM 4.3 MMOL/L (3.6-5.0); PROTHROMBIN TIME PATIENT 14.4 SEC (12.2-14.7); SODIUM 136 MMOL/L (135-145)
[2023-04-13 08:22] LABS: CALCIUM 9.4 MG/DL (8.5-10.1)
[2023-04-13 08:23] LABS: GLUCOSE 372 MG/DL (70-105); TOTAL PROTEIN 6.8 GM/DL (6.4-8.2)
[2023-04-13 08:24] LABS: CARBON DIOXIDE 23 MMOL/L (21-32)
[2023-04-13 08:25] LABS: BILIRUBIN,TOTAL 1.2 MG/DL (0.1-1.0)
[2023-04-13 08:26] LABS: ALKALINE PHOSPHATASE 120 U/L (40-136)
[2023-04-13 08:27] LABS: CREATININE SERUM 1.46 MG/DL (0.60-1.30); GFR ESTIMATED 36
[2023-04-13 08:28] LABS: BUN/CREATININE RATIO 15
[2023-04-13 08:29] LABS: ALANINE AMINOTRANSFERASE 28 U/L (0-55)
--- NOTE | 2023-04-13 08:44 | Diagnostic Imaging Report ---
INDICATION: Chest pain, shortness of breath . TECHNIQUE: Single view chest 8:33 AM CORRELATION STUDY: 06/23/2022 FINDINGS: Right IJ Apgdbu-i-Ofgi catheter unchanged. Heart size is stable. There has been development of rather extensive bilateral pulmonary opacities most pronounced in the central and lower lung distribution. Given the distribution, favors probable rather significant perihilar and pulmonary edema. Small bilateral pleural effusions. Superimposed areas of infiltrate particularly the right lung base would be difficult to exclude. Surgical clips over the left axilla. IMPRESSION: 1. Development of rather extensive more central and lower lobe opacities. The distribution which favors a rather significant perihilar and pulmonary edema. Superimposed infiltrate however not excluded. Followup imaging is recommended until resolution. Dictated by: Dictated on workstation # [id number]
[2023-04-13] MEDS ORDERED: FUROSEMIDE INJECTION 40 MG/4 ML VIAL IVP ONE ×2 (08:45→18:45)
--- NOTE | 2023-04-13 09:24 | Consultation-Cardiology ---
HPI-Cardiology Cardiology Consultation: Date of Consultation 04/13/23 Time Seen by a Provider: 09:20 Date of Admission 04-13-23 Attending Physician Daphne Torres MD Admitting Physician Admitting Physician: Tameka Wolfe MD Attending Physician: Tameka Wolfe MD Consulting Physician Abundio Sharma MD HPI: Chief Complaint: Respiratory distress Ms. Tompkins is an 83 yr old female admitted to 508 from the ED d/t increasing dyspnea. She states she woke up at 4:00 this morning and could not catch her breath. She reports freq non-productive cough. She states she was scheduled for a bone marrow bx today. She reports she has not missed any of her medications. She denies any c/o CP or palpitations. She reports bilat LE swelling which she feels has been getting worse the last couple days. No c/o n/v/d. No c/o fever or chills. Review of Systems-Cardiology Review of Systems Constitutional: No chills; malaise Eyes: No vision change Ears/Nose/Throat: No epistaxis, No recent hearing loss Respiratory: As described under HPI Cardiovascular: As described under HPI Gastrointestinal: No constipation, No diarrhea, No nausea, No vomiting Genitourinary: No dysuria, No hematuria Psychiatric/Neurological: numbness (petechial rash to legs ) Hematologic: anemia AZY-Xyxhcd-Rsdydf Hx Patient Social History Alcohol Use?: No Pt feels they are or have been: No Immunizations Up To Date Tetanus Booster (TDap): Unknown Date of Pneumonia Vaccine: Jun 09, 2016 Date of Influenza Vaccine: Jun 09, 2016 Past Medical History PMH As described under Assessment. Family Medical History Family Medical History: She reports her sister had a CVA Family History: Cancer 09 SISTER Family history: Diabetes mellitus 03 MOTHER Stroke 03 MOTHER Allergies and Home Medications Allergies Coded Allergies: Auozslr-MUM-JoE Reductase Inhibitor (Unverified Allergy, Mild, MUSCLE PAIN, 03/09/18) adhesive (Unverified Allergy, Unknown, 03/09/18) lisinopril (Unverified Adverse Reaction, Mild, COUGH, 03/09/18) Patient Home Medication List Acetaminophen (Tylenol Extra Strength) 500 Mg Tablet, 1,000 MG PO Q6H PRN for PAIN-MILD (1-4), (Reported) Entered as Reported by: NURA DENNIS on 12/02/22 1210 Last Action: Held Alirocumab (Praluent Pen) 75 Mg/Ml Pen.injctr, 75 MG SQ C2VHIRL, (Reported) Entered as Reported by: NURA DENNIS on 06/23/22 1430 Last Action: Held Amiodarone HCl (Amiodarone HCl) 200 Mg Tablet, 200 MG PO DAILY, (Reported) Entered as Reported by: CRISTIN JEFFREY on 04/13/231508 Last Action: Held Amlodipine Besylate (Amlodipine Besylate) 5 Mg Tablet, 5 MG PO DAILY, (Reported) Entered as Reported by: CRISTIN JEFFREY on 04/13/231508 Last Action: Held Aspirin (Aspirin EC) 81 Mg Tablet.dr, 81 MG PO DAILY, (Reported) Entered as Reported by: CRISTIN JEFFREY on 04/13/231508 Last Action: Held Carvedilol (Carvedilol) 25 Mg Tablet, 12.5 MG PO BID, (Reported) Entered as Reported by: CRISTIN JEFFREY on 04/13/231508 Last Action: Held Cholecalciferol (Vitamin D3) (Vitamin D3) 50 Mcg (2000 Unit) Capsule, 50 MCG PO DAILY, (Reported) Entered as Reported by: CRISTIN JEFFREY on 04/13/231508 Last Action: Held Diclofenac Sodium (Diclofenac Sodium) 1 % Gel..gram., 1 APPLIC TOP QID PRN for PAIN-BREAKTHROUGH, (Reported) Entered as Reported by: CRISTIN JEFFREY on 12/10/22 1041 Last Action: Held Furosemide (Furosemide) 40 Mg Tablet, 40 MG PO DAILY, (Reported) Entered as Reported by: CRISTIN JEFFREY on 04/13/231508 Last Action: Held Insulin Glargine-Yfgn (Semglee (Yfgn) Pen) 100 Unit/Ml (3 Ml) Insuln.pen, 34 UNIT SQ BID, (Reported) Entered as Reported by: NURA DENNIS on 06/23/22 1432 Last Action: Held Isosorbide Mononitrate (Isosorbide Mononitrate ER) 30 Mg Tab.er.24h, 30 MG PO DAILY, (Reported) Entered as Reported by: CRISTIN JEFFREY on 04/13/231508 Last Action: Held Levothyroxine Sodium (Levothyroxine Sodium) 75 Mcg Tablet, 75 MCG PO DAILY, (Reported) Entered as Reported by: CHRISTIANO LOPEZ on 03/09/18 1438 Last Action: Continued Lidocaine (Lidocaine) 4 % Cream..g., 1 APPLIC TP Q12H PRN for SHINGLES PAIN, (Reported) Entered as Reported by: CRISTIN JEFFREY on 04/13/23 1511 Last Action: Held Loratadine (Loratadine) 10 Mg Tablet, 10 MG PO DAILY, (Reported) Entered as Reported by: CHRISTIANO LOPEZ on 03/09/18 143 Last Action: Continued Losartan Potassium (Losartan Potassium) 50 Mg Tablet, 50 MG PO DAILY, (Reported) Entered as Reported by: CRISTIN JEFFREY on 04/13/23 150 Last Action: Held Omeprazole (Omeprazole) 20 Mg Tablet.dr, 20 MG PO DAILY, (Reported) Entered as Reported by: CRISTIN JEFFREY on 04/13/23 150 Last Action: Converted Oxybutynin Chloride (Oxybutynin Chloride ER) 10 Mg Tab.er.24, 10 MG PO DAILY, (Reported) Entered as Reported by: CHRISTIANO LOPEZ on 10/30/16 1252 Last Action: Converted Potassium Chloride (Potassium Chloride) 20 Meq Tablet.er, 10 MEQ PO DAILY, (Reported) Entered as Reported by: CRISTIN JEFFREY on 04/13/231508 Last Action: Held Vit C/E/Zn/Coppr/Lutein/Zeaxan (Preservision Areds 2 Softgel) 250MG-90MG Capsule, 1 EACH PO BID, (Reported) Entered as Reported by: CHRISTIANO LOPEZ on 10/30/16 1252 Last Action: Held Discontinued Medications Carboxymethylcellulos/Glycerin (Refresh Relieva 0.5-0.9% Drop) 0.5 %-0.9 % Drops , 1 DROP OS QID PRN for DRY EYES, (Reported) Discontinued Reason: No Longer Taking Entered as Reported by: NURA DENNIS on 12/02/22 1207 Last Action: Discontinued Carboxymethylcellulose Sodium (Refresh Tears) 0.5 % Drops, 1 DROP OD QID PRN for DRY EYES, (Reported) Discontinued Reason: No Longer Taking Entered as Reported by: NURA DENNIS on 06/23/22 1428 Last Action: Discontinued Cholecalciferol (Vitamin D3) (Vitamin D3) 25 Mcg (1000 Unit) Tablet, 50 MCG PO BID, (Reported) Discontinued Reason: Prescription changed Entered as Reported by: NURA DENNIS on 12/02/221206 Clobetasol Propionate (Clobetasol Propionate) 0.05 % Cream..g., 1 APPLIC TP BID, (Reported) Discontinued Reason: No Longer Taking Entered as Reported by: NURA DENNIS on 12/02/221206 Last Action: Discontinued Dextrose (Glucose) 4 Gram Tab.chew, 4 GM PO UD PRN for HYPOGLYCEMIA, (Reported) Discontinued Reason: No Longer Taking Entered as Reported by: NURA DENNIS on 06/23/221436 Last Action: Discontinued Furosemide (Furosemide) 20 Mg Tablet, 20 MG PO DAILY, (Reported) Discontinued Reason: No Longer Taking Entered as Reported by: NURA DENNIS on 12/02/221206 Last Action: Discontinued Nitroglycerin (Nitroglycerin) 0.4 Mg Tab.subl, 0.4 MG SL UD PRN for CHEST PAIN, (Reported) Discontinued Reason: No Longer Taking Entered as Reported by: CRISTIN JEFFREY on 12/10/22 104 Last Action: Discontinued Pantoprazole Sodium (Pantoprazole Sodium) 40 Mg Tablet.dr, 40 MG PO DAILY Discontinued Reason: No Longer Taking Prescribed by: MICKEY BLOUNT on 12/17/22 1238 Last Action: Discontinued Pioglitazone HCl (Pioglitazone HCl) 45 Mg Tablet, 45 MG PO DAILY, (Reported) Discontinued Reason: No Longer Taking Entered as Reported by: NURA DENNIS on 06/23/22 1433 Last Action: Discontinued Polyethylene Glycol 3350 (Miralax) 17 Gram Powd.pack, 17 GM PO DAILY, (Reported) Discontinued Reason: No Longer Taking Entered as Reported by: CRISTIN JEFFREY on 12/10/22 104 Last Action: Discontinued Potassium Chloride (Potassium Chloride) 10 Meq Capsule.er, 10 MEQ PO DAILY, (Reported) Discontinued Reason: Duplicate Order Entered as Reported by: CRISTIN JEFFREY on 12/10/221040 Last Action: Discontinued Urea (Urea) 20 % Cream..g., 1 APPLIC TOP UD PRN for ITCHING, (Reported) Discontinued Reason: No Longer Taking Entered as Reported by: CRISTIN JEFFREY on 12/10/22 1045 Last Action: Discontinued Physical Exam-Cardiology Physical Exam Vital Signs/I&O 04/13/23 04/14/23 04/14/23 04/14/23 23:15 00:00 01:00 03:31 Temp 36.9 36.9 Pulse 75 74 64 67 Resp 25 17 21 B/P (MAP) 129/58 (81) 135/57 (83) 116/48 (70) Pulse Ox 95 95 93 O2 Delivery Nasal Cannula Nasal Cannula Nasal Cannula O2 Flow Rate 4.00 4.00 4.00 04/14/23 04/14/23 04/14/23 04/14/23 04:00 07:01 07:09 08:00 Temp 36.5 Pulse 64 65 64 Resp 20 21 B/P (MAP) 110/54 (72) 128/57 (80) Pulse Ox 95 96 O2 Delivery Nasal Cannula Nasal Cannula Nasal Cannula O2 Flow Rate 4.00 4.00 3.00 04/14/23 00:00 Intake Total 700 ml Output Total 1750 ml Balance -1050 ml Capillary Refill : Less Than 3 Seconds Constitutional: AAO x 3, well-developed, well-nourished HEENT: PERRL, hearing is well preserved, oral hygience is good Neck: No carotid bruit; carotid pulses are 2 + bilaterally Respiratory: No accessory muscle use, No respiratory distress; chest expansion is symmetric, crackles (lower lobes), rhonchi (scattered), other (orthopneic) Gastrointestinal: No tender; soft, round; No guarding; audible bowel sounds Extremities: other (mild to mod LE swelling) Skin: other (petechial rash to legs bilat) Data Review Labs Laboratory Tests 04/13/23 10:52: Glucometer 314H 04/13/23 11:30: Lactic Acid Level 0.61 04/13/23 15:55: Glucometer 246H 04/13/23 20:32: Glucometer 300H 04/14/23 04:00: Sodium Level 138, Potassium Level 3.9, Chloride Level 102, Carbon Dioxide Level 28, Anion Gap 8, Blood Urea Nitrogen 21H, Creatinine 1.22, Estimat Glomerular Filtration Rate 45, BUN/Creatinine Ratio 17, Glucose Level 236H, Calcium Level 8.6, Magnesium Level 1.8 04/14/23 05:57: Glucometer 199H 04/14/23 10:17: Glucometer 206H Radiology NAME: OBDULIA TOMPKINS [facility] REC#: [id number] PT STATUS: REG ER : 1940 PHYSICIAN: ASHLEE MARIE MD ADMIT DATE: 04/13/23/ER Draft Date of Exam:04/13/23 CHEST 1 VIEW, AP/PA ONLY INDICATION: Chest pain, shortness of breath . TECHNIQUE: Single view chest 8:33 AM CORRELATION STUDY: 06/23/2022 FINDINGS: Right IJ Buzklj-y-Zicj catheter unchanged. Heart size is stable. There has been development of rather extensive bilateral pulmonary opacities most pronounced in the central and lower lung distribution. Given the distribution, favors probable rather significant perihilar and pulmonary edema. Small bilateral pleural effusions. Superimposed areas of infiltrate particularly the right lung base would be difficult to exclude. Surgical clips over the left axilla. IMPRESSION: 1. Development of rather extensive more central and lower lobe opacities. The distribution which favors a rather significant perihilar and pulmonary edema. Superimposed infiltrate however not excluded. Followup imaging is recommended until resolution. Dictated on workstation # [id number] Dict: 04/13/23 0835 Trans: 04/13/23 0844 CV [id number] Interpreted by: RICHIE GUILLEN DO Electronically signed by: ECG Impression ECG Initial ECG Rhythm: Normal Sinus A/P-Cardiology Assessment/Admission Diagnosis Pneumonia with sepsis H/O GIB with anemia, multiple blood transfusions - management is by Andrei (pt denies any recent bleeding) - Surgical service (Dr Forbes) had advised holding off on aspirin CAD - Cardiac cath of 12-02-22: Left main coronary artery: Ok; Left anterior descending coronary artery: Long, up to 90% in ostial and prox LAD; Left circumflex coronary artery: Long, up to 80 in prox portion of a large OM, and 80% distal left circumflex; Right coronary artery: Dominant with up to 80 distal (but prox to PDA and PL). LVEDP 20 mmHg. LVEF 60% - referred to [place] [facility] for eval for CABG - CV Surg felt coronaries to be too small for bypass, referred for high-risk intervention (Dr Rodriguez) who has advised medical therapy - Evaluated by Dr. Rodriguez at [place], per his note of 02-26-23, she is not palencia itable candidate for high risk percutaneous intervention - he advises continued medical tx PAF - first dx on 02-12-[address] Rodriguez - Cardioverted by Dr. 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 Torres Discussion and Recomendations Respiratory distres - likely multi-factorial d/t ?pnemonia with sepsis and chronic ?diastolic heart failure Management of sepsis is per medical services Treat HF with diuretics Monitor lab closely PAF - currently SR - not suitable for OAC for reasons noted above - continue Amiodarone CAD - continue ASA, Imdur Further recs will be based on her hospital course We would like to thank medical services for this consult ERIKA MEDINA Apr 13, 2023 09:24
[2023-04-13] MEDS ORDERED: ASPIRIN 81 MG CHEWABLE TABLET PO NR (10:00)
[2023-04-13] MEDS: inSUlin ASPART 1 UNIT/0.01 ML (PER UNIT) SC SCH ×3 (11:32→21:10)
--- NOTE | 2023-04-13 12:27 | Consultation-Cardiology ---
HPI-Cardiology Cardiology Consultation: Date of Consultation 04/13/23 Time Seen by a Provider: 09:30 Date of Admission Attending Physician Daphne Torres MD Admitting Physician Admitting Physician: Tameka Wolfe MD Attending Physician: Tameka Wolfe MD Consulting Physician MAXIM WRIGHT MD, MA, FACP, FACC, FSCAI, CCDS HPI: Chief Complaint: Respiratory distress Ms. Leger is an 83 yr old female admitted to 508 from the ED d/t increasing dyspnea. She states she woke up at 4:00 this morning and could not catch her breath. She reports freq non-productive cough. She states she was scheduled for a bone marrow bx today. She reports she has not missed any of her medications. She denies any c/o CP or palpitations. She reports bilat LE swelling which she feels has been getting worse the last couple days. No c/o n/v/d. No c/o fever or chills. Review of Systems-Cardiology Review of Systems Constitutional: No chills; malaise Eyes: No vision change Ears/Nose/Throat: No epistaxis, No recent hearing loss Respiratory: As described under HPI Cardiovascular: As described under HPI Gastrointestinal: No constipation, No diarrhea, No nausea, No vomiting Genitourinary: No dysuria, No hematuria Psychiatric/Neurological: numbness (petechial rash to legs ) Hematologic: anemia REV-Ccaljy-Miykge Hx Patient Social History Smoking Status: Former Smoker Alcohol Use?: No Pt feels they are or have been: No Immunizations Up To Date Tetanus Booster (TDap): Unknown Date of Pneumonia Vaccine: Jun 09, 2016 Date of Influenza Vaccine: Jun 09, 2016 Past Medical History PMH As described under Assessment. Family Medical History Family Medical History: She reports her sister had a CVA Family History: Cancer 09 SISTER Family history: Diabetes mellitus 03 MOTHER Stroke 03 MOTHER Allergies and Home Medications Allergies Coded Allergies: Vntgezh-MPY-RuU Reductase Inhibitor (Unverified Allergy, Mild, MUSCLE PAIN, 03/09/18) adhesive (Unverified Allergy, Unknown, 03/09/18) lisinopril (Unverified Adverse Reaction, Mild, COUGH, 03/09/18) Patient Home Medication List Home Medication List Reviewed: Yes Acetaminophen (Tylenol Extra Strength) 500 Mg Tablet, 1,000 MG PO Q8H PRN for PAIN-MILD (1-4), (Reported) Entered as Reported by: NURA DENNIS on 12/02/22 1210 Alirocumab (Praluent Pen) 75 Mg/Ml Pen.injctr, 75 MG SQ [id number], (Reported) Entered as Reported by: NURA DENNIS on 06/23/22 1430 Carboxymethylcellulos/Glycerin (Refresh Relieva 0.5-0.9% Drop) 0.5 %-0.9 % Drops, 1 DROP OS QID PRN for DRY EYES, (Reported) Entered as Reported by: NURA DENNIS on 12/02/22 1207 Carboxymethylcellulose Sodium (Refresh Tears) 0.5 % Drops, 1 DROP OD QID PRN for DRY EYES, (Reported) Entered as Reported by: NURA DENNIS on 06/23/22 1428 Carvedilol (Carvedilol) 12.5 Mg Tablet, 12.5 MG PO BID, (Reported) Entered as Reported by: CRISTIN JEFFREY on 12/10/22 1041 Cholecalciferol (Vitamin D3) (Vitamin D3) 25 Mcg (1000 Unit) Tablet, 50 MCG PO BID, (Reported) Entered as Reported by: NURA DENNIS on 12/02/22 1207 Clobetasol Propionate (Clobetasol Propionate) 0.05 % Cream..g., 1 APPLIC TP BID, (Reported) Entered as Reported by: NURA DENNIS on 12/02/22 1207 Dextrose (Glucose) 4 Gram Tab.chew, 4 GM PO UD PRN for HYPOGLYCEMIA, (Reported) Entered as Reported by: NURA DENNIS on 06/23/22 1437 Diclofenac Sodium (Diclofenac Sodium) 1 % Gel..gram., 1 APPLIC TOP QID PRN for PAIN-BREAKTHROUGH, (Reported) Entered as Reported by: CRISTIN JEFFREY on 12/10/22 1041 Furosemide (Furosemide) 20 Mg Tablet, 20 MG PO DAILY, (Reported) Entered as Reported by: NURA DENNIS on 12/02/22 1207 Insulin Glargine-Yfgn (Semglee (Yfgn) Pen) 100 Unit/Ml (3 Ml) Insuln.pen, 28 UNIT SQ BID, (Reported) Entered as Reported by: NURA DENNIS on 06/23/22 1432 Levothyroxine Sodium (Levothyroxine Sodium) 75 Mcg Tablet, 75 MCG PO DAILY, (Reported) Entered as Reported by: CHRISTIANO LOPEZ on 03/09/18 1438 Loratadine (Loratadine) 10 Mg Tablet, 10 MG PO DAILY, (Reported) Entered as Reported by: CHRISTIANO LOPEZ on 03/09/18 1438 Nitroglycerin (Nitroglycerin) 0.4 Mg Tab.subl, 0.4 MG SL UD PRN for CHEST PAIN, (Reported) Entered as Reported by: CRISTIN JEFFREY on 12/10/22 1041 Oxybutynin Chloride (Oxybutynin Chloride ER) 10 Mg Tab.er.24, 10 MG PO DAILY, (Reported) Entered as Reported by: CHRISTIANO LOPEZ on 10/30/16 1252 Pantoprazole Sodium (Pantoprazole Sodium) 40 Mg Tablet.dr, 40 MG PO DAILY Prescribed by: MICKEY BLOUNT on 12/17/22 1238 Pioglitazone HCl (Pioglitazone HCl) 45 Mg Tablet, 45 MG PO DAILY, (Reported) Entered as Reported by: NURA DENNIS on 06/23/22 1433 Polyethylene Glycol 3350 (Miralax) 17 Gram Powd.pack, 17 GM PO DAILY, (Reported) Entered as Reported by: CRISTIN JEFFREY on 12/10/22 1041 Potassium Chloride (Potassium Chloride) 10 Meq Capsule.er, 10 MEQ PO DAILY, (Reported) Entered as Reported by: CRISTIN JEFFREY on 12/10/22 1041 Urea (Urea) 20 % Cream..g., 1 APPLIC TOP UD PRN for ITCHING, (Reported) Entered as Reported by: CRISTIN JEFFREY on 12/10/22 1045 Vit C/E/Zn/Coppr/Lutein/Zeaxan (Preservision Areds 2 Softgel) 250MG-90MG Capsule, 1 EACH PO BID, (Reported) Entered as Reported by: CHRISTIANO LOPEZ on 10/30/16 1252 Physical Exam-Cardiology Physical Exam Vital Signs/I&O 04/13/23 04/13/23 04/13/23 04/13/23 07:39 07:39 08:06 09:14 Pulse 78 91 Resp 39 27 B/P (MAP) 182/95 (124) 159/88 Pulse Ox 95 95 96 O2 Delivery Room Air Nasal Cannula Nasal Cannula Nasal Cannula O2 Flow Rate 4.00 4.00 4.00 04/13/23 04/13/23 09:37 12:02 Temp 35.9 Pulse 61 Resp 24 B/P (MAP) 153/72 (99) Pulse Ox 97 O2 Delivery Nasal Cannula Nasal Cannula O2 Flow Rate 4.00 4.00 Capillary Refill : Less Than 3 Seconds Constitutional: AAO x 3, well-developed, well-nourished HEENT: PERRL, hearing is well preserved, oral hygience is good Neck: No carotid bruit; carotid pulses are 2 + bilaterally Respiratory: No accessory muscle use, No respiratory distress; chest expansion is symmetric, crackles (lower lobes), rhonchi (scattered), other (orthopneic) Gastrointestinal: No tender; soft, round; No guarding; audible bowel sounds Extremities: other (mild to mod LE swelling) Skin: other (petechial rash to legs bilat) Data Review Labs Laboratory Tests 04/13/23 07:54: White Blood Count 4.2L, Red Blood Count 3.98, Hemoglobin 10.8L, Hematocrit 36, Mean Corpuscular Volume 91, Mean Corpuscular Hemoglobin 27, Mean Corpuscular Hemoglobin Concent 30L, Red Cell Distribution Width 23.1H, Platelet Count 130, Mean Platelet Volume 9.5, Immature Granulocyte % (Auto) 0, Neutrophils (%) (Auto) 70, Lymphocytes (%) (Auto) 18, Monocytes (%) (Auto) 6, Eosinophils (%) (Auto) 5, Basophils (%) (Auto) 1, Neutrophils # (Auto) 2.9, Lymphocytes # (Auto) 0.8L, Monocytes # (Auto) 0.2, Eosinophils # (Auto) 0.2, Basophils # (Auto) 0.0, Immature Granulocyte # (Auto) 0.0, Prothrombin Time 14.4, INR Comment 1.1, Activated Partial Thromboplast Time 27, Sodium Level 136, Potassium Level 4.3, Chloride Level 103, Carbon Dioxide Level 23, Anion Gap 10, Blood Urea Nitrogen 22H, Creatinine 1.46H, Estimat Glomerular Filtration Rate 36, BUN/Creatinine Ratio 15, Glucose Level 372H, Lactic Acid Level 2.01*H, Calcium Level 9.4, Corrected Calcium 9.4, Magnesium Level 2.0, Total Bilirubin 1.2H, Aspartate Amino Transf (AST/SGOT) 22, Alanine Aminotransferase (ALT/SGPT) 28, Alkaline Phosphatase 120, Troponin I < 0.028, B-Type Natriuretic Peptide 1287.9H, Total Protein 6.8, Albumin 4.0 04/13/23 07:59: Influenza Type A (RT-PCR) Not Detected, Influenza Type B (RT-PCR) Not Detected, SARS-CoV-2 RNA (RT-PCR) Not Detected 04/13/23 10:52: Glucometer 314H 04/13/23 11:30: Lactic Acid Level 0.61 A/P-Cardiology Assessment/Admission Diagnosis Pneumonia with sepsis H/O GIB with anemia, multiple blood transfusions - management is by Andrei (pt denies any recent bleeding) - Surgical service (Dr Forbes) had advised holding off on aspirin CAD, inoperable - Cardiac cath of 12-02-22: Left main coronary artery: Ok; Left anterior descending coronary artery: Long, up to 90% in ostial and prox LAD; Left circumflex coronary artery: Long, up to 80 in prox portion of a large OM, and 80% distal left circumflex; Right coronary artery: Dominant with up to 80 distal (but prox to PDA and PL). LVEDP 20 mmHg. LVEF 60% - referred to [place] [facility] for eval for CABG - CV Surg felt coronaries to be too small for bypass, referred for high-risk intervention (Dr Rodriguez) who has advised medical therapy - Evaluated by Dr. Rodriguez at [place], per his note of 02-26-23, she is not suitable candidate for high risk percutaneous intervention - he advises continued medical tx PAF - first dx on 02-12-[address] Rodriguez - Cardioverted by Dr. 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 Torres Discussion and Recomendations Very complex management due to multiple comorbidities that include advanced but inoperable CAD Respiratory distres - likely multi-factorial d/t ?pnemonia with sepsis and chronic ?diastolic heart failure Management of sepsis is per medical services Treat HF with diuretics Monitor lab closely PAF - currently SR - not suitable for OAC for reasons noted above - continue Amiodarone CAD - continue ASA, Imdur Further recs will be based on her hospital course We would like to thank medical services for this consult MAXIM WRIGHT MD FACP FAC CCDS Apr 13, 2023 12:27
[2023-04-13] MEDS ORDERED: CHOL200074 PO (15:09)
[2023-04-13] MEDS ORDERED: AMLO-250 PO (15:09)
[2023-04-13] MEDS ORDERED: ISOS30TA82 PO (15:09)
[2023-04-13] MEDS ORDERED: CARV25TA PO (15:09)
[2023-04-13] MEDS ORDERED: ASPI-1238 PO (15:09)
[2023-04-13] MEDS ORDERED: OMEP20TA56 PO (15:09)
[2023-04-13] MEDS ORDERED: LOSA50TA63 PO (15:09)
[2023-04-13] MEDS ORDERED: FURO40TA4 PO (15:09)
[2023-04-13] MEDS ORDERED: AMIO200T65 PO (15:09)
[2023-04-13] MEDS ORDERED: POTA-330 PO (15:09)
[2023-04-13] MEDS ORDERED: LIDO5CRE24 TP (15:11)
--- NOTE | 2023-04-13 15:55 | History & Physical-Hospitalist ---
History of Present Illness HPI/Chief Complaint Leonora Leger is an 83 year old female with PMH HTN, T2DM, HLD, AFib, CHF, CAD, hypothyroidism, NHL, history of recurrent GI bleed, who presented with shortness of breath. She also had a non-productive cough. She denies fevers and chills. She denies chest pain. She denies abdominal pain, nausea, vomiting, and diarrhea . She has no other complaints or concerns. She is not on anticoagulation for AFib due to recurrent GI bleeding. 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 She has a histroy of non-Hodgkin's lymphoma and follows with Dr. Torres. Source: patient Exam Limitations: no limitations Date Seen 04/13/23 Time Seen by a Provider: 10:30 Attending Physician Daphne Torres MD PCP Admitting Physician: Tameka Grigsby MD Attending Physician: Tameka Grigsby MD Referring Physician Date of Admission Apr 13, 2023 at 09:06 Home Medications & Allergies Home Medications Reviewed patient Home Medication Reconciliation performed by pharmacy medication reconciliations photogrammetric technician and/or nursing. Patients Allergies have been reviewed. Allergies Allergies Coded Allergies [id number] Reductase Inhibitor (Unverified Allergy, Mild, MUSCLE PAIN, 03/09/18) adhesive (Unverified Allergy, Unknown, 03/09/18) lisinopril (Unverified Adverse Reaction, Mild, COUGH, 03/09/18) Past [id number]-[id number] Hx Patient Social History Tobacco Use?: No Smoking Status: Former Smoker Use of E-Cig and/or Vaping dev: No Substance use?: No Alcohol Use?: No Pt feels they are or have been: No Immunizations Up To Date Date of Influenza Vaccine: Jun 09, 2016 Tetanus Booster (TDap): Unknown Hepatitis A: No Hepatitis B: No Date of Pneumonia Vaccine: Jun 09, 2016 Seasonal Allergies Seasonal Allergies: Yes (MILD) Current Status status: No status: No Advance Directives: Yes Advance Directive Location: "SOMEWHERE" Communicates: Verbally Primary Language: Northern Irish Preferred Spoken Language: Northern Irish Is interpretation needed?: No Implanted or Applied Medical D: Port-a-cath Past Medical History Surgeries: Abdominal, Adenoidectomy, Bladder Surgery, Cardiac, Hysterectomy, Oophorectomy, Tonsillectomy Coronary Artery Disease, High Cholesterol, Hypertension Stroke 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 Sexually Transmitted Disease: No HIV/AIDS: No Diverticulosis Arthritis Diabetes, Insulin dep, Hypothyroidsim Loss of Vision: Bilateral Hearing Impairment: Denies Skin Did You Recieve Any Treatments: Yes What Type of Treatment Did You: Surgical Intervention Adverse Reaction/Blood Tranf: No (N/A) Family Medical History Cancer 09 SISTER Family history: Diabetes mellitus 03 MOTHER Stroke 03 MOTHER No Pertinent Family Hx Review of Systems Constitutional: no symptoms reported Respiratory: cough, short of breath Cardiovascular: no symptoms reported Gastrointestinal: no symptoms reported Physical Exam Physical Exam Vital Signs Vital Signs - First Documented 04/13/23 04/13/23 07:39 12:02 Temp 35.9 Pulse 78 Resp 39 B/P (MAP) 182/95 (124) Pulse Ox 95 O2 Delivery Room Air O2 Flow Rate 4.00 Capillary Refill : Less Than 3 Seconds Height, Weight, BMI Height: 5'8.00" Weight: 213lbs. 0.0oz. 96.130432xn; 42.59 BMI Method:Stated General Appearance: No Apparent Distress, Obese HEENT: PERRL/EOMI, Pharynx Normal Neck: Normal Inspection, Supple Respiratory: No Respiratory Distress, Crackles Cardiovascular: Regular Rate, Rhythm, No Murmur Gastrointestinal: Normal Bowel Sounds, Non Tender, Soft Extremity: Normal Inspection, Pedal Edema Neurologic/Psychiatric: Alert, Normal Mood/Affect Skin: Normal Color, Warm/Dry Results Results/Procedures Labs Laboratory Tests 04/13/23 07:54 Patient resulted labs reviewed. Imaging: Reviewed Imaging Films, Reviewed Imaging Report Assessment/Plan Admission Diagnosis Acute respiratory failure with hypoxia Admission Status: Inpatient Order (span 2 midnights) Reason for Inpatient Admission: Pulmonary edema Assessment and Plan Acute respiratory failure with hypoxia Acute pulmonary edema Acute HFpEF CXR consistent with pulmonary edema IV Lasix Supplemental oxygen as needed Cardiology consulted, follows with Dr. Sharma Not septic, no evidence of pneumonia HTN T2DM HLD Hypothyroidism NHL AFib CAD Continue home meds as able ocne med rec completed DVT prophylaxis: Lovenox Diagnosis/Problems Diagnosis/Problems (1) Respiratory failure Status: Acute Qualifiers: Chronicity: acute Respiratory failure complication: hypoxia Qualified Codes: J96.01 - Acute respiratory failure with hypoxia (2) Pulmonary edema Status: Acute Qualifiers: Chronicity: acute Qualified Codes: J81.0 - Acute pulmonary edema (3) HTN (hypertension) Status: Acute (4) T2DM (type 2 diabetes mellitus) Status: Acute Qualifiers: Diabetes mellitus program director group work insulin use: with half-way use Diabetes mellitus complication status: with hyperglycemia Qualified Codes: E11.65 - Type 2 diabetes mellitus with hyperglycemia; Z79.4 - health science specialist (current) use of insulin (5) Obesity Status: Chronic TAMEKA GRIGSBY MD Apr 13, 2023 15:55
[2023-04-13] MEDS ORDERED: FUROSEMIDE INJECTION 40 MG/4 ML VIAL ONE (18:41)
[2023-04-13] MEDS ORDERED: ONDANSETRON INJECTION 4 MG/2 ML (SDV) ONE (18:41)
[2023-04-13] MEDS ORDERED: ACETAMINOPHEN 325 MG TABLET PO PRN (18:45)
[2023-04-13] MEDS ORDERED: BISACODYL 10 MG SUPPOSITORY PR PRN (18:45)
[2023-04-13] MEDS ORDERED: ONDANSETRON 4 MG ORAL DISSOLVE TABLET PO PRN (18:45)
[2023-04-13] MEDS ORDERED: CALCIUM CARBONATE 500 MG CHEW TABLET PO PRN (18:45)
[2023-04-13] MEDS ORDERED: MELATONIN 3 MG TABLET PO PRN (18:45)
[2023-04-13] MEDS ORDERED: LACTULOSE SYRUP 10GM/15ML 30ML UDC PO PRN (18:45)
[2023-04-13] MEDS ORDERED: ANTACID SUSPENSION 30 ML UDC PO PRN (18:45)
[2023-04-13] MEDS ORDERED: NS IV 500 ML 500 ML IV PRN (18:45)
[2023-04-13] MEDS ORDERED: ONDANSETRON INJECTION 4 MG/2 ML (SDV) IV PRN (18:45)
[2023-04-13] MEDS ORDERED: MILK OF MAGNESIA 400 MG/5 ML 30 ML UDC PO PRN (18:45)
[2023-04-13] MEDS ORDERED: RT-ALBUTEROL SULF 2.5 MG/3 ML PRE-MIX VIAL INH PRN (19:45)
[2023-04-13] MEDS: DOCUSATE SODIUM 100 MG CAPSULE PO SCH (21:11)
[2023-04-13] MEDS: inSUlin DETERMIR 1 UNIT/0.01 ML (CHARGE PER UNIT) SQ SCH (21:11)
[2023-04-13] MEDS: carvediloL 12.5 MG TABLET PO SCH (21:12)
[2023-04-13] MEDS: SENNOSIDES 8.6 MG TABLET PO SCH (21:12)
[2023-04-14] VITALS (7 sets, daily range): BP systolic 106–137; BP diastolic 48–64
[2023-04-14 04:25] LABS: POTASSIUM 3.9 MMOL/L (3.6-5.0)
[2023-04-14 04:26] LABS: CALCIUM 8.6 MG/DL (8.5-10.1)
[2023-04-14 04:30] LABS: CREATININE SERUM 1.22 MG/DL (0.60-1.30)
[2023-04-14 04:33] LABS: MAGNESIUM 1.8 MG/DL (1.6-2.4)
[2023-04-14] MEDS: POTASSIUM CL 10MEQ/50ML IVPB 50 ML IV SCH (04:37)
[2023-04-14] MEDS: POTASSIUM BICARB 20 MEQ effervescent TABLET PO SCH (04:37)
[2023-04-14] MEDS: POTASSIUM CHLORIDE 20 MEQ TABLET PO SCH (04:37)
[2023-04-14] MEDS: MAGNESIUM 1 GM/100 ML IVPB 100 ML IV SCH ×3 (06:02→08:25)
[2023-04-14] MEDS: LEVOTHYROXINE 75 MCG TABLET PO SCH (06:14)
[2023-04-14] MEDS: inSUlin ASPART 1 UNIT/0.01 ML (PER UNIT) SC SCH ×4 (06:16→21:20)
[2023-04-14] MEDS ORDERED: POTASSIUM CHLORIDE 20 MEQ TABLET PO ONE (08:00)
[2023-04-14] MEDS: inSUlin DETERMIR 1 UNIT/0.01 ML (CHARGE PER UNIT) SQ SCH ×2 (08:26→21:20)
[2023-04-14] MEDS: LORATADINE 10 MG TABLET PO SCH (08:26)
[2023-04-14] MEDS: PANTOPRAZOLE 20 MG TABLET PO SCH (08:26)
[2023-04-14] MEDS: ASPIRIN 81 MG CHEWABLE TABLET PO SCH (08:26)
[2023-04-14] MEDS: LOSARTAN 25 MG TABLET PO SCH (08:26)
[2023-04-14] MEDS: carvediloL 12.5 MG TABLET PO SCH ×2 (08:26→21:19)
[2023-04-14] MEDS: OXYBUTYNIN 5 MG TABLET PO SCH ×2 (08:26→21:19)
[2023-04-14] MEDS: ISOSORBIDE MONONITRATE 30 MG TABLET PO SCH (08:26)
[2023-04-14] MEDS: DOCUSATE SODIUM 100 MG CAPSULE PO SCH ×2 (08:30→21:20)
[2023-04-14] MEDS: AMIODARONE 200 MG TABLET PO SCH (08:30)
[2023-04-14] MEDS: SENNOSIDES 8.6 MG TABLET PO SCH ×2 (08:30→21:19)
[2023-04-14] MEDS ORDERED: FUROSEMIDE INJECTION 40 MG/4 ML VIAL IVP SCH (09:00)
[2023-04-14] MEDS ORDERED: NON-FORMULARY MEDICATION 1 EA EA (Oxybutynin Chloride (Oxybutynin Chloride ER) 10 MG) PO SCH (09:00)
--- NOTE | 2023-04-14 09:59 | Diagnostic Imaging Report ---
INDICATION: Pulmonary edema. COMPARISON: 04/13/2023 TECHNIQUE: Single radiograph of the chest dated 04/14/2023. FINDINGS: Right-sided Port-A-Cath is again identified and stable. The cardiac silhouette is stable and mildly enlarged. Improved central pulmonary vascular congestion. Improved though persisting bilateral mixed interstitial and airspace opacities. Trace bibasilar pleural effusions. No pneumothorax. Surgical clips overlying left axilla. No acute osseous abnormality. IMPRESSION: Constellation of findings is felt to relate to improving congestive heart failure/volume overload with improving though persisting pulmonary edema and trace pleural effusions. Superimposed infection not excluded. Recommend continued radiographic follow-up. Dictated by: Dictated on workstation # [id number]
--- NOTE | 2023-04-14 10:32 | Progress Note - Cardiology ---
Cardiology SOAP Progress Note Subjective: Lying in bed States her breathing is much better than yesterday No c/o CP or palpitations Objective: I&O/Vital Signs 04/15/23 04/15/23 04/15/23 04/15/23 00:00 01:00 04:00 05:44 Temp 36.2 Pulse 63 61 67 Resp 17 17 B/P (MAP) 118/58 (78) 138/71 (93) Pulse Ox 89 100 O2 Delivery Nasal Cannula Nasal Cannula O2 Flow Rate 2.00 2.00 04/15/23 04/15/23 06:51 07:38 Temp 36.0 Pulse 63 61 Resp 16 B/P (MAP) 140/70 (93) Pulse Ox 98 O2 Delivery Nasal Cannula O2 Flow Rate 2.00 04/15/23 00:00 Intake Total 1100 ml Output Total 1250 ml Balance -150 ml Weight (Pounds): 213 Weight (Ounces): 0.0 Weight (Calculated Kilograms): 96.283597 Constitutional: AAO x 3, well-developed, well-nourished Respiratory: No accessory muscle use, No respiratory distress; chest expansion is symmetric, other (good air entry) Cardiovascular: regular rate-rhythm Gastrointestional: No tender; soft, round; No guarding; audible bowel sounds Extremities: other (mild LE swelling) Neurologic/Psychiatric: other (moves all extremities) Skin: other (petechial rash to legs bilat) Results/Procedures: Labs Laboratory Tests 04/14/23 10:17: Glucometer 206H 04/14/23 15:26: Glucometer 158H 04/14/23 20:52: Glucometer 218H 04/15/23 05:45: Sodium Level 137, Potassium Level 4.2, Chloride Level 101, Carbon Dioxide Level 29, Anion Gap 7, Blood Urea Nitrogen 25H, Creatinine 1.39H, Estimat Glomerular Filtration Rate 38, BUN/Creatinine Ratio 18, Glucose Level 158H, Calcium Level 8.8, Magnesium Level 2.2 Microbiology 04/13/23 Blood Culture - Preliminary, Resulted No growth A/P: Assessment: Sepsis - resolved Respiratory distress - improved with IV diuretics H/O GIB with anemia, multiple blood transfusions - management is by Andrei (pt denies any recent bleeding) - Surgical service (Dr Forbes) had advised holding off on aspirin CAD, inoperable - Cardiac cath of 12-02-22: Left main coronary artery: Ok; Left anterior descending coronary artery: Long, up to 90% in ostial and prox LAD; Left circumflex coronary artery: Long, up to 80 in prox portion of a large OM, and 80% distal left circumflex; Right coronary artery: Dominant with up to 80 distal (but prox to PDA and PL). LVEDP 20 mmHg. LVEF 60% - referred to [place] [facility] for eval for CABG - CV Surg felt coronaries to be too small for bypass, referred for high-risk intervention (Dr Rodriguez) who has advised medical therapy - Evaluated by Dr. Rodriguez at [place], per his note of 02-26-23, she is not suitable candidate for high risk percutaneous intervention - he advises continued medical tx PAF - first dx on 02-12-[address] Rodriguez - Cardioverted by Dr. Rodriguez on 02-18-23 - Not suitable for correction OAC d/t h/o freq GIB that has required multiple transfusions in the past Obesity with obesity-hypoventilation syndrome DM II Hyperlipidemia - treated with PCSK-9 inhib Hypertension Non-Hodgkin's Lymphoma - following with Dr. Torres Plan: Very complex management due to multiple comorbidities that include advanced but inoperable CAD Management of sepsis is per medical services Treat HF with diuretics Monitor lab closely PAF - currently SR - not suitable for OAC for reasons noted above CAD - continue Tomer MONTES HEATHER L ARNP Apr 14, 2023 10:32
--- NOTE | 2023-04-14 14:25 | Progress Note - Hospitalist ---
Subjective HPI/CC On Admission Date Seen by Provider: Apr 14, 2023 Time Seen by Provider: 09:35 Leonora Leger is an 83 year old female with PMH HTN, T2DM, HLD, AFib, CHF, CAD, hypothyroidism, NHL, history of recurrent GI bleed, who presented with shortness of breath. She also had a non-productive cough. She denies fevers and chills. She denies chest pain. She denies abdominal pain, nausea, vomiting, and diarrhea. She has no other complaints or concerns. She is not on anticoagulation for AFib due to recurrent GI bleeding. 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 She has a histroy of non-Hodgkin's lymphoma and follows with Dr. Torres. Subjective/Events-last exam She is feeling better. She denies shortness of breath. She has no complaints. Focused Exam Lactate Level 04/13/23 07:54: Lactic Acid Level 2.01*H 04/13/23 11:30: Lactic Acid Level 0.61 Objective Exam Vital Signs Vital Signs Date Time Temp Pulse Resp B/P (MAP) Pulse Ox O2 Delivery O2 Flow Rate FiO2 04/14/23 12:31 57 04/14/23 11:22 36.3 24 106/50 (68) 96 Nasal Cannula 3.00 04/13/23 19:26 36 Capillary Refill : Less Than 3 Seconds General Appearance: No Apparent Distress, Obese Respiratory: Lungs Clear, No Respiratory Distress Cardiovascular: Regular Rate, Rhythm, No Murmur Gastrointestinal: Normal Bowel Sounds, Soft Extremity: Normal Inspection, Pedal Edema Neurologic/Psychiatric: Alert, Normal Mood/Affect Results/Procedures Lab Laboratory Tests 04/14/23 04:00 Patient resulted labs reviewed. Imaging: Reviewed Imaging Films, Reviewed Imaging Report Assessment/Plan Assessment and Plan Assess & Plan/Chief Complaint Acute respiratory failure with hypoxia Acute pulmonary edema Acute HFpEF CXR consistent with improving pulmonary edema Continue IV Lasix Supplemental oxygen as needed Cardiology following Not septic, no evidence of pneumonia HTN T2DM HLD Hypothyroidism NHL AFib CAD Continue home meds as able DVT prophylaxis: Lovenox Diagnosis/Problems Diagnosis/Problems (1) Respiratory failure Status: Acute Qualifiers: Chronicity: acute Respiratory failure complication: hypoxia Qualified Codes: J96.01 - Acute respiratory failure with hypoxia (2) Pulmonary edema Status: Acute Qualifiers: Chronicity: acute Qualified Codes: J81.0 - Acute pulmonary edema (3) HTN (hypertension) Status: Acute (4) T2DM (type 2 diabetes mellitus) Status: Acute Qualifiers: 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
[2023-04-14] MEDS ORDERED: SPIRONOLACTONE 25 MG (ALDACTONE) TAB PO ONE (15:00)
--- NOTE | 2023-04-14 16:01 | Progress Note - Cardiology ---
Cardiology SOAP Progress Note Subjective: Shortness of breath present but better No cp or palp or syncope No n/v/d No focal weakness Gen weakness present Objective: I&O/Vital Signs 04/14/23 04/14/23 04/14/23 04/14/23 04:00 07:01 07:09 08:00 Temp 36.5 Pulse 64 65 64 Resp 20 21 B/P (MAP) 110/54 (72) 128/57 (80) Pulse Ox 95 96 O2 Delivery Nasal Cannula Nasal Cannula Nasal Cannula O2 Flow Rate 4.00 4.00 3.00 04/14/23 04/14/23 11:22 12:31 Temp 36.3 Pulse 61 57 Resp 24 B/P (MAP) 106/50 (68) Pulse Ox 96 O2 Delivery Nasal Cannula O2 Flow Rate 3.00 04/14/23 00:00 Intake Total 700 ml Output Total 1750 ml Balance -1050 ml Weight (Pounds): 213 Weight (Ounces): 0.0 Weight (Calculated Kilograms): 96.070868 Constitutional: AAO x 3, well-developed, well-nourished Respiratory: No accessory muscle use, No respiratory distress; chest expansion is symmetric, other (good air entry) Cardiovascular: regular rate-rhythm Gastrointestional: No tender; soft, round; No guarding; audible bowel sounds Extremities: other (mild LE swelling) Neurologic/Psychiatric: other (moves all extremities) Skin: other (petechial rash to legs bilat) Results/Procedures: Labs Laboratory Tests 04/13/23 20:32: Glucometer 300H 04/14/23 04:00: Sodium Level 138, Potassium Level 3.9, Chloride Level 102, Carbon Dioxide Level 28, Anion Gap 8, Blood Urea Nitrogen 21H, Creatinine 1.22, Estimat Glomerular Filtration Rate 45, BUN/Creatinine Ratio 17, Glucose Level 236H, Calcium Level 8.6, Magnesium Level 1.8 04/14/23 05:57: Glucometer 199H 04/14/23 10:17: Glucometer 206H 04/14/23 15:26: Glucometer 158H Microbiology 04/13/23 Blood Culture - Preliminary, Resulted No growth A/P: Assessment: Sepsis - resolved Respiratory distress - probably related to ac diastolic CHF, improved with IV diuretics - Echo on 04/13/23: Mild conc LVH. LVEF 50-55%. Moderately dilated LA. Mild MAC. Trivial AI. PASP 40-45 mmHg H/O GIB with anemia, multiple blood transfusions - management is by Andrei (pt denies any recent bleeding) - Surgical service (Dr Forbes) had advised holding off on aspirin CAD, inoperable - Cardiac cath of 12-02-22: Left main coronary artery: Ok; Left anterior descending coronary artery: Long, up to 90% in ostial and prox LAD; Left circumflex coronary artery: Long, up to 80 in prox portion of a large OM, and 80% distal left circumflex; Right coronary artery: Dominant with up to 80 distal (but prox to PDA and PL). LVEDP 20 mmHg. LVEF 60% - referred to [facility] for eval for CABG - CV Surg felt coronaries to be too small for bypass, referred for high-risk intervention (Dr Rodriguez) who has advised medical therapy - Evaluated by Dr. Rodriguez at [place], per his note of 02-26-23, she is not suitable candidate for high risk percutaneous intervention - he advises continued medical tx PAF - first dx on 02-12-[address] Rodriguez - Cardioverted by Dr. 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 Torres Plan: Very complex management due to multiple comorbidities that include advanced but inoperable CAD Management of sepsis is per medical services Treat HF with diuretics. Add spironolactone Monitor lab closely PAF - currently SR - not suitable for OAC for reasons noted above CAD - continue Tomer MONTES ALI MD FACP FAC CCDS Apr 14, 2023 16:01
[2023-04-14] MEDS: FUROSEMIDE INJECTION 40 MG/4 ML VIAL IVP SCH (16:38)
[2023-04-15] VITALS (7 sets, daily range): BP systolic 113–140; BP diastolic 50–71
[2023-04-15 06:06] LABS: POTASSIUM 4.2 MMOL/L (3.6-5.0)
[2023-04-15 06:08] LABS: CALCIUM 8.8 MG/DL (8.5-10.1)
[2023-04-15 06:12] LABS: CREATININE SERUM 1.39 MG/DL (0.60-1.30)
[2023-04-15 06:14] LABS: MAGNESIUM 2.2 MG/DL (1.6-2.4)
[2023-04-15] MEDS: POTASSIUM CL 10MEQ/50ML IVPB 50 ML IV SCH (06:34)
[2023-04-15] MEDS: inSUlin ASPART 1 UNIT/0.01 ML (PER UNIT) SC SCH ×4 (06:35→20:03)
[2023-04-15] MEDS: POTASSIUM CHLORIDE 20 MEQ TABLET PO SCH (06:35)
[2023-04-15] MEDS: MAGNESIUM 1 GM/100 ML IVPB 100 ML IV SCH (06:35)
[2023-04-15] MEDS: POTASSIUM BICARB 20 MEQ effervescent TABLET PO SCH (06:35)
[2023-04-15] MEDS: LEVOTHYROXINE 75 MCG TABLET PO SCH (06:43)
[2023-04-15] MEDS: FUROSEMIDE INJECTION 40 MG/4 ML VIAL IVP SCH (06:43)
[2023-04-15] MEDS: AMIODARONE 200 MG TABLET PO SCH (08:23)
[2023-04-15] MEDS: OXYBUTYNIN 5 MG TABLET PO SCH ×2 (08:23→21:22)
[2023-04-15] MEDS: ASPIRIN 81 MG CHEWABLE TABLET PO SCH (08:23)
[2023-04-15] MEDS: ISOSORBIDE MONONITRATE 30 MG TABLET PO SCH (08:23)
[2023-04-15] MEDS: SPIRONOLACTONE 25 MG (ALDACTONE) TAB PO SCH (08:24)
[2023-04-15] MEDS: PANTOPRAZOLE 20 MG TABLET PO SCH (08:24)
[2023-04-15] MEDS: LOSARTAN 25 MG TABLET PO SCH (08:24)
[2023-04-15] MEDS: LORATADINE 10 MG TABLET PO SCH (08:26)
[2023-04-15] MEDS: carvediloL 12.5 MG TABLET PO SCH ×2 (08:26→21:22)
[2023-04-15] MEDS: inSUlin DETERMIR 1 UNIT/0.01 ML (CHARGE PER UNIT) SQ SCH ×2 (08:26→21:22)
[2023-04-15] MEDS: SENNOSIDES 8.6 MG TABLET PO SCH ×2 (08:27→20:03)
[2023-04-15] MEDS: DOCUSATE SODIUM 100 MG CAPSULE PO SCH ×2 (08:27→20:03)
--- NOTE | 2023-04-15 09:30 | Progress Note - Cardiology ---
Cardiology SOAP Progress Note Subjective: Lying in bed States she feels her breathing is much better than at time of admission No c/o CP or palpitations Objective: I&O/Vital Signs 04/15/23 04/16/23 04/16/23 04/16/23 23:32 01:00 03:17 07:10 Temp 36.2 36.1 Pulse 74 67 69 69 Resp 11 17 B/P (MAP) 120/50 (73) 124/55 (78) Pulse Ox 99 99 O2 Delivery Nasal Cannula Nasal Cannula O2 Flow Rate 2.00 2.00 04/16/23 04/16/23 07:48 08:00 Temp 36.5 Pulse 76 Resp 23 B/P (MAP) 133/65 (87) Pulse Ox 98 95 O2 Delivery Nasal Cannula Nasal Cannula O2 Flow Rate 2.00 2.00 04/16/23 00:00 Intake Total 1150 ml Output Total 1200 ml Balance -50 ml Weight (Pounds): 213 Weight (Ounces): 0.0 Weight (Calculated Kilograms): 96.983874 Constitutional: AAO x 3, well-developed, well-nourished Respiratory: No accessory muscle use, No respiratory distress; chest expansion is symmetric, other (good air entry) Cardiovascular: regular rate-rhythm Gastrointestional: No tender; soft, round; No guarding; audible bowel sounds Extremities: other (mild LE swelling) Neurologic/Psychiatric: other (moves all extremities) Skin: other (petechial rash to legs bilat) Results/Procedures: Labs Laboratory Tests 04/15/23 10:37: Glucometer 193H 04/15/23 15:34: Glucometer 189H 04/15/23 20:00: Glucometer 169H 04/16/23 05:30: Sodium Level 135, Potassium Level 4.2, Chloride Level 100, Carbon Dioxide Level 28, Anion Gap 7, Blood Urea Nitrogen 27H, Creatinine 1.34H, Estimat Glomerular Filtration Rate 40, BUN/Creatinine Ratio 20, Glucose Level 221H, Calcium Level 8.7, Magnesium Level 2.0 Microbiology 04/13/23 Blood Culture - Preliminary, Resulted No growth A/P: Assessment: Sepsis - resolved Respiratory distress - probably related to ac diastolic CHF, improved with IV diuretics - Echo on 04/13/23: Mild conc LVH. LVEF 50-55%. Moderately dilated LA. Mild MAC. Trivial AI. PASP 40-45 mmHg H/O GIB with anemia, multiple blood transfusions - management is by Andrei (pt denies any recent bleeding) - Surgical service (Dr Forbes) had advised holding off on aspirin CAD, inoperable - Cardiac cath of 12-02-22: Left main coronary artery: Ok; Left anterior descending coronary artery: Long, up to 90% in ostial and prox LAD; Left circumflex coronary artery: Long, up to 80 in prox portion of a large OM, and 80 % distal left circumflex; Right coronary artery: Dominant with up to 80 distal (but prox to PDA and PL). LVEDP 20 mmHg. LVEF 60% - referred to [place] for eval for CABG - CV Surg felt coronaries to be too small for bypass, referred for high-risk intervention (Dr Rodriguez) who has advised medical therapy - Evaluated by Dr. Rodriguez at [place], per his note of 02-26-23, she is not suitable candidate for high risk percutaneous intervention - he advises continued medical tx PAF - first dx on 02-12-[address] Rodriguez - Cardioverted by Dr. Rodriguez on 02-18-23 - Not suitable for fdc OAC d/t h/o freq GIB that has required multiple transfusions in the past Obesity with obesity-hypoventilation syndrome DM II Hyperlipidemia - treated with PCSK-9 inhib Hypertension Non-Hodgkin's Lymphoma - following with Dr. Torres Plan: Very complex management due to multiple comorbidities that include advanced but inoperable CAD Management of sepsis is per medical services Continue diuretics and Aldactone Monitor lab closely PAF - currently SR - not suitable for OAC for reasons noted above CAD - continue Tomer MONTES HEATHER L ARNP Apr 15, 2023 09:30
--- NOTE | 2023-04-15 11:31 | Physical Therapy Evaluation ---
PT Evaluation-General Medical Diagnosis Admission Date Apr 13, 2023 at 09:06 Medical Diagnosis: Respiratory Distress Onset Date: Apr 13, 2023 Therapy Diagnosis Therapy Diagnosis: weakness; impaired mobility Height/Weight Height (Feet): 5 Height (Inches): 8.00 Weight (Pounds): 213 Weight (Ounces): 0.0 Precautions Precautions/Isolations: Fall Prevention, Standard Precautions Weight Bear Status Right Lower Extremity: Right Full Weight Bearing Left Lower Extremity: Left Full Weight Bearing Referral Physician: Tameka Wolfe Reason for Referral: Evaluation/Treatment Medical History Pertinent Medical History: Atrial Fib, Arthritis, CVA, DM, HTN, Hypothroidism, Lymphoma, OA Current History Pt admitted to the ER 04/13 with severe shortness of breath. Pt reports she immediately began feeling better after being placed on high amounts of oxygen. Currently patient reports feeling weak from bedrest. Social History Home: Single Level Current Living Status: Other Family Entry Into Home: Ramp PT Steps Into Home: 4 Prior Prior Level of Function SCALE: Activities may be completed with or without assistive devices. 0-Mxlpvcyibg-nxabfyk completes the activity by him/herself with no assistance from a helper. 5-Set-up or Clean-up Assistance-helper sets up or cleans up; patient completes activity. [place] assists only prior to or following the activity. 4-Supervision or Touching Assistance-helper provides verbal cues and/or touching/steadying and/or contact guard assistance as patient completes activity. Assistance may be provided throughout the activity or intermittently. 3-Partial/Moderate Assistance-helper does LESS THAN HALF the effort. [place] lifts, holds or supports trunk or limbs, but provides less than half the effort. 2-Substantial/Maximal Assistance-helper does MORE THAN HALF the effort. [place] lifts or holds trunk or limbs and provides more than half the effort. 5-Yfgioslmd-zttsiv does ALL the effort. Patient does none of the effort to complete the activity. Or, the assistance of 2 or more helpers is required for the patient to complete the activity. If activity was not attempted, code reason: 7-Patient Refused. 9-Not Applicable-not attempted and the patient did not perform the activity before the current illness, exacerbation or injury. 10-Not Attempted due to Environmental Limitations-(lack of equipment, weather restraints, etc.). 88-Not Attempted due to Medical Conditions or Safety Concerns. Bed Mobility: 6 Transfers (B,C,W/C): 6 Gait: 6 Stairs: 4 Indoor Mobility (Ambulation): Independent Stairs: Needed Some Help Prior Devices Use: Walker Prior Device Use: uses a stand up 4 wheel walker PT Evaluation-Current Subjective Pt reports no pain. She feels week from not moving for a few days. She expresses that she might have lack of bladder control since not having to sit on the toilet for a few days. Pt/Family Goals Plan to return home with family assist. Objective Patient Orientation: Normal For Age Attachments: Oxygen periwick catheter ROM/Strength ROM Lower Extremities WFL passive, lacks full AROM due to weakness Strength Lower Extremities hip flexion (B) 2/5, quads 3/5, ankles 4/5 Sensory Vision: Functional Hearing: Functional Sensation Right Lower Extremit: Impaired Sensation Left Lower Extremity: Impaired Transfers Roll Left to Right (QC): 3 Sit to Lying (QC): 1 Lying to Sitting/Side of Bed(Q: 1 Sit to Stand (QC): 2 Chair/Iuy-az-Npkyo Xfer(QC): 1 Pt required moderate assist of 2 for bed mobility, she was able to transition sit to stand with Mod A of 1 Gait Does the Patient Walk?: Yes Mode of Locomotion: Walk Walk 10 feet (QC): 4 Walk 50 ft with 2 Turns(QC): 4 Walk 150 ft (QC): 88 Walking 10ft/uneven surface-QC: 88 Gait Assistive Device: FWW Comments/Gait Description Walked 80ft with FWW and Min A for balance. Oxygen 2Lmin. Pt limited by UE fatigue. Pt incontinent of urine during all standing activity. Balance Sitting Static: Fair Sitting Dynamic: Fair Standing Static: Fair Standing Dynamic: Poor Assessment/Needs Pt is very weakn in (B) LEs, Left greater than right. Her leg weakness limits her ability to move in bed, transition to standing, and transfer. Pt's a mbulation stability and endurance is below her normal level due to prolonged bed rest. Pt will benefit from PT to improve strength and function to allow d/c to home with family. In her current condition it would be very difficult for a transition to home. Rehab Potential: Good PT Short Term Goals Short Term Goals Time Frame: Apr 17, 2023 Roll Left & Right: 4 Sit to lyin Lying to sitting on side of be: 4 Sit to stand: 4 Chair/dae-dc-vpasf transfer: 4 Walk 150 feet: 4 PT Detention Goals Detention Goals PT Detention Goals Time Frame: Apr 22, 2023 Roll Left & Right (QC): 6 Sit to Lying (QC): 6 Lying-Sitting on Side/Bed(QC): 6 Sit to Stand (QC): 6 Chair/Hnp-ga-Lmvsx Xfer(QC): 6 Toilet Transfer (QC): 6 Walk 150 ft (QC): 6 4 Steps (QC): 4 PT Plan Problem List Problem List: Activity Tolerance, Functional Strength, Balance, Gait, Transfer, Bed Mobility Treatment/Plan Treatment Plan: Continue Plan of Care Treatment Plan: Bed Mobility, Education, Functional Activity Timothy, Functional Strength, Gait, Therapeutic Exercise Treatment Duration: Apr 22, 2023 Frequency: 6 times per week Estimated Hrs Per Day: .25 hour per day Patient and/or Family Agrees t: Yes Discharge Recommendations Barriers to Progress none Target Placement ARU vs home depending on progress in the next 24 hours Time Time In: 1100 Time Out: 1135 DATE: Apr 15, 2023 Total Billed Treatment Time: 35 Total Billed Treatment visit, evaluation high complexity 35 min RAMSEY MADRID PT Apr 15, 2023 11:31
--- NOTE | 2023-04-15 12:32 | Progress Note - Cardiology ---
Cardiology SOAP Progress Note Subjective: No cp or palp or syncope Shortness of breath improving No n/v/d Gen weakness, better No focal weakness Objective: I&O/Vital Signs 04/15/23 04/15/23 04/15/23 04/15/23 01:00 04:00 05:44 06:51 Temp 36.2 Pulse 61 67 63 Resp 17 B/P (MAP) 138/71 (93) Pulse Ox 100 O2 Delivery Nasal Cannula O2 Flow Rate 2.00 04/15/23 04/15/23 04/15/23 07:38 08:00 11:53 Temp 36.0 36.2 Pulse 61 56 Resp 16 17 B/P (MAP) 140/70 (93) 113/57 (75) Pulse Ox 98 96 O2 Delivery Nasal Cannula Nasal Cannula Nasal Cannula O2 Flow Rate 2.00 2.00 2.00 04/15/23 00:00 Intake Total 1100 ml Output Total 1250 ml Balance -150 ml Weight (Pounds): 213 Weight (Ounces): 0.0 Weight (Calculated Kilograms): 96.532408 Constitutional: AAO x 3, well-developed, well-nourished Respiratory: No accessory muscle use, No respiratory distress; chest expansion is symmetric, other (good air entry) Cardiovascular: regular rate-rhythm Gastrointestional: No tender; soft, round; No guarding; audible bowel sounds Extremities: other (mild LE swelling) Neurologic/Psychiatric: other (moves all extremities) Skin: other (petechial rash to legs bilat) Results/Procedures: Labs Laboratory Tests 04/14/23 15:26: Glucometer 158H 04/14/23 20:52: Glucometer 218H 04/15/23 05:45: Sodium Level 137, Potassium Level 4.2, Chloride Level 101, Carbon Dioxide Level 29, Anion Gap 7, Blood Urea Nitrogen 25H, Creatinine 1.39H, Estimat Glomerular Filtration Rate 38, BUN/Creatinine Ratio 18, Glucose Level 158H, Calcium Level 8.8, Magnesium Level 2.2 04/15/23 10:37: Glucometer 193H Microbiology 04/13/23 Blood Culture - Preliminary, Resulted No growth Laboratory Tests 04/14/23 04:00 04/15/23 05:45 A/P: Assessment: Sepsis - resolved Respiratory distress - probably related to ac diastolic CHF, improved with IV diuretics - Echo on 04/13/23: Mild conc LVH. LVEF 50-55%. Moderately dilated LA. Mild MAC. Trivial AI. PASP 40-45 mmHg H/O GIB with anemia, multiple blood transfusions - management is by Andrei (pt denies any recent bleeding) - Surgical service (Dr Forbes) had advised holding off on aspirin CAD, inoperable - Cardiac cath of 12-02-22: Left main coronary artery: Ok; Left anterior descending coronary artery: Long, up to 90% in ostial and prox LAD; Left circumflex coronary artery: Long, up to 80 in prox portion of a large OM, and 80% distal left circumflex; Right coronary artery: Dominant with up to 80 distal (but prox to PDA and PL). LVEDP 20 mmHg. LVEF 60% - referred to [facility] for eval for CABG - CV Surg felt coronaries to be too small for bypass, referred for high-risk intervention (Dr Rodriguez) who has advised medical therapy - Evaluated by Dr. Rodriguez at [facility], per his note of 02-26-23, she is not suitable candidate for high risk percutaneous intervention - he advises con tinued medical tx PAF - first dx on 02-12-[address] Rodriguez - Cardioverted by Dr. 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 Torres Plan: Very complex management due to multiple comorbidities that include advanced but inoperable CAD Management of sepsis is per medical services Continue current cardiac regime Monitor lab closely Increase activity MAXIM WRIGHT MD FACP FAC CCDS Apr 15, 2023 12:32
--- NOTE | 2023-04-15 12:42 | Progress Note - Hospitalist ---
Subjective HPI/CC On Admission Date Seen by Provider: Apr 15, 2023 Time Seen by Provider: 10:15 Leonora Leger is an 83 year old female with PMH HTN, T2DM, HLD, AFib, CHF, CAD, hypothyroidism, NHL, history of recurrent GI bleed, who presented with shortness of breath. She also had a non-productive cough. She denies fevers and chills. She denies chest pain. She denies abdominal pain, nausea, vomiting, and diarrhea. She has no other complaints or concerns. She is not on anticoagulation for AFib due to recurrent GI bleeding. 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 She has a histroy of non-Hodgkin's lymphoma and follows with Dr. Torres. Subjective/Events-last exam She is feeling better. She has not been up walking. She did not sleep well. She denies shortness of breath. Focused Exam Lactate Level 04/13/23 07:54: Lactic Acid Level 2.01*H 04/13/23 11:30: Lactic Acid Level 0.61 Objective Exam Vital Signs Vital Signs Date Time Temp Pulse Resp B/P (MAP) Pulse Ox O2 Delivery O2 Flow Rate FiO2 04/15/23 11:53 36.2 56 17 113/57 (75) 96 Nasal Cannula 2.00 04/13/23 19:26 36 Capillary Refill : Less Than 3 Seconds General Appearance: No Apparent Distress, Obese Respiratory: Lungs Clear, No Respiratory Distress Cardiovascular: Regular Rate, Rhythm, No Murmur Gastrointestinal: Normal Bowel Sounds, Soft Extremity: Normal Inspection, Pedal Edema Neurologic/Psychiatric: Alert, Normal Mood/Affect Skin: Normal Color, Warm/Dry Results/Procedures Lab Laboratory Tests 04/15/23 05:45 Patient resulted labs reviewed. Imaging: Reviewed Imaging Films, Reviewed Imaging Report Assessment/Plan Assessment and Plan Assess & Plan/Chief Complaint Acute respiratory failure with hypoxia Acute pulmonary edema Acute HFpEF Transition to oral Lasix Home oxygen evaluation Cardiology following Not septic, no evidence of pneumonia Debility PT/OT IRU evaluation HTN T2DM HLD Hypothyroidism NHL AFib CAD Continue home meds as able DVT prophylaxis: Lovenox Diagnosis/Problems Diagnosis/Problems (1) Respiratory failure Status: Acute Qualifiers: Chronicity: acute Respiratory failure complication: hypoxia Qualified Codes: J96.01 - Acute respiratory failure with hypoxia (2) Pulmonary edema Status: Acute Qualifiers: Chronicity: acute Qualified Codes: J81.0 - Acute pulmonary edema (3) HTN (hypertension) Status: Acute (4) T2DM (type 2 diabetes mellitus) Status: Acute Qualifiers: 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
--- NOTE | 2023-04-15 14:13 | Occupational Therapy Eval ---
OT Evaluation-General/PLF Medical Diagnosis Admission Date Apr 13, 2023 at 09:06 Medical Diagnosis: Respiratory Distress Onset Date: Apr 13, 2023 Therapy Diagnosis Therapy Diagnosis: debility Height/Weight Height (Feet): 5 Height (Inches): 8.00 Weight (Pounds): 213 Weight (Ounces): 0.0 Precautions Precautions/Isolations: Fall Prevention, Standard Precautions Referral Physician: Tameka Wolfe Referral Reason: Evaluation/Treatment Medical History Pertinent Medical History: Atrial Fib, Arthritis, CVA, DM, HTN, Hypothroidism, Lymphoma, OA Reviewed History: Yes Social History Home: Single Level Current Living Status: Other Family Entry Into Home: Ramp Steps Into Home: 4 ADL-Prior Level of Function SCALE: Activities may be completed with or without assistive devices. 0-Whwdqabpil-scfhxhm completes the activity by him/herself with no assistance from a helper. 5-Set-up or Clean-up Assistance-helper sets up or cleans up; patient completes activity. [place] assists only prior to or following the activity. 4-Supervision or Touching Assistance-helper provides verbal cues and/or touching/steadying and/or contact guard assistance as patient completes ac tivity. Assistance may be provided throughout the activity or intermittently. 3-Partial/Moderate Assistance-helper does LESS THAN HALF the effort. [place] lifts, holds or supports trunk or limbs, but provides less than half the effort. 2-Substantial/Maximal Assistance-helper does MORE THAN HALF the effort. [place] lifts or holds trunk or limbs and provides more than half the effort. 2-Dafhabrft-kcusbk does ALL the effort. Patient does none of the effort to complete the activity. Or, the assistance of 2 or more helpers is required for the patient to complete the activity. If activity was not attempted, code reason: 7-Patient Refused. 9-Not Applicable-not attempted and the patient did not perform the activity before the current illness, exacerbation or injury. 10-Not Attempted due to Environmental Limitations-(lack of equipment, weather restraints, etc.). 88-Not Attempted due to Medical Conditions or Safety Concerns. ADL PLOF Comments Sleeps ion a recliner, occasional sleep in bed, gets dressed on EOB or on toilet. Self Care: Needed Some Help (with hygiene in hard to reach folds) Functional Cognition: Independent Drive Self: No OT Current Status Subjective Agreeable to OT, concerned w/ moving in bed d/t lines and tubes, Required reassurance of mobility Current Upper Extremity ROM Joint approximation and trunk flexion limited d/t excessive soft tissue Upper Extremity Coordination FAIR+ Upper Extremity Sensation INTACT Upper Extremity Strength +3/5 grossly ADL-Treatment ADL-Current Encouraged patient to sustain 02 use while performing ADL d/t decreased saturation to 84% w/ applying socks. Eating (QC): 6 Oral Hygiene (QC): 5 Shower/Bathe Self (QC): 7 Upper Body Dressing (QC): 3 Lower Body Dressing (QC): 2 On/Off Footwear (QC): 3 Toileting Hygiene (QC): 2 Other Treatments 02 education and breathing strategies. Education OT Patient Education: Correct positioning, Exercise program, Home exercise program, Modified ADL techniques, Progress toward Goal/Update tx plan, Purpose of tx/functional activities, Reviewed precautions, Rehab process, Safety issues, Transfer techniques Teaching Recipient: Patient, Family Teaching Methods: Demonstration, Discussion Response to Teaching: Verbalize Understanding, Reinforcement Needed OT Longterm Goals Longterm Goals Eating (QC): 6 Oral Hygiene (QC): 6 Toileting Hygiene (QC): 6 Shower/Bathe Self (QC): 4 Upper Body Dressing (QC): 6 Lower Body Dressing (QC): 6 On/Off Footwear (QC): 6 1=Demonstrate adherence to instructed precautions during ADL tasks. 2=Patient will verbalize/demonstrate understanding of assistive devices/modifications for ADL. 3=Patient will improve strength/tolerance for activity to enable patient to perform ADL's. OT Education/Plan Problem List/Assessment Assessment: Decreased Activ Tolerance, Decreased UE Strength, Impaired Bed Mobility, Impaired Funct Balance, Impaired Self-Care Skills Discharge Recommendations Plan/Recommendations: Continue POC Treatment Plan/Plan of Care Treatment,Training & Education: Yes Patient would benefit from OT for education, treatment and training to promote independence in ADL's, mobility, safety and/or upper extremity function for ADL's. Plan of Care: ADL Retraining, Caregiver Training, Concurrent Therapy, Func tional Mobility, Group Exercise/Act as Ind, UE Funct Exercise/Act Treatment Duration: Apr 20, 2023 Frequency: 3 times per week (3-5 times per week) Estimated Hrs Per Day: .25 hour per day Rehab Potential: Good Time Start Time: 14:00 Stop Time: 14:16 DATE: Apr 15, 2023 Total Time Billed (hr/min): 16 Billed Treatment Time EVM 16 min KAITY PARMAR OT Apr 15, 2023 14:13
[2023-04-16 03:17] VITALS: BP 124/55
[2023-04-16 05:55] LABS: POTASSIUM 4.2 MMOL/L (3.6-5.0)
[2023-04-16 05:56] LABS: CALCIUM 8.7 MG/DL (8.5-10.1)
[2023-04-16 06:01] LABS: CREATININE SERUM 1.34 MG/DL (0.60-1.30)
[2023-04-16] MEDS: POTASSIUM CL 10MEQ/50ML IVPB 50 ML IV SCH (06:02)
[2023-04-16] MEDS: POTASSIUM CHLORIDE 20 MEQ TABLET PO SCH (06:03)
[2023-04-16] MEDS: POTASSIUM BICARB 20 MEQ effervescent TABLET PO SCH (06:03)
[2023-04-16] MEDS: MAGNESIUM 1 GM/100 ML IVPB 100 ML IV SCH (06:04)
[2023-04-16] MEDS: inSUlin ASPART 1 UNIT/0.01 ML (PER UNIT) SC SCH ×2 (06:15→12:05)
[2023-04-16] MEDS: LEVOTHYROXINE 75 MCG TABLET PO SCH (06:15)
[2023-04-16 08:00] VITALS: BP 133/65
--- NOTE | 2023-04-16 08:42 | Progress Note - Cardiology ---
Cardiology SOAP Progress Note Subjective: Lying in bed Feels her breathing is back to her usual baseline No c/o CP or palpitations Objective: I&O/Vital Signs 04/15/23 04/16/23 04/16/23 04/16/23 23:32 01:00 03:17 07:10 Temp 36.2 36.1 Pulse 74 67 69 69 Resp 11 17 B/P (MAP) 120/50 (73) 124/55 (78) Pulse Ox 99 99 O2 Delivery Nasal Cannula Nasal Cannula O2 Flow Rate 2.00 2.00 04/16/23 04/16/23 07:48 08:00 Temp 36.5 Pulse 76 Resp 23 B/P (MAP) 133/65 (87) Pulse Ox 98 95 O2 Delivery Nasal Cannula Nasal Cannula O2 Flow Rate 2.00 2.00 04/16/23 00:00 Intake Total 1150 ml Output Total 1200 ml Balance -50 ml Weight (Pounds): 213 Weight (Ounces): 0.0 Weight (Calculated Kilograms): 96.790880 Constitutional: AAO x 3, well-developed, well-nourished Respiratory: No accessory muscle use, No respiratory distress; chest expansion is symmetric, other (good air entry) Cardiovascular: regular rate-rhythm Gastrointestional: No tender; soft, round; No guarding; audible bowel sounds Extremities: other (mild LE swelling) Neurologic/Psychiatric: other (moves all extremities) Skin: other (petechial rash to legs bilat) Results/Procedures: Labs Laboratory Tests 04/15/23 10:37: Glucometer 193H 04/15/23 15:34: Glucometer 189H 04/15/23 20:00: Glucometer 169H 04/16/23 05:30: Sodium Level 135, Potassium Level 4.2, Chloride Level 100, Carbon Dioxide Level 28, Anion Gap 7, Blood Urea Nitrogen 27H, Creatinine 1.34H, Estimat Glomerular Filtration Rate 40, BUN/Creatinine Ratio 20, Glucose Level 221H, Calcium Level 8.7, Magnesium Level 2.0 Microbiology 04/13/23 Blood Culture - Preliminary, Resulted No growth Laboratory Tests 04/15/23 05:45 04/16/23 05:30 A/P: Assessment: Sepsis - resolved Respiratory distress - probably related to ac diastolic CHF, improved with IV diuretics - Echo on 04/13/23: Mild conc LVH. LVEF 50-55%. Moderately dilated LA. Mild MAC. Trivial AI. PASP 40-45 mmHg H/O GIB with anemia, multiple blood transfusions - management is by Andrei (pt denies any recent bleeding) - Surgical service (Dr Forbes) had advised holding off on aspirin CAD, inoperable - Cardiac cath of 12-02-22: Left main coronary artery: Ok; Left anterior descending coronary artery: Long, up to 90% in ostial and prox LAD; Left circumflex coronary artery: Long, up to 80 in prox portion of a large OM, and 80% distal left circumflex; Right coronary artery: Dominant with up to 80 distal (but prox to PDA and PL). LVEDP 20 mmHg. LVEF 60% - referred to [facility] for eval for CABG - CV Surg felt coronaries to be too small for bypass, referred for high-risk intervention (Dr Rodriguez) who has advised medical therap y - Evaluated by Dr. Rodriguez at [facility], per his note of 02-26-23, she is not suitable candidate for high risk percutaneous intervention - he advises continued medical tx PAF - first dx on 02-12-[address] Rodriguez - Cardioverted by Dr. 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 Torres Plan: Very complex management due to multiple comorbidities that include advanced but inoperable CAD Management of sepsis is per medical services Continue current cardiac regimen Monitor lab closely Continue PT ERIKA MEDINA Apr 16, 2023 08:42
[2023-04-16] MEDS ORDERED: FUROSEMIDE 40 MG TABLET PO SCH (09:00)
[2023-04-16] MEDS: PANTOPRAZOLE 20 MG TABLET PO SCH (09:29)
[2023-04-16] MEDS: OXYBUTYNIN 5 MG TABLET PO SCH (09:29)
[2023-04-16] MEDS: LORATADINE 10 MG TABLET PO SCH (09:29)
[2023-04-16] MEDS: carvediloL 12.5 MG TABLET PO SCH (09:29)
[2023-04-16] MEDS: ISOSORBIDE MONONITRATE 30 MG TABLET PO SCH (09:30)
[2023-04-16] MEDS: AMIODARONE 200 MG TABLET PO SCH (09:30)
[2023-04-16] MEDS: SPIRONOLACTONE 25 MG (ALDACTONE) TAB PO SCH (09:30)
[2023-04-16] MEDS: ASPIRIN 81 MG CHEWABLE TABLET PO SCH (09:30)
[2023-04-16] MEDS: LOSARTAN 25 MG TABLET PO SCH (09:30)
[2023-04-16] MEDS: inSUlin DETERMIR 1 UNIT/0.01 ML (CHARGE PER UNIT) SQ SCH (09:31)
[2023-04-16] MEDS: DOCUSATE SODIUM 100 MG CAPSULE PO SCH (09:35)
[2023-04-16] MEDS: SENNOSIDES 8.6 MG TABLET PO SCH (09:35)
--- NOTE | 2023-04-16 09:40 | Physical Therapy Daily Note ---
PT Daily Note-Current Subjective Patient reports she is going to rehab. Agrees to therapy. OT currently in room working with patient. Pain Section J - Health Conditions 1. Rarely or not at all 2. Occasionally 3. Frequently 4. Almost constantly 8. Unable to answer Pain Effect on Sleep: 2 Pain Interference with Therapy: 2 Pain Interference w/Day-to-Day: 2 Mental Status Attachments: Oxygen Transfers SCALE: Activities may be completed with or without assistive devices. 1-Tkpvcrsort-qaynsac completes the activity by him/herself with no assistance from a helper. 5-Set-up or Clean-up Assistance-helper sets up or cleans up; patient completes activity. [place] assists only prior to or following the activity. 4-Supervision or Touching Assistance-helper provides verbal cues and/or touching/steadying and/or contact guard assistance as patient completes activity. Assistance may be provided throughout the activity or intermittently. 3-Partial/Moderate Assistance-helper does LESS THAN HALF the effort. [place] lifts, holds or supports trunk or limbs, but provides less than half the effort. 2-Substantial/Maximal Assistance-helper does MORE THAN HALF the effort. [place] lifts or holds trunk or limbs and provides more than half the effort. 6-Ounidkxfy-bykxzs does ALL the effort. Patient does none of the effort to complete the activity. Or, the assistance of 2 or more helpers is required for the patient to complete the activity. If activity was not attempted, code reason: 7-Patient Refused. 9-Not Applicable-not attempted and the patient did not perform the activity before the current illness, exacerbation or injury. 10-Not Attempted due to Environmental Limitations-(lack of equipment, weather restraints, etc.). 88-Not Attempted due to Medical Conditions or Safety Concerns. Lying to Sitting/Side of Bed(Q: 4 Sit to Stand (QC): 4 Chair/Bgh-uv-Wfrvq Xfer(QC): 4 CGA for safety with upright mobility Weight Bearing Right Lower Extremity: Right Full Weight Bearing Left Lower Extremity: Left Full Weight Bearing Gait Training Distance: 5 steps Gait Assistive Device: FWW no foot clearance Exercises Supine Ex: Ankle pumps, Heel Slides Supine Reps: 8 Seated Therapy Exercises: Ankle pumps, Long arc quads Seated Reps: 8 Assessment Patient incontinent BM requiring dependent assist to cleanse and change. Patient is aware of her incontinence. Patient is SBA to CGA on this date. Declined to attempt ambulation. Per physician, patient will dismiss to ARU on this date. PT Short Term Goals Short Term Goals Time Frame: Apr 17, 2023 Roll Left & Right: 4 Sit to lyin Lying to sitting on side of be: 4 Sit to stand: 4 Chair/tpi-vy-ocwfw transfer: 4 Walk 150 feet: 4 PT Nursing Aide Goals Nursing Aide Goals PT Nursing Aide Goals Time Frame: Apr 22, 2023 Roll Left & Right (QC): 6 Sit to Lying (QC): 6 Lying-Sitting on Side/Bed(QC): 6 Sit to Stand (QC): 6 Chair/Agu-je-Tzsym Xfer(QC): 6 Toilet Transfer (QC): 6 Walk 150 ft (QC): 6 4 Steps (QC): 4 PT Plan Treatment/Plan Treatment Plan: Continue Plan of Care Treatment Plan: Bed Mobility, Education, Functional Activity Timothy, Functional Strength, Gait, Therapeutic Exercise Treatment Duration: Apr 22, 2023 Frequency: 6 times per week Estimated Hrs Per Day: .25 hour per day Patient and/or Family Agrees t: Yes Time Time In: 911 Time Out: 934 DATE: Apr 16, 2023 Total Billed Treatment Time: 23 Total Billed Treatment 1 visit FA x 2 23 min SAURAV BROWER PT Apr 16, 2023 09:40
--- NOTE | 2023-04-16 09:40 | Occupational Ther Daily Note ---
OT Current Status-Daily Note Subjective Patient resting in bed, reports several BM through night and not sleeping well, Son and Daughter in Law have remained constant w/ patient since admission. Daughter in law has concerns w/ patient standing w/ BERNARDO CHAUHAN, OT educated family. OT requested 3 times for son to choose an alternate seat as patient will be transferring to recliner. Pain Comment: c/o pain thorughout body however does not rate pain. Mental Status/Objective Patient Orientation: Person, Place, Time, Situation Attachments: Oxygen, Other-See Comments (BERNARDO CHAUHAN, to be removed prior to ARU) ADL-Treatment BM incont in bed and unaware of episode, CGA for transfer out of bed, multiple VCs and time allotment for bed mobility Therapy Code Descriptions/Definitions Functional [place] Measure: 0=Not Assessed/NA 4=Minimal Assistance 1=Total Assistance 5=Supervision or Setup 2=Maximal Assistance 6=Modified [place] 3=Moderate Assistance 7=Complete IndependenceSCALE: Activities may be completed with or without assistive devices. 7-Udoektvpuu-pnbjzsg completes the activity by him/herself with no assistance from a helper. 5-Set-up or Clean-up Assistance-helper sets up or cleans up; patient completes activity. Decker assists only prior to or following the activity. 4-Supervision or Touching Assistance-helper provides verbal cues and/or touching/steadying and/or contact guard assistance as patient completes activity. Assistance may be provided throughout the activity or intermittently. 3-Partial/Moderate Assistance-helper does LESS THAN HALF the effort. Decker lifts, holds or supports trunk or limbs, but provides less than half the effort. 2-Substantial/Maximal Assistance-helper does MORE THAN HALF the effort. Decker lifts or holds trunk or limbs and provides more than half the effort. 2-Cqhhibttq-wpakiv does ALL the effort. Patient does none of the effort to complete the activity. Or, the assistance of 2 or more helpers is required for the patient to complete the activity. If activity was not attempted, code reason: 7-Patient Refused. 9-Not Applicable-not attempted and the patient did not perform the activity before the current illness, exacerbation or injury. 10-Not Attempted due to Environmental Limitations-(lack of equipment, weather restraints, etc.). 88-Not Attempted due to Medical Conditions or Safety Concerns. Eating (QC): 6 Oral Hygiene (QC): 5 Shower/Bathe Self (QC): 7 Upper Body Dressing (QC): 4 Lower Body Dressing (QC): 2 On/Off Footwear: 1 Toileting Hygiene (QC): 1 Toilet Transfer (QC): 4 (urine incont when standing) Floor, FWW and front of recliner sanitized. Patient feet cleansed w/ bath wipes prior to reapplying sock. Education OT Patient Education: Correct positioning, Exercise program, Modified ADL techniques, Progress toward Goal/Update tx plan, Purpose of tx/functional act ivities, Reviewed precautions, Rehab process, Safety issues, Transfer techniques, Use of adapted equipment Teaching Recipient: Patient, Family Teaching Methods: Demonstration, Discussion Response to Teaching: Verbalize Understanding OT Skein Drier Goals Correction Goals Eating (QC): 6 Oral Hygiene (QC): 6 Toileting Hygiene (QC): 6 Shower/Bathe Self (QC): 4 Upper Body Dressing (QC): 6 Lower Body Dressing (QC): 6 On/Off Footwear (QC): 6 1=Demonstrate adherence to instructed precautions during ADL tasks. 2=Patient will verbalize/demonstrate understanding of assistive devices/modifications for ADL. 3=Patient will improve strength/tolerance for activity to enable patient to perform ADL's. OT Education/Plan Problem List/Assessment Assessment: Decreased Activ Tolerance, Decreased UE Strength, Impaired Bed Mobility, Impaired Coordination, Impaired Funct Balance, Impaired Self-Care Skills Discharge Recommendations Plan/Recommendations: Continue POC Therapy Discharge Recommendati: Post Acute OT Treatment Plan/Plan of Care Treatment,Training & Education: Yes Patient would benefit from OT for education, treatment and training to promote independence in ADL's, mobility, safety and/or upper extremity function for ADL's. Plan of Care: ADL Retraining, Caregiver Training, Concurrent Therapy, Functional Mobility, Group Exercise/Act as Ind, UE Funct Exercise/Act Treatment Duration: Apr 20, 2023 Frequency: 3 times per week (3-5 times per week) Estimated Hrs Per Day: .25 hour per day Rehab Potential: Good Patient resting in recliner w/ family in additional recliners in room, Aiden Brothers in room and RN in room, all needs met Time Start Time: 09:00 Stop Time: :31 DATE: Apr 16, 2023 Total Time Billed (hr/min): 31 Billed Treatment Time ADL 31 min KAITY PARMAR OT Apr 16, 2023 09:40
[2023-04-16 11:49] VITALS: BP 102/80
--- NOTE | 2023-04-16 12:12 | Progress Note - Cardiology ---
Cardiology SOAP Progress Note Subjective: Gen weakness present No focal weakness Breathing has improved No cp or palp or syncope No n/v/d Swelling of the legs has improved Objective: I&O/Vital Signs 04/16/23 04/16/23 04/16/23 04/16/23 01:00 03:17 07:10 07:48 Temp 36.1 Pulse 67 69 69 Resp 17 B/P (MAP) 124/55 (78) Pulse Ox 99 98 O2 Delivery Nasal Cannula Nasal Cannula O2 Flow Rate 2.00 2.00 04/16/23 04/16/23 04/16/23 08:00 08:00 11:49 Temp 36.5 36.2 Pulse 76 59 Resp 23 22 B/P (MAP) 133/65 (87) 102/80 (87) Pulse Ox 94 95 97 O2 Delivery Nasal Cannula Nasal Cannula Nasal Cannula O2 Flow Rate 2.00 2.00 2.00 04/16/23 00:00 Intake Total 1150 ml Output Total 1200 ml Balance -50 ml Weight (Pounds): 213 Weight (Ounces): 0.0 Weight (Calculated Kilograms): 96.722571 Constitutional: AAO x 3, well-developed, well-nourished Respiratory: No accessory muscle use, No respiratory distress; chest expansion is symmetric, other (good air entry) Cardiovascular: regular rate-rhythm Gastrointestional: No tender; soft, round; No guarding; audible bowel sounds Extremities: other (mild LE swelling) Neurologic/Psychiatric: other (moves all extremities) Skin: other (petechial rash to legs bilat) Results/Procedures: Labs Laboratory Tests 04/15/23 15:34: Glucometer 189H 04/15/23 20:00: Glucometer 169H 04/16/23 05:30: Sodium Level 135, Potassium Level 4.2, Chloride Level 100, Carbon Dioxide Level 28, Anion Gap 7, Blood Urea Nitrogen 27H, Creatinine 1.34H, Estimat Glomerular Filtration Rate 40, BUN/Creatinine Ratio 20, Glucose Level 221H, Calcium Level 8.7, Magnesium Level 2.0 04/16/23 10:53: Glucometer 248H Microbiology 04/13/23 Blood Culture - Preliminary, Resulted No growth Laboratory Tests 04/15/23 05:45 04/16/23 05:30 A/P: Assessment: Sepsis - resolved Respiratory distress - probably related to ac diastolic CHF, improved with IV diuretics - Echo on 04/13/23: Mild conc LVH. LVEF 50-55%. Moderately dilated LA. Mild MAC. Trivial AI. PASP 40-45 mmHg H/O GIB with anemia, multiple blood transfusions - management is by Andrei (pt denies any recent bleeding) - Surgical service (Dr Forbes) had advised holding off on aspirin CAD, inoperable - Cardiac cath of 12-02-22: Left main coronary artery: Ok; Left anterior descending coronary artery: Long, up to 90% in ostial and prox LAD; Left ci rcumflex coronary artery: Long, up to 80 in prox portion of a large OM, and 80% distal left circumflex; Right coronary artery: Dominant with up to 80 distal (but prox to PDA and PL). LVEDP 20 mmHg. LVEF 60% - referred to [facility] for eval for CABG - CV Surg felt coronaries to be too small for bypass, referred for high-risk intervention (Dr Rodriguez) who has advised medical therapy - Evaluated by Dr. Rodriguez at [facility], per his note of 02-26-23, she is not suitable candidate for high risk percutaneous intervention - he advises continued medical tx PAF - first dx on 02-12-[address] Rodriguez - Cardioverted by Dr. 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 Torres Plan: Very complex management due to multiple comorbidities that include advanced but inoperable CAD Management of sepsis is per medical services Continue current cardiac regimen Monitor lab closely Continue PT Med[facility] sv[facility] planning on transfer to inpatient rehab MAXIM WRIGHT MD FACP FAC CCDS Apr 16, 2023 12:12
--- NOTE | 2023-04-16 15:51 | Discharge Summary ---
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 (5) Obesity Status: Chronic Hospital Course Date of Admission: Apr 13, 2023 at 09:06 Admission Diagnosis : Acute respiratory failure with hypoxia due to acute pulmonary edema Family Physician/Provider: Daphne Torres MD Date of Discharge: 04/16/23 Discharge Diagnosis: Acute respiratory failure with hypoxia due to acute pulmon yu edema Hospital Course: Leonora Leger is an 83 year old female with PMH HTN, T2DM, HLD, CAD, CHF, AFib not on anticoagulation due to recurrent GI bleeding, hypothyroidism, non-Hodgkin lymphoma, who presented with shortness of breath and was admitted with pulmonary edema. She was requiring supplemental oxygen. She had an echo which showed n ormal EF with concentric hypertrophy and pulmonary hypertension. Cardiology was consulted and assisted with her care. She was diuresed and her dyspnea resolved. She remained debilitated. She worked with PT/OT but remained unsafe to go directly home. She was transferred to inpatient rehab for ongoing therapy and medical management. Labs and Pending Lab Test: Laboratory Tests 04/15/23 15:34: Glucometer 189H 04/15/23 20:00: Glucometer 169H 04/16/23 05:30: Sodium Level 135, Potassium Level 4.2, Chloride Level 100, Carbon Dioxide Level 28, Anion Gap 7, Blood Urea Nitrogen 27H, Creatinine 1.34H, Estimat Glomerular Filtration Rate 40, BUN/Creatinine Ratio 20, Glucose Level 221H, Calcium Level 8.7, Magnesium Level 2.0 04/16/23 10:53: Glucometer 248H Microbiology 04/13/23 Blood Culture - Preliminary, Resulted No growth Home Meds Active Reported Lidocaine 4 % Cream..g. 1 Applic TP Q12H PRN Aspirin EC (Aspirin) 81 Mg Tablet.dr 81 Mg PO DAILY Carvedilol 25 Mg Tablet 12.5 Mg PO BID TAKES OF A 25MG TAB Furosemide 40 Mg Tablet 40 Mg PO DAILY Omeprazole 20 Mg Tablet.dr 20 Mg PO DAILY Amiodarone HCl 200 Mg Tablet 200 Mg PO DAILY Losartan Potassium 50 Mg Tablet 50 Mg PO DAILY Isosorbide Mononitrate ER (Isosorbide Mononitrate) 30 Mg Tab.er.24h 30 Mg PO DAILY Amlodipine Besylate 5 Mg Tablet 5 Mg PO DAILY Potassium Chloride 20 Meq Tablet.er 10 Meq PO DAILY TAKES OF A 20MEQ Vitamin D3 (Cholecalciferol (Vitamin D3)) 50 Mcg (2000 Unit) Capsule 50 Mcg PO DAILY Diclofenac Sodium 1 % Gel..gram. 1 Applic TOP QID PRN Tylenol Extra Strength (Acetaminophen) 500 Mg Tablet 1,000 Mg PO Q6H PRN TAKES 2 (500MG) TABS Semglee (Yfgn) Pen (Insulin Glargine-Yfgn) 100 Unit/Ml (3 Ml) Insuln.pen 34 Unit SQ BID Praluent Pen (Alirocumab) 75 Mg/Ml Pen.injctr 75 Mg SQ [id number] ON SATURDAYS Loratadine 10 Mg Tablet 10 Mg PO DAILY Levothyroxine Sodium 75 Mcg Tablet 75 Mcg PO DAILY Oxybutynin Chloride ER (Oxybutynin Chloride) 10 Mg Tab.er.24 10 Mg PO DAILY Preservision Areds 2 Softgel (Vit C/E/Zn/Coppr/Lutein/Zeaxan) 250MG-90MG Capsule 1 Each PO BID Assessment/Pt Instructions See instructions Discharge Planning: >30 minutes discharge planning Discharge Instructions Discharge Diet: Low Sodium Diet Activity as Tolerated: Yes Consultations Cardiology Discharge Physical Examination Vital Signs Vital Signs Date Time Temp Pulse Resp B/P (MAP) Pulse Ox O2 Delivery O2 Flow Rate FiO2 04/16/23 13:55 04/16/23 12:25 58 04/16/23 11:49 36.2 22 97 Nasal Cannula 2.00 04/13/23 19:26 36 General Appearance: No Apparent Distress, Obese Respiratory: Lungs Clear, No Respiratory Distress Cardiovascular: Regular Rate, Rhythm, No Murmur Gastrointestinal: Normal Bowel Sounds, Soft Extremity: Non Tender, Pedal Edema Skin: Normal Color, Warm/Dry Neurologic/Psychiatric: Alert, Normal Mood/Affect Allergies: Coded Allergies: [id number] Reductase Inhibitor (Unverified Allergy, Mild, MUSCLE PAIN, 03/09/18) adhesive (Unverified Allergy, Unknown, 03/09/18) lisinopril (Unverified Adverse Reaction, Mild, COUGH, 03/09/18) Discharge Summary Date of Admission Apr 13, 2023 at 09:06 Date of Discharge Apr 16, 2023 at 13:50 Discharge Date: Apr 16, 2023 Discharge Time: 13:50 Admission Diagnosis Acute respiratory failure with hypoxia Consults/Procedures Consulations Cardiology Discharge Diagnosis Acute respiratory failure with hypoxia Acute pulmonary edema Acute HFpEF Debility HTN T2DM HLD Hypothyroidism NHL AFib CAD (1) Respiratory failure Status: Acute Qualifiers: Qualified Codes: J96.01 - Acute respiratory failure with hypoxia (2) Pulmonary edema Status: Acute Qualifiers: Qualified Codes: J81.0 - Acute pulmonary edema (3) HTN (hypertension) Status: Acute (4) T2DM (type 2 diabetes mellitus) Status: Acute Qualifiers: Qualified Codes: E11.65 - Type 2 diabetes mellitus with hyperglycemia; Z79.4 - snf (current) use of insulin (5) Obesity Status: Chronic JACQUES GRIGSBY MD Apr 16, 2023 15:45
--- NOTE | 2023-04-17 13:20 | Physician Query Clarification ---
PQ-Uncertain Diagnosis Admission/Discharge Admission Date: Apr 13, 2023 at 09:06 Discharge Date: Apr 16, 2023 at 13:50 Dr. Grigsby, The medical record reflects the following clinical scenario: History/Risk Factors: HTN w/acute diastolic heart failure, acute hypoxic respiratory failure Clinical Findings: Lactic acid 2.01, WBC 4.2, T 35.9, P 91, R 27 Treatment: IV Cefepime Question: Is sepsis w/pneumonia a clinically valid diagnosis? Sepsis w/pneumonia was documented in the Phone Technician with no further documentat ion in the medical record. Please document a response in Progress Note or Discharge Summary. 1. Yes, clinically valid, condition resolved. 2. No, condition ruled out. 3. Other, with explanation of clinical findings. 4. Undetermined, no explanation for clinical findings. PHYSICIAN RESPONSE Diagnosis clinically valid: No, conditon ruled out In responding to this query, please exercise your independent professional judgment. The purpose of this communication is to more accurately reflect the complexity of your patients condition. The fact that a question is asked does not imply that any particular answer is desired or expected. Thank you for your timely response to this clarification. Requestors name: Isaiah THIS PHYSICIAN QUERY FORM IS A PERMANENT PART OF THE MEDICAL RECORD ISAIAH JOHNSON Apr 17, 2023 13:20 JACQUES GRIGSBY MD Apr 29, 2023 16:41
== END 2023-04-16 13:50 | DRG 291 ==
LOC: EDUNIT# 07:39 → ER 07:41 → CSD 09:06
PROVIDERS: ADMIT Internal Medicine; ATTEND Internal Medicine
DX: I11.0 Hypertensive heart disease with heart failure (principal); I50.33 Acute on chronic diastolic (congestive) heart failure; J96.01 Acute respiratory failure with hypoxia; C85.90 Non-Hodgkin lymphoma, unspecified, unspecified site; E66.2 Morbid (severe) obesity with alveolar hypoventilation; Z68.41 Body mass index [BMI] 40.0-44.9, adult; I48.0 Paroxysmal atrial fibrillation; Z20.822 Contact with and (suspected) exposure to COVID-19; I25.10 Atherosclerotic heart disease of native coronary artery without angina pectoris; I27.20 Pulmonary hypertension, unspecified; E78.00 Pure hypercholesterolemia, unspecified; E11.9 Type 2 diabetes mellitus without complications; E03.9 Hypothyroidism, unspecified; M19.90 Unspecified osteoarthritis, unspecified site; Z86.73 Personal history of transient ischemic attack (TIA), and cerebral infarction without residual deficits; Z87.891 Personal history of nicotine dependence; Z85.828 Personal history of other malignant neoplasm of skin; Z79.899 Other long term (current) drug therapy; Z79.4 Long term (current) use of insulin; Z91.09 Other allergy status, other than to drugs and biological substances
CPT/HCPCS: 36415; 71045; 80048; 80053; 82947; 83605; 83735; 83880; 84484; 85025; 85610; 85730; 87040; 87636; 93005; 93041; 93306; 94640; 94760; 94761; 96365; 96375

== ENCOUNTER 2023-04-16 12:47 | Inpatient (IN) | payer MEDICARE, OTHER ==
[~2023-04-16] VITALS: Ht 172 cm; Wt 119.3 kg
[~2023-04-16 12:47] MED LIST changes: +AMIO200T65 PO; +AMLO-250 PO; +CARV25TA PO; +CHOL200074 PO; +FURO40TA4 PO; +ISOS30TA82 PO; +LIDO5CRE24 TP; +LOSA50TA63 PO; +POTA-330 PO
[2023-04-16 13:50] VITALS: BP 107/61
--- NOTE | 2023-04-16 14:07 | PM&R Post Admission Assessment ---
PM&R HP Date of Visit: Apr 16, 2023 Time of Visit: 15:00 History of Present Illness CC: Respiratory failure/Critical illness myopathy HPI: This is an 83yoWF clinic patient of [facility] in [place] known to me from prior admit 11/2022 for rectal bleeding with h/o CAD and DM who presents to ARU following a respiratory failure episode that has left her significantly weak and compromised and in need of aggressive rehab in order to regain function and strength to go home. She does not use O2 at home and feels like her legs will not support her. CC: myopathy and lower limb weakness HPI: 83 y/o female presented to the ED with SOB after waking up Thursday morning gasping for air. Patient said she suddenly woke up and could not breath but had no associated chest pain or weakness. She said she did not lose consciousness. She arrived with her family to the ER and had a chest X- ray which showed b/l pulmonary edema and she was put on oxygen and given IV Lasix. Her family stated she also had pulmonary edema and a similar gasping incidence this November when she was in the hospital for diverticulitis w/ rectal bleeding. After admission there was noted b/l edema in her legs which improved but she felt very weak. She has not been able to ambulate since her arrival which she was able to do just fine before. She does note that she has had shingles since May and the rash and keeps reappearing on her head. Her family states she had not ambulated much since her infection. PMH: Afib, HTN, T2DM, Hyperlipidemia, CAD ( inoperable- blockage in left main coronary artery, Left circumflex coronary artery, LAD, RCA, managed with meds) hypothyroidism, non-Hodgkin lymphoma, diverticulitis ( November 2022), basal cell carcinoma, dry macular degeneration PSH: Hysterectomy, oophortectomy, tonsillectomy, cataracts Meds: Acetaminophen (Tylenol Extra Strength) 500 Mg Tablet, 1,000 MG PO Q8H PRN for PAIN-MILD (1-4), Alirocumab (Praluent Pen) 75 Mg/Ml Pen.injctr, 75 MG SQ [id number] Carboxymethylcellulos/Glycerin (Refresh Relieva 0.5-0.9% Drop) 0.5 %-0.9 % Drops, 1 DROP OS QID PRN for DRY EYES, Carboxymethylcellulose Sodium (Refresh Tears) 0.5 % Drops, 1 DROP OD QID PRN for DRY EYES Carvedilol (Carvedilol) 12.5 Mg Tablet, 12.5 MG PO BID, Cholecalciferol (Vitamin D3) (Vitamin D3) 25 Mcg (1000 Unit) Tablet, 50 MCG PO BID, Clobetasol Propionate (Clobetasol Propionate) 0.05 % Cream..g., 1 APPLIC TP BID Dextrose (Glucose) 4 Gram Tab.chew, 4 GM PO UD PRN for HYPOGLYCEMIA, Diclofenac Sodium (Diclofenac Sodium) 1 % Gel..gram., 1 APPLIC TOP QID PRN for PAIN-BREAKTHROUGH Furosemide (Furosemide) 20 Mg Tablet, 20 MG PO DAILY, Insulin Glargine-Yfgn (Semglee (Yfgn) Pen) 100 Unit/Ml (3 Ml) Insuln.pen, 28 UNIT SQ BID, Levothyroxine Sodium (Levothyroxine Sodium) 75 Mcg Tablet, 75 MCG PO DAILY, Loratadine (Loratadine) 10 Mg Tablet, 10 MG PO DAILY, Nitroglycerin (Nitroglycerin) 0.4 Mg Tab.subl, 0.4 MG SL UD PRN for CHEST PAIN, Oxybutynin Chloride (Oxybutynin Chloride ER) 10 Mg Tab.er.24, 10 MG PO DAILY, Pantoprazole Sodium (Pantoprazole Sodium) 40 Mg Tablet.dr, 40 MG PO DAILY Pioglitazone HCl (Pioglitazone HCl) 45 Mg Tablet, 45 MG PO DAILY, Polyethylene Glycol 3350 (Miralax) 17 Gram Powd.pack, 17 GM PO DAILY Potassium Chloride (Potassium Chloride) 10 Meq Capsule.er, 10 MEQ PO DAILY Urea (Urea) 20 % Cream..g., 1 APPLIC TOP UD PRN for ITCHING, Vit C/E/Zn/Coppr/Lutein/Zeaxan (Preservision Areds 2 Softgel) 250MG-90MG Capsule, 1 EACH PO BID All: Cozaar- cough Statins- muscle aches Latex lisinopril- cough seasonal SH: Smoking history, no other recreational drug use, ocassional alcohol 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 sensation intact b/l Assessment: acute pulmonary edema Acute respiratory failure- hypoxia HTN T2DM Hyperlipidemia Hypothyroidism Afib CAD Plan: conintue to monitor labs and vitals continue Lasix PT and OT- LE weakness ambulate Follow up- chest x-ray Past Ezsuzqi-Ebiedp-Mlaxtx Hx Past Med/Social Hx: Reviewed Nursing Past Med/Soc Hx, Reviewed and Corrections made Patient Social History Marrital Status: Employed/Student: retired Alcohol Use: Denies Use Smoking Status: Never a Smoker Former Smoker, Quit: Aug 31, 1967 Recent Hopitalizations: No Immunizations Up To Date Tetanus Booster (TDap): Unknown Date of Pneumonia Vaccine: Jun 09, 2016 Date of Influenza Vaccine: Jun 09, 2016 Seasonal Allergies Seasonal Allergies: Yes (MILD) Past Medical History Surgeries: Abdominal, Adenoidectomy, Bladder Surgery, Cardiac, Hysterectomy, Oophorectomy, Tonsillectomy Cardiac: Chronic Edema/Swelling, Coronary Artery Disease, High Cholesterol, Hypertension Neurological: Stroke Reproductive: No Sexually Transmitted Disease: No HIV/AIDS: No Hysterectomy Gastrointestinal: Diverticulosis Musculoskeletal: Arthritis Endocrine: Diabetes, Insulin dep, Hypothyroidsim Loss of Vision: Bilateral Hearing Impairment: Denies Cancer: Skin Did You Recieve Any Treatments: Yes What Type of Treatment Did You: Surgical Intervention Adverse Reaction to Blood Mcfadden: No (N/A) Family History Cancer 09 SISTER Family history: Diabetes mellitus 03 MOTHER Stroke 03 MOTHER No Pertinent Family Hx PM&R Allergy/Meds/Data Review Allergies Coded Allergies: Viefnmo-JPF-ZbP Reductase Inhibitor (Unverified Allergy, Mild, MUSCLE PAIN, 03/09/18) adhesive (Unverified Allergy, Unknown, 03/09/18) lisinopril (Unverified Adverse Reaction, Mild, COUGH, 03/09/18) Home Medications Scheduled Alirocumab (Praluent Pen), 75 MG SQ [id number], (Reported) Amiodarone HCl (Amiodarone HCl), 200 MG PO DAILY, (Reported) Amlodipine Besylate (Amlodipine Besylate), 5 MG PO DAILY, (Reported) Aspirin (Aspirin EC), 81 MG PO DAILY, (Reported) Carvedilol (Carvedilol), 12.5 MG PO BID, (Reported) Cholecalciferol (Vitamin D3) (Vitamin D3), 50 MCG PO DAILY, (Reported) Furosemide (Furosemide), 40 MG PO DAILY, (Reported) Insulin Glargine-Yfgn (Semglee (Yfgn) Pen), 34 UNIT SQ BID, (Reported) Isosorbide Mononitrate (Isosorbide Mononitrate ER), 30 MG PO DAILY, (Reported) Levothyroxine Sodium (Levothyroxine Sodium), 75 MCG PO DAILY, (Reported) Loratadine (Loratadine), 10 MG PO DAILY, (Reported) Losartan Potassium (Losartan Potassium), 50 MG PO DAILY, (Reported) Omeprazole (Omeprazole), 20 MG PO DAILY, (Reported) Oxybutynin Chloride (Oxybutynin Chloride ER), 10 MG PO DAILY, (Reported) Potassium Chloride (Potassium Chloride), 10 MEQ PO DAILY, (Reported) Vit C/E/Zn/Coppr/Lutein/Zeaxan (Preservision Areds 2 Softgel), 1 EACH PO BID, (Reported) Scheduled PRN Acetaminophen (Tylenol Extra Strength), 1,000 MG PO Q6H PRN for PAIN-MILD (1-4), (Reported) Diclofenac Sodium (Diclofenac Sodium), 1 APPLIC TOP QID PRN for PAIN-BREAKTHR OUGH, (Reported) Lidocaine (Lidocaine), 1 APPLIC TP Q12H PRN for SHINGLES PAIN, (Reported) Discontinued Medications Carboxymethylcellulos/Glycerin (Refresh Relieva 0.5-0.9% Drop), 1 DROP OS QID PRN for DRY EYES, (Reported) Discontinued Reason: No Longer Taking Carboxymethylcellulose Sodium (Refresh Tears), 1 DROP OD QID PRN for DRY EYES, (Reported) Discontinued Reason: No Longer Taking Cholecalciferol (Vitamin D3) (Vitamin D3), 50 MCG PO BID, (Reported) Discontinued Reason: Prescription changed Clobetasol Propionate (Clobetasol Propionate), 1 APPLIC TP BID, (Reported) Discontinued Reason: No Longer Taking Dextrose (Glucose), 4 GM PO UD PRN for HYPOGLYCEMIA, (Reported) Discontinued Reason: No Longer Taking Furosemide (Furosemide), 20 MG PO DAILY, (Reported) Discontinued Reason: No Longer Taking Nitroglycerin (Nitroglycerin), 0.4 MG SL UD PRN for CHEST PAIN, (Reported) Discontinued Reason: No Longer Taking Pantoprazole Sodium (Pantoprazole Sodium), 40 MG PO DAILY Discontinued Reason: No Longer Taking Pioglitazone HCl (Pioglitazone HCl), 45 MG PO DAILY, (Reported) Discontinued Reason: No Longer Taking Polyethylene Glycol 3350 (Miralax), 17 GM PO DAILY, (Reported) Discontinued Reason: No Longer Taking Potassium Chloride (Potassium Chloride), 10 MEQ PO DAILY, (Reported) Discontinued Reason: Duplicate Order Urea (Urea), 1 APPLIC TOP UD PRN for ITCHING, (Reported) Discontinued Reason: No Longer Taking Current Medications Current Medications Reviewed Review of Systems Constitutional: see HPI, malaise, weakness EENTM: no symptoms reported Respiratory: dyspnea on exertion, orthopnea, short of breath Cardiovascular: no symptoms reported Gastrointestinal: no symptoms reported Genitourinary: no symptoms reported Musculoskeletal: back pain, joint pain Skin: no symptoms reported Psychiatric/Neurological: Anxiety, Depressed All Other Systems Reviewed Negative Unless Noted: Yes Physical Exam Physical Exam Vital Signs Capillary Refill : Height, Weight, BMI Height: 5'8.00" Weight: 213lbs. 0.0oz. 96.541487pm; 42.69 BMI Method:Stated General Appearance: No Apparent Distress, WD/WN, Chronically ill, Obese Eyes: Bilateral Eye Normal Inspection, Bilateral Eye PERRL HEENT: PERRL/EOMI, Normal ENT Inspection, Pharynx Normal Neck: Full Range of Motion, Normal Inspection, Non Tender, Supple, Carotid Bruit Respiratory: Chest Non Tender, Lungs Clear, No Accessory Muscle Use, No Respiratory Distress, Decreased Breath Sounds Cardiovascular: Regular Rate, Rhythm, No Gallop, No JVD, No Murmur, Normal Peripheral Pulses Gastrointestinal: Normal Bowel Sounds, No Organomegaly, No Pulsatile Mass, Non Tender, Soft Back: Normal Inspection, No CVA Tenderness, No Vertebral Tenderness Extremity: Normal Capillary Refill, Normal Inspection, Normal Range of Motion, Non Tender, No Calf Tenderness, No Pedal Edema Neurologic/Psychiatric: Alert, Oriented x3, Normal Mood/Affect, staff attorney II-XII Norm as Tested, Abnormal Gait, Motor Weakness (generalized weakness) Skin: Normal Color, Warm/Dry Lymphatic: No Adenopathy PM&R Medical Assessment & Plan REHAB/MEDICAL ASSESSMENT AND PLAN: REHAB IMPAIRMENT GROUP: Myopathy ETIOLOGIC DIAGNOSIS: Respiratory failure with critical illness myopathy The comorbidities that impact the patients function and/or functional outcome by: advanced age, fall risk, severe dyspnea, volume overload, DM REHAB PLAN: The patient is being admitted to our comprehensive inpatient rehabilitation facility and can tolerate the intensity of service consisting of at least: 180 minutes of therapy a day, 5 out of 7 days a week Rehab treatment will consist of: PT OT will focus on regaining function in order to return home while weaning O2 and increasing ambulation stamina and independence in ADL's The patient/family has a good understanding of our discharge process and will benefit from an interdisciplinary inpatient rehabilitation program. The patient has potential to make improvement and is in need of at least two of the following multidisciplinary therapies including but not limited to physical, occupational, speech, and prosthetics and orthotics. Additionally the patient will need services from respiratory, nutritional services, wound care, psychology, etc. (Customize this to each patient). Given the patients complex condition and risk of further medical complications, rehabilitation services cannot be safely or effectively provided at a lower level of care such as a chcf facility. BARRIERS TO DISCHARGE: advanced age and dyspnea with hypoxia ESTIMATED LOS: 10 days DISPOSITION: Home RELEVANT CHANGES SINCE PREADMISSION SCREENING: I have compared the patients medical and functional status at the time of the preadmission screening and there are: no changes PROGNOSIS: Good REHABILITATION GOALS: 1. PT OT will focus on regaining function in order to return home while weaning O2 and increasing ambulation stamina and independence in ADL's All the above goals were reviewed with the patient and he/she is in agreement. By signing this document, I acknowledge that I have personally performed a full physical examination on this patient within 24 hours of admission to this inpatient rehabilitation facility and have determined the patient to be able to tolerate the above course of treatment at an intensive level for a reasonable period of time. I will be completing a detailed individualized Plan of Care for this patient by day #4 of the patients stay based upon the Preadmission Screen, the Post-Admission Evaluation, and the therapy evaluations. Admission Dx/Comorbidities: (1) Myopathy ICD Codes: G72.9 - Myopathy, unspecified (2) Obesity Status: Chronic ICD Codes: E66.9 - Obesity, unspecified (3) T2DM (type 2 diabetes mellitus) Status: Acute ICD Codes: E11.9 - Type 2 diabetes mellitus without complications (4) HTN (hypertension) Status: Acute ICD Codes: I10 - Essential (primary) hypertension (5) Respiratory failure Status: Acute ICD Codes: J96.90 - Respiratory failure, unspecified, unspecified whether with hypoxia or hypercapnia (6) Pulmonary edema Status: Acute ICD Codes: J81.1 - Chronic pulmonary edema (7) History of diverticulosis Status: Acute ICD Codes: Z87.19 - Personal history of other diseases of the digestive system (8) GERD (gastroesophageal reflux disease) Status: Chronic ICD Codes: K21.9 - Gastro-esophageal reflux disease without esophagitis (9) Lymphoma ICD Codes: C85.90 - Non-Hodgkin lymphoma, unspecified, unspecified site Assessment/Plan Assessment and Plan Assess & Plan/Chief Complaint Acute Rectal Bleeding -upper vs. lower GI bleed. 2nd to diverticulosis vs. internal hemorrhoid vs mass vs upper GI. -No history of Blood thinner use and normal coag study. -NPO. Hold ASA until bleeding stops. Zofran for nausea. Consult Surg Anemia -Hgb 8.9 today down from 10.8 on 12/04. Will monitor and replace with pRBC for Hgb < 8.0 given CAD history. Insulin Dependent Diabetes -Insulin sliding scale HX CAD -Heart Cath 12/02/[address] Sharma -> Multi-vessel disease. Refferal placed to Dr. Benjamin at [facility] to discuss CABG. LVEF of 60% at that time. -Praluent Injectable for HLD. Allergic to statins. -Cardiology Consulted with recommendations appreciated HLD HTN -Will monitor BP and restart home meds as able. Hypothyroidism -Continue home medications Assessment/Plan Assessment and Plan Assess & Plan/Chief Complaint Assessment: Myopathy from respiratory failure Acute respiratory failure now O2 dependent CAD HTN HLP Obesity Hypothyroidism DM Obesity Plan: Wean O2 slowly PT OT Home meds Monitor volume overload MICKEY BLOUNT DO Apr 16, 2023 14:07
--- NOTE | 2023-04-16 14:14 | Occupational Therapy Eval ---
OT Evaluation-General/PLF Medical Diagnosis Admission Date Apr 16, 2023 at 13:50 Medical Diagnosis: Myopathy Onset Date: Apr 13, 2023 Therapy Diagnosis Therapy Diagnosis: proximal weakness, low endurance, SOA Height/Weight Height (Feet): 5 Height (Inches): 8.00 Weight (Pounds): 213 Weight (Ounces): 0.0 Precautions Precautions/Isolations: Standard Precautions Referral Referral Reason: Activity Tolerance, Self Care, Evaluation/Treatment, Strengthening/ROM Medical History Pertinent Medical History: Atrial Fib, Arthritis, CVA, DM, HTN, Hypothroidism, Lymphoma, OA Additional Medical History 83 year old female with PMH HTN, T2DM, HLD, AFib, CHF, CAD, hypothyroidism, NHL, history of recurrent GI bleed, who presented with shortness of breath. She also had a non-productive cough. She denies fevers and chills. She denies chest pain. She denies abdominal pain, nausea, vomiting, and diarrhea. She has no other complaints or concerns. She is not on anticoagulation for AFib due to recurrent GI bleeding. 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 She has a histroy of non-Hodgkin's lymphoma and follows with Dr. Torres. Admitted to [facility] 04/13/23 w/ respiratory failure w/ hypoxia. Transferred to [facility] 04/16/23 Social History Home: Single Level (with sn) Current Living Status: Other Family Entry Into Home: Ramp (do nt use when wet), Stairs With Railing Steps Into Home: 4 Steps Inside Home: 0 ADL-Prior Level of Function SCALE: Activities may be completed with or without assistive devices. 1-Hkvvcdixsx-iikhbsl completes the activity by him/herself with no assistance from a helper. 5-Set-up or Clean-up Assistance-helper sets up or cleans up; patient completes activity. [place] assists only prior to or following the activity. 4-Supervision or Touching Assistance-helper provides verbal cues and/or touching/steadying and/or contact guard assistance as patient completes activity. Assistance may be provided throughout the activity or intermittently. 3-Partial/Moderate Assistance-helper does LESS THAN HALF the effort. [place] lifts, holds or supports trunk or limbs, but provides less than half the effort. 2-Substantial/Maximal Assistance-helper does MORE THAN HALF the effort. [place] lifts or holds trunk or limbs and provides more than half the effort. 1-Echbqsmrg-iirxir does ALL the effort. Patient does none of the effort to complete the activity. Or, the assistance of 2 or more helpers is required for the patient to complete the activity. If activity was not attempted, code reason: 7-Patient Refused. 9-Not Applicable-not attempted and the patient did not perform the activity before the current illness, exacerbation or injury. 10-Not Attempted due to Environmental Limitations-(lack of equipment, weather restraints, etc.). 88-Not Attempted due to Medical Conditions or Safety Concerns. ADL PLOF Comments 2 bathrooms Self Care: Needed Some Help (unable t bath w/o assistance) Functional Cognition: Independent DME/Equipment: Tub/Shower DME/Equipment Comments Stand up walker, Patient is not receptive to FWW. SPC, sleeps in recliner "ROLL CUTTER bath" Occupation: Patient reports she has fallen on the ramp, has assistance w/ steps and car Drive Self: No OT Current Status Mental Status/Objective Patient Orientation: Person Attachments: Oxygen (2 liters) Current Glasses/Contacts: Yes (visually impaired) Hearing Aids: No (needs them) Hand Dominance: Right Upper Extremity ROM BUE ROM WFLS, limited close joint approximation d/t excessive soft tissue and large panis Upper Extremity Sensation INTACT Upper Extremity Strength +3/5 BUE grossly ADL-Treatment ADL-Current OT request family to bring 3-5 sets of clothes, family reports they will bring clothes daily Eating (QC): 6 Oral Hygiene (QC): 5 Shower/Bathe Self (QC): 88 Upper Body Dressing (QC): 5 Lower Body Dressing (QC): 3 On/Off Footwear (QC): 7 (declined, socks already on, patient reports she does not wear socks at home.) Toileting Hygiene (QC): 7 (Patient declined use of tiolet) Education OT Patient Education: Correct positioning, Energy conservation, Exercise program, Instructions to caregiver, Modified ADL techniques, Progress toward Goa l/Update tx plan, Purpose of tx/functional activities, Reviewed precautions, Rehab process, Safety issues, Transfer techniques, Use of adapted equipment Teaching Recipient: Patient, Family Teaching Methods: Demonstration, Discussion Response to Teaching: Verbalize Understanding, Reinforcement Needed BIMS CAM BIMS Expression of Ideas and Wants: Without Difficulty Understanding Verbal Content: Understands Brief Interview/Mental Status: Yes IRF CHIDI BIMS: IRF CHIDI BIMS Response (Comments) Value Repitition of Three Words Three 3 Recalls Socks Yes, No Cue Required 2 Recalls Blue Yes, No Cue Required 2 Recalls Bed Yes, No Cue Required 2 Year Correct 3 Month Accurate Within 5 Days 2 Day Correct 1 Total 15 Patient Normally Able to Recal: Current Session, Location of own room, That he/she in a hsp Should Staff Asses. Mental St.: No CAM Mental Status Change/Baseline: 0 Inattention: 0 Disorganized thinkin Altered level of consciousness: 0 OT Short Term Goals Short Term Goals Time Frame: Apr 20, 2023 Oral hygiene: 5 (standing) Toileting hygiene: 5 Putting on/taking off footwear: 5 OT Mcc Goals Data Systems Analyst Goals Eating (QC): 6 Oral Hygiene (QC): 6 Toileting Hygiene (QC): 6 Shower/Bathe Self (QC): 6 Upper Body Dressing (QC): 6 Lower Body Dressing (QC): 6 On/Off Footwear (QC): 6 1=Demonstrate adherence to instructed precautions during ADL tasks. 2=Patient will verbalize/demonstrate understanding of assistive devices/modifications for ADL. 3=Patient will improve strength/tolerance for activity to enable patient to perform ADL's. OT Education/Plan Problem List/Assessment Assessment: Decreased Activ Tolerance, Decreased UE Strength, Impaired Cognition, Impaired Coordination, Impaired Funct Balance, Impaired Self-Care Skills Discharge Recommendations Plan/Recommendations: Continue POC Equpiment Recommendations-D/C: Bath Chair, Extended Shower Sprayer, Hip Kit, Toilet Riser Treatment Plan/Plan of Care Treatment,Training & Education: Yes Patient would benefit from OT for education, treatment and training to promote independence in ADL's, mobility, safety and/or upper extremity function for ADL's. Plan of Care: ADL Retraining, Concurrent Therapy, Functional Mobility, Group Exercise/Act as Ind, Visual/Perceptual Retrain Treatment Duration: Apr 22, 2023 Frequency: Modified Program (IRF) (75 [id number]) Estimated Hrs Per Day: Other (75 [id number]) Agreement: Yes Rehab Potential: Guarded Time Start Time: 14:10 Stop Time: 14:30 DATE: Apr 16, 2023 Total Time Billed (hr/min): 20 Billed Treatment Time EVM 20 min KAITY PARMAR OT Apr 16, 2023 14:14
[2023-04-16] MEDS ORDERED: MELATONIN 3 MG TABLET PO PRN ×2 (14:15→14:30)
[2023-04-16] MEDS ORDERED: Sodium Phosphate/Sodium Biphosphate ADULT enema PR PRN (14:15)
[2023-04-16] MEDS ORDERED: LOPERAMIDE 2 MG CAPSULE PO PRN (14:15)
[2023-04-16] MEDS ORDERED: ALPRAZolam 0.25 MG TABLET PO PRN (14:15)
[2023-04-16] MEDS ORDERED: guaiFENesin/CODEINE 10ML UDC PO PRN (14:15)
[2023-04-16] MEDS ORDERED: diphenhydrAMINE 25 MG TABLET PO PRN (14:15)
[2023-04-16] MEDS ORDERED: LACTULOSE SYRUP 10GM/15ML 30ML UDC PO PRN ×2 (14:15→14:30)
[2023-04-16] MEDS ORDERED: ONDANSETRON 4 MG ORAL DISSOLVE TABLET PO PRN ×2 (14:15→14:30)
[2023-04-16] MEDS ORDERED: CALCIUM CARBONATE 500 MG CHEW TABLET PO PRN ×2 (14:15→14:30)
[2023-04-16] MEDS ORDERED: DOCUSATE SODIUM 100 MG CAPSULE PO PRN (14:15)
[2023-04-16] MEDS ORDERED: BISACODYL 10 MG SUPPOSITORY PR PRN ×2 (14:15→14:30)
[2023-04-16] MEDS ORDERED: ANTACID SUSPENSION 30 ML UDC PO PRN (14:30)
[2023-04-16] MEDS ORDERED: MILK OF MAGNESIA 400 MG/5 ML 30 ML UDC PO PRN (14:30)
[2023-04-16] MEDS ORDERED: RT-ALBUTEROL SULF 2.5 MG/3 ML PRE-MIX VIAL INH PRN (14:30)
[2023-04-16] MEDS ORDERED: ACETAMINOPHEN 325 MG TABLET PO PRN (14:30)
[2023-04-16] MEDS ORDERED: ONDANSETRON INJECTION 4 MG/2 ML (SDV) IV PRN (14:30)
--- NOTE | 2023-04-16 14:57 | Progress Note ---
[facility] 04/16/23 1457: Progress Note CC: myopathy and lower limb weakness HPI: 83 y/o female presented to the ED with SOB after waking up Thursday morning gasping for air. Patient said she suddenly woke up and could not breath but had no associated chest pain or weakness. She said she did not lose consciousness. She arrived with her family to the ER and had a chest X- ray which showed b/l pulmonary edema and she was put on oxygen and given IV Lasix. Her family stated she also had pulmonary edema and a similar gasping incidence this November when she was in the hospital for diverticulitis w/ rectal bleeding. After admission there was noted b/l edema in her legs which improved but she felt very weak. She has not been able to ambulate since her arrival which she was able to do just fine before. She does note that she has had shingles since May and the rash and keeps reappearing on her head. Her family states she had not ambulated much si nce her infection. PMH: Afib, HTN, T2DM, Hyperlipidemia, CAD ( inoperable- blockage in left main coronary artery, Left circumflex coronary artery, LAD, RCA, managed with meds) hypothyroidism, non-Hodgkin lymphoma, diverticulitis ( November 2022), basal cell carcinoma, dry macular degeneration PSH: Hysterectomy, oophortectomy, tonsillectomy, cataracts Meds: Acetaminophen (Tylenol Extra Strength) 500 Mg Tablet, 1,000 MG PO Q8H PRN for PAIN-MILD (1-4), Alirocumab (Praluent Pen) 75 Mg/Ml Pen.injctr, 75 MG SQ [id number] Carboxymethylcellulos/Glycerin (Refresh Relieva 0.5-0.9% Drop) 0.5 %-0.9 % Drops, 1 DROP OS QID PRN for DRY EYES, Carboxymethylcellulose Sodium (Refresh Tears) 0.5 % Drops, 1 DROP OD QID PRN for DRY EYES Carvedilol (Carvedilol) 12.5 Mg Tablet, 12.5 MG PO BID, Cholecalciferol (Vitamin D3) (Vitamin D3) 25 Mcg (1000 Unit) Tablet, 50 MCG PO BID, Clobetasol Propionate (Clobetasol Propionate) 0.05 % Cream..g., 1 APPLIC TP BID Dextrose (Glucose) 4 Gram Tab.chew, 4 GM PO UD PRN for HYPOGLYCEMIA, Diclofenac Sodium (Diclofenac Sodium) 1 % Gel..gram., 1 APPLIC TOP QID PRN for PAIN-BREAKTHROUGH Furosemide (Furosemide) 20 Mg Tablet, 20 MG PO DAILY, Insulin Glargine-Yfgn (Semglee (Yfgn) Pen) 100 Unit/Ml (3 Ml) Insuln.pen, 28 UNIT SQ BID, Levothyroxine Sodium (Levothyroxine Sodium) 75 Mcg Tablet, 75 MCG PO DAILY, Loratadine (Loratadine) 10 Mg Tablet, 10 MG PO DAILY, Nitroglycerin (Nitroglycerin) 0.4 Mg Tab.subl, 0.4 MG SL UD PRN for CHEST PAIN, Oxybutynin Chloride (Oxybutynin Chloride ER) 10 Mg Tab.er.24, 10 MG PO DAILY, Pantoprazole Sodium (Pantoprazole Sodium) 40 Mg Tablet.dr, 40 MG PO DAILY Pioglitazone HCl (Pioglitazone HCl) 45 Mg Tablet, 45 MG PO DAILY, Polyethylene Glycol 3350 (Miralax) 17 Gram Powd.pack, 17 GM PO DAILY Potassium Chloride (Potassium Chloride) 10 Meq Capsule.er, 10 MEQ PO DAILY Urea (Urea) 20 % Cream..g., 1 APPLIC TOP UD PRN for ITCHING, Vit C/E/Zn/Coppr/Lutein/Zeaxan (Preservision Areds 2 Softgel) 250MG-90MG C apsule, 1 EACH PO BID All: Cozaar- cough Statins- muscle aches Latex lisinopril- cough seasonal SH: Smoking history, no other recreational drug use, ocassional alcohol 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 sensation intact b/l Assessment: acute pulmonary edema Acute respiratory failure- hypoxia HTN T2DM Hyperlipidemia Hypothyroidism Afib CAD Plan: conintue to monitor labs and vitals continue Lasix PT and OT- LE weakness ambulate Follow up- chest x-ray BREANA BLOUNT DO 04/16/231955: Supervisory-Addendum Brief Verification & Attestation Participated in pt care: history, MDM, physical Personally performed: exam, history, MDM, supervision of care Care discussed with: Medical Student Procedures: n/a Results interpretation: Verified all documentation Verification and Attestation of Medical Student E/M Service A medical student performed and documented this service in my presence. I reviewed and verified all information documented by the medical student and made modifications to such information, when appropriate. I personally performed the physical exam and medical decision making. Breana Blount, Apr 16, 2023,19:56 ORTIZ Apr 16, 2023 14:57 BREANA BLOUNT DO Apr 16, 2023 19:56
--- NOTE | 2023-04-16 15:52 | Physical Therapy Evaluation ---
PT Evaluation-General Medical Diagnosis Admission Date Apr 16, 2023 at 13:50 Medical Diagnosis: Myopathy Onset Date: Apr 13, 2023 Therapy Diagnosis Therapy Diagnosis: Proximal weakness; Decreased functional mobility Height/Weight Height (Feet): 5 Height (Inches): 8.00 Weight (Pounds): 213 Weight (Ounces): 0.0 Precautions Precautions/Isolations: Fall Prevention, Standard Precautions Weight Bear Status Right Lower Extremity: Right Full Weight Bearing Left Lower Extremity: Left Full Weight Bearing Referral Physician: Espinoza Reason for Referral: Evaluation/Treatment Medical History Pertinent Medical History: Atrial Fib, Arthritis, CVA, DM, HTN, Hypothroidism, Lymphoma, OA Additional Medical History Atrial Fib, Arthritis, CVA, DM, HTN, Hypothroidism, Lymphoma, OA Current History 83 y/o female with PMH of HTN, T2DM, HLD, AFib, CHF, CAD, hypothyroidism, NHL, history of recurrent GI bleed, who presented with shortness of breath; Admitted to [facility] 04/13/23 w/ respiratory failure w/ hypoxia; Transferred to [facility] 04/16/23 Reviewed History: Yes Social History Home: Single Level (with son) Current Living Status: Other Family Entry Into Home: Ramp (does not use when its wet ), Stairs With Railing PT Steps Into Home: 4 PT Steps Inside Home: 0 Pt lives in a single story home with family. 4 steps with B HR or a ramp to enter. Tub shower, SC, tall toilet Prior Prior Level of Function SCALE: Activities may be completed with or without assistive devices. 8-Izrubnsylm-wdhbmrh completes the activity by him/herself with no assistance from a helper. 5-Set-up or Clean-up Assistance-helper sets up or cleans up; patient completes activity. [place] assists only prior to or following the activity. 4-Supervision or Touching Assistance-helper provides verbal cues and/or touching/steadying and/or contact guard assistance as patient completes activity. Assistance may be provided throughout the activity or intermittently. 3-Partial/Moderate Assistance-helper does LESS THAN HALF the effort. [place] lifts, holds or supports trunk or limbs, but provides less than half the effort. 2-Substantial/Maximal Assistance-helper does MORE THAN HALF the effort. [place] lifts or holds trunk or limbs and provides more than half the effort. 5-Lgptrgzhj-zbxvmc does ALL the effort. Patient does none of the effort to complete the activity. Or, the assistance of 2 or more helpers is required for the patient to complete the activity. If activity was not attempted, code reason: 7-Patient Refused. 9-Not Applicable-not attempted and the patient did not perform the activity before the current illness, exacerbation or injury. 10-Not Attempted due to Environmental Limitations-(lack of equipment, weather restraints, etc.). 88-Not Attempted due to Medical Conditions or Safety Concerns. Bed Mobility: 6 Transfers (B,C,W/C): 6 Gait: 6 Stairs: 6 Wheelchair Mobility: 9 Indoor Mobility (Ambulation): Independent Stairs: Independent Prior Devices Use: Walker At [facility], pt was Mod I in the home with a stand-up walker, as well as negotiating stairs/the ramp to enter/exit the home. Pt reports having a tub shower that she doesn't really use and doing sponge baths. Has a stand-up walker and SPC PT Evaluation-Current Subjective Pt is agreeable to PT eval. Pain Numeric Pain Scale: 0-No Pain Location: No Pain Reported Section J - Health Conditions 1. Rarely or not at all 2. Occasionally 3. Frequently 4. Almost constantly 8. Unable to answer Pain Effect on Sleep: 1 Pain Interference with Therapy: 1 Pain Interference w/Day-to-Day: 1 Pt/Family Goals Safely return home Objective Patient Orientation: Person, Place, Time, Situation Attachments: Oxygen (2L ) ROM/Strength ROM Upper Extremities See OT eval ROM Lower Extremities WFL Strength Upper Extremities See OT eval Strength Lower Extremities B hip MMT = 3-/5; B knee MMT = 3+/5; B ankle MMT = 4-/5 Integumentary/Posture Integumentary See nurses note Bowel Incontinence: No Bladder Incontinence: No Sensory Vision: Functional Hearing: Functional Hand Dominance: Right Sensation Right Upper Extremit: Intact Sensation Left Upper Extremity: Intact Sensation Right Lower Extremit: Intact Sensation Left Lower Extremity: Intact Transfers Roll Left & Right (QC): 3 (Min A ) Sit to Lying (QC): 3 (Min A ) Lying to Sitting/Side of Bed(Q: 3 (Min A ) Sit to Stand (QC): 4 (CGA ) Chair/Zhp-up-Eqjfd Xfer(QC): 4 (CGA ) Toilet Transfer (QC): 4 (CGA ) Car Transfer (QC): 4 (CGA ) Gait Does the Patient Walk?: Yes Mode of Locomotion: Walk Anticipated Mode of Locomotion: Walk Walk 10 feet (QC): 4 (CGA ) Walk 50 ft with 2 Turns(QC): 4 (CGA ) Walk 150 ft (QC): 4 (CGA ) Walking 10ft/uneven surface-QC: 4 (CGA ) Gait Assistive Device: FWW Wheelchair Training Does the Pt Use a Wheelchair?: No Wheel 50 ft with 2 turns (QC): 9 Wheel 150 ft (QC): 9 Type of Wheelchair: N/A Stairs #of Steps: 4 1 Step (curb) (QC): 4 (CGA) 4 Steps (QC): 4 (CGA ) 12 Steps (QC): 9 Walking Assistive Device: Walker Balance Sitting Static: Good Sitting Dynamic: Good Standing Static: Fair Standing Dynamic: Fair Picking up an Object (QC): 4 (CGA ) Special Test Comments KU standing balance scale = 3+/5 (goal = 4+/5) Treatment PT eval completed Assessment/Needs Pt tolerated PT well with good effort Rehab Potential: Good Post Rehab Potential-Barriers: Proximal weakness; Low endurance Equipment Needs N/A PT Penitentiary Goals Penitentiary Goals PT Penitentiary Goals Time Frame: Apr 30, 2023 Roll Left to Right (QC): 6 (Pt will be Mod I with functional mobility to safely return home with family ) Sit to Lying (QC): 6 (Pt will be Mod I with functional mobility to safely return home with family ) Lying-Sitting on Side/Bed(QC): 6 (Pt will be Mod I with functional mobility to safely return home with family ) Sit to Stand (QC): 6 (Pt will be Mod I with functional mobility to safely return home with family ) Chair/Hxh-jv-Xwgjo Xfer(QC): 6 (Pt will be Mod I with functional mobility to safely return home with family ) Toilet/Commode Transfer (QC): 6 (Pt will be Mod I with functional mobility to safely return home with family ) Car Transfer (QC): 6 (Pt will be Mod I with functional mobility to safely return home with family ) Does the Patient Walk: Yes Walk 10 feet (QC): 6 (Pt will be Mod I with functional mobility to safely return home with family ) Walk 10ft-Uneven Surface(QC): 6 (Pt will be Mod I with functional mobility to safely return home with family ) Walk 50ft with 2 Turns (QC): 6 (Pt will be Mod I with functional mobility to safely return home with family ) Walk 150 ft (QC): 6 (Pt will be Mod I with functional mobility to safely return home with family ) Does the Pt use WC or Scooter?: No Wheel 50 feet with 2 turns (QC: 9 Type: N/A Wheel 150 feet: 9 Type: N/A 1 Step (curb) (QC): 6 (Pt will be Mod I with functional mobility to safely return home with family ) 4 Steps (QC): 6 (Pt will be Mod I with functional mobility to safely return home with family ) 12 Steps (QC): 9 Picking up an Object (QC): 6 (Pt will be Mod I with functional mobility to safely return home with family ) KU standing balance goal = 4+/5 PT Plan Problem List Problem List: Activity Tolerance, Functional Strength, Safety, Balance, Gait, Transfer, Bed Mobility, ROM Treatment/Plan Treatment Plan: Continue Plan of Care Treatment Plan: Bed Mobility, Concurrent Therapy, Education, Functional Activity Timothy, Functional Strength, Group Therapy, Gait, Safety, Therapeutic Exercise, Transfers Treatment Duration: Apr 30, 2023 Frequency: At least 5 of 7 days/Wk (IRF) Estimated Hrs Per Day: 1.5 hours per day Patient and/or Family Agrees t: Yes Safety Risks/Education Patient Education: Gait Training, Transfer Techniques, Steps, Correct Positioning, Safety Issues Teaching Recipient: Patient Teaching Methods: Demonstration, Discussion Response to Teaching: Verbalize Understanding, Return Demonstration, Reinforcement Needed Discharge Recommendations Therapy Discharge Recommendati: Home & Family Equpiment Recommendations-D/C: None Discharge Status/Home Program Cont per POC Barriers to Progress Proximal/core weakness; Decreased endurance Target Placement Home with family support Time Time In: 1430 Time Out: 1450 DATE: Apr 16, 2023 Total Billed Treatment Time: 20 Total Billed Treatment 20 min FAM ZAPIEN PT Apr 16, 2023 15:52
[2023-04-16] MEDS ORDERED: inSUlin ASPART 1 UNIT/0.01 ML (PER UNIT) SC SCH (16:00)
--- NOTE | 2023-04-16 17:38 | Occupational Ther Daily Note ---
OT Current Status-Daily Note Subjective Pt agrees to therapy. Nrsg in room. Co-treat with PT([id number]) to decrease fall risk, increase activity tolerance and overall strength. PT focusing on standing and B LE strengthening while OT focusing on ADLs, functional tasks and B UE strengthening. Mental Status/Objective Patient Orientation: Person, Place, Time, Situation ADL-Treatment Therapy Code Descriptions/Definitions Functional [place] Measure: 0=Not Assessed/NA 4=Minimal Assistance 1=Total Assistance 5=Supervision or Setup 2=Maximal Assistance 6=Modified [place] 3=Moderate Assistance 7=Complete IndependenceSCALE: Activities may be completed with or without assistive devices. 7-Pxifnxkeda-dmmtffo completes the activity by him/herself with no assistance from a helper. 5-Set-up or Clean-up Assistance-helper sets up or cleans up; patient completes activity. [place] assists only prior to or following the activity. 4-Supervision or Touching Assistance-helper provides verbal cues and/or touching/steadying and/or contact guard assistance as patient completes activity. Assistance may be provided throughout the activity or intermittently. 3-Partial/Moderate Assistance-helper does LESS THAN HALF the effort. [place] lifts, holds or supports trunk or limbs, but provides less than half the effort. 2-Substantial/Maximal Assistance-helper does MORE THAN HALF the effort. [place] lifts or holds trunk or limbs and provides more than half the effort. 0-Pnyvkljsw-miwlit does ALL the effort. Patient does none of the effort to complete the activity. Or, the assistance of 2 or more helpers is required for the patient to complete the activity. If activity was not attempted, code reason: 7-Patient Refused. 9-Not Applicable-not attempted and the patient did not perform the activity before the current illness, exacerbation or injury. 10-Not Attempted due to Environmental Limitations-(lack of equipment, weather restraints, etc.). 88-Not Attempted due to Medical Conditions or Safety Concerns. Other Treatment Pt demonstrates ability to complete sit to stand and maintain standing for ~ 5 min without LOB using FWW, SBA to CGA. Pt tolerated activities completed during session without SOA. After therapy, pt sitting in recliner with call light/phone in reach. Nrsg present in room. All needs met. OT Short Term Goals Short Term Goals Time Frame: Apr 20, 2023 Oral hygiene: 5 (standing) Toileting hygiene: 5 Putting on/taking off footwear: 5 OT Chcf Goals Parts Room Assistant Goals Acute change in mental status: 0 Inattention: 0 Disorganized thinkin Altered level of consciousness: 0 Eating (QC): 6 Oral Hygiene (QC): 6 Toileting Hygiene (QC): 6 Shower/Bathe Self (QC): 6 Upper Body Dressing (QC): 6 Lower Body Dressing (QC): 6 On/Off Footwear (QC): 6 1=Demonstrate adherence to instructed precautions during ADL tasks. 2=Patient will verbalize/demonstrate understanding of assistive devices/modifications for ADL. 3=Patient will improve strength/tolerance for activity to enable patient to perform ADL's. OT Education/Plan Problem List/Assessment Assessment: Decreased Activ Tolerance, Decreased UE Strength, Impaired Funct Balance, Impaired Self-Care Skills Discharge Recommendations Plan/Recommendations: Continue POC Treatment Plan/Plan of Care Patient would benefit from OT for education, treatment and training to promote independence in ADL's, mobility, safety and/or upper extremity function for ADL's. Plan of Care: ADL Retraining, Concurrent Therapy, Functional Mobility, Group Exercise/Act as Ind, Visual/Perceptual Retrain Treatment Duration: Apr 22, 2023 Frequency: Modified Program (IRF) (75 [id number]) Estimated Hrs Per Day: Other (75 [id number]) Agreement: Yes Rehab Potential: Good Time Start Time: 16:15 Stop Time: 16:53 DATE: Apr 16, 2023 Total Time Billed (hr/min): 38 Billed Treatment Time 1 visit-FA 2 (38 min) co-treat with PT 38 min YAMEL HUNG Apr 16, 2023 17:38
[2023-04-16] MEDS: inSUlin ASPART 1 UNIT/0.01 ML (PER UNIT) SC SCH ×2 (17:40→20:59)
--- NOTE | 2023-04-16 17:49 | Therapy Group Daily Note ---
Therapy Daily Group Note Patient Education Topic Other List Below (memory and ARU expectations/) Exercises LE Seated Exercise, UE Exercise Session Ratio (pt:therapist): 2:1 Goal of Session: Education on ARU Expectations, Memory Strategies, UE/LE Strengthing Goal Met for this Session: Yes Pt Benefit of Group: Contributions to Others, F/U Use of Strategies @Home, Increased Functional Safety, Increased Functional Strength, Improved Cognition, Recognition of Peers, Socialization Other/Notes Pt ambulated using FWW to therapy gym for OT/PT group. Group consisted of introductions(name, place living, Dx), socialization, B UE/LE seated exercises and memory education/strategies. Pt introduced self appropriately and actively listened to persons. Pt tolerated B UE/LE strengthening exercises and completed with correct technique with skilled instruction. Pt's verbalized understanding of educational topic of memory and gave personal strategies. After session, pt sitting in w/c with call light/phone in reach. All needs met in room. Start Time: 14:50 Stop Time: 16:05 Total Billed Treatment Time: 75 Total Billed Treatment 1-GRP YAMEL HUNG PUPPET ENGINEER Apr 16, 2023 17:49 Vivi Santillan PT Apr 17, 2023 13:18
--- NOTE | 2023-04-16 17:55 | Physical Therapy Daily Note ---
PT Daily Note-Current Subjective Pt agrees to therapy. Nrsg in room. Co-treat with OT ([id number]) to decrease fall risk, increase activity tolerance and overall strength. PT focusing on standing and B LE strengthening while OT focusing on ADLs, functional tasks and B UE strengthening. Pain Numeric Pain Scale: 0-No Pain Location: No Pain Reported Section J - Health Conditions 1. Rarely or not at all 2. Occasionally 3. Frequently 4. Almost constantly 8. Unable to answer Pain Effect on Sleep: 1 Pain Interference with Therapy: 1 Pain Interference w/Day-to-Day: 1 Transfers SCALE: Activities may be completed with or without assistive devices. 1-Vxvmmutncn-mmahpqp completes the activity by him/herself with no assistance from a helper. 5-Set-up or Clean-up Assistance-helper sets up or cleans up; patient completes activity. [place] assists only prior to or following the activity. 4-Supervision or Touching Assistance-helper provides verbal cues and/or touching/steadying and/or contact guard assistance as patient completes activity. Assistance may be provided throughout the activity or intermittently. 3-Partial/Moderate Assistance-helper does LESS THAN HALF the effort. [place] lifts, holds or supports trunk or limbs, but provides less than half the effort. 2-Substantial/Maximal Assistance-helper does MORE THAN HALF the effort. [place] lifts or holds trunk or limbs and provides more than half the effort. 3-Lqsyamdri-pbyymi does ALL the effort. Patient does none of the effort to complete the activity. Or, the assistance of 2 or more helpers is required for the patient to complete the activity. If activity was not attempted, code reason: 7-Patient Refused. 9-Not Applicable-not attempted and the patient did not perform the activity before the current illness, exacerbation or injury. 10-Not Attempted due to Environmental Limitations-(lack of equipment, weather restraints, etc.). 88-Not Attempted due to Medical Conditions or Safety Concerns. Sit to Stand (QC): 4 Weight Bearing Right Lower Extremity: Right Full Weight Bearing Left Lower Extremity: Left Full Weight Bearing Gait Training Gait Assistive Device: FWW Treatments Pt demonstrates ability to complete sit to stand and maintain standing for ~ 5 min without LOB using FWW, SBA - CGA. Pt tolerated activities completed during session without SOA. Cont pt edu about ARU expectations and work flow. After therapy, pt sitting in recliner with call light/phone in reach. Nrsg present in room. All needs met. Assessment Current Status: Good Progress Pt tolerated PT well with good effort PT Intermediate Goals Safe Deposit Attendant Goals PT Safe Deposit Attendant Goals Time Frame: Apr 30, 2023 Roll Left & Right (QC): 6 (Pt will be Mod I with functional mobility to safely return home with family ) Sit to Lying (QC): 6 (Pt will be Mod I with functional mobility to safely return home with family ) Lying-Sitting on Side/Bed(QC): 6 (Pt will be Mod I with functional mobility to safely return home with family ) Sit to Stand (QC): 6 (Pt will be Mod I with functional mobility to safely return home with family ) Chair/Ttc-es-Hsdsz Xfer(QC): 6 (Pt will be Mod I with functional mobility to safely return home with family ) Toilet Transfer (QC): 6 (Pt will be Mod I with functional mobility to safely return home with family ) Car Transfer (QC): 6 (Pt will be Mod I with functional mobility to safely return home with family ) Does the Patient Walk: Yes Walk 10 feet (QC): 6 (Pt will be Mod I with functional mobility to safely return home with family ) Walk 50ft with 2 Turns (QC): 6 (Pt will be Mod I with functional mobility to safely return home with family ) Walk 150 ft (QC): 6 (Pt will be Mod I with functional mobility to safely return home with family ) Walking 10ft on Uneven Surface: 6 (Pt will be Mod I with functional mobility to safely return home with family ) 1 Step (curb) (QC): 6 (Pt will be Mod I with functional mobility to safely return home with family ) 4 Steps (QC): 6 (Pt will be Mod I with functional mobility to safely return home with family ) 12 Steps (QC): 9 Picking up an Object (QC): 6 (Pt will be Mod I with functional mobility to safely return home with family ) Does the Pt use WC or Scooter?: No Wheel 50 feet with 2 turns (QC: 9 Type: N/A Wheel 150 feet: 9 Type: N/A PT Plan Problem List Problem List: Activity Tolerance, Functional Strength, Safety, Balance, Gait, Transfer, Bed Mobility, ROM Treatment/Plan Treatment Plan: Continue Plan of Care Treatment Plan: Bed Mobility, Concurrent Therapy, Education, Functional Activity [place], Functional Strength, Group Therapy, Gait, Safety, Therapeutic Exercise, Transfers Treatment Duration: Apr 30, 2023 Frequency: At least 5 of 7 days/Wk (IRF) Estimated Hrs Per Day: 1.5 hours per day Patient and/or Family Agrees t: Yes Safety Risks/Education Patient Education: Transfer Techniques, Correct Positioning, Safety Issues Teaching Recipient: Patient Teaching Methods: Demonstration, Discussion Response to Teaching: Verbalize Understanding, Return Demonstration, Reinforcement Needed Discharge Recommendations Therapy Discharge Recommendati: Home & Family Equpiment Recommendations-D/C: None Discharge Status/Home Program Cont per POC Barriers to Progress Proximal/core weakness; endurance Target Placement Home with family Time Time In: 1614 Time Out: 1652 DATE: Apr 16, 2023 Total Billed Treatment Time: 38 Total Billed Treatment 38 min total co-tx from [id number] 1 visit FA x 2 FAM WYATT PT Apr 16, 2023 17:55
[2023-04-16 20:15] VITALS: BP 120/60
[2023-04-16] MEDS: OXYBUTYNIN 5 MG TABLET PO SCH (20:58)
[2023-04-16] MEDS: inSUlin DETERMIR 1 UNIT/0.01 ML (CHARGE PER UNIT) SQ SCH (20:58)
[2023-04-16] MEDS: carvediloL 12.5 MG TABLET PO SCH (20:58)
[2023-04-16] MEDS: DOCUSATE SODIUM 100 MG CAPSULE PO SCH (21:00)
[2023-04-16] MEDS: SENNA W/DOCUSATE TABLET PO SCH (21:00)
[2023-04-16] MEDS: SENNOSIDES 8.6 MG (SENOKOT) TAB PO SCH (21:00)
[2023-04-16] MEDS ORDERED: DOCUSATE SODIUM 100 MG CAPSULE PO SCH (21:00)
[2023-04-17] MEDS: ACETAMINOPHEN 325 MG TABLET PO PRN ×2 (00:56→06:50)
--- NOTE | 2023-04-17 05:19 | Individualized Plan of Care ---
Individualized Plan of Care Rehab Nursing IPOC Order Admission Date Apr 16, 2023 at 13:50 Current Orders Orders Admission Arrival Bed Request (04/16/23 13:54) Admission Order(Inpt,Obs,Sdc) (04/16/23 14:08) Vital Signs: Per Unit Policy ( 08,16,00 (04/16/23 14:08) Neftali Platt 09,21 (04/16/23 14:08) Sequential Compression Device [id number] (04/16/23 14:08) Microchip Specialist-Inpt Rehab Con (04/16/23 14:08) Rehab Nursing Orders-Ipoc (04/16/23 14:08) Physical Therapy Rehab Orders (04/16/23 14:08) Occupational Therapy Rehab Ord (04/16/23 14:08) Speech Therapy Rehab Orders (04/16/23 14:08) Cbc With Automated Diff (04/17/23 06:00) Comprehensive Metabolic Panel (04/17/23 06:00) Precautions (Aru) (04/16/23 14:08) Weekly Weight WEEK (04/16/23 14:08) Rehab-Intensity Of Therapy (04/16/23 14:08) Initiate Admission Nursing Pro .admission (04/16/23 14:08) Alprazolam Tablet (Alprazolam Tablet) (04/16/23 14:15) Calcium Carbonate Chew Tablet (Calcium C (04/16/23 14:15) Diphenhydramine Tablet (Diphenhydramine (04/16/23 14:15) Docusate Sodium Capsule (Docusate Sodium (04/16/23 21:00) Docusate Sodium Capsule (Docusate Sodium (04/16/23 14:15) Bisacodyl Suppository (Bisacodyl Supposi (04/16/23 14:15) Lactulose Oral Solution (Enulose Oral So (04/16/23 14:15) Na Phos/Na Biphos Adult Enema (Na Phos/N (04/16/23 14:15) Guaifenesin/Codeine Syrup (Guaifenesin/C (04/16/23 14:15) Loperamide Capsule (Loperamide Capsule) (04/16/23 14:15) Melatonin Tablet (Melatonin Tablet) (04/16/23 14:15) Polyethylene Glycol Powder Pkt (Miralax (04/16/23 21:00) Ondansetron Oral Dissolve Tab (Zofran (04/16/23 14:15) Senna S Tablet (Senokot S Tablet) (04/16/23 21:00) Acetaminophen Tablet (Acetaminophen Ta (04/16/23 14:15) Initiate Admission Nursing Pro .admission (04/16/23 14:08) Code/Resuscitation (04/16/23 14:27) Oxygen-Administer 19 (04/16/23 14:27) Sodium 2g (2000 Mg) (04/16/23 Lunch) Albuterol Pre-Mix Nebs (Rt) (Albuterol (04/16/23 14:30) Amiodarone Tablet (Amiodarone Tablet) (04/17/23 09:00) Aspirin Chewable Tablet (Aspirin Chewabl (04/17/23 09:00) Docusate Sodium Capsule (Docusate Sodium (04/16/23 21:00) Bisacodyl Suppository (Bisacodyl Supposi (04/16/23 14:30) Lactulose Oral Solution (Enulose Oral So (04/16/23 14:30) Furosemide Tablet (Furosemide Tablet) (04/17/23 09:00) Isosorbide Mononitrate Tablet (Isosorbid (04/17/23 09:00) Levothyroxine Tablet (Levothyroxine Tabl (04/17/23 06:30) Loratadine Tablet (Loratadine Tablet) (04/17/23 09:00) Losartan Tablet (Losartan Tablet) (04/17/23 09:00) Melatonin Tablet (Melatonin Tablet) (04/16/23 14:30) Milk Of Magnesia Oral Susp (Milk Of Magn (04/16/23 14:30) Polyethylene Glycol Powder Pkt (Miralax (04/16/23 14:30) Antacid Suspension (Antacid Suspension (04/16/23 14:30) Oxybutynin Tablet (Ditropan Tablet) (04/16/23 21:00) Pantoprazole Tablet (Protonix Tablet) (04/17/23 09:00) Sennosides Tablet (Senokot Tablet) (04/16/23 21:00) Spironolactone Tablet (Aldactone Tablet) (04/17/23 09:00) Calcium Carbonate Chew Tablet (Calcium C (04/16/23 14:30) Acetaminophen Tablet (Acetaminophen Ta (04/16/23 14:30) Ondansetron Injection (Zofran Injectio (04/16/23 14:30) Ondansetron Oral Dissolve Tab (Zofran (04/16/23 14:30) Carvedilol Tablet (Carvedilol Tablet) (04/16/23 21:00) Insulin Aspart (Per Unit) (Insulin Aspar (04/16/23 16:00) Insulin Determir (Per Unit) (Insulin Det (04/16/23 21:00) Consult Cardiology (04/16/23 14:27) Svn Small Volume Nebulizer (04/16/23 14:27) Accucheck Achs ACHS (04/16/23 14:27) Insulin Aspart (Per Unit) (Insulin Aspar (04/16/23 16:00) Patient Visit (04/16/23 ) Pt Eval Moderate Complexity (04/16/23 ) Patient Visit (04/16/23 ) Patient Visit (04/16/23 ) Functional Activities, Ea 15 (04/16/23 ) Manual Differential (04/17/23 08:38) Mat Initiate Protocol (04/17/23 08:55) Oxygen Delivery Set Up (04/17/23 08:55) Nystatin Ointment (Mycostatin Ointment) (04/17/23 21:00) Ivory Linens Only (04/17/23 11:53) Patient Visit (04/17/23 ) Gait Training, Ea 15 Min (04/17/23 ) Functional Activities, Ea 15 (04/17/23 ) Exercise Therap, Ea 15 Min (04/17/23 ) Patient Visit (04/17/23 ) Sodium Chloride Flush (Catheter Flush Sy (04/17/23 22:00) Enoxaparin Injection (Enoxaparin Injecti (04/18/23 09:00) Iron Test (Fe) (04/18/23 05:53) Vitamin B 12 (04/18/23 05:53) Insulin Determir (Per Unit) (Insulin Det (04/18/23 09:00) Rehab Nursing Orders: Ongoing Assess. of Function Status, Bladder Management, Bladder Scan, Bladder Training, Bowel Management, Bowel Training, Disease Management & Educaiton, DVT Prophylaxis, Fall Prevention, Fluid/Electrolyte/Nutrition Mgmt, Infection Prevention, Medication Management & Education, Management of Risks & Complications, Management of Skin Intergrity, Nutrition Management, Pain Management, Patient/Family Support, Safety Management Intensity of Therapy to be met Patient to be seen: Min.3h per day/5 of 7d PT IPOC Problem List: Activity Tolerance, Functional Strength, Safety, Balance, Gait, Transfer, Bed Mobility, ROM Treatment Plan: Continue Plan of Care Bed Mobility, Concurrent Therapy, Education, Functional Activity Timothy, Functional Strength, Group Therapy, Gait, Safety, Therapeutic Exercise, Transfers Treatment Duration: Apr 30, 2023 Frequency: At least 5 of 7 days/Wk (IRF) Estimated Hrs Per Day: 1.5 hours per day OT IPOC Problems: Decreased Activ Tolerance, Decreased UE Strength, Impaired Funct Balance, Impaired Self-Care Skills OT Treatment, Training and Edu: Yes Plan of Care: ADL Retraining, Concurrent Therapy, Functional Mobility, Group Exercise/Act as Ind, Visual/Perceptual Retrain Treatment Duration: Apr 22, 2023 Frequency: Modified Program (IRF) (75 [id number]) Estimated Hrs Per Day: Other (75 [id number]) ST IPOC Speech Therapy Treatment Plan: Discontinue ST Treatment Duration: Apr 17, 2023 Frequency: Modified Program (IRF) Estimated Hrs Per Day: Other Microchip Specialist/Case Mgmt Microchip Specialist/Case Managemen: Discharge Planning Dietitian/Employee Relation Manager Dietitian/Employee Relation Manager to monitor nutritional status and make changes and/or recommendations as needed and work with speech pathology on dietary upgrades as the occur. Physician IPOC Medical Issues being managed closely and that require the 24 hour availability of a physician: Recent CHF will require close monitoring of O2 and work on weaning supplemental O2 while Cardiology closely monitors cardiac issues which places her at high risk for resp failure Medical Issues: Bowel/Bladder Function, DVT Prophylaxis, Falls Precautions, Fluid/Electrolyte/Nutrition Balance, Infection Protection, Pain Management Brief Synthesis of Preadmission Screen, Post-Admission Evaluation, and Therapy Evaluations: PT OT will require close monitoring during stamina building with increased ambulation with use of AD and increase independence in ADL's Medical Prognosis: Good Anticipated Length of Stay: 7 days MICKEY BLOUNT DO Apr 17, 2023 05:19
--- NOTE | 2023-04-17 05:19 | PM&R Progress Note ---
Subjective HPI/CC On Admission Date Seen by Provider: Apr 17, 2023 Time Seen by Provider: 12:00 Subjective/Events-last exam 04/17/2023: No major issues No pain Improved overall Off O2 currently at bedside Reviewed meds Lovenox 40mg only since h/o GIB no OAC for AF Review of Systems General: Fatigue, Malaise Pulmonary: Dyspnea Cardiovascular: Edema Objective Exam Vital Signs Vital Signs Date Time Temp Pulse Resp B/P (MAP) Pulse Ox O2 Delivery O2 Flow Rate FiO2 04/17/23 20:10 96 Room Air 04/17/23 19:50 36.2 79 18 148/68 (94) 04/17/23 08:48 21 04/17/23 08:46 0.00 Capillary Refill : General Appearance: No Apparent Distress, WD/WN, Chronically ill, Obese HEENT: PERRL/EOMI, Normal ENT Inspection, Pharynx Normal Neck: Full Range of Motion, Normal Inspection, Non Tender, Supple, Carotid Bruit Respiratory: Chest Non Tender, Lungs Clear, No Accessory Muscle Use, No Respiratory Distress, Decreased Breath Sounds Cardiovascular: Regular Rate, Rhythm, No Gallop, No JVD, No Murmur, Normal Peripheral Pulses Gastrointestinal: Normal Bowel Sounds, No Organomegaly, No Pulsatile Mass, Non Tender, Soft Back: Normal Inspection, No CVA Tenderness, No Vertebral Tenderness Extremity: Normal Capillary Refill, Normal Inspection, Normal Range of Motion, Non Tender, No Calf Tenderness, No Pedal Edema Neurologic/Psychiatric: Alert, Oriented x3, Normal Mood/Affect, 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 FIM Transfers Therapy Code Descriptions/Definitions Functional [place] Measure: 0=Not Assessed/NA 4=Minimal Assistance 1=Total Assistance 5=Supervision or Setup 2=Maximal Assistance 6=Modified [place] 3=Moderate Assistance 7=Complete IndependenceSCALE: Activities may be completed with or without assistive devices. 9-Ozxsvccnvr-mwuoxpr completes the activity by him/herself with no assistance from a helper. 5-Set-up or Clean-up Assistance-helper sets up or cleans up; patient completes activity. [place] assists only prior to or following the activity. 4-Supervision or Touching Assistance-helper provides verbal cues and/or yrn tegan/steadying and/or contact guard assistance as patient completes activity. Assistance may be provided throughout the activity or intermittently. 3-Partial/Moderate Assistance-helper does LESS THAN HALF the effort. [place] lifts, holds or supports trunk or limbs, but provides less than half the effort. 2-Substantial/Maximal Assistance-helper does MORE THAN HALF the effort. [place] lifts or holds trunk or limbs and provides more than half the effort. 8-Bitjuxmjq-xasmks does ALL the effort. Patient does none of the effort to complete the activity. Or, the assistance of 2 or more helpers is required for the patient to complete the activity. If activity was not attempted, code reason: 7-Patient Refused. 9-Not Applicable-not attempted and the patient did not perform the activity b efore the current illness, exacerbation or injury. 10-Not Attempted due to Environmental Limitations-(lack of equipment, weather restraints, etc.). 88-Not Attempted due to Medical Conditions or Safety Concerns. Roll Left to Right (QC): 3 (Min A ) Sit to Lying (QC): 3 (Min A ) Sit to Stand (QC): 4 Chair/Ymc-sd-Zbuhv Xfer(QC): 4 (CGA ) Car Transfer (QC): 4 (CGA ) Gait Training Does the Patient Walk?: Yes Walk 10 feet (QC): 4 (CGA ) Walk 50 ft with 2 Turns(QC): 4 (CGA ) Walk 150 ft (QC): 4 (CGA ) Walking 10ft/uneven surface-QC: 4 (CGA ) Gait Assistive Device: FWW Wheelchair Training Does the Pt Use a Wheelchair?: No Wheel 50 ft with 2 turns (QC): 9 Wheel 150 ft (QC): 9 Type of Wheelchair: N/A Stair Training #of Steps: 4 1 Step (curb) (QC): 4 (CGA) 4 Steps (QC): 4 (CGA ) 12 Steps (QC): 9 Balance Picking up an Object (QC): 4 (CGA ) ADL-Treatment Eating (QC): 6 Oral Hygiene (QC): 5 Shower/Bathe Self (QC): 88 Upper Body Dressing (QC): 5 Lower Body Dressing (QC): 3 On/Off Footwear (QC): 7 (declined, socks already on, patient reports she does not wear socks at home.) Toileting Hygiene (QC): 7 (Patient declined use of tiolet) Assessment/Plan Assessment and Plan Assess & Plan/Chief Complaint Assessment: 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 h/o GIB Anemia of chronic disease Leukopenia Plan: Wean O2 slowly PT OT Home meds Monitor volume overload 04/17/2023: Monitor hgb Monitor BP Wean O2 (1) Myopathy (2) Obesity Status: Chronic (3) T2DM (type 2 diabetes mellitus) Status: Acute (4) HTN (hypertension) Status: Acute (5) Respiratory failure Status: Acute (6) Pulmonary edema Status: Acute (7) History of diverticulosis Status: Acute (8) GERD (gastroesophageal reflux disease) Status: Chronic (9) Lymphoma MICKEY BLOUNT DO Apr 17, 2023 05:19
[2023-04-17 06:25] LABS: BILIRUBIN,TOTAL 0.4 MG/DL (0.1-1.0); CALCIUM 8.3 MG/DL (8.5-10.1); CREATININE SERUM 1.3 MG/DL (0.60-1.30); POTASSIUM 4.1 MMOL/L (3.6-5.0); TOTAL PROTEIN 5.1 GM/DL (6.4-8.2)
[2023-04-17] MEDS: inSUlin ASPART 1 UNIT/0.01 ML (PER UNIT) SC SCH ×4 (06:40→20:21)
[2023-04-17] MEDS: LEVOTHYROXINE 75 MCG TABLET PO SCH (06:49)
--- NOTE | 2023-04-17 07:31 | Occupational Ther Daily Note ---
OT Current Status-Daily Note Subjective Pt alert, sitting in recliner. Pt agrees to therapy. No c/o pain. Monitored O2 throughout session-95% and above with 2L O2. Pt c/o headache, nrsg aware and brought pain meds. Mental Status/Objective Patient Orientation: Person, Place, Time, Situation Attachments: IV ADL-Treatment Pt agrees to shower. Pt ambulates to bathroom using FWW with SBA. SBA for s hower transfer using FWW and grabbars. Pt sits 100% of the time for shower on shower chair using grabbars, hand held shower. Pt requires assistance to reach feet to cleanse/dry. Pt will need LH sponge and AE for footwear. SBA for UBD. SBA for LBD. Max A for footwear. Pt demonstrates ability to stand at sink to complete oral care with SBA, will need to sit due to low activity tolerance. Set up with meal due to vision, pt requires assist to identify small packages and containers on tray. After session, pt sitting in recliner with call light/phone reach. All needs met in room. Therapy Code Descriptions/Definitions Functional [place] Measure: 0=Not Assessed/NA 4=Minimal Assistance 1=Total Assistance 5=Supervision or Setup 2=Maximal Assistance 6=Modified [place] 3=Moderate Assistance 7=Complete IndependenceSCALE: Activities may be completed with or without assistive devices. 6-Ycnptedtvz-urilhxp completes the activity by him/herself with no assistance from a helper. 5-Set-up or Clean-up Assistance-helper sets up or cleans up; patient completes activity. [place] assists only prior to or following the activity. 4-Supervision or Touching Assistance-helper provides verbal cues and/or touching/steadying and/or contact guard assistance as patient completes activity. Assistance may be provided throughout the activity or intermittently. 3-Partial/Moderate Assistance-helper does LESS THAN HALF the effort. [place] lifts, holds or supports trunk or limbs, but provides less than half the effort. 2-Substantial/Maximal Assistance-helper does MORE THAN HALF the effort. [place] lifts or holds trunk or limbs and provides more than half the effort. 3-Dktmvlioc-whznzb does ALL the effort. Patient does none of the effort to complete the activity. Or, the assistance of 2 or more helpers is required for the patient to complete the activity. If activity was not attempted, code reason: 7-Patient Refused. 9-Not Applicable-not attempted and the patient did not perform the activity before the current illness, exacerbation or injury. 10-Not Attempted due to Environmental Limitations-(lack of equipment, weather restraints, etc.). 88-Not Attempted due to Medical Conditions or Safety Concerns. 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 2=Patient will verbalize/demonstrate understanding of assistive devices/modifications for ADL. 3=Patient will improve strength/tolerance for activity to enable patient to perform ADL's. OT Education/Plan Problem List/Assessment Assessment: Decreased Activ Tolerance, Impaired Self-Care Skills Discharge Recommendations Plan/Recommendations: Continue POC Treatment Plan/Plan of Care Patient would benefit from OT for education, treatment and training to promote independence in ADL's, mobility, safety and/or upper extremity function for ADL's. Plan of Care: ADL Retraining, Concurrent Therapy, Functional Mobility, Group Exercise/Act as Ind, Visual/Perceptual Retrain Treatment Duration: Apr 22, 2023 Frequency: Modified Program (IRF) (75 [id number]) Estimated Hrs Per Day: Other (75 [id number]) Agreement: Yes Rehab Potential: Good Time Start Time: 06:45 Stop Time: 07:45 DATE: Apr 17, 2023 Total Time Billed (hr/min): 60 Billed Treatment Time 1 visit-ADL 4 (60 min) YAMEL HUNG Apr 17, 2023 07:31
[2023-04-17 07:58] VITALS: BP 134/61
[2023-04-17] MEDS: LOSARTAN 25 MG TABLET PO SCH (08:21)
[2023-04-17] MEDS: SPIRONOLACTONE 25 MG (ALDACTONE) TAB PO SCH (08:21)
[2023-04-17] MEDS: FUROSEMIDE 40 MG TABLET PO SCH (08:21)
[2023-04-17] MEDS: OXYBUTYNIN 5 MG TABLET PO SCH ×2 (08:21→20:14)
[2023-04-17] MEDS: LORATADINE 10 MG TABLET PO SCH (08:21)
[2023-04-17] MEDS: carvediloL 12.5 MG TABLET PO SCH ×2 (08:22→20:14)
[2023-04-17] MEDS: SENNA W/DOCUSATE TABLET PO SCH ×2 (08:22→21:00)
[2023-04-17] MEDS: ISOSORBIDE MONONITRATE 30 MG TABLET PO SCH (08:22)
[2023-04-17] MEDS: SENNOSIDES 8.6 MG (SENOKOT) TAB PO SCH ×2 (08:22→21:00)
[2023-04-17] MEDS: AMIODARONE 200 MG TABLET PO SCH (08:22)
[2023-04-17] MEDS: DOCUSATE SODIUM 100 MG CAPSULE PO SCH ×2 (08:22→21:00)
[2023-04-17] MEDS: PANTOPRAZOLE 20 MG TABLET PO SCH (08:22)
[2023-04-17] MEDS: ASPIRIN 81 MG CHEWABLE TABLET PO SCH (08:22)
[2023-04-17] MEDS: inSUlin DETERMIR 1 UNIT/0.01 ML (CHARGE PER UNIT) SQ SCH ×2 (08:24→20:21)
--- NOTE | 2023-04-17 08:28 | Progress Note - Cardiology ---
Cardiology SOAP Progress Note Objective: I&O/Vital Signs 04/17/23 04/17/23 04/17/23 04/17/23 07:45 07:57 07:58 08:30 Temp 35.9 Pulse 59 62 Resp 18 B/P (MAP) 134/61 (85) Pulse Ox 98 97 96 O2 Delivery Nasal Cannula Room Air Nasal Cannula Room Air O2 Flow Rate 2.00 0.00 2.00 04/17/23 04/17/23 04/17/23 08:46 08:48 09:11 Temp 35.9 Pulse 65 Pulse Ox 94 94 96 O2 Delivery Room Air Room Air O2 Flow Rate 0.00 FiO2 21 04/17/23 00:00 Intake Total 400 ml Output Total 0 ml Balance 400 ml Weight (Pounds): 213 Weight (Ounces): 0.0 Weight (Calculated Kilograms): 96.722518 Constitutional: AAO x 3, well-developed, well-nourished Respiratory: No accessory muscle use, No respiratory distress; chest expansion is symmetric, chest is bilaterally symmetric Cardiovascular: regular rate-rhythm; No JVD; S1 and S2 Gastrointestional: soft, audible bowel sounds Neurologic/Psychiatric: other (moves all extremities) Skin: other (petechial rash to ankles bilat) Results/Procedures: Labs Laboratory Tests 04/16/23 20:44: Glucometer 231H 04/17/23 05:54: Sodium Level 138, Potassium Level 4.1, Chloride Level 103, Carbon Dioxide Level 29, Anion Gap 6, Blood Urea Nitrogen 29H, Creatinine 1.30, Estimat Glomerular Filtration Rate 41, BUN/Creatinine Ratio 22, Glucose Level 134H, Calcium Level 8.3L, Corrected Calcium 9.1, Total Bilirubin 0.4, Aspartate Amino Transf (AST/SGOT) 15, Alanine Aminotransferase (ALT/SGPT) 16, Alkaline Phosphatase 72, Total Protein 5.1L, Albumin 3.0L 04/17/23 08:38: White Blood Count 2.9L, Red Blood Count 3.44L, Hemoglobin 9.3L, Hematocrit 30L, Mean Corpuscular Volume 88, Mean Corpuscular Hemoglobin 27, Mean Corpuscular Hemoglobin Concent 31L, Red Cell Distribution Width 21.2H, Platelet Count 139, Mean Platelet Volume 9.5, Immature Granulocyte % (Auto) 1, Neutrophils (%) (Auto) 62, Lymphocytes (%) (Auto) 16, Monocytes (%) (Auto) 9, Eosinophils (%) (Auto) 12H, Basophils (%) (Auto) 1, Neutrophils # (Auto) 1.8, Lymphocytes # (Auto) 0.5L, Monocytes # (Auto) 0.3, Eosinophils # (Auto) 0.4H, Basophils # (Auto) 0.0, Immature Granulocyte # (Auto) 0.0, Neutrophils % (Manual) 72, Lymphocytes % (Manual) 14, Monocytes % (Manual) 7, Eosinophils % (Manual) 6, Basophils % (Manual) 1, Percent Immature Platelet Fraction 1.7, Polychromasia SLIGHT, Anisocytosis MARKED 04/17/23 10:51: Glucometer 221H A/P: Assessment: Sepsis - resolved Respiratory distress - probably related to ac diastolic CHF, improved with IV diuretics - Echo on 04/13/23: Mild conc LVH. LVEF 50-55%. Moderately dilated LA. Mild MAC. Trivial AI. PASP 40-45 mmHg H/O GIB with anemia, multiple blood transfusions - management is by Andrei (pt denies any recent bleeding) - Surgical service (Dr Forbes) had advised holding off on aspirin CAD, inoperable - Cardiac cath of 12-02-22: Left main coronary artery: Ok; Left anterior descending coronary artery: Long, up to 90% in ostial and prox LAD; Left circumflex coronary artery: Long, up to 80 in prox portion of a large OM, and 80% distal left circumflex; Right coronary artery: Dominant with up to 80 distal (but prox to PDA and PL). LVEDP 20 mmHg. LVEF 60% - referred to [facility] for eval for CABG - CV Surg felt coronaries to be too small for bypass, referred for high-risk intervention (Dr Rodriguez) who has advised medical therapy - Evaluated by Dr. Rodriguez at [facility], per his note of 02-26-23, she is not suitable candidate for high risk percutaneous intervention - he advises c ontinued medical tx PAF - first dx on 02-12-[address] Rodriguez - Cardioverted by Dr. 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 Torres Plan: Plan: Very complex management due to multiple co-morbidities that include advanced but inoperable CAD Continue current cardiac regimen Monitor lab ERIKA MEDINA Apr 17, 2023 08:28
[2023-04-17 08:45] LABS: HEMOGLOBIN 9.3 g/dL (11.5-16.0)
[2023-04-17 08:47] LABS: BASOPHILS % (AUTO) 1 % (0-10); EOSINOPHILS # (AUTO) 0.4 10^3/uL (0.0-0.3); EOSINOPHILS % (AUTO) 12 % (0-10); HEMATOCRIT 30 % (35-52); LYMPHOCYTES # (AUTO) 0.5 10^3/uL (1.0-4.0); LYMPHOCYTES % (AUTO) 16 % (12-44); MEAN CORPUSCULAR HEMOGLOBIN 27 pg (25-34); MEAN CORPUSCULAR HGB CONC 31 g/dL (32-36); MEAN CORPUSCULAR VOLUME 88 fL (80-99); MEAN PLATELET VOLUME 9.5 fL (9.0-12.2); MONOCYTES # (AUTO) 0.3 10^3/uL (0.0-1.0); MONOCYTES % (AUTO) 9 % (0-12); NEUTROPHILS # (AUTO) 1.8 10^3/uL (1.8-7.8); NEUTROPHILS % (AUTO) 62 % (42-75); PLATELET COUNT 139 10^3/uL (130-400); WHITE BLOOD COUNT 2.9 10^3/uL (4.3-11.0)
[2023-04-17 08:48] VITALS: BP 134/61
[2023-04-17 09:25] LABS: ANISOCYTOSIS MARKED; BASOPHILS % (MANUAL) 1 %; EOSINOPHILS % (MANUAL) 6 %; LYMPHOCYTES % (MANUAL) 14 %; MONOCYTES % (MANUAL) 7 %; NEUTROPHILS % (MANUAL) 72 %; POLYCHROMASIA SLIGHT
--- NOTE | 2023-04-17 11:57 | Progress Note - Cardiology ---
Cardiology SOAP Progress Note Subjective: No cp or palp or syncope Exertional shortness of breath improving Gen weakness improving No focal weakness No n/v/d Objective: I&O/Vital Signs 04/17/23 04/17/23 04/17/23 04/17/23 07:45 07:57 07:58 08:30 Temp 35.9 Pulse 59 62 Resp 18 B/P (MAP) 134/61 (85) Pulse Ox 98 97 96 O2 Delivery Nasal Cannula Room Air Nasal Cannula Room Air O2 Flow Rate 2.00 0.00 2.00 04/17/23 04/17/23 04/17/23 08:46 08:48 09:11 Temp 35.9 Pulse 65 Pulse Ox 94 94 96 O2 Delivery Room Air Room Air O2 Flow Rate 0.00 FiO2 21 04/17/23 00:00 Intake Total 400 ml Output Total 0 ml Balance 400 ml Weight (Pounds): 213 Weight (Ounces): 0.0 Weight (Calculated Kilograms): 96.780518 Constitutional: AAO x 3, well-developed, well-nourished Respiratory: No accessory muscle use, No respiratory distress; chest expansion is symmetric, chest is bilaterally symmetric Cardiovascular: regular rate-rhythm; No JVD; S1 and S2 Gastrointestional: soft, audible bowel sounds Neurologic/Psychiatric: other (moves all extremities) Skin: other (petechial rash to ankles bilat) Results/Procedures: Labs Laboratory Tests 04/16/23 20:44: Glucometer 231H 04/17/23 05:54: Sodium Level 138, Potassium Level 4.1, Chloride Level 103, Carbon Dioxide Level 29, Anion Gap 6, Blood Urea Nitrogen 29H, Creatinine 1.30, Estimat Glomerular Filtration Rate 41, BUN/Creatinine Ratio 22, Glucose Level 134H, Calcium Level 8.3L, Corrected Calcium 9.1, Total Bilirubin 0.4, Aspartate Amino Transf (AST/SGOT) 15, Alanine Aminotransferase (ALT/SGPT) 16, Alkaline Phosphatase 72, Total Protein 5.1L, Albumin 3.0L 04/17/23 08:38: White Blood Count 2.9L, Red Blood Count 3.44L, Hemoglobin 9.3L, Hematocrit 30L, Mean Corpuscular Volume 88, Mean Corpuscular Hemoglobin 27, Mean Corpuscular Hemoglobin Concent 31L, Red Cell Distribution Width 21.2H, Platelet Count 139, Mean Platelet Volume 9.5, Immature Granulocyte % (Auto) 1, Neutrophils (%) (Aut o) 62, Lymphocytes (%) (Auto) 16, Monocytes (%) (Auto) 9, Eosinophils (%) (Auto) 12H, Basophils (%) (Auto) 1, Neutrophils # (Auto) 1.8, Lymphocytes # (Auto) 0.5L , Monocytes # (Auto) 0.3, Eosinophils # (Auto) 0.4H, Basophils # (Auto) 0.0, Immature Granulocyte # (Auto) 0.0, Neutrophils % (Manual) 72, Lymphocytes % (Manual) 14, Monocytes % (Manual) 7, Eosinophils % (Manual) 6, Basophils % (Manual) 1, Percent Immature Platelet Fraction 1.7, Polychromasia SLIGHT, Anisocytosis MARKED 04/17/23 10:51: Glucometer 221H Laboratory Tests 04/17/23 05:54 04/17/23 08:38 A/P: Assessment: Mild leucopenia - managed by Dr Doran Ac on ch diastolic CHF, improved with diuretics - Echo on 04/13/23: Mild conc LVH. LVEF 50-55%. Moderately dilated LA. Mild MAC. Trivial AI. PASP 40-45 mmHg H/O GIB with anemia, multiple blood transfusions - management is by Andrei (pt denies any recent bleeding) - Surgical service (Dr Forbes) had advised holding off on aspirin CAD, inoperable - Cardiac cath of 12-02-22: Left main coronary artery: Ok; Left anterior descending coronary artery: Long, up to 90% in ostial and prox LAD; Left circumf soledad coronary artery: Long, up to 80 in prox portion of a large OM, and 80% distal left circumflex; Right coronary artery: Dominant with up to 80 distal (but prox to PDA and PL). LVEDP 20 mmHg. LVEF 60% - referred to [facility] for eval for CABG - CV Surg felt coronaries to be too small for bypass, referred for high-risk intervention (Dr Rodriguez) who has advised medical therapy - Evaluated by Dr. Rodriguez at [facility], per his note of 02-26-23, she is not suitable candidate for high risk percutaneous intervention - he advises continued medical tx PAF - first dx on 02-12-[address] Rodriguez - Cardioverted by Dr. Rodriguez on 02-18-23 - Not suitable for finish opener OAC d/t h/o freq GIB that has required multiple transfusions in the past Obesity with obesity-hypoventilation syndrome DM II Hyperlipidemia - treated with PCSK-9 inhib Hypertension Non-Hodgkin's Lymphoma - following with Dr. Torres Plan: Very complex management due to multiple co-morbidities that include advanced but inoperable CAD Continue current cardiac regimen Monitor labs MAXIM WRIGHT MD FACP FAC CCDS Apr 17, 2023 11:57
--- NOTE | 2023-04-17 12:42 | Physical Therapy Daily Note ---
PT Daily Note-Current Subjective Pt found in bathroom /c RN present upon entry. Agreed to PT. RN reports pt was recently taken off of supplemental O2 and O2 should be monitored throughout visit. Pt reports no pain throughout visit. Pain Section J - Health Conditions 1. Rarely or not at all 2. Occasionally 3. Frequently 4. Almost constantly 8. Unable to answer Pain Effect on Sleep: 1 Pain Interference with Therapy: 1 Pain Interference w/Day-to-Day: 1 Mental Status Patient Orientation: Person, Place Transfers SCALE: Activities may be completed with or without assistive devices. 3-Nqanveradb-loxtgmh completes the activity by him/herself with no assistance from a helper. 5-Set-up or Clean-up Assistance-helper sets up or cleans up; patient completes activity. [place] assists only prior to or following the activity. 4-Supervision or Touching Assistance-helper provides verbal cues and/or touching/steadying and/or contact guard assistance as patient completes activity. Assistance may be provided throughout the activity or intermittently. 3-Partial/Moderate Assistance-helper does LESS THAN HALF the effort. [place] lifts, holds or supports trunk or limbs, but provides less than half the effort. 2-Substantial/Maximal Assistance-helper does MORE THAN HALF the effort. [place] lifts or holds trunk or limbs and provides more than half the effort. 2-Fffuxtswr-jneqbz does ALL the effort. Patient does none of the effort to complete the activity. Or, the assistance of 2 or more helpers is required for the patient to complete the activity. If activity was not attempted, code reason: 7-Patient Refused. 9-Not Applicable-not attempted and the patient did not perform the activity before the current illness, exacerbation or injury. 10-Not Attempted due to Environmental Limitations-(lack of equipment, weather restraints, etc.). 88-Not Attempted due to Medical Conditions or Safety Concerns. Sit to Stand (QC): 4 Pt SBA /c sit to stand transfers for safety due to strength and balance deficits. Sit to stands performed 10x from chair /c armrests. Weight Bearing Right Lower Extremity: Right Full Weight Bearing Left Lower Extremity: Left Full Weight Bearing Gait Training Does the Patient Walk?: Yes Distance: 150, 50, 40 Walk 10 feet (QC): 4 Walk 50 ft with 2 Turns(QC): 4 Walk 150 ft (QC): 4 Gait Persons Needed: 1 Gait Assistive Device: FWW Pt ambulates /c use of FWW up to 150 feet before requiring a seated rest break. Required CGA for safety due to strength and balance deficits. Demonstrates short step lengths /c limited heel/toe pattern. Fatigue reported upon completion. Pt ambulated 150, 50, 40 feet. O2 sat measured at 96% after 150 feet of ambulation. Exercises NuStep Minutes: 10 NuStep Workload: 2 Treatments Standing Therapeutic Exercises (B): Mini squats x 10 Side stepping x 2 trips at // Marching x 2 trips at // (O2 sats measured at 95%) Hamstring curls x 10 Retro-ambulation x 2 trips at // Assessment Current Status: Good Progress Pt displays decent muscle strength /c limited endurance while ambulating and performing therapeutic exercises. Pt able to ambulate up to 150 feet /c use of FWW before requiring a seated rest break. Required occasional seated rest breaks to complete exercises. Increased fatigue reported throughout visit. O2 saturation measured at 96% post-gait training and 95% during exercise. Continue to progress pt per POC. PT [facility] Goals Morning Nanny Goals PT Morning Nanny Goals Time Frame: Apr 30, 2023 Roll Left & Right (QC): 6 (Pt will be Mod I with functional mobility to safely return home with family ) Sit to Lying (QC): 6 (Pt will be Mod I with functional mobility to safely return home with family ) Lying-Sitting on Side/Bed(QC): 6 (Pt will be Mod I with functional mobility to safely return home with family ) Sit to Stand (QC): 6 (Pt will be Mod I with functional mobility to safely return home with family ) Chair/Zjc-zl-Sywwx Xfer(QC): 6 (Pt will be Mod I with functional mobility to safely return home with family ) Toilet Transfer (QC): 6 (Pt will be Mod I with functional mobility to safely return home with family ) Car Transfer (QC): 6 (Pt will be Mod I with functional mobility to safely return home with family ) Does the Patient Walk: Yes Walk 10 feet (QC): 6 (Pt will be Mod I with functional mobility to safely return home with family ) Walk 50ft with 2 Turns (QC): 6 (Pt will be Mod I with functional mobility to safely return home with family ) Walk 150 ft (QC): 6 (Pt will be Mod I with functional mobility to safely return home with family ) Walking 10ft on Uneven Surface: 6 (Pt will be Mod I with functional mobility to safely return home with family ) 1 Step (curb) (QC): 6 (Pt will be Mod I with functional mobility to safely return home with family ) 4 Steps (QC): 6 (Pt will be Mod I with functional mobility to safely return home with family ) 12 Steps (QC): 9 Picking up an Object (QC): 6 (Pt will be Mod I with functional mobility to safely return home with family ) Does the Pt use WC or Scooter?: No Wheel 50 feet with 2 turns (QC: 9 Type: N/A Wheel 150 feet: 9 Type: N/A PT Plan Treatment/Plan Treatment Plan: Continue Plan of Care Treatment Plan: Bed Mobility, Concurrent Therapy, Education, Functional Activity Timothy, Functional Strength, Group Therapy, Gait, Safety, Therapeutic Exercise, Transfers Treatment Duration: Apr 30, 2023 Frequency: At least 5 of 7 days/Wk (IRF) Estimated Hrs Per Day: 1.5 hours per day Patient and/or Family Agrees t: Yes Time Time In: 0900 Time Out: 1000 DATE: Apr 17, 2023 Total Billed Treatment Time: 60 Total Billed Treatment 1 visit GT x 1 FA x 1 EX x 2 SONIA FUENTES RESEARCH AND DEVELOPMENT MANAGER Apr 17, 2023 12:42
--- NOTE | 2023-04-17 14:56 | Therapy Group Daily Note ---
Therapy Daily Group Note Patient Education Topic Home Safety, Exercises Exercises LE Seated Exercise, UE Exercise Session Ratio (pt:therapist): 7:2 Goal of Session: Home Safety Strategies, UE/LE Strengthing Goal Met for this Session: Yes Pt Benefit of Group: Contributions to Others, F/U Use of Strategies @Home, Increased Functional Safety, Increased Functional Strength, Improved Cognition, Recognition of Peers, Socialization Other/Notes Pt ambulated to [facility] for OT/PT group with Misael Ward PTA. Group consisted of introductions (name, place living, dx), socialization, B UE/LE exercises with HEP and education on safety devices for home environment in case of falls. Pt introduced self appropriately and actively listened to peers. Pt completed B UE/LE HEP with skilled instruction and modifications when needed. Pt's have HEP and medium resistance theraband for B UE given. Pt's acknowledged understanding of educational topic and gave personal stories that were appropriate to topic. After therapy, pt sitting in recliner with call light/phone in reach. All needs met in room. Start Time: 13:00 Stop Time: 14:15 Total Billed Treatment Time: 75 Total Billed Treatment 1-GRP YAMEL HUNG Apr 17, 2023 14:56
[2023-04-17 19:50] VITALS: BP 148/68
[2023-04-17] MEDS: NYSTATIN OINTMENT 30 GM TUBE TOP SCH (20:14)
[2023-04-17] MEDS: CATHETER FLUSH 10 ML SYR IVP SCH (22:00)
[2023-04-18] MEDS: CATHETER FLUSH 10 ML SYR IVP SCH ×3 (06:00→21:28)
[2023-04-18] MEDS: inSUlin ASPART 1 UNIT/0.01 ML (PER UNIT) SC SCH ×4 (06:30→21:28)
[2023-04-18] MEDS: ACETAMINOPHEN 325 MG TABLET PO PRN (06:37)
[2023-04-18] MEDS: LEVOTHYROXINE 75 MCG TABLET PO SCH (06:52)
--- NOTE | 2023-04-18 06:59 | PM&R Progress Note ---
Subjective HPI/CC On Admission Date Seen by Provider: Apr 18, 2023 Time Seen by Provider: 11:30 Subjective/Events-last exam 04/18/2023: Ayaka discussed Off O2 daytime IS ordered 91% this am Sleep study 05/11/23 Selvin rogel will be here today No incontinence Alevan on her buttock WILBERTO hose unable to be used so place on wide REJI wraps 1 person transfer now 04/17/2023: No major issues No pain Improved overall Off O2 currently at bedside Reviewed meds Lovenox 40mg only since h/o GIB no OAC for AF Review of Systems General: Fatigue, Malaise Pulmonary: Dyspnea Objective Exam Vital Signs Vital Signs Date Time Temp Pulse Resp B/P (MAP) Pulse Ox O2 Delivery O2 Flow Rate FiO2 04/18/23 09:58 67 18 94 Room Air 04/18/23 08:26 36.1 111/56 (74) 04/17/23 08:48 21 04/17/23 08:46 0.00 Capillary Refill : General Appearance: No Apparent Distress, WD/WN, Chronically ill, Obese HEENT: PERRL/EOMI, Normal ENT Inspection, Pharynx Normal Neck: Full Range of Motion, Normal Inspection, Non Tender, Supple, Carotid Bruit Respiratory: Chest Non Tender, Lungs Clear, No Accessory Muscle Use, No Respiratory Distress, Decreased Breath Sounds Cardiovascular: Regular Rate, Rhythm, No Gallop, No JVD, No Murmur, Normal Peripheral Pulses Gastrointestinal: Normal Bowel Sounds, No Organomegaly, No Pulsatile Mass, Non Tender, Soft Back: Normal Inspection, No CVA Tenderness, No Vertebral Tenderness Extremity: Normal Capillary Refill, Normal Inspection, Normal Range of Motion, Non Tender, No Calf Tenderness, No Pedal Edema Neurologic/Psychiatric: Alert, Oriented x3, Normal Mood/Affect, 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 FIM Transfers Therapy Code Descriptions/Definitions Functional Hughes Measure: 0=Not Assessed/NA 4=Minimal Assistance 1=Total Assistance 5=Supervision or Setup 2=Maximal Assistance 6=Modified Hughes 3=Moderate Assistance 7=Complete IndependenceSCALE: Activities may be completed with or without assistive devices. 6-Yzddivfddy-gerzgwp completes the activity by him/herself with no assistance from a helper. 5-Set-up or Clean-up Assistance-helper sets up or cleans up; patient completes activity. [place] assists only prior to or following the activity. 4-Supervision or Touching Assistance-helper provides verbal cues and/or touching/steadying and/or contact guard assistance as patient completes activity. Assistance may be provided throughout the activity or intermittently. 3-Partial/Moderate Assistance-helper does LESS THAN HALF the effort. [place] lifts, holds or supports trunk or limbs, but provides less than half the effort. 2-Substantial/Maximal Assistance-helper does MORE THAN HALF the effort. [place] lifts or holds trunk or limbs and provides more than half the effort. 3-Tskyasavl-twloef does ALL the effort. Patient does none of the effort to complete the activity. Or, the assistance of 2 or more helpers is required for the patient to complete the activity. If activity was not attempted, code reason: 7-Patient Refused. 9-Not Applicable-not attempted and the patient did not perform the activity before the current illness, exacerbation or injury. 10-Not Attempted due to Environmental Limitations-(lack of equipment, weather restraints, etc.). 88-Not Attempted due to Medical Conditions or Safety Concerns. Roll Left to Right (QC): 3 (Min A ) Sit to Lying (QC): 3 (Min A ) Sit to Stand (QC): 4 Chair/Npz-ne-Nqzup Xfer(QC): 4 (CGA ) Car Transfer (QC): 4 (CGA ) Gait Training Does the Patient Walk?: Yes Distance: 150, 50, 40 Walk 10 feet (QC): 4 Walk 50 ft with 2 Turns(QC): 4 Walk 150 ft (QC): 4 Walking 10ft/uneven surface-QC: 4 (CGA ) Gait Persons Needed: 1 Gait Assistive Device: FWW Wheelchair Training Does the Pt Use a Wheelchair?: No Wheel 50 ft with 2 turns (QC): 9 Wheel 150 ft (QC): 9 Type of Wheelchair: N/A Stair Training #of Steps: 4 1 Step (curb) (QC): 4 (CGA) 4 Steps (QC): 4 (CGA ) 12 Steps (QC): 9 Balance Picking up an Object (QC): 4 (CGA ) ADL-Treatment Eating (QC): 5 Oral Hygiene (QC): 4 Shower/Bathe Self (QC): 3 Upper Body Dressing (QC): 4 Lower Body Dressing (QC): 4 On/Off Footwear (QC): 2 Toileting Hygiene (QC): 4 (per nrsg) Toilet Transfer (QC): 4 (per nrsg) Assessment/Plan Assessment and Plan Assess & Plan/Chief Complaint Assessment: 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 h/o GIB Anemia of chronic disease Leukopenia Plan: Wean O2 slowly PT OT Home meds Monitor volume overload 04/17/2023: Monitor hgb Monitor BP Wean O2 04/18/2023: Wean O2 Needs night time O2 study before DC Needs sleep study (1) Myopathy (2) Obesity Status: Chronic (3) T2DM (type 2 diabetes mellitus) Status: Acute (4) HTN (hypertension) Status: Acute (5) Respiratory failure Status: Acute (6) Pulmonary edema Status: Acute (7) History of diverticulosis Status: Acute (8) GERD (gastroesophageal reflux disease) Status: Chronic (9) Lymphoma MICKEY BLOUNT DO Apr 18, 2023 06:59
[2023-04-18 08:26] VITALS: BP 111/56
[2023-04-18] MEDS: PANTOPRAZOLE 20 MG TABLET PO SCH (09:41)
[2023-04-18] MEDS: AMIODARONE 200 MG TABLET PO SCH (09:41)
[2023-04-18] MEDS: LOSARTAN 25 MG TABLET PO SCH (09:41)
[2023-04-18] MEDS: SPIRONOLACTONE 25 MG (ALDACTONE) TAB PO SCH (09:41)
[2023-04-18] MEDS: carvediloL 12.5 MG TABLET PO SCH ×2 (09:41→21:29)
[2023-04-18] MEDS: FUROSEMIDE 40 MG TABLET PO SCH (09:41)
[2023-04-18] MEDS: ISOSORBIDE MONONITRATE 30 MG TABLET PO SCH (09:41)
[2023-04-18] MEDS: LORATADINE 10 MG TABLET PO SCH (09:41)
[2023-04-18] MEDS: ASPIRIN 81 MG CHEWABLE TABLET PO SCH (09:41)
[2023-04-18] MEDS: OXYBUTYNIN 5 MG TABLET PO SCH ×2 (09:41→21:29)
[2023-04-18] MEDS: NYSTATIN OINTMENT 30 GM TUBE TOP SCH ×2 (09:42→21:30)
[2023-04-18] MEDS: ENOXAPARIN 40 MG/0.4 ML SYRINGE SC SCH ×2 (09:42→21:27)
[2023-04-18] MEDS: inSUlin DETERMIR 1 UNIT/0.01 ML (CHARGE PER UNIT) SQ SCH ×2 (09:44→21:28)
[2023-04-18] MEDS: SENNA W/DOCUSATE TABLET PO SCH ×2 (09:54→21:29)
[2023-04-18] MEDS: DOCUSATE SODIUM 100 MG CAPSULE PO SCH ×2 (09:54→21:29)
[2023-04-18] MEDS: SENNOSIDES 8.6 MG (SENOKOT) TAB PO SCH ×2 (09:54→21:29)
[2023-04-18 19:36] VITALS: BP 132/62
[2023-04-19] MEDS: CATHETER FLUSH 10 ML SYR IVP SCH ×3 (06:29→21:31)
[2023-04-19] MEDS: LEVOTHYROXINE 75 MCG TABLET PO SCH (06:29)
[2023-04-19] MEDS: inSUlin ASPART 1 UNIT/0.01 ML (PER UNIT) SC SCH ×4 (06:32→21:30)
--- NOTE | 2023-04-19 07:14 | PM&R Progress Note ---
Subjective HPI/CC On Admission Date Seen by Provider: Apr 19, 2023 Time Seen by Provider: 16:00 Subjective/Events-last exam 04/19/2023: Venofer ordered Port in place so will start today REJI wraps in place Sugars better Freestyle juan f in place Vit B12 injection given and will start PO supplement tomorrow 04/18/2023: [place] discussed Off O2 daytime IS ordered 91% this am Sleep study 05/11/23 Freestyle juan f will be here today No incontinence Alevan on her buttock WILBERTO hose unable to be used so place on wide REJI wraps 1 person transfer now 04/17/2023: No major issues No pain Improved overall Off O2 currently at bedside Reviewed meds Lovenox 40mg only since h/o GIB no OAC for AF Review of Systems General: Fatigue, Malaise Objective Exam Vital Signs Vital Signs Date Time Temp Pulse Resp B/P (MAP) Pulse Ox O2 Delivery O2 Flow Rate FiO2 04/19/23 10:15 93 Room Air 0.00 04/19/23 07:29 36.4 70 18 132/61 (84) 04/17/23 08:48 21 Capillary Refill : General Appearance: No Apparent Distress, WD/WN, Chronically ill, Obese HEENT: PERRL/EOMI, Normal ENT Inspection, Pharynx Normal Neck: Full Range of Motion, Normal Inspection, Non Tender, Supple, Carotid Bruit Respiratory: Chest Non Tender, Lungs Clear, No Accessory Muscle Use, No Re spiratory Distress, Decreased Breath Sounds Cardiovascular: Regular Rate, Rhythm, No Gallop, No JVD, No Murmur, Normal Peripheral Pulses Gastrointestinal: Normal Bowel Sounds, No Organomegaly, No Pulsatile Mass, Non Tender, Soft Back: Normal Inspection, No CVA Tenderness, No Vertebral Tenderness Extremity: Normal Capillary Refill, Normal Inspection, Normal Range of Motion, Non Tender, No Calf Tenderness, No Pedal Edema Neurologic/Psychiatric: Alert, Oriented x3, Normal Mood/Affect, 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 FIM Transfers Therapy Code Descriptions/Definitions Functional [place] Measure: 0=Not Assessed/NA 4=Minimal Assistance 1=Total Assistance 5=Supervision or Setup 2=Maximal Assistance 6=Modified [place] 3=Moderate Assistance 7=Complete IndependenceSCALE: Activities may be completed with or without assistive devices. 3-Wbxbpocpwi-hvepfpp completes the activity by him/herself with no assistance from a helper. 5-Set-up or Clean-up Assistance-helper sets up or cleans up; patient completes activity. [place] assists only prior to or following the activity. 4-Supervision or Touching Assistance-helper provides verbal cues and/or touching/steadying and/or contact guard assistance as patient completes activity. Assistance may be provided throughout the activity or intermittently. 3-Partial/Moderate Assistance-helper does LESS THAN HALF the effort. [place] lifts, holds or supports trunk or limbs, but provides less than half the effort. 2-Substantial/Maximal Assistance-helper does MORE THAN HALF the effort. [place] lifts or holds trunk or limbs and provides more than half the effort. 3-Xchgmdzsm-dyykbk does ALL the effort. Patient does none of the effort to compl ete the activity. Or, the assistance of 2 or more helpers is required for the patient to complete the activity. If activity was not attempted, code reason: 7-Patient Refused. 9-Not Applicable-not attempted and the patient did not perform the activity before the current illness, exacerbation or injury. 10-Not Attempted due to Environmental Limitations-(lack of equipment, weather restraints, etc.). 88-Not Attempted due to Medical Conditions or Safety Concerns. Roll Left to Right (QC): 3 (Min A ) Sit to Lying (QC): 3 (Min A ) Sit to Stand (QC): 4 Chair/Eac-mj-Kttoe Xfer(QC): 4 (CGA ) Car Transfer (QC): 4 (CGA ) Gait Training Does the Patient Walk?: Yes Distance: 150, 50, 40 Walk 10 feet (QC): 4 Walk 50 ft with 2 Turns(QC): 4 Walk 150 ft (QC): 4 Walking 10ft/uneven surface-QC: 4 (CGA ) Gait Persons Needed: 1 Gait Assistive Device: FWW Wheelchair Training Does the Pt Use a Wheelchair?: No Wheel 50 ft with 2 turns (QC): 9 Wheel 150 ft (QC): 9 Type of Wheelchair: N/A Stair Training #of Steps: 4 1 Step (curb) (QC): 4 (CGA) 4 Steps (QC): 4 (CGA ) 12 Steps (QC): 9 Balance Picking up an Object (QC): 4 (CGA ) ADL-Treatment Eating (QC): 5 Oral Hygiene (QC): 4 Shower/Bathe Self (QC): 3 Upper Body Dressing (QC): 4 Lower Body Dressing (QC): 4 On/Off Footwear (QC): 2 Toileting Hygiene (QC): 4 (per nrsg) Toilet Transfer (QC): 4 (per nrsg) Assessment/Plan Assessment and Plan Assess & Plan/Chief Complaint Assessment: 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 h/o GIB Anemia of chronic disease Leukopenia B12 def Iron def Plan: Wean O2 slowly PT OT Home meds Monitor volume overload 04/17/2023: Monitor hgb Monitor BP Wean O2 04/18/2023: Wean O2 Needs night time O2 study before DC Needs sleep study 04/19/2023: B12 supplement Venofer (1) Myopathy (2) Obesity Status: Chronic (3) T2DM (type 2 diabetes mellitus) Status: Acute (4) HTN (hypertension) Status: Acute (5) Respiratory failure Status: Acute (6) Pulmonary edema Status: Acute (7) History of diverticulosis Status: Acute (8) GERD (gastroesophageal reflux disease) Status: Chronic (9) Lymphoma MICKEY BLOUNT DO Apr 19, 2023 07:14
[2023-04-19] MEDS ORDERED: CYANOCOBALAMIN 1000 MCG/ML 1 ML VIAL IM ONE ×2 (07:15→10:15)
[2023-04-19 07:29] VITALS: BP 132/61
[2023-04-19] MEDS: OXYBUTYNIN 5 MG TABLET PO SCH ×2 (08:47→21:30)
[2023-04-19] MEDS: ASPIRIN 81 MG CHEWABLE TABLET PO SCH (08:47)
[2023-04-19] MEDS: ISOSORBIDE MONONITRATE 30 MG TABLET PO SCH (08:47)
[2023-04-19] MEDS: LOSARTAN 25 MG TABLET PO SCH (08:47)
[2023-04-19] MEDS: LORATADINE 10 MG TABLET PO SCH (08:48)
[2023-04-19] MEDS: FUROSEMIDE 40 MG TABLET PO SCH (08:48)
[2023-04-19] MEDS: PANTOPRAZOLE 20 MG TABLET PO SCH (08:48)
[2023-04-19] MEDS: SPIRONOLACTONE 25 MG (ALDACTONE) TAB PO SCH (08:48)
[2023-04-19] MEDS: AMIODARONE 200 MG TABLET PO SCH (08:48)
[2023-04-19] MEDS: carvediloL 12.5 MG TABLET PO SCH ×2 (08:48→21:30)
[2023-04-19] MEDS: ENOXAPARIN 40 MG/0.4 ML SYRINGE SC SCH ×2 (08:49→21:30)
[2023-04-19] MEDS: inSUlin DETERMIR 1 UNIT/0.01 ML (CHARGE PER UNIT) SQ SCH ×2 (08:51→21:30)
[2023-04-19] MEDS: NYSTATIN OINTMENT 30 GM TUBE TOP SCH ×2 (08:53→21:35)
[2023-04-19] MEDS: DOCUSATE SODIUM 100 MG CAPSULE PO SCH ×2 (08:57→21:30)
[2023-04-19] MEDS: SENNOSIDES 8.6 MG (SENOKOT) TAB PO SCH ×2 (08:57→21:30)
[2023-04-19] MEDS: SENNA W/DOCUSATE TABLET PO SCH ×2 (08:57→21:30)
[2023-04-19] MEDS: ACETAMINOPHEN 325 MG TABLET PO PRN (11:26)
[2023-04-19] MEDS: IRON SUCROSE 200 MG/10 ML VIAL IV SCH (16:13)
[2023-04-19 20:30] VITALS: BP 137/62
--- NOTE | 2023-04-20 05:15 | PM&R Progress Note ---
Subjective HPI/CC On Admission Date Seen by Provider: Apr 20, 2023 Time Seen by Provider: 09:00 Subjective/Events-last exam 04/20/2023: Doing well IV iron tolerated along with B12 Home O2 eval will need to be an overnight study Wants DC soon No falls 04/19/2023: Venofer ordered Port in place so will start today REJI wraps in place Sugars better Freestyle juan f in place Vit B12 injection given and will start PO supplement tomorrow 04/18/2023: Groshong discussed Off O2 daytime IS ordered 91% this am Sleep study 05/11/23 Freestyle juan f will be here today No incontinence Alevan on her buttock WILBERTO hose unable to be used so place on wide REJI wraps 1 person transfer now 04/17/2023: No major issues No pain Improved overall Off O2 currently at bedside Reviewed meds Lovenox 40mg only since h/o GIB no OAC for AF Review of Systems General: Fatigue, Malaise Objective Exam Vital Signs Vital Signs Date Time Temp Pulse Resp B/P (MAP) Pulse Ox O2 Delivery O2 Flow Rate FiO2 04/20/23 20:40 Nasal Cannula 04/20/23 19:48 37.3 70 16 150/66 (94) 94 1.00 04/20/23 19:17 18 Capillary Refill : General Appearance: No Apparent Distress, WD/WN, Chronically ill, Obese HEENT: PERRL/EOMI, Normal ENT Inspection, Pharynx Normal Neck: Full Range of Motion, Normal Inspection, Non Tender, Supple, Carotid Bruit Respiratory: Chest Non Tender, Lungs Clear, No Accessory Muscle Use, No Respiratory Distress, Decreased Breath Sounds Cardiovascular: Regular Rate, Rhythm, No Gallop, No JVD, No Murmur, Normal Peripheral Pulses Gastrointestinal: Normal Bowel Sounds, No Organomegaly, No Pulsatile Mass, Non Tender, Soft Back: Normal Inspection, No CVA Tenderness, No Vertebral Tenderness Extremity: Normal Capillary Refill, Normal Inspection, Normal Range of Motion, Non Tender, No Calf Tenderness, No Pedal Edema Neurologic/Psychiatric: Alert, Oriented x3, Normal Mood/Affect, solar electric practitioner II-XII Norm as Tested, Abnormal Gait, Motor Weakness (generalized weakness) Skin: Normal Color, Warm/Dry Lymphatic: No Adenopathy Results/Procedures Lab Laboratory Tests 04/20/23 06:16 Patient resulted labs reviewed. FIM Transfers Therapy Code Descriptions/Definitions Functional [place] Measure: 0=Not Assessed/NA 4=Minimal Assistance 1=Total Assistance 5=Supervision or Setup 2=Maximal Assistance 6=Modified [place] 3=Moderate Assistance 7=Complete IndependenceSCALE: Activities may be completed with or without assistive devices. 3-Gewopbicsj-mpcyhal completes the activity by him/herself with no assistance from a helper. 5-Set-up or Clean-up Assistance-helper sets up or cleans up; patient completes a ctivity. [place] assists only prior to or following the activity. 4-Supervision or Touching Assistance-helper provides verbal cues and/or touching/steadying and/or contact guard assistance as patient completes activity. Assistance may be provided throughout the activity or intermittently. 3-Partial/Moderate Assistance-helper does LESS THAN HALF the effort. [place] lifts, holds or supports trunk or limbs, but provides less than half the effort. 2-Substantial/Maximal Assistance-helper does MORE THAN HALF the effort. [place] lifts or holds trunk or limbs and provides more than half the effort. 5-Gwpaskxpt-zsbnyc does ALL the effort. Patient does none of the effort to complete the activity. Or, the assistance of 2 or more helpers is required for the patient to complete the activity. If activity was not attempted, code reason: 7-Patient Refused. 9-Not Applicable-not attempted and the patient did not perform the activity before the current illness, exacerbation or injury. 10-Not Attempted due to Environmental Limitations-(lack of equipment, weather restraints, etc.). 88-Not Attempted due to Medical Conditions or Safety Concerns. Roll Left to Right (QC): 3 (Min A ) Sit to Lying (QC): 3 (Min A ) Sit to Stand (QC): 4 Chair/Exj-pu-Cpabb Xfer(QC): 4 (CGA ) Car Transfer (QC): 4 (CGA ) Gait Training Does the Patient Walk?: Yes Distance: 150, 50, 40 Walk 10 feet (QC): 4 Walk 50 ft with 2 Turns(QC): 4 Walk 150 ft (QC): 4 Walking 10ft/uneven surface-QC: 4 (CGA ) Gait Persons Needed: 1 Gait Assistive Device: FWW Wheelchair Training Does the Pt Use a Wheelchair?: No Wheel 50 ft with 2 turns (QC): 9 Wheel 150 ft (QC): 9 Type of Wheelchair: N/A Stair Training #of Steps: 4 1 Step (curb) (QC): 4 (CGA) 4 Steps (QC): 4 (CGA ) 12 Steps (QC): 9 Balance Picking up an Object (QC): 4 (CGA ) ADL-Treatment Eating (QC): 5 Oral Hygiene (QC): 4 Shower/Bathe Self (QC): 3 Upper Body Dressing (QC): 4 Lower Body Dressing (QC): 4 On/Off Footwear (QC): 2 Toileting Hygiene (QC): 4 (per nrsg) Toilet Transfer (QC): 4 (per nrsg) Assessment/Plan Assessment and Plan Assess & Plan/Chief Complaint Assessment: 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 h/o GIB Anemia of chronic disease Leukopenia B12 def Iron def Plan: Wean O2 slowly PT OT Home meds Monitor volume overload 04/17/2023: Monitor hgb Monitor BP Wean O2 04/18/2023: Wean O2 Needs night time O2 study before DC Needs sleep study 04/19/2023: B12 supplement Venofer 04/20/2023: Sleep study scheduled Iron and B12 supplement (1) Myopathy (2) Obesity Status: Chronic (3) T2DM (type 2 diabetes mellitus) Status: Acute (4) HTN (hypertension) Status: Acute (5) Respiratory failure Status: Acute (6) Pulmonary edema Status: Acute (7) History of diverticulosis Status: Acute (8) GERD (gastroesophageal reflux disease) Status: Chronic (9) Lymphoma MICKEY BLOUNT DO Apr 20, 2023 05:15
[2023-04-20] MEDS: LEVOTHYROXINE 75 MCG TABLET PO SCH (05:53)
[2023-04-20] MEDS: CYANOCOBALAMIN 1,000 MCG TABLET PO SCH (05:53)
[2023-04-20] MEDS: CATHETER FLUSH 10 ML SYR IVP SCH ×3 (05:54→21:18)
[2023-04-20] MEDS: inSUlin ASPART 1 UNIT/0.01 ML (PER UNIT) SC SCH ×4 (06:03→21:11)
[2023-04-20 06:34] LABS: BASOPHILS % (AUTO) 0 % (0-10); NEUTROPHILS # (AUTO) 2.2 10^3/uL (1.8-7.8); NEUTROPHILS % (AUTO) 64 % (42-75); WHITE BLOOD COUNT 3.5 10^3/uL (4.3-11.0)
[2023-04-20 06:36] LABS: EOSINOPHILS # (AUTO) 0.3 10^3/uL (0.0-0.3); EOSINOPHILS % (AUTO) 7 % (0-10); HEMATOCRIT 29 % (35-52); HEMOGLOBIN 8.8 g/dL (11.5-16.0); LYMPHOCYTES # (AUTO) 0.6 10^3/uL (1.0-4.0); LYMPHOCYTES % (AUTO) 18 % (12-44); MEAN CORPUSCULAR HEMOGLOBIN 27 pg (25-34); MEAN CORPUSCULAR HGB CONC 31 g/dL (32-36); MEAN CORPUSCULAR VOLUME 88 fL (80-99); MEAN PLATELET VOLUME 9.5 fL (9.0-12.2); MONOCYTES # (AUTO) 0.4 10^3/uL (0.0-1.0); MONOCYTES % (AUTO) 10 % (0-12); PLATELET COUNT 151 10^3/uL (130-400)
[2023-04-20 06:40] LABS: ALBUMIN 3.4 GM/DL (3.2-4.5); BILIRUBIN,TOTAL 0.6 MG/DL (0.1-1.0); CALCIUM 8.9 MG/DL (8.5-10.1); CREATININE SERUM 1.38 MG/DL (0.60-1.30); POTASSIUM 4.3 MMOL/L (3.6-5.0); TOTAL PROTEIN 5.7 GM/DL (6.4-8.2)
[2023-04-20 07:54] VITALS: BP 136/63
[2023-04-20] MEDS: ASPIRIN 81 MG CHEWABLE TABLET PO SCH (08:39)
[2023-04-20] MEDS: ENOXAPARIN 40 MG/0.4 ML SYRINGE SC SCH ×2 (08:39→21:11)
[2023-04-20] MEDS: FUROSEMIDE 40 MG TABLET PO SCH (08:40)
[2023-04-20] MEDS: PANTOPRAZOLE 20 MG TABLET PO SCH (08:40)
[2023-04-20] MEDS: LORATADINE 10 MG TABLET PO SCH (08:40)
[2023-04-20] MEDS: SPIRONOLACTONE 25 MG (ALDACTONE) TAB PO SCH (08:40)
[2023-04-20] MEDS: OXYBUTYNIN 5 MG TABLET PO SCH ×2 (08:41→21:10)
[2023-04-20] MEDS: DOCUSATE SODIUM 100 MG CAPSULE PO SCH ×2 (08:41→19:58)
[2023-04-20] MEDS: AMIODARONE 200 MG TABLET PO SCH (08:43)
[2023-04-20] MEDS: LOSARTAN 25 MG TABLET PO SCH (08:44)
[2023-04-20] MEDS: ISOSORBIDE MONONITRATE 30 MG TABLET PO SCH (08:44)
[2023-04-20] MEDS: carvediloL 12.5 MG TABLET PO SCH ×2 (08:50→21:10)
[2023-04-20] MEDS ORDERED: IRON SUCROSE 200 MG/10 ML VIAL IV SCH (09:00)
[2023-04-20] MEDS: inSUlin DETERMIR 1 UNIT/0.01 ML (CHARGE PER UNIT) SQ SCH ×2 (09:00→21:11)
[2023-04-20] MEDS: SENNA W/DOCUSATE TABLET PO SCH ×2 (09:05→19:58)
[2023-04-20] MEDS: SENNOSIDES 8.6 MG (SENOKOT) TAB PO SCH ×2 (09:05→19:58)
[2023-04-20] MEDS: NYSTATIN OINTMENT 30 GM TUBE TOP SCH ×2 (09:08→21:18)
--- NOTE | 2023-04-20 10:48 | Physical Therapy Daily Note ---
PT Daily Note-Current Subjective Pt sitting in recliner visiting w/son upon arrival. Pt agrees to PT. Pain Location: No Pain Reported Section J - Health Conditions 1. Rarely or not at all 2. Occasionally 3. Frequently 4. Almost constantly 8. Unable to answer Pain Effect on Sleep: 1 Pain Interference with Therapy: 1 Pain Interference w/Day-to-Day: 1 Mental Status Patient Orientation: Person, Place, Situation Transfers SCALE: Activities may be completed with or without assistive devices. 7-Tbfdvdnhug-maucohw completes the activity by him/herself with no assistance from a helper. 5-Set-up or Clean-up Assistance-helper sets up or cleans up; patient completes activity. [place] assists only prior to or following the activity. 4-Supervision or Touching Assistance-helper provides verbal cues and/or t ouching/steadying and/or contact guard assistance as patient completes activity. Assistance may be provided throughout the activity or intermittently. 3-Partial/Moderate Assistance-helper does LESS THAN HALF the effort. [place] lifts, holds or supports trunk or limbs, but provides less than half the effort. 2-Substantial/Maximal Assistance-helper does MORE THAN HALF the effort. [place] lifts or holds trunk or limbs and provides more than half the effort. 9-Jtyqtyvtf-giecab does ALL the effort. Patient does none of the effort to complete the activity. Or, the assistance of 2 or more helpers is required for the patient to complete the activity. If activity was not attempted, code reason: 7-Patient Refused. 9-Not Applicable-not attempted and the patient did not perform the activity before the current illness, exacerbation or injury. 10-Not Attempted due to Environmental Limitations-(lack of equipment, weather restraints, etc.). 88-Not Attempted due to Medical Conditions or Safety Concerns. Sit to Stand (QC): 5 Toilet Transfer (QC): 5 Weight Bearing Right Lower Extremity: Right Full Weight Bearing Left Lower Extremity: Left Full Weight Bearing Gait Training Does the Patient Walk?: Yes Distance: 45', 80' Walk 10 feet (QC): 4 Walk 50 ft with 2 Turns(QC): 4 Gait Persons Needed: 1 Gait Assistive Device: FWW Treatments Completed Seated EX before TF to Standing and amb to BR. After toileting, pt is able to complete pericare in standing then amb in hallway, resting as needed. Pt amb to Therapy Gym to join FU for OT tx. All needs met. Assessment Current Status: Fair Progress Pt fatigues easily and needs some encouragement at times to push self to progress. PT [facility] Goals Gaming Dealer Goals PT Gaming Dealer Goals Time Frame: Apr 30, 2023 Roll Left & Right (QC): 6 (Pt will be Mod I with functional mobility to safely return home with family ) Sit to Lying (QC): 6 (Pt will be Mod I with functional mobility to safely return home with family ) Lying-Sitting on Side/Bed(QC): 6 (Pt will be Mod I with functional mobility to safely return home with family ) Sit to Stand (QC): 6 (Pt will be Mod I with functional mobility to safely return home with family ) Chair/Qfc-dq-Zdhcx Xfer(QC): 6 (Pt will be Mod I with functional mobility to safely return home with family ) Toilet Transfer (QC): 6 (Pt will be Mod I with functional mobility to safely return home with family ) Car Transfer (QC): 6 (Pt will be Mod I with functional mobility to safely return home with family ) Does the Patient Walk: Yes Walk 10 feet (QC): 6 (Pt will be Mod I with functional mobility to safely return home with family ) Walk 50ft with 2 Turns (QC): 6 (Pt will be Mod I with functional mobility to safely return home with family ) Walk 150 ft (QC): 6 (Pt will be Mod I with functional mobility to safely return home with family ) Walking 10ft on Uneven Surface: 6 (Pt will be Mod I with functional mobility to safely return home with family ) 1 Step (curb) (QC): 6 (Pt will be Mod I with functional mobility to safely return home with family ) 4 Steps (QC): 6 (Pt will be Mod I with functional mobility to safely return home with family ) 12 Steps (QC): 9 Picking up an Object (QC): 6 (Pt will be Mod I with functional mobility to safely return home with family ) Does the Pt use WC or Scooter?: No Wheel 50 feet with 2 turns (QC: 9 Type: N/A Wheel 150 feet: 9 Type: N/A PT Plan Problem List Problem List: Activity Tolerance, Functional Strength Treatment/Plan Treatment Plan: Continue Plan of Care Treatment Plan: Bed Mobility, Concurrent Therapy, Education, Functional Activity Timothy, Functional Strength, Group Therapy, Gait, Safety, Therapeutic Exercise, Transfers Treatment Duration: Apr 30, 2023 Frequency: At least 5 of 7 days/Wk (IRF) Estimated Hrs Per Day: 1.5 hours per day Patient and/or Family Agrees t: Yes Safety Risks/Education Patient Education: Correct Positioning Teaching Recipient: Patient Teaching Methods: Discussion Response to Teaching: Verbalize Understanding Time Time In: 900 Time Out: 1000 DATE: Apr 20, 2023 Total Billed Treatment Time: 60 Total Billed Treatment 1, EX (20m), FA x2 (25m) & GT (15m) ALYSSA MCKINLEY REMELTER Apr 20, 2023 10:48
--- NOTE | 2023-04-20 11:44 | Therapy Group Daily Note ---
Therapy Daily Group Note Patient Education Topic Home Safety, Exercises Exercises LE Seated Exercise, UE Exercise Session Ratio (pt:therapist): 3:1 Goal of Session: UE/LE Strengthing, Use of Adaptive Equipment Goal Met for this Session: Yes Pt Benefit of Group: Contributions to Others, F/U Use of Strategies @Home, Increased Functional Safety, Increased Functional Strength, Improved Cognition, Recognition of Peers, Socialization Other/Notes Pt ambulated to therapy gym using FWW for OT group. Group consisted of B UE strengthening exercises and socialization. Pt's remembered each other from previous groups and was able to recalled prior conversations with peers. Pt able to complete a variety of B UE exercises for gross and fine motor strengthening for daily functional tasks. Skilled instruction given for correct technique and modifications when needed. Pt completed 3 exercises for 5 min each. Pt then completed dowel tamara and ball exercises in sitting to work on B UE AROM, strength and dynamic sitting. Pt educated on tub transfer bench and leg farm specialist for safe transfers at home. Pt acknowledged understanding of equipment and gave personal stories to demonstrate knowledge. Pt ambulated back to room using FWW with SBA for safety. After session, pt sitting in recliner with call light/phone in reach. All needs met in room. Start Time: 10:00 Stop Time: 11:30 Total Billed Treatment Time: 90 Total Billed Treatment 1-GRP YAMEL HUNG Apr 20, 2023 11:44
--- NOTE | 2023-04-20 14:55 | Physical Therapy Daily Note ---
PT Daily Note-Current Subjective Pt sitting in recliner visiting w/son upon arrival. Pt agrees to PT. Pain Location: No Pain Reported Section J - Health Conditions 1. Rarely or not at all 2. Occasionally 3. Frequently 4. Almost constantly 8. Unable to answer Pain Effect on Sleep: 1 Pain Interference with Therapy: 1 Pain Interference w/Day-to-Day: 1 Mental Status Patient Orientation: Person, Place, Situation Transfers SCALE: Activities may be completed with or without assistive devices. 0-Qvdcyuaoug-ppdqpre completes the activity by him/herself with no assistance from a helper. 5-Set-up or Clean-up Assistance-helper sets up or cleans up; patient completes activity. [place] assists only prior to or following the activity. 4-Supervision or Touching Assistance-helper provides verbal cues and/or t ouching/steadying and/or contact guard assistance as patient completes activity. Assistance may be provided throughout the activity or intermittently. 3-Partial/Moderate Assistance-helper does LESS THAN HALF the effort. [place] lifts, holds or supports trunk or limbs, but provides less than half the effort. 2-Substantial/Maximal Assistance-helper does MORE THAN HALF the effort. [place] lifts or holds trunk or limbs and provides more than half the effort. 1-Lrogwrcfr-jxbfeu does ALL the effort. Patient does none of the effort to complete the activity. Or, the assistance of 2 or more helpers is required for the patient to complete the activity. If activity was not attempted, code reason: 7-Patient Refused. 9-Not Applicable-not attempted and the patient did not perform the activity before the current illness, exacerbation or injury. 10-Not Attempted due to Environmental Limitations-(lack of equipment, weather restraints, etc.). 88-Not Attempted due to Medical Conditions or Safety Concerns. Sit to Stand (QC): 5 Weight Bearing Right Lower Extremity: Right Full Weight Bearing Left Lower Extremity: Left Full Weight Bearing Exercises Seated Therapy Exercises: Sit to stand, Hip flexion Seated Reps: 10 Standing: Marching Standing Reps: 10 Treatments MARKET RESEARCH CONSULTANT discusses pt & son's question regarding need for grab bar & sink for TF vs toilet riser. Pt will also practice marches/hip flexion as practice for stairs. Ramp is option although modification will have to be made to use it safely. Pt rests in recliner at end of tx to rest w/all needs met, call light in hand. Assessment Current Status: Good Progress Pt fatigues quickly and needs recovery break but improving since coming to [facility]. PT [place]ro[place] Tender Goals [facility] Goals PT [place]ro[place] Tender Goals Time Frame: Apr 30, 2023 Roll Left & Right (QC): 6 (Pt will be Mod I with functional mobility to safely return home with family ) Sit to Lying (QC): 6 (Pt will be Mod I with functional mobility to safely return home with family ) Lying-Sitting on Side/Bed(QC): 6 (Pt will be Mod I with functional mobility to safely return home with family ) Sit to Stand (QC): 6 (Pt will be Mod I with functional mobility to safely return home with family ) Chair/Ymz-fg-Mykwn Xfer(QC): 6 (Pt will be Mod I with functional mobility to safely return home with family ) Toilet Transfer (QC): 6 (Pt will be Mod I with functional mobility to safely return home with family ) Car Transfer (QC): 6 (Pt will be Mod I with functional mobility to safely return home with family ) Does the Patient Walk: Yes Walk 10 feet (QC): 6 (Pt will be Mod I with functional mobility to safely return home with family ) Walk 50ft with 2 Turns (QC): 6 (Pt will be Mod I with functional mobility to safely return home with family ) Walk 150 ft (QC): 6 (Pt will be Mod I with functional mobility to safely return home with family ) Walking 10ft on Uneven Surface: 6 (Pt will be Mod I with functional mobility to safely return home with family ) 1 Step (curb) (QC): 6 (Pt will be Mod I with functional mobility to safely return home with family ) 4 Steps (QC): 6 (Pt will be Mod I with functional mobility to safely return home with family ) 12 Steps (QC): 9 Picking up an Object (QC): 6 (Pt will be Mod I with functional mobility to safely return home with family ) Does the Pt use WC or Scooter?: No Wheel 50 feet with 2 turns (QC: 9 Type: N/A Wheel 150 feet: 9 Type: N/A PT Plan Problem List Problem List: Activity Tolerance, Functional Strength Treatment/Plan Treatment Plan: Continue Plan of Care Treatment Plan: Bed Mobility, Concurrent Therapy, Education, Functional Activity Timothy, Functional Strength, Group Therapy, Gait, Safety, Therapeutic Exercise, Transfers Treatment Duration: Apr 30, 2023 Frequency: At least 5 of 7 days/Wk (IRF) Estimated Hrs Per Day: 1.5 hours per day Patient and/or Family Agrees t: Yes Safety Risks/Education Patient Education: Transfer Techniques, Steps, Correct Positioning, Safety Issues Teaching Recipient: Patient, Family Teaching Methods: Demonstration, Discussion Response to Teaching: Verbalize Understanding Time Time In: 1300 Time Out: 1330 DATE: Apr 20, 2023 Total Billed Treatment Time: 30 Total Billed Treatment 1, EX x2 (30m) ALYSSA MCKINLEY MARKET RESEARCH CONSULTANT Apr 20, 2023 14:55
[2023-04-20 19:17] VITALS: BP 136/63
[2023-04-20 19:48] VITALS: BP 150/66
[2023-04-21] MEDS: inSUlin ASPART 1 UNIT/0.01 ML (PER UNIT) SC SCH ×4 (05:59→21:15)
[2023-04-21] MEDS: LEVOTHYROXINE 75 MCG TABLET PO SCH (06:26)
[2023-04-21] MEDS: CATHETER FLUSH 10 ML SYR IVP SCH ×3 (06:26→22:23)
[2023-04-21] MEDS: CYANOCOBALAMIN 1,000 MCG TABLET PO SCH (06:26)
[2023-04-21 08:00] VITALS: BP 115/67
[2023-04-21 08:18] VITALS: BP 138/62
[2023-04-21] MEDS: FUROSEMIDE 40 MG TABLET PO SCH (08:21)
[2023-04-21] MEDS: LORATADINE 10 MG TABLET PO SCH (08:21)
[2023-04-21] MEDS: SPIRONOLACTONE 25 MG (ALDACTONE) TAB PO SCH (08:21)
[2023-04-21] MEDS: PANTOPRAZOLE 20 MG TABLET PO SCH (08:21)
[2023-04-21] MEDS: LOSARTAN 25 MG TABLET PO SCH (08:21)
[2023-04-21] MEDS: carvediloL 12.5 MG TABLET PO SCH ×2 (08:21→21:14)
[2023-04-21] MEDS: OXYBUTYNIN 5 MG TABLET PO SCH ×2 (08:21→21:14)
[2023-04-21] MEDS: AMIODARONE 200 MG TABLET PO SCH (08:22)
[2023-04-21] MEDS: ASPIRIN 81 MG CHEWABLE TABLET PO SCH (08:22)
[2023-04-21] MEDS: ENOXAPARIN 40 MG/0.4 ML SYRINGE SC SCH ×2 (08:22→21:15)
[2023-04-21] MEDS: SENNOSIDES 8.6 MG (SENOKOT) TAB PO SCH ×2 (08:22→21:15)
[2023-04-21] MEDS: ISOSORBIDE MONONITRATE 30 MG TABLET PO SCH (08:22)
[2023-04-21] MEDS: SENNA W/DOCUSATE TABLET PO SCH ×2 (08:22→21:15)
[2023-04-21] MEDS: DOCUSATE SODIUM 100 MG CAPSULE PO SCH ×2 (08:23→21:15)
--- NOTE | 2023-04-21 09:08 | PM&R Progress Note ---
Subjective HPI/CC On Admission Date Seen by Provider: Apr 21, 2023 Time Seen by Provider: 09:00 Subjective/Events-last exam 04/21/2023: Patient doing well Less short of breath Discharge planning Blood sugars improved 04/20/2023: Doing well IV iron tolerated along with B12 Home O2 eval will need to be an overnight study Wants DC soon No falls 04/19/2023: Venofer ordered Port in place so will start today REJI wraps in place Sugars better Freestyle juan f in place Vit B12 injection given and will start PO supplement tomorrow 04/18/2023: Groshong discussed Off O2 daytime IS ordered 91% this am Sleep study 05/11/23 Freestyle juan f will be here today No incontinence Alevan on her buttock WILBERTO hose unable to be used so place on wide REJI wraps 1 person transfer now 04/17/2023: No major issues No pain Improved overall Off O2 currently at bedside Reviewed meds Lovenox 40mg only since h/o GIB no OAC for AF Review of Systems General: Fatigue, Malaise Pulmonary: Dyspnea Objective Exam Vital Signs Vital Signs Date Time Temp Pulse Resp B/P (MAP) Pulse Ox O2 Delivery O2 Flow Rate FiO2 04/21/23 09:59 Room Air 04/21/23 08:18 60 138/62 (87) 04/21/23 08:00 36.4 16 92 04/20/23 19:48 1.00 04/20/23 19:17 18 Capillary Refill : General Appearance: No Apparent Distress, WD/WN, Chronically ill, Obese HEENT: PERRL/EOMI, Normal ENT Inspection, Pharynx Normal Neck: Full Range of Motion, Normal Inspection, Non Tender, Supple, Carotid Bruit Respiratory: Chest Non Tender, Lungs Clear, No Accessory Muscle Use, No Respiratory Distress, Decreased Breath Sounds Cardiovascular: Regular Rate, Rhythm, No Gallop, No JVD, No Murmur, Normal Peripheral Pulses Gastrointestinal: Normal Bowel Sounds, No Organomegaly, No Pulsatile Mass, Non Tender, Soft Back: Normal Inspection, No CVA Tenderness, No Vertebral Tenderness Extremity: Normal Capillary Refill, Normal Inspection, Normal Range of Motion, Non Tender, No Calf Tenderness, No Pedal Edema Neurologic/Psychiatric: Alert, Oriented x3, Normal Mood/Affect, parts specialist II-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 FIM Transfers Therapy Code Descriptions/Definitions Functional [place] Measure: 0=Not Assessed/NA 4=Minimal Assistance 1=Total Assistance 5=Supervision or Setup 2=Maximal Assistance 6=Modified [place] 3=Moderate Assistance 7=Complete IndependenceSCALE: Activities may be completed with or without assistive devices. 2-Bbqxaeazxl-mjehtbb completes the activity by him/herself with no assistance from a helper. 5-Set-up or Clean-up Assistance-helper sets up or cleans up; patient completes activity. [place] assists only prior to or following the activity. 4-Supervision or Touching Assistance-helper provides verbal cues and/or touching/steadying and/or contact guard assistance as patient completes activity. Assistance may be provided throughout the activity or intermittently. 3-Partial/Moderate Assistance-helper does LESS THAN HALF the effort. [place] lifts, holds or supports trunk or limbs, but provides less than half the effort. 2-Substantial/Maximal Assistance-helper does MORE THAN HALF the effort. [place] lifts or holds trunk or limbs and provides more than half the effort. 0-Rpevscxop-dycghw does ALL the effort. Patient does none of the effort to complete the activity. Or, the assistance of 2 or more helpers is required for the patient to complete the activity. If activity was not attempted, code reason: 7-Patient Refused. 9-Not Applicable-not attempted and the patient did not perform the activity before the current illness, exacerbation or injury. 10-Not Attempted due to Environmental Limitations-(lack of equipment, weather restraints, etc.). 88-Not Attempted due to Medical Conditions or Safety Concerns. Roll Left to Right (QC): 3 (Min A ) Sit to Lying (QC): 3 (Min A ) Sit to Stand (QC): 5 Chair/Cli-lo-Cjtxt Xfer(QC): 4 (CGA ) Car Transfer (QC): 4 (CGA ) Gait Training Does the Patient Walk?: Yes Distance: 45', 80' Walk 10 feet (QC): 4 Walk 50 ft with 2 Turns(QC): 4 Walk 150 ft (QC): 4 Walking 10ft/uneven surface-QC: 4 (CGA ) Gait Persons Needed: 1 Gait Assistive Device: FWW Wheelchair Training Does the Pt Use a Wheelchair?: No Wheel 50 ft with 2 turns (QC): 9 Wheel 150 ft (QC): 9 Type of Wheelchair: N/A Stair Training #of Steps: 4 1 Step (curb) (QC): 4 (CGA) 4 Steps (QC): 4 (CGA ) 12 Steps (QC): 9 Balance Picking up an Object (QC): 4 (CGA ) ADL-Treatment Eating (QC): 5 Oral Hygiene (QC): 4 Shower/Bathe Self (QC): 3 Upper Body Dressing (QC): 4 Lower Body Dressing (QC): 4 On/Off Footwear (QC): 2 Toileting Hygiene (QC): 4 (per nrsg) Toilet Transfer (QC): 4 (per nrsg) Assessment/Plan Assessment and Plan Assess & Plan/Chief Complaint Assessment: 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 h/o GIB Anemia of chronic disease Leukopenia B12 def Iron def Plan: Wean O2 slowly PT OT Home meds Monitor volume overload 04/17/2023: Monitor hgb Monitor BP Wean O2 04/18/2023: Wean O2 Needs night time O2 study before DC Needs sleep study 04/19/2023: B12 supplement Venofer 04/20/2023: Sleep study scheduled Iron and B12 supplement 04/21/2023: Monitor closely Overnight O2 study (1) Myopathy (2) Obesity Status: Chronic (3) T2DM (type 2 diabetes mellitus) Status: Acute (4) HTN (hypertension) Status: Acute (5) Respiratory failure Status: Acute (6) Pulmonary edema Status: Acute (7) History of diverticulosis Status: Acute (8) GERD (gastroesophageal reflux disease) Status: Chronic (9) Lymphoma MICKEY BLOUNT DO Apr 21, 2023 09:08
[2023-04-21] MEDS: IRON SUCROSE 200 MG/10 ML VIAL IV SCH (09:14)
[2023-04-21] MEDS: NYSTATIN OINTMENT 30 GM TUBE TOP SCH ×2 (09:19→21:15)
--- NOTE | 2023-04-21 11:14 | Occupational Ther Daily Note ---
OT Current Status-Daily Note Subjective Pt sitting in recliner upon arrival. Alert and cooperative, no pain mentioned at this time. Pt refused shower, requested sponge bath instead on this date, pt stated "that shower is way to slick, ill fall". Pt very fatigued today, emotional during OT session. ADL-Treatment Pt ambulated to toilet in bathroom and completed toilet hygiene with SBA, then back to recliner in room. Pt sat in recliner in room and completed sponge bath, with set up assist. Pt max A for footwear, to mele socks. Pt changed brief with set up assist. Pt completed upper and lower body dressing with set up as well. Pt mentioned pain on head, stated from having shingles, and pain there comes and goes, nursing notified. Pt completed oral hygiene and grooming while standing at sink with SBA for safety. Pt then sat back in recliner in room and therapist went over HEP and importance of continuing exercises at home to keep gaining strength. Pt completed 5 B UE to address strengthening required for all daily activities, 8-10 reps 1 time due to fatigue, completed with medium resi stance (red theraband). Pt was then left in recliner in room to rest, call light within reach, all needs met at this time. Therapy Code Descriptions/Definitions Functional [place] Measure: 0=Not Assessed/NA 4=Minimal Assistance 1=Total Assistance 5=Supervision or Setup 2=Maximal Assistance 6=Modified [place] 3=Moderate Assistance 7=Complete IndependenceSCALE: Activities may be completed with or without assistive devices. 3-Wtksnvwngg-qhsdzqp completes the activity by him/herself with no assistance from a helper. 5-Set-up or Clean-up Assistance-helper sets up or cleans up; patient completes activity. [place] assists only prior to or following the activity. 4-Supervision or Touching Assistance-helper provides verbal cues and/or touching/steadying and/or contact guard assistance as patient completes activity. Assistance may be provided throughout the activity or intermittently. 3-Partial/Moderate Assistance-helper does LESS THAN HALF the effort. [place] lifts, holds or supports trunk or limbs, but provides less than half the effort. 2-Substantial/Maximal Assistance-helper does MORE THAN HALF the effort. [place] lifts or holds trunk or limbs and provides more than half the effort. 8-Cmsjwdxzm-dveera does ALL the effort. Patient does none of the effort to complete the activity. Or, the assistance of 2 or more helpers is required for the patient to complete the activity. If activity was not attempted, code reason: 7-Patient Refused. 9-Not Applicable-not attempted and the patient did not perform the activity before the current illness, exacerbation or injury. 10-Not Attempted due to Environmental Limitations-(lack of equipment, weather restraints, etc.). 88-Not Attempted due to Medical Conditions or Safety Concerns. Eating (QC): 5 Oral Hygiene (QC): 4 Shower/Bathe Self (QC): 4 Upper Body Dressing (QC): 5 Lower Body Dressing (QC): 5 On/Off Footwear: 3 Toileting Hygiene (QC): 4 Education OT Patient Education: Correct positioning, Energy conservation, Exercise progr am, Home exercise program, Progress toward Goal/Update tx plan, Purpose of tx/functional activities, Transfer techniques Teaching Recipient: Patient Teaching Methods: Demonstration, Discussion Response to Teaching: Verbalize Understanding, Return Demonstration OT Short Term Goals Short Term Goals Time Frame: Apr 20, 2023 Oral hygiene: 5 (standing) Toileting hygiene: 5 Putting on/taking off footwear: 5 OT Alf Goals Alf Goals Acute change in mental status: 0 Inattention: 0 Disorganized thinkin Altered level of consciousness: 0 Eating (QC): 6 Oral Hygiene (QC): 6 Toileting Hygiene (QC): 6 Shower/Bathe Self (QC): 6 Upper Body Dressing (QC): 6 Lower Body Dressing (QC): 6 On/Off Footwear (QC): 6 1=Demonstrate adherence to instructed precautions during ADL tasks. 2=Patient will verbalize/demonstrate understanding of assistive devices/modifications for ADL. 3=Patient will improve strength/tolerance for activity to enable patient to perform ADL's. OT Education/Plan Problem List/Assessment Assessment: Decreased Activ Tolerance, Decreased Safety Aware, Decreased UE Strength Discharge Recommendations Plan/Recommendations: Continue POC Treatment Plan/Plan of Care Patient would benefit from OT for education, treatment and training to promote independence in ADL's, mobility, safety and/or upper extremity function for ADL's. Plan of Care: ADL Retraining, Concurrent Therapy, Functional Mobility, Group Exercise/Act as Ind, Visual/Perceptual Retrain Treatment Duration: Apr 22, 2023 Frequency: Modified Program (IRF) (75 [id number]) Estimated Hrs Per Day: Other (75 [id number]) Agreement: Yes Rehab Potential: Good Time Start Time: 10:00 Stop Time: 11:30 DATE: Apr 21, 2023 Total Time Billed (hr/min): 90 Billed Treatment Time 1 visit ADL 4 (60) EX 2 (30) Janell Whitley COTA Apr 21, 2023 11:14
--- NOTE | 2023-04-21 12:06 | Physical Therapy Daily Note ---
PT Daily Note-Current Subjective Pt sitting in recliner upon arrival. Pt agrees to PT. Pain Location: No Pain Reported Section J - Health Conditions 1. Rarely or not at all 2. Occasionally 3. Frequently 4. Almost constantly 8. Unable to answer Pain Effect on Sleep: 1 Pain Interference with Therapy: 1 Pain Interference w/Day-to-Day: 1 Mental Status Patient Orientation: Person, Place, Time, Situation Transfers SCALE: Activities may be completed with or without assistive devices. 3-Epsqwczewm-sfaoxfx completes the activity by him/herself with no assistance from a helper. 5-Set-up or Clean-up Assistance-helper sets up or cleans up; patient completes activity. [employer] assists only prior to or following the activity. 4-Supervision or Touching Assistance-helper provides verbal cues and/or touching/steadying and/or contact guard assistance as patient completes activity. Assistance may be provided throughout the activity or intermittently. 3-Partial/Moderate Assistance-helper does LESS THAN HALF the effort. [employer] lifts, holds or supports trunk or limbs, but provides less than half the effort. 2-Substantial/Maximal Assistance-helper does MORE THAN HALF the effort. [employer] lifts or holds trunk or limbs and provides more than half the effort. 4-Zwhunhqyt-jginfp does ALL the effort. Patient does none of the effort to complete the activity. Or, the assistance of 2 or more helpers is required for the patient to complete the activity. If activity was not attempted, code reason: 7-Patient Refused. 9-Not Applicable-not attempted and the patient did not perform the activity before the current illness, exacerbation or injury. 10-Not Attempted due to Environmental Limitations-(lack of equipment, weather restraints, etc.). 88-Not Attempted due to Medical Conditions or Safety Concerns. Sit to Stand (QC): 5 Toilet Transfer (QC): 5 Weight Bearing Right Lower Extremity: Right Full Weight Bearing Left Lower Extremity: Left Full Weight Bearing Gait Training Does the Patient Walk?: Yes Distance: 50' x2 Walk 10 feet (QC): 5 Walk 50 ft with 2 Turns(QC): 5 Gait Assistive Device: Walker 4 Wheeled (Pt's Personal Standing 4WW) Treatments Pt completed Seated EX at recliner before TF to Standing. Pt amb to BR. Pt again discussed home BR set-up w/[employer]. After finishing toileting, pt completes pericare. Pt amb in hallway and attempts steps using curb step w/personal standing 4WW on curb but only able to toe tap, not pull self up on step. After rest, pt returns to room and sits in recliner. All needs met, call light in hand. Assessment Current Status: Fair Progress Pt can be self limiting at times but reports weakness brissa. in R knee as to limitation in movement. PT Hourly Sign Language Interpreter Goals Hourly Sign Language Interpreter Goals PT Skilled Nursing Goals Time Frame: Apr 30, 2023 Roll Left & Right (QC): 6 (Pt will be Mod I with functional mobility to safely return home with family ) Sit to Lying (QC): 6 (Pt will be Mod I with functional mobility to safely return home with family ) Lying-Sitting on Side/Bed(QC): 6 (Pt will be Mod I with functional mobility to safely return home with family ) Sit to Stand (QC): 6 (Pt will be Mod I with functional mobility to safely return home with family ) Chair/Qpb-tg-Typsl Xfer(QC): 6 (Pt will be Mod I with functional mobility to safely return home with family ) Toilet Transfer (QC): 6 (Pt will be Mod I with functional mobility to safely return home with family ) Car Transfer (QC): 6 (Pt will be Mod I with functional mobility to safely return home with family ) Does the Patient Walk: Yes Walk 10 feet (QC): 6 (Pt will be Mod I with functional mobility to safely return home with family ) Walk 50ft with 2 Turns (QC): 6 (Pt will be Mod I with functional mobility to safely return home with family ) Walk 150 ft (QC): 6 (Pt will be Mod I with functional mobility to safely return home with family ) Walking 10ft on Uneven Surface: 6 (Pt will be Mod I with functional mobility to safely return home with family ) 1 Step (curb) (QC): 6 (Pt will be Mod I with functional mobility to safely return home with family ) 4 Steps (QC): 6 (Pt will be Mod I with functional mobility to safely return home with family ) 12 Steps (QC): 9 Picking up an Object (QC): 6 (Pt will be Mod I with functional mobility to safely return home with family ) Does the Pt use WC or Scooter?: No Wheel 50 feet with 2 turns (QC: 9 Type: N/A Wheel 150 feet: 9 Type: N/A PT Plan Problem List Problem List: Activity Tolerance, Functional Strength Treatment/Plan Treatment Plan: Continue Plan of Care Treatment Plan: Bed Mobility, Concurrent Therapy, Education, Functional Activity [place], Functional Strength, Group Therapy, Gait, Safety, Therapeutic Exercise, Transfers Treatment Duration: Apr 30, 2023 Frequency: At least 5 of 7 days/Wk (IRF) Estimated Hrs Per Day: 1.5 hours per day Patient and/or Family Agrees t: Yes Safety Risks/Education Patient Education: Steps, Correct Positioning, Safety Issues Teaching Recipient: Patient Teaching Methods: Discussion Response to Teaching: Verbalize Understanding Time Time In: 0800 Time Out: 0900 DATE: Apr 21, 2023 Total Billed Treatment Time: 60 Total Billed Treatment 1, FA x2 (25m), GT (15m) & EX (20m) ALYSSA MCKINLEY [employer] Apr 21, 2023 12:06
[2023-04-21] MEDS: ACETAMINOPHEN 325 MG TABLET PO PRN (16:21)
--- NOTE | 2023-04-21 16:43 | Physical Therapy Daily Note ---
PT Daily Note-Current Subjective Pt sitting in recliner upon arrival. Pt agrees to PT. Pain Location: No Pain Reported Section J - Health Conditions 1. Rarely or not at all 2. Occasionally 3. Frequently 4. Almost constantly 8. Unable to answer Pain Effect on Sleep: 1 Pain Interference with Therapy: 1 Pain Interference w/Day-to-Day: 1 Mental Status Patient Orientation: Person, Place, Situation Transfers SCALE: Activities may be completed with or without assistive devices. 4-Bdkkeznetj-ztcbqdl completes the activity by him/herself with no assistance from a helper. 5-Set-up or Clean-up Assistance-helper sets up or cleans up; patient completes activity. [place] assists only prior to or following the activity. 4-Supervision or Touching Assistance-helper provides verbal cues and/or touching/steadying and/or contact guard assistance as patient completes activity. Assistance may be provided throughout the activity or intermittently. 3-Partial/Moderate Assistance-helper does LESS THAN HALF the effort. [place] lifts, holds or supports trunk or limbs, but provides less than half the effort. 2-Substantial/Maximal Assistance-helper does MORE THAN HALF the effort. [place] lifts or holds trunk or limbs and provides more than half the effort. 7-Nmpwuhken-ysftwa does ALL the effort. Patient does none of the effort to complete the activity. Or, the assistance of 2 or more helpers is required for the patient to complete the activity. If activity was not attempted, code reason: 7-Patient Refused. 9-Not Applicable-not attempted and the patient did not perform the activity before the current illness, exacerbation or injury. 10-Not Attempted due to Environmental Limitations-(lack of equipment, weather restraints, etc.). 88-Not Attempted due to Medical Conditions or Safety Concerns. Sit to Stand (QC): 5 Toilet Transfer (QC): 5 Weight Bearing Right Lower Extremity: Right Full Weight Bearing Left Lower Extremity: Left Full Weight Bearing Gait Training Does the Patient Walk?: Yes Distance: 15' x2 Walk 10 feet (QC): 5 Gait Assistive Device: Walker 4 Wheeled Wheelchair Training Does the Pt Use a Wheelchair?: No Exercises Supine Ex: Ankle pumps, Quad Set, Heel Slides, Short Arc Quads, Hip abd/add Supine Reps: 15 Seated Therapy Exercises: Ankle pumps, Long arc quads, Hip flexion, Hamstring Curls, Hip abd/add, Glut set Seated Reps: 15 Treatments Pt completes EX and TF to amb to BR then returns to recliner. All needs met, call light in hand. Assessment Current Status: Fair Progress Pt fatigues easily and at times needs encouragement to push self. PT Supervisor Offset Plate Preparation Goals Supervisor Offset Plate Preparation Goals PT Senior Living Goals Time Frame: Apr 30, 2023 Roll Left & Right (QC): 6 (Pt will be Mod I with functional mobility to safely return home with family ) Sit to Lying (QC): 6 (Pt will be Mod I with functional mobility to safely return home with family ) Lying-Sitting on Side/Bed(QC): 6 (Pt will be Mod I with functional mobility to safely return home with family ) Sit to Stand (QC): 6 (Pt will be Mod I with functional mobility to safely return home with family ) Chair/Auw-pc-Kzeai Xfer(QC): 6 (Pt will be Mod I with functional mobility to safely return home with family ) Toilet Transfer (QC): 6 (Pt will be Mod I with functional mobility to safely return home with family ) Car Transfer (QC): 6 (Pt will be Mod I with functional mobility to safely return home with family ) Does the Patient Walk: Yes Walk 10 feet (QC): 6 (Pt will be Mod I with functional mobility to safely return home with family ) Walk 50ft with 2 Turns (QC): 6 (Pt will be Mod I with functional mobility to safely return home with family ) Walk 150 ft (QC): 6 (Pt will be Mod I with functional mobility to safely return home with family ) Walking 10ft on Uneven Surface: 6 (Pt will be Mod I with functional mobility to safely return home with family ) 1 Step (curb) (QC): 6 (Pt will be Mod I with functional mobility to safely return home with family ) 4 Steps (QC): 6 (Pt will be Mod I with functional mobility to safely return home with family ) 12 Steps (QC): 9 Picking up an Object (QC): 6 (Pt will be Mod I with functional mobility to safely return home with family ) Does the Pt use WC or Scooter?: No Wheel 50 feet with 2 turns (QC: 9 Type: N/A Wheel 150 feet: 9 Type: N/A PT Plan Problem List Problem List: Activity Tolerance, Functional Strength Treatment/Plan Treatment Plan: Continue Plan of Care Treatment Plan: Bed Mobility, Concurrent Therapy, Education, Functional Activity [place], Functional Strength, Group Therapy, Gait, Safety, Therapeutic Exercise, Transfers Treatment Duration: Apr 30, 2023 Frequency: At least 5 of 7 days/Wk (IRF) Estimated Hrs Per Day: 1.5 hours per day Patient and/or Family Agrees t: Yes Time Time In: 1430 Time Out: 1500 DATE: Apr 21, 2023 Total Billed Treatment Time: 30 Total Billed Treatment 1, FA x2 (30m) ALYSSA MCKINLEY ASSISTANT PROFESSOR OF PSYCHOLOGY Apr 21, 2023 16:43
[2023-04-21 19:37] VITALS: BP 125/58
[2023-04-21] MEDS: inSUlin DETERMIR 1 UNIT/0.01 ML (CHARGE PER UNIT) SQ SCH (21:15)
--- NOTE | 2023-04-22 04:55 | PM&R Progress Note ---
Subjective HPI/CC On Admission Date Seen by Provider: Apr 22, 2023 Time Seen by Provider: 12:00 Subjective/Events-last exam 04/22/2023: Patient doing really well Home oxygen evaluation will be done since she is desatting a bit today Checking labs and chest x-ray just to be thorough 2 L are needed at night Discharge home tomorrow 04/21/2023: Patient doing well Less short of breath Discharge planning Blood sugars improved 04/20/2023: Doing well IV iron tolerated along with B12 Home O2 eval will need to be an overnight study Wants DC soon No falls 04/19/2023: Venofer ordered Port in place so will start today REJI wraps in place Sugars better Freestyle juan f in place Vit B12 injection given and will start PO supplement tomorrow 04/18/2023: [place] discussed Off O2 daytime IS ordered 91% this am Sleep study 05/11/23 Freestyle juan f will be here today No incontinence Alevan on her buttock WILBERTO hose unable to be used so place on wide REJI wraps 1 person transfer now 04/17/2023: No major issues No pain Improved overall Off O2 currently at bedside Reviewed meds Lovenox 40mg only since h/o GIB no OAC for AF Review of Systems General: Fatigue, Malaise Objective Exam Vital Signs Vital Signs Date Time Temp Pulse Resp B/P (MAP) Pulse Ox O2 Delivery O2 Flow Rate FiO2 04/22/23 08:33 Room Air 04/22/23 07:53 36.3 77 16 139/78 (98) 91 04/20/23 19:48 1.00 04/20/23 19:17 18 Capillary Refill : General Appearance: No Apparent Distress, WD/WN, Chronically ill, Obese HEENT: PERRL/EOMI, Normal ENT Inspection, Pharynx Normal Neck: Full Range of Motion, Normal Inspection, Non Tender, Supple, Carotid Bruit Respiratory: Chest Non Tender, Lungs Clear, No Accessory Muscle Use, No Respiratory Distress, Decreased Breath Sounds Cardiovascular: Regular Rate, Rhythm, No Gallop, No JVD, No Murmur, Normal Peripheral Pulses Gastrointestinal: Normal Bowel Sounds, No Organomegaly, No Pulsatile Mass, Non Tender, Soft Back: Normal Inspection, No CVA Tenderness, No Vertebral Tenderness Extremity: Normal Capillary Refill, Normal Inspection, Normal Range of Motion, Non Tender, No Calf Tenderness, No Pedal Edema Neurologic/Psychiatric: Alert, Oriented x3, Normal Mood/Affect, online marketing manager II-XII Norm as Tested, Abnormal Gait, Motor Weakness (generalized weakness) Skin: Normal Color, Warm/Dry Lymphatic: No Adenopathy Results/Procedures Lab Laboratory Tests 04/22/23 14:30 Patient resulted labs reviewed. FIM Transfers Therapy Code Descriptions/Definitions Functional [place] Measure: 0=Not Assessed/NA 4=Minimal Assistance 1=Total Assistance 5=Supervision or Setup 2=Maximal Assistance 6=Modified [place] 3=Moderate Assistance 7=Complete IndependenceSCALE: Activities may be completed with or without assistive devices. 2-Kembulehzg-ersworr completes the activity by him/herself with no assistance from a helper. 5-Set-up or Clean-up Assistance-helper sets up or cleans up; patient completes activity. [place] assists only prior to or following the activity. 4-Supervision or Touching Assistance-helper provides verbal cues and/or touching/steadying and/or contact guard assistance as patient completes activity. Assistance may be provided throughout the activity or intermittently. 3-Partial/Moderate Assistance-helper does LESS THAN HALF the effort. [place] lifts, holds or supports trunk or limbs, but provides less than half the effort. 2-Substantial/Maximal Assistance-helper does MORE THAN HALF the effort. [place] lifts or holds trunk or limbs and provides more than half the effort. 5-Sehppjegj-cdqgbi does ALL the effort. Patient does none of the effort to complete the activity. Or, the assistance of 2 or more helpers is required for the patient to complete the activity. If activity was not attempted, code reason: 7-Patient Refused. 9-Not Applicable-not attempted and the patient did not perform the activity before the current illness, exacerbation or injury. 10-Not Attempted due to Environmental Limitations-(lack of equipment, weather restraints, etc.). 88-Not Attempted due to Medical Conditions or Safety Concerns. Roll Left to Right (QC): 3 (Min A ) Sit to Lying (QC): 3 (Min A ) Sit to Stand (QC): 5 Chair/Hcy-zi-Vkiwm Xfer(QC): 4 (CGA ) Car Transfer (QC): 4 (CGA ) Gait Training Does the Patient Walk?: Yes Distance: 15' x2 Walk 10 feet (QC): 5 Walk 50 ft with 2 Turns(QC): 5 Walk 150 ft (QC): 4 Walking 10ft/uneven surface-QC: 4 (CGA ) Gait Persons Needed: 1 Gait Assistive Device: Walker 4 Wheeled Wheelchair Training Does the Pt Use a Wheelchair?: No Wheel 50 ft with 2 turns (QC): 9 Wheel 150 ft (QC): 9 Type of Wheelchair: N/A Stair Training #of Steps: 4 1 Step (curb) (QC): 4 (CGA) 4 Steps (QC): 4 (CGA ) 12 Steps (QC): 9 Balance Picking up an Object (QC): 4 (CGA ) ADL-Treatment Eating (QC): 5 Oral Hygiene (QC): 4 Shower/Bathe Self (QC): 4 Upper Body Dressing (QC): 5 Lower Body Dressing (QC): 5 On/Off Footwear (QC): 3 Toileting Hygiene (QC): 4 Toilet Transfer (QC): 4 (per nrsg) Assessment/Plan Assessment and Plan Assess & Plan/Chief Complaint Assessment: 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 h/o GIB Anemia of chronic disease Leukopenia B12 def Iron def Plan: Wean O2 slowly PT OT Home meds Monitor volume overload 04/17/2023: Monitor hgb Monitor BP Wean O2 04/18/2023: Wean O2 Needs night time O2 study before DC Needs sleep study 04/19/2023: B12 supplement Venofer 04/20/2023: Sleep study scheduled Iron and B12 supplement 04/21/2023: Monitor closely Overnight O2 study 04/22/2023: Check labs and chest x-ray Monitor closely (1) Myopathy (2) Obesity Status: Chronic (3) T2DM (type 2 diabetes mellitus) Status: Acute (4) HTN (hypertension) Status: Acute (5) Respiratory failure Status: Acute (6) Pulmonary edema Status: Acute (7) History of diverticulosis Status: Acute (8) GERD (gastroesophageal reflux disease) Status: Chronic (9) Lymphoma MICKEY BLOUNT DO Apr 22, 2023 04:55
[2023-04-22] MEDS: CATHETER FLUSH 10 ML SYR IVP SCH ×3 (06:23→20:55)
[2023-04-22] MEDS: LEVOTHYROXINE 75 MCG TABLET PO SCH (06:23)
[2023-04-22] MEDS: CYANOCOBALAMIN 1,000 MCG TABLET PO SCH (06:23)
[2023-04-22] MEDS: inSUlin ASPART 1 UNIT/0.01 ML (PER UNIT) SC SCH ×4 (06:29→20:51)
[2023-04-22 07:53] VITALS: BP 139/78
[2023-04-22] MEDS: LORATADINE 10 MG TABLET PO SCH (09:33)
[2023-04-22] MEDS: PANTOPRAZOLE 20 MG TABLET PO SCH (09:33)
[2023-04-22] MEDS: ASPIRIN 81 MG CHEWABLE TABLET PO SCH (09:33)
[2023-04-22] MEDS: LOSARTAN 25 MG TABLET PO SCH (09:33)
[2023-04-22] MEDS: SPIRONOLACTONE 25 MG (ALDACTONE) TAB PO SCH (09:33)
[2023-04-22] MEDS: carvediloL 12.5 MG TABLET PO SCH ×2 (09:33→20:50)
[2023-04-22] MEDS: OXYBUTYNIN 5 MG TABLET PO SCH ×2 (09:33→20:50)
[2023-04-22] MEDS: ISOSORBIDE MONONITRATE 30 MG TABLET PO SCH (09:33)
[2023-04-22] MEDS: ENOXAPARIN 40 MG/0.4 ML SYRINGE SC SCH ×2 (09:34→20:51)
[2023-04-22] MEDS: FUROSEMIDE 40 MG TABLET PO SCH (09:34)
[2023-04-22] MEDS: AMIODARONE 200 MG TABLET PO SCH (09:34)
[2023-04-22] MEDS: inSUlin DETERMIR 1 UNIT/0.01 ML (CHARGE PER UNIT) SQ SCH ×2 (09:35→20:51)
[2023-04-22] MEDS: SENNA W/DOCUSATE TABLET PO SCH ×2 (09:45→21:42)
[2023-04-22] MEDS: DOCUSATE SODIUM 100 MG CAPSULE PO SCH ×2 (09:45→20:51)
[2023-04-22] MEDS: NYSTATIN OINTMENT 30 GM TUBE TOP SCH ×2 (09:48→20:52)
[2023-04-22] MEDS: SENNOSIDES 8.6 MG (SENOKOT) TAB PO SCH ×2 (09:48→21:00)
--- NOTE | 2023-04-22 10:48 | Physical Therapy Daily Note ---
PT Daily Note-Current Subjective Pt sitting in recliner upon arrival. Pt agrees to PT. Pain Location: No Pain Reported Section J - Health Conditions 1. Rarely or not at all 2. Occasionally 3. Frequently 4. Almost constantly 8. Unable to answer Pain Effect on Sleep: 1 Pain Interference with Therapy: 1 Pain Interference w/Day-to-Day: 1 Mental Status Patient Orientation: Person, Place, Situation Transfers SCALE: Activities may be completed with or without assistive devices. 0-Bqexpgotwi-loqtmdd completes the activity by him/herself with no assistance from a helper. 5-Set-up or Clean-up Assistance-helper sets up or cleans up; patient completes activity. [place] assists only prior to or following the activity. 4-Supervision or Touching Assistance-helper provides verbal cues and/or touching/steadying and/or contact guard assistance as patient completes activity. Assistance may be provided throughout the activity or intermittently. 3-Partial/Moderate Assistance-helper does LESS THAN HALF the effort. [place] lifts, holds or supports trunk or limbs, but provides less than half the effort. 2-Substantial/Maximal Assistance-helper does MORE THAN HALF the effort. [place] lifts or holds trunk or limbs and provides more than half the effort. 0-Dmqyrapnx-upciur does ALL the effort. Patient does none of the effort to complete the activity. Or, the assistance of 2 or more helpers is required for the patient to complete the activity. If activity was not attempted, code reason: 7-Patient Refused. 9-Not Applicable-not attempted and the patient did not perform the activity before the current illness, exacerbation or injury. 10-Not Attempted due to Environmental Limitations-(lack of equipment, weather restraints, etc.). 88-Not Attempted due to Medical Conditions or Safety Concerns. Roll Left & Right (QC): 4 Sit to Lying (QC): 3 Lying to Sitting/Side of Bed(Q: 5 Sit to Stand (QC): 5 Chair/Hqd-tu-Yrwgg Xfer(QC): 5 Toilet Transfer (QC): 5 Car Transfer (QC): 3 Pt does not sleep in bed at home but sleep in recliner. Weight Bearing Right Lower Extremity: Right Full Weight Bearing Left Lower Extremity: Left Full Weight Bearing Gait Training Does the Patient Walk?: Yes Distance: 157' Walk 10 feet (QC): 5 Walk 50 ft with 2 Turns(QC): 5 Walk 150 ft (QC): 5 Walking 10ft/uneven surface-QC: 5 Gait Assistive Device: Walker 4 Wheeled Wheelchair Training Does the Pt Use a Wheelchair?: No Wheel 50 ft with 2 turns (QC): 9 Wheel 150 ft (QC): 9 Stair Training Stair Training: Handrails/: uses walker #of Steps: 1 1 Step (curb) (QC): 3 4 Steps (QC): 88 12 Steps (QC): 9 Stairs: Pattern: Step to Balance Picking up an Object (QC): 5 Special Test Comments Pt uses assistant teacher primary. Exercises Seated Therapy Exercises: Ankle pumps, Long arc quads, Hip flexion, Hamstring Curls, Reaching activity, Hip abd/add, Glut set Seated Reps: 20 Treatments Pt completes Seated EX as well as QC scoring items listed above. Pt returns to room at end of tx to rest in recliner. All needs met, call light in hand. Assessment Current Status: Fair Progress Pt fatigues easily and needs encouragement to push self. Pt is anxious about trying steps. Pt is capable of completing more than pt's believes she can complete. PT Half-Way Goals Prepress Supervisor Goals PT Half-Way Goals Time Frame: Apr 30, 2023 Roll Left & Right (QC): 6 (Pt will be Mod I with functional mobility to safely return home with family ) Sit to Lying (QC): 6 (Pt will be Mod I with functional mobility to safely return home with family ) Lying-Sitting on Side/Bed(QC): 6 (Pt will be Mod I with functional mobility to safely return home with family ) Sit to Stand (QC): 6 (Pt will be Mod I with functional mobility to safely return home with family ) Chair/Amf-no-Ijsbj Xfer(QC): 6 (Pt will be Mod I with functional mobility to safely return home with family ) Toilet Transfer (QC): 6 (Pt will be Mod I with functional mobility to safely return home with family ) Car Transfer (QC): 6 (Pt will be Mod I with functional mobility to safely return home with family ) Does the Patient Walk: Yes Walk 10 feet (QC): 6 (Pt will be Mod I with functional mobility to safely return home with family ) Walk 50ft with 2 Turns (QC): 6 (Pt will be Mod I with functional mobility to safely return home with family ) Walk 150 ft (QC): 6 (Pt will be Mod I with functional mobility to safely return home with family ) Walking 10ft on Uneven Surface: 6 (Pt will be Mod I with functional mobility to safely return home with family ) 1 Step (curb) (QC): 6 (Pt will be Mod I with functional mobility to safely return home with family ) 4 Steps (QC): 6 (Pt will be Mod I with functional mobility to safely return home with family ) 12 Steps (QC): 9 Picking up an Object (QC): 6 (Pt will be Mod I with functional mobility to safely return home with family ) Does the Pt use WC or Scooter?: No Wheel 50 feet with 2 turns (QC: 9 Type: N/A Wheel 150 feet: 9 Type: N/A PT Plan Problem List Problem List: Activity Tolerance, Functional Strength Treatment/Plan Treatment Plan: Continue Plan of Care Treatment Plan: Bed Mobility, Concurrent Therapy, Education, Functional Activity Timothy, Functional Strength, Group Therapy, Gait, Safety, Therapeutic Exercise, Transfers Treatment Duration: Apr 30, 2023 Frequency: At least 5 of 7 days/Wk (IRF) Estimated Hrs Per Day: 1.5 hours per day Patient and/or Family Agrees t: Yes Safety Risks/Education Patient Education: Steps, Correct Positioning, Safety Issues Teaching Recipient: Patient Teaching Methods: Discussion Response to Teaching: Verbalize Understanding Time Time In: 0800 Time Out: 0900 DATE: Apr 22, 2023 Total Billed Treatment Time: 60 Total Billed Treatment 1, GT (20m) & FA x3 (40m) ALYSSA MCKINLEY SPANISH TEACHER Apr 22, 2023 10:48
--- NOTE | 2023-04-22 10:51 | Occupational Ther Daily Note ---
OT Current Status-Daily Note Subjective Pt agrees to therapy. Pt c/o fatigue. Pt on O2 at 2L when FU entered room. Pt agrees to therapy. Mental Status/Objective Patient Orientation: Person, Place, Time, Situation Attachments: Oxygen ADL-Treatment Pt declines shower stating that she takes sponge bath at home because she cannot step into tub. Educated pt on tub transfer bench, pt states there is not enough room in bathroom. Independent using 4WW to gather clothing. Independent with toileting using BSC and 4WW. Sitting at sink, pt able to complete sponge bath and oral care independently. Independent with UBD and LBD. Pt is able to don/doff socks by self. Pt requires multiple lengthy recovery breaks throughout session. Pt requires mod A for EOB to supine with B LE's. After session, pt lying in bed with call light/phone in reach. All needs met in room. Therapy Code Descriptions/Definitions Functional [place] Measure: 0=Not Assessed/NA 4=Minimal Assistance 1=Total Assistance 5=Supervision or Setup 2=Maximal Assistance 6=Modified [place] 3=Moderate Assistance 7=Complete IndependenceSCALE: Activities may be completed with or without assistive devices. 6-Seheftunhz-majtchk completes the activity by him/herself with no assistance from a helper. 5-Set-up or Clean-up Assistance-helper sets up or cleans up; patient completes activity. [place] assists only prior to or following the activity. 4-Supervision or Touching Assistance-helper provides verbal cues and/or touching/steadying and/or contact guard assistance as patient completes activi ty. Assistance may be provided throughout the activity or intermittently. 3-Partial/Moderate Assistance-helper does LESS THAN HALF the effort. [place] lifts, holds or supports trunk or limbs, but provides less than half the effort. 2-Substantial/Maximal Assistance-helper does MORE THAN HALF the effort. [place] lifts or holds trunk or limbs and provides more than half the effort. 4-Jxxkouheh-donboj does ALL the effort. Patient does none of the effort to complete the activity. Or, the assistance of 2 or more helpers is required for the patient to complete the activity. If activity was not attempted, code reason: 7-Patient Refused. 9-Not Applicable-not attempted and the patient did not perform the activity before the current illness, exacerbation or injury. 10-Not Attempted due to Environmental Limitations-(lack of equipment, weather restraints, etc.). 88-Not Attempted due to Medical Conditions or Safety Concerns. Eating (QC): 6 Oral Hygiene (QC): 6 Shower/Bathe Self (QC): 6 Upper Body Dressing (QC): 6 Lower Body Dressing (QC): 6 On/Off Footwear: 6 (Using figure 4 technique) Toileting Hygiene (QC): 6 Toilet Transfer (QC): 6 BIMS CAM BIMS Expression of Ideas and Wants: Without Difficulty Understanding Verbal Content: Understands Brief Interview/Mental Status: Yes IRF CHIDI BIMS: IRF CHIDI BIMS Response (Comments) Value Repitition of Three Words Three 3 Recalls Socks Yes, No Cue Required 2 Recalls Blue Yes, No Cue Required 2 Recalls Bed Yes, After Cueing 1 Year Correct 3 Month Accurate Within 5 Days 2 Day Correct 1 Total 14 Patient Normally Able to Recal: Current Session, Location of own room, Staff Names and faces, That he/she in a [facility] CAM Mental Status Change/Baseline: 0 Inattention: 0 Disorganized thinkin Altered level of consciousness: 0 OT Short Term Goals Short Term Goals Time Frame: Apr 20, 2023 Oral hygiene: 5 (standing) Toileting hygiene: 5 Putting on/taking off footwear: 5 OT Snf Goals Snf Goals Acute change in mental status: 0 Inattention: 0 Disorganized thinkin Altered level of consciousness: 0 Eating (QC): 6 (met) Oral Hygiene (QC): 6 (met) Toileting Hygiene (QC): 6 (met) Shower/Bathe Self (QC): 6 (met) Upper Body Dressing (QC): 6 (met) Lower Body Dressing (QC): 6 (met) On/Off Footwear (QC): 6 (met) 1=Demonstrate adherence to instructed precautions during ADL tasks. 2=Patient will verbalize/demonstrate understanding of assistive devices/modifications for ADL. 3=Patient will improve strength/tolerance for activity to enable patient to perform ADL's. OT Education/Plan Problem List/Assessment Assessment: Decreased Activ Tolerance, Decreased UE Strength, Impaired Bed Mobility, Impaired Self-Care Skills, Restricted Funct UE ROM Discharge Recommendations Plan/Recommendations: Continue POC Treatment Plan/Plan of Care Patient would benefit from OT for education, treatment and training to promote independence in ADL's, mobility, safety and/or upper extremity function for ADL's. Plan of Care: ADL Retraining, Concurrent Therapy, Functional Mobility, Group Exercise/Act as Ind, Visual/Perceptual Retrain Treatment Duration: Apr 22, 2023 Frequency: Modified Program (IRF) (75 [id number]) Estimated Hrs Per Day: Other (75 [id number]) Agreement: Yes Rehab Potential: Good Time Start Time: 09:30 Stop Time: 11:00 DATE: Apr 22, 2023 Total Time Billed (hr/min): 90 Billed Treatment Time 1 visit-ADL 5 (70 min) FA 1 (20 min) YAMEL HUNG Apr 22, 2023 10:50
--- NOTE | 2023-04-22 13:33 | Diagnostic Imaging Report ---
INDICATION: Hospitalized patient, hypoxia. TECHNIQUE: Single-view chest at 01:13 p.m. CORRELATION STUDY: 04/14/2023. FINDINGS: Heart size is enlarged but stable. There is presence pulmonary vascular congestion and perihilar edema, appearing perhaps slightly increased from prior. Perihilar and particularly basilar opacities along with interstitial prominence favor edema. Superimposed infiltrate/pneumonia is not excluded. A right sided IJ Nlcyqy-F-Svyh catheter tip over the right atrium, unchanged. Surgical clips in the left axilla, stable. IMPRESSION: 1. Continued and likely slightly progressive severity of edema with pulmonary opacities favoring edema as well. Superimposed infiltrate not excluded. Dictated by: Dictated on workstation # [id number]
--- NOTE | 2023-04-22 14:22 | Physical Therapy Daily Note ---
PT Daily Note-Current Subjective Pt sitting up in bed upon arrival. Pt is now wearing O2 but wasn't in morning tx. Per Nurse, O2 was 79% so pt was back on O2. Pain Location: No Pain Reported Section J - Health Conditions 1. Rarely or not at all 2. Occasionally 3. Frequently 4. Almost constantly 8. Unable to answer Pain Effect on Sleep: 1 Pain Interference with Therapy: 1 Pain Interference w/Day-to-Day: 1 Mental Status Patient Orientation: Person, Place, Situation Attachments: Oxygen Transfers SCALE: Activities may be completed with or without assistive devices. 1-Yqflownzpd-eqvqjoc completes the activity by him/herself with no assistance from a helper. 5-Set-up or Clean-up Assistance-helper sets up or cleans up; patient completes activity. [place] assists only prior to or following the activity. 4-Supervision or Touching Assistance-helper provides verbal cues and/or touching/steadying and/or contact guard assistance as patient completes activity. Assistance may be provided throughout the activity or intermittently. 3-Partial/Moderate Assistance-helper does LESS THAN HALF the effort. [place] lifts, holds or supports trunk or limbs, but provides less than half the effort. 2-Substantial/Maximal Assistance-helper does MORE THAN HALF the effort. [place] lifts or holds trunk or limbs and provides more than half the effort. 1-Atjboszaw-cmuods does ALL the effort. Patient does none of the effort to c omplete the activity. Or, the assistance of 2 or more helpers is required for the patient to complete the activity. If activity was not attempted, code reason: 7-Patient Refused. 9-Not Applicable-not attempted and the patient did not perform the activity before the current illness, exacerbation or injury. 10-Not Attempted due to Environmental Limitations-(lack of equipment, weather restraints, etc.). 88-Not Attempted due to Medical Conditions or Safety Concerns. Weight Bearing Right Lower Extremity: Right Full Weight Bearing Left Lower Extremity: Left Full Weight Bearing Exercises Supine Ex: Ankle pumps, Quad Set, Glut sets, Heel Slides, Short Arc Quads, Hip abd/add Supine Reps: 10 Treatments After observing pt now on O2, CONTINUOUS IMPROVEMENT COACH visits w/Nurse who confirms pt was 79% O2 so O2 was donned again. Pt completes Supine Ex as pt reports fatigued this afternoon. Pt rests at end of tx. All needs met, call light in hand. Assessment Current Status: Fair Progress Pt more fatigued this afternoon than morning tx. PT Jail Goals Practical Ministries Professor Goals PT Practical Ministries Professor Goals Time Frame: Apr 30, 2023 Roll Left & Right (QC): 6 (Pt will be Mod I with functional mobility to safely return home with family ) Sit to Lying (QC): 6 (Pt will be Mod I with functional mobility to safely return home with family ) Lying-Sitting on Side/Bed(QC): 6 (Pt will be Mod I with functional mobility to safely return home with family ) Sit to Stand (QC): 6 (Pt will be Mod I with functional mobility to safely return home with family ) Chair/Pmh-jc-Vxeau Xfer(QC): 6 (Pt will be Mod I with functional mobility to sa cody return home with family ) Toilet Transfer (QC): 6 (Pt will be Mod I with functional mobility to safely return home with family ) Car Transfer (QC): 6 (Pt will be Mod I with functional mobility to safely retu rn home with family ) Does the Patient Walk: Yes Walk 10 feet (QC): 6 (Pt will be Mod I with functional mobility to safely return home with family ) Walk 50ft with 2 Turns (QC): 6 (Pt will be Mod I with functional mobility to safely return home with family ) Walk 150 ft (QC): 6 (Pt will be Mod I with functional mobility to safely return home with family ) Walking 10ft on Uneven Surface: 6 (Pt will be Mod I with functional mobility to safely return home with family ) 1 Step (curb) (QC): 6 (Pt will be Mod I with functional mobility to safely return home with family ) 4 Steps (QC): 6 (Pt will be Mod I with functional mobility to safely return home with family ) 12 Steps (QC): 9 Picking up an Object (QC): 6 (Pt will be Mod I with functional mobility to safely return home with family ) Does the Pt use WC or Scooter?: No Wheel 50 feet with 2 turns (QC: 9 Type: N/A Wheel 150 feet: 9 Type: N/A PT Plan Problem List Problem List: Activity Tolerance, Functional Strength Treatment/Plan Treatment Plan: Continue Plan of Care Treatment Plan: Bed Mobility, Concurrent Therapy, Education, Functional Activity [place], Functional Strength, Group Therapy, Gait, Safety, Therapeutic Exercise, Transfers Treatment Duration: Apr 30, 2023 Frequency: At least 5 of 7 days/Wk (IRF) Estimated Hrs Per Day: 1.5 hours per day Patient and/or Family Agrees t: Yes Safety Risks/Education Patient Education: Correct Positioning Teaching Recipient: Patient Teaching Methods: Discussion Response to Teaching: Verbalize Understanding Time Time In: 1330 Time Out: 1400 DATE: Apr 22, 2023 Total Billed Treatment Time: 30 Total Billed Treatment 1, FA (10m) & EX (20m) ALYSSA MCKINLEY CONTINUOUS IMPROVEMENT COACH Apr 22, 2023 14:22
[2023-04-22 14:43] LABS: BASOPHILS % (AUTO) 0 % (0-10); EOSINOPHILS # (AUTO) 0.1 10^3/uL (0.0-0.3); EOSINOPHILS % (AUTO) 3 % (0-10); HEMATOCRIT 27 % (35-52); HEMOGLOBIN 8.1 g/dL (11.5-16.0); LYMPHOCYTES # (AUTO) 0.6 10^3/uL (1.0-4.0); LYMPHOCYTES % (AUTO) 13 % (12-44); MEAN CORPUSCULAR HEMOGLOBIN 27 pg (25-34); MEAN CORPUSCULAR HGB CONC 31 g/dL (32-36); MEAN CORPUSCULAR VOLUME 88 fL (80-99); MEAN PLATELET VOLUME 9.3 fL (9.0-12.2); MONOCYTES # (AUTO) 0.4 10^3/uL (0.0-1.0); MONOCYTES % (AUTO) 9 % (0-12); NEUTROPHILS # (AUTO) 3.1 10^3/uL (1.8-7.8); NEUTROPHILS % (AUTO) 74 % (42-75); PLATELET COUNT 155 10^3/uL (130-400); WHITE BLOOD COUNT 4.2 10^3/uL (4.3-11.0)
[2023-04-22 15:05] LABS: ALBUMIN 3.4 GM/DL (3.2-4.5); BILIRUBIN,TOTAL 0.9 MG/DL (0.1-1.0); CALCIUM 8.7 MG/DL (8.5-10.1); CREATININE SERUM 1.42 MG/DL (0.60-1.30); POTASSIUM 4.4 MMOL/L (3.6-5.0); TOTAL PROTEIN 5.5 GM/DL (6.4-8.2)
[2023-04-22 19:23] VITALS: BP 99/51
[2023-04-22] MEDS ORDERED: CARV12.53 PO (20:28)
[2023-04-22] MEDS ORDERED: CYAN-41 PO (20:28)
[2023-04-22] MEDS ORDERED: LOSA25TA41 PO (20:28)
[2023-04-22] MEDS ORDERED: NYST15OI13 TOP (20:28)
[2023-04-22] MEDS ORDERED: SPIR25TA5 PO (20:28)
[2023-04-22] MEDS ORDERED: AMIO200T65 PO (20:28)
[2023-04-22 20:49] VITALS: BP 118/62
[2023-04-23] MEDS: ACETAMINOPHEN 325 MG TABLET PO PRN (02:03)
--- NOTE | 2023-04-23 04:52 | Discharge Summary ---
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 h/o GIB Anemia of chronic disease Leukopenia B12 def Iron def Plan: Wean O2 slowly PT OT Home meds Monitor volume overload 04/17/2023: Monitor hgb Monitor BP Wean O2 04/18/2023: Wean O2 Needs night time O2 study before DC Needs sleep study 04/19/2023: B12 supplement Venofer 04/20/2023: Sleep study scheduled Iron and B12 supplement 04/21/2023: Monitor closely Overnight O2 study 04/22/2023: Check labs and chest x-ray Monitor closely (1) Myopathy (2) Obesity Status: Chronic (3) T2DM (type 2 diabetes mellitus) Status: Acute (4) HTN (hypertension) Status: Acute (5) Respiratory failure Status: Acute (6) Pulmonary edema Status: Acute (7) History of diverticulosis Status: Acute (8) GERD (gastroesophageal reflux disease) Status: Chronic (9) Lymphoma Discharge Summary Discharge Physical Examination Allergies: Coded Allergies: [id number] Reductase Inhibitor (Unverified Allergy, Mild, MUSCLE PAIN, 03/09/18) adhesive (Unverified Allergy, Unknown, 03/09/18) lisinopril (Unverified Adverse Reaction, Mild, COUGH, 03/09/18) Vitals & I&Os Vital Signs Date Time Temp Pulse Resp B/P (MAP) Pulse Ox O2 Delivery O2 Flow Rate FiO2 04/23/23 12:34 36.1 81 18 120/56 97 Room Air 2.00 04/20/23 19:17 18 General Appearance: Alert, Oriented X3, Cooperative Respiratory: Clear to Auscultation Cardiovascular: Regular Rate Psych/Mental Status: Mental Status NL Hospital Course Was the Problem List Reviewed?: Yes Patient had an uneventful hospital course after she was moved from cardiac stepdown unit inpatient rehab after volume overload congestive heart failure managed by cardiology with diuretics. Patient recovered very quickly and weaned off O2 except for night time. PT OT provided aggressive therapy and patient was able to regain near baseline function. Labs remained stable vitals remained stable and patient ultimately was able to go home and was not interested in home health. Labs (last 24 hrs) Laboratory Tests 04/16/23 20:44: Glucometer 231H 04/17/23 05:54: Sodium Level 138, Potassium Level 4.1, Chloride Level 103, Carbon Dioxide Level 29, Anion Gap 6, Blood Urea Nitrogen 29H, Creatinine 1.30, Estimat Glomerular Filtration Rate 41, BUN/Creatinine Ratio 22, Glucose Level 134H, Calcium Level 8.3L, Corrected Calcium 9.1, Total Bilirubin 0.4, Aspartate Amino Transf (AST/SGOT) 15, Alanine Aminotransferase (ALT/SGPT) 16, Alkaline Phosphatase 72, Total Protein 5.1L, Albumin 3.0L 04/17/23 08:38: White Blood Count 2.9L, Red Blood Count 3.44L, Hemoglobin 9.3L, Hematocrit 30L, Mean Corpuscular Volume 88, Mean Corpuscular Hemoglobin 27, Mean Corpuscular Hemoglobin Concent 31L, Red Cell Distribution Width 21.2H, Platelet Count 139, Mean Platelet Volume 9.5, Immature Granulocyte % (Auto) 1, Neutrophils (%) (Auto ) 62, Lymphocytes (%) (Auto) 16, Monocytes (%) (Auto) 9, Eosinophils (%) (Auto) 12H, Basophils (%) (Auto) 1, Neutrophils # (Auto) 1.8, Lymphocytes # (Auto) 0.5L , Monocytes # (Auto) 0.3, Eosinophils # (Auto) 0.4H, Basophils # (Auto) 0.0, Immature Granulocyte # (Auto) 0.0, Neutrophils % (Manual) 72, Lymphocytes % (Manual) 14, Monocytes % (Manual) 7, Eosinophils % (Manual) 6, Basophils % (Manual) 1, Percent Immature Platelet Fraction 1.7, Polychromasia SLIGHT, Anisocytosis MARKED 04/17/23 10:51: Glucometer 221H 04/17/23 15:34: Glucometer 268H 04/17/23 20:17: Glucometer 293H 04/18/23 06:49: Glucometer 134H 04/18/23 07:10: Iron Level 32L, Vitamin B12 Level 293 04/18/23 11:11: Glucometer 164H 04/18/23 15:27: Glucometer 167H 04/18/23 20:49: Glucometer 210H 04/19/23 06:28: Glucometer 87 04/19/23 10:37: Glucometer 117H 04/20/23 06:16: White Blood Count 3.5L, Red Blood Count 3.23L, Hemoglobin 8.8L, Hematocrit 29L, Mean Corpuscular Volume 88, Mean Corpuscular Hemoglobin 27, Mean Corpuscular Hemoglobin Concent 31L, Red Cell Distribution Width 21.4H, Platelet Count 151, Mean Platelet Volume 9.5, Immature Granulocyte % (Auto) 1, Neutrophils (%) (Auto) 64, Lymphocytes (%) (Auto) 18, Monocytes (%) (Auto) 10, Eosinophils (%) (Auto) 7, Basophils (%) (Auto) 0, Neutrophils # (Auto) 2.2, Lymphocytes # (Auto) 0.6L, Monocytes # (Auto) 0.4, Eosinophils # (Auto) 0.3, Basophils # (Auto) 0.0, Immature Granulocyte # (Auto) 0.0, Percent Immature Platelet Fraction 2.2, Sodium Level 137, Potassium Level 4.3, Chloride Level 102, Carbon Dioxide Level 28, Anion Gap 7, Blood Urea Nitrogen 23H, Creatinine 1.38H, Estimat Glomerular Filtration Rate 38, BUN/Creatinine Ratio 17, Glucose Level 151H, Calcium Level 8.9, Corrected Calcium 9.4, Total Bilirubin 0.6, Aspartate Amino Transf (AST/SGOT) 18, Alanine Aminotransferase (ALT/SGPT) 17, Alkaline Phosphatase 86, Total Protein 5.7L, Albumin 3.4 04/22/23 14:30: White Blood Count 4.2L, Red Blood Count 3.01L, Hemoglobin 8.1L, Hematocrit 27L, Mean Corpuscular Volume 88, Mean Corpuscular Hemoglobin 27, Mean Corpuscular Hemoglobin Concent 31L, Red Cell Distribution Width 21.4H, Platelet Count 155, Mean Platelet Volume 9.3, Immature Granulocyte % (Auto) 1, Neutrophils (%) (Auto) 74, Lymphocytes (%) (Auto) 13, Monocytes (%) (Auto) 9, Eosinophils (%) (Auto) 3, Basophils (%) (Auto) 0, Neutrophils # (Auto) 3.1, Lymphocytes # (Auto) 0.6L, Monocytes # (Auto) 0.4, Eosinophils # (Auto) 0.1, Basophils # (Auto) 0.0, Immature Granulocyte # (Auto) 0.0, Sodium Level 135, Potassium Level 4.4, Chloride Level 99, Carbon Dioxide Level 30, Anion Gap 6, Blood Urea Nitrogen 27H , Creatinine 1.42H, Estimat Glomerular Filtration Rate 37, BUN/Creatinine Ratio 19, Glucose Level 300H, Calcium Level 8.7, Corrected Calcium 9.2, Total Bilirubin 0.9, Aspartate Amino Transf (AST/SGOT) 19, Alanine Aminotransferase (ALT/SGPT) 23, Alkaline Phosphatase 92, Total Protein 5.5L, Albumin 3.4 04/22/23 20:41: Glucometer 222H Pending Labs Laboratory Tests 04/16/23 20:44: Glucometer 231 04/17/23 05:54: Sodium Level 138, Potassium Level 4.1, Chloride Level 103, Carbon Dioxide Level 29, Anion Gap 6, Blood Urea Nitrogen 29, Creatinine 1.30, Estimat Glomerular Filtration Rate 41, BUN/Creatinine Ratio 22, Glucose Level 134, Calcium Level 8.3, Corrected Calcium 9.1, Total Bilirubin 0.4, Aspartate Amino Transf ( T/SGOT) 15, Alanine Aminotransferase (ALT/SGPT) 16, Alkaline Phosphatase 72, Total Protein 5.1, Albumin 3.0 04/17/23 08:38: White Blood Count 2.9, Red Blood Count 3.44, Hemoglobin 9.3, Hematocrit 30, Mean Corpuscular Volume 88, Mean Corpuscular Hemoglobin 27, Mean Corpuscular Hemoglobin Concent 31, Red Cell Distribution Width 21.2, Platelet Count 139, Mean Platelet Volume 9.5, Immature Granulocyte % (Auto) 1, Neutrophils (%) (Auto) 62, Lymphocytes (%) (Auto) 16, Monocytes (%) (Auto) 9, Eosinophils (%) (Auto) 12, Basophils (%) (Auto) 1, Neutrophils # (Auto) 1.8, Lymphocytes # (Auto) 0.5, Monocytes # (Auto) 0.3, Eosinophils # (Auto) 0.4, Basophils # (Auto) 0.0, Immature Granulocyte # (Auto) 0.0, Neutrophils % (Manual) 72, Lymphocytes % (Manual) 14, Monocytes % (Manual) 7, Eosinophils % (Manual) 6, Basophils % (Manual) 1, Percent Immature Platelet Fraction 1.7, Polychromasia SLIGHT, Anisocytosis MARKED 04/17/23 10:51: Glucometer 221 04/17/23 15:34: Glucometer 268 04/17/23 20:17: Glucometer 293 04/18/23 06:49: Glucometer 134 04/18/23 07:10: Iron Level 32, Vitamin B12 Level 293 04/18/23 11:11: Glucometer 164 04/18/23 15:27: Glucometer 167 04/18/23 20:49: Glucometer 210 04/19/23 06:28: Glucometer 87 04/19/23 10:37: Glucometer 117 04/20/23 06:16: White Blood Count 3.5, Red Blood Count 3.23, Hemoglobin 8.8, Hematocrit 29, Mean Corpuscular Volume 88, Mean Corpuscular Hemoglobin 27, Mean Corpuscular Hemoglob in Concent 31, Red Cell Distribution Width 21.4, Platelet Count 151, Mean Platelet Volume 9.5, Immature Granulocyte % (Auto) 1, Neutrophils (%) (Auto) 64, Lymphocytes (%) (Auto) 18, Monocytes (%) (Auto) 10, Eosinophils (%) (Auto) 7, Basophils (%) (Auto) 0, Neutrophils # (Auto) 2.2, Lymphocytes # (Auto) 0.6, Monocytes # (Auto) 0.4, Eosinophils # (Auto) 0.3, Basophils # (Auto) 0.0, I mmature Granulocyte # (Auto) 0.0, Percent Immature Platelet Fraction 2.2, Sodium Level 137, Potassium Level 4.3, Chloride Level 102, Carbon Dioxide Level 28, Anion Gap 7, Blood Urea Nitrogen 23, Creatinine 1.38, Estimat Glomerular Filtration Rate 38, BUN/Creatinine Ratio 17, Glucose Level 151, Calcium Level 8.9, Corrected Calcium 9.4, Total Bilirubin 0.6, Aspartate Amino Transf ( T/SGOT) 18, Alanine Aminotransferase (ALT/SGPT) 17, Alkaline Phosphatase 86, Total Protein 5.7, Albumin 3.4 04/22/23 14:30: White Blood Count 4.2, Red Blood Count 3.01, Hemoglobin 8.1, Hematocrit 27, Mean Corpuscular Volume 88, Mean Corpuscular Hemoglobin 27, Mean Corpuscular Hemoglobin Concent 31, Red Cell Distribution Width 21.4, Platelet Count 155, Mean Platelet Volume 9.3, Immature Granulocyte % (Auto) 1, Neutrophils (%) (Auto) 74, Lymphocytes (%) (Auto) 13, Monocytes (%) (Auto) 9, Eosinophils (%) (Auto) 3, Basophils (%) (Auto) 0, Neutrophils # (Auto) 3.1, Lymphocytes # (Auto) 0.6, Monocytes # (Auto) 0.4, Eosinophils # (Auto) 0.1, Basophils # (Auto) 0.0, Immature Granulocyte # (Auto) 0.0, Sodium Level 135, Potassium Level 4.4, Chlori de Level 99, Carbon Dioxide Level 30, Anion Gap 6, Blood Urea Nitrogen 27, Creatinine 1.42, Estimat Glomerular Filtration Rate 37, BUN/Creatinine Ratio 19, Glucose Level 300, Calcium Level 8.7, Corrected Calcium 9.2, Total Bilirubin 0.9, Aspartate Amino Transf (AST/SGOT) 19, Alanine Aminotransferase (ALT/SGPT) 23, Alkaline Phosphatase 92, Total Protein 5.5, Albumin 3.4 04/22/23 20:41: Glucometer 222 Discharge Home Medications: Active Scripts Active Vitamin B-12 (Cyanocobalamin (Vitamin B-12)) 1,000 Mcg Tablet 1,000 Mcg PO DAILY@0700 Nystatin 100,000 Unit/Gram Oint...g. 0 Gm TOP BID twice daily Spironolactone 25 Mg Tablet 25 Mg PO DAILY Losartan Potassium 25 Mg Tablet 25 Mg PO DAILY Carvedilol 12.5 Mg Tablet 25 Mg PO BID Amiodarone HCl 200 Mg Tablet 400 Mg PO DAILY Reported Lidocaine 4 % Cream..g. 1 Applic TP Q12H PRN Aspirin EC (Aspirin) 81 Mg Tablet.dr 81 Mg PO DAILY Furosemide 40 Mg Tablet 40 Mg PO DAILY Omeprazole 20 Mg Tablet.dr 20 Mg PO DAILY Isosorbide Mononitrate ER (Isosorbide Mononitrate) 30 Mg Tab.er.24h 30 Mg PO DAILY Potassium Chloride 20 Meq Tablet.er 10 Meq PO DAILY TAKES OF A 20MEQ Vitamin D3 (Cholecalciferol (Vitamin D3)) 50 Mcg (2000 Unit) Capsule 50 Mcg PO DAILY Diclofenac Sodium 1 % Gel..gram. 1 Applic TOP QID PRN Tylenol Extra Strength (Acetaminophen) 500 Mg Tablet 1,000 Mg PO Q6H PRN TAKES 2 (500MG) TABS Semglee (Yfgn) Pen (Insulin Glargine-Yfgn) 100 Unit/Ml (3 Ml) Insuln.pen 34 Unit SQ BID Praluent Pen (Alirocumab) 75 Mg/Ml Pen.injctr 75 Mg SQ [id number] ON SATURDAYS Loratadine 10 Mg Tablet 10 Mg PO DAILY Levothyroxine Sodium 75 Mcg Tablet 75 Mcg PO DAILY Oxybutynin Chloride ER (Oxybutynin Chloride) 10 Mg Tab.er.24 10 Mg PO DAILY Preservision Areds 2 Softgel (Vit C/E/Zn/Coppr/Lutein/Zeaxan) 250MG-90MG Capsule 1 Each PO BID Instructions to patient/family Please see electronic discharge instructions given to patient. Diagnosis/Problems Diagnosis/Problems (1) Myopathy (2) Obesity Status: Chronic (3) T2DM (type 2 diabetes mellitus) Status: Acute (4) HTN (hypertension) Status: Acute (5) Respiratory failure Status: Acute (6) Pulmonary edema Status: Acute (7) History of diverticulosis Status: Acute (8) GERD (gastroesophageal reflux disease) Status: Chronic (9) Lymphoma MICKEY BLOUNT DO Apr 23, 2023 04:52
[2023-04-23] MEDS: inSUlin ASPART 1 UNIT/0.01 ML (PER UNIT) SC SCH ×2 (06:25→10:57)
[2023-04-23] MEDS: CYANOCOBALAMIN 1,000 MCG TABLET PO SCH (06:25)
[2023-04-23] MEDS: CATHETER FLUSH 10 ML SYR IVP SCH (06:25)
[2023-04-23] MEDS: LEVOTHYROXINE 75 MCG TABLET PO SCH (06:25)
[2023-04-23 08:18] VITALS: BP 120/56
[2023-04-23] MEDS: SENNOSIDES 8.6 MG (SENOKOT) TAB PO SCH (08:28)
[2023-04-23] MEDS: IRON SUCROSE 200 MG/10 ML VIAL IV SCH (08:38)
[2023-04-23] MEDS: ISOSORBIDE MONONITRATE 30 MG TABLET PO SCH (08:38)
[2023-04-23] MEDS: ASPIRIN 81 MG CHEWABLE TABLET PO SCH (08:38)
[2023-04-23] MEDS: inSUlin DETERMIR 1 UNIT/0.01 ML (CHARGE PER UNIT) SQ SCH (08:38)
[2023-04-23] MEDS: carvediloL 12.5 MG TABLET PO SCH (08:38)
[2023-04-23] MEDS: LORATADINE 10 MG TABLET PO SCH (08:38)
[2023-04-23] MEDS: OXYBUTYNIN 5 MG TABLET PO SCH (08:38)
[2023-04-23] MEDS: SPIRONOLACTONE 25 MG (ALDACTONE) TAB PO SCH (08:38)
[2023-04-23] MEDS: FUROSEMIDE 40 MG TABLET PO SCH (08:38)
[2023-04-23] MEDS: DOCUSATE SODIUM 100 MG CAPSULE PO SCH (08:39)
[2023-04-23] MEDS: PANTOPRAZOLE 20 MG TABLET PO SCH (08:39)
[2023-04-23] MEDS: LOSARTAN 25 MG TABLET PO SCH (08:39)
[2023-04-23] MEDS: SENNA W/DOCUSATE TABLET PO SCH (08:40)
[2023-04-23] MEDS: AMIODARONE 200 MG TABLET PO SCH (08:40)
[2023-04-23] MEDS: ENOXAPARIN 40 MG/0.4 ML SYRINGE SC SCH (08:41)
[2023-04-23] MEDS: NYSTATIN OINTMENT 30 GM TUBE TOP SCH (08:47)
--- NOTE | 2023-04-23 11:56 | Therapy Team Discharge Summary ---
Therapy Discharge Summary Discharge Recommendations Date of Discharge 04/23/23 Therapy D/C Recommendations: Home w/ Family Support Physical Therapy 83 y/o female with PMH of HTN, T2DM, HLD, AFib, CHF, CAD, hypothyroidism, NHL, history of recurrent GI bleed, who presented with shortness of breath; Admitted to [facility] 04/13/23 w/ respiratory failure w/ hypoxia; Transferred to [facility] 04/16/23. At [facility], pt was Mod I in the home with a stand-up walker, as well as negotiating stairs/the ramp to enter/exit the home. Upon PT eval, pt was Min A - CGA for all aspects of functional mobility with the FWW. PT focused on B LE strength, endurance, functional mobility, walking, safety/balance, and Ind. Pt progressed well with PT, but is self-limiting at times, which is why she did not met set goals. Pt d/c from [facility] on 04/23/23 to home with family support; pt refused further PT/OT services at this time; D/C from PT at this time. Roll Left to Right (QC): 4 Sit to Lying (QC): 3 Lying to Sitting/Side of Bed(Q: 5 Sit to Stand (QC): 5 Chair/Lis-ar-Lnbvz Xfer(QC): 5 Toilet Transfer (QC): 5 Car Transfer (QC): 3 Does the Patient Walk: Yes Mode of Locomotion: Walk Anticipated Mode of Locomotion: Walk Walk 10 feet (QC): 5 Walk 50 ft with 2 Turns(QC): 5 Walk 150 ft (QC): 5 Walking 10ft on uneven surface: 5 Gait Assistive Device: Walker 4 Wheeled Does the Pt Use a Wheelchair: No Wheel 50 ft with 2 turns (QC): 9 Wheel 150 ft (QC): 9 Type of Wheelchair: N/A #of Steps: 1 1 Step (curb) (QC): 3 4 Steps (QC): 88 12 Steps (QC): 9 Walking Assistive Device: Walker Balance Sitting Static: Good Balance Sitting Dynamic: Good Balance-Standing Static: Fair Picking up an Object (QC): 5 Occupational Therapy Decreased Activ Tolerance, Decreased UE Strength, Impaired Bed Mobility, Impaired Self-Care Skills, Restricted Funct UE ROM Eating (QC): 6 Oral Hygiene (QC): 6 Shower/Bathe Self (QC): 6 Upper Body Dressing (QC): 6 Lower Body Dressing (QC): 6 On/Off Footwear (QC): 6 (Using figure 4 technique) Toileting Hygiene (QC): 6 PT Executive [employer] Chief [employer] Goals Long-Term Goals PT Executive Vice President And Chief Financial Officer Goals Time Frame: Apr 30, 2023 Roll Left to Right (QC): 6 (Pt will be Mod I with functional mobility to safely return home with family ) Sit to Lying (QC): 6 (Pt will be Mod I with functional mobility to safely return home with family ) Lying-Sitting on Side/Bed(QC): 6 (Pt will be Mod I with functional mobility to safely return home with family ) Sit to Stand (QC): 6 (Pt will be Mod I with functional mobility to safely return home with family ) Chair/Atp-im-Nmzya Xfer(QC): 6 (Pt will be Mod I with functional mobility to safely return home with family ) Toilet/Commode Transfer (QC): 6 (Pt will be Mod I with functional mobility to safely return home with family ) Car Transfer (QC): 6 (Pt will be Mod I with functional mobility to safely return home with family ) Does the Patient Walk: Yes Walk 10 feet (QC): 6 (Pt will be Mod I with functional mobility to safely return home with family ) Walk 10ft-Uneven Surface(QC): 6 (Pt will be Mod I with functional mobility to safely return home with family ) Walk 50ft with 2 Turns (QC): 6 (Pt will be Mod I with functional mobility to safely return home with family ) Walk 150 ft (QC): 6 (Pt will be Mod I with functional mobility to safely return home with family ) Does the Pt use WC or Scooter?: No Wheel 50 feet with 2 turns (QC: 9 Type: N/A Wheel 150 feet: 9 Type: N/A 1 Step (curb) (QC): 6 (Pt will be Mod I with functional mobility to safely return home with family ) 4 Steps (QC): 6 (Pt will be Mod I with functional mobility to safely return home with family ) 12 Steps (QC): 9 Picking up an Object (QC): 6 (Pt will be Mod I with functional mobility to safely return home with family ) OT Long-Term Goals Executive Vice President And Chief Financial Officer Goals Acute change in mental status: 0 Inattention: 0 Disorganized thinkin Altered level of consciousness: 0 Eating (QC): 6 (met) Oral Hygiene (QC): 6 (met) Toileting Hygiene (QC): 6 (met) Shower/Bathe Self (QC): 6 (met) Upper Body Dressing (QC): 6 (met) Lower Body Dressing (QC): 6 (met) On/Off Footwear (QC): 6 (met) 1=Demonstrate adherence to instructed precautions during ADL tasks. 2=Patient will verbalize/demonstrate understanding of assistive devices/modifications for ADL. 3=Patient will improve strength/tolerance for activity to enable patient to perform ADL's. FAM WYATT PT Apr 23, 2023 11:56
[2023-04-23 12:34] VITALS: BP 120/56
--- NOTE | 2023-04-24 14:08 | Therapy Team Discharge Summary ---
Therapy Discharge Summary Discharge Recommendations Date of Discharge Apr 23, 2023 at 13:14 Therapy D/C Recommendations: Home w/ Family Support Physical Therapy Roll Left to Right (QC): 4 Sit to Lying (QC): 3 Lying to Sitting/Side of Bed(Q: 5 Sit to Stand (QC): 5 Chair/Wil-uv-Dfjkt Xfer(QC): 5 Toilet Transfer (QC): 5 Car Transfer (QC): 3 Does the Patient Walk: Yes Mode of Locomotion: Walk Anticipated Mode of Locomotion: Walk Walk 10 feet (QC): 5 Walk 50 ft with 2 Turns(QC): 5 Walk 150 ft (QC): 5 Walking 10ft on uneven surface: 5 Gait Assistive Device: Walker 4 Wheeled Does the Pt Use a Wheelchair: No Wheel 50 ft with 2 turns (QC): 9 Wheel 150 ft (QC): 9 Type of Wheelchair: N/A #of Steps: 1 1 Step (curb) (QC): 3 4 Steps (QC): 88 12 Steps (QC): 9 Walking Assistive Device: Walker Balance Sitting Static: Good Balance Sitting Dynamic: Good Balance-Standing Static: Fair Picking up an Object (QC): 5 Occupational Therapy Pt admitted to ARU with myopathy. At [facility], pt needed some assistance with ADLS. Upon initial evaluation, pt was independent with eating, required set up with oral care and UE dressing, CGA-SUP with toileting, min-mod A LE dressing and showering, and max A footwear. OT Tx focused on increasing BUE strength and activity tolerance, and increasing safety and independence with ADLS. Pt made good progress, attaining IND level with all ADLS. Pt discharged from facility, d/c from OT. Decreased Activ Tolerance, Decreased UE Strength, Impaired Bed Mobility, Impaired Self-Care Skills, Restricted Funct UE ROM Eating (QC): 6 Oral Hygiene (QC): 6 Shower/Bathe Self (QC): 6 Upper Body Dressing (QC): 6 Lower Body Dressing (QC): 6 On/Off Footwear (QC): 6 (Using figure 4 technique) Toileting Hygiene (QC): 6 PT [employer] Goals [facility] Goals PT [employer] Goals Time Frame: Apr 30, 2023 Roll Left to Right (QC): 6 (Pt will be Mod I with functional mobility to safely return home with family ) Sit to Lying (QC): 6 (Pt will be Mod I with functional mobility to safely return home with family ) Lying-Sitting on Side/Bed(QC): 6 (Pt will be Mod I with functional mobility to safely return home with family ) Sit to Stand (QC): 6 (Pt will be Mod I with functional mobility to safely return home with family ) Chair/Pis-vn-Msexi Xfer(QC): 6 (Pt will be Mod I with functional mobility to s afely return home with family ) Toilet/Commode Transfer (QC): 6 (Pt will be Mod I with functional mobility to safely return home with family ) Car Transfer (QC): 6 (Pt will be Mod I with functional mobility to safely return home with family ) Does the Patient Walk: Yes Walk 10 feet (QC): 6 (Pt will be Mod I with functional mobility to safely return home with family ) Walk 10ft-Uneven Surface(QC): 6 (Pt will be Mod I with functional mobility to safely return home with family ) Walk 50ft with 2 Turns (QC): 6 (Pt will be Mod I with functional mobility to safely return home with family ) Walk 150 ft (QC): 6 (Pt will be Mod I with functional mobility to safely return home with family ) Does the Pt use WC or Scooter?: No Wheel 50 feet with 2 turns (QC: 9 Type: N/A Wheel 150 feet: 9 Type: N/A 1 Step (curb) (QC): 6 (Pt will be Mod I with functional mobility to safely return home with family ) 4 Steps (QC): 6 (Pt will be Mod I with functional mobility to safely return home with family ) 12 Steps (QC): 9 Picking up an Object (QC): 6 (Pt will be Mod I with functional mobility to safely return home with family ) OT Penitentiary Goals Penitentiary Goals Acute change in mental status: 0 Inattention: 0 Disorganized thinkin Altered level of consciousness: 0 Eating (QC): 6 (met) Oral Hygiene (QC): 6 (met) Toileting Hygiene (QC): 6 (met) Shower/Bathe Self (QC): 6 (met) Upper Body Dressing (QC): 6 (met) Lower Body Dressing (QC): 6 (met) On/Off Footwear (QC): 6 (met) 1=Demonstrate adherence to instructed precautions during ADL tasks. 2=Patient will verbalize/demonstrate understanding of assistive devices/modifications for ADL. 3=Patient will improve strength/tolerance for activity to enable patient to perform ADL's. ANGEL PARK OT Apr 24, 2023 14:07
== END 2023-04-23 13:14 | disposition home or self-care (01) | DRG 91 ==
PROVIDERS: ADMIT Internal Medicine; ATTEND Internal Medicine
DX: G72.81 Critical illness myopathy (principal); I50.33 Acute on chronic diastolic (congestive) heart failure; J96.01 Acute respiratory failure with hypoxia; Z68.41 Body mass index [BMI] 40.0-44.9, adult; C85.90 Non-Hodgkin lymphoma, unspecified, unspecified site; J81.1 Chronic pulmonary edema; E66.2 Morbid (severe) obesity with alveolar hypoventilation; I48.91 Unspecified atrial fibrillation; E11.9 Type 2 diabetes mellitus without complications; E78.5 Hyperlipidemia, unspecified; I25.10 Atherosclerotic heart disease of native coronary artery without angina pectoris; E03.9 Hypothyroidism, unspecified; H35.30 Unspecified macular degeneration; K21.9 Gastro-esophageal reflux disease without esophagitis; D72.819 Decreased white blood cell count, unspecified; I48.0 Paroxysmal atrial fibrillation; I11.0 Hypertensive heart disease with heart failure; D50.9 Iron deficiency anemia, unspecified; E53.8 Deficiency of other specified B group vitamins; Z79.899 Other long term (current) drug therapy; Z85.828 Personal history of other malignant neoplasm of skin; Z91.09 Other allergy status, other than to drugs and biological substances; Z79.4 Long term (current) use of insulin; Z87.19 Personal history of other diseases of the digestive system; Z87.891 Personal history of nicotine dependence; Z28.310 Unvaccinated for COVID-19
CPT/HCPCS: 36415; 71045; 80053; 82607; 82947; 83540; 85007; 85025; 85027; 94760; 94761

== ENCOUNTER 2023-04-23 14:14 | Emergency (ER) | payer MEDICARE, OTHER ==
[~2023-04-23] VITALS: Ht 172.7 cm; Wt 133.0 kg
[~2023-04-23 14:14] MED LIST changes: +CYAN-41 PO; +LOSA25TA41 PO; +NYST15OI13 TOP; +SPIR25TA5 PO
[2023-04-23 14:41] LABS: BASOPHILS % (AUTO) 0 % (0-10); EOSINOPHILS # (AUTO) 0.2 10^3/uL (0.0-0.3); EOSINOPHILS % (AUTO) 8 % (0-10); HEMATOCRIT 28 % (35-52); HEMOGLOBIN 8.4 g/dL (11.5-16.0); LYMPHOCYTES # (AUTO) 0.4 10^3/uL (1.0-4.0); LYMPHOCYTES % (AUTO) 14 % (12-44); MEAN CORPUSCULAR HEMOGLOBIN 27 pg (25-34); MEAN CORPUSCULAR HGB CONC 31 g/dL (32-36); MEAN CORPUSCULAR VOLUME 89 fL (80-99); MEAN PLATELET VOLUME 9.4 fL (9.0-12.2); MONOCYTES # (AUTO) 0.3 10^3/uL (0.0-1.0); MONOCYTES % (AUTO) 9 % (0-12); NEUTROPHILS % (AUTO) 68 % (42-75); PLATELET COUNT 147 10^3/uL (130-400); WHITE BLOOD COUNT 2.9 10^3/uL (4.3-11.0)
--- NOTE | 2023-04-23 14:41 | ED Fall/Injury ---
General Chief Complaint: Trauma-Non Activation Stated Complaint: [facility] Nursing Triage Note: PT TO ED BY EMS WITH C/O FALL. PT REPORTS HER "LEGS GAVE OUT" AND SHE FELL, HITTING HEAD ON THE DOOR FRAME. DENIES LOC, DIZZINESS, OR PAIN AT THIS TIME. PT WAS DC FROM THIS MORNING. Source: patient, old records Exam Limitations: no limitations History of Present Illness Date Seen by Provider: Apr 23, 2023 Time Seen by Provider: 14:22 Initial Comments 83-year-old female that was discharged from rehab today coming in after she had a low velocity fall. She felt like her legs were just giving out, she was able to control herself down to the ground, but the back of her head did hit a door frame. Denies loss of consciousness, no headache, lightheadedness, or any pain anywhere at this time. She denies any acute complaints. Allergies and Home Medications Allergies Coded Allergies: Wnzytun-RNL-BlS Reductase Inhibitor (Unverified Allergy, Mild, MUSCLE PAIN, 03/09/18) adhesive (Unverified Allergy, Unknown, 03/09/18) lisinopril (Unverified Adverse Reaction, Mild, COUGH, 03/09/18) Patient Home Medication List Home Medication List Reviewed: Yes Acetaminophen (Tylenol Extra Strength) 500 Mg Tablet, 1,000 MG PO Q6H PRN for PAIN-MILD (1-4), (Reported) Entered as Reported by: NURA DENNIS on 12/02/22 1210 Alirocumab (Praluent Pen) 75 Mg/Ml Pen.injctr, 75 MG SQ [id number], (Reported) Entered as Reported by: NURA DENNIS on 06/23/22 1430 Amiodarone HCl (Amiodarone HCl) 200 Mg Tablet, 400 MG PO DAILY Prescribed by: MICKEY BLOUNT on 04/22/232027 Aspirin (Aspirin EC) 81 Mg Tablet.dr, 81 MG PO DAILY, (Reported) Entered as Reported by: CRISTIN JEFFREY on 04/13/23 1509 Carvedilol (Carvedilol) 12.5 Mg Tablet, 25 MG PO BID Prescribed by: MICKEY BLOUNT on 04/22/232027 Cholecalciferol (Vitamin D3) (Vitamin D3) 50 Mcg (2000 Unit) Capsule, 50 MCG PO DAILY, (Reported) Entered as Reported by: CRISTIN JEFFREY on 04/13/23 1509 Cyanocobalamin (Vitamin B-12) (Vitamin B-12) 1,000 Mcg Tablet, 1,000 MCG PO DAILY@0700 Prescribed by: MICKEY BLOUNT on 04/22/232027 Diclofenac Sodium (Diclofenac Sodium) 1 % Gel..gram., 1 APPLIC TOP QID PRN for PAIN-BREAKTHROUGH, (Reported) Entered as Reported by: CRISTIN JEFFREY on 12/10/22 1041 Furosemide (Furosemide) 40 Mg Tablet, 40 MG PO DAILY, (Reported) Entered as Reported by: CRISTIN JEFFREY on 04/13/23 1509 Insulin Glargine-Yfgn (Semglee (Yfgn) Pen) 100 Unit/Ml (3 Ml) Insuln.pen, 34 UNIT SQ BID, (Reported) Entered as Reported by: NURA DENNIS on 06/23/22 1432 Isosorbide Mononitrate (Isosorbide Mononitrate ER) 30 Mg Tab.er.24h, 30 MG PO DAILY, (Reported) Entered as Reported by: CRISTIN JEFFREY on 04/13/23 1509 Levothyroxine Sodium (Levothyroxine Sodium) 75 Mcg Tablet, 75 MCG PO DAILY, (Reported) Entered as Reported by: CHRISTIANO LOPEZ on 03/09/18 1438 Lidocaine (Lidocaine) 4 % Cream..g., 1 APPLIC TP Q12H PRN for SHINGLES PAIN, (Reported) Entered as Reported by: CRISTIN JEFFREY on 04/13/23 1511 Loratadine (Loratadine) 10 Mg Tablet, 10 MG PO DAILY, (Reported) Entered as Reported by: CHRISTIANO LOPEZ on 03/09/18 1438 Losartan Potassium (Losartan Potassium) 25 Mg Tablet, 25 MG PO DAILY Prescribed by: MICKEY BLOUNT on 04/22/232027 Nystatin (Nystatin) 100,000 Unit/Gram Oint...g., 0 GM TOP BID Prescribed by: MICKEY BLOUNT on 04/22/232027 Omeprazole (Omeprazole) 20 Mg Tablet.dr, 20 MG PO DAILY, (Reported) Entered as Reported by: CRISTIN JEFFREY on 04/13/23 1509 Oxybutynin Chloride (Oxybutynin Chloride ER) 10 Mg Tab.er.24, 10 MG PO DAILY, (Reported) Entered as Reported by: CHRISTIANO LOPEZ on 10/30/16 125 Potassium Chloride (Potassium Chloride) 20 Meq Tablet.er, 10 MEQ PO DAILY, (Reported) Entered as Reported by: CRISTIN JEFFREY on 04/13/23 1509 Spironolactone (Spironolactone) 25 Mg Tablet, 25 MG PO DAILY Prescribed by: MICKEY BLOUNT on 04/22/232027 Vit C/E/Zn/Coppr/Lutein/Zeaxan (Preservision Areds 2 Softgel) 250MG-90MG Capsule, 1 EACH PO BID, (Reported) Entered as Reported by: CHRISTIANO LOPEZ on 10/30/16 125 Discontinued Medications Amiodarone HCl (Amiodarone HCl) 200 Mg Tablet, 200 MG PO DAILY, (Reported) Entered as Reported by: CRISTIN JEFFREY on 04/13/23 1509 Amlodipine Besylate (Amlodipine Besylate) 5 Mg Tablet, 5 MG PO DAILY, (Reported) Entered as Reported by: CRISTIN JEFFREY on 04/13/23 150 Carvedilol (Carvedilol) 25 Mg Tablet, 12.5 MG PO BID, (Reported) Entered as Reported by: CRISTIN JEFFREY on 04/13/23 150 Losartan Potassium (Losartan Potassium) 50 Mg Tablet, 50 MG PO DAILY, (Reported) Entered as Reported by: CRISTIN JEFFREY on 04/13/23 1509 Review of Systems Review of Systems Constitutional: No fever Eyes: No Symptoms Reported Ears, Nose, Mouth, Throat: no symptoms reported Cardiovascular: no symptoms reported Gastrointestinal: no symptoms reported Genitourinary: no symptoms reported Musculoskeletal: see HPI Past Opulxku-Wiwuwi-Ifixbu Hx Patient Social History Tobacco Use?: No Smoking Status: Former Smoker Use of E-Cig and/or Vaping dev: No Substance use?: No Alcohol Use?: No Pt feels they are or have been: No Immunizations Up To Date Tetanus Booster (TDap): Unknown First/Initial COVID19 Vaccinat: DENIES Seasonal Allergies Seasonal Allergies: Yes (MILD) Past Medical History Surgery/Hospitalization HX: HTN, DM TYPE 2 INSULIN DEPENDENT, MACULAR DEGENERATION, HLD, CHF, CAD, AFIB, GERD, DIVIRTICILITIS, ARTHRITIS, EX SMOKER, NON-HODGKINS LYMPHOMA, STROKE, SHINGLES, BLADDER, CARDIAC, HYSTERECTOMY, TONSILS, ADENOIDS, OOPHORECTOMEY SURGERY. 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 Sexually Transmitted Disease: No HIV/AIDS: No Genitourinary: No Gastrointestinal: Yes Diverticulosis Musculoskeletal: No Arthritis Endocrine: Yes Diabetes, Insulin dep, Hypothyroidsim Loss of Vision: Bilateral Hearing Impairment: Denies Cancer: Yes Skin Did You Recieve Any Treatments: Yes What Type of Treatment Did You: Surgical Intervention Psychosocial: No Integumentary: Yes (Chronic shingles of the left face and scalp, multiple skin cancers removed) Adverse Reaction/Blood Tranf: No (N/A) Family Medical History Cancer 09 SISTER Family history: Diabetes mellitus 03 MOTHER Stroke 03 MOTHER No Pertinent Family Hx Physical Exam Vital Signs Vital Signs - First Documented 04/23/23 14:14 Temp 36.8 Pulse 62 Resp 17 B/P (MAP) 126/54 (78) Pulse Ox 97 O2 Delivery Nasal Cannula O2 Flow Rate 2.00 Capillary Refill : Less Than 3 Seconds Height, Weight, BMI Height: 5'8.00" Weight: 213lbs. 0.0oz. 96.787905hp; 44.00 BMI Method:Stated General Appearance: WD/WN, no apparent distress HEENT: PERRL/EOMI, normal ENT inspection, pharynx normal Neck: non-tender, full range of motion, supple, normal inspection Cardiovascular: other (normal pulses) Respiratory: chest non-tender, lungs clear, normal breath sounds, no respiratory distress, no accessory muscle use Gastrointestinal: normal bowel sounds, non tender, soft; No distended, No guarding, No rebound Back: normal inspection, no CVA tenderness, no vertebral tenderness Extremities: normal range of motion, non-tender, normal inspection, no calf tenderness, normal capillary refill Neurologic/Psychiatric: android architect II-XII nml as tested, no motor/sensory deficits, alert, normal mood/affect, oriented x 3 Skin: normal color, warm/dry Holly Coma Score Best Eye Response: (4) Open Spontaneously Best Verbal Response: (5) Oriented Best Motor Response: (6) Obeys Commands Progress/Results/Core Measures Results/Orders Lab Results Laboratory Tests Test 04/23/23 14:27 Range/Units White Blood Count 2.9 L 4.3-11.0 10^3/uL Red Blood Count 3.10 L 3.80-5.11 10^6/uL Hemoglobin 8.4 L 11.5-16.0 g/dL Hematocrit 28 L 35-52 % Mean Corpuscular Volume 89 80-99 fL Mean Corpuscular Hemoglobin 27 25-34 pg Mean Corpuscular Hemoglobin Concent 31 L 32-36 g/dL Red Cell Distribution Width 21.0 H 10.0-14.5 % Platelet Count 147 130-400 10^3/uL Mean Platelet Volume 9.4 9.0-12.2 fL Immature Granulocyte % (Auto) 1 % Neutrophils (%) (Auto) 68 42-75 % Lymphocytes (%) (Auto) 14 12-44 % Monocytes (%) (Auto) 9 0-12 % Eosinophils (%) (Auto) 8 0-10 % Basophils (%) (Auto) 0 0-10 % Neutrophils # (Auto) 2.0 1.8-7.8 10^3/uL Lymphocytes # (Auto) 0.4 L 1.0-4.0 10^3/uL Monocytes # (Auto) 0.3 0.0-1.0 10^3/uL Eosinophils # (Auto) 0.2 0.0-0.3 10^3/uL Basophils # (Auto) 0.0 0.0-0.1 10^3/uL Immature Granulocyte # (Auto) 0.0 0.0-0.1 10^3/uL Prothrombin Time 14.8 H 12.2-14.7 SEC INR Comment 1.1 0.8-1.4 Activated Partial Thromboplast Time 38 H 24-35 SEC Sodium Level 135 135-145 MMOL/L Potassium Level 4.4 3.6-5.0 MMOL/L Chloride Level 99 98-107 MMOL/L Carbon Dioxide Level 28 21-32 MMOL/L Anion Gap 8 5-14 MMOL/L Blood Urea Nitrogen 28 H 7-18 MG/DL Creatinine 1.39 H 0.60-1.30 MG/DL Estimat Glomerular Filtration Rate 38 BUN/Creatinine Ratio 20 Glucose Level 192 H 70-105 MG/DL Calcium Level 8.9 8.5-10.1 MG/DL Corrected Calcium 9.3 8.5-10.1 MG/DL Total Bilirubin 0.9 0.1-1.0 MG/DL Aspartate Amino Transf (AST/SGOT) 21 5-34 U/L Alanine Aminotransferase (ALT/SGPT) 26 0-55 U/L Alkaline Phosphatase 96 40-136 U/L Total Protein 5.8 L 6.4-8.2 GM/DL Albumin 3.5 3.2-4.5 GM/DL My Orders Orders - ASHLEE MARIE MD Cbc With Automated Diff (04/23/23 14:35) Comprehensive Metabolic Panel (04/23/23 14:35) Protime With Inr (04/23/23 14:35) Partial Thromboplastin Time (04/23/23 14:35) Ct Head/Cervical Spine Wo (04/23/23 14:35) Vital Signs/I&O 04/23/23 14:14 Temp 36.8 Pulse 62 Resp 17 B/P (MAP) 126/54 (78) Pulse Ox 97 O2 Delivery Nasal Cannula O2 Flow Rate 2.00 Blood Pressure Mean: 78 Progress Progress Note : Progress Note 83-year-old female with above history coming in after a ground-level fall. ABCs were intact and vitals are stable on presentation. Physical exam with no acute physical abnormalities. Given her age and since she had her head, CT head and cervical spine ordered and on my interpretation no significant intracranial hemorrhage or cervical spine fracture or dislocation. An IV was placed and basic labs were obtained and were significant for normal white blood cell count, chronic anemia which is stable, chronic CKD which is stable, and normal LFTs. Patient well-appearing and appears to be at her baseline. I believe she stable for discharge with outpatient follow-up. She was sent home with strict return precautions Departure Impression Primary Impression: Fall Qualified Codes: W19.XXXA - Unspecified fall, initial encounter Additional Impression: Closed head injury Qualified Codes: S09.90XA - Unspecified injury of head, initial encounter Disposition: 01 HOME, SELF-CARE Condition: Stable Departure-Patient Inst. Decision time for Depature: 15:45 Referrals: BRITTANIE RAUSCH MD (PCP/Family) Primary Care Physician Patient Instructions: Preventing Falls ED Add. Discharge Instructions: Your labs are reassuring and are at your baseline. Your CT looks good of your head as well. Please follow-up with your regular doctor if you have any new concerns ASHLEE MARIE MD Apr 23, 2023 14:41
[2023-04-23 14:44] LABS: ALBUMIN 3.5 GM/DL (3.2-4.5)
[2023-04-23 14:45] LABS: POTASSIUM 4.4 MMOL/L (3.6-5.0)
[2023-04-23 14:46] LABS: CALCIUM 8.9 MG/DL (8.5-10.1)
[2023-04-23 14:47] LABS: TOTAL PROTEIN 5.8 GM/DL (6.4-8.2)
[2023-04-23 14:49] LABS: BILIRUBIN,TOTAL 0.9 MG/DL (0.1-1.0)
[2023-04-23 14:51] LABS: CREATININE SERUM 1.39 MG/DL (0.60-1.30); INR 1.1 (0.8-1.4); PROTHROMBIN TIME PATIENT 14.8 SEC (12.2-14.7)
--- NOTE | 2023-04-23 15:28 | Diagnostic Imaging Report ---
PROCEDURE: CT head and CT cervical spine without contrast. TECHNIQUE: Multiple contiguous axial images were obtained through the brain and cervical spine without the use of intravenous contrast. Sagittal and coronal reformations through the cervical spine were then performed. Auto Exposure Controls were utilized during the CT exam to meet ALARA standards for radiation dose reduction. INDICATION: Trauma. Head injury. Fall. COMPARISON: None. FINDINGS: CT HEAD: moderate generalized parenchymal volume loss and leukoaraiosis. No intracranial hemorrhage, mass effect, hydrocephalus, or extra-axial fluid collections. No CT evidence of a territorial infarction. Osseous structures are intact. Paranasal sinuses and mastoids are clear. CT CERVICAL SPINE: Normal alignment. Vertebral body heights are preserved. No fractures. Moderate degenerative endplate changes at C6-C7. No CT evidence of high-grade spinal canal stenosis. Incomplete segmentation of C5-C6 (Klippel-Feil). Visualized paravertebral soft tissues are unremarkable. IMPRESSION: No acute intracranial or cervical spine CT findings. Chronic findings as above. Dictated by: Dictated on workstation # [id number]
[2023-04-23 16:18] VITALS: BP 130/68
== END 2023-04-23 16:22 | disposition home or self-care (01) ==
LOC: EDUNIT# 14:14 → ER 14:16
DX: S09.90XA Unspecified injury of head, initial encounter (principal); E11.22 Type 2 diabetes mellitus with diabetic chronic kidney disease; I13.0 Hypertensive heart and chronic kidney disease with heart failure and stage 1 through stage 4 chronic kidney disease, or unspecified chronic kidney disease; N18.9 Chronic kidney disease, unspecified; I50.9 Heart failure, unspecified; Z87.891 Personal history of nicotine dependence; Z79.4 Long term (current) use of insulin; Z28.310 Unvaccinated for COVID-19; W18.30XA Fall on same level, unspecified, initial encounter; W22.8XXA Striking against or struck by other objects, initial encounter
CPT/HCPCS: 36415; 70450; 72125; 80053; 85025; 85610; 85730

== ENCOUNTER 2023-04-27 10:13 | Outpatient (RCR) | payer MEDICARE, OTHER ==
[2023-04-02 13:25] LABS: BASOPHILS % (AUTO) 0 % (0-10); EOSINOPHILS # (AUTO) 0.2 10^3/uL (0.0-0.3); EOSINOPHILS % (AUTO) 9 % (0-10); HEMATOCRIT 32 % (35-52); HEMOGLOBIN 9.3 g/dL (11.5-16.0); LYMPHOCYTES # (AUTO) 0.6 10^3/uL (1.0-4.0); LYMPHOCYTES % (AUTO) 23 % (12-44); MEAN CORPUSCULAR HEMOGLOBIN 26 pg (25-34); MEAN CORPUSCULAR HGB CONC 29 g/dL (32-36); MEAN CORPUSCULAR VOLUME 91 fL (80-99); MEAN PLATELET VOLUME 9.3 fL (9.0-12.2); MONOCYTES # (AUTO) 0.2 10^3/uL (0.0-1.0); MONOCYTES % (AUTO) 9 % (0-12); NEUTROPHILS # (AUTO) 1.4 10^3/uL (1.8-7.8); NEUTROPHILS % (AUTO) 59 % (42-75); PLATELET COUNT 130 10^3/uL (130-400); WHITE BLOOD COUNT 2.5 10^3/uL (4.3-11.0)
[2023-04-02 13:32] LABS: ALBUMIN 3.5 GM/DL (3.2-4.5); POTASSIUM 4.8 MMOL/L (3.6-5.0)
[2023-04-02 13:35] LABS: TOTAL PROTEIN 5.8 GM/DL (6.4-8.2)
[2023-04-02 13:36] LABS: BILIRUBIN,TOTAL 0.5 MG/DL (0.1-1.0)
[2023-04-02 13:38] LABS: CREATININE SERUM 1.41 MG/DL (0.60-1.30)
== END 2023-04-30 | disposition home or self-care (01) ==
LOC: ONC 10:13
PROVIDERS: ATTEND Internal Medicine Hematology & Oncology
DX: Z45.2 Encounter for adjustment and management of vascular access device (principal); C85.10 Unspecified B-cell lymphoma, unspecified site; D72.819 Decreased white blood cell count, unspecified; I10 Essential (primary) hypertension; D64.9 Anemia, unspecified; E78.5 Hyperlipidemia, unspecified; R73.9 Hyperglycemia, unspecified; E66.9 Obesity, unspecified; K21.9 Gastro-esophageal reflux disease without esophagitis; Z79.899 Other long term (current) drug therapy
CPT/HCPCS: 80053; 82728; 83540; 83550; 85025; G0463; 36415; 36591; 99214

== ENCOUNTER 2023-05-11 06:56 | Outpatient (CLI) | payer MEDICARE, OTHER ==
[2023-05-11] VITALS (13 sets, daily range): BP systolic 120–158; BP diastolic 57–77
[~2023-05-11 06:56] MED LIST changes: -DICL100G13 TOP; +DICL100G60 TOP
[2023-05-11] MEDS ORDERED: NS IV 1000 ML 1,000 ML IV STA (07:37)
[2023-05-11] MEDS ORDERED: LIDOCAINE 1% INJ 10 ML VIAL INJ ONE (07:45)
[2023-05-11] MEDS ORDERED: fentaNYL INJECTION 100 MCG/2 ML VIAL IVP ONE (07:45)
[2023-05-11] MEDS ORDERED: MIDAZOLAM INJ 2 MG/2 ML VIAL IVP ONE (07:45)
[2023-05-11 07:53] LABS: ABSOLUTE RETIC # 63 10e9/uL (24-90); BASOPHILS % (AUTO) 0 % (0-10); EOSINOPHILS # (AUTO) 0.3 10^3/uL (0.0-0.3); EOSINOPHILS % (AUTO) 6 % (0-10); HEMATOCRIT 32 % (35-52); HEMOGLOBIN 9.8 g/dL (11.5-16.0); LYMPHOCYTES # (AUTO) 0.8 10^3/uL (1.0-4.0); LYMPHOCYTES % (AUTO) 16 % (12-44); MEAN CORPUSCULAR HEMOGLOBIN 28 pg (25-34); MEAN CORPUSCULAR HGB CONC 31 g/dL (32-36); MEAN CORPUSCULAR VOLUME 92 fL (80-99); MEAN PLATELET VOLUME 9.1 fL (9.0-12.2); MONOCYTES # (AUTO) 0.4 10^3/uL (0.0-1.0); MONOCYTES % (AUTO) 8 % (0-12); NEUTROPHILS # (AUTO) 3.3 10^3/uL (1.8-7.8); NEUTROPHILS % (AUTO) 70 % (42-75); PLATELET COUNT 180 10^3/uL (130-400); WHITE BLOOD COUNT 4.7 10^3/uL (4.3-11.0)
[2023-05-11 08:06] LABS: INR 1.1 (0.8-1.4); PROTHROMBIN TIME PATIENT 14.2 SEC (12.2-14.7)
[2023-05-11 08:42] LABS: BAND NEUTROPHILS 2 %; EOSINOPHILS % (MANUAL) 9 %; LYMPHOCYTES % (MANUAL) 19 %; MONOCYTES % (MANUAL) 7 %; NEUTROPHILS % (MANUAL) 63 %
[2023-05-11 08:43] LABS: ANISOCYTOSIS SLIGHT; ELLIPT/OVALOCYTES SLIGHT; HYPOCHROMASIA SLIGHT; POIKILOCYTOSIS SLIGHT
[2023-05-11 08:44] LABS: POLYCHROMASIA SLIGHT
--- NOTE | 2023-05-11 09:28 | Pre-Op Note & Conscious Sedat ---
Pre-Operative Progress Note Date of Available H&P: May 11, 2023 Date H&P Reviewed: May 11, 2023 Time H&P Reviewed: 08:00 Pre-Op Diagnosis: D64.9 Moderate Sedation PreProcedure Time 08:00 ASA Score 2 Airway Lungs Heart ASA score ASA 1: a normal healthy patient ASA 2: a patient with a mild systemic disease (mid diabetes, controlled hypertension, obesity ASA 3: a patient with a severe systemic disease that limits activity (angina, COPD, prior Myocardial infarction) ASA 4: a patient with an incapacitating disease that is a constant threat to life (CHF, renal failure) ASA 5: a moribund patient not expected to survive 24 hrs. (ruptured aneurysm) ASA 6: a declared brain- patient whose organs are being harvested. For emergent operations, add the letter E after the classification Mallampati Classification Grade 2 Sedation Plan Analgesia, Amnesia, Plan communicated to team members, Discussed options with patient/fam, Discussed risks with patient/fam The patient is an appropriate candidate to undergo the planned procedure, sedation, and anesthesia. The patient immediately re-assessed prior to indication. YAZMIN SOSA MD May 11, 2023 09:28
[2023-05-11] MEDS ORDERED: HYDROcodone/ACETAMINOPHEN 5 MG/325 MG TABLET PO PRN (09:45)
--- NOTE | 2023-05-12 10:42 | Diagnostic Imaging Report ---
INDICATION: Anemia. Patient presents for CT-guided bone marrow aspiration biopsy. One or more of the following dose reduction techniques were utilized: Automated exposure control (AEC), Adjustment of mA and/or kV according to patient size, Use of iterative reconstruction technique such as ASiR, CT scan done according to ALARA and image gently/image wisely. Patient was brought to the CT suite and placed on the table in the prone position. Axial imaging through the pelvis was performed to evaluate appropriate entry site. Low back was then prepped and draped in the usual sterile fashion. Procedure was performed utilizing conscious sedation with radiology nursing and constant patient monitoring. Patient was given a total of 1 mg of Versed intravenously and 50 mcg of fentanyl intravenously. Total procedure time was approximately 13 minutes. Small amount of 1% lidocaine was utilized for local anesthesia. Bone marrow biopsy needle was advanced and placed with its tip along the posterior cortex of the right iliac bone. Needle was advanced to the cortex utilizing a bone marrow drilled. Two bone marrow aspirates were then obtained. Next, bone marrow drill was utilized to obtain a bone marrow core biopsy. Needle was removed and hemostasis was obtained using manual compression. Patient tolerated the procedure well left the department in stable condition. IMPRESSION: Successful CT-guided bone marrow aspiration and core biopsy, utilizing conscious sedation. Pathology results are currently pending. Dictated by: Dictated on workstation # [id number]
== END 2023-05-11 11:35 ==
LOC: SDC 06:56
PROVIDERS: ATTEND Internal Medicine Hematology & Oncology
DX: C82.22 Follicular lymphoma grade III, unspecified, intrathoracic lymph nodes (principal); D50.0 Iron deficiency anemia secondary to blood loss (chronic); E66.9 Obesity, unspecified; R73.9 Hyperglycemia, unspecified; D72.819 Decreased white blood cell count, unspecified; K57.30 Diverticulosis of large intestine without perforation or abscess without bleeding; Z87.891 Personal history of nicotine dependence
CPT/HCPCS: 36415; 38222; 77012; 85007; 85027; 85045; 85055; 85610; 85730; 99156

== ENCOUNTER 2023-07-01 19:31 | Inpatient (IN) | payer MEDICARE, OTHER ==
[~2023-07-01] VITALS: Ht 172 cm; Wt 111.8 kg
[2023-07-01] MEDS ORDERED: methylPREDNISolone INJ 125 MG VIAL ONE (19:41)
[2023-07-01] MEDS ORDERED: RT-Ipratropium/Albuterol NEB 3 ML VIAL INH ONE (19:45)
[2023-07-01] MEDS ORDERED: methylPREDNISolone INJ 125 MG VIAL IVP ONE (19:45)
[2023-07-01 20:00] LABS: BASOPHILS # (AUTO) 0.1 10^3/uL (0.0-0.1); BASOPHILS % (AUTO) 1 % (0-10); EOSINOPHILS # (AUTO) 0.3 10^3/uL (0.0-0.3); EOSINOPHILS % (AUTO) 5 % (0-10); HEMATOCRIT 34 % (35-52); HEMOGLOBIN 9.7 g/dL (11.5-16.0); LYMPHOCYTES # (AUTO) 1.6 10^3/uL (1.0-4.0); LYMPHOCYTES % (AUTO) 24 % (12-44); MEAN CORPUSCULAR HEMOGLOBIN 28 pg (25-34); MEAN CORPUSCULAR HGB CONC 29 g/dL (32-36); MEAN CORPUSCULAR VOLUME 97 fL (80-99); MEAN PLATELET VOLUME 11.2 fL (9.0-12.2); MONOCYTES # (AUTO) 0.3 10^3/uL (0.0-1.0); MONOCYTES % (AUTO) 5 % (0-12); NEUTROPHILS # (AUTO) 4.5 10^3/uL (1.8-7.8); NEUTROPHILS % (AUTO) 66 % (42-75); PLATELET COUNT 233 10^3/uL (130-400); WHITE BLOOD COUNT 6.9 10^3/uL (4.3-11.0)
[2023-07-01] MEDS ORDERED: FUROSEMIDE INJECTION 40 MG/4 ML VIAL IVP ONE (20:00)
[2023-07-01 20:14] LABS: ABG BASE EXCESS -1.2 MMOL/L (-2.5-2.5); ABG OXYGEN SATURATION 100 % (94-100); ABG PCO2 39 MMHG (35-45); ABG PH 7.39 (7.37-7.43); ABG PO2 92 MMHG (79-93); ABG TCO2 24.8 MMOL/L (21.0-31.0)
[2023-07-01 20:15] LABS: VENTILATOR NO
[2023-07-01] MEDS ORDERED: CEFEPIME INJECTION 2,000 MG in NS (IVPB) 50 ML 50 ML IV ONE (20:15)
[2023-07-01 20:22] LABS: ALBUMIN 3.9 GM/DL (3.2-4.5); CHLORIDE 108 MMOL/L (98-107); POTASSIUM 4.5 MMOL/L (3.6-5.0); SODIUM 138 MMOL/L (135-145)
[2023-07-01 20:24] LABS: CALCIUM 9.1 MG/DL (8.5-10.1)
[2023-07-01 20:25] LABS: GLUCOSE 293 MG/DL (70-105); INR 1.1 (0.8-1.4); PROTHROMBIN TIME PATIENT 14.7 SEC (12.2-14.7)
--- NOTE | 2023-07-01 20:25 | ED General ---
General Chief Complaint: Respiratory Problems Stated Complaint: SOA Source of Information: Patient, Old Records Exam Limitations: No Limitations History of Present Illness Date Seen by Provider: Jul 01, 2023 Time Seen by Provider: 19:35 Initial Comments 83-year-old woman presents to the emergency room in respiratory distress. Patient provides some history but has difficulty talking due to her respiratory distress. Son later provides some additional history. Son is Leonides Tompkins ([phone]). Symptoms were of relatively sudden onset this evening. She does have history of heart disease with inoperable small vessel coronary artery disease and reportedly congestive heart failure. Patient denied any chest pain. She has audible wheezing and decreased air movement with oxygen saturation in the high 60s on arrival. She does not report any history of COPD and does not use respiratory treatments. She does use oxygen at night. She has had multiple admissions recently for a variety of issues. She has numerous comorbidities including hypertension, atrial fibrillation, history of GI bleed, CHF, coronary artery disease, and non-Hodgkin's lymphoma followed by Dr. Torres. She has followed with Dr. Sharma for cardiology and sees [facility] in [place] for primary care. She is not anticoagulated for her atrial fibrillation due to recent GI bleed requiring transfusion. Allergies and Home Medications Allergies Coded Allergies: Kazceij-ZOY-AsF Reductase Inhibitor (Verified Allergy, Mild, MUSCLE PAIN, 05/11/23) adhesive (Verified Allergy, Unknown, 05/11/23) lisinopril (Verified Adverse Reaction, Mild, COUGH, 05/11/23) Patient Home Medication List Home Medication List Reviewed: Yes Acetaminophen (Tylenol Extra Strength) 500 Mg Tablet, 1,000 MG PO Q6H PRN for PAIN-MILD (1-4), (Reported) Entered as Reported by: NURA DENNIS on 12/02/22 1210 Alirocumab (Praluent Pen) 75 Mg/Ml Pen.injctr, 75 MG SQ [id number], (Reported) Entered as Reported by: NURA DENNIS on 06/23/22 1430 Amiodarone HCl (Amiodarone HCl) 200 Mg Tablet, 400 MG PO DAILY Prescribed by: MICKEY BLOUNT on 04/22/232027 Aspirin (Aspirin EC) 81 Mg Tablet.dr, 81 MG PO DAILY, (Reported) Entered as Reported by: CRISTIN JEFFREY on 04/13/23 1509 Carvedilol (Carvedilol) 12.5 Mg Tablet, 25 MG PO BID Prescribed by: MICKEY BLOUNT on 04/22/232027 Cholecalciferol (Vitamin D3) (Vitamin D3) 50 Mcg (2000 Unit) Capsule, 50 MCG PO DAILY, (Reported) Entered as Reported by: CRISTIN JEFFREY on 04/13/23 1509 Cyanocobalamin (Vitamin B-12) (Vitamin B-12) 1,000 Mcg Tablet, 1,000 MCG PO DAILY@0700 Prescribed by: MICKEY BLOUNT on 04/22/232027 Diclofenac Sodium (Diclofenac Sodium) 1 % Gel..gram., 1 APPLIC TOP QID PRN for PAIN-BREAKTHROUGH, (Reported) Entered as Reported by: CRISTIN JEFFREY on 12/10/22 1041 Furosemide (Furosemide) 40 Mg Tablet, 40 MG PO DAILY, (Reported) Entered as Reported by: CRISTIN JEFFREY on 04/13/23 1509 Insulin Glargine-Yfgn (Semglee (Yfgn) Pen) 100 Unit/Ml (3 Ml) Insuln.pen, 34 UNIT SQ BID, (Reported) Entered as Reported by: NURA DENNIS on 06/23/22 1432 Isosorbide Mononitrate (Isosorbide Mononitrate ER) 30 Mg Tab.er.24h, 30 MG PO DAILY, (Reported) Entered as Reported by: CRISTIN JEFFREY on 04/13/23 1509 Levothyroxine Sodium (Levothyroxine Sodium) 75 Mcg Tablet, 75 MCG PO DAILY, (Reported) Entered as Reported by: CHRISTIANO LOPEZ on 03/09/18 1438 Lidocaine (Lidocaine) 4 % Cream..g., 1 APPLIC TP Q12H PRN for SHINGLES PAIN, (Reported) Entered as Reported by: CRISTIN JEFFREY on 04/13/23 1511 Loratadine (Loratadine) 10 Mg Tablet, 10 MG PO DAILY, (Reported) Entered as Reported by: CHRISTIANO LOPEZ on 03/09/18 1438 Losartan Potassium (Losartan Potassium) 25 Mg Tablet, 25 MG PO DAILY Prescribed by: MICKEY BLOUNT on 04/22/232027 Nystatin (Nystatin) 100,000 Unit/Gram Oint...g., 0 GM TOP BID Prescribed by: MICKEY BLOUNT on 04/22/232027 Omeprazole (Omeprazole) 20 Mg Tablet.dr, 20 MG PO DAILY, (Reported) Entered as Reported by: CRISTIN JEFFREY on 04/13/23 1509 Oxybutynin Chloride (Oxybutynin Chloride ER) 10 Mg Tab.er.24, 10 MG PO DAILY, (Reported) Entered as Reported by: CHRISTIANO LOPEZ on 10/30/16 125 Potassium Chloride (Potassium Chloride) 20 Meq Tablet.er, 10 MEQ PO DAILY, (Reported) Entered as Reported by: CRISTIN JEFFREY on 04/13/23 150 Spironolactone (Spironolactone) 25 Mg Tablet, 25 MG PO DAILY Prescribed by: MICKEY BLOUNT on 04/22/232027 Vit C/E/Zn/Coppr/Lutein/Zeaxan (Preservision Areds 2 Softgel) 250MG-90MG Capsule, 1 EACH PO BID, (Reported) Entered as Reported by: CHRISTIANO LOPEZ on 10/30/16 1252 Review of Systems Review of Systems Constitutional: no symptoms reported EENTM: no symptoms reported Respiratory: see HPI Cardiovascular: see HPI Gastrointestinal: no symptoms reported Genitourinary: no symptoms reported : No Musculoskeletal: no symptoms reported Skin: other (Recent decubitus ulcers buttock/sacral region) Psychiatric/Neurological: No Symptoms Reported Hematologic/Lymphatic: See HPI (Recent anemia from GI bleed requiring transfusion) Immunological/Allergic: no symptoms reported Past Gwqdufp-Mnyoha-Sinqbh Hx Patient Social History Tobacco Use?: No Immunizations Up To Date Tetanus Booster (TDap): Unknown First/Initial COVID19 Vaccinat: DENIES Second COVID19 Vaccination [place]: DENIES Third COVID19 Vaccination Date: DENIES Seasonal Allergies Seasonal Allergies: Yes (MILD) Past Medical History Surgery/Hospitalization HX: HTN, DM TYPE 2 INSULIN DEPENDENT, MACULAR DEGENERATION, HLD, CHF, CAD, AFIB, GERD, DIVIRTICILITIS, ARTHRITIS, EX SMOKER, NON-HODGKINS LYMPHOMA, STROKE, SHINGLES, BLADDER, CARDIAC, HYSTERECTOMY, TONSILS, ADENOIDS, OOPHORECTOMEY SURGERY. 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 Sexually Transmitted Disease: No HIV/AIDS: No Genitourinary: Yes Renal Failure (Kidney disease) Gastrointestinal: Yes Gastrointestinal Bleed (Requiring transfusion), Diverticulosis Musculoskeletal: Yes Arthritis Endocrine: Yes Diabetes, Insulin dep, Hypothyroidsim Loss of Vision: Bilateral Hearing Impairment: Denies Cancer: Yes Skin, Lymphoma (Hodgkin's lymphoma) Did You Recieve Any Treatments: Yes What Type of Treatment Did You: Surgical Intervention Psychosocial: No Integumentary: Yes (Chronic shingles left face/scalp, skin cancers removed, decub ulcers) Adverse Reaction/Blood Tranf: No (N/A) Family Medical History Cancer 09 SISTER Family history: Diabetes mellitus 03 MOTHER Stroke 03 MOTHER No Pertinent Family Hx Physical Exam-Suspected Sepsis Physical Exam Vital Signs Vital Signs - First Documented 07/01/23 07/01/23 07/01/23 19:31 19:33 23:39 Temp 36.1 Pulse 71 Resp 24 B/P (MAP) 179/89 (119) Pulse Ox 68 O2 Delivery Nasal Cannula O2 Flow Rate 15.00 FiO2 35 Capillary Refill : Height, Weight, BMI Height: 5'8.00" Weight: 213lbs. 0.0oz. 96.963140ti; 44.00 BMI Method:Stated General Appearance: No Apparent Distress HEENT: PERRL/EOMI, Normal ENT Inspection Neck: Normal Inspection; No JVD Respiratory: Crackles (Faint in mid lung), Decreased Breath Sounds (Markedly diminished in bases), Wheezing (Heights throughout) Cardiovascular: Regular Rate, Rhythm, Other (Lower extremity edema) Gastrointestinal: Soft; No Distended Extremity: Swelling, Other (Lower extremity edema) Neurologic/Psychiatric: Alert, Oriented x3 Skin: warm/dry, pallor (Improving with respiratory resuscitation), other (Stage II decubitus ulcers noted on the bilateral buttock by nursing staff and reported to me. Groin inflammation and erythema suggestive of candidiasis.) Focused Exam Sepsis Stage: Severe Sepsis Possible Source: Pulmonary Lactate Level 07/01/23 19:40: Lactic Acid Level 3.51*H 07/01/23 21:43: Lactic Acid Level 0.88 Time of Focused Exam: 20:40 Respiratory: Lungs Clear Cardiovascular: Regular Rate, Rhythm, No Murmur, Other (Marked LE edema) Capillary Refill: Less Than 3 Seconds Peripheral Pulses: 2+ Radial Pulses (L) Skin: normal color, warm/dry Lactic Acid Level Laboratory Tests Test 07/01/23 21:43 Lactic Acid Level 0.88 MMOL/L (0.50-2.00) Within 3hrs of presentation: Admin ABX, Blood cultures prior to ABX's, Focus exam, Lactate level, Other (IVF not administered due to respiratory failure in the context of fluid overload) Progress/Results/Core Measures Suspected Sepsis SIRS Temperature: Pulse: Respiratory Rate: Laboratory Tests 07/01/23 19:40: White Blood Count 6.9 Blood Pressure / Mean: 07/01/23 19:40: Lactic Acid Level 3.51*H 07/01/23 21:43: Lactic Acid Level 0.88 Laboratory Tests 07/01/23 19:40: Creatinine 1.38H, INR Comment 1.1, Platelet Count 233, Total Bilirubin 1.1H Results/Orders Lab Results Laboratory Tests Test 07/01/23 19:40 07/01/23 20:04 07/01/23 20:20 07/01/23 21:43 Range/Units White Blood Count 6.9 4.3-11.0 10^3/uL Red Blood Count 3.45 L 3.80-5.11 10^6/uL Hemoglobin 9.7 L 11.5-16.0 g/dL Hematocrit 34 L 35-52 % Mean Corpuscular Volume 97 80-99 fL Mean Corpuscular Hemoglobin 28 25-34 pg Mean Corpuscular Hemoglobin Concent 29 L 32-36 g/dL Red Cell Distribution Width 18.9 H 10.0-14.5 % Platelet Count 233 130-400 10^3/uL Mean Platelet Volume 11.2 9.0-12.2 fL Immature Granulocyte % (Auto) 0 % Neutrophils (%) (Auto) 66 42-75 % Lymphocytes (%) (Auto) 24 12-44 % Monocytes (%) (Auto) 5 0-12 % Eosinophils (%) (Auto) 5 0-10 % Basophils (%) (Auto) 1 0-10 % Neutrophils # (Auto) 4.5 1.8-7.8 10^3/uL Lymphocytes # (Auto) 1.6 1.0-4.0 10^3/uL Monocytes # (Auto) 0.3 0.0-1.0 10^3/uL Eosinophils # (Auto) 0.3 0.0-0.3 10^3/uL Basophils # (Auto) 0.1 0.0-0.1 10^3/uL Immature Granulocyte # (Auto) 0.0 0.0-0.1 10^3/uL Prothrombin Time 14.7 12.2-14.7 SEC INR Comment 1.1 0.8-1.4 Activated Partial Thromboplast Time 27 24-35 SEC Sodium Level 138 135-145 MMOL/L Potassium Level 4.5 3.6-5.0 MMOL/L Chloride Level 108 H 98-107 MMOL/L Carbon Dioxide Level 17 L 21-32 MMOL/L Anion Gap 13 5-14 MMOL/L Blood Urea Nitrogen 24 H 7-18 MG/DL Creatinine 1.38 H 0.60-1.30 MG/DL Estimat Glomerular Filtration Rate 38 BUN/Creatinine Ratio 17 Glucose Level 293 H 70-105 MG/DL Lactic Acid Level 3.51 *H 0.88 0.50-2.00 MMOL/L Calcium Level 9.1 8.5-10.1 MG/DL Corrected Calcium 9.2 8.5-10.1 MG/DL Magnesium Level 2.2 1.6-2.4 MG/DL Total Bilirubin 1.1 H 0.1-1.0 MG/DL Aspartate Amino Transf (AST/SGOT) 38 H 5-34 U/L Alanine Aminotransferase (ALT/SGPT) 47 0-55 U/L Alkaline Phosphatase 161 H 40-136 U/L Myoglobin 25.5 10.0-92.0 NG/ML Troponin I < 0.028 <0.028 NG/ML C-Reactive Protein High Sensitivity 1.03 H 0.00-0.50 MG/DL B-Type Natriuretic Peptide 831.2 H <100.0 PG/ML Total Protein 7.0 6.4-8.2 GM/DL Albumin 3.9 3.2-4.5 GM/DL Thyroid Stimulating Hormone (TSH) 10.37 H 0.35-4.94 UIU/ML Free Thyroxine 1.10 0.70-1.48 NG/DL Influenza Type A (RT-PCR) Not Detected Not Detecte Influenza Type B (RT-PCR) Not Detected Not Detecte SARS-CoV-2 RNA (RT-PCR) Detected H Not Detecte Arterial Blood pH 7.39 7.37-7.43 Arterial Blood Partial Pressure CO2 39 35-45 MMHG Arterial Blood Partial Pressure O2 92 79-93 MMHG Arterial Blood HCO3 24 23-27 MMOL/L Arterial Blood Total CO2 24.8 21.0-31.0 MMOL/L Arterial Blood Oxygen Saturation 100 94-100 % Arterial Blood Base Excess -1.2 -2.5-2.5 MMOL/L Blood Gas Ventilator Setting NO Blood Gas Inspired Oxygen [id number] Urine Color YELLOW Urine Clarity CLOUDY Urine pH 8.5 5-9 Urine Specific [place] 1.020 1.016-1.022 Urine Protein 2+ H NEGATIVE Urine Glucose (UA) NEGATIVE NEGATIVE Urine Ketones NEGATIVE NEGATIVE Urine Nitrite POSITIVE H NEGATIVE Urine Bilirubin NEGATIVE NEGATIVE Urine Urobilinogen 2.0 < = 1.0 MG/DL Urine Leukocyte Esterase 2+ H NEGATIVE Urine RBC (Auto) TRACE H NEGATIVE Urine RBC 5-10 H /HPF Urine WBC TNTC H /HPF Urine Squamous Epithelial Cells 2-5 /HPF Urine Crystals NONE /LPF Urine Bacteria LARGE H /HPF Urine Casts NONE /LPF Urine Mucus NEGATIVE /LPF Urine Culture Indicated YES My Orders Orders - DAVID GRIMALDO MD Cbc And Automated Diff (07/01/23 19:40) Magnesium (07/01/23 19:40) Chest 1 View, Ap/Pa Only (07/01/23 19:40) Ekg Tracing (07/01/23 19:40) Comprehensive Metabolic Panel (07/01/23 19:40) Myoglobin Serum (07/01/23 19:40) Protime With Inr (07/01/23 19:40) Partial Thromboplastin Time (07/01/23 19:40) O2 (07/01/23 19:40) Monitor-Rhythm Ecg Trace Only (07/01/23 19:40) Lipid Panel (07/02/23 06:00) Ed Iv/Invasive Line Start (07/01/23 19:40) Bnp Johnny (07/01/23 19:40) Troponin I [place] (07/01/23 19:40) Ipratropium/Albuterol Inh Soln (Ipratrop (07/01/23 19:45) Svn Small Volume Nebulizer (07/01/23 19:41) Methylprednisolone Sod Succ (Methylpredn (07/01/23 19:45) Bipap (Bilevel) Set Up (07/01/23 19:42) Hs C Reactive Protein (07/01/23 19:42) Covid 19 Inhouse Test (07/01/23 19:42) Influenza A And B By Pcr (07/01/23 19:42) Methylprednisolone Sod Succ (Methylpredn (07/01/23 19:41) Cole Cath (07/01/23 19:59) Furosemide Injection (Furosemide Injec (07/01/23 20:00) Arterial Blood Gas (07/01/23 20:05) Ua Culture If Indicated (07/01/23 20:11) Thyroid Stimulating Hormone (07/01/23 20:13) Free T4 (Free Thyroxine) (07/01/23 20:13) Blood Culture (07/01/23 20:14) Sputum Culture (07/01/23 20:14) Vital Signs Adult Sepsis Patie Q15M (07/01/23 20:14) Remove Rings In Anticipation O (07/01/23 20:14) Lactic Acid Analyzer (07/01/23 20:14) Cefepime Injection (Cefepime Injection) (07/01/23 20:15) Code/Resuscitation (07/01/23 20:48) Urine Culture (07/01/23 20:20) Medications Given in ED Current Medications Medications Dose Ordered Sig/Williams Route Start Time Stop Time Status Last Admin Dose Admin Albuterol/ Ipratropium 3 ml ONCE ONCE INH 07/01/23 19:45 07/01/23 19:46 DC 07/01/23 20:20 3 ML Cefepime HCl 2000 mg/Sodium Chloride 50 ml @ 100 mls/hr ONCE ONCE IV 07/01/23 20:15 07/01/23 20:44 DC 07/01/23 20:59 100 MLS/HR Furosemide 40 mg ONCE ONCE IVP 07/01/23 20:00 07/01/23 20:01 DC 07/01/23 20:59 40 MG Methylprednisolone Sodium Succinate 125 mg ONCE ONCE IVP 07/01/23 19:45 07/01/23 19:46 DC 07/01/23 19:46 125 MG Vital Signs/I&O 07/01/23 07/01/23 07/01/23 07/01/23 19:31 19:31 19:33 20:14 Temp 36.1 Pulse 71 87 Resp 24 22 B/P (MAP) 179/89 (119) Pulse Ox 68 94 O2 Delivery Nasal Cannula OxyMask O2 Flow Rate 15.00 50.00 07/01/23 07/01/23 07/01/23 07/01/23 21:50 21:54 22:00 22:04 Temp 36.1 35.7 Pulse 62 67 69 Resp 18 24 21 B/P (MAP) 143/71 126/71 (89) Pulse Ox 99 99 O2 Delivery NIV Bilevel NIV Bilevel O2 Flow Rate 50.00 50.00 35.00 07/01/23 07/01/23 07/01/23 07/01/23 22:15 22:22 22:30 22:45 Pulse 68 87 67 67 Resp 30 17 17 B/P (MAP) 148/78 (101) 139/71 (93) 143/73 (96) Pulse Ox 99 94 98 99 O2 Delivery NIV Bilevel NIV Bilevel NIV Bilevel O2 Flow Rate 35.00 35.00 35.00 07/01/23 07/01/23 07/01/23 07/02/23 23:00 23:30 23:39 00:01 Temp 36.0 Pulse 65 65 Resp 17 18 B/P (MAP) 142/76 (98) 144/72 (96) Pulse Ox 98 98 96 O2 Delivery NIV Bilevel NIV Bilevel NIV Bilevel NIV Bilevel O2 Flow Rate 35.00 35.00 35.00 FiO2 35 07/02/23 00:00 Intake Total 50 ml Balance 50 ml Capillary Refill : Progress Note #1: Time: 20:19 Progress Note Patient was interviewed and examined promptly after being roomed. She was found to be in respiratory failure with significant hypoxia. Oxygen saturations were in the high 80s on high flow OxyMask. She had decreased air movement, decreased breath sounds in the bases, and tight wheezing. BiPAP and DuoNeb treatment were promptly ordered. Solu-Medrol 125 mg was also promptly ordered and administered. Chart has been reviewed. Patient has a stated history of CHF, although ejection fraction on her heart cath in November 2022 was noted to be 60%. Patient has significant coronary artery disease. In November CABG was recommended. However, an additional cardiology note in March states inoperable coronary artery disease. Patient denied chest pain during this ER visit. Labs have been obtained, reviewed, and interpreted by me. Chemistries are still pending. CBC demonstrated normal WBC at 6.9. Hemoglobin was 9.7 which is baseline for her. EKG demonstrated some subtle ST depression but no overt ischemic changes. Rhythm is irregular but appears to be sinus with regular P waves. Evaluation of the rhythm on monitor suggest sinus rhythm as well. BiPAP has been initiated which immediately calm to patient's breathing. Her oxygen saturation is now 100% and she is relaxed. X-ray has been reviewed by me and compared to prior. There is definite increase in infiltrate and or edema. There appears to be some patchy infiltrate in the upper lungs suggestive of pneumonia. COVID-19 swab resulted positive. Influenza screen was negative. Cefepime has been ordered for initial treatment of presumed pneumonia. Lasix milligrams IV has been ordered for her fluid overload and hypertension. DuoNeb treatment has been administered. Blood cultures and lactic acid have been obtained. Discussed CODE STATUS with the patient. She declines CPR but will accept intubation if her respiratory failure facilitates that for survival. Progress Note #2: Time: 21:11 Progress Note Patient remains comfortable with relaxed breathing on BiPAP. Oxygen saturations have been 98 to 100%. The remaining labs have been reviewed. Coag panel was negative creatinine was slightly above baseline at 1.38. Troponin was negative. BNP was elevated at 831 suggesting some degree out of congestive failure. CRP was low at 1.03. TSH was elevated at 10.37 but free T4 was normal at 1.10. Lactic acid was high at 3.5. Patient likely has pneumonia based on appearance of chest x-ray. Cefepime was ordered for initial antibiotic therapy. Case has been reviewed with Dr. Blunt, admitting hospitalist. He is in agreement with admission to the ICU. I have also discussed the case [facility] Nursing staff expressed concern about skin erythema and breakdown in the groin region and on the buttocks. She appeared to have some stage II decubitus ulcers on the buttock bilaterally. Mepilex dressing was applied. I have added Diflucan 200 mg orally x1 to the admission orders. ECG Initial ECG Impression Date: Jul 01, 2023 Initial ECG Impression Time: 20:26 Initial ECG Rate: 70 Comment Probable sinus arrhythmia versus sinus rhythm with intermittent atrial fibrillation. Subtle ST depression with no overt ischemic ST elevation or depression. No abnormal intervals or axis deviation. Diagnostic Imaging Diagonstic Imaging: Xray Plain Films/CT/US/NM/MRI: chest Comments NAME: OBDULIA TOMPKINS REC#: [id number] PT STATUS: REG ER : 1940 PHYSICIAN: DAVID GRIMALDO MD ADMIT DATE: 07/01/23/ER Draft Date of Exam:07/01/23 CHEST 1 VIEW, AP/PA ONLY INDICATION: Chest pain COMPARISON: 04/22/2023 TECHNIQUE: Single radiograph of the chest dated 07/01/2023. FINDINGS: Right-sided Port-A-Cath is again identified. The cardiac silhouette is stable. Extensive right greater than left mixed interstitial and airspace opacities are present, worsened from the prior examination. Mild central pulmonary vascular congestion. Trace pleural effusions. No large-volume pleural effusion. No pneumothorax. No acute osseous abnormality. Surgical clips overlying the left axillary region. IMPRESSION: Extensive right greater than left mixed interstitial and airspace opacities, favored to relate to underlying edema though additional superimposed infiltrate not excluded. This does appear worsened from the prior examination from March 2023. Stable right-sided Port-A-Cath. Additional findings as above. Dictated on workstation # [id number] Dict: 07/01/232020 Trans: 07/01/232023 CVB [id number] Interpreted by: MOLLY HOU MD Departure Communication (Admissions) Time/Spoke to Admitting Phy: 20:50 Dr. Blunt Impression Primary Impression: Respiratory failure Qualified Codes: J96.01 - Acute respiratory failure with hypoxia Additional Impressions: COVID-19 Pneumonia Qualified Codes: J18.9 - Pneumonia, unspecified organism Fluid overload Qualified Codes: E87.70 - Fluid overload, unspecified Severe sepsis Decubitus skin ulcer Qualified Codes: L89.302 - Pressure ulcer of unspecified buttock, stage 2 Disposition: ADMITTED INPATIENT Condition: Improved Admissions Decision to Admit Reason: Admit from ER (General) Decision to Admit/Date: Jul 01, 2023 Time/Decision to Admit Time: 20:50 Departure-Patient Inst. Referrals: NO,LOCAL PHYSICIAN (PCP/Family) Primary Care Physician Copy Copies To 1: MAXIM SHARMA MD [facility] DAVID GRIMALDO MD Jul 01, 2023 20:24
[2023-07-01 20:26] LABS: CARBON DIOXIDE 17 MMOL/L (21-32)
[2023-07-01 20:27] LABS: BILIRUBIN,TOTAL 1.1 MG/DL (0.1-1.0)
[2023-07-01 20:28] LABS: ALKALINE PHOSPHATASE 161 U/L (40-136)
[2023-07-01 20:29] LABS: CREATININE SERUM 1.38 MG/DL (0.60-1.30); GFR ESTIMATED 38
[2023-07-01 20:30] LABS: BUN/CREATININE RATIO 17
[2023-07-01 20:31] LABS: ALANINE AMINOTRANSFERASE 47 U/L (0-55)
[2023-07-01 20:32] LABS: MAGNESIUM 2.2 MG/DL (1.6-2.4)
[2023-07-01 20:50] LABS: FREE T4 (FREE THYROXINE) 1.1 NG/DL (0.70-1.48)
[2023-07-01 20:51] LABS: BACTERIA,URINE LARGE /HPF; BILIRUBIN,URINE NEGATIVE (NEGATIVE); CLARITY,URINE CLOUDY; COLOR,URINE YELLOW; GLUCOSE, URINE (UA) NEGATIVE (NEGATIVE); KETONES,URINE NEGATIVE (NEGATIVE); LEUKOCYTE ESTERASE ,URINE 2+ (NEGATIVE); NITRITE,URINE POSITIVE (NEGATIVE); PH,URINE 8.5 (5-9); PROTEIN,URINE 2+ (NEGATIVE); WBC,URINE TNTC /HPF
[2023-07-01] MEDS ORDERED: NS IV 500 ML 500 ML IV PRN (22:00)
[2023-07-01] MEDS ORDERED: EPINEPHrine 1 MG INJECTION 4 MG in NS (IVPB) 250 ML 248 ML IV SCH (22:45)
[2023-07-01] MEDS ORDERED: ACETAMINOPHEN 500 MG TABLET PO PRN (22:45)
[2023-07-01] MEDS ORDERED: ONDANSETRON INJECTION 4 MG/2 ML (SDV) IV PRN (22:45)
[2023-07-01] MEDS: VASOPRESSIN INJECTION 20 UNIT in NS (IVPB) 100 ML 100 ML IV SCH (22:59)
[2023-07-01] MEDS: NOREPINEPHRINE 8 MG/250 ML 250 ML IV SCH (22:59)
[2023-07-02] MEDS ORDERED: RT-Ipratropium/Albuterol NEB 3 ML VIAL INH SCH (02:00)
[2023-07-02] MEDS: RT-ALBUTEROL HFA 8.5 GM INHALER IH SCH ×4 (02:23→18:39)
[2023-07-02 04:11] LABS: BASOPHILS % (AUTO) 0 % (0-10); EOSINOPHILS % (AUTO) 0 % (0-10); HEMATOCRIT 31 % (35-52); HEMOGLOBIN 9.1 g/dL (11.5-16.0); LYMPHOCYTES # (AUTO) 0.5 10^3/uL (1.0-4.0); LYMPHOCYTES % (AUTO) 10 % (12-44); MEAN CORPUSCULAR HEMOGLOBIN 28 pg (25-34); MEAN CORPUSCULAR HGB CONC 30 g/dL (32-36); MEAN CORPUSCULAR VOLUME 94 fL (80-99); MEAN PLATELET VOLUME 10.6 fL (9.0-12.2); MONOCYTES # (AUTO) 0.1 10^3/uL (0.0-1.0); MONOCYTES % (AUTO) 1 % (0-12); NEUTROPHILS # (AUTO) 4.1 10^3/uL (1.8-7.8); NEUTROPHILS % (AUTO) 88 % (42-75); PLATELET COUNT 151 10^3/uL (130-400); WHITE BLOOD COUNT 4.7 10^3/uL (4.3-11.0)
[2023-07-02 04:30] LABS: ALBUMIN 3.6 GM/DL (3.2-4.5); BILIRUBIN,TOTAL 1.2 MG/DL (0.1-1.0); CALCIUM 9.2 MG/DL (8.5-10.1); CREATININE SERUM 1.23 MG/DL (0.60-1.30); MAGNESIUM 1.9 MG/DL (1.6-2.4); POTASSIUM 4.7 MMOL/L (3.6-5.0); TOTAL PROTEIN 6.1 GM/DL (6.4-8.2)
[2023-07-02] MEDS: CEFEPIME 1,000 MG/NS 50 ML IVPB IV SCH ×6 (05:23→22:16)
[2023-07-02] MEDS: inSUlin ASPART 1 UNIT/0.01 ML (PER UNIT) SC SCH ×4 (05:24→22:16)
[2023-07-02] MEDS: CATHETER FLUSH 10 ML SYR IVP SCH ×3 (05:44→22:17)
[2023-07-02] MEDS: POTASSIUM CL 10MEQ/50ML IVPB 50 ML IV SCH (05:44)
[2023-07-02] MEDS: MAGNESIUM 1 GM/100 ML IVPB 100 ML IV SCH (05:44)
[2023-07-02] MEDS: POTASSIUM CHLORIDE 20 MEQ TABLET PO SCH (05:45)
[2023-07-02 07:05] VITALS: BP 113/46
--- NOTE | 2023-07-02 07:56 | Tele-ICU Consult ---
History of Present Illness History of Present Illness Date Seen by Provider: Jul 02, 2023 Time Seen by Provider: 07:51 History of Present Illness eICU Critical Care Consult 83 yo F admitted with cc of SOB. SOB started last night, In ED SpO2 in 60's, CXR showed bilateral congestion with possible PNA, Serology + for Covid. I reviewed CXR from today which looks improved, Given IV Medrol, IV Lasix, IV Cefepime, A lson started on IV Decadron. U/A shows WBC TNTC. 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, HLD, CAD, HTN, A fib, not on OAC, Hx of GIB, DM2, CHF, stage 2 gluteal decub ulcers-skin not broken Allergies and Home Medications Allergies Coded Allergies: Trbktno-YUT-EyO Reductase Inhibitor (Verified Allergy, Mild, MUSCLE PAIN, 05/11/23) adhesive (Verified Allergy, Unknown, 05/11/23) lisinopril (Verified Adverse Reaction, Mild, COUGH, 05/11/23) Home Medications Acetaminophen 500 Mg Tablet, 1,000 MG PO Q6H PRN for PAIN-MILD (1-4), (Reported) TAKES 2 (500MG) TABS Alirocumab 75 Mg/Ml Pen.injctr, 75 MG SQ [id number], (Reported) ON SATURDAYS Amiodarone HCl 200 Mg Tablet, 400 MG PO DAILY Prescribed by: MICKEY BLOUNT on 04/22/232027 Aspirin 81 Mg Tablet.dr, 81 MG PO DAILY, (Reported) Carvedilol 12.5 Mg Tablet, 25 MG PO BID Prescribed by: MICKEY BLOUNT on 04/22/232027 Cholecalciferol (Vitamin D3) 50 Mcg (2000 Unit) Capsule, 50 MCG PO DAILY, (Reported) Cyanocobalamin (Vitamin B-12) 1,000 Mcg Tablet, 1,000 MCG PO DAILY@0700 Prescribed by: MICKEY BLOUNT on 04/22/232027 Diclofenac Sodium 1 % Gel..gram., 1 APPLIC TOP QID PRN for PAIN-BREAKTHROUGH, (Reported) Furosemide 40 Mg Tablet, 40 MG PO DAILY, (Reported) Insulin Glargine-Yfgn 100 Unit/Ml (3 Ml) Insuln.pen, 34 UNIT SQ BID, (Reported) Isosorbide Mononitrate 30 Mg Tab.er.24h, 30 MG PO DAILY, (Reported) Levothyroxine Sodium 75 Mcg Tablet, 75 MCG PO DAILY, (Reported) Lidocaine 4 % Cream..g., 1 APPLIC TP Q12H PRN for SHINGLES PAIN, (Reported) Loratadine 10 Mg Tablet, 10 MG PO DAILY, (Reported) Losartan Potassium 25 Mg Tablet, 25 MG PO DAILY Prescribed by: MICKEY BLOUNT on 04/22/232027 Nystatin 100,000 Unit/Gram Oint...g., 0 GM TOP BID twice daily Prescribed by: MICKEY BLOUNT on 04/22/232027 Omeprazole 20 Mg Tablet.dr, 20 MG PO DAILY, (Reported) Oxybutynin Chloride 10 Mg Tab.er.24, 10 MG PO DAILY, (Reported) Potassium Chloride 20 Meq Tablet.er, 10 MEQ PO DAILY, (Reported) TAKES OF A 20MEQ Spironolactone 25 Mg Tablet, 25 MG PO DAILY Prescribed by: MICKEY BLOUNT on 04/22/232027 Vit C/E/Zn/Coppr/Lutein/Zeaxan 250MG-90MG Capsule, 1 EACH PO BID, (Reported) Past Medical/Social/Family Hx Patient Social History Tobacco Use?: No Smoking Status: Former Smoker Substance use?: No Alcohol Use?: No Immunizations Up To Date Influenza Vaccine Up-to-Date: No; Not Current First/Initial COVID19 Vaccinat: DENIES Second COVID19 Vaccination [place]: DENIES Tetanus Booster (TDap): Unknown Hepatitis A: No Hepatitis B: No TB Skin Test: None Date of Pneumonia Vaccine: Jun 09, 2016 Current Status Communicates: Verbally Primary Language: Latvian Preferred Spoken Language: Latvian Is interpretation needed?: No Review of Systems Constitutional: see HPI EENTM: see HPI Respiratory: see HPI Cardiovascular: see HPI Gastrointestinal: see HPI Genitourinary: see HPI Musculoskeletal: see HPI Skin: see HPI Psychiatric/Neurological: See HPI Focused Exam Lactate Level 07/01/23 19:40: Lactic Acid Level 3.51*H 07/01/23 21:43: Lactic Acid Level 0.88 Height, Weight, BMI Height: 5'8.00" Weight: 213lbs. 0.0oz. 96.187795ab; 40.49 BMI Method:Stated Time of Focused Exam: 20:40 Exam Exam Patient acknowledged, consented, and participated in this virtual visit which was conducted using real time audio/video Vital Signs Date Time Temp Pulse Resp B/P (MAP) Pulse Ox O2 Delivery O2 Flow Rate FiO2 07/02/23 07:22 NIV Bilevel 30.00 07/02/23 07:05 57 24 99 30.00 07/02/23 07:00 66 07/02/23 07:00 49 21 113/46 (68) 99 NIV Bilevel 35.00 07/02/23 06:00 65 138/67 (90) 100 NIV Bilevel 35.00 07/02/23 05:00 61 16 127/59 (81) 99 NIV Bilevel 35.00 07/02/23 04:00 59 129/55 (79) 99 NIV Bilevel 35.00 07/02/23 04:00 96 NIV Bilevel 35 07/02/23 03:41 35.8 NIV Bilevel 35.00 07/02/23 03:00 64 138/68 (91) 99 NIV Bilevel 35.00 07/02/23 02:23 16 99 35.00 07/02/23 02:00 61 16 142/69 (93) 99 NIV Bilevel 35.00 07/02/23 01:00 62 18 144/72 (96) 99 NIV Bilevel 35.00 07/02/23 01:00 64 07/02/23 00:01 36.0 NIV Bilevel 35.00 07/02/23 00:00 63 17 145/71 (95) 98 NIV Bilevel 35.00 07/01/23 23:39 96 NIV Bilevel 35 07/01/23 23:30 65 18 144/72 (96) 98 NIV Bilevel 35.00 07/01/23 23:00 65 17 142/76 (98) 98 NIV Bilevel 35.00 07/01/23 22:45 67 17 143/73 (96) 99 NIV Bilevel 35.00 07/01/23 22:30 67 17 139/71 (93) 98 NIV Bilevel 35.00 07/01/23 22:22 87 94 07/01/23 22:15 68 30 148/78 (101) 99 NIV Bilevel 35.00 07/01/23 22:04 69 07/01/23 22:00 35.7 67 21 126/71 (89) 99 NIV Bilevel 35.00 07/01/23 21:54 24 50.00 07/01/23 21:50 36.1 62 18 143/71 99 NIV Bilevel 50.00 07/01/23 20:14 87 22 94 50.00 07/01/23 19:33 OxyMask 15.00 07/01/23 19:31 Nasal Cannula 07/01/23 19:31 36.1 71 24 179/89 (119) 68 I & O 07/02/23 07:00 Intake Total 50 ml Output Total 3550 ml Balance -3500 ml Height & Weight Height: 5'8.00" Weight: 213lbs. 0.0oz. 96.420127jv; 40.49 BMI Method:Stated General Appearance: No Apparent Distress HEENT: PERRL/EOMI, Normal ENT Inspection Neck: Normal Inspection; No JVD Respiratory: Lungs Clear, Crackles, Decreased Breath Sounds Cardiovascular: Regular Rate, Rhythm, No Murmur, Other (Marked LE edema) Capillary Refill: Less Than 3 Seconds Peripheral Pulses: 2+ Radial Pulses (L) Gastrointestinal: normal bowel sounds, non tender, soft Extremity: No Pedal Edema, Pedal Edema, Swelling, Other (Lower extremity edema, trace) Neurologic/Psychiatric: Alert, Oriented x3 Results Lab Laboratory Tests 07/01/23 19:40 07/02/23 03:30 Assessment/Plan Assessment/Plan CHF, Covid PNA, will continue on IV Decadron, pt does not want Remdesivir Sliding scale for glucose Other problems appear stable Pt is ok with intubation but not chest compressions Critical Care: Critically Ill Patient Time spent with patient (mins): 25 CALEB LOZA MD Jul 02, 2023 07:56
--- NOTE | 2023-07-02 08:12 | History & Physical-Hospitalist ---
LIVIA HOLBROOK 07/02/23 0812: History of Present Illness HPI/Chief Complaint Pt is an 83-year-old woman who presented to the emergency room in respiratory distress last night. Pt able to provide some hx and has son at bedside who also helps. Patient is COVID positive. Reports yesterday evening she had a sudden onset SOB that did not resolve with O2 and continued to worsen. She has a history of heart disease with inoperable small vessel coronary artery disease, CHF. AFib, hypertension, history of GI bleed, diabetes, hypothyroidism, and non-Hodgkin's lymphoma followed by Dr. Torres. She denies having COPD and does not use respiratory treatments. She does use oxygen only at night. She has followed with Dr. Sharma for cardiology and sees the [facility] in [place] for primary care. She is not anticoagulated for her atrial fibrillation due to recent GI bleed requiring transfusion but is taking a baby aspirin. Of note, she also reports herpes zoster rash along her scalp and the L side of her face that is extremely tender to touch. Denies visual changes. Source: patient, family Exam Limitations: clinical condition Date Seen 07/02/23 Time Seen by a Provider: 08:07 Attending Physician No,Local Physician PCP Admitting Physician: Jamal Blunt MD Attending Physician: Jamal Blunt MD Referring Physician Date of Admission Jul 01, 2023 at 21:47 Home Medications & Allergies Home Medications Reviewed patient Home Medication Reconciliation performed by pharmacy medication reconciliations nuclear worker technician and/or nursing. Patients Allergies have been reviewed. Allergies Allergies Coded Allergies Fnrvnnw-NHP-FyG Reductase Inhibitor (Verified Allergy, Mild, MUSCLE PAIN, 05/11/23) adhesive (Verified Allergy, Unknown, 05/11/23) lisinopril (Verified Adverse Reaction, Mild, COUGH, 05/11/23) Past Aollmfv-Gndmko-Elvijo Hx Patient Social History Employed/Student: retired Tobacco Use?: No Smoking Status: Former Smoker Substance use?: No Alcohol Use?: No Immunizations Up To Date Date of Influenza Vaccine: Jun 09, 2016 First/Initial COVID19 Vaccinat: DENIES Second COVID19 Vaccination [place]: DENIES Tetanus Booster (TDap): Unknown Hepatitis A: No Hepatitis B: No Date of Pneumonia Vaccine: Jun 09, 2016 Seasonal Allergies Seasonal Allergies: Yes (MILD) Current Status Communicates: Verbally Primary Language: Telugu Preferred Spoken Language: Telugu Is interpretation needed?: No Past Medical History Surgeries: Abdominal, Adenoidectomy, Bladder Surgery, Cardiac, Hysterectomy, Oophorectomy, Tonsillectomy Chronic Edema/Swelling, Coronary Artery Disease, High Cholesterol, Hypertension Stroke 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 Sexually Transmitted Disease: No HIV/AIDS: No Renal Failure (Kidney disease) Gastrointestinal Bleed (Requiring transfusion), Diverticulosis Arthritis Diabetes, Insulin dep, Hypothyroidsim Loss of Vision: Bilateral Hearing Impairment: Denies Skin, Lymphoma (non-Hodgkin's lymphoma) Did You Recieve Any Treatments: Yes What Type of Treatment Did You: Surgical Intervention Adverse Reaction/Blood Tranf: No (N/A) Family Medical History Cancer 09 SISTER Family history: Diabetes mellitus 03 MOTHER Stroke 03 MOTHER No Pertinent Family Hx Review of Systems Constitutional: No chills, No fever EENTM: No blurred vision, No vision loss Respiratory: No cough; short of breath, wheezing Cardiovascular: chest pain; No palpitations Gastrointestinal: No abdominal pain, No hematemesis Genitourinary: No dysuria, No frequency Musculoskeletal: No muscle weakness, No neck pain Skin: lesions, rash (herpes zoster rash along scalp and along L side of face ) Psychiatric/Neurological: Denies Headache, Denies Paresthesia Physical Exam Physical Exam Vital Signs Vital Signs - First Documented 07/01/23 07/01/23 07/01/23 19:31 19:33 23:39 Temp 36.1 Pulse 71 Resp 24 B/P (MAP) 179/89 (119) Pulse Ox 68 O2 Delivery Nasal Cannula O2 Flow Rate 15.00 FiO2 35 Capillary Refill : Less Than 3 Seconds Height, Weight, BMI Height: 5'8.00" Weight: 213lbs. 0.0oz. 96.555343gx; 40.49 BMI Method:Stated General Appearance: No Apparent Distress, Chronically ill Eyes: Bilateral Eye Normal Inspection HEENT: PERRL/EOMI Neck: Normal Inspection, Non Tender Respiratory: No Accessory Muscle Use, Crackles, Expiration, Wheezing Cardiovascular: Gallop/S3, Irregularly Irregular Gastrointestinal: Non Tender, Soft Neurologic/Psychiatric: Alert, Oriented x3, Normal Mood/Affect Skin: Normal Color, Rash (Herpes zoster rash along scalp and L side of face) Results Results/Procedures Labs Laboratory Tests 07/01/23 19:40 07/02/23 03:30 Patient resulted labs reviewed. Assessment/Plan Admission Diagnosis Respiratory distress, sepsis Assessment and Plan Hypoxia/Resp failure/COVID-19 - Use BiPap at night as needed at 30%. Continue to wean usage. Currently on O2 via nasal cannula. - Continue cefepime 2000 mg IV every 12 hrs - Continue dexamethasone 6 mg IV daily - Continue albuterol inhaler 4 puffs every 4 hrs or as needed - Offered remdesivir for COVID but patient declined at this time CHF - Continue Lasix 20 mg IV daily Afib - On enoxaraprin 40 mg BID for DVT prophylaxis but is not on Eliquis d/t recent GI bleed. Is taking ASA 81 mg and will continue that. - Continue Amiodarone 200 mg BID PO daily - Continue carvedilol 12.5 mg BID PO daily Diabetes - Continue sliding scale insulin Hypothyroidism - Continue levothyroxine 75 mcg/d PO HTN - Continue losartan 25 mg PO daily Bacturia - Continue cefepime 2000 mg IV FITZ SALINAS MD 07/02/23 1447: Past Qnhdfvz-Ijzdoz-Bbalde Hx Family Medical History Cancer 09 SISTER Family history: Diabetes mellitus 03 MOTHER Stroke 03 MOTHER Assessment/Plan Admission Diagnosis Admission Status: Inpatient Order (span 2 midnights) Reason for Inpatient Admission: see below Assessment and Plan Admitted to the hospital secondary to acute hypoxic respiratory failure due to COVID-19 and pulmonary edema. She was placed on BiPAP overnight due to increased work of breathing and respiratory distress but has already improved this morning and is weaned off and is on nasal cannula. She reports feeling much better than she did yesterday. Chest x-ray showed likely edema versus infiltrate she does not have a leukocytosis. We will continue cefepime given the extent of her respiratory distress on arrival. But we will continue Decadr on. Patient was offered remdesivir but declined. We will continue Lasix that she received in the emergency department. Telemetry ICU was consulted. MAT Protocol Continue home meds as appropriate. Supervisory-Addendum Brief Verification & Attestation Participated in pt care: history, MDM, physical Personally performed: exam, history, MDM, supervision of care Care discussed with: Medical Student Procedures: n/a Results interpretation: Verified all documentation Verification and Attestation of Medical Student E/M Service A medical student performed and documented this service in my presence. I reviewed and verified all information documented by the medical student and made modifications to such information, when appropriate. I personally performed the physical exam and medical decision making. Fitz Salinas, Jul 02, 2023,14:49 LIVIA HOLBROOK Jul 02, 2023 08:12 FITZ SALINAS MD Jul 02, 2023 14:47
[2023-07-02] MEDS: dexAMETHasone INJ 4 MG/ML SDV IV SCH (08:45)
[2023-07-02] MEDS: FAMOTIDINE 20 MG TABLET PO SCH (08:45)
[2023-07-02] MEDS: ENOXAPARIN 40 MG/0.4 ML SYRINGE SC SCH ×2 (08:45→22:16)
[2023-07-02] MEDS ORDERED: CEFEPIME INJECTION 2,000 MG in NS (IVPB) 50 ML 50 ML IV SCH (09:00)
[2023-07-02] MEDS: VASOPRESSIN INJECTION 20 UNIT in NS (IVPB) 100 ML 100 ML IV SCH ×2 (09:05→20:23)
[2023-07-02] MEDS: NOREPINEPHRINE 8 MG/250 ML 250 ML IV SCH ×2 (09:05→20:23)
--- NOTE | 2023-07-02 09:25 | Diagnostic Imaging Report ---
INDICATION: Respiratory failure. Time of Exam: 5:32 AM Correlation is made with prior chest from one day earlier. FINDINGS: Heart size is stable. Right chest wall port has tip overlying the SVC right atrial junction. There has been partial clearing of bilateral infiltrates when compared with yesterday's study. There are some mild mixed interstitial and airspace infiltrates remaining. No effusion or pneumothorax is detected. IMPRESSION: Significant improved aeration of both lungs when compared with examination one day earlier. Dictated by: Dictated on workstation # [id number]
[2023-07-02] MEDS ORDERED: CARB-270 OU (16:06)
[2023-07-02] MEDS ORDERED: NITR0.4T39 SL (16:06)
[2023-07-02] MEDS ORDERED: CHOL20002 PO (16:06)
[2023-07-02] MEDS ORDERED: FURO20TA4 PO (16:06)
[2023-07-02] MEDS ORDERED: PANT40TA52 PO (16:06)
[2023-07-02] MEDS ORDERED: INSU100I78 SQ ×2 (16:06)
[2023-07-02] MEDS ORDERED: LOSA50TA63 PO (16:06)
[2023-07-02] MEDS ORDERED: AMIO200T65 PO (16:06)
[2023-07-02] MEDS ORDERED: CARV25TA PO (16:06)
[2023-07-02] MEDS ORDERED: CYAN500T8 PO (16:06)
[2023-07-02] MEDS ORDERED: AMLO-250 PO (16:06)
[2023-07-02] MEDS ORDERED: POLY17PO6 PO (16:06)
[2023-07-02] MEDS: FUROSEMIDE INJECTION 40 MG/4 ML VIAL IVP SCH (16:44)
[2023-07-03 05:51] LABS: BASOPHILS % (AUTO) 0 % (0-10); EOSINOPHILS % (AUTO) 0 % (0-10); HEMATOCRIT 31 % (35-52); HEMOGLOBIN 9.2 g/dL (11.5-16.0); LYMPHOCYTES # (AUTO) 0.7 10^3/uL (1.0-4.0); LYMPHOCYTES % (AUTO) 13 % (12-44); MEAN CORPUSCULAR HEMOGLOBIN 28 pg (25-34); MEAN CORPUSCULAR HGB CONC 29 g/dL (32-36); MEAN CORPUSCULAR VOLUME 95 fL (80-99); MEAN PLATELET VOLUME 11.1 fL (9.0-12.2); MONOCYTES # (AUTO) 0.3 10^3/uL (0.0-1.0); MONOCYTES % (AUTO) 6 % (0-12); NEUTROPHILS # (AUTO) 4.2 10^3/uL (1.8-7.8); NEUTROPHILS % (AUTO) 81 % (42-75); PLATELET COUNT 146 10^3/uL (130-400); WHITE BLOOD COUNT 5.2 10^3/uL (4.3-11.0)
[2023-07-03 05:59] LABS: ALBUMIN 3.3 GM/DL (3.2-4.5); POTASSIUM 4.2 MMOL/L (3.6-5.0)
[2023-07-03 06:00] LABS: CALCIUM 9.1 MG/DL (8.5-10.1)
[2023-07-03 06:01] LABS: TOTAL PROTEIN 5.8 GM/DL (6.4-8.2)
[2023-07-03 06:03] LABS: BILIRUBIN,TOTAL 0.7 MG/DL (0.1-1.0)
[2023-07-03 06:05] LABS: CREATININE SERUM 1.37 MG/DL (0.60-1.30); PHOSPHORUS 2.8 MG/DL (2.3-4.7)
[2023-07-03 06:08] LABS: MAGNESIUM 2.1 MG/DL (1.6-2.4)
[2023-07-03] MEDS: MAGNESIUM 1 GM/100 ML IVPB 100 ML IV SCH (06:14)
[2023-07-03] MEDS: POTASSIUM CHLORIDE 20 MEQ TABLET PO SCH (06:14)
[2023-07-03] MEDS: POTASSIUM CL 10MEQ/50ML IVPB 50 ML IV SCH (06:14)
[2023-07-03] MEDS: FUROSEMIDE INJECTION 40 MG/4 ML VIAL IVP SCH (06:44)
[2023-07-03] MEDS: inSUlin ASPART 1 UNIT/0.01 ML (PER UNIT) SC SCH ×4 (06:45→21:13)
[2023-07-03] MEDS: CEFEPIME 1,000 MG/NS 50 ML IVPB IV SCH ×2 (06:45)
[2023-07-03] MEDS: CATHETER FLUSH 10 ML SYR IVP SCH ×3 (06:45→21:13)
[2023-07-03] MEDS: ENOXAPARIN 40 MG/0.4 ML SYRINGE SC SCH ×2 (08:18→21:11)
[2023-07-03] MEDS: FAMOTIDINE 20 MG TABLET PO SCH (08:18)
[2023-07-03] MEDS: dexAMETHasone INJ 4 MG/ML SDV IV SCH (08:18)
[2023-07-03] MEDS: NOREPINEPHRINE 8 MG/250 ML 250 ML IV SCH (08:20)
[2023-07-03] MEDS: VASOPRESSIN INJECTION 20 UNIT in NS (IVPB) 100 ML 100 ML IV SCH (08:20)
[2023-07-03] MEDS ORDERED: ACETAMINOPHEN 500 MG TABLET PO PRN (09:45)
[2023-07-03] MEDS ORDERED: NITROGLYCERIN 0.4 MG SL TABLETS BTL 25'S SL PRN (09:45)
[2023-07-03] MEDS ORDERED: DICLOFENAC 1% GEL 50 GM TUBE TOP PRN (09:45)
--- NOTE | 2023-07-03 09:54 | Progress Note - Hospitalist ---
LIVIA HOLBROOK 07/03/23 0953: Subjective HPI/CC On Admission Date Seen by Provider: Jul 03, 2023 Time Seen by Provider: 09:48 Pt is an 83-year-old woman who presented to the emergency room in respiratory distress last night. Pt able to provide some hx and has son at bedside who also helps. Patient is COVID positive. Reports yesterday evening she had a sudden onset SOB that did not resolve with O2 and continued to worsen. She has a history of heart disease with inoperable small vessel coronary artery disease, CHF. AFib, hypertension, history of GI bleed, diabetes, hypothyroidism, and non- Hodgkin's lymphoma followed by Dr. Torres. She denies having COPD and does not use respiratory treatments. She does use oxygen only at night. She has followed with Dr. Sharma for cardiology and sees the [facility] in [place] for primary care. She is not anticoagulated for her atrial fibrillation due to recent GI bleed requiring transfusion but is taking a baby aspirin. Of note, she also reports herpes zoster rash along her scalp and the L side of her face that is extremely tender to touch. Denies visual changes. Subjective/Events-last exam Pt is doing well and did not need BiPap last night in order to sleep. Is currently on O2 via nasal cannula 2 L. Pt states that she has been breathing well w/o any coughing or significant dyspnea. States that she feels urinary frequency but denies dysuria. Reports that she voided in her sheets despite having a catheter and she could not control that. She reports feeling like she still needs to urinate despite having just voided. She is on lasix. Pt will be moved down to the 4th floor today. Review of Systems General: No Chills, No Night Sweats HEENT: No Head Aches, No Visual Changes Pulmonary: No Dyspnea, No Cough Cardiovascular: Edema; No: Chest Pain, Palpitations Gastrointestinal: No: Nausea, Abdominal Pain Genitourinary: No Dysuria; Frequency, Incontinence; No Hematuria Musculoskeletal: No: neck pain, shoulder pain Neurological: No: Change in speech, Confusion Focused Exam Sepsis Stage: Ruled Out Lactate Level 07/01/23 19:40: Lactic Acid Level 3.51*H 07/01/23 21:43: Lactic Acid Level 0.88 Time of Focused Exam: 20:40 Objective Exam Vital Signs Vital Signs Date Time Temp Pulse Resp B/P (MAP) Pulse Ox O2 Delivery O2 Flow Rate FiO2 07/03/23 12:00 60 17 149/75 (106) 94 Nasal Cannula 2.00 07/03/23 11:06 36.0 07/02/23 08:00 30 Capillary Refill : Less Than 3 Seconds General Appearance: No Apparent Distress, Chronically ill HEENT: PERRL/EOMI Neck: Normal Inspection Respiratory: Chest Non Tender, No Accessory Muscle Use, No Respiratory Distress, Crackles Cardiovascular: No JVD, Normal Peripheral Pulses Gastrointestinal: Non Tender, Soft Extremity: No Calf Tenderness, Pedal Edema Neurologic/Psychiatric: Alert, Oriented x3, No Motor/Sensory Deficits, Normal Mood/Affect Skin: Normal Color, Warm/Dry Lymphatic: No Adenopathy Results/Procedures Lab Laboratory Tests 07/03/23 05:00 Patient resulted labs reviewed. Assessment/Plan Assessment and Plan Assess & Plan/Chief Complaint Hypoxia/Resp failure/COVID-19 - Continue O2 via nasal cannula. - Switch cefepime to Keflex 500 mg PO BID - Continue dexamethasone 6 mg IV daily - Continue albuterol inhaler 4 puffs every 4 hrs or as needed CHF - Continue Lasix 20 mg IV daily Afib - On enoxaraprin 40 mg BID for DVT prophylaxis but is not on Eliquis d/t recent GI bleed. Is taking ASA 81 mg and will continue that. - Continue Amiodarone 200 mg BID PO daily Diabetes - Continue sliding scale insulin - Add long acting insulin glargine 55 units subQ AM and 22 units PM Hypothyroidism - Continue levothyroxine 75 mcg/d PO HTN - Continue losartan 25 mg PO daily Bacturia - Switched to Keflex 500 mg PO BID Incontinence - May be d/t Lasix but also has hx of oxybutyrin usage - Add oxybutyrin 10 mg PO daily FITZ SALINAS MD 07/03/23 1520: Assessment/Plan Assessment and Plan Assess & Plan/Chief Complaint Reports feeling much better today. She is actually requesting to go home. She has not been out of bed yet though and still has a Cole catheter in. She is still on oxygen which she normally does not wear. We talked about steps prior to discharging to make sure she would be safe at home and she expresses understanding. We will transfer her out of the ICU and get PT and OT to see her. I will resume her home meds today. Her urine culture is growing Proteus so will switch to Keflex per sensitivities of his cultures. Supervisory-Addendum Brief Verification & Attestation Participated in pt care: history, MDM, physical Personally performed: exam, history, MDM, supervision of care Care discussed with: Medical Student Procedures: n/a Results interpretation: Verified all documentation Verification and Attestation of Medical Student E/M Service A medical student performed and documented this service in my presence. I reviewed and verified all information documented by the medical student and made modifications to such information, when appropriate. I personally performed the physical exam and medical decision making. Fitz Salinas, Jul 03, 2023,15:19 LIVIA HOLBROOK Jul 03, 2023 09:53 FITZ SALINAS MD Jul 03, 2023 15:20
[2023-07-03] MEDS ORDERED: ARTIFICIAL TEARS Ophth solution 0.4 ML UNIT DOSE OU PRN (10:15)
[2023-07-03] MEDS: carvediloL 12.5 MG TABLET PO SCH ×2 (10:34→21:12)
[2023-07-03] MEDS: amLODIPine 5 MG TABLET PO SCH (10:34)
[2023-07-03] MEDS: RT-ALBUTEROL HFA 8.5 GM INHALER IH SCH ×2 (10:54→21:04)
[2023-07-03] MEDS: ISOSORBIDE MONONITRATE 30 MG TABLET PO SCH (11:01)
[2023-07-03] MEDS: VITAMIN D3 25 MCG (1,000 UNITS) TABLET PO SCH ×2 (11:01→17:18)
[2023-07-03] MEDS: LEVOTHYROXINE 75 MCG TABLET PO SCH (11:01)
[2023-07-03] MEDS: ASPIRIN enteric coated 81MG TABLET PO SCH (11:01)
[2023-07-03] MEDS: POTASSIUM CHLORIDE 10 MEQ TABLET PO SCH (11:01)
[2023-07-03] MEDS: inSUlin DETERMIR 1 UNIT/0.01 ML (CHARGE PER UNIT) SQ SCH ×2 (11:01→21:13)
[2023-07-03] MEDS: PANTOPRAZOLE 40 MG TABLET PO SCH (11:01)
[2023-07-03] MEDS: AMIODARONE 200 MG TABLET PO SCH (11:02)
[2023-07-03] MEDS: LOSARTAN 50 MG TABLET PO SCH (11:02)
--- NOTE | 2023-07-03 11:38 | Occupational Therapy Eval ---
OT Evaluation-General/PLF Medical Diagnosis Admission Date Jul 01, 2023 at 21:47 Medical Diagnosis: SOA Onset Date: Jul 01, 2023 Therapy Diagnosis Therapy Diagnosis: weakness Height/Weight Height (Feet): 5 Height (Inches): 8.00 Weight (Pounds): 213 Weight (Ounces): 0.0 Precautions Precautions/Isolations: Airborne Isolation Referral Referral Reason: Self Care, Evaluation/Treatment Medical History Pertinent Medical History: Atrial Fib, Arthritis, CVA, DM, HTN, Hypothroidism, Lymphoma, OA Additional Medical History 83-year-old woman presents to the emergency room in respiratory distress. Patient provides some history but has difficulty talking due to her respiratory distress. Son later provides some additional history. Son is Leonides Leger ([phone]). Symptoms were of relatively sudden onset this evening. She does have history of heart disease with inoperable small vessel coronary artery disease and reportedly congestive heart failure. Patient denied any chest pain. She has audible wheezing and decreased air movement with oxygen saturation in the high 60s on arrival. She does not report any history of COPD and does not use respiratory treatments. She does use oxygen at night. She has had multiple admissions recently for a variety of issues. She has numerous comorbidities including hypertension, atrial fibrillation, history of GI bleed, CHF, coronary artery disease, and non-Hodgkin's lymphoma followed by Dr. Torres. She has followed with Dr. Sharma for cardiology and sees the [facility] in [place] for primary care. She is not anticoagulated for her atrial fibrillation due to recent GI bleed requiring transfusion. Current History Of note, she also reports herpes zoster rash along her scalp and the L side of her face that is extremely tender to touch. Denies visual change. COVID positive Reviewed History: Yes Social History Home: Single Level Current Living Status: Other Family (son) Entry Into Home: Stairs With Railing ADL-Prior Level of Function SCALE: Activities may be completed with or without assistive devices. 3-Iatyegkwhd-qfmsfye completes the activity by him/herself with no assistance from a helper. 5-Set-up or Clean-up Assistance-helper sets up or cleans up; patient completes activity. [place] assists only prior to or following the activity. 4-Supervision or Touching Assistance-helper provides verbal cues and/or touching/steadying and/or contact guard assistance as patient completes a ctivity. Assistance may be provided throughout the activity or intermittently. 3-Partial/Moderate Assistance-helper does LESS THAN HALF the effort. [place] lifts, holds or supports trunk or limbs, but provides less than half the effort. 2-Substantial/Maximal Assistance-helper does MORE THAN HALF the effort. [place] lifts or holds trunk or limbs and provides more than half the effort. 1-Cssoulzmz-zrtjyj does ALL the effort. Patient does none of the effort to complete the activity. Or, the assistance of 2 or more helpers is required for the patient to complete the activity. If activity was not attempted, code reason: 7-Patient Refused. 9-Not Applicable-not attempted and the patient did not perform the activity before the current illness, exacerbation or injury. 10-Not Attempted due to Environmental Limitations-(lack of equipment, weather restraints, etc.). 88-Not Attempted due to Medical Conditions or Safety Concerns. ADL PLOF Comments Pt admitted to [facility] 2022 with myopathy. At [facility], pt needed some assistance with ADLS. Upon initial evaluation, pt was independent with eating, required set up with oral care and UE dressing, CGA-SUP with toileting, min-mod A LE dressing and showering, and max A footwear. OT Tx focused on increasing BUE strength and activity tolerance, and increasing safety and independence with ADLS. Pt made good progress, attaining IND level with all ADLS. Pt discharged 04/22/23 from facility, Self Care: Needed Some Help Functional Cognition: Needed Some Help DME/Equipment: Bath Chair, Grab Bars, Reachers, Sock Aid Drive Self: No OT Current Status Subjective Agreeable to participate Mental Status/Objective Patient Orientation: Person, Confused (Thinks today is Thursday and admitted to hospital last night ), Place Attachments: Cole Catheter, IV, Oxygen, Telemetry Current Glasses/Contacts: Yes Hand Dominance: Right Upper Extremity ROM limited joint approximation d/t excessive soft tissue Upper Extremity Strength 3/5 grossly ADL-Treatment Eating (QC): 6 Oral Hygiene (QC): 5 Shower/Bathe Self (QC): 7 Upper Body Dressing (QC): 3 Lower Body Dressing (QC): 2 On/Off Footwear (QC): 1 Toileting Hygiene (QC): 2 Education OT Patient Education: Correct positioning, Modified ADL techniques, Progress toward Goal/Update tx plan, Purpose of tx/functional activities, Reviewed precautions, Rehab process, Safety issues, Transfer techniques, Use of adapted equipment Teaching Recipient: Patient Teaching Methods: Demonstration, Discussion Response to Teaching: Reinforcement Needed OT Grader Meat Goals Half-Way Goals Eating (QC): 6 Oral Hygiene (QC): 5 Toileting Hygiene (QC): 4 Shower/Bathe Self (QC): 4 Upper Body Dressing (QC): 4 Lower Body Dressing (QC): 4 On/Off Footwear (QC): 4 1=Demonstrate adherence to instructed precautions during ADL tasks. 2=Patient will verbalize/demonstrate understanding of assistive devices/modifications for ADL. 3=Patient will improve strength/tolerance for activity to enable patient to perform ADL's. OT Education/Plan Problem List/Assessment Assessment: Decreased Activ Tolerance, Decreased Safety Aware, Decreased UE Strength, Impaired Bed Mobility, Impaired Coordination, Impaired Funct Balance, Impaired Self-Care Skills, Restricted Funct UE ROM Discharge Recommendations Plan/Recommendations: Continue POC Treatment Plan/Plan of Care Treatment,Training & Education: Yes Patient would benefit from OT for education, treatment and training to promote independence in ADL's, mobility, safety and/or upper extremity function for ADL's. Plan of Care: ADL Retraining, Concurrent Therapy, Functional Mobility, Group Exercise/Act as Ind, UE Funct Exercise/Act, UE Neuromus Re-Ed/Coord Treatment Duration: Jul 10, 2023 Frequency: 3 times per week (3-5 times per week) Estimated Hrs Per Day: .25 hour per day Rehab Potential: Guarded Time Start Time: 12:40 Stop Time: 12:59 DATE: Jul 03, 2023 Total Time Billed (hr/min): 19 Billed Treatment Time EVM 19 min KAITY PARMAR OT Jul 03, 2023 11:38
--- NOTE | 2023-07-03 13:59 | Physical Therapy Evaluation ---
PT Evaluation-General Medical Diagnosis Admission Date Jul 01, 2023 at 21:47 Medical Diagnosis: SOA Onset Date: Jul 01, 2023 Therapy Diagnosis Therapy Diagnosis: Decreased functional mobility Height/Weight Height (Feet): 5 Height (Inches): 8.00 Weight (Pounds): 213 Weight (Ounces): 0.0 Precautions Precautions/Isolations: Airborne Isolation, Fall Prevention, Standard Precautions Weight Bear Status Right Lower Extremity: Right Full Weight Bearing Left Lower Extremity: Left Full Weight Bearing Referral Physician: Rita Reason for Referral: Evaluation/Treatment Medical History Pertinent Medical History: Atrial Fib, Arthritis, CVA, DM, HTN, Hypothroidism, Lymphoma, OA Additional Medical History Atrial Fib, Arthritis, CVA, DM, HTN, Hypothroidism, Lymphoma, OA Current History ED on 07/01/23 for SOA and weakness Reviewed History: Yes Social History Home: Single Level Current Living Status: Other Family (Son ) Entry Into Home: Ramp, Stairs With Railing Pt lives in a single story home with family. 4 steps with B HR or a ramp to enter. Tub shower, SC, tall toilet Prior Prior Level of Function SCALE: Activities may be completed with or without assistive devices. 0-Bmrxasfdwl-hsgrdfn completes the activity by him/herself with no assistance from a helper. 5-Set-up or Clean-up Assistance-helper sets up or cleans up; patient completes activity. [place] assists only prior to or following the activity. 4-Supervision or Touching Assistance-helper provides verbal cues and/or touching/steadying and/or contact guard assistance as patient completes activity. Assistance may be provided throughout the activity or intermittently. 3-Partial/Moderate Assistance-helper does LESS THAN HALF the effort. [place] lifts, holds or supports trunk or limbs, but provides less than half the effort. 2-Substantial/Maximal Assistance-helper does MORE THAN HALF the effort. [place] lifts or holds trunk or limbs and provides more than half the effort. 0-Ptyptjmnb-mdgmdp does ALL the effort. Patient does none of the effort to complete the activity. Or, the assistance of 2 or more helpers is required for the patient to complete the activity. If activity was not attempted, code reason: 7-Patient Refused. 9-Not Applicable-not attempted and the patient did not perform the activity before the current illness, exacerbation or injury. 10-Not Attempted due to Environmental Limitations-(lack of equipment, weather restraints, etc.). 88-Not Attempted due to Medical Conditions or Safety Concerns. Bed Mobility: 6 Transfers (B,C,W/C): 6 Gait: 6 Stairs: 6 Wheelchair Mobility: 9 Indoor Mobility (Ambulation): Independent Stairs: Independent Prior Devices Use: Walker At [facility], pt was Mod I in the home with a stand-up walker, as well as negotiating stairs/the ramp to enter/exit the home. Pt reports having a tub shower that she doesn't really use and doing sponge baths. Has a stand-up walker and SPC. PT Evaluation-Current Subjective Pt is agreeable to PT Pain Location: No Pain Reported Objective Patient Orientation: Person, Place, Situation Attachments: Oxygen (1L), Cole Catheter, IV ROM/Strength ROM Lower Extremities WFL Strength Lower Extremities B LE MMT = 3+/5 Integumentary/Posture Bowel Incontinence: No Bladder Incontinence: Cole Cath Transfers Lying to Sitting/Side of Bed(Q: 4 Sit to Stand (QC): 3 Chair/Oob-gf-Olmue Xfer(QC): 3 Gait Does the Patient Walk?: Yes Mode of Locomotion: Walk Anticipated Mode of Locomotion: Walk Walk 10 feet (QC): 3 Distance: 10ft Gait Assistive Device: FWW Balance Sitting Static: Fair Sitting Dynamic: Fair Standing Static: Poor Standing Dynamic: Poor Treatment PT eval completed. Pt was SBA for supine > sit. Pt completed functional transfers with Min/Mod A and Mod encouragement. Pt ambulated 10ft with the FWW and Min A. After treatment session, pt was sitting up in the chair with call light in reach and all needs met. Assessment/Needs Pt tolerated PT fairly. Pt required encouragement throughout treatment session. Rehab Potential: Fair PT Legal Financial Specialist Goals Halfway Goals PT Halfway Goals Time Frame: Jul 10, 2023 Roll Left & Right (QC): 6 Sit to Lying (QC): 6 Lying-Sitting on Side/Bed(QC): 6 Sit to Stand (QC): 4 Chair/Fqb-rl-Gkbhp Xfer(QC): 4 Toilet Transfer (QC): 4 Car Transfer (QC): 4 Does the Patient Walk: Yes Walk 10 feet (QC): 4 Walk 50ft with 2 Turns (QC): 4 PT Plan Problem List Problem List: Activity Tolerance, Functional Strength, Safety, Balance, Gait, Transfer, Bed Mobility, ROM Treatment/Plan Treatment Plan: Continue Plan of Care Treatment Plan: Bed Mobility, Education, Functional Activity Timothy, Functional Strength, Group Therapy, Gait, Safety, Therapeutic Exercise, Transfers Treatment Duration: Jul 10, 2023 Frequency: 5 times per week Estimated Hrs Per Day: .25 hour per day Patient and/or Family Agrees t: Yes Safety Risks/Education Patient Education: Gait Training, Transfer Techniques, Correct Positioning, Safety Issues Teaching Recipient: Patient Teaching Methods: Demonstration, Discussion Response to Teaching: Reinforcement Needed Discharge Recommendations Therapy Discharge Recommendati: Post Acute PT Time Time In: 1300 Time Out: 1320 DATE: Jul 03, 2023 Total Billed Treatment Time: 20 Total Billed Treatment 20 min 1 visit FAM ZAPIEN PT Jul 03, 2023 13:59
[2023-07-03 16:23] VITALS: BP 131/68
--- NOTE | 2023-07-03 17:15 | Physician Query-Final Dx ---
BRYANNA SMITH 07/03/23 1715: Final Diagnosis Give Final Diagnosis Please give Final Diagnosis The medical record reflects the following clinical scenario: History/Risk factors: Per assessment and Plan admitted with :Hypoxia/Resp failure/COVID-19 and CHF, At. fib Clinical Findings: Admission VS/LABS: HR 71, RR 24, BP 179/89, SpO2 68% sat on room air T 36.1, WBC 6.9, glucose 293, , lactic acid 3.51, Treatment: ER: furosemide IV, cefepime IV, Ipratropium/albuterol, methylprednisolone, Question: Is Sepsis a clinically valid diagnosis? Sepsis was documented once in the Admission Diagnosis list with no further documentation of Sepsis in the medical record. If yes, please document in the Progress Notes and Discharge Summary. Yes, Sepsis is clinically valid, present on admission condition resolving No, Sepsis ruled out Other, with explanation of clinical findings Undetermined, no explanation for clinical findings In responding to this query, please exercise your independent professional judgment. The purpose of this communication is to more accurately reflect the complexity of your patients condition. The fact that a question is asked does not imply that any particular answer is desired or expected. Thank you for your timely response to this clarification. Bryanna Smith MSN, RN Clinical Co Founder & Ceo FITZ MCCARTHY MD 07/03/232032: Final Diagnosis Give Final Diagnosis No. Not septic. BRYANNA SMITH Jul 03, 2023 17:15 FITZ MCCARTHY MD Jul 03, 2023 20:33
[2023-07-03 19:37] VITALS: BP 152/66
[2023-07-03] MEDS: CEPHALEXIN 250 MG CAPSULE PO SCH (21:12)
[2023-07-03] MEDS: OXYBUTYNIN 5 MG TABLET PO SCH (21:12)
[2023-07-04] VITALS (7 sets, daily range): BP systolic 126–189; BP diastolic 58–86
[2023-07-04] MEDS: inSUlin ASPART 1 UNIT/0.01 ML (PER UNIT) SC SCH ×4 (05:33→20:33)
[2023-07-04] MEDS: CATHETER FLUSH 10 ML SYR IVP SCH ×3 (05:52→21:07)
[2023-07-04] MEDS: LEVOTHYROXINE 75 MCG TABLET PO SCH (05:52)
[2023-07-04] MEDS: THERAPEUTIC MULTIVITAMIN W/MINERALS TABLET PO SCH (05:52)
[2023-07-04] MEDS: CYANOCOBALAMIN 1,000 MCG TABLET PO SCH (05:53)
[2023-07-04 06:54] LABS: BASOPHILS % (AUTO) 0 % (0-10); EOSINOPHILS % (AUTO) 1 % (0-10); HEMATOCRIT 30 % (35-52); HEMOGLOBIN 9.2 g/dL (11.5-16.0); LYMPHOCYTES # (AUTO) 0.6 10^3/uL (1.0-4.0); LYMPHOCYTES % (AUTO) 14 % (12-44); MEAN CORPUSCULAR HEMOGLOBIN 29 pg (25-34); MEAN CORPUSCULAR HGB CONC 30 g/dL (32-36); MEAN CORPUSCULAR VOLUME 94 fL (80-99); MEAN PLATELET VOLUME 10.2 fL (9.0-12.2); MONOCYTES # (AUTO) 0.3 10^3/uL (0.0-1.0); MONOCYTES % (AUTO) 7 % (0-12); NEUTROPHILS # (AUTO) 3.3 10^3/uL (1.8-7.8); NEUTROPHILS % (AUTO) 78 % (42-75); PLATELET COUNT 147 10^3/uL (130-400); WHITE BLOOD COUNT 4.2 10^3/uL (4.3-11.0)
[2023-07-04 06:56] LABS: ALBUMIN 3.3 GM/DL (3.2-4.5)
[2023-07-04 06:58] LABS: CALCIUM 9.3 MG/DL (8.5-10.1)
[2023-07-04 06:59] LABS: TOTAL PROTEIN 5.8 GM/DL (6.4-8.2)
[2023-07-04 07:01] LABS: BILIRUBIN,TOTAL 0.6 MG/DL (0.1-1.0)
[2023-07-04 07:02] LABS: PHOSPHORUS 2.5 MG/DL (2.3-4.7)
[2023-07-04 07:06] LABS: MAGNESIUM 2.1 MG/DL (1.6-2.4)
[2023-07-04] MEDS: MAGNESIUM 1 GM/100 ML IVPB 100 ML IV SCH (07:31)
[2023-07-04] MEDS: POTASSIUM CHLORIDE 20 MEQ TABLET PO SCH (07:31)
[2023-07-04] MEDS: POTASSIUM CL 10MEQ/50ML IVPB 50 ML IV SCH (07:31)
[2023-07-04] MEDS: RT-ALBUTEROL HFA 8.5 GM INHALER IH SCH ×2 (08:39→21:43)
[2023-07-04] MEDS: VITAMIN D3 25 MCG (1,000 UNITS) TABLET PO SCH ×2 (08:56→18:10)
[2023-07-04] MEDS: POTASSIUM CHLORIDE 10 MEQ TABLET PO SCH (08:56)
[2023-07-04] MEDS: OXYBUTYNIN 5 MG TABLET PO SCH ×2 (08:57→21:05)
[2023-07-04] MEDS: carvediloL 12.5 MG TABLET PO SCH ×2 (08:57→21:05)
[2023-07-04] MEDS: dexAMETHasone INJ 4 MG/ML SDV IV SCH (08:57)
[2023-07-04] MEDS: LOSARTAN 50 MG TABLET PO SCH (08:57)
[2023-07-04] MEDS: amLODIPine 5 MG TABLET PO SCH (08:57)
[2023-07-04] MEDS: ASPIRIN enteric coated 81MG TABLET PO SCH (08:57)
[2023-07-04] MEDS: ISOSORBIDE MONONITRATE 30 MG TABLET PO SCH (08:58)
[2023-07-04] MEDS: CEPHALEXIN 250 MG CAPSULE PO SCH ×2 (08:58→21:04)
[2023-07-04] MEDS: AMIODARONE 200 MG TABLET PO SCH (08:58)
[2023-07-04] MEDS: PANTOPRAZOLE 40 MG TABLET PO SCH (08:58)
[2023-07-04] MEDS: ENOXAPARIN 40 MG/0.4 ML SYRINGE SC SCH ×2 (08:58→21:05)
[2023-07-04] MEDS: LORATADINE 10 MG TABLET PO SCH (08:58)
[2023-07-04] MEDS: inSUlin DETERMIR 1 UNIT/0.01 ML (CHARGE PER UNIT) SQ SCH ×2 (08:58→21:06)
[2023-07-04] MEDS ORDERED: FUROSEMIDE 40 MG TABLET PO SCH (09:00)
--- NOTE | 2023-07-04 11:11 | Progress Note - Hospitalist ---
LIVIA HOLBROOK 07/04/23 1111: Subjective HPI/CC On Admission Pt is an 83-year-old woman who presented to the emergency room in respiratory distress last night. Pt able to provide some hx and has son at bedside who also helps. Patient is COVID positive. Reports yesterday evening she had a sudden onset SOB that did not resolve with O2 and continued to worsen. She has a history of heart disease with inoperable small vessel coronary artery disease, CHF. AFib, hypertension, history of GI bleed, diabetes, hypothyroidism, and non- Hodgkin's lymphoma followed by Dr. Torres. She denies having COPD and does not use respiratory treatments. She does use oxygen only at night. She has followed with Dr. Sharma for cardiology and sees the [facility] in [place] for primary care. She is not anticoagulated for her atrial fibrillation due to recent GI bleed requiring transfusion but is taking a baby aspirin. Of note, she also reports herpes zoster rash along her scalp and the L side of her face that is extremely tender to touch. Denies visual changes. Subjective/Events-last exam Pt is doing well and breathing w/o any difficulty. Upon entering the room, pt had sat up and rotated in her bed to eat breakfast by herself. She states that she did not need Bipap last night and continues to be on O2 2L via nasal cannula. She reports that she seldom coughs and she thinks that she has a tickle in the back of her throat. Pt expresses a desire to go home soon. Nurse stated that she had one episode of confusion and disorientation last night that has resolved. Focused Exam Lactate Level 07/01/23 19:40: Lactic Acid Level 3.51*H 07/01/23 21:43: Lactic Acid Level 0.88 Time of Focused Exam: 20:40 Objective Exam Vital Signs Vital Signs Date Time Temp Pulse Resp B/P (MAP) Pulse Ox O2 Delivery O2 Flow Rate FiO2 07/04/23 11: 36.4 61 16 189/86 (120) 93 Room Air 07/04/23 08:39 2.00 07/02/23 08:00 30 Capillary Refill : Less Than 3 Seconds General Appearance: No Apparent Distress, Chronically ill HEENT: PERRL/EOMI Neck: Normal Inspection, Non Tender Respiratory: Chest Non Tender, Lungs Clear, No Accessory Muscle Use, No Respiratory Distress, Crackles Cardiovascular: Regular Rate, Rhythm, No JVD Gastrointestinal: Normal Bowel Sounds, Non Tender, Soft Extremity: No Calf Tenderness, Pedal Edema, Other (1+ pulses in posterior tibialis b/l) Neurologic/Psychiatric: Alert, Oriented x3, No Motor/Sensory Deficits, Normal Mood/Affect Skin: Normal Color, Warm/Dry Results/Procedures Lab Laboratory Tests 07/04/23 06:37 Patient resulted labs reviewed. Assessment/Plan Assessment and Plan Assess & Plan/Chief Complaint Hypoxia/Resp failure/COVID-19 - Continue O2 via nasal cannula. - Continue Keflex 500 mg PO BID - Continue dexamethasone 6 mg PO daily - Continue albuterol inhaler 4 puffs every 4 hrs or as needed CHF - Continue Lasix 40 mg PO daily Afib - On enoxaraprin 40 mg BID for DVT prophylaxis but is not on Eliquis d/t recent GI bleed. Is taking ASA 81 mg and will continue that. - Continue Amiodarone 200 mg BID PO daily Diabetes - Continue sliding scale insulin - Continue long acting insulin glargine 55 units subQ AM and 22 units PM Hypothyroidism - Continue levothyroxine 75 mcg/d PO HTN - Continue losartan 25 mg PO daily Bacturia - Continue Keflex 500 mg PO BID Incontinence - May be d/t Lasix but also has hx of oxybutyrin usage - Continue oxybutyrin 10 mg PO daily FITZ SALINAS MD 07/04/23 1335: Assessment/Plan Assessment and Plan Assess & Plan/Chief Complaint Pt repors doing well. Wanting to go home. Discussed discharge criteria and how she is still quite weak. She is acknowledges this. Will continue PT/ OT. Switch to oral decadron. Wean oxygen as able. Supervisory-Addendum Brief Verification & Attestation Participated in pt care: history, MDM, physical Personally performed: exam, history, MDM, supervision of care Care discussed with: Medical Student Procedures: n/a Results interpretation: Verified all documentation Verification and Attestation of Medical Student E/M Service A medical student performed and documented this service in my presence. I reviewed and verified all information documented by the medical student and made modifications to such information, when appropriate. I personally performed the physical exam and medical decision making. Fitz Salinas, Jul 04, 2023,13:32 LIVIA HOLBROOK Jul 04, 2023 11:11 FITZ SALINAS MD Jul 04, 2023 13:35
--- NOTE | 2023-07-04 14:10 | Physical Therapy Progress Note ---
Therapy Progress Note Patient stated that she had already walked in the room and that she would walk again later with nursing. KARISHMA PEREZ PT Jul 04, 2023 14:10
[2023-07-04] MEDS: MICONAZOLE 2% POWDER 90 GM TOP SCH (21:06)
[2023-07-05] VITALS (7 sets, daily range): BP systolic 128–168; BP diastolic 60–77
[2023-07-05] MEDS: inSUlin ASPART 1 UNIT/0.01 ML (PER UNIT) SC SCH ×4 (05:58→20:52)
[2023-07-05] MEDS: THERAPEUTIC MULTIVITAMIN W/MINERALS TABLET PO SCH (06:12)
[2023-07-05] MEDS: LEVOTHYROXINE 75 MCG TABLET PO SCH (06:12)
[2023-07-05] MEDS: CYANOCOBALAMIN 1,000 MCG TABLET PO SCH (06:12)
[2023-07-05] MEDS: VITAMIN D3 25 MCG (1,000 UNITS) TABLET PO SCH ×2 (06:13→17:12)
[2023-07-05] MEDS: dexAMETHasone 6 MG TABLET PO SCH (06:13)
[2023-07-05] MEDS: CATHETER FLUSH 10 ML SYR IVP SCH ×3 (06:16→22:16)
[2023-07-05 06:26] LABS: BASOPHILS % (AUTO) 0 % (0-10); EOSINOPHILS % (AUTO) 0 % (0-10); HEMATOCRIT 31 % (35-52); HEMOGLOBIN 9.4 g/dL (11.5-16.0); LYMPHOCYTES # (AUTO) 0.7 10^3/uL (1.0-4.0); LYMPHOCYTES % (AUTO) 16 % (12-44); MEAN CORPUSCULAR HEMOGLOBIN 28 pg (25-34); MEAN CORPUSCULAR HGB CONC 30 g/dL (32-36); MEAN CORPUSCULAR VOLUME 94 fL (80-99); MEAN PLATELET VOLUME 10.1 fL (9.0-12.2); MONOCYTES # (AUTO) 0.3 10^3/uL (0.0-1.0); MONOCYTES % (AUTO) 8 % (0-12); NEUTROPHILS % (AUTO) 75 % (42-75); PLATELET COUNT 141 10^3/uL (130-400)
[2023-07-05 06:38] LABS: ALBUMIN 3.3 GM/DL (3.2-4.5); CHLORIDE 103 MMOL/L (98-107); POTASSIUM 3.9 MMOL/L (3.6-5.0); SODIUM 139 MMOL/L (135-145)
[2023-07-05 06:40] LABS: CALCIUM 9.1 MG/DL (8.5-10.1)
[2023-07-05 06:41] LABS: GLUCOSE 134 MG/DL (70-105); TOTAL PROTEIN 5.9 GM/DL (6.4-8.2)
[2023-07-05] MEDS: POTASSIUM CL 10MEQ/50ML IVPB 50 ML IV SCH (06:41)
[2023-07-05] MEDS: POTASSIUM CHLORIDE 20 MEQ TABLET PO SCH (06:41)
[2023-07-05 06:42] LABS: CARBON DIOXIDE 28 MMOL/L (21-32)
[2023-07-05 06:43] LABS: BILIRUBIN,TOTAL < 0.1 MG/DL (0.1-1.0)
[2023-07-05 06:44] LABS: ALKALINE PHOSPHATASE 87 U/L (40-136); PHOSPHORUS 2.8 MG/DL (2.3-4.7)
[2023-07-05 06:45] LABS: CREATININE SERUM 1.09 MG/DL (0.60-1.30); GFR ESTIMATED 51
[2023-07-05 06:46] LABS: BUN/CREATININE RATIO 23
[2023-07-05 06:48] LABS: ALANINE AMINOTRANSFERASE 24 U/L (0-55)
[2023-07-05] MEDS: MAGNESIUM 1 GM/100 ML IVPB 100 ML IV SCH (06:51)
[2023-07-05] MEDS: ASPIRIN enteric coated 81MG TABLET PO SCH (08:47)
[2023-07-05] MEDS: carvediloL 12.5 MG TABLET PO SCH ×2 (08:47→20:50)
[2023-07-05] MEDS: ISOSORBIDE MONONITRATE 30 MG TABLET PO SCH (08:47)
[2023-07-05] MEDS: RT-ALBUTEROL HFA 8.5 GM INHALER IH SCH ×2 (08:47→19:36)
[2023-07-05] MEDS: LOSARTAN 50 MG TABLET PO SCH (08:47)
[2023-07-05] MEDS: ENOXAPARIN 40 MG/0.4 ML SYRINGE SC SCH ×2 (08:47→20:51)
[2023-07-05] MEDS: POTASSIUM CHLORIDE 10 MEQ TABLET PO SCH (08:47)
[2023-07-05] MEDS: LORATADINE 10 MG TABLET PO SCH (08:47)
[2023-07-05] MEDS: amLODIPine 5 MG TABLET PO SCH (08:47)
[2023-07-05] MEDS: PANTOPRAZOLE 40 MG TABLET PO SCH (08:47)
[2023-07-05] MEDS: AMIODARONE 200 MG TABLET PO SCH (08:48)
[2023-07-05] MEDS: inSUlin DETERMIR 1 UNIT/0.01 ML (CHARGE PER UNIT) SQ SCH ×2 (08:48→20:51)
[2023-07-05] MEDS: OXYBUTYNIN 5 MG TABLET PO SCH ×2 (08:48→20:51)
[2023-07-05] MEDS: MICONAZOLE 2% POWDER 90 GM TOP SCH ×2 (08:48→20:52)
[2023-07-05] MEDS: CEPHALEXIN 250 MG CAPSULE PO SCH ×2 (08:48→20:51)
--- NOTE | 2023-07-05 10:05 | Progress Note - Hospitalist ---
Subjective HPI/CC On Admission Date Seen by Provider: Jul 05, 2023 Time Seen by Provider: 10:01 Pt is an 83-year-old woman who presented to the emergency room in respiratory distress last night. Pt able to provide some hx and has son at bedside who also helps. Patient is COVID positive. Reports yesterday evening she had a sudden on set SOB that did not resolve with O2 and continued to worsen. She has a history of heart disease with inoperable small vessel coronary artery disease, CHF. AFib, hypertension, history of GI bleed, diabetes, hypothyroidism, and non- Hodgkin's lymphoma followed by Dr. Torres. She denies having COPD and does not use respiratory treatments. She does use oxygen only at night. She has followed with Dr. Sharma for cardiology and sees the [facility] in [place] for primary care. She is not anticoagulated for her atrial fibrillation due to recent GI bleed requiring transfusion but is taking a baby aspirin. Of note, she also reports herpes zoster rash along her scalp and the L side of her face that is extremely tender to touch. Denies visual changes. Subjective/Events-last exam Pt states that she is breathing well without any cough and expresses a desire to go home soon. Reports that she has not been walking with PT and does not use IS. She reports that she is still unable to do everything that she does normally at home but wishes to go home soon nonetheless. She notes that she lives with her son at home and does not need any home health. Review of Systems General: No Chills, No Fatigue HEENT: No Visual Changes, No Sinus Congestion Pulmonary: No Dyspnea, No Cough Cardiovascular: No: Chest Pain, Palpitations Gastrointestinal: No: Nausea, Vomiting, Abdominal Pain, Diarrhea Genitourinary: No Dysuria, No Incontinence Musculoskeletal: No: neck pain, shoulder pain Neurological: No: Change in speech, Confusion Focused Exam Time of Focused Exam: 20:40 Objective Exam Vital Signs Vital Signs Date Time Temp Pulse Resp B/P (MAP) Pulse Ox O2 Delivery O2 Flow Rate FiO2 07/05/23 08:15 36.4 53 16 168/77 (107) 98 Room Air 07/05/23 03:31 2.50 07/04/23 13:34 21 Capillary Refill : Less Than 3 Seconds General Appearance: No Apparent Distress, Chronically ill HEENT: PERRL/EOMI, Normal ENT Inspection Neck: Full Range of Motion, Normal Inspection Respiratory: Chest Non Tender, Lungs Clear, Normal Breath Sounds, No Accessory Muscle Use, No Respiratory Distress Cardiovascular: Regular Rate, Rhythm, Normal Peripheral Pulses Gastrointestinal: Normal Bowel Sounds, Non Tender, Soft Extremity: Normal Inspection, Normal Range of Motion, Non Tender, No Pedal Edema Neurologic/Psychiatric: Alert, Oriented x3, No Motor/Sensory Deficits, Normal Mood/Affect Skin: Normal Color, Warm/Dry Results/Procedures Lab Laboratory Tests 07/05/23 06:15 Patient resulted labs reviewed. Assessment/Plan Assessment and Plan Assess & Plan/Chief Complaint Hypoxia/Resp failure/COVID-19 - Continue O2 via nasal cannula as needed. - Continue Keflex 500 mg PO BID - Continue dexamethasone 6 mg PO daily - Continue albuterol inhaler 4 puffs every 4 hrs or as needed - Encourage regular activity and movement. Pt declined PT - IS CHF - Continue Lasix 40 mg PO daily Afib - On enoxaraprin 40 mg BID for DVT prophylaxis but is not on Eliquis d/t recent GI bleed. Is taking ASA 81 mg and will continue that. - Continue Amiodarone 200 mg BID PO daily Diabetes - Continue sliding scale insulin - Continue long acting insulin glargine 55 units subQ AM and 22 units PM Hypothyroidism - Continue levothyroxine 75 mcg/d PO HTN - Continue losartan 25 mg PO daily Incontinence - May be d/t Lasix but also has hx of oxybutyrin usage - Continue oxybutyrin 10 mg PO daily LIVIA HOLBROOK Jul 05, 2023 10:05
[2023-07-06] VITALS: BP 146/56
[2023-07-06 03:40] VITALS: BP 121/60
[2023-07-06 05:49] LABS: BASOPHILS % (AUTO) 0 % (0-10); LYMPHOCYTES % (AUTO) 19 % (12-44)
[2023-07-06 05:51] LABS: EOSINOPHILS % (AUTO) 1 % (0-10); HEMATOCRIT 30 % (35-52); HEMOGLOBIN 8.9 g/dL (11.5-16.0); LYMPHOCYTES # (AUTO) 0.6 10^3/uL (1.0-4.0); MEAN CORPUSCULAR HEMOGLOBIN 28 pg (25-34); MEAN CORPUSCULAR HGB CONC 30 g/dL (32-36); MEAN CORPUSCULAR VOLUME 95 fL (80-99); MEAN PLATELET VOLUME 10.4 fL (9.0-12.2); MONOCYTES # (AUTO) 0.2 10^3/uL (0.0-1.0); MONOCYTES % (AUTO) 7 % (0-12); NEUTROPHILS # (AUTO) 2.4 10^3/uL (1.8-7.8); NEUTROPHILS % (AUTO) 73 % (42-75); PLATELET COUNT 138 10^3/uL (130-400); WHITE BLOOD COUNT 3.2 10^3/uL (4.3-11.0)
[2023-07-06 06:00] LABS: ALBUMIN 3.2 GM/DL (3.2-4.5); BILIRUBIN,TOTAL 0.4 MG/DL (0.1-1.0); CALCIUM 9.2 MG/DL (8.5-10.1); CREATININE SERUM 1.31 MG/DL (0.60-1.30); PHOSPHORUS 3.1 MG/DL (2.3-4.7); POTASSIUM 4.2 MMOL/L (3.6-5.0); TOTAL PROTEIN 5.4 GM/DL (6.4-8.2)
[2023-07-06] MEDS: inSUlin ASPART 1 UNIT/0.01 ML (PER UNIT) SC SCH ×2 (06:07→12:17)
[2023-07-06] MEDS: MAGNESIUM 1 GM/100 ML IVPB 100 ML IV SCH (06:08)
[2023-07-06] MEDS: POTASSIUM CL 10MEQ/50ML IVPB 50 ML IV SCH (06:08)
[2023-07-06] MEDS: POTASSIUM CHLORIDE 20 MEQ TABLET PO SCH (06:08)
[2023-07-06] MEDS: CATHETER FLUSH 10 ML SYR IVP SCH (06:08)
[2023-07-06] MEDS: LEVOTHYROXINE 75 MCG TABLET PO SCH (06:32)
[2023-07-06] MEDS: THERAPEUTIC MULTIVITAMIN W/MINERALS TABLET PO SCH (06:32)
[2023-07-06] MEDS: dexAMETHasone 6 MG TABLET PO SCH (06:32)
[2023-07-06] MEDS: CYANOCOBALAMIN 1,000 MCG TABLET PO SCH (06:32)
[2023-07-06 07:51] VITALS: BP 134/62
[2023-07-06] MEDS: RT-ALBUTEROL HFA 8.5 GM INHALER IH SCH (08:27)
[2023-07-06] MEDS: AMIODARONE 200 MG TABLET PO SCH (08:28)
[2023-07-06] MEDS: LOSARTAN 50 MG TABLET PO SCH (08:28)
[2023-07-06] MEDS: amLODIPine 5 MG TABLET PO SCH (08:28)
[2023-07-06] MEDS: OXYBUTYNIN 5 MG TABLET PO SCH (08:28)
[2023-07-06] MEDS: PANTOPRAZOLE 40 MG TABLET PO SCH (08:28)
[2023-07-06] MEDS: LORATADINE 10 MG TABLET PO SCH (08:28)
[2023-07-06] MEDS: carvediloL 12.5 MG TABLET PO SCH (08:28)
[2023-07-06] MEDS: POTASSIUM CHLORIDE 10 MEQ TABLET PO SCH (08:28)
[2023-07-06] MEDS: VITAMIN D3 25 MCG (1,000 UNITS) TABLET PO SCH (08:28)
[2023-07-06] MEDS: ASPIRIN enteric coated 81MG TABLET PO SCH (08:28)
[2023-07-06] MEDS: MICONAZOLE 2% POWDER 90 GM TOP SCH (08:29)
[2023-07-06] MEDS: inSUlin DETERMIR 1 UNIT/0.01 ML (CHARGE PER UNIT) SQ SCH (08:29)
[2023-07-06] MEDS: ENOXAPARIN 40 MG/0.4 ML SYRINGE SC SCH (08:29)
[2023-07-06] MEDS: CEPHALEXIN 250 MG CAPSULE PO SCH (08:33)
[2023-07-06] MEDS: ISOSORBIDE MONONITRATE 30 MG TABLET PO SCH (08:33)
--- NOTE | 2023-07-06 10:24 | Occupational Ther Daily Note ---
OT Current Status-Daily Note Subjective Agreeable kasie OT, reports she had physical therapy twice over weekend, chart reflected declined therapy. Pain Location: No Pain Reported Mental Status/Objective Patient Orientation: Person, Place, Time, Situation ADL-Treatment ambulated to bathroom w/ OT, demonstrated ability to change pull on brief, transfers with use of GBs and FWW Therapy Code Descriptions/Definitions Functional [place] Measure: 0=Not Assessed/NA 4=Minimal Assistance 1=Total Assistance 5=Supervision or Setup 2=Maximal Assistance 6=Modified [place] 3=Moderate Assistance 7=Complete IndependenceSCALE: Activities may be completed with or without assistive devices. 3-Mtjmcfvkio-ciydycz completes the activity by him/herself with no assistance from a helper. 5-Set-up or Clean-up Assistance-helper sets up or cleans up; patient completes activity. Adams assists only prior to or following the activity. 4-Supervision or Touching Assistance-helper provides verbal cues and/or touching/steadying and/or contact guard assistance as patient completes activity. Assistance may be provided throughout the activity or intermittently. 3-Partial/Moderate Assistance-helper does LESS THAN HALF the effort. Adams lifts, holds or supports trunk or limbs, but provides less than half the effort. 2-Substantial/Maximal Assistance-helper does MORE THAN HALF the effort. Adams lifts or holds trunk or limbs and provides more than half the effort. 2-Ezyrkrrqx-cmtdat does ALL the effort. Patient does none of the effort to complete the activity. Or, the assistance of 2 or more helpers is required for the patient to complete the activity. If activity was not attempted, code reason: 7-Patient Refused. 9-Not Applicable-not attempted and the patient did not perform the activity before the current illness, exacerbation or injury. 10-Not Attempted due to Environmental Limitations-(lack of equipment, weather restraints, etc.). 88-Not Attempted due to Medical Conditions or Safety Concerns. Eating (QC): 6 Oral Hygiene (QC): 5 Upper Body Dressing (QC): 5 Lower Body Dressing (QC): 5 On/Off Footwear: 5 Toileting Hygiene (QC): 5 Toilet Transfer (QC): 5 Education OT Patient Education: Correct positioning, Modified ADL techniques, Progress toward Goal/Update tx plan, Purpose of tx/functional activities, Reviewed precautions, Rehab process, Safety issues, Transfer techniques, Use of adapted equipment Teaching Recipient: Patient Teaching Methods: Discussion Response to Teaching: Return Demonstration OT Shelter Goals Shelter Goals Eating (QC): 6 Oral Hygiene (QC): 5 Toileting Hygiene (QC): 4 Shower/Bathe Self (QC): 4 Upper Body Dressing (QC): 4 Lower Body Dressing (QC): 4 On/Off Footwear (QC): 4 1=Demonstrate adherence to instructed precautions during ADL tasks. 2=Patient will verbalize/demonstrate understanding of assistive devices/modifications for ADL. 3=Patient will improve strength/tolerance for activity to enable patient to perform ADL's. OT Education/Plan Problem List/Assessment Assessment: No Skilled OT Needs ID'd Discharge Recommendations Plan/Recommendations: Discharge/Goals Met Treatment Plan/Plan of Care Patient would benefit from OT for education, treatment and training to promote independence in ADL's, mobility, safety and/or upper extremity function for ADL's. Plan of Care: ADL Retraining, Concurrent Therapy, Functional Mobility, Group Exercise/Act as Ind, UE Funct Exercise/Act, UE Neuromus Re-Ed/Coord Treatment Duration: Jul 10, 2023 Frequency: 3 times per week (3-5 times per week) Estimated Hrs Per Day: .25 hour per day Rehab Potential: Guarded remains in bed sitting upright, educated patient to call for assistance to ambulate Time Start Time: 09:23 Stop Time: 09:33 DATE: Jul 06, 2023 Total Time Billed (hr/min): 10 Billed Treatment Time ADL 10 min KAITY PARMAR OT Jul 06, 2023 10:24
[2023-07-06] MEDS ORDERED: CEPH250C PO (10:25)
[2023-07-06 14:11] VITALS: BP 134/62
== END 2023-07-06 14:13 | disposition home or self-care (01) | DRG 177 ==
LOC: EDUNIT# 19:31 → ER 19:33 → ICU 21:47 → 4TH 07-03 14:58
PROVIDERS: ADMIT Internal Medicine; ATTEND Internal Medicine
PROC: 3E0333Z Introduction of Anti-inflammatory into Peripheral Vein, Percutaneous Approach (ICD-10-PCS; principal; 2023-07-01)
PROC: 8E0ZXY6 Isolation (ICD-10-PCS; 2023-07-01)
PROC: 5A09357 Assistance with Respiratory Ventilation, Less than 24 Consecutive Hours, Continuous Positive Airway Pressure (ICD-10-PCS; 2023-07-01)
DX: U07.1 COVID-19 (principal); J12.82 Pneumonia due to coronavirus disease 2019; J96.01 Acute respiratory failure with hypoxia; C85.90 Non-Hodgkin lymphoma, unspecified, unspecified site; I50.9 Heart failure, unspecified; E11.9 Type 2 diabetes mellitus without complications; E03.9 Hypothyroidism, unspecified; I11.0 Hypertensive heart disease with heart failure; I25.10 Atherosclerotic heart disease of native coronary artery without angina pectoris; M19.90 Unspecified osteoarthritis, unspecified site; Z87.891 Personal history of nicotine dependence; Z79.82 Long term (current) use of aspirin; Z79.4 Long term (current) use of insulin; L89.302 Pressure ulcer of unspecified buttock, stage 2; R32 Unspecified urinary incontinence
CPT/HCPCS: 36415; 51702; 71045; 80053; 80061; 81000; 82805; 82947; 83605; 83735; 83874; 83880; 84100; 84439; 84443; 84484; 85025; 85610; 85730; 86141; 87040; 87077; 87088; 87186; 87636; 93005; 93041; 94640; 94660; 96365; 96375; 99291

== ENCOUNTER 2023-07-20 12:26 | Outpatient (RCR) | payer MEDICARE, OTHER ==
[~2023-07-20 12:26] MED LIST changes: +CARB-270 OU; +CEPH250C PO; +CHOL20002 PO; +CYAN500T8 PO; +INSU100I78 SQ
[2023-07-20 13:32] LABS: BASOPHILS % (AUTO) 0 % (0-10); EOSINOPHILS # (AUTO) 0.2 10^3/uL (0.0-0.3); EOSINOPHILS % (AUTO) 6 % (0-10); HEMATOCRIT 35 % (35-52); HEMOGLOBIN 10.2 g/dL (11.5-16.0); LYMPHOCYTES # (AUTO) 0.8 10^3/uL (1.0-4.0); LYMPHOCYTES % (AUTO) 25 % (12-44); MEAN CORPUSCULAR HEMOGLOBIN 28 pg (25-34); MEAN CORPUSCULAR HGB CONC 29 g/dL (32-36); MEAN CORPUSCULAR VOLUME 96 fL (80-99); MEAN PLATELET VOLUME 9.8 fL (9.0-12.2); MONOCYTES # (AUTO) 0.2 10^3/uL (0.0-1.0); MONOCYTES % (AUTO) 7 % (0-12); NEUTROPHILS # (AUTO) 1.8 10^3/uL (1.8-7.8); NEUTROPHILS % (AUTO) 60 % (42-75); PLATELET COUNT 141 10^3/uL (130-400)
[2023-07-20 13:54] LABS: ALBUMIN 3.8 GM/DL (3.2-4.5); BILIRUBIN,TOTAL 0.5 MG/DL (0.1-1.0); CALCIUM 9.4 MG/DL (8.5-10.1); CREATININE SERUM 1.24 MG/DL (0.60-1.30); POTASSIUM 4.3 MMOL/L (3.6-5.0); TOTAL PROTEIN 6.4 GM/DL (6.4-8.2)
== END 2023-07-30 | disposition home or self-care (01) ==
LOC: ONC 12:26
PROVIDERS: ATTEND Internal Medicine Hematology & Oncology
DX: C85.10 Unspecified B-cell lymphoma, unspecified site (principal); D72.819 Decreased white blood cell count, unspecified; I10 Essential (primary) hypertension; D64.9 Anemia, unspecified; E78.5 Hyperlipidemia, unspecified; R73.9 Hyperglycemia, unspecified; E66.9 Obesity, unspecified; K21.9 Gastro-esophageal reflux disease without esophagitis; Z79.899 Other long term (current) drug therapy
CPT/HCPCS: 80053; 82728; 83540; 83550; 85025; G0463; 99214